=== PATIENT | male | born 1945 | race Caucasian/White ===

== ENCOUNTER → 2016-06-22 | Outpatient (CLI) | payer OTHER ==
[~2016-06-22] MED LIST: APIX1TAB3 PO; ASPI81TA28 PO; CHOL20005 PO; CIPR-255 PO; CLC100X PO; CLOP1TAB15 PO; CYCL10TA6 PO; DORZ2SOL17 OP; FURO40TA3 PO; HYDR-4717 PO; HYDR-5688 PO; INSUINJ12 SC; LATA0.009 OPB; LOVA40TA3 PO; LOVA40TA43 PO; LVMI PO; LVMI SC; MAGNTAB4 PO; MCRK20 PO; MECL1TAB42 PO; METO100T7 PO; NTRGSL/4 UT; NVLG SQ; NVLGI SC; RANI300T2 PO; SLWMEC PO; TRIATAB3 PO; TRSOPS2 OPL; ULT/50 PO; WARF5TAB7 PO
[2016-06-23 06:34] LABS: ESTIMATED AVERAGE GLUCOSE 194 mg/dl; HA1C FLAG Normal (Normal)
== END | disposition home or self-care (01) ==
LOC: C.LABBFT 12:36
PROVIDERS: ATTEND Urology
DX: Z12.5 Encounter for screening for malignant neoplasm of prostate (principal); E11.39 Type 2 diabetes mellitus with other diabetic ophthalmic complication; E11.65 Type 2 diabetes mellitus with hyperglycemia

== ENCOUNTER → 2016-07-27 | Outpatient (CLI) | payer OTHER ==
[2016-07-27 12:30] LABS: CHOLESTEROL/HDL RATIO 3.4
[2016-07-27 12:48] LABS: ESTIMATED AVERAGE GLUCOSE 186 mg/dl; HA1C FLAG Normal (Normal)
== END | disposition home or self-care (01) ==
LOC: C.LABBFT 09:20
PROVIDERS: ATTEND Internal Medicine
DX: E78.5 Hyperlipidemia, unspecified (principal); E11.49 Type 2 diabetes mellitus with other diabetic neurological complication

== ENCOUNTER 2016-08-07 17:34 | Emergency (ER) | payer OTHER ==
[~2016-08-07] VITALS: Ht 172.7 cm; Wt 100.4 kg
[~2016-08-07 17:34] MED LIST changes: -ASPI81TA28 PO; -DORZ2SOL17 OP; -HYDR-5688 PO; -LATA0.009 OPB; -LOVA40TA3 PO; -LVMI PO; -LVMI SC; -MAGNTAB4 PO; -NVLG SQ; -SLWMEC PO; -WARF5TAB7 PO
[2016-08-07 17:47] VITALS: TEMP 36.9; Ht 172.7 cm; Wt 100.4 kg
[2016-08-07] MEDS ORDERED: LVMI PO (19:18)
[2016-08-07] MEDS ORDERED: LOVA40TA3 PO (19:18)
[2016-08-07] MEDS ORDERED: NVLG SQ (19:18)
[2016-08-07] MEDS ORDERED: WARF5TAB7 PO (19:18)
[2016-08-07] MEDS ORDERED: MAGNTAB4 PO (19:18)
[2016-08-07] MEDS ORDERED: DORZ2SOL17 OP (19:19)
[2016-08-07] MEDS ORDERED: LVMI SC (19:33)
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
--- NOTE | 2016-08-07 19:46 | EMERGENCY ROOM VISIT NOTE ---
ED Visit Note First contact with patient: 18:53 I have seen and examined this patient with Dez Sanford and generally agree with the treatment plan as discussed. 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 (4) Chronic Kidney Disease, Stage Iii (Moderate) Status: Chronic (5) Diab Mary Anne Wo Comp Type Ii Or Nos/Not Uncontrolled Status: Chronic (6) Hyperglycemia Status: Resolved (7) Hypertension Nos Status: Chronic (8) New onset a-fib Status: Chronic Surgical Problems: (1) H/O heart artery stent Status: Resolved Current/Historical Medications Scheduled Cholecalciferol (Vitamin D3), 2,000 UNITS PO QAM Clopidogrel (Plavix), 75 MG PO Q2D Dorzolamide Hcl (Trusopt Oph), 1 DROPS OP HS Furosemide (Lasix), 40 MG PO PRN Hydralazine Hcl (Apresoline), 75 MG PO QID Insulin Aspart (Novolog), SQ ACHS Insulin Detemir (Levemir), 18 UNITS PO QPM Insulin Detemir (Levemir), 15 UNITS SC QAM Latanoprost (Xalatan 0.005% Oph Tracy), 1 DROP OPB HS Lovastatin (Mevacor), 80 MG PO HS Magnesium Chloride (Slow-Mag Tab), 64 MG PO DAILY Metoprolol Succinate (Toprol Xl), 100 MG PO QAM Nitroglycerin (Nitrostat), 0.4 MG UT PRN Potassium Chloride (Klor-Con M20), 20 MEQ PO PRN Ranitidine Hcl (Zantac), 300 MG PO QAM Triamterene/Hctz (Triamterene/Hctz 37.5-25MG), 1 TAB PO QAM Warfarin Sod (Jantoven), 5 MG PO D Allergies Coded Allergies: Penicillins (Verified Allergy, Severe, FACIAL SWELLING AND RASH, 06/03/15) Amoxicillin (Verified Allergy, Intermediate, RASH, 06/03/15) Clavulanic Acid (Verified Allergy, Intermediate, RASH, 06/03/15) Azithromycin (Unverified Allergy, Unknown, per nephro note, 06/03/15) Cholestyramine (Unverified Allergy, Unknown, per nephro note, 06/03/15) Niacin (Unverified Allergy, Unknown, per nephro note, 06/03/15) Phenylephrine (Unverified Allergy, Unknown, per nephro note, 06/03/15) Statins (Verified Allergy, Unknown, JOINT STIFFNESS AND PAIN, 06/03/15) Vital Signs Date Time Temp Pulse Resp B/P Pulse Ox O2 Delivery O2 Flow Rate FiO2 08/07/16 17:47 36.9 78 20 160/90 94 Room Air Departure Information Referrals Bon Macias M.D. (PCP) Patient Instructions My [facility]
[2016-08-07] MEDS ORDERED: HYDR-5688 PO (20:03)
[2016-08-07 20:05] VITALS: BP 169/96; PULSE 91; O2SAT 96
[2016-08-07] MEDS ORDERED: LATA0.009 OPB (23:10)
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
== END 2016-08-07 20:08 | disposition home or self-care (01) ==
LOC: C.EDB 17:35 → C.EDD 20:08
DX: M25.511 Pain in right shoulder (principal); S22.41XA Multiple fractures of ribs, right side, initial encounter for closed fracture; V18.0XXA Pedal cycle driver injured in noncollision transport accident in nontraffic accident, initial encounter; Y92.096 Garden or yard of other non-institutional residence as the place of occurrence of the external cause; G51.0 Bell's palsy; I25.10 Atherosclerotic heart disease of native coronary artery without angina pectoris; N18.3 Chronic kidney disease, stage 3 (moderate); E11.9 Type 2 diabetes mellitus without complications; I12.9 Hypertensive chronic kidney disease with stage 1 through stage 4 chronic kidney disease, or unspecified chronic kidney disease; I48.91 Unspecified atrial fibrillation; Z79.4 Long term (current) use of insulin; Z79.01 Long term (current) use of anticoagulants; Z79.02 Long term (current) use of antithrombotics/antiplatelets; Z79.899 Other long term (current) drug therapy

== ENCOUNTER → 2016-08-23 | Outpatient (CLI) | payer OTHER ==
[~2016-08-23] MED LIST changes: -APIX1TAB3 PO; +ASPI81TA28 PO; -CIPR-255 PO; -CLC100X PO; -CYCL10TA6 PO; +DORZ2SOL17 OP; +HYDR-5688 PO; -INSUINJ12 SC; +LATA0.009 OPB; +LOVA40TA3 PO; -LOVA40TA43 PO; +LVMI PO; +LVMI SC; +MAGNTAB4 PO; -MECL1TAB42 PO; +NVLG SQ; -NVLGI SC; +SLWMEC PO; -TRSOPS2 OPL; -ULT/50 PO; +WARF5TAB7 PO
[2016-08-23 12:44] LABS: URINE APPEARANCE CLEAR (CLEAR); URINE BILIRUBIN NEG (NEG); URINE COLOR YELLOW; URINE EPITHELIAL CELL AUTO 0-5 /lpf (0-5); URINE NITRITE NEG (NEG); URINE SPECIFIC GRAVITY 1.017 (1.000-1.030); UROBILINOGEN NEG (NEG)
[2016-08-23 12:55] LABS: MANUAL MICROSCOPIC REQUIRED? NO; REVIEW REQ? NO
[2016-08-23 12:59] LABS: URINE PROTIEN/CREAT RATIO 0.4 (0-0.2); URINE TOTAL PROTEIN 50.8 mg/dl (0-11.9)
[2016-08-23 13:13] LABS: HEMATOCRIT 48.6 % (42-52); MEAN CORPUSCULAR HEMOGLOBIN 32.2 pg (25-34); MEAN CORPUSCULAR HGB CONC 35.8 g/dl (32-36); MEAN PLATELET VOLUME 10.2 fL (7.4-10.4); PLATELET COUNT 217 K/uL (130-400)
[2016-08-23 13:47] LABS: BLOOD UREA NITROGEN 29 mg/dl (7-18); CARBON DIOXIDE 31 mmol/L (21-32); CHLORIDE 101 mmol/L (98-107); GLUCOSE 268 mg/dl (70-99); POTASSIUM 4.5 mmol/L (3.5-5.1); SODIUM 140 mmol/L (136-145)
[2016-08-23 13:48] LABS: PHOSPHORUS 2.8 mg/dl (2.5-4.9)
[2016-08-23 13:55] LABS: CALCIUM 9.3 mg/dl (8.5-10.1)
== END | disposition home or self-care (01) ==
LOC: C.LABBFT 07:51
PROVIDERS: ATTEND Internal Medicine Nephrology
DX: I12.9 Hypertensive chronic kidney disease with stage 1 through stage 4 chronic kidney disease, or unspecified chronic kidney disease (principal); N18.3 Chronic kidney disease, stage 3 (moderate); R80.9 Proteinuria, unspecified; E55.9 Vitamin D deficiency, unspecified; R31.29 Other microscopic hematuria

== ENCOUNTER 2016-09-28 10:45 | Inpatient (IN) | payer OTHER ==
[~2016-09-28] VITALS: Ht 172.7 cm; Wt 97.2 kg
[~2016-09-28 10:45] MED LIST changes: -ASPI81TA28 PO; -SLWMEC PO
[2016-09-28] MEDS ORDERED: ASPIRIN 81 MG CHEW PO STA (11:00)
[2016-09-28] MEDS ORDERED: NITROGLYCERIN OINT 2% 1GM PACKET EXT ONE (11:00)
--- NOTE | 2016-09-28 11:06 | EMERGENCY ROOM VISIT NOTE ---
History Report prepared by Himanshu: Ever Soriano Under the Supervision of: Dr. Davis Dickens D.O. First contact with patient: 10:52 Chief Complaint: CHEST PAIN Stated Complaint: SOB, SOME CHEST PAIN History of Present Illness The patient is a 71 year old male who presents to the Emergency Room with complaints of intermittent chest pain that started this week. He says that has been experiencing intermittent shortness of breath as well. The patient notes that the chest pain is worsened by exertion, including when he was raking his garden. He says that the pain did not get better for quite a while after he stopped raking. The patient's notes that the patient had a heart catheterization in 2014, and had 4 stents put in. The patient says that his pain this week has been similar to the chest pain he experienced when he had the heart procedures. The patient states that he currently has some lower chest pressure. He denies any neck pain, back pain, or pain or swelling in his legs. He called his primary care office today, and was told to come here. He has not seen his primary care physician or any other physician for this current chest pain. The patient did take all his medications this morning. He carries nitro with him, but he did not take any nitro this week. His last Coumadin level check -up was last week. Source of History: patient, spouse/significant other Onset: This week Position: chest Timing: intermittent Modifying Factors (Worsening): exertion Associated Symptoms: + SOB, No back pain, No neck pain Note: Associated symptoms: Denies any swelling or pain to his legs. Review of Systems See HPI for pertinent positives & negatives. A total of 10 systems reviewed and were otherwise negative. 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 (4) Chronic Kidney Disease, Stage Iii (Moderate) (5) Diab Mary Anne Wo Comp Type Ii Or Nos/Not Uncontrolled (6) Hyperglycemia (7) Hypertension Nos (8) New onset a-fib Surgical Problems: (1) H/O heart artery stent Family History Cancer Diabetes mellitus Heart disease Hypertension Kidney disease Kidney stones Lung disease Social History Smoking Status: Former Smoker Alcohol Use: none Marital Status: Housing Status: lives with family Occupation Status: retired Current/Historical Medications Scheduled Cholecalciferol (Vitamin D3), 2,000 UNITS PO QAM Clopidogrel (Plavix), 75 MG PO Q2D Dorzolamide Hcl (Trusopt Oph), 1 DROPS OP HS Furosemide (Lasix), 40 MG PO PRN Hydralazine Hcl (Apresoline), 75 MG PO QID Insulin Aspart (Novolog), SQ ACHS Insulin Detemir (Levemir), 18 UNITS PO QPM Insulin Detemir (Levemir), 15 UNITS SC QAM Latanoprost (Xalatan 0.005% Oph Tracy), 1 DROP OPB HS Lovastatin (Mevacor), 80 MG PO HS Magnesium Chloride (Slow-Mag Tab), 64 MG PO DAILY Metoprolol Succinate (Toprol Xl), 100 MG PO QAM Nitroglycerin (Nitrostat), 0.4 MG UT PRN Potassium Chloride (Klor-Con M20), 20 MEQ PO PRN Ranitidine Hcl (Zantac), 300 MG PO QAM Triamterene/Hctz (Triamterene/Hctz 37.5-25MG), 1 TAB PO QAM Warfarin Sod (Jantoven), 5 MG PO D Allergies Coded Allergies: Penicillins (Verified Allergy, Severe, FACIAL SWELLING AND RASH, 09/28/16) Amoxicillin (Verified Allergy, Intermediate, RASH, 09/28/16) Clavulanic Acid (Verified Allergy, Intermediate, RASH, 09/28/16) Azithromycin (Unverified Allergy, Unknown, per nephro note, 09/28/16) Cholestyramine (Unverified Allergy, Unknown, per nephro note, 09/28/16) Niacin (Unverified Allergy, Unknown, per nephro note, 09/28/16) Phenylephrine (Unverified Allergy, Unknown, per nephro note, 09/28/16) Statins (Verified Allergy, Unknown, JOINT STIFFNESS AND PAIN, 09/28/16) Physical Exam Vital Signs Date Time Temp Pulse Resp B/P Pulse Ox O2 Delivery O2 Flow Rate FiO2 09/28/16 13:06 87 20 173/106 93 Room Air 09/28/16 12:08 83 18 160/91 94 Room Air 09/28/16 11:33 81 09/28/16 11:07 96 Room Air 09/28/16 10:57 94 Room Air 09/28/16 10:47 37.0 88 20 162/77 95 Room Air Physical Exam GENERAL: Patient is awake, alert, and in no acute distress. Patient is resting comfortably and showing no signs of anxiety EYES: The conjunctivae are clear. The pupils are round and reactive. EARS, NOSE, MOUTH AND THROAT: The nose is without any evidence of any deformity. Mucous membranes are moist tongue is midline NECK: The neck is nontender and supple. RESPIRATORY: Normal respiratory effort is noted there is no evidence of wheezing rhonchi or rales CARDIOVASCULAR: Irregular rhythm noted. No definite murmur noted to auscultation. GASTROINTESTINAL: The abdomen is soft. Bowel sounds are present in all quadrants. Abdomen is nontender MUSCULOSKELETAL/EXTREMITIES: There is no evidence of gross deformity full range of motion is noted in the hips and shoulders SKIN: Pedal edema bilaterally. NEUROLOGIC: Patient is awake alert and oriented x3. Medical Decision & Procedures ER Provider Diagnostic Interpretation: X-ray results as stated below per interpretation by me and the radiologist. SINGLE VIEW CHEST CLINICAL HISTORY: Atypical chest pain. FINDINGS: An AP, portable, upright chest radiograph is compared to study dated and correlated with chest CT dated 09/15/2013. The examination is degraded by portable technique and patient rotation. The heart is enlarged. The pulmonary vasculature is noncongested. Chronic interstitial thickening is unchanged. Bibasilar atelectasis is observed. There is no airspace consolidation typical for pneumonia or large pleural effusion. No pneumothorax is seen. The skeletal structures are osteopenic. There are healed left-sided rib fractures. IMPRESSION: Cardiomegaly with no acute cardiopulmonary abnormality. Electronically signed by: Barney Evangelista M.D. 09/28/2016 11:19 AM Dictated Date/Time: 09/28/2016 11:18 AM Laboratory Results 09/28/16 11:07 Red Blood Count 5.64, Mean Corpuscular Volume 90.4, Mean Corpuscular Hemoglobin 31.2, Mean Corpuscular Hemoglobin Concent 34.5, Mean Platelet Volume 9.5, Neutrophils (%) (Auto) 71.6, Lymphocytes (%) (Auto) 14.2, Monocytes (%) (Auto) 12.0, Eosinophils (%) (Auto) 1.4, Basophils (%) (Auto) 0.7, Neutrophils # (Auto ) 5.45, Lymphocytes # (Auto) 1.08, Monocytes # (Auto) 0.91, Eosinophils # (Auto ) 0.11, Basophils # (Auto) 0.05 09/28/16 11:07 Test 09/28/16 11:07 White Blood Count 7.61 K/uL (4.8-10.8) Red Blood Count 5.64 M/uL (4.7-6.1) Hemoglobin 17.6 g/dL (14.0-18.0) Hematocrit 51.0 % (42-52) Mean Corpuscular Volume 90.4 fL (80-100) Mean Corpuscular Hemoglobin 31.2 pg (25-34) Mean Corpuscular Hemoglobin Concent 34.5 g/dl (32-36) Platelet Count 196 K/uL (130-400) Mean Platelet Volume 9.5 fL (7.4-10.4) Neutrophils (%) (Auto) 71.6 % Lymphocytes (%) (Auto) 14.2 % Monocytes (%) (Auto) 12.0 % Eosinophils (%) (Auto) 1.4 % Basophils (%) (Auto) 0.7 % Neutrophils # (Auto) 5.45 K/uL (1.4-6.5) Lymphocytes # (Auto) 1.08 K/uL (1.2-3.4) Monocytes # (Auto) 0.91 K/uL (0.11-0.59) Eosinophils # (Auto) 0.11 K/uL (0-0.5) Basophils # (Auto) 0.05 K/uL (0-0.2) RDW Standard Deviation 45.5 fL (36.4-46.3) RDW Coefficient of Variation 13.8 % (11.5-14.5) Immature Granulocyte % (Auto) 0.1 % Immature Granulocyte # (Auto) 0.01 K/uL (0.00-0.02) Anion Gap 7.0 mmol/L (3-11) Est Creatinine Clear Calc Drug Dose 39.6 ml/min Estimated GFR () 39.7 Estimated GFR (Non- 34.2 BUN/Creatinine Ratio 16.9 (10-20) Calcium Level 8.8 mg/dl (8.5-10.1) Total Bilirubin 0.7 mg/dl (0.2-1) Direct Bilirubin mg/dl (0-0.2) Aspartate Amino Transf (AST/SGOT) 29 U/L (15-37) Alanine Aminotransferase (ALT/SGPT) 32 U/L (12-78) Alkaline Phosphatase 106 U/L (45-117) Total Protein 7.3 gm/dl (6.4-8.2) Albumin 3.8 gm/dl (3.4-5.0) Lipase 133 U/L (73-393) Chemistry Specimen Hemolysis Laboratory results per my review. Medications Administered Medications (Trade) Dose Ordered Sig/Vince Route Start Time Stop Time Status Last Admin Dose Admin Nitroglycerin (Nitroglycerin 2% Oint) 1 inch NOW ONCE EXT 09/28/16 11:00 09/28/16 11:01 DC 09/28/16 11:13 1 INCH Aspirin (Aspirin Chew) 324 mg NOW STAT PO 09/28/16 11:00 09/28/16 11:01 DC 09/28/16 11:13 324 MG ECG Indication: chest pain Rate (beats per minute): 91 Rhythm: atrial fibrillation Findings: ST depression (Lateral), no ectopy Comparison ECG Date: ST segments are minimally worsened compared to March 05 2015 ED Course 1056: The patient was evaluated in room C3. A complete history and physical examination were performed. 1100: Ordered Aspirin Chew 324 mg PO, Nitroglycerin 2% Oint 1 inch. 1238: I reevaluated the patient and he is resting comfortably. The patient verbally expressed understanding and agreement with the treatment plan. The patient will be evaluated for further treatment. 1249: I discussed the patient with Dr. Stanton Lin [facility] bone drier. He will evaluate the patient for further treatment. Medical Decision Prior records/ancillary studies reviewed. Triage Nursing notes reviewed. Additional history obtained from . The patient's history was concerning for chest pain. Differential diagnosis: Etiologies such as cardiac ischemia, aortic dissection, pulmonary embolism, pneumonia, pneumothorax, musculoskeletal, infections, pericarditis, myocarditis , esophageal rupture, gastrointestinal, as well as others were entertained. The patient is a 71-year-old male who presented to the emergency department for an evaluation of chest discomfort. The patient describes discomfort which began with exertion. The patient has a history of coronary artery disease and has had coronary artery stenting in the past. I discussed the patient's laboratory and radiographic studies with him. I also discussed the limitations of the emergency department workup for chest pain with him. Given the patient's history and exertional symptoms. I do feel that he is at high risk. I discussed his case with the on-call [facility] hospitalist. They've agreed to evaluate the patient in the emergent department for further management and disposition. The patient was treated with nitroglycerin and aspirin in the emergency department. On subsequent reevaluation he was feeling much better. Consults Time Called: [phone] Consulting Physician: Dr. Stanton MOYA bone drier Returned Call: [phone] (in person) I discussed the patient with Dr. Stanton MOYA bone drier. He will evaluate the patient for further treatment. Impression Primary Impression: Chest pain Additional Impression: Abnormal EKG Scribe Attestation The scribe's documentation has been prepared under my direction and personally reviewed by me in its entirety. I confirm that the note above accurately reflects all work, treatment, procedures, and medical decision making performed by me. Departure Information Dispostion Being Evaluated By Hospitalist Referrals Bon Macias M.D. (PCP) Patient Instructions My [facility] Problem Qualifiers Primary Impression: Chest pain Chest pain type: unspecified Qualified Codes: R07.9 - Chest pain, unspecified
--- NOTE | 2016-09-28 11:20 | DIAGNOSTIC IMAGING REPORT ---
SINGLE VIEW CHEST CLINICAL HISTORY: Atypical chest pain. FINDINGS: An AP, portable, upright chest radiograph is compared to study dated and correlated with chest CT dated 09/15/2013. The examination is degraded by portable technique and patient rotation. The heart is enlarged. The pulmonary vasculature is noncongested. Chronic interstitial thickening is unchanged. Bibasilar atelectasis is observed. There is no airspace consolidation typical for pneumonia or large pleural effusion. No pneumothorax is seen. The skeletal structures are osteopenic. There are healed left-sided rib fractures. IMPRESSION: Cardiomegaly with no acute cardiopulmonary abnormality. Electronically signed by: Barney Evangelista M.D. 09/28/2016 11:19 AM Dictated Date/Time: 09/28/2016 11:18 AM
[2016-09-28 11:29] LABS: BASO % 0.7 %; BASO ABS # 0.05 K/uL (0-0.2); COMPLETE YES; EOS % 1.4 %; IG% 0.1 %; LYMPH % 14.2 %; LYMPH ABS # 1.08 K/uL (1.2-3.4); MEAN CELL VOLUME 90.4 fL (80-100); MEAN CORPUSCULAR HEMOGLOBIN 31.2 pg (25-34); MEAN CORPUSCULAR HGB CONC 34.5 g/dl (32-36); MEAN PLATELET VOLUME 9.5 fL (7.4-10.4); NEUT % 71.6 %; PLATELET COUNT 196 K/uL (130-400); RED BLOOD COUNT 5.64 M/uL (4.7-6.1); WHITE BLOOD COUNT 7.61 K/uL (4.8-10.8)
[2016-09-28] MEDS ORDERED: SLWMEC PO (11:44)
[2016-09-28 12:05] LABS: ALKALINE PHOSPHATASE 106 U/L (45-117); ALT/SGPT 32 U/L (12-78); AST/SGOT 29 U/L (15-37); BLOOD UREA NITROGEN 32 mg/dl (7-18); BUN/CREATININE RATIO 16.9 (10-20); CALCIUM 8.8 mg/dl (8.5-10.1); CARBON DIOXIDE 30 mmol/L (21-32); CHLORIDE 103 mmol/L (98-107); CKMB/CK RATIO 2.3 (0-3.0); GLUCOSE 297 mg/dl (70-99); POTASSIUM 4.2 mmol/L (3.5-5.1); SODIUM 140 mmol/L (136-145)
[2016-09-28] MEDS ORDERED: POLYETHYLENE (MIRALAX) 17 GM PACK PO PRN (13:30)
[2016-09-28] MEDS ORDERED: ACETAMINOPHEN 325 MG TAB PO PRN (13:30)
[2016-09-28] MEDS ORDERED: ALUMINUM/MAGNESIUM/SIMETH (MAALOX MAX) 30 ML UDC PO PRN (13:30)
[2016-09-28] MEDS ORDERED: ONDANSETRON INJ 2 MG/ML 2 ML VIAL IV PRN (13:30)
[2016-09-28] MEDS ORDERED: NITROGLYCERIN 0.4 MG SL PER TAB CHARGE SL PRN (13:30)
[2016-09-28] MEDS ORDERED: MAGNESIUM HYDROXIDE SUSP 30 ML UDC PO PRN (13:30)
[2016-09-28] MEDS ORDERED: POTASSIUM CHLORIDE 20 MEQ TABCR PO PRN (13:45)
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
[2016-09-28] MEDS ORDERED: GLUCAGON FOR INJ 1 MG VIAL SQ PRN (14:15)
[2016-09-28] MEDS ORDERED: GLUCOSE 40% GEL 15 GM TUBE PO PRN (14:15)
[2016-09-28] MEDS ORDERED: DEXTROSE 50% 50 ML SYR IV PRN (14:15)
[2016-09-28] MEDS ORDERED: IV FLUIDS COMPLETED PRN (14:15)
[2016-09-28] MEDS ORDERED: GLUCOSE 10 TABS/TUBE PO PRN (14:15)
[2016-09-28 14:46] VITALS: BP 150/104; PULSE 78; TEMP 36.6; O2SAT 95; Ht 172.7 cm; Wt 97.2 kg
[2016-09-28 15:19] VITALS: BP 138/85; PULSE 76; TEMP 36.8; O2SAT 96
[2016-09-28 15:36] LABS: INR 2.5 (0.9-1.1); PARTIAL THROMBOPLASTIN RATIO 1.4; PROTHROMBIN TIME (PATIENT) 28.1 SECONDS (9.0-12.0)
[2016-09-28] MEDS ORDERED: DC ALL ANTICOAGULANTS ONE (16:00)
[2016-09-28] MEDS ORDERED: WARFARIN SOD 5 MG TAB PO SCH (16:00)
--- NOTE | 2016-09-28 16:10 | Cardiology Consultation ---
Cardiology Consultation Date of Consultation: September 28, 2016. Requesting Physician: Dr. Eid Reason for Consultation: Chest pain Pt evaluation today including: conversation w/ patient, conversation w/ family , physical exam, lab review, review of studies, review of inpatient medication list, conversation w/ attending History of Present Illness This is a very pleasant 71-year-old gentleman who has a long history of coronary artery disease, including LAD stent placement 2011 and triple-vessel stenting in 2014. He has chronic renal insufficiency and hyperlipidemia. He also has permanent atrial fibrillation and is maintained on warfarin. Over the last 4 days or so he has developed substernal chest discomfort with minimal exertion. It is a pressure sensation, occurs with activity and not at rest, is not associated with palpitations but it is associated with shortness of breath. He feels this is the same discomfort he had prior to his stenting in 2014. The discomfort is relieved in several minutes with rest. He called the office for an appointment and was directed to the emergency room. In the emergency room he had no acute changes, his enzymes were negative and he was placed on topical nitroglycerin. He has had no further symptoms and feels well in his room. He does note occasionally that he gets fluid retention which he notes causes shortness of breath but not chest discomfort. He does occasionally notice peripheral edema at those times but has not had that. He does not have orthopnea or PND. Past Medical/Surgical History (1) Hyperglycemia (2) Chronic Kidney Disease, Stage Iii (Moderate) (3) Hypertension Nos (4) CAD (coronary artery disease) Family History Cancer Diabetes mellitus Heart disease Hypertension Kidney disease Kidney stones Lung disease Social History Smoking Status: Former Smoker History of Alcohol Use: No Review of Systems Constitutional: No fever, No weakness, No weight loss Respiratory: + shortness of breath, No cough, No dyspnea on exertion, No wheezing Cardiac: + chest pain, + see HPI, No PND, No edema, No orthopnea, No palpitations Abdomen: No GI bleeding, No diarrhea, No nausea, No pain, No vomiting Male : No nocturia more than once/night, No sexual dysfunction, No slowing stream, No urinary frequency Neurologic: No balance problems, No numbness/tingling, No paralysis, No weakness Heme: No abnormal bleeding/bruising, No clotting problems Endo: No fatigue Skin: No problem reported All Other Systems: Reviewed and Negative Allergies Coded Allergies: Penicillins (Verified Allergy, Severe, FACIAL SWELLING AND RASH, 09/28/16) Amoxicillin (Verified Allergy, Intermediate, RASH, 09/28/16) Clavulanic Acid (Verified Allergy, Intermediate, RASH, 09/28/16) Azithromycin (Unverified Allergy, Unknown, per nephro note, 09/28/16) Cholestyramine (Unverified Allergy, Unknown, per nephro note, 09/28/16) Niacin (Unverified Allergy, Unknown, per nephro note, 09/28/16) Phenylephrine (Unverified Allergy, Unknown, per nephro note, 09/28/16) Statins (Verified Allergy, Unknown, JOINT STIFFNESS AND PAIN, 09/28/16) Medications Current Inpatient Medications Medications (Trade) Dose Ordered Sig/Vince Route Start Time Stop Time Status Last Admin Dose Admin Acetaminophen (Tylenol Tab) 650 mg Q4H PRN PO 09/28/16 13:30 10/28/16 13:29 Al Hydrox/Mg Hydrox/Simethicone (Maalox Max Susp) 15 ml Q4H PRN PO 09/28/16 13:30 10/28/16 13:29 Magnesium Hydroxide (Milk Of Magnesia Susp) 30 ml Q12H PRN PO 09/28/16 13:30 10/28/16 13:29 Ondansetron HCl (Zofran Inj) 4 mg Q6H PRN IV 09/28/16 13:30 10/28/16 13:29 Nitroglycerin (Nitrostat Tab) 0.4 mg UD PRN SL 09/28/16 13:30 10/28/16 13:29 Polyethylene (Miralax Powder Packet) 17 gm DAILY PRN PO 09/28/16 13:30 10/28/16 13:29 Clopidogrel Bisulfate (plAVix TAB) 75 mg Q2D PO 09/29/16 09:00 10/29/16 08:59 Dorzolamide HCl (Trusopt 2% Oph Soln) 1 drops HS OP 09/28/16 21:00 10/28/16 20:59 Hydralazine HCl (Apresoline Tab) 75 mg QID PO 09/28/16 17:00 10/28/16 16:59 Latanoprost (Xalatan Oph Soln) 1 drops HS OPB 09/28/16 21:00 10/28/16 20:59 Lovastatin (Mevacor Tab) 40 mg HS PO 09/28/16 21:00 10/28/16 20:59 Metoprolol Succinate (Toprol Xl Tab) 100 mg QAM PO 09/29/16 09:00 10/29/16 08:59 Ranitidine HCl (zANTac TAB) 300 mg QAM PO 09/29/16 09:00 10/29/16 08:59 Warfarin Sodium (Coumadin Tab) 5 mg DAILY@1600 PO 09/28/16 16:00 10/28/16 15:59 Insulin Detemir (Levemir Flexpen/ FlexTouch) 15 unit QAM SC 09/29/16 09:00 10/29/16 08:59 Insulin Detemir (Levemir Flexpen/ FlexTouch) 18 unit QPM SQ 09/28/16 21:00 10/28/16 20:59 Magnesium Chloride (Slow-Mag Tab) 64 mg DAILY PO 09/29/16 09:00 10/29/16 08:59 Potassium Chloride (Klor-Con Tab) 20 meq DAILY PRN PO 09/28/16 13:45 10/28/16 13:44 Triamterene/HCTZ (Maxzide 37.5/25 Tab) 1 tab QAM PO 09/29/16 09:00 10/29/16 08:59 Miscellaneous (Iv Fluids Completed) 1 ea PRN PRN N/A 09/28/16 14:15 09/28/17 14:14 Glucose (Glucose 40% Gel) 15-30 GRAMS 15 GRAMS... UD PRN PO 09/28/16 14:15 10/28/16 14:14 Glucose (Glucose Chew Tab) 4-8 Tablets 4 Tabl... UD PRN PO 09/28/16 14:15 10/28/16 14:14 Dextrose (Dextrose 50% 50ML Syringe) 25-50ML OF 50% DW IV FOR... UD PRN IV 09/28/16 14:15 10/28/16 14:14 Glucagon (Glucagon Inj) 1 mg UD PRN SQ 09/28/16 14:15 10/28/16 14:14 Insulin Aspart (novoLOG ASPART) SLIDING SCALE G... ACHS SC 09/28/16 16:00 10/28/16 15:59 Physical Exam Vital Signs Past 12 Hours Date Time Temp Pulse Resp B/P Pulse Ox O2 Delivery O2 Flow Rate FiO2 09/28/16 15:19 36.8 76 20 138/85 96 Room Air 09/28/16 14:46 36.6 78 18 150/104 09/28/16 13:48 77 18 146/91 93 Room Air 09/28/16 13:06 87 20 173/106 93 Room Air 09/28/16 12:08 83 18 160/91 94 Room Air 09/28/16 11:33 81 09/28/16 11:07 96 Room Air 09/28/16 10:57 94 Room Air 09/28/16 10:47 37.0 88 20 162/77 95 Room Air Constitutional: General Apperance: heathly-appearing Level of Distress: NAD Psychiatric: Mental Status: active & alert Head: normocephalic Eyes: EOM: EOMI ENMT: normal ENT inspection, hearing grossly normal Neck: supple, no masses Lungs: Respiratory effort: no dyspnea, good air movement Auscultation: breath sounds normal, no wheezing Cardiovascular: Heart Auscultation: RRR, no murmurs, no rubs, no gallops Peripheral Pulses: Bruits: none appreciated Abdomen: Bowel Sounds: normal Inspection & Palpation: soft, no tenderness, guarding & rebound, no masses Musculoskeletal: normal strength (5/5 throughout) Extremities: no edema Neurologic: Cranial Nerves: grossly intact Sensation: grossly intact Data Laboratory Results: Last 24 Hours Test 09/28/16 11:07 09/28/16 15:04 09/28/16 15:13 White Blood Count 7.61 K/uL Red Blood Count 5.64 M/uL Hemoglobin 17.6 g/dL Hematocrit 51.0 % Mean Corpuscular Volume 90.4 fL Mean Corpuscular Hemoglobin 31.2 pg Mean Corpuscular Hemoglobin Concent 34.5 g/dl Platelet Count 196 K/uL Mean Platelet Volume 9.5 fL Neutrophils (%) (Auto) 71.6 % Lymphocytes (%) (Auto) 14.2 % Monocytes (%) (Auto) 12.0 % Eosinophils (%) (Auto) 1.4 % Basophils (%) (Auto) 0.7 % Neutrophils # (Auto) 5.45 K/uL Lymphocytes # (Auto) 1.08 K/uL Monocytes # (Auto) 0.91 K/uL Eosinophils # (Auto) 0.11 K/uL Basophils # (Auto) 0.05 K/uL RDW Standard Deviation 45.5 fL RDW Coefficient of Variation 13.8 % Immature Granulocyte % (Auto) 0.1 % Immature Granulocyte # (Auto) 0.01 K/uL Sodium Level 140 mmol/L Potassium Level 4.2 mmol/L Chloride Level 103 mmol/L Carbon Dioxide Level 30 mmol/L Anion Gap 7.0 mmol/L Blood Urea Nitrogen 32 mg/dl Creatinine 1.90 mg/dl Est Creatinine Clear Calc Drug Dose 39.6 ml/min Estimated GFR () 39.7 Estimated GFR (Non- 34.2 BUN/Creatinine Ratio 16.9 Random Glucose 297 mg/dl Calcium Level 8.8 mg/dl Total Bilirubin 0.7 mg/dl Direct Bilirubin mg/dl Aspartate Amino Transf (AST/SGOT) 29 U/L Alanine Aminotransferase (ALT/SGPT) 32 U/L Alkaline Phosphatase 106 U/L Total Creatine Kinase 329 U/L Creatine Kinase MB 7.7 ng/ml Creatine Kinase MB Ratio 2.3 Troponin I < 0.015 ng/ml Total Protein 7.3 gm/dl Albumin 3.8 gm/dl Lipase 133 U/L Chemistry Specimen Hemolysis Bedside Glucose 138 mg/dl Prothrombin Time 28.1 SECONDS Prothromb Time International Ratio 2.5 Activated Partial Thromboplast Time 37.0 SECONDS Partial Thromboplastin Ratio 1.4 Chest x-ray: Cardiac enlargement, no CHF EKG: Atrial fibrillation with a controlled heart rate. Nonspecific inferior ST- T abnormalities. No acute changes. Telemetry reviewed: Atrial fibrillation with a controlled heart rate Assessment & Plan #1. Chest discomfort: His symptoms of chest discomfort are very consistent with angina. He was not having it until this week, in that sense it is unstable. He has not had rest angina however and he does not have evidence of infarction so far. I agree with trending enzymes, and we need to evaluate him for progression of disease. He is probably not a good idea to do a stress test in this setting ( unstable angina and possible lack of sensitivity) and I would recommend catheterization. His renal function is somewhat reduced however it is not much worse than in the past and is probably adequate for catheterization. I will review this with Dr. Long. We also have to reverse his INR, which is somewhat elevated but we can probably get that reversed by tomorrow. I would therefore recommend planning for catheterization tomorrow. #2. Permanent atrial fibrillation: His atrial fibrillation appears to be permanent, however the rate is well controlled and he seems asymptomatic in it. I would not alter his rate control medications, he will need to go back on anticoagulation after catheterization. Perhaps we can bridge him with one of the newer oral agents until his INR rises back to a therapeutic level after the catheterization. Thank you for allowing me to participate in his care.
[2016-09-28] MEDS: INSULIN ASPART 100 UNITS/ML 3 ML PEN SC SCH ×2 (16:56→21:06)
[2016-09-28] MEDS ORDERED: PHYTONADIONE 5 MG TAB PO STA (17:18)
[2016-09-28 18:02] LABS: CKMB/CK RATIO 2.3 (0-3.0)
[2016-09-28 19:51] VITALS: BP_SYST 152; BP_SYST 160; BP_DIAS 104; BP_DIAS 108; PULSE 86; TEMP 36.4; O2SAT 96
[2016-09-28 20:00] VITALS: O2SAT 96
[2016-09-28] MEDS: LATANOPROST 0.005% OP SOLN 2.5 ML BTL OPB SCH (20:56)
[2016-09-28] MEDS: LOVASTATIN 20 MG TAB PO SCH (21:01)
[2016-09-28] MEDS: DORZOLAMIDE HCL 2% OPH SOLN 10 ML BTL OP SCH (21:03)
[2016-09-28] MEDS: INSULIN DETEMIR FLEXPEN/FLEX TOUCH 100 UNITS/ML 3ML SQ SCH (21:05)
[2016-09-28 23:40] LABS: CKMB/CK RATIO 2.2 (0-3.0)
[2016-09-29] VITALS (15 sets, daily range): BP systolic 124–170; BP diastolic 70–140; PULSE 80–95; TEMP 36.5–37.2; O2SAT 92–97
[2016-09-29] MEDS: SODIUM CHLORIDE 0.9% 1000ML 1,000 ML IV SCH ×2 (00:07→10:33)
[2016-09-29 06:17] LABS: INR 1.7 (0.9-1.1); PROTHROMBIN TIME (PATIENT) 18.3 SECONDS (9.0-12.0)
[2016-09-29 06:47] LABS: CHOLESTEROL/HDL RATIO 4.2
[2016-09-29 07:04] LABS: ESTIMATED AVERAGE GLUCOSE 200 mg/dl; HA1C FLAG Normal (Normal)
[2016-09-29] MEDS: METOPROLOL SUCC 50MG EXT REL TAB PO SCH (07:51)
[2016-09-29] MEDS: INSULIN ASPART 100 UNITS/ML 3 ML PEN SC SCH ×4 (07:59→21:05)
[2016-09-29 08:11] LABS: HEMATOCRIT 49.6 % (42-52); MEAN CELL VOLUME 91.3 fL (80-100); MEAN CORPUSCULAR HEMOGLOBIN 31.7 pg (25-34); MEAN CORPUSCULAR HGB CONC 34.7 g/dl (32-36); PLATELET COUNT 182 K/uL (130-400); RED BLOOD COUNT 5.43 M/uL (4.7-6.1); WHITE BLOOD COUNT 9.01 K/uL (4.8-10.8)
[2016-09-29] MEDS ORDERED: CLOPIDOGREL BISULFATE 75 MG TAB PO SCH (09:00)
[2016-09-29] MEDS ORDERED: MAGNESIUM CHLORIDE 64MG DELAYED REL TAB PO SCH (09:00)
[2016-09-29] MEDS ORDERED: RANITIDINE HCL 150 MG TAB PO SCH (09:00)
[2016-09-29 09:20] LABS: BUN/CREATININE RATIO 16.9 (10-20); CREATININE 1.6 mg/dl (0.60-1.40); POTASSIUM 3.9 mmol/L (3.5-5.1)
[2016-09-29 09:24] LABS: CALCIUM 8.7 mg/dl (8.5-10.1)
--- NOTE | 2016-09-29 10:48 | Cardiology Follow-Up ---
Subjective Subjective Date of Service: September 29, 2016. Pt evaluation today including: conversation w/ patient, conversation w/ family , physical exam, chart review, lab review, review of studies, review of inpatient medication list Additional Details: No recurrent chest pain overnight. No other new concerns this AM. Problem List Medical Problems: (1) Abnormal EKG Status: Acute (2) Chest pain Status: Acute (3) Multiple fractures of ribs of right side Status: Acute Review of Systems Constitutional: No fever Respiratory: No cough, No wheezing Cardiac: No chest pain Abdomen: No GI bleeding, No pain Heme: No abnormal bleeding/bruising, No clotting problems Endo: No fatigue Skin: No problem reported Objective Vital Signs Last Vital Signs Documentation Date Time Temp Pulse Resp B/P Pulse Ox O2 Delivery O2 Flow Rate FiO2 09/29/16 06:20 Room Air 09/29/16 04:00 95 09/29/16 04:00 36.8 89 150/99 09/29/16 00:06 20 Physical Exam: General Appearance: no apparent distress ENT: hearing grossly normal, pharynx normal Respiratory/Chest: lungs clear, normal breath sounds, no respiratory distress Cardiovascular: regular rate, rhythm, no edema, no murmur Abdomen: normal bowel sounds, non tender, soft Extremities: normal range of motion, no pedal edema, no calf tenderness, + pertinent finding (2+ radial pulse) Neurologic/Psychiatric: no motor/sensory deficits, alert, normal mood/affect Skin: normal color, warm/dry Lymphatic: no adenopathy Assessment and Plan 1. Accelerating angina 2. CAD s/p prior multivessel stenting in 2014 3. Permanent AF on anticoagulation 4. CKD Agree with Dr. Mcfarland that in the setting of what sounds to be typical angina would proceed directly with repeat cardiac catheterization. Received Vit K yesterday and IV fluids overnight with acceptable INR/SCr this AM. Will tentatively plan on cardiac cath this afternoon. Keep NPO, continue hydration. 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 Medications: Current Inpatient Medications Medications (Trade) Dose Ordered Sig/Vince Route Start Time Stop Time Status Last Admin Dose Admin Acetaminophen (Tylenol Tab) 650 mg Q4H PRN PO 09/28/16 13:30 10/28/16 13:29 Al Hydrox/Mg Hydrox/Simethicone (Maalox Max Susp) 15 ml Q4H PRN PO 09/28/16 13:30 10/28/16 13:29 Magnesium Hydroxide (Milk Of Magnesia Susp) 30 ml Q12H PRN PO 09/28/16 13:30 10/28/16 13:29 Ondansetron HCl (Zofran Inj) 4 mg Q6H PRN IV 09/28/16 13:30 10/28/16 13:29 Nitroglycerin (Nitrostat Tab) 0.4 mg UD PRN SL 09/28/16 13:30 10/28/16 13:29 Polyethylene (Miralax Powder Packet) 17 gm DAILY PRN PO 09/28/16 13:30 10/28/16 13:29 Clopidogrel Bisulfate (plAVix TAB) 75 mg Q2D PO 09/29/16 09:00 10/29/16 08:59 Dorzolamide HCl (Trusopt 2% Oph Soln) 1 drops HS OP 09/28/16 21:00 10/28/16 20:59 09/28/16 21:03 1 DROPS Hydralazine HCl (Apresoline Tab) 75 mg QID PO 09/28/16 17:00 10/28/16 16:59 09/29/16 07:52 75 MG Latanoprost (Xalatan Oph Soln) 1 drops HS OPB 09/28/16 21:00 10/28/16 20:59 09/28/16 20:56 1 DROPS Lovastatin (Mevacor Tab) 40 mg HS PO 09/28/16 21:00 10/28/16 20:59 09/28/16 21:01 40 MG Metoprolol Succinate (Toprol Xl Tab) 100 mg QAM PO 09/29/16 09:00 10/29/16 08:59 09/29/16 07:51 100 MG Ranitidine HCl (zANTac TAB) 300 mg QAM PO 09/29/16 09:00 10/29/16 08:59 Insulin Detemir (Levemir Flexpen/ FlexTouch) 15 unit QAM SC 09/29/16 09:00 10/29/16 08:59 Insulin Detemir (Levemir Flexpen/ FlexTouch) 18 unit QPM SQ 09/28/16 21:00 10/28/16 20:59 09/28/16 21:05 18 UNIT Magnesium Chloride (Slow-Mag Tab) 64 mg DAILY PO 09/29/16 09:00 10/29/16 08:59 Potassium Chloride (Klor-Con Tab) 20 meq DAILY PRN PO 09/28/16 13:45 10/28/16 13:44 Triamterene/HCTZ (Maxzide 37.5/25 Tab) 1 tab QAM PO 09/29/16 09:00 10/29/16 08:59 Miscellaneous (Iv Fluids Completed) 1 ea PRN PRN N/A 09/28/16 14:15 09/28/17 14:14 Glucose (Glucose 40% Gel) 15-30 GRAMS 15 GRAMS... UD PRN PO 09/28/16 14:15 10/28/16 14:14 Glucose (Glucose Chew Tab) 4-8 Tablets 4 Tabl... UD PRN PO 09/28/16 14:15 10/28/16 14:14 Dextrose (Dextrose 50% 50ML Syringe) 25-50ML OF 50% DW IV FOR... UD PRN IV 09/28/16 14:15 10/28/16 14:14 Glucagon (Glucagon Inj) 1 mg UD PRN SQ 09/28/16 14:15 10/28/16 14:14 Insulin Aspart SLIDING SCALE G... ACHS SC 09/28/16 16:00 10/28/16 15:59 09/29/16 07:59 3 UNITS Sodium Chloride (Nss 1000ml) 1,000 ml @ 100 mls/hr Q10H IV 09/29/16 00:00 10/29/16 00:00 09/29/16 10:33 100 MLS/HR Lab Results: 09/29/16 05:58 09/29/16 08:44 Test 09/28/16 11:07 09/28/16 15:13 09/28/16 23:07 09/29/16 05:58 Immature Granulocyte % (Auto) 0.1 % White Blood Count 7.61 K/uL (4.8-10.8) Red Blood Count 5.64 M/uL (4.7-6.1) 5.43 M/uL (4.7-6.1) Hemoglobin 17.6 g/dL (14.0-18.0) Hematocrit 51.0 % (42-52) Mean Corpuscular Volume 90.4 fL (80-100) 91.3 fL (80-100) Mean Corpuscular Hemoglobin 31.2 pg (25-34) 31.7 pg (25-34) Mean Corpuscular Hemoglobin Concent 34.5 g/dl (32-36) 34.7 g/dl (32-36) Platelet Count 196 K/uL (130-400) Mean Platelet Volume 9.5 fL (7.4-10.4) 10.0 fL (7.4-10.4) Neutrophils (%) (Auto) 71.6 % Lymphocytes (%) (Auto) 14.2 % Monocytes (%) (Auto) 12.0 % Eosinophils (%) (Auto) 1.4 % Basophils (%) (Auto) 0.7 % Neutrophils # (Auto) 5.45 K/uL (1.4-6.5) Lymphocytes # (Auto) 1.08 K/uL (1.2-3.4) Monocytes # (Auto) 0.91 K/uL (0.11-0.59) Eosinophils # (Auto) 0.11 K/uL (0-0.5) Basophils # (Auto) 0.05 K/uL (0-0.2) Immature Granulocyte # (Auto) 0.01 K/uL (0.00-0.02) Total Bilirubin 0.7 mg/dl (0.2-1) Direct Bilirubin mg/dl (0-0.2) Aspartate Amino Transf (AST/SGOT) 29 U/L (15-37) Alanine Aminotransferase (ALT/SGPT) 32 U/L (12-78) Alkaline Phosphatase 106 U/L (45-117) Total Protein 7.3 gm/dl (6.4-8.2) Albumin 3.8 gm/dl (3.4-5.0) Lipase 133 U/L (73-393) Chemistry Specimen Hemolysis Activated Partial Thromboplast Time 37.0 SECONDS (21.0-31.0) Partial Thromboplastin Ratio 1.4 Total Creatine Kinase 213 U/L (39-308) Creatine Kinase MB 4.7 ng/ml (0.5-3.6) Creatine Kinase MB Ratio 2.2 (0-3.0) Troponin I < 0.015 ng/ml (0-0.045) RDW Standard Deviation 47.0 fL (36.4-46.3) RDW Coefficient of Variation 14.0 % (11.5-14.5) Prothrombin Time 18.3 SECONDS (9.0-12.0) Prothromb Time International Ratio 1.7 (0.9-1.1) Estimated Average Glucose 200 mg/dl Hemoglobin A1c 8.6 % (4.5-5.6) Triglycerides Level 149 mg/dl (0-150) Cholesterol Level 168 mg/dl (0-200) HDL Cholesterol 40 mg/dl LDL Cholesterol, Calculated 98 mg/dl VLDL Cholesterol, Calculated 30 mg/dl Cholesterol/HDL Ratio 4.2 Test 09/29/16 06:51 09/29/16 08:44 Bedside Glucose 239 mg/dl (70-99) Anion Gap 7.0 mmol/L (3-11) Est Creatinine Clear Calc Drug Dose 46.8 ml/min Estimated GFR () 48.8 Estimated GFR (Non- 42.1 BUN/Creatinine Ratio 16.9 (10-20) Calcium Level 8.7 mg/dl (8.5-10.1)
[2016-09-29] MEDS: TRIAMTERENE/HCTZ 37.5/25MG TAB PO SCH (12:38)
[2016-09-29] MEDS: INSULIN DETEMIR FLEXPEN/FLEX TOUCH 100 UNITS/ML 3ML SC SCH (12:42)
[2016-09-29] MEDS ORDERED: NURSING VERBAL MED ORDER ONE (12:45)
--- NOTE | 2016-09-29 13:27 | Discharge Instructions ---
Discharge Instructions Date of Service September 29, 2016. Admission Reason for Admission: Chest Pain Discharge Discharge Diagnosis / Problem: Chest pain, unstable angina Discharge Goals Goal(s): Decrease discomfort, Improve function, Diagnostic testing, Therapeutic intervention Activity Recommendations Activity Limitations: resume your previous activity . Instructions / Follow-Up Instructions / Follow-Up You were admitted to the hospital for overnight observation after presenting to the ER with chest pain that occurs with physical exertion and resolves with rest. You had a cardiac work up which included cardiac monitoring on the telemetry unit, EKGs, and cardiac enzymes. This cardiac work up came back negative. There were no ischemic changes found on your EKGs or reflected in the cardiac enzymes. You were assessed by cardiology who recommended that you have a repeat cardiac catheterization given the development of unstable angina. Your repeat cardiac cath was normal. Medications: *No changes have been made to your medications. Continue to take your home medications as prescribed. Follow up: *Please follow up with your packaging mechanic, Dr. Motley, and primary care provider in 1 week regarding your hospital stay and cardiac cath results. Please seek medical attention if you experience fevers, chills, sweats, chest pain, shortness of breath, nausea, vomiting, lightheadedness, loss of consciousness, numbness, tingling, or sudden changes in vision. ACTIVITY RECOMMENDATIONS: Excess manipulation of the wrist should be avoided for the next 24-48 hours. * No lifting over 2 pounds (approximately a 1/2 gallon of milk) with the utilized arm for 24 hours. * No strenuous activity such as bowling or tennis for 3 days. * Keep the site of the procedure covered with a bandage for 24 hours. *You may shower the day after the procedure. Do not take a tub bath or submerge the puncture site in water for the next 3 days. *Do not operate any motorized equipment for 3 days. SPECIAL CARE INSTRUCTIONS: The site may be slightly bruised and sore following your procedure. Should any of the following occur, contact the DrCristel who performed your procedure. 1. Redness/inflammation, swelling, chills, or fever, or colored drainage at procedure site within 3-7 days after your procedure. 2. Coldness, discoloration, ongoing numbness, severe pain, or swelling. Expect mild tingling of hand and tenderness at the puncture site for up to three days. If this persists beyond three days, or other symptoms develop, notify the DrCristel who performed your procedure. BLEEDING: If the procedure site on your wrist begins to bleed, do not panic 1. Place 1 or 2 fingers firmly just slightly above the insertion site to stop the bleeding. You may be able to feel your pulse as you hold pressure. 2. Lift your finger after 5 minutes to see if the bleeding has stopped. 3. Once the bleeding has stopped, gently wipe the wrist area clean with a bandage. * If the bleeding from your wrist does not stop after 10 minutes, or if there is a large amount of bleeding or spurting, call 911 (do not drive yourself to the hospital). SKIN IRRITATION: * You may experience some redness and/or swelling in the area where radiation was administered. If any skin irritation occurs, please contact your family physician. FOLLOW UP VISIT: Keep any scheduled doctor appointments. Current Hospital Diet Patient's current hospital diet: AHA Diet (Heart Healthy) Discharge Diet Recommended Diet: AHA Diet (Heart Healthy), Diabetes Type 2 Diet Procedures Procedures Performed: Cardiac catheterization Pending Studies Studies pending at discharge: no Laboratory Results Hemoglobin A1c Test 09/29/16 05:58 Range/Units Estimated Average Glucose 200 mg/dl Hemoglobin A1c 8.6 H 4.5-5.6 % Lipid Panel Test 09/29/16 05:58 Range/Units Triglycerides Level 149 0-150 mg/dl Cholesterol Level 168 0-200 mg/dl HDL Cholesterol 40 mg/dl Cholesterol/HDL Ratio 4.2 LDL Cholesterol, Calculated 98 mg/dl Medical Emergencies . Who to Call and When: Medical Emergencies: If at any time you feel your situation is an emergency, please call 911 immediately. . Non-Emergent Contact Non-Emergency issues call your: Primary Care Provider, Dividing Machine Operator Helper Call Non-Emergent contact if: you have a fever, your pain is not controlled, your pain is worsening, your pain is unusual for you, your pain is concerning you, you have any medication questions . Past History Medical & Surgical History: (1) Chest pain . "Provider Documentation" section prepared by Arabella Silva. . VTE Core Measure Inpt VTE Proph given/why not?: Warfarin (Coumadin) [place] Drug Monitoring Program Drug Monitoring Findings: drink 8 cups of water every day for the next 3 days then drink 6 cups of water a day as maintenance
--- NOTE | 2016-09-29 13:49 | Discharge Summary ---
Discharge Summary Date of Service September 29, 2016. (Arabella Silva PA-C) Discharge Summary Admission Date: September 28, 2016 at 13:31 Discharge Date: September 29, 2016 Discharge Disposition: Home Principal Diagnosis: Chest pain Immunizations: Have You Had Influenza Vaccine: N/A History of Tetanus Vaccine?: Yes History of Pneumococcal: No History of Hepatitis B Vaccine: No Procedures: Cardiac catheterization Consultations: Cardiology--Dr. Mcfarland/Dr. Long (Arabella Silva PA-C) Discharge Date: September 30, 2016 Problems/Secondary Diagnoses: patient was discharged one day after the cath on 09/30 (Williams Prasad MD) Medication Reconciliation Continued Medications: Cholecalciferol (Vitamin D3) 2,000 Unit Tab 2000 UNITS PO QAM Clopidogrel (Plavix) 75 Mg Tab 75 MG PO Q2D, TAB Dorzolamide Hcl (Trusopt Oph) 2 % Tracy 1 DROPS OP HS, #30 ML 3 Refills Furosemide (Lasix) 40 Mg Tab 40 MG PO PRN, TAB Hydralazine Hcl (Apresoline) 50 Mg Tab 75 MG PO QID, TAB Insulin Aspart (Novolog) 100 Units/Ml Inj SQ ACHS PER SLIDING SCALE Insulin Detemir (Levemir) 100 Units/Ml Inj 18 UNITS PO QPM, #30 Insulin Detemir (Levemir) 100 Units/Ml Inj 15 UNITS SC QAM Latanoprost (Xalatan 0.005% Oph Tracy) 0.005 % Tracy 1 DROP OPB HS Lovastatin (Mevacor) 40 Mg Tab 80 MG PO HS, #180 Magnesium Chloride (Slow-Mag Tab) 64 Mg Tabcr 64 MG PO DAILY, TAB Metoprolol Succinate (Toprol Xl) 100 Mg Tab 100 MG PO QAM, TAB Nitroglycerin (Nitrostat) 0.4 Mg Tab 0.4 MG UT PRN, BTL Potassium Chloride (Klor-Con M20) 20 Meq Tabcr 20 MEQ PO PRN takes with lasix Ranitidine Hcl (Zantac) 300 Mg Tab 300 MG PO QAM, TAB Triamterene/Hctz (Triamterene/Hctz 37.5-25MG) 1 Tab Tab 1 TAB PO QAM, TAB Warfarin Sod (Jantoven) 5 Mg Tab 5 MG PO D, #90 Referrals At Discharge Follow up Referrals: Reducing Salon Attendant Referral - Within 1 Week with Evaristo Motley M.D. Family Practice Referral - Within 1 Week with Bon Macias M.D. Discharge Exam Patient reports feeling well this morning prior to catheterization. The patient denies any chest pain today. He states that his chest pain had actually resolved on its own yesterday prior to receiving the nitro paste. He denies any other associated symptoms. The patient denies fevers, chills, sweats , chest pain, palpitations, claudication, cough, wheezing, shortness of breath, nausea, vomiting, abdominal pain, dysuria, hematuria, urinary retention, paralysis, weakness, acute numbness and tingling. Review of Systems: Constitutional: No chills, No fever, No sweats Eyes: No diplopia, No eye pain, No worsening of vision ENT: No hearing loss, No sore throat, No trouble swallowing Respiratory: No cough, No shortness of breath, No wheezing Cardiovascular: No chest pain, No claudication, No palpitations Abdomen: No nausea, No pain, No vomiting Musculoskeletal: No calf pain, No joint pain, No muscle pain Genitourinary - Male: No dysuria, No hematuria, No urinary retention Neurologic: + numbness/tingling (diabetic neuropathy in feet, chronic), No paralysis, No weakness Integumentary: No color change, No itch, No rash Physical Exam: General Appearance: WD/WN, no apparent distress, + obese Eyes: normal inspection, PERRL, EOMI ENT: normal ENT inspection, hearing grossly normal, pharynx normal Neck: supple, no JVD, trachea midline Respiratory/Chest: lungs clear, normal breath sounds, no respiratory distress Cardiovascular: no gallop, no murmur, + irregularly irregular Abdomen / GI: normal bowel sounds, non tender, soft Extremities: normal inspection, no calf tenderness, no pedal edema Neurologic/Psychiatric: alert, normal mood/affect, oriented x 3 Skin: normal color, warm/dry, no rash (Arabella Silva ., PA-C) Hospital Course 71 y/o male with a history of CAD S/P SONAM x 3 (2014), HLD, HTN, Permanent Atrial Fibrillation, CKD Stage III, T2DM, BPH, bladder cancer, and GERD who presents to the ED c/o intermittent chest pain x 1 week that occurs with exertion and resolved with rest. Pain had already resolved before receiving nitro paste in ED. Chest Pain, h/o CAD S/P SONAM x 3 (2014)--appears to be secondary to unstable angina. Chest pain resolved -Admitted to telemetry for observation -No acute events overnight. Pt remained in afib with HR between 70s-90s largely with a few spikes up to 120s -Cardiac enzymes negative x 3 -Cardiology consulted, appreciate recs: Likely unstable angina. Agree with trending enzymes. Recommend repeat cardiac cath -Pt taken for cardiac cath 09/29 -Lipid panel: triglycerides 149, total cholesterol 168, LDL 98, HDL 40 -Repeat HgbA1c 8.6 -Continue Plavix 75 mg Q2D -EKGs no ischemic changes HTN--stable -Continue triamterene/HCTZ 37.5/25 mg PO qd and hydralazine 75 mg PO QID HLD--stable -Continue lovastatin 40 mg PO qd Permanent a-fib--stable, rate controlled 70s-90s -Continue metoprolol succinate 100 mg PO qd and warfarin 5 mg PO qd -INR 2.5 on admission, reversed with vitamin K 10 mg PO x1 -INR 1.7 prior to cath CKD stage III--stable. Baseline creatinine 1.8 -Creatinine 1.9 on arrival -NSS 100 cc/hr -Creatinine 1.6 on 09/29 Diabetes mellitus type 2--HgbA1c on 09/29 was 8.6 -Levemir 15 units SC qam and 18 units SC qpm -Insulin sliding scale -Check BSGs q ac and qhs GERD -Zantac 300 mg PO qam DVT prophylaxis -Chemical prophylaxis held for cath procedure -SCDs Code Status -Level I, FULL RESUSCITATION STATUS Total Time Spent: Greater than 30 minutes This includes examination of the patient, discharge planning, medication reconciliation, and communication with other providers. (Arabella Silva ., PA-C) I personally interviewed the patient I agree with the above physical exam and I did perform my personal physical examination I personally reviewed all data and labs I personally reviewed Hx and discussed the case with staff I discussed the above plan with Miss Ricardo Morse Christiana Gong supervising attending General appearance: Well-developed, well-nourished, no apparent distress Head: Normocephalic, atraumatic Eyes: Normal inspection, PERRL, EOMI ENT: Normal ENT inspection, hearing grossly normal Neck: Supple, no JVD, trachea midline Respiratory/Chest: normal chest wall expansion Normal breath sounds, no respiratory distress Cardiovascular: S1/S2 normal no M/G Abdomen/GI: Normal bowel sounds, non-tender, soft Extremities/Musculoskeletal: no decrease ROM Neurological/Psych: +Disoriented to time. Alert, normal mood/affect, oriented x 2 (person and place) Skin: Normal color, warm/dry, no rash 71 years old man S/P cardiac cath Summary: 1. Severe single vessel coronary artery disease - 99% mid RCA instent restenosis - Patent mid LAD and circumflex stents. - mild to moderate proximal LAD, ostial circumflex disease and severe small ostial diagonal disease unchanged from prior. 2. Normal intracardiac filling pressure 3. Successful PCI of mid RCA instent restenosis with 2.75 x 22 Xience SONAM (post- dilated with 3.25 balloon) Total Time Spent: Greater than 30 minutes (Williams Prasad MD) Discharge Instructions Please refer to the electronic Patient Visit Report (Discharge Instructions) for additional information. (Arabella Silva ., PADeliaC) Additional Copies To Bon Macias M.D.
[2016-09-29] MEDS ORDERED: FENTANYL CITRATE INJ 50 MCG/1 ML 2 ML VIAL ONE (14:49)
[2016-09-29] MEDS ORDERED: HEPARIN SOD (PORCINE) 1000 UNIT/ML 10 ML VIAL ONE (14:49)
[2016-09-29] MEDS ORDERED: NITROGLYCERIN/D5W 100MCG/ML 20ML SYR ONE (14:49)
[2016-09-29] MEDS ORDERED: NiCARDipine HCL INJ 2.5 MG/ML 10 ML AMP ONE (14:49)
[2016-09-29] MEDS ORDERED: MIDAZOLAM HCL 1 MG/ML 2ML VIAL ONE (14:49)
[2016-09-29] MEDS ORDERED: CLOPIDOGREL BISULFATE 300 MG TAB PO ONE (16:11)
--- NOTE | 2016-09-29 16:11 | Progress Note ---
Subjective Date of Service: September 29, 2016. Subjective Pt evaluation today including: conversation w/ patient, physical exam, chart review, lab review, conversation w/ accounting policy consultant, review of inpatient medication list Problem List Medical Problems: (1) Abnormal EKG Status: Acute (2) Chest pain Status: Acute (3) Multiple fractures of ribs of right side Status: Acute Review of Systems Constitutional: No chills, No fatigue, No fever, No problem reported, No see HPI, No sweats, No weakness, No weight loss Eyes: No diplopia, No discharge, No eye pain, No problem reported, No redness, No see HPI, No worsening of vision ENT: No dental problems, No hearing loss, No nasal symptoms, No problem reported, No see HPI, No sore throat, No tinnitus, No trouble swallowing, No unusual epistaxis Respiratory: No cough, No dyspnea at rest, No dyspnea on exertion, No hemoptysis, No problem reported, No see HPI, No shortness of breath, No sputum, No wheezing Cardiac: + chest pain, No PND, No claudication, No edema, No orthopnea, No palpitations, No problem reported, No see HPI Abdomen: No GI bleeding, No constipation, No diarrhea, No nausea, No pain, No problem reported, No see HPI, No vomiting Musculoskeletal: No calf pain, No joint pain, No muscle pain, No problem reported, No see HPI, No swelling Male : No dysuria, No hematuria, No incontinence, No nocturia more than once/ night, No problem reported, No see HPI, No sexual dysfunction, No slowing stream , No urinary frequency Neurologic: No balance problems, No memory loss, No numbness/tingling, No paralysis, No problem reported, No see HPI, No vertigo, No weakness Psychiatric: No anhedonism, No anxiety, No depression symptoms, No insomnia, No problem reported, No see HPI, No substance abuse Heme: No abnormal bleeding/bruising, No clotting problems, No night sweats, No problem reported, No see HPI, No swollen lymph nodes Endo: No excessive thirst, No excessive urination, No fatigue, No problem reported, No see HPI Skin: No bleeding, No color change, No itch, No new/changing skin lesions, No problem reported, No rash, No see HPI Medications Current Inpatient Medications Medications (Trade) Dose Ordered Sig/Vince Route Start Time Stop Time Status Last Admin Dose Admin Acetaminophen (Tylenol Tab) 650 mg Q4H PRN PO 09/28/16 13:30 10/28/16 13:29 Al Hydrox/Mg Hydrox/Simethicone (Maalox Max Susp) 15 ml Q4H PRN PO 09/28/16 13:30 10/28/16 13:29 Magnesium Hydroxide (Milk Of Magnesia Susp) 30 ml Q12H PRN PO 09/28/16 13:30 10/28/16 13:29 Ondansetron HCl (Zofran Inj) 4 mg Q6H PRN IV 09/28/16 13:30 10/28/16 13:29 Nitroglycerin (Nitrostat Tab) 0.4 mg UD PRN SL 09/28/16 13:30 10/28/16 13:29 Polyethylene (Miralax Powder Packet) 17 gm DAILY PRN PO 09/28/16 13:30 10/28/16 13:29 Clopidogrel Bisulfate (plAVix TAB) 75 mg Q2D PO 09/29/16 09:00 10/29/16 08:59 Dorzolamide HCl (Trusopt 2% Oph Soln) 1 drops HS OP 09/28/16 21:00 10/28/16 20:59 09/28/16 21:03 1 DROPS Hydralazine HCl (Apresoline Tab) 75 mg QID PO 09/28/16 17:00 10/28/16 16:59 09/29/16 12:38 75 MG Latanoprost (Xalatan Oph Soln) 1 drops HS OPB 09/28/16 21:00 10/28/16 20:59 09/28/16 20:56 1 DROPS Lovastatin (Mevacor Tab) 40 mg HS PO 09/28/16 21:00 10/28/16 20:59 09/28/16 21:01 40 MG Metoprolol Succinate (Toprol Xl Tab) 100 mg QAM PO 09/29/16 09:00 10/29/16 08:59 09/29/16 07:51 100 MG Ranitidine HCl (zANTac TAB) 300 mg QAM PO 09/29/16 09:00 10/29/16 08:59 Insulin Detemir (Levemir Flexpen/ FlexTouch) 15 unit QAM SC 09/29/16 09:00 10/29/16 08:59 09/29/16 12:42 7 UNIT Insulin Detemir (Levemir Flexpen/ FlexTouch) 18 unit QPM SQ 09/28/16 21:00 10/28/16 20:59 09/28/16 21:05 18 UNIT Magnesium Chloride (Slow-Mag Tab) 64 mg DAILY PO 09/29/16 09:00 10/29/16 08:59 Potassium Chloride (Klor-Con Tab) 20 meq DAILY PRN PO 09/28/16 13:45 10/28/16 13:44 Triamterene/HCTZ (Maxzide 37.5/25 Tab) 1 tab QAM PO 09/29/16 09:00 10/29/16 08:59 09/29/16 12:38 1 TAB Miscellaneous (Iv Fluids Completed) 1 ea PRN PRN N/A 09/28/16 14:15 09/28/17 14:14 Glucose (Glucose 40% Gel) 15-30 GRAMS 15 GRAMS... UD PRN PO 09/28/16 14:15 10/28/16 14:14 Glucose (Glucose Chew Tab) 4-8 Tablets 4 Tabl... UD PRN PO 09/28/16 14:15 10/28/16 14:14 Dextrose (Dextrose 50% 50ML Syringe) 25-50ML OF 50% DW IV FOR... UD PRN IV 09/28/16 14:15 10/28/16 14:14 Glucagon (Glucagon Inj) 1 mg UD PRN SQ 09/28/16 14:15 10/28/16 14:14 Insulin Aspart SLIDING SCALE G... ACHS SC 09/28/16 16:00 10/28/16 15:59 09/29/16 12:41 2 UNITS Sodium Chloride (Nss 1000ml) 1,000 ml @ 100 mls/hr Q10H IV 09/29/16 00:00 10/29/16 00:00 09/29/16 10:33 100 MLS/HR Objective Vital Signs Date Time Temp Pulse Resp B/P Pulse Ox O2 Delivery O2 Flow Rate FiO2 09/29/16 12:17 Room Air 09/29/16 11:17 37.0 95 18 169/82 94 Room Air 09/29/16 08:00 Room Air 09/29/16 08:00 36.9 88 18 170/140 96 Room Air 158/104 09/29/16 06:20 Room Air 09/29/16 04:00 95 Room Air 09/29/16 04:00 36.8 89 150/99 95 Room Air 09/29/16 00:06 36.5 81 20 124/78 95 Room Air 09/29/16 00:00 95 Room Air 09/28/16 20:00 96 Room Air 09/28/16 19:51 36.4 86 20 160/108 96 Room Air 152/104 Physical Exam General Appearance: WD/WN, no apparent distress Eyes: normal inspection, EOMI ENT: normal ENT inspection, hearing grossly normal Neck: supple Respiratory/Chest: chest non-tender, lungs clear, normal breath sounds, no respiratory distress, no accessory muscle use Cardiovascular: regular rate, rhythm, no edema, no gallop, no JVD, no murmur Abdomen: normal bowel sounds, non tender, soft, no organomegaly Extremities: normal range of motion, non-tender, normal inspection, no pedal edema Neurologic/Psychiatric: per diem nurse II-XII nml as tested, no motor/sensory deficits, alert, normal mood/affect, oriented x 3 Skin: normal color, warm/dry, no rash Laboratory Results Last 24 Hours Test 09/28/16 16:33 09/28/16 17:07 09/28/16 20:47 09/28/16 23:07 Bedside Glucose 231 mg/dl 189 mg/dl Total Creatine Kinase 250 U/L 213 U/L Creatine Kinase MB 5.8 ng/ml 4.7 ng/ml Creatine Kinase MB Ratio 2.3 2.2 Troponin I < 0.015 ng/ml < 0.015 ng/ml Test 09/29/16 05:58 09/29/16 06:51 09/29/16 08:44 09/29/16 11:09 White Blood Count 9.01 K/uL Red Blood Count 5.43 M/uL Hemoglobin 17.2 g/dL Hematocrit 49.6 % Mean Corpuscular Volume 91.3 fL Mean Corpuscular Hemoglobin 31.7 pg Mean Corpuscular Hemoglobin Concent 34.7 g/dl RDW Standard Deviation 47.0 fL RDW Coefficient of Variation 14.0 % Platelet Count 182 K/uL Mean Platelet Volume 10.0 fL Prothrombin Time 18.3 SECONDS Prothromb Time International Ratio 1.7 Estimated Average Glucose 200 mg/dl Hemoglobin A1c 8.6 % Triglycerides Level 149 mg/dl Cholesterol Level 168 mg/dl HDL Cholesterol 40 mg/dl LDL Cholesterol, Calculated 98 mg/dl VLDL Cholesterol, Calculated 30 mg/dl Cholesterol/HDL Ratio 4.2 Bedside Glucose 239 mg/dl 202 mg/dl Sodium Level 139 mmol/L Potassium Level 3.9 mmol/L Chloride Level 102 mmol/L Carbon Dioxide Level 30 mmol/L Anion Gap 7.0 mmol/L Blood Urea Nitrogen 27 mg/dl Creatinine 1.60 mg/dl Est Creatinine Clear Calc Drug Dose 46.8 ml/min Estimated GFR () 48.8 Estimated GFR (Non- 42.1 BUN/Creatinine Ratio 16.9 Random Glucose 249 mg/dl Calcium Level 8.7 mg/dl Assessment and Plan 71 y/o male with a history of CAD S/P SONAM x 3 (2014), HLD, HTN, Permanent Atrial Fibrillation, CKD Stage III, T2DM, BPH, bladder cancer, and GERD who presents to the ED c/o intermittent chest pain x 1 week that occurs with exertion and resolved with rest. Pain had already resolved before receiving nitro paste in ED. Chest Pain, h/o CAD S/P SONAM x 3 (2014)--appears to be secondary to unstable angina. going for cardiac cath today 09/29 Cardiac enzymes negative x 3 -Lipid panel: triglycerides 149, total cholesterol 168, LDL 98, HDL 40 -Repeat HgbA1c 8.6 -Continue Plavix 75 mg Q2D -EKGs no ischemic changes CKD stage III--stable. Baseline creatinine 1.8 -Creatinine 1.9 on arrival -NSS 100 cc/hr -Creatinine 1.6 on 09/29 - will do mucomyst 1200mg po bid X 6 doses HTN--stable -Continue triamterene/HCTZ 37.5/25 mg PO qd and hydralazine 75 mg PO QID HLD--stable -Continue lovastatin 40 mg PO qd Permanent a-fib--stable, rate controlled 70s-90s -Continue metoprolol succinate 100 mg PO qd and warfarin 5 mg PO qd -INR 2.5 on admission, reversed with vitamin K 10 mg PO x1 -INR 1.7 prior to cath - will restart coumadin today and recheck INR in am Diabetes mellitus type 2--HgbA1c on 09/29 was 8.6 -Levemir 15 units SC qam and 18 units SC qpm -Insulin sliding scale -Check BSGs q ac and qhs GERD -Zantac 300 mg PO qam DVT prophylaxis -Chemical prophylaxis held for cath procedure -SCDs
[2016-09-29] MEDS ORDERED: SODIUM CHLORIDE 0.9% 1000ML 1,000 ML IV SCH ×2 (16:15→16:45)
[2016-09-29] MEDS ORDERED: ACETAMINOPHEN 325 MG TAB PO PRN (16:45)
--- NOTE | 2016-09-29 16:46 | Procedure Note ---
Post-Mod Sedation Assessment General Date of Moderate Sedation September 29, 2016. Vital Signs: Vital Signs Past 12 Hours Date Time Temp Pulse Resp B/P Pulse Ox O2 Delivery O2 Flow Rate FiO2 09/29/16 16:25 89 16 148/86 95 Room Air 09/29/16 16:11 105 16 142/83 95 Nasal Cannula 4 09/29/16 12:17 Room Air 09/29/16 11:17 37.0 95 18 169/82 94 Room Air 09/29/16 08:00 Room Air 09/29/16 08:00 36.9 88 18 170/140 96 Room Air 158/104 09/29/16 06:20 Room Air Review - Discharge Criteria Vital Signs Stable: Yes Alert/Oriented/Conversant: Yes Returned to Baseline Mental St: Yes Nausea Absent/Minimal: Yes Pain/Discomfort/Absent/Minimal: Yes Normal/Baseline Respirations: Yes Active Bleeding?: No Pt Received D/C Instructions: N/A Prescriptions Given: None Specific Proced. D/C Criteria Distal Pulses Present (Cardiac: Yes Groin site assessed-Card Cath: N/A Voided Prior To Discharge: N/A Discharged Patients Adult Escort/Transportation: Yes
--- NOTE | 2016-09-29 16:46 | Procedure Note ---
Pre-Mod Sedation Assessment General Date of Moderate Sedation: September 29, 2016. Vital Signs: Vital Signs Past 12 Hours Date Time Temp Pulse Resp B/P Pulse Ox O2 Delivery O2 Flow Rate FiO2 09/29/16 16:25 89 16 148/86 95 Room Air 09/29/16 16:11 105 16 142/83 95 Nasal Cannula 4 09/29/16 12:17 Room Air 09/29/16 11:17 37.0 95 18 169/82 94 Room Air 09/29/16 08:00 Room Air 09/29/16 08:00 36.9 88 18 170/140 96 Room Air 158/104 09/29/16 06:20 Room Air Review Cardiovascular: regular rate, rhythm, no edema, + irregularly irregular Abdomen: normal bowel sounds, non tender, soft Lungs: lungs clear, normal breath sounds, no respiratory distress Airway Class: II Pre-Sedation Airway Assessment Oral Cavity: WNL Able to Visualize Vocal Cords: No Short Thick Neck: No Hx of Sleep Apnea: No Smoking Status: Never Smoker Mallampati Classification: Class II ASA Classification: Class II Procedure Planning Contraindications-for Mod Sed: None Yes Notes The planned sedation has been discussed with the patient and consent obtained. I have identified the patient, determined the appropriateness of sedation and have assessed the patient immediately prior to the procedure. All medicine(s) and interventions are by my order.
[2016-09-29] MEDS ORDERED: ACETYLCYSTEINE 1200 MG/6 ML SYR PO SCH (17:00)
[2016-09-29] MEDS ORDERED: WARFARIN SOD 5 MG TAB PO SCH (17:00)
--- NOTE | 2016-09-29 17:08 | Cardiac Catheterization ---
Procedure Note Procedure Date September 29, 2016. Pre-Procedure Diagnosis Acute Coronary Syndrome AUC Score 7 Post-Procedure Diagnosis Severe CAD, Successful PCI, Normal Intracardiac Pressures Procedure(s) Performed Coronary Angiography, Left Heart Cath, Drug Eluting Stent Stock Counter Dr. 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 LAD - Mildly calcified, 30-40% diffuse proximal disease; widely patent mid- segment stents; 30% stenosis post stent with distal vessel luminal irregularities. 70% ostial and proximal small 1st diagonal disease. Circumflex - 40% ostial stenosis; Widely patent mid segment stent; distal luminal irregularities RCA - Dominant, 99% focal in-stent restenosis in mid segment stent; distal luminal irregularities. LVEDP - 14 -- PCI -- Antithrombotic therapy: Heparin, Clopidogrel Procedure: RCA cannulated with JR4 guide BMW wire passed across lesion into distal vessel Mid RCA lesion predilated with 2.0 compliant balloon 2.75 x 22 Xience SONAM completely overlapped prior stent Stent post-dilated with 3.25 noncompliant balloon IC vasodilators administered for spasm Post procedure BLADE 3 flow, stent well expanded with minimal residual stenosis and no apparent cardiac complications. Arterial Closure: TR Band Summary: 1. Severe single vessel coronary artery disease - 99% mid RCA instent restenosis - Patent mid LAD and circumflex stents. - mild to moderate proximal LAD, ostial circumflex disease and severe small ostial diagonal disease unchanged from prior. 2. Normal intracardiac filling pressure 3. 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 Continue statin, and ASCVD risk factor modification Consult cardiac Rehab Hemodynamics Rest Ao: 135/84/115 Final Ao: 154/84/115 LV: 128/10/14 Recommendations PCI without planned CABG Specimens None Radiation Exposure (mGy) 2373 Contrast (mls) 130 Fluids (cc crystalloids) 90 Drains none Anesthesia moderate (15:30 - 16:11) Procedural Complication(s) None Disposition PCU ACC Data Cardiac Status Clinical evaluation leading to the procedure CAD Presntation: Unstable angina Anginal Classification: CCS IV Heart Failure: No, NYHA Class: CCS I Cardiogenic Shock w/in 24Hrs: No Cardiac Arrest w/in 24Hrs: No Imaging studies past 6 months: No Stress studies past 6 months: No Standard Exercise Stress Test: No Stress Echocardiogram: No Stress Testing w/SPECT MPI: No Cardiac CTA: No Coronary Anatomy Dominant: Right LAD (% Stenosis): Proximal (30) D1 (% Stenosis): Ostial (80) Circumflex (% Stenosis): Ostial (40) R PDA (% Stenosis): Mid (99) Diagnostic Physician's Name: Bon Long MD Status: Urgent Closure Device Percutaneous Entry Location: Radial Closure Device: Radial Band Recommendations: PCI without planned CABG Lesion Segment Name: RCA Culprit Artery: Yes Stenosis Prior to Rx (%): 99 Chronic Total Occlusion: No IVUS: No FFR: No Pre-Procedure BLADE Flow: 3 Previously Treated Lesion: Yes Treated Lesion: Timeframe: 1-2 years Treated with Stent: Yes In-Stent Restenosis: Yes In-Stent Thrombosis: No Stent Type: SONAM Lesion Complexity: Non-High/Non-C Lesion Length (mm): 12 Thrombus Present: No Bifurcation Lesion: No Guidewire Across Lesion: Yes Guidewire: Stenosis Post-Procedure (%): 0 Post-Procedure BLADE Flow: 3 Device(s) Deployed: Yes
[2016-09-29] MEDS: ACETYLCYSTEINE 600 MG CAP PO SCH ×2 (17:35→20:56)
[2016-09-29] MEDS: LATANOPROST 0.005% OP SOLN 2.5 ML BTL OPB SCH (20:50)
[2016-09-29] MEDS: LOVASTATIN 20 MG TAB PO SCH (20:55)
[2016-09-29] MEDS: DORZOLAMIDE HCL 2% OPH SOLN 10 ML BTL OP SCH (20:57)
[2016-09-29] MEDS: INSULIN DETEMIR FLEXPEN/FLEX TOUCH 100 UNITS/ML 3ML SQ SCH (21:04)
[2016-09-30] VITALS: O2SAT 94
[2016-09-30 04:00] VITALS: BP 158/89; PULSE 92; TEMP 36.6; O2SAT 95
[2016-09-30 07:22] LABS: BASO % 1.1 %; BASO ABS # 0.07 K/uL (0-0.2); COMPLETE YES; EOS % 3.2 %; HEMATOCRIT 48.7 % (42-52); IG% 0.2 %; LYMPH % 13.5 %; LYMPH ABS # 0.89 K/uL (1.2-3.4); MEAN CELL VOLUME 90.5 fL (80-100); MEAN CORPUSCULAR HEMOGLOBIN 31.6 pg (25-34); MEAN CORPUSCULAR HGB CONC 34.9 g/dl (32-36); MEAN PLATELET VOLUME 9.5 fL (7.4-10.4); MONO % 10.5 %; NEUT % 71.5 %; PLATELET COUNT 173 K/uL (130-400); RED BLOOD COUNT 5.38 M/uL (4.7-6.1)
[2016-09-30 07:30] LABS: INR 1.2 (0.9-1.1); PROTHROMBIN TIME (PATIENT) 12.5 SECONDS (9.0-12.0)
[2016-09-30] MEDS: INSULIN DETEMIR FLEXPEN/FLEX TOUCH 100 UNITS/ML 3ML SC SCH (07:43)
[2016-09-30] MEDS: INSULIN ASPART 100 UNITS/ML 3 ML PEN SC SCH (07:43)
[2016-09-30] MEDS: ACETYLCYSTEINE 600 MG CAP PO SCH (07:47)
[2016-09-30] MEDS: METOPROLOL SUCC 50MG EXT REL TAB PO SCH (07:47)
[2016-09-30] MEDS: TRIAMTERENE/HCTZ 37.5/25MG TAB PO SCH (07:48)
[2016-09-30 07:53] LABS: BUN/CREATININE RATIO 14.6 (10-20); CALCIUM 8.7 mg/dl (8.5-10.1); CREATININE 1.6 mg/dl (0.60-1.40); POTASSIUM 3.7 mmol/L (3.5-5.1)
[2016-09-30 07:56] VITALS: BP 153/100; PULSE 87; TEMP 37.1; O2SAT 93
[2016-09-30 08:01] LABS: PHOSPHORUS 2.4 mg/dl (2.5-4.9)
[2016-09-30] MEDS ORDERED: ASPIRIN 81 MG ECTAB PO SCH (09:00)
--- NOTE | 2016-09-30 09:23 | Cardiology Follow-Up ---
Subjective Subjective Date of Service: September 30, 2016. Pt evaluation today including: conversation w/ patient, physical exam, chart review, lab review, review of studies, review of inpatient medication list Additional Details: Feeling well. No chest pain overnight. No new complaints. Tele reviewed -- persistent AF, primarily in 90-110s Problem List Medical Problems: (1) Abnormal EKG Status: Acute (2) Chest pain Status: Acute (3) Multiple fractures of ribs of right side Status: Acute Review of Systems Constitutional: No fever ENT: No hearing loss Respiratory: No cough Cardiac: No chest pain, No edema Abdomen: No pain Heme: No abnormal bleeding/bruising Endo: + fatigue Skin: No rash Objective Vital Signs Last Vital Signs Documentation Date Time Temp Pulse Resp B/P Pulse Ox O2 Delivery O2 Flow Rate FiO2 09/30/16 07:56 37.1 87 19 153/100 93 Room Air 09/29/16 16:11 4 Physical Exam: General Appearance: no apparent distress ENT: hearing grossly normal Neck: supple Respiratory/Chest: lungs clear, normal breath sounds, no respiratory distress Cardiovascular: no edema, + irregularly irregular Abdomen: non tender, soft Extremities: no pedal edema, + pertinent finding (right radial artery pulse intact, no significant ecchymosis. intact distal pulses/sensation) Neurologic/Psychiatric: alert, normal mood/affect Skin: warm/dry, no rash Lymphatic: no adenopathy Assessment and Plan 1. Unstable angina -- s/p PCI with SONAM to 99% RCA ISR 2. CAD s/p prior multivessel stenting in 2014 3. Permanent AF on anticoagulation -- restarted on coumadin last night 4. CKD -- SCr stable post cath Patient feeling well this AM with no recurrent chest pain. No access site complications Persistent AF reasonably rate-controlled on current regimen. -- From a cardiac standpoint OK for discharge today. -- Continue triple therapy with ASA/Plavix and coumadin for next month --> after 1 month can switch back to Plavix and coumadin -- continue current metoprolol -- continue current statin. -- Follow with Cardiology in 2-3 weeks. -- INR follow-up early next week. Medications: Current Inpatient Medications Medications (Trade) Dose Ordered Sig/Vince Route Start Time Stop Time Status Last Admin Dose Admin Acetaminophen (Tylenol Tab) 650 mg Q4H PRN PO 09/28/16 13:30 10/28/16 13:29 Al Hydrox/Mg Hydrox/Simethicone (Maalox Max Susp) 15 ml Q4H PRN PO 09/28/16 13:30 10/28/16 13:29 Magnesium Hydroxide (Milk Of Magnesia Susp) 30 ml Q12H PRN PO 09/28/16 13:30 10/28/16 13:29 Ondansetron HCl (Zofran Inj) 4 mg Q6H PRN IV 09/28/16 13:30 10/28/16 13:29 Nitroglycerin (Nitrostat Tab) 0.4 mg UD PRN SL 09/28/16 13:30 10/28/16 13:29 Polyethylene (Miralax Powder Packet) 17 gm DAILY PRN PO 09/28/16 13:30 10/28/16 13:29 Clopidogrel Bisulfate (plAVix TAB) 75 mg Q2D PO 09/29/16 09:00 10/29/16 08:59 Dorzolamide HCl (Trusopt 2% Oph Soln) 1 drops HS OP 09/28/16 21:00 10/28/16 20:59 09/29/16 20:57 1 DROPS Hydralazine HCl (Apresoline Tab) 75 mg QID PO 09/28/16 17:00 10/28/16 16:59 09/30/16 07:48 75 MG Latanoprost (Xalatan Oph Soln) 1 drops HS OPB 09/28/16 21:00 10/28/16 20:59 09/29/16 20:50 1 DROPS Lovastatin (Mevacor Tab) 40 mg HS PO 09/28/16 21:00 10/28/16 20:59 09/29/16 20:55 40 MG Metoprolol Succinate (Toprol Xl Tab) 100 mg QAM PO 09/29/16 09:00 10/29/16 08:59 09/30/16 07:47 100 MG Ranitidine HCl (zANTac TAB) 300 mg QAM PO 09/29/16 09:00 10/29/16 08:59 09/29/16 16:51 300 MG Insulin Detemir (Levemir Flexpen/ FlexTouch) 15 unit QAM SC 09/29/16 09:00 10/29/16 08:59 09/30/16 07:43 15 UNIT Insulin Detemir (Levemir Flexpen/ FlexTouch) 18 unit QPM SQ 09/28/16 21:00 10/28/16 20:59 09/29/16 21:04 18 UNIT Magnesium Chloride (Slow-Mag Tab) 64 mg DAILY PO 09/29/16 09:00 10/29/16 08:59 09/29/16 16:52 64 MG Potassium Chloride (Klor-Con Tab) 20 meq DAILY PRN PO 09/28/16 13:45 10/28/16 13:44 Triamterene/HCTZ (Maxzide 37.5/25 Tab) 1 tab QAM PO 09/29/16 09:00 10/29/16 08:59 09/30/16 07:48 1 TAB Miscellaneous (Iv Fluids Completed) 1 ea PRN PRN N/A 09/28/16 14:15 09/28/17 14:14 Glucose (Glucose 40% Gel) 15-30 GRAMS 15 GRAMS... UD PRN PO 09/28/16 14:15 10/28/16 14:14 Glucose (Glucose Chew Tab) 4-8 Tablets 4 Tabl... UD PRN PO 09/28/16 14:15 10/28/16 14:14 Dextrose (Dextrose 50% 50ML Syringe) 25-50ML OF 50% DW IV FOR... UD PRN IV 09/28/16 14:15 10/28/16 14:14 Glucagon (Glucagon Inj) 1 mg UD PRN SQ 09/28/16 14:15 10/28/16 14:14 Insulin Aspart (novoLOG ASPART) SLIDING SCALE G... ACHS SC 09/28/16 16:00 10/28/16 15:59 09/30/16 07:43 6 UNITS Warfarin Sodium (Coumadin Tab) 5 mg DAILY@16 PO 09/29/16 17:00 10/29/16 16:59 09/29/16 16:51 5 MG Acetylcysteine (Acetylcysteine Cap) 1,200 mg BID PO 09/29/16 16:45 10/01/16 21:01 09/30/16 07:47 1,200 MG Aspirin (Ecotrin Tab) 81 mg QAM PO 09/30/16 09:00 10/30/16 08:59 09/30/16 07:48 81 MG Lab Results: 09/30/16 07:00 Red Blood Count 5.38, Mean Corpuscular Volume 90.5, Mean Corpuscular Hemoglobin 31.6, Mean Corpuscular Hemoglobin Concent 34.9, Mean Platelet Volume 9.5, Neutrophils (%) (Auto) 71.5, Lymphocytes (%) (Auto) 13.5, Monocytes (%) (Auto) 10.5, Eosinophils (%) (Auto) 3.2, Basophils (%) (Auto) 1.1, Neutrophils # (Auto ) 4.73, Lymphocytes # (Auto) 0.89, Monocytes # (Auto) 0.69, Eosinophils # (Auto ) 0.21, Basophils # (Auto) 0.07 09/30/16 07:00 Test 09/30/16 06:42 09/30/16 07:00 Bedside Glucose 180 mg/dl (70-99) White Blood Count 6.60 K/uL (4.8-10.8) Red Blood Count 5.38 M/uL (4.7-6.1) Hemoglobin 17.0 g/dL (14.0-18.0) Hematocrit 48.7 % (42-52) Mean Corpuscular Volume 90.5 fL (80-100) Mean Corpuscular Hemoglobin 31.6 pg (25-34) Mean Corpuscular Hemoglobin Concent 34.9 g/dl (32-36) Platelet Count 173 K/uL (130-400) Mean Platelet Volume 9.5 fL (7.4-10.4) Neutrophils (%) (Auto) 71.5 % Lymphocytes (%) (Auto) 13.5 % Monocytes (%) (Auto) 10.5 % Eosinophils (%) (Auto) 3.2 % Basophils (%) (Auto) 1.1 % Neutrophils # (Auto) 4.73 K/uL (1.4-6.5) Lymphocytes # (Auto) 0.89 K/uL (1.2-3.4) Monocytes # (Auto) 0.69 K/uL (0.11-0.59) Eosinophils # (Auto) 0.21 K/uL (0-0.5) Basophils # (Auto) 0.07 K/uL (0-0.2) RDW Standard Deviation 45.0 fL (36.4-46.3) RDW Coefficient of Variation 13.7 % (11.5-14.5) Immature Granulocyte % (Auto) 0.2 % Immature Granulocyte # (Auto) 0.01 K/uL (0.00-0.02) Prothrombin Time 12.5 SECONDS (9.0-12.0) Prothromb Time International Ratio 1.2 (0.9-1.1) Anion Gap 7.0 mmol/L (3-11) Est Creatinine Clear Calc Drug Dose 46.5 ml/min Estimated GFR () 48.8 Estimated GFR (Non- 42.1 BUN/Creatinine Ratio 14.6 (10-20) Calcium Level 8.7 mg/dl (8.5-10.1) Phosphorus Level 2.4 mg/dl (2.5-4.9) Magnesium Level 2.0 mg/dl (1.8-2.4) Total Bilirubin 1.3 mg/dl (0.2-1) Aspartate Amino Transf (AST/SGOT) 17 U/L (15-37) Alanine Aminotransferase (ALT/SGPT) 25 U/L (12-78) Alkaline Phosphatase 91 U/L (45-117) Total Protein 6.8 gm/dl (6.4-8.2) Albumin 3.4 gm/dl (3.4-5.0) Globulin 3.4 gm/dl (2.5-4.0) Albumin/Globulin Ratio 1.0 (0.9-2)
[2016-09-30 10:52] VITALS: BP 153/100; PULSE 87; TEMP 37.1; O2SAT 93
--- NOTE | 2016-09-30 14:12 | Discharge Summary ---
Discharge Summary Date of Service September 30, 2016. Discharge Summary Admission Date: September 29, 2016 at 18:39 Discharge Date: September 29, 2016 Discharge Disposition: Home Principal Diagnosis: unstable angina Immunizations: Have You Had Influenza Vaccine: N/A History of Tetanus Vaccine?: Yes History of Pneumococcal: No History of Hepatitis B Vaccine: No Hospital Course Miss Silva note has been signed after addendum patient had his cath yesterday will be discharged today Total Time Spent: Greater than 30 minutes This includes examination of the patient, discharge planning, medication reconciliation, and communication with other providers. Discharge Instructions Please refer to the electronic Patient Visit Report (Discharge Instructions) for additional information.
== END 2016-09-30 11:00 | disposition home or self-care (01) | DRG 247 ==
LOC: ENRESERVDT → ENRESERVTM → C.EDB 10:49 → C.2E 13:31 → OBSVTOIN 09-29 18:39
PROVIDERS: ADMIT Internal Medicine; ATTEND Internal Medicine
PROC: B2151ZZ Fluoroscopy of Left Heart using Low Osmolar Contrast (ICD-10-PCS; principal; 2016-09-29 14:28)
PROC: 4A023N7 Measurement of Cardiac Sampling and Pressure, Left Heart, Percutaneous Approach (ICD-10-PCS; principal; 2016-09-29 14:28)
PROC: 027034Z Dilation of Coronary Artery, One Artery with Drug-eluting Intraluminal Device, Percutaneous Approach (ICD-10-PCS; principal; 2016-09-29 14:28)
PROC: 02703ZZ Dilation of Coronary Artery, One Artery, Percutaneous Approach (ICD-10-PCS; principal; 2016-09-29 14:28)
DX: I20.0 Unstable angina (principal); N18.3 Chronic kidney disease, stage 3 (moderate); I12.9 Hypertensive chronic kidney disease with stage 1 through stage 4 chronic kidney disease, or unspecified chronic kidney disease; E11.9 Type 2 diabetes mellitus without complications; I48.91 Unspecified atrial fibrillation; K21.9 Gastro-esophageal reflux disease without esophagitis; Z79.4 Long term (current) use of insulin; Z79.01 Long term (current) use of anticoagulants

== ENCOUNTER → 2016-10-02 | Outpatient (CLI) | payer OTHER ==
[~2016-10-02] MED LIST changes: +ASPI81TA28 PO; -HYDR-5688 PO; -MAGNTAB4 PO; +SLWMEC PO
[2016-10-02 13:17] LABS: BLOOD UREA NITROGEN 35 mg/dl (7-18); BUN/CREATININE RATIO 17.5 (10-20); CALCIUM 9.3 mg/dl (8.5-10.1); CARBON DIOXIDE 29 mmol/L (21-32); CHLORIDE 97 mmol/L (98-107); GLUCOSE 543 mg/dl (70-99); POTASSIUM 4.5 mmol/L (3.5-5.1); SODIUM 134 mmol/L (136-145)
[2016-10-02 14:20] LABS: BETA-HYDROXYBUTYRATE 1.17 mg/dL (0.2-2.81)
== END | disposition home or self-care (01) ==
LOC: C.LABBFT 10:30
PROVIDERS: ATTEND Internal Medicine
DX: N28.9 Disorder of kidney and ureter, unspecified (principal)

== ENCOUNTER 2016-10-03 12:41 | Emergency (ER) | payer OTHER ==
[~2016-10-03] VITALS: Ht 172.7 cm; Wt 99.4 kg
[~2016-10-03 12:41] MED LIST changes: -ASPI81TA28 PO
[2016-10-03 12:43] VITALS: TEMP 36.4; Ht 172.7 cm; Wt 99.4 kg
[2016-10-03] MEDS ORDERED: ONDANSETRON INJ 2 MG/ML 2 ML VIAL IV STA (12:55)
--- NOTE | 2016-10-03 13:04 | EMERGENCY ROOM VISIT NOTE ---
History Report prepared by Himanshu: Yanni Vizcarra Under the Supervision of: Dr. Davis Dickens D.O. First contact with patient: 12:49 Chief Complaint: CHEST PAIN Stated Complaint: CHEST PAIN, DIZZY Nursing Triage Summary: pt reports chest pain started at 1130 this am [place], pt had 1 stent placed on sunday here by dr toro, called [facility] office told to come to ed for eval took 1 baby asa and 2 nitro pior to arrival nitro helped pain History of Present Illness The patient is a 71 year old male who presents to the Emergency Room with complaints of constant sternal chest pain beginning 90 minutes prior to arrival. He states that on occasion he experiences a sharp pain. The patient was seen in the ED on September 30 for chest pain. He had stents put in by Dr. Toro on Sunday. A heart catheterization was also done at this time. Today he experienced a headache and then the chest pain began. He also notes nausea and dizziness. The patient describes the headache as a pressure sensation. The patient has been experiencing trouble breathing on occasion but denies shortness of breath at this time. The patient's called Dr. Motley's office this morning and talked with the nurse. She advised he take glycerin and come to the ED. He did take 2 nitro before arriving and is currently on Plavix. He denies abdominal pain. 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 A total of 10 systems reviewed and were otherwise negative. 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 (4) Chronic Kidney Disease, Stage Iii (Moderate) (5) Diab Marya Nne Wo Comp Type Ii Or Nos/Not Uncontrolled (6) Hyperglycemia (7) Hypertension Nos (8) New onset a-fib Surgical Problems: (1) H/O heart artery stent (2) S/P cardiac catheterization Family History Cancer Diabetes mellitus Heart disease Hypertension Kidney disease Kidney stones Lung disease Social History Smoking Status: Former Smoker Alcohol Use: none Drug Use: none Marital Status: Housing Status: lives with family Occupation Status: retired Current/Historical Medications Scheduled Aspirin (Aspirin Ec), 81 MG PO DAILY Cholecalciferol (Vitamin D3), 2,000 UNITS PO QAM Clopidogrel (Plavix), 75 MG PO DAILY Dorzolamide Hcl (Trusopt Oph), 1 DROPS OP HS Furosemide (Lasix), 40 MG PO PRN Hydralazine Hcl (Apresoline), 75 MG PO QID Insulin Aspart (Novolog), SQ ACHS Insulin Detemir (Levemir), 18 UNITS PO QPM Insulin Detemir (Levemir), 15 UNITS SC QAM Latanoprost (Xalatan 0.005% Oph Tracy), 1 DROP OPB HS Lovastatin (Mevacor), 40 MG PO HS Magnesium Chloride (Slow-Mag Tab), 64 MG PO DAILY Metoprolol Succinate (Toprol Xl), 100 MG PO QAM Nitroglycerin (Nitrostat), 0.4 MG UT PRN Potassium Chloride (Klor-Con M20), 20 MEQ PO PRN Ranitidine Hcl (Zantac), 300 MG PO QAM Triamterene/Hctz (Triamterene/Hctz 37.5-25MG), 1 TAB PO QAM Warfarin Sod (Jantoven), 5 MG PO DAILY Allergies Coded Allergies: Penicillins (Verified Allergy, Severe, FACIAL SWELLING AND RASH, 09/28/16) Amoxicillin (Verified Allergy, Intermediate, RASH, 09/28/16) Clavulanic Acid (Verified Allergy, Intermediate, RASH, 09/28/16) Azithromycin (Unverified Allergy, Unknown, per nephro note, 09/28/16) Cholestyramine (Unverified Allergy, Unknown, per nephro note, 09/28/16) Niacin (Unverified Allergy, Unknown, per nephro note, 09/28/16) Phenylephrine (Unverified Allergy, Unknown, per nephro note, 09/28/16) Statins (Verified Allergy, Unknown, JOINT STIFFNESS AND PAIN, 09/28/16) Physical Exam Vital Signs Date Time Temp Pulse Resp B/P Pulse Ox O2 Delivery O2 Flow Rate FiO2 10/03/16 16:45 86 18 134/85 97 Room Air 10/03/16 14:42 79 16 138/96 97 Room Air 10/03/16 13:18 77 16 141/91 97 Room Air 10/03/16 13:18 97 Room Air 10/03/16 13:18 97 Room Air 10/03/16 12:43 36.4 70 18 154/93 96 Room Air Physical Exam GENERAL: Patient is awake, alert, and in no acute distress. Patient is resting comfortably and showing no signs of anxiety EYES: The conjunctivae are clear. The pupils are round and reactive. EARS, NOSE, MOUTH AND THROAT: The nose is without any evidence of any deformity. Mucous membranes are moist tongue is midline NECK: The neck is nontender and supple. RESPIRATORY: Normal respiratory effort is noted there is no evidence of wheezing rhonchi or rales CARDIOVASCULAR: Regular rate and irregular rhythm noted there no murmurs rubs or gallops normal S1 normal S2 GASTROINTESTINAL: The abdomen is soft. Bowel sounds are present in all quadrants. Abdomen is nontender MUSCULOSKELETAL/EXTREMITIES: There is no evidence of gross deformity full range of motion is noted in the hips and shoulders SKIN: There is no obvious evidence of any rash. There are no petechiae, pallor or cyanosis noted. NEUROLOGIC: Patient is awake alert and oriented x3 Medical Decision & Procedures ER Provider Diagnostic Interpretation: Radiology results as stated below per my review and radiologist interpretation: HEAD CT NONCONTRAST CT DOSE: 537.48 mGy.cm HISTORY: Mental status change RAYO TECHNIQUE: Multiaxial CT images of the head were performed without the use of intravenous contrast. Comparison: 03/05/2015 Findings: The paranasal sinuses and mastoid air cells are clear. The calvarium and skull base are intact. The ventricles and sulci are within normal limits. There is no mass, hematoma, midline shift, or acute infarct. Impression: No acute intracranial abnormality. Electronically signed by: Laci Fried M.D. 10/03/2016 1:38 PM Dictated Date/Time: 10/03/2016 1:36 PM SINGLE VIEW CHEST CLINICAL HISTORY: Atypical chest pain. Dizziness. FINDINGS: An AP, portable, upright chest radiograph is compared to study dated 09/28/2016 and correlated with chest CT dated 09/15/2013. The examination is degraded by portable technique and patient rotation. The heart is enlarged and there is atherosclerotic calcification of the thoracic aorta. The pulmonary vasculature is noncongested. Mild chronic elevation of the right hemidiaphragm is unchanged. No airspace consolidation, large pleural effusion, or pneumothorax is seen. The skeletal structures are osteopenic. The bony thorax is grossly intact. IMPRESSION: Cardiomegaly with no acute cardiopulmonary abnormality. Electronically signed by: Barney Evangelista M.D. 10/03/2016 1:08 PM Dictated Date/Time: 10/03/2016 1:07 PM Laboratory Results 10/03/16 13:10 Red Blood Count 5.52, Mean Corpuscular Volume 89.1, Mean Corpuscular Hemoglobin 31.9, Mean Corpuscular Hemoglobin Concent 35.8, Mean Platelet Volume 9.7, Neutrophils (%) (Auto) 65.8, Lymphocytes (%) (Auto) 18.1, Monocytes (%) (Auto) 12.0, Eosinophils (%) (Auto) 3.2, Basophils (%) (Auto) 0.8, Neutrophils # (Auto ) 4.99, Lymphocytes # (Auto) 1.37, Monocytes # (Auto) 0.91, Eosinophils # (Auto ) 0.24, Basophils # (Auto) 0.06 10/03/16 13:10 Test 10/03/16 13:10 10/03/16 16:00 White Blood Count 7.58 K/uL (4.8-10.8) Red Blood Count 5.52 M/uL (4.7-6.1) Hemoglobin 17.6 g/dL (14.0-18.0) Hematocrit 49.2 % (42-52) Mean Corpuscular Volume 89.1 fL (80-100) Mean Corpuscular Hemoglobin 31.9 pg (25-34) Mean Corpuscular Hemoglobin Concent 35.8 g/dl (32-36) Platelet Count 196 K/uL (130-400) Mean Platelet Volume 9.7 fL (7.4-10.4) Neutrophils (%) (Auto) 65.8 % Lymphocytes (%) (Auto) 18.1 % Monocytes (%) (Auto) 12.0 % Eosinophils (%) (Auto) 3.2 % Basophils (%) (Auto) 0.8 % Neutrophils # (Auto) 4.99 K/uL (1.4-6.5) Lymphocytes # (Auto) 1.37 K/uL (1.2-3.4) Monocytes # (Auto) 0.91 K/uL (0.11-0.59) Eosinophils # (Auto) 0.24 K/uL (0-0.5) Basophils # (Auto) 0.06 K/uL (0-0.2) RDW Standard Deviation 44.0 fL (36.4-46.3) RDW Coefficient of Variation 13.4 % (11.5-14.5) Immature Granulocyte % (Auto) 0.1 % Immature Granulocyte # (Auto) 0.01 K/uL (0.00-0.02) Prothrombin Time 13.3 SECONDS (9.0-12.0) Prothromb Time International Ratio 1.2 (0.9-1.1) Activated Partial Thromboplast Time 27.8 SECONDS (21.0-31.0) Partial Thromboplastin Ratio 1.1 Anion Gap 7.0 mmol/L (3-11) Est Creatinine Clear Calc Drug Dose 47.0 ml/min Estimated GFR () 48.8 Estimated GFR (Non- 42.1 BUN/Creatinine Ratio 17.1 (10-20) Calcium Level 8.8 mg/dl (8.5-10.1) Total Bilirubin 0.6 mg/dl (0.2-1) Direct Bilirubin 0.1 mg/dl (0-0.2) Aspartate Amino Transf (AST/SGOT) 23 U/L (15-37) Alanine Aminotransferase (ALT/SGPT) 33 U/L (12-78) Alkaline Phosphatase 114 U/L (45-117) Total Creatine Kinase 225 U/L (39-308) Creatine Kinase MB 8.9 ng/ml (0.5-3.6) Creatine Kinase MB Ratio 4.0 (0-3.0) Total Protein 7.4 gm/dl (6.4-8.2) Albumin 3.7 gm/dl (3.4-5.0) Lipase 291 U/L (73-393) Troponin I 0.087 ng/ml (0-0.045) Laboratory results per my review. ECG Indication: chest pain Rate (beats per minute): 86 Rhythm: atrial fibrillation Findings: nonspecific-ST abn (Inferior and Lateral), no ectopy Change: no significant change (from September 30, 2016) Change: 2nd ECG: Tachycardic, rate of 128, PAC noted, increased rate and increased St segment abnormalities when compared to 09/30/16. ED Course 1252: The patient was evaluated in room B10. A complete history and physical examination were performed. 1255: Zofran Inj 4 mg IV. 1405: I informed the patient that I will speak with Dr. Toro about his symptoms. 1424: I spoke with Dr. Ethan Hurd about the patient. He recommends a 3 hour troponin and making decision based on any dynamic changes. 1736: I reevaluated the patient and he is feeling better. 1740: I spoke with Dr. Ethan Hurd. We discussed the patient's repeat troponin. 1744: Upon reevaluation, the patient is hemodynamically stable. I discussed the results and treatment plan with him. He verbalized agreement of the treatment plan. He was discharged home. Medical Decision Differential diagnosis: Etiologies such as cardiac ischemia, aortic dissection, pulmonary embolism, pneumonia, pneumothorax, musculoskeletal, infections, pericarditis, myocarditis , esophageal rupture, gastrointestinal, as well as others were entertained. Nursing notes reviewed. The patient's previous electronic medical records reviewed. The patient is a 71-year-old male who presented to the emergency department for an evaluation of chest pain dizziness and headache. The patient recently was seen in our facility for chest discomfort and had acute coronary syndrome. He had a cardiac catheterization by Dr. Toro and at that time had stenting. The patient has been feeling fine until today. The patient was found have a mild elevation in his troponin. I discussed the patient's laboratory and radiographic studies with him. At this time he has no pain. I discussed his case with his primary tire curer. He is recommended doing a three hour troponin while the patient is in the emergency department. The patient's EKG was repeated with no significant changes noted. The patient's troponin did not appear to change. I do not feel this represents a dynamic process rather I feel represents the consequences of his recent cardiac catheterization. Given the patient's lack of symptoms at this time I feel that he can safely follow up as an outpatient. I discussed his case again with his primary bogger operator and at this time I'm recommending that he rest and avoid any strenuous activity. He was encouraged to continue all medications as prescribed. He was also encouraged to return to the emergency department immediately if symptoms change worsen the need arises. Consults Time Called: 1422 Consulting Physician: Dr. Ethan Hurd Returned Call: [phone] Ethan Hurd about the patient. He recommends a 3 hour troponin and making decision based on any dynamic changes. Impression Primary Impression: Precordial chest pain Additional Impression: Atrial fibrillation Scribe Attestation The scribe's documentation has been prepared under my direction and personally reviewed by me in its entirety. I confirm that the note above accurately reflects all work, treatment, procedures, and medical decision making performed by me. Departure Information Dispostion Home / Self-Care Referrals Bon Macias M.D. (PCP) Forms HOME CARE DOCUMENTATION FORM, IMPORTANT VISIT INFORMATION Patient Instructions ED Chest Pain Atypical Unkn Cause, My [facility] Additional Instructions Continue all medications as prescribed. Rest and avoid any strenuous activity. Follow-up with your family as well as her primary bogger operator for further evaluation. Return to the emergency department immediately if symptoms change worsen or the need arises. Problem Qualifiers Additional Impression: Atrial fibrillation Atrial fibrillation type: chronic Qualified Codes: I48.2 - Chronic atrial fibrillation
--- NOTE | 2016-10-03 13:09 | DIAGNOSTIC IMAGING REPORT ---
SINGLE VIEW CHEST CLINICAL HISTORY: Atypical chest pain. Dizziness. FINDINGS: An AP, portable, upright chest radiograph is compared to study dated 09/28/2016 and correlated with chest CT dated 09/15/2013. The examination is degraded by portable technique and patient rotation. The heart is enlarged and there is atherosclerotic calcification of the thoracic aorta. The pulmonary vasculature is noncongested. Mild chronic elevation of the right hemidiaphragm is unchanged. No airspace consolidation, large pleural effusion, or pneumothorax is seen. The skeletal structures are osteopenic. The bony thorax is grossly intact. IMPRESSION: Cardiomegaly with no acute cardiopulmonary abnormality. Electronically signed by: Barney Evangelista M.D. 10/03/2016 1:08 PM Dictated Date/Time: 10/03/2016 1:07 PM
[2016-10-03 13:18] VITALS: O2SAT 97
[2016-10-03 13:20] LABS: BASO % 0.8 %; BASO ABS # 0.06 K/uL (0-0.2); COMPLETE YES; EOS % 3.2 %; HEMATOCRIT 49.2 % (42-52); IG% 0.1 %; LYMPH % 18.1 %; LYMPH ABS # 1.37 K/uL (1.2-3.4); MEAN CELL VOLUME 89.1 fL (80-100); MEAN CORPUSCULAR HEMOGLOBIN 31.9 pg (25-34); MEAN CORPUSCULAR HGB CONC 35.8 g/dl (32-36); MEAN PLATELET VOLUME 9.7 fL (7.4-10.4); NEUT % 65.8 %; PLATELET COUNT 196 K/uL (130-400); RED BLOOD COUNT 5.52 M/uL (4.7-6.1); WHITE BLOOD COUNT 7.58 K/uL (4.8-10.8)
[2016-10-03 13:29] LABS: INR 1.2 (0.9-1.1); PARTIAL THROMBOPLASTIN RATIO 1.1; PROTHROMBIN TIME (PATIENT) 13.3 SECONDS (9.0-12.0)
[2016-10-03 13:39] LABS: BUN/CREATININE RATIO 17.1 (10-20); CALCIUM 8.8 mg/dl (8.5-10.1); CREATININE 1.6 mg/dl (0.60-1.40); POTASSIUM 4.2 mmol/L (3.5-5.1)
--- NOTE | 2016-10-03 13:39 | DIAGNOSTIC IMAGING REPORT ---
HEAD CT NONCONTRAST CT DOSE: 537.48 mGy.cm HISTORY: Mental status change RAYO TECHNIQUE: Multiaxial CT images of the head were performed without the use of intravenous contrast. Comparison: 03/05/2015 Findings: The paranasal sinuses and mastoid air cells are clear. The calvarium and skull base are intact. The ventricles and sulci are within normal limits. There is no mass, hematoma, midline shift, or acute infarct. Impression: No acute intracranial abnormality. Electronically signed by: Laci Fried M.D. 10/03/2016 1:38 PM Dictated Date/Time: 10/03/2016 1:36 PM
[2016-10-03] MEDS ORDERED: ASPI81TA28 PO (14:32)
[2016-10-03 18:00] VITALS: BP 133/77; PULSE 78; O2SAT 98
== END 2016-10-03 18:05 | disposition home or self-care (01) ==
LOC: C.EDB 12:42
DX: R07.2 Precordial pain (principal); I48.2 Chronic atrial fibrillation; Z98.890 Other specified postprocedural states; Z95.5 Presence of coronary angioplasty implant and graft; Z79.01 Long term (current) use of anticoagulants; G51.0 Bell's palsy; I25.10 Atherosclerotic heart disease of native coronary artery without angina pectoris; N18.3 Chronic kidney disease, stage 3 (moderate); E11.9 Type 2 diabetes mellitus without complications; I12.9 Hypertensive chronic kidney disease with stage 1 through stage 4 chronic kidney disease, or unspecified chronic kidney disease; Z80.9 Family history of malignant neoplasm, unspecified; Z83.3 Family history of diabetes mellitus; Z82.49 Family history of ischemic heart disease and other diseases of the circulatory system; Z84.1 Family history of disorders of kidney and ureter; Z79.82 Long term (current) use of aspirin; Z79.4 Long term (current) use of insulin; Z79.899 Other long term (current) drug therapy

== ENCOUNTER → 2016-10-16 | Outpatient (CLI) | payer OTHER ==
[~2016-10-16] MED LIST changes: +ASPI81TA28 PO
== END | disposition home or self-care (01) ==
LOC: C.PATHSPEC 17:38
PROVIDERS: ATTEND Physician Assistant Medical
DX: C67.9 Malignant neoplasm of bladder, unspecified (principal); R39.9 Unspecified symptoms and signs involving the genitourinary system

== ENCOUNTER → 2016-11-29 | Outpatient (CLI) | payer OTHER ==
[2016-11-29 12:51] LABS: CHOLESTEROL/HDL RATIO 4.8
[2016-11-29 13:30] LABS: ESTIMATED AVERAGE GLUCOSE 192 mg/dl; HA1C FLAG Normal (Normal)
== END | disposition home or self-care (01) ==
LOC: C.LABBFT 08:59
PROVIDERS: ATTEND Physician Assistant Medical
DX: C67.9 Malignant neoplasm of bladder, unspecified (principal); R39.9 Unspecified symptoms and signs involving the genitourinary system; E11.9 Type 2 diabetes mellitus without complications

== ENCOUNTER → 2016-12-07 | Outpatient (CLI) | payer OTHER ==
[2016-12-07 13:22] LABS: BLOOD UREA NITROGEN 27 mg/dl (7-18); BUN/CREATININE RATIO 14.3 (10-20); CALCIUM 9.6 mg/dl (8.5-10.1); CARBON DIOXIDE 32 mmol/L (21-32); CHLORIDE 99 mmol/L (98-107); GLUCOSE 341 mg/dl (70-99); POTASSIUM 4.6 mmol/L (3.5-5.1); SODIUM 138 mmol/L (136-145)
[2016-12-07 13:30] LABS: PHOSPHORUS 3.2 mg/dl (2.5-4.9)
== END | disposition home or self-care (01) ==
LOC: C.LABBFT 10:32
PROVIDERS: ATTEND Internal Medicine
DX: N18.3 Chronic kidney disease, stage 3 (moderate) (principal)

== ENCOUNTER → 2016-12-21 | Outpatient (CLI) | payer OTHER | END | disposition home or self-care (01) | LOC: C.PATHSPEC 17:32 | PROVIDERS: ATTEND Urology | DX: C67.9 Malignant neoplasm of bladder, unspecified (principal) ==

== ENCOUNTER → 2017-02-19 | Outpatient (CLI) | payer OTHER ==
[2017-02-19 12:22] LABS: HEMATOCRIT 49.4 % (42-52); MEAN CELL VOLUME 88.8 fL (80-100); MEAN CORPUSCULAR HEMOGLOBIN 31.7 pg (25-34); MEAN CORPUSCULAR HGB CONC 35.6 g/dl (32-36); MEAN PLATELET VOLUME 10.1 fL (7.4-10.4); PLATELET COUNT 192 K/uL (130-400); RED BLOOD COUNT 5.56 M/uL (4.7-6.1); WHITE BLOOD COUNT 7.73 K/uL (4.8-10.8)
[2017-02-19 12:35] LABS: URINE APPEARANCE CLEAR (CLEAR); URINE BILIRUBIN NEG (NEG); URINE COLOR YELLOW; URINE EPITHELIAL CELL AUTO 0-5 /lpf (0-5); URINE NITRITE NEG (NEG); URINE PH 5.5 (4.5-7.5); URINE SPECIFIC GRAVITY 1.022 (1.000-1.030); UROBILINOGEN NEG (NEG)
[2017-02-19 12:37] LABS: MANUAL MICROSCOPIC REQUIRED? NO; REVIEW REQ? NO
[2017-02-19 12:48] LABS: ESTIMATED AVERAGE GLUCOSE 200 mg/dl; HA1C FLAG Normal (Normal)
[2017-02-19 12:56] LABS: URINE PROTIEN/CREAT RATIO 0.6 (0-0.2); URINE TOTAL PROTEIN 80.8 mg/dl (0-11.9)
[2017-02-19 13:12] LABS: BLOOD UREA NITROGEN 25 mg/dl (7-18); BUN/CREATININE RATIO 14.8 (10-20); CALCIUM 9.2 mg/dl (8.5-10.1); CARBON DIOXIDE 29 mmol/L (21-32); CHLORIDE 102 mmol/L (98-107); GLUCOSE 218 mg/dl (70-99); PHOSPHORUS 2.4 mg/dl (2.5-4.9); POTASSIUM 3.9 mmol/L (3.5-5.1); SODIUM 139 mmol/L (136-145)
== END | disposition home or self-care (01) ==
LOC: C.LABBFT 08:02
PROVIDERS: ATTEND Internal Medicine Nephrology
DX: I12.9 Hypertensive chronic kidney disease with stage 1 through stage 4 chronic kidney disease, or unspecified chronic kidney disease (principal); N18.3 Chronic kidney disease, stage 3 (moderate); R80.9 Proteinuria, unspecified; E55.9 Vitamin D deficiency, unspecified; D49.4 Neoplasm of unspecified behavior of bladder; E11.22 Type 2 diabetes mellitus with diabetic chronic kidney disease

== ENCOUNTER → 2017-04-04 | Outpatient (CLI) | payer OTHER | END | disposition home or self-care (01) | LOC: C.LABBFT 09:02 | PROVIDERS: ATTEND Urology | DX: N40.0 Benign prostatic hyperplasia without lower urinary tract symptoms (principal); D49.4 Neoplasm of unspecified behavior of bladder; C67.9 Malignant neoplasm of bladder, unspecified ==

== ENCOUNTER → 2017-05-29 | Outpatient (CLI) | payer OTHER ==
--- NOTE | 2017-05-29 15:25 | DIAGNOSTIC IMAGING REPORT ---
CHEST 2 VIEWS ROUTINE CLINICAL HISTORY: RHONCHI, SOB, WHEEZING COMPARISON STUDY: 10/03/2016 FINDINGS: The cardiac and mediastinal contours are normal. There is no evidence of focal pulmonary consolidation. There is no evidence of failure. No pleural effusions are visualized.[ Indistinctness left cardiophrenic angle is felt to be secondary to a combination of fat pad and atelectatic change. IMPRESSION: No active disease in the chest. Electronically signed by: Canelo Diaz M.D. 05/29/2017 3:24 PM Dictated Date/Time: 05/29/2017 3:23 PM
== END | disposition home or self-care (01) ==
LOC: C.RAD1850 15:11
PROVIDERS: ATTEND Internal Medicine
DX: R06.02 Shortness of breath (principal); R06.2 Wheezing; R09.89 Other specified symptoms and signs involving the circulatory and respiratory systems

== ENCOUNTER → 2017-07-16 | Outpatient (CLI) | payer OTHER ==
[2017-07-16 12:33] LABS: HEMATOCRIT 51.3 % (42-52); MEAN CELL VOLUME 91.3 fL (80-100); MEAN CORPUSCULAR HGB CONC 35.1 g/dl (32-36); MEAN PLATELET VOLUME 10.2 fL (7.4-10.4); PLATELET COUNT 209 K/uL (130-400); RED CELL DISTRIBUTION WIDTH CV 14.8 % (11.5-14.5); RED CELL DISTRIBUTION WIDTH SD 49.7 fL (36.4-46.3); WHITE BLOOD COUNT 5.71 K/uL (4.8-10.8)
[2017-07-16 12:37] LABS: ALBUMIN 3.7 gm/dl (3.4-5.0); BLOOD UREA NITROGEN 33 mg/dl (7-18); CALCIUM 9.3 mg/dl (8.5-10.1); CARBON DIOXIDE 33 mmol/L (21-32); CREATININE 1.82 mg/dl (0.60-1.40); GLUCOSE 145 mg/dl (70-99); POTASSIUM 3.7 mmol/L (3.5-5.1); SODIUM 140 mmol/L (136-145)
[2017-07-16 12:41] LABS: HEMOGLOBIN A1C 7.7 % (4.5-5.6)
[2017-07-16 12:42] LABS: PHOSPHORUS 2.9 mg/dl (2.5-4.9)
== END | disposition home or self-care (01) ==
LOC: C.LABBFT 07:26
PROVIDERS: ATTEND Internal Medicine Nephrology
DX: I12.9 Hypertensive chronic kidney disease with stage 1 through stage 4 chronic kidney disease, or unspecified chronic kidney disease (principal); N18.3 Chronic kidney disease, stage 3 (moderate); R31.29 Other microscopic hematuria; R80.9 Proteinuria, unspecified; E55.9 Vitamin D deficiency, unspecified; C67.9 Malignant neoplasm of bladder, unspecified; E11.42 Type 2 diabetes mellitus with diabetic polyneuropathy; E11.22 Type 2 diabetes mellitus with diabetic chronic kidney disease

== ENCOUNTER → 2017-08-02 | Outpatient (CLI) | payer OTHER ==
--- NOTE | 2017-08-02 14:01 | DIAGNOSTIC IMAGING REPORT ---
VIDEO SWALLOW CLINICAL HISTORY: 72 years-old Male with R13.10 Dysphagia. TECHNIQUE: Video fluoroscopic evaluation of swallowing was performed in the AP and lateral projections by the speech pathology staff. The patient is fed nectar-thick and thin liquid barium, a barium coated wafer, and barium pudding. FLUOROSCOPY TIME: 1.7 minutes. A total of 526 images were submitted COMPARISON STUDY: Chest radiograph 05/29/2017 FINDINGS: There is normal hyoid excursion and epiglottic deflection. No significant penetration or aspiration identified. Swallowing function is within normal limits. IMPRESSION: 1. No aspiration identified. 2. Please see the speech pathologist report for detailed findings and recommendations. Electronically signed by: Dejan Hernandez M.D. 08/02/2017 1:59 PM Dictated Date/Time: 08/02/2017 1:57 PM
--- NOTE | 2017-08-03 11:56 | SWALLOWING EVALUATION ---
REFERRING SPEECH PATHOLOGIST: n/a HISTORY: This 72 year-old man was referred for a VFSS at [facility] in order to address c/o globus sensation. The patient has a PMH significant for Rosales's palsy (resolved), CAD, carotid artery occlusion, CKD III, DM II, hypertension, new onset A-fib, and GERD. Currently the patient's diet level is regular. PROCEDURE: The patient was seen in the Radiology Department of [facility] for the VFSS. Cursory examination of the oral cavity revealed adequate dentition (lower dentition sparse, but present). Movement of the articulators was WNL. The patient was seated on a stool and was viewed in both the Anterior-Posterior (A-P) and Lateral planes. Volitional phonation exercises completed in the A-P plane revealed bilateral vocal fold movement and vocal intensity within functional limits. In the lateral plane, the patient was given the following boluses: 1 tsp. thin liquid barium x 2, single swallow thin liquid barium self-presented from a cup x 2: one small bolus and one large bolus, 1 tsp. nectar-thick liquid barium, single swallow nectar-thick liquid barium self-presented from a cup, 1 tsp. barium pudding, and 1 club cracker with barium pudding. The patient was then repositioned into the A-P plane and given 1 tsp. barium pudding. RESULTS: Oral Stage: Labial seal complete. Bolus escape to floor of mouth when attempting to hold thin liquid between tongue and palate. Prolonged mastication d/t some deficient lower dentition. Brisk lingual movement for posterior bolus transfer. Contrast diffusely lining oral cavity after the swallow. Pharyngeal swallow initiation occurring when the bolus head was at the posterior angle of the ramus. Mild oral-stage dysphagia that did not impair swallow safety. Pharyngeal Stage: Velar elevation complete. Laryngeal elevation, anterior hyoid excursion, epiglottic inversion and laryngeal vestibular closure complete. Present pharyngeal stripping wave. Complete pharyngeal contraction. Adequate distention and duration of PES opening. Adequate tongue base retraction with no pharyngeal bolus retention. No penetration or aspiration during this study. Airway protection complete. No pharyngeal-stage dysphagia. Esophageal Stage: A pudding bolus transited the esophagus without impedance. SUMMARY/RECOMMENDATIONS: This patient presents with mild oral-stage dysphagia and no other s/s dysphagia. The following is recommended: 1. Diet as tolerated 2. If globus sensation persists, then f/u with gastroenterology for evaluation of esophageal function and medication regimen. A summary of the results and recommendations was discussed with the patient immediately following the study and he verbalized understanding. Thank you for referral of this patient. Please contact me at if any additional information is needed.
== END | disposition home or self-care (01) ==
LOC: C.RAD 12:57
PROVIDERS: ATTEND Internal Medicine
DX: R13.10 Dysphagia, unspecified (principal)

== ENCOUNTER → 2017-12-03 | Outpatient (CLI) | payer OTHER ==
[~2017-12-03] MED LIST changes: -ASPI81TA28 PO; -DORZ2SOL17 OP; +DORZ2SOL19 OP; +INSU1INJ33 INJ; -LVMI PO; -LVMI SC; +TOLT2TAB9 PO; +WARF7.5T4 PO
--- NOTE | 2017-12-03 12:36 | DIAGNOSTIC IMAGING REPORT ---
SACRUM COCCYX MIN 2 VIEWS HISTORY: 72 years-old Male S39.92XA acute pain of the coccyx COMPARISON: CT abdomen and pelvis 07/05/2014 TECHNIQUE: 2 views of the sacrum and coccyx FINDINGS: There is mild cortical irregularity and displacement between the Co2 and Co3 segments which is new from prior CT. There is suggestion of mild soft tissue swelling. Sacrum appears intact. Phleboliths of the pelvis. Degenerative changes of the hips. IMPRESSION: Mild cortical regularity and displacement of the distal coccyx appears new from comparison CT. This may reflect age-indeterminate fracture. Correlate with point tenderness. The above report was generated using voice recognition software. It may contain grammatical, syntax or spelling errors. Electronically signed by: Dejan Hernandez M.D. 12/03/2017 12:35 PM Dictated Date/Time: 12/03/2017 12:28 PM
== END | disposition home or self-care (01) ==
LOC: C.RAD1850 12:07
PROVIDERS: ATTEND Physician Assistant
DX: S39.92XA Unspecified injury of lower back, initial encounter (principal); X58.XXXA Exposure to other specified factors, initial encounter

== ENCOUNTER → 2017-12-20 | Outpatient (CLI) | payer OTHER ==
--- NOTE | 2017-12-20 16:26 | DIAGNOSTIC IMAGING REPORT ---
THORACIC SPINE 3 VIEWS ROUTINE HISTORY: Trauma S22.31XA Right rib [id number] COMPARISON: None. FINDINGS: There is no fracture. No subluxation. Moderate degenerative disc changes throughout. Considerable anterior and anterolateral osteophytic change. IMPRESSION: No fracture or subluxation within the thoracic spine. Degenerative change. The above report was generated using voice recognition software. It may contain grammatical, syntax or spelling errors. Electronically signed by: Laci Fried M.D. 12/20/2017 4:25 PM Dictated Date/Time: 12/20/2017 4:24 PM
--- NOTE | 2017-12-20 16:32 | DIAGNOSTIC IMAGING REPORT ---
PA CHEST WITH BILATERAL RIB SERIES CLINICAL HISTORY: Fall. Chest wall pain. FINDINGS: A PA chest radiograph with 8 additional views may bilateral rib series is compared to study dated 11/27/2017 and correlated with chest CT dated 11/27/2017. The heart is mildly enlarged and there is atherosclerotic calcification of the thoracic aorta. The pulmonary vasculature is noncongested. Chronic interstitial thickening is similar to previous. Bibasilar atelectasis is observed. No airspace consolidation or large pleural effusion is identified. No pneumothorax is seen. The skeletal structures are osteopenic. There is no radiographic evidence of acute/distracted rib fracture on the bilateral rib series. The remainder of the bony thorax is grossly intact. IMPRESSION: 1. Cardiomegaly with no acute cardiopulmonary amount. 2. There is no radiographic evidence of acute/distracted rib fracture on the rib series. 3. The left costal cartilage fracture seen by CT on 11/27/2017 was not apparent by x-ray. Electronically signed by: Barney Evangelista M.D. 12/20/2017 4:31 PM Dictated Date/Time: 12/20/2017 4:20 PM
== END | disposition home or self-care (01) ==
LOC: C.RAD1850 15:48
PROVIDERS: ATTEND Physician Assistant Medical
DX: S22.31XA Fracture of one rib, right side, initial encounter for closed fracture (principal); X58.XXXA Exposure to other specified factors, initial encounter; I51.7 Cardiomegaly

== ENCOUNTER → 2017-12-26 | Outpatient (CLI) | payer OTHER ==
[2017-12-26 12:52] LABS: INR 1.4 (0.9-1.1)
== END | disposition home or self-care (01) ==
LOC: C.LABBFT 08:37
PROVIDERS: ATTEND Internal Medicine Cardiovascular Disease
DX: E11.9 Type 2 diabetes mellitus without complications (principal); I48.91 Unspecified atrial fibrillation

== ENCOUNTER 2020-08-18 09:55 | Observation (INO) ==
[2020-08-18] MEDS ORDERED: ALBUT/IPRATROP 3MG/0.5MG NEB 3 ML VIAL INH STA (10:19)
--- NOTE | 2020-08-18 10:38 | Emergency Department Note ---
Impression & Plan Respiratory distress, SOB (shortness of breath), Wheezing ED Provider Note NAME: JAMIE CANO AGE: 75 SEX: M : 1945 ARRIVES VIA: Walk-In INFORMANT: [Patient][family] ED PROVIDER(S): [Barney Marks MD] CHIEF COMPLAINT: Short of breath HISTORY OF PRESENT ILLNESS: The patient is a 75-year-old male who presents to the ER with shortness of breath. The patient has had issues with his lungs for a year or so. He is seeing pulmonology. He does have inhalers to use at home. In the last few weeks, his breathing has worsened and he hears himself wheeze. His O2 saturation at home was in the 70s to 80s today and he was referred to the ED. There has been no fever, no real Covid exposures, he did notice a few hours of right-sided chest pain since this morning. The pain is a 7/10. There is no pleuritic nature to it. There has been no increased edema, he has had no vomiting or diarrhea. Patient states that his lung doctor has not yet made a diagnosis of why he is so short of breath. REVIEW OF SYSTEMS: See HPI for pertinent positives and negatives. A total of ten systems were reviewed and were otherwise negative. PMHx/PSHx: See Below SOCIAL HISTORY: See Below. PHYSICAL EXAM: GENERAL: Patient is in mild respiratory distress. HEENT: No acute trauma, normocephalic atraumatic, mucous membranes moist, no nasal congestion, no scleral icterus. NECK: No stridor, no adenopathy, no meningismus, trachea is midline. LUNGS: Diminished breath sounds bilaterally, wheezing bilaterally, he does seem short of breath with speaking. No crackles. Mild respiratory distress. HEART: Without murmurs gallops or rubs, somewhat irregular rhythm with a normal rate. ABDOMEN: Soft, nontender, bowel sounds positive, no hernias, no peritonitis. EXTREMITIES: No cyanosis or edema, full range of motion of all the joints without pain or difficulty, no signs for acute trauma. NEUROLOGIC: Oriented x 3, no acute motor or sensory deficits, no focal weakness. SKIN: No rash, no jaundice, no diaphoresis. DIFFERENTIAL DIAGNOSIS: Reactive airway disease, pneumonia, pneumothorax, COPD, CHF, COVID-19, influenza, infection, cardiac ischemia, pulmonary embolism, bronchitis, musculoskeletal, gastrointestinal, as well as other pathologies. EMERGENCY DEPARTMENT COURSE/PROCEDURES: ECG: Indication was shortness of breath. The ECG shows what appears to be an atrial fibrillation with a rate of 79. There is poor R wave progression. There is some nonspecific ST change and some baseline artifact. The QTc is 449. There is no ST elevation, no PVCs. Compared to an ECG from 27 July 2020, there is no significant change. Continuous Cardiac Monitoring: An order was placed for continuous cardiac monitoring. The monitor shows a rate of 81 with atrial fibrillation. Critical Care Note: I have personally spent 41 minutes of critical care time in the direct management of this patient. This includes bedside care, interpretation of diagnostic studies, and testing, discussion with consultants, patient, and family members, and other required patient management activities. This 41 minutes is in excess of all separately billable procedures. MEDICAL DECISION MAKING: There is no leukocytosis or concerning anemia. There is a normal platelet count. No coagulopathy. ABG does not show any CO2 retention or hypoxia. There was no acidosis. There was elevation to his creatinine, this is baseline though looking back at previous testing. No concerning liver enzyme elevation. ECG shows atrial fibrillation, no acute ischemia. Cardiac enzyme testing x1 is not consistent with acute cardiac injury. Covid and influenza testing were negative. Chest film does not show pneumonia or CHF. Chest CT did not show pneumonia, no CHF. On exam, the patient was short of breath to speak and just simple sentences. He was clearly wheezing, the wheezing could be heard just walking into his room. The patient was given a DuoNeb, a second DuoNeb was then administered. He was given IV Solu-Medrol and IV Levaquin. The patient is short of breath, he is wheezing. He has been feeling worse over the last several days. Given his mild respiratory distress, given the wheezing, I do think a hospital stay is warranted. At this point, the cause for his worsening breathing is unclear. Certainly he may have a bronchitis and a flareup of his underlying lung disease. Basically, he is not safe for discharge home today. I did speak with the patient and case management. The on-call hospitalist was consulted. Past Med/Surg History Medical History Alzheimer disease on donepezil Anticoagulant long-term use Atrial fibrillation Bladder cancer 2015--sx CAD (coronary artery disease) Cancer of skin of back Cancer of skin of left ear Carotid art occ w/o infarc Chronic kidney disease, stage III (moderate) Degenerative disc disease Diabetes mellitus with neurological manifestations, uncontrolled Diabetes mellitus, type II, insulin dependent Diabetic nephropathy Diabetic peripheral neuropathy Diabetic retinopathy, nonproliferative, mild Dysphagia causing pulmonary aspiration with swallowing GERD (gastroesophageal reflux disease) Glaucoma Hearing deficit History of colon polyps Hyperlipidemia Hypertension Low back pain Malignant neoplasm of bladder Microscopic hematuria Mycotic toenails Odynophagia Pain in thoracic spine Peripheral neuropathy bilt feet Proteinuria Tubular adenoma of colon Urethral stricture Urinary retention Vertigo Vitamin D deficiency Surgical History H/O heart artery stent (2014) 2014 x4 stents @ [facility] History of bilateral cataract extraction History of bladder surgery 2014 bladder tumor removal @ [facility] History of cardiac cath x3--2011, 2014, [address] [facility] History of colonoscopy History of tonsillectomy and adenoidectomy Presence of stent in LAD coronary artery (2011) S/P right coronary artery (RCA) stent placement (2016) Family History Mother Family history of diabetes mellitus COPD (chronic obstructive pulmonary disease) Father Family history of diabetes mellitus Acute appendicitis Brother Hx of CABG Sister Heart disease Other Coronary heart disease Denies family history of Kidney disease Social History Smoking Status: Never smoker Age Quit Using Tobacco: 29; Number of Years Since Quit: 44; Second Hand Exposure: No; Hx Alcohol Use: No Hx Substance Use: No Preferred Language: Montenegrin Communication Ability: Effective Visual Impairment: No Limitations Hearing Ability: Hard of Hearing Consumer Analyst Required: No Beliefs That Will Affect Care: None Current Living Situation: Spouse current occupational status: retired Feels Safe at Home: Yes Seatbelt Use: always Assistive Devices: Glasses Allergies Allergies Allergy/AdvReac Type Severity Reaction Status Date / Time Penicillins Allergy Severe FACIAL Verified 07/13/20 13:33 SWELLING AND RASH amoxicillin Allergy Intermediate RASH Verified 07/13/20 13:33 clavulanic acid Allergy Intermediate RASH Verified 07/13/20 13:33 cholestyramine Allergy Unknown per nephro Verified 07/13/20 13:33 note niacin Allergy Unknown per nephro Verified 07/13/20 13:33 note phenylephrine Allergy Unknown per nephro Verified 07/13/20 13:33 note Esgknog-Iyg-Kiu Reductase Allergy Unknown JOINT Verified 07/13/20 13:33 Inhibitor STIFFNESS AND PAIN azithromycin Allergy PER NEPHRO Verified 07/13/20 13:33 NOTE Home Meds Home Medications Medication Instructions Recorded Confirmed dorzolamide [Trusopt] 1 drp OPB BID 03/13/18 08/18/20 glucosamine sulfate [Glucosamine] 2 tabs PO QAM 03/13/18 08/18/20 latanoprost [Xalatan] 1 drp OPB PM 03/13/18 08/18/20 magnesium chloride [Mag 64] 64 mg PO QAM 03/13/18 08/18/20 insulin aspart U-100 100 unit/mL 60 unit SUBCUT DAILY ml 12/25/19 08/18/20 subcutaneous solution albuterol sulfate [Ventolin HFA] 2 puff INHALATION DAILY 08/18/20 08/18/20 tamsulosin 0.4 mg PO QPM 08/18/20 08/18/20 Previous Rx's Medication Instructions Recorded nitroglycerin 0.4 mg sublingual 0.4 mg SUBLINGUAL UD PRN #1 btl 03/12/19 tablet OneTouch UltraSoft Lancets #400 ea NS 05/23/19 insulin syringe-needle U-100 0.5 #300 ea 08/13/19 mL 31 gauge x 5/16" dutasteride 0.5 mg capsule 0.5 mg PO DAILY #90 cap 08/14/19 apixaban 5 mg tablet 5 mg PO BID #60 tab 08/15/19 triamterene 37.5 1 cap PO QAM #90 cap 10/07/19 mg-hydrochlorothiazide 25 mg capsule Portable Oxygen #1 ea 11/25/19 furosemide 40 mg tablet 40 mg PO DAILY #180 tab 01/08/20 pantoprazole 40 mg tablet,delayed 40 mg PO DAILY #30 tab 01/14/20 release donepezil 10 mg tablet 10 mg PO QAM #90 tab 02/10/20 sertraline 25 mg tablet 25 mg PO DAILY #90 tab 02/10/20 metoprolol succinate 100 mg 100 mg PO QAM #90 tab 02/12/20 tablet,extended release 24 hr clopidogrel 75 mg tablet 75 mg PO Q2D #45 tab 03/01/20 BD Ultra-Fine Short Pen Needle 31 #100 ea NS 05/25/20 gauge x 5/16" OneTouch Ultra Blue Test Strip #400 ea NS 06/07/20 Tresiba FlexTouch U-100 100 56 unit SQ DAILY #60 ml NS 06/07/20 unit/mL (3 mL) subcutaneous pen potassium chloride 20 mEq 20 meq PO QAM PRN #60 tab 06/16/20 tablet,extended release umeclidinium 62.5 mcg-vilanterol 1 inh INHALATION DAILY #60 ea 07/13/20 25 mcg/actuation powdr for inhalation hydralazine 50 mg tablet 100 mg PO QID 90 Days #720 tab 07/23/20 Results & Data (ED) Vital Signs Vital Signs - 24 hr 08/18/20 09:58 08/18/20 10:09 08/18/20 10:11 Temperature 36.4 C L Temperature Source Temporal Artery Scan Pulse Rate 86 78 Pulse Rate [Right Radial] Pulse Rate from SpO2 Sensor 83 Respiratory Rate 26 H 24 Respiratory Effort / Characteristics Short of Breath Spontaneous Labored Respiratory Depth Normal Normal Respiratory Pattern Regular Blood Pressure 131/83 149/64 H Blood Pressure Mean 99 92 Blood Pressure Position Sitting Pulse Oximetry 95 94 Oxygen Delivery Method Room Air Room Air Oxygen Flow Rate Sepsis Recent Fever Within 48 Hours No Sepsis New/Unexplained Change in Mental Status No Sepsis Action Taken by Nursing No Action Required 08/18/20 10:28 08/18/20 10:30 08/18/20 10:31 Temperature Temperature Source Pulse Rate 94 H 88 Pulse Rate [Right Radial] Pulse Rate from SpO2 Sensor 93 H 84 Respiratory Rate 20 14 Respiratory Effort / Characteristics Respiratory Depth Respiratory Pattern Blood Pressure 136/74 Blood Pressure Mean 94 Blood Pressure Position Pulse Oximetry 94 92 Oxygen Delivery Method Room Air Oxygen Flow Rate Sepsis Recent Fever Within 48 Hours Sepsis New/Unexplained Change in Mental Status Sepsis Action Taken by Nursing 08/18/20 10:51 08/18/20 10:58 08/18/20 11:00 Temperature Temperature Source Pulse Rate 100 H 82 Pulse Rate [Right Radial] 81 Pulse Rate from SpO2 Sensor 88 Respiratory Rate 18 22 21 Respiratory Effort / Characteristics Non-Labored Spontaneous Labored Respiratory Depth Respiratory Pattern Blood Pressure 158/69 H Blood Pressure Mean 98 Blood Pressure Position Pulse Oximetry 96 95 95 Oxygen Delivery Method Room Air Room Air Oxygen Flow Rate 95 Sepsis Recent Fever Within 48 Hours Sepsis New/Unexplained Change in Mental Status Sepsis Action Taken by Nursing 08/18/20 11:31 08/18/20 11:33 08/18/20 12:00 Temperature Temperature Source Pulse Rate 81 83 Pulse Rate [Right Radial] Pulse Rate from SpO2 Sensor 81 82 92 H Respiratory Rate 17 18 Respiratory Effort / Characteristics Respiratory Depth Respiratory Pattern Blood Pressure 150/91 H Blood Pressure Mean 110 Blood Pressure Position Pulse Oximetry 94 89 L 94 Oxygen Delivery Method Oxygen Flow Rate Sepsis Recent Fever Within 48 Hours Sepsis New/Unexplained Change in Mental Status Sepsis Action Taken by Nursing 08/18/20 12:01 08/18/20 12:30 08/18/20 12:45 Temperature Temperature Source Pulse Rate 92 H 77 Pulse Rate [Right Radial] 84 Pulse Rate from SpO2 Sensor 82 Respiratory Rate 22 23 16 Respiratory Effort / Characteristics Non-Labored Spontaneous Respiratory Depth Respiratory Pattern Blood Pressure 170/95 H 161/72 H Blood Pressure Mean 120 101 Blood Pressure Position Pulse Oximetry 95 96 Oxygen Delivery Method Room Air Oxygen Flow Rate Sepsis Recent Fever Within 48 Hours Sepsis New/Unexplained Change in Mental Status Sepsis Action Taken by Nursing 08/18/20 13:00 08/18/20 13:51 08/18/20 14:00 Temperature Temperature Source Pulse Rate 87 80 88 Pulse Rate [Right Radial] Pulse Rate from SpO2 Sensor 73 93 H 79 Respiratory Rate 18 23 21 Respiratory Effort / Characteristics Respiratory Depth Respiratory Pattern Blood Pressure 152/95 H 158/87 H 165/99 H Blood Pressure Mean 114 110 121 Blood Pressure Position Pulse Oximetry 94 92 95 Oxygen Delivery Method Room Air Room Air Oxygen Flow Rate Sepsis Recent Fever Within 48 Hours Sepsis New/Unexplained Change in Mental Status Sepsis Action Taken by Nursing 08/18/20 14:30 08/18/20 15:00 08/18/20 15:30 Temperature Temperature Source Pulse Rate 85 87 83 Pulse Rate [Right Radial] Pulse Rate from SpO2 Sensor 89 83 87 Respiratory Rate 21 15 23 Respiratory Effort / Characteristics Respiratory Depth Respiratory Pattern Blood Pressure 152/101 H 146/100 H 170/102 H Blood Pressure Mean 118 115 124 Blood Pressure Position Pulse Oximetry 92 94 91 Oxygen Delivery Method Room Air Oxygen Flow Rate Sepsis Recent Fever Within 48 Hours Sepsis New/Unexplained Change in Mental Status Sepsis Action Taken by Nursing 08/18/20 16:00 08/18/20 16:30 Temperature Temperature Source Pulse Rate 86 87 Pulse Rate [Right Radial] Pulse Rate from SpO2 Sensor 93 H 107 H Respiratory Rate 18 20 Respiratory Effort / Characteristics Respiratory Depth Respiratory Pattern Blood Pressure 161/108 H 145/96 H Blood Pressure Mean 125 112 Blood Pressure Position Pulse Oximetry 94 95 Oxygen Delivery Method Oxygen Flow Rate Sepsis Recent Fever Within 48 Hours Sepsis New/Unexplained Change in Mental Status Sepsis Action Taken by [facility] Medications Current Medication List: was personally reviewed by me Laboratory Data Attestation: I reviewed the patient's lab results. Result diagrams: 08/18/20 10:53 08/18/20 10:53 Lab Results 08/18/20 08/18/20 08/18/20 Range/Units 10:53 10:53 10:53 WBC 7.86 (4.8-10.8) K/uL RBC 5.05 (4.7-6.1) M/uL Hgb 16.2 (14.0-18.0) g/dL Hct 45.5 (42-52) % MCV 90.1 (80-100) fL MCH 32.1 (25-34) pg MCHC 35.6 (32-36) g/dL RDW Std Deviation 46.5 H (36.4-46.3) fL RDW Coeff of Carolyn 14.2 (11.5-14.5) % Plt Count 256 (130-400) K/uL MPV 10.0 (7.4-10.4) fL Immature Gran % (Auto) 0.3 % Neut % (Auto) 72.9 % Lymph % (Auto) 13.9 % [place] % (Auto) 8.1 % Eos % (Auto) 3.8 % Baso % (Auto) 1.0 % Neut # (Auto) 5.73 (1.4-6.5) K/uL Lymph # (Auto) 1.09 L (1.2-3.4) K/uL [place] # (Auto) 0.64 H (0.11-0.59) K/uL Eos # (Auto) 0.30 (0-0.5) K/uL Baso # (Auto) 0.08 (0-0.2) K/uL Immature Gran # (Auto) 0.02 (0.00-0.02) K/uL PT 10.5 (9.0-12.0) Seconds INR 1.0 (0.9-1.1) APTT 26.3 (21.0-31.0) Seconds PTT Ratio 1.0 ABG pH (7.35-7.45) ABG pCO2 (35-46) mmHg ABG pO2 (80-95) mmHg ABG HCO3 (19-24) mmol/L ABG O2 Saturation (90-95) % ABG Base Excess (-9-1.8) mEq/L Alek Test (Pos) Barometric Pressure mm/Hg Oxygen Given Sodium 139 (136-145) mmol/L Potassium 3.6 (3.5-5.1) mmol/L Chloride 104 (98-107) mmol/L Carbon Dioxide 30 (21-32) mmol/L Anion Gap 5.0 (3-11) BUN 38 H (7-18) mg/dl Creatinine 2.05 H (0.6-1.4) mg/dl Est Cr Clr Drug Dosing 35.2 ml/min Est GFR ( Amer) 35.2 Est GFR (Non-Af Amer) 30.3 BUN/Creatinine Ratio 18.6 (10-20) Glucose 166 H (70-99) mg/dl Calcium 8.9 (8.5-10.1) mg/dl Magnesium 1.9 (1.8-2.4) mg/dl Total Bilirubin 0.5 (0.2-1) mg/dl AST 20 (15-37) U/L ALT 27 (12-78) U/L Alkaline Phosphatase 94 (45-117) U/L Troponin I < 0.015 (0-0.045) ng/ml NT-Pro-B Natriuret Pep (0-1800) pg/ml Total Protein 7.1 (6.4-8.2) gm/dl Albumin 3.3 L (3.4-5.0) gm/dl Globulin 3.8 (2.5-4.0) gm/dl Albumin/Globulin Ratio 0.9 (0.9-2) COVID-19 Eval Order SARS-CoV-2 (PCR) (Negative) Influenza Type A (PCR) (Neg) Influenza Type B (PCR) (Neg) RSV (RT-PCR) (Neg) 08/18/20 08/18/20 08/18/20 Range/Units 10:53 10:53 10:58 WBC (4.8-10.8) K/uL RBC (4.7-6.1) M/uL Hgb (14.0-18.0) g/dL Hct (42-52) % MCV (80-100) fL MCH (25-34) pg MCHC (32-36) g/dL RDW Std Deviation (36.4-46.3) fL RDW Coeff of Craolyn (11.5-14.5) % Plt Count (130-400) K/uL MPV (7.4-10.4) fL Immature Gran % (Auto) % Neut % (Auto) % Lymph % (Auto) % [place] % (Auto) % Eos % (Auto) % Baso % (Auto) % Neut # (Auto) (1.4-6.5) K/uL Lymph # (Auto) (1.2-3.4) K/uL [place] # (Auto) (0.11-0.59) K/uL Eos # (Auto) (0-0.5) K/uL Baso # (Auto) (0-0.2) K/uL Immature Gran # (Auto) (0.00-0.02) K/uL PT (9.0-12.0) Seconds INR (0.9-1.1) APTT (21.0-31.0) Seconds PTT Ratio ABG pH 7.45 (7.35-7.45) ABG pCO2 45 (35-46) mmHg ABG pO2 82 (80-95) mmHg ABG HCO3 30 H (19-24) mmol/L ABG O2 Saturation 96.5 H (90-95) % ABG Base Excess 5.3 H (-9-1.8) mEq/L Alek Test Pos (Pos) Barometric Pressure 731.9 mm/Hg Oxygen Given RA Sodium (136-145) mmol/L Potassium (3.5-5.1) mmol/L Chloride (98-107) mmol/L Carbon Dioxide (21-32) mmol/L Anion Gap (3-11) BUN (7-18) mg/dl Creatinine (0.6-1.4) mg/dl Est Cr Clr Drug Dosing ml/min Est GFR ( Amer) Est GFR (Non-Af Amer) BUN/Creatinine Ratio (10-20) Glucose (70-99) mg/dl Calcium (8.5-10.1) mg/dl Magnesium (1.8-2.4) mg/dl Total Bilirubin (0.2-1) mg/dl AST (15-37) U/L ALT (12-78) U/L Alkaline Phosphatase (45-117) U/L Troponin I (0-0.045) ng/ml NT-Pro-B Natriuret Pep 677 (0-1800) pg/ml Total Protein (6.4-8.2) gm/dl Albumin (3.4-5.0) gm/dl Globulin (2.5-4.0) gm/dl Albumin/Globulin Ratio (0.9-2) COVID-[address] Eval [address] CovFluRsv at [facility] SARS-CoV-2 (PCR) (Negative) Influenza Type A (PCR) (Neg) Influenza Type B (PCR) (Neg) RSV (RT-PCR) (Neg) 08/18/20 Range/Units 10:58 WBC (4.8-10.8) K/uL RBC (4.7-6.1) M/uL Hgb (14.0-18.0) g/dL Hct (42-52) % MCV (80-100) fL MCH (25-34) pg MCHC (32-36) g/dL RDW Std Deviation (36.4-46.3) fL RDW Coeff of Carolyn (11.5-14.5) % Plt Count (130-400) K/uL MPV (7.4-10.4) fL Immature Gran % (Auto) % Neut % (Auto) % Lymph % (Auto) % [place] % (Auto) % Eos % (Auto) % Baso % (Auto) % Neut # (Auto) (1.4-6.5) K/uL Lymph # (Auto) (1.2-3.4) K/uL [place] # (Auto) (0.11-0.59) K/uL Eos # (Auto) (0-0.5) K/uL Baso # (Auto) (0-0.2) K/uL Immature Gran # (Auto) (0.00-0.02) K/uL PT (9.0-12.0) Seconds INR (0.9-1.1) APTT (21.0-31.0) Seconds PTT Ratio ABG pH (7.35-7.45) ABG pCO2 (35-46) mmHg ABG pO2 (80-95) mmHg ABG HCO3 (19-24) mmol/L ABG O2 Saturation (90-95) % ABG Base Excess (-9-1.8) mEq/L Alek Test (Pos) Barometric Pressure mm/Hg Oxygen Given Sodium (136-145) mmol/L Potassium (3.5-5.1) mmol/L Chloride (98-107) mmol/L Carbon Dioxide (21-32) mmol/L Anion Gap (3-11) BUN (7-18) mg/dl Creatinine (0.6-1.4) mg/dl Est Cr Clr Drug Dosing ml/min Est GFR ( Amer) Est GFR (Non-Af Amer) BUN/Creatinine Ratio (10-20) Glucose (70-99) mg/dl Calcium (8.5-10.1) mg/dl Magnesium (1.8-2.4) mg/dl Total Bilirubin (0.2-1) mg/dl AST (15-37) U/L ALT (12-78) U/L Alkaline Phosphatase (45-117) U/L Troponin I (0-0.045) ng/ml NT-Pro-B Natriuret Pep (0-1800) pg/ml Total Protein (6.4-8.2) gm/dl Albumin (3.4-5.0) gm/dl Globulin (2.5-4.0) gm/dl Albumin/Globulin Ratio (0.9-2) COVID-19 Eval Order SARS-CoV-2 (PCR) NEGATIVE (Negative) Influenza Type A (PCR) Negative (Neg) Influenza Type B (PCR) Negative (Neg) RSV (RT-PCR) Negative (Neg) Administered Medications Discontinued Medications Albuterol (Albut/Ipratrop 3mg/0.5mg Neb 3 Ml Vial) 3 ml INH NOW STA Stop: 08/18/20 10:20 Last Admin: 08/18/20 10:50 Dose: 3 ml Documented by: [id number] Albuterol (Albut/Ipratrop 3mg/0.5mg Neb 3 Ml Vial) 3 ml NEB NOW STA Stop: 08/18/20 12:25 Last Admin: 08/18/20 12:45 Dose: 3 ml Documented by: [id number] Levofloxacin/Dextrose (Levaquin/D5w) 500 mg in 100 mls @ 100 mls/hr IV NOW STA Stop: 08/18/20 13:23 Last Infusion: 08/18/20 13:57 Dose: 0 mls/hr Documented by: [id number] Admin: 08/18/20 12:35 Dose: 100 mls/hr Documented by: [id number] Methylprednisolone (Methylprednisolone 125 Mg/2 Ml Vial) 60 mg IV NOW STA Stop: 08/18/20 12:25 Last Admin: 08/18/20 12:36 Dose: 60 mg Documented by: [id number] Imaging Data Radiologist's Impression: Chest X-Ray 08/18/20 10:19 XR chest 1V portable CLINICAL HISTORY: Shortness of breath COMPARISON STUDY: 07/27/2020 FINDINGS: The cardiac and mediastinal contours are normal. There is no evidence of focal pulmonary consolidation. There is no evidence of failure. No pleural effusions are visualized.[There is a vague left midlung zone opacity, likely representing a summation. If symptoms persist, additional imaging could be obtained in follow-up. IMPRESSION: 1. Vague left midlung zone opacity, likely representing a summation. 2. No evidence of lobar consolidation. No evidence of failure ACT 112: Negative or not required by law. Electronically signed by: Canelo Diaz M.D. 08/18/2020 10:[address] 08/18/20 11:31 CT chest diagnostic wo con CLINICAL HISTORY: Progressive shortness of breath and wheezing COMPARISON STUDY: 11/27/2017, chest x-ray dated 08/18/2020 CT DOSE: 858.55 mGy.cm TECHNIQUE: CT of the thorax was performed from the thoracic inlet to the lung bases. Images are reviewed in the axial, sagittal, and coronal planes. IV contrast was not administered for this examination. A dose lowering technique was utilized adhering to the principles of ALARA. FINDINGS: Thyroid: Imaged portions of the thyroid gland are normal in appearance. Thoracic aorta: The thoracic aorta is normal in course and caliber, noting standard 3 vessel arch anatomy. Heart: The heart is the upper limits of normal in size. There is a trace pericardial effusion. There are moderately extensive coronary artery calcifications. Lungs and pleural spaces: There are no pleural effusions. There is no pneumothorax. There is no acute parenchymal consolidation. There are minor basilar atelectatic changes. There are a few scattered pulmonary micronodules present. There are no suspicious pulmonary masses. Mediastinum: There is an 11 mm right paratracheal lymph node demonstrating a normal fatty hilum. This is likely benign. Serenity: There is no evidence of pathologic hilar adenopathy given the limitations of a noncontrast study. Axilla: There is no evidence of pathologic axillary lymphadenopathy. Upper abdomen: Hepatic hypodensity in the region of the falciform ligament, likely represents focal fat. Skeletal structures: There is a healing sternal fracture. IMPRESSION: 1. No evidence of focal pulmonary consolidation 2. No suspicious pulmonary masses 3. Healing sternal fracture ACT 112: Negative or not required by law. Electronically signed by: Canelo Diaz M.D. 08/18/2020 12:05 PM Discharge Plan Visit Data Chief Complaint: Shortness of Breath/Dyspnea Stated Complaint: SOB,COUGH,WHEEZING ED Provider: Barney Marks Discharge Problem: Respiratory distress, SOB (shortness of breath), Wheezing Patient Disposition: Admitted As Inpatient Condition: Fair Forms Stand Alone Forms: [facility] Critique^It Prescriptions Prescriptions: No Action (DME) insulin syringe-needle U-100 [BD Insulin Syringe Ultra-Fine] 0.5 mL 31 gauge x 5/16" syringe See Rx Instructions .ROUTE .MEDSUPPLY Qty: 300 RF: 3 dutasteride 0.5 mg capsule 0.5 mg PO DAILY Qty: 90 RF: 3 pantoprazole 40 mg tablet,delayed release (DR/EC) 40 mg PO DAILY Qty: 30 RF: 5 metoprolol succinate 100 mg tablet extended release 24 hr 100 mg PO QAM Qty: 90 RF: 3 clopidogrel 75 mg tablet 75 mg PO Q2D Qty: 45 RF: 3 (DME) pen needle, diabetic [BD Ultra-Fine Short Pen Needle] 31 gauge x 5/16" needle See Rx Instructions .ROUTE .MEDSUPPLY Qty: 100 RF: 0 (DME) OneTouch Ultra Blue Test Strip Strip See Rx Instructions .ROUTE .MEDSUPPLY Qty: 400 RF: 3 Tresiba FlexTouch U-100 100 unit/mL (3 mL) insulin pen 56 unit SQ DAILY Qty: 60 RF: 3 potassium chloride 20 mEq tablet extended release 20 meq PO QAM PRN (Reason: Muscle Cramps from Lasix) Qty: 60 RF: 2 hydralazine 50 mg tablet 100 mg PO QID 90 Days Qty: 720 RF: 3 nitroglycerin [Nitrostat] 0.4 mg tablet, sublingual 0.4 mg Sublingual UD PRN (Reason: Chest Pain) Qty: 1 RF: 5 (DME) Portable Oxygen Misc See Rx Instructions .ROUTE .MEDSUPPLY Qty: 1 RF: 0 triamterene-hydrochlorothiazid 37.5-25 mg capsule 1 cap PO QAM Qty: 90 RF: 3 Hold Instructions: Taking Lasix daily donepezil 10 mg tablet 10 mg PO QAM Qty: 90 RF: 6 sertraline [Zoloft] 25 mg tablet 25 mg PO DAILY Qty: 90 RF: 6 Eliquis 5 mg tablet 5 mg PO BID Qty: 60 RF: 2 insulin aspart U-100 [Novolog U-100 Insulin aspart] 100 unit/mL solution 60 unit subcut DAILY RF: 0 Anoro Ellipta 62.5-25 mcg/actuation blister with device 1 inh inhalation DAILY Qty: 60 RF: 2 (DME) lancets [OneTouch UltraSoft Lancets] Misc See Rx Instructions .ROUTE .MEDSUPPLY Qty: 400 RF: 3 furosemide 40 mg tablet 40 mg PO DAILY Qty: 180 RF: 3 latanoprost [Xalatan] 0.005 % Drops 1 drp OPB PM RF: 0 glucosamine sulfate [Glucosamine] 500 mg Tablet 2 tabs PO QAM RF: 0 dorzolamide [Trusopt] 2 % Drops 1 drp OPB BID RF: 0 magnesium chloride [Mag 64] 64 mg Tablet,Delayed Release (Dr/Ec) 64 mg PO QAM RF: 0 albuterol sulfate [Ventolin HFA] 90 mcg/actuation HFA aerosol inhaler 2 puff inhalation DAILY RF: 0 tamsulosin 0.4 mg capsule 0.4 mg PO QPM RF: 0 Referrals Referrals: Delonte Macias MD [Primary Care Provider] -
--- NOTE | 2020-08-18 10:46 | XRay Report ---
XR chest 1V portable CLINICAL HISTORY: Shortness of breath COMPARISON STUDY: 07/27/2020 FINDINGS: The cardiac and mediastinal contours are normal. There is no evidence of focal pulmonary co nsolidation. There is no evidence of failure. No pleural effusions are visualized.[There is a vague l eft midlung zone opacity, likely representing a summation. If symptoms persist, additional imaging co uld be obtained in follow-up. IMPRESSION: 1. Vague left midlung zone opacity, likely representing a summation. 2. No evidence of lobar consolidation. No evidence of failure ACT 112: Negative or not required by law. Electronically signed by: Canelo Diaz M.D. 08/18/2020 10:45 AM
[2020-08-18 11:06] LABS: Basophils # (auto) 0.08 K/uL (0-0.2); Eosinophils % (auto) 3.8 %; Hematocrit (blood only) 45.5 % (42-52); Hemoglobin 16.2 g/dL (14.0-18.0); Immature Granulocytes # (auto) 0.02 K/uL (0.00-0.02); Immature Granulocytes % (auto) 0.3 %; Lymphocytes # (auto) 1.09 K/uL (1.2-3.4); Lymphocytes % (auto) 13.9 %; Mean Corpuscular Hemoglobin 32.1 pg (25-34); Mean Corpuscular Hgb Conc 35.6 g/dL (32-36); Mean Corpuscular Volume 90.1 fL (80-100); Monocytes # (auto) 0.64 K/uL (0.11-0.59); Monocytes % (auto) 8.1 %; Neutrophils # (auto) 5.73 K/uL (1.4-6.5); Neutrophils % (auto) 72.9 %; Platelet Count 256 K/uL (130-400); RDW Coefficient of Variation 14.2 % (11.5-14.5); RDW Standard Deviation 46.5 fL (36.4-46.3); Red Blood Count 5.05 M/uL (4.7-6.1); White Blood Count 7.86 K/uL (4.8-10.8)
[2020-08-18 11:09] LABS: Base Excess ABG 5.3 mEq/L (-9-1.8); HCO3 ABG 30 mmol/L (19-24); Oxygen Saturation ABG 96.5 % (90-95); PCO2 ABG 45 mmHg (35-46); PO2 ABG 82 mmHg (80-95); pH ABG 7.45 (7.35-7.45)
[2020-08-18 11:10] LABS: Allen Test Pos (Pos)
[2020-08-18 11:26] LABS: Alanine Aminotransferase 27 U/L (12-78); Albumin Level 3.3 gm/dl (3.4-5.0); Aspartate Aminotransferase 20 U/L (15-37); BUN Creatinine Ratio 18.6 (10-20); Blood Urea Nitrogen 38 mg/dl (7-18); Calcium 8.9 mg/dl (8.5-10.1); Carbon Dioxide 30 mmol/L (21-32); Chloride 104 mmol/L (98-107); Creatinine Clr Calc Pharmacy 35.2 ml/min; Est GFR (African American) 35.2; Est GFR (Non-African American) 30.3; Glucose 166 mg/dl (70-99); Magnesium 1.9 mg/dl (1.8-2.4); Potassium 3.6 mmol/L (3.5-5.1); Sodium 139 mmol/L (136-145)
[2020-08-18 11:28] LABS: Partial Thromboplastin Time 26.3 Seconds (21.0-31.0); Prothrombin Time 10.5 Seconds (9.0-12.0)
[2020-08-18 11:31] LABS: Albumin Globulin Ratio 0.9 (0.9-2); Alkaline Phosphatase 94 U/L (45-117); Bilirubin,Total 0.5 mg/dl (0.2-1); Globulin 3.8 gm/dl (2.5-4.0); Total Protein 7.1 gm/dl (6.4-8.2); Troponin I < 0.015 ng/ml (0-0.045)
[2020-08-18 11:51] LABS: Influenza A virus by PCR Negative (Neg); Influenza B virus by PCR Negative (Neg); RSV by PCR Negative (Neg); SARS CoV2 RNA(COVID-19) InHosp NEGATIVE (Negative)
--- NOTE | 2020-08-18 12:06 | CT Scan Report ---
CT chest diagnostic wo con CLINICAL HISTORY: Progressive shortness of breath and wheezing COMPARISON STUDY: 11/27/2017, chest x-ray dated 08/18/2020 CT DOSE: 858.55 mGy.cm TECHNIQUE: CT of the thorax was performed from the thoracic inlet to the lung bases. Images are revi ewed in the axial, sagittal, and coronal planes. IV contrast was not administered for this examinatio n. A dose lowering technique was utilized adhering to the principles of ALARA. FINDINGS: Thyroid: Imaged portions of the thyroid gland are normal in appearance. Thoracic aorta: The thoracic aorta is normal in course and caliber, noting standard 3 vessel arch deya heike. Heart: The heart is the upper limits of normal in size. There is a trace pericardial effusion. There are moderately extensive coronary artery calcifications. Lungs and pleural spaces: There are no pleural effusions. There is no pneumothorax. There is no acute parenchymal consolidation. There are minor basilar atelectatic changes. There are a few scattered pu lmonary micronodules present. There are no suspicious pulmonary masses. Mediastinum: There is an 11 mm right paratracheal lymph node demonstrating a normal fatty hilum. This is likely benign. Serenity: There is no evidence of pathologic hilar adenopathy given the limitations of a noncontrast stud y. Axilla: There is no evidence of pathologic axillary lymphadenopathy. Upper abdomen: Hepatic hypodensity in the region of the falciform ligament, likely represents focal fat. Skeletal structures: There is a healing sternal fracture. IMPRESSION: 1. No evidence of focal pulmonary consolidation 2. No suspicious pulmonary masses 3. Healing sternal fracture ACT 112: Negative or not required by law. Electronically signed by: Canelo Diaz M.D. 08/18/2020 12:05 PM
[2020-08-18] MEDS ORDERED: levoFLOXacin/D5W 500 MG/100 ML BAG IV STA (12:24)
[2020-08-18] MEDS ORDERED: ALBUT/IPRATROP 3MG/0.5MG NEB 3 ML VIAL NEB STA (12:24)
[2020-08-18] MEDS ORDERED: methylPREDNISolone 125 MG/2 ML VIAL IV STA (12:24)
[2020-08-18] MEDS ORDERED: CARBOHYDRATES FOR HYPOGLYCEMIA PO PRN (13:37)
[2020-08-18] MEDS ORDERED: GLUCOSE 40% GEL 15 GM TUBE PO PRN (13:37)
[2020-08-18] MEDS ORDERED: GLUCAGON FOR INJ 1 MG VIAL SQ PRN (13:37)
[2020-08-18] MEDS ORDERED: DEXTROSE 50% 50 ML SYRINGE IV PRN (13:37)
[2020-08-18] MEDS ORDERED: GLUCOSE 10 TABS/TUBE PO PRN (13:37)
--- NOTE | 2020-08-18 13:59 | History & Physical Report ---
Date of Service August 18, 2020 Assessment & Plan (1) Restrictive lung disease: Morbidly obese gentlemen that has been intolerant to CPAP at night time use. He is followed by pulmonary - Will schedule albuterol q4 hours for 24 hours and PRN nebs - Continue Umeclidinium/vilanterol - Steroids Methyl pred 40 q6- did get 60mg load in EMD with some improvment - Pulmonary rehab as outpatient being done through pulmonary office - Needs to get to CPAP or other support overnight to decrease his mortality as well as weight loss - - Evaluate functional use of his inhalers- ensure patient is able to use correctly to optimize medication delivery. Tracheal malacia followed with pulmonary- poor treatment candidate, symptom control- weight loss, CPAP, or AVAPS. (2) Bronchitis: Bronchitis - patient with airway inflammation that maybe making his unde rlying tracheal malacia worse especially with coughing and irritation - steroids as above - Continue inhalers and nebulizers - CPAP at night if he will wear it - Oxygen PRN - Cough supression - Levaquin PO can likely stop in 3-5 days no acute infective process- patient unsure why he is allergic to Azithro (3) Chronic diastolic congestive heart failure, NYHA class 3: Currently stable- - Continue metoprolol - Continue furosemide 40 daily - Hold Triamterene - can likely restart in morning- follow kidney function overnight and evaluate UA for protein (4) Chronic kidney disease, stage III (moderate): At baseline [employer] actually lowest it has been in awhile - continue to keep patient euvolemic to negative fluid balance - maintain BP maps >65 - avoid nephrotoxic medications and if needed miminize exposure time (5) Atrial fibrillation: Rate controlled no acute needs - Continue metoprolol - Continue Apixaban (6) Diabetes mellitus, type II, insulin dependent: Goal BG <180 - Continue Basal - Insulin sliding scale CF 20, ratio 7 - A1C in morning - BG likely to increase while on steroids (7) CAD (coronary artery disease): 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 Cardiac catheterization 2016 showed severe 99 % mid RCA in stent restenoses which was treated with drug-eluting stent. LAD and circumflex stents were patent there was mild to moderate proximal LAD and ostial circumflex disease and severe small ostial diagonal disease (unchanged from prior). (8) Hypertension: As above- Not well controlled while evaluating in EMD, but appears well controlled on his office visits - Will follow while in house, will likely come down with change in environment (9) Urinary retention: No acute needs, patient has not noticed a difference with his inhalers either. - Bladder scan post voids - PRN bladder scan - follows urology has follow up coming in future- discussing TURP and Rezum. History of Present Illness Chief Complaint: dyspnea Primary Care Provider: Bon Macias MD 75 YOM with past medical history of morbid obesity, CKD III, HFrEF (45-50%), restrictive lung disease, chronic dyspnea, Vitamin D deficiency, bladder cancer, urinary retention, CAD with stents 2013, afib on Apixaban. Patient comes in today for worsening dyspnea and wheezing that has been going on for the past week, but over the past 2-3 days has gotten worse. The patient dyspnea and wheeze is associated with increased dry, deep raspy cough. He denies any association with fevers, chills, sinus congestion or drainage. He is able to still lay flat when sleeping and is not conversational dyspneic. His dyspnea is associated with reduction in length and time he is able to walk. Currently he feels he is only able to go about 100 yards before he has to take a break and ca n catch breath "in a couple of minutes". If he has a coughing spell, it makes his dyspnea and wheezing worse and the build on each other. Allergies Allergy/AdvReac Type Severity Reaction Status Date / Time Penicillins Allergy Severe FACIAL Verified 07/13/20 13:33 SWELLING AND RASH amoxicillin Allergy Intermediate RASH Verified 07/13/20 13:33 clavulanic acid Allergy Intermediate RASH Verified 07/13/20 13:33 cholestyramine Allergy Unknown per nephro Verified 07/13/20 13:33 note niacin Allergy Unknown per nephro Verified 07/13/20 13:33 note phenylephrine Allergy Unknown per nephro Verified 07/13/20 13:33 note Ccrzorz-Jkl-Kue Reductase Allergy Unknown JOINT Verified 07/13/20 13:33 Inhibitor STIFFNESS AND PAIN azithromycin Allergy PER NEPHRO Verified 07/13/20 13:33 NOTE Home Medications Medication Instructions Recorded Confirmed Type dorzolamide [Trusopt] 1 drp OPB BID 03/13/18 08/18/20 History glucosamine sulfate [Glucosamine] 2 tabs PO QAM 03/13/18 08/18/20 History latanoprost [Xalatan] 1 drp OPB PM 03/13/18 08/18/20 History magnesium chloride [Mag 64] 64 mg PO QAM 03/13/18 08/18/20 History nitroglycerin 0.4 mg sublingual 0.4 mg SUBLINGUAL UD PRN #1 btl 03/12/19 08/18/20 Rx tablet OneTouch UltraSoft Lancets #400 ea NS 05/23/19 08/18/20 Rx insulin syringe-needle U-100 0.5 #300 ea 08/13/19 08/18/20 Rx mL 31 gauge x 5/16" dutasteride 0.5 mg capsule 0.5 mg PO DAILY #90 cap 08/14/19 08/18/20 Rx apixaban 5 mg tablet 5 mg PO BID #60 tab 08/15/19 08/18/20 Rx triamterene 37.5 1 cap PO QAM #90 cap 10/07/19 08/18/20 Rx mg-hydrochlorothiazide 25 mg capsule Portable Oxygen #1 ea 11/25/19 08/18/20 Rx insulin aspart U-100 100 unit/mL 60 unit SUBCUT DAILY ml 12/25/19 08/18/20 History subcutaneous solution furosemide 40 mg tablet 40 mg PO DAILY #180 tab 01/08/20 08/18/20 Rx pantoprazole 40 mg tablet,delayed 40 mg PO DAILY #30 tab 01/14/20 08/18/20 Rx release donepezil 10 mg tablet 10 mg PO QAM #90 tab 02/10/20 08/18/20 Rx sertraline 25 mg tablet 25 mg PO DAILY #90 tab 02/10/20 08/18/20 Rx metoprolol succinate 100 mg 100 mg PO QAM #90 tab 02/12/20 08/18/20 Rx tablet,extended release 24 hr clopidogrel 75 mg tablet 75 mg PO Q2D #45 tab 03/01/20 08/18/20 Rx BD Ultra-Fine Short Pen Needle 31 #100 ea NS 05/25/20 08/18/20 Rx gauge x 5/16" OneTouch Ultra Blue Test Strip #400 ea NS 06/07/20 08/18/20 Rx Tresiba FlexTouch U-100 100 56 unit SQ DAILY #60 ml NS 06/07/20 08/18/20 Rx unit/mL (3 mL) subcutaneous pen potassium chloride 20 mEq 20 meq PO QAM PRN #60 tab 06/16/20 08/18/20 Rx tablet,extended release umeclidinium 62.5 mcg-vilanterol 1 inh INHALATION DAILY #60 ea 07/13/20 08/18/20 Rx 25 mcg/actuation powdr for inhalation hydralazine 50 mg tablet 100 mg PO QID 90 Days #720 tab 07/23/20 08/18/20 Rx albuterol sulfate [Ventolin HFA] 2 puff INHALATION DAILY 08/18/20 08/18/20 History tamsulosin 0.4 mg PO QPM 08/18/20 08/18/20 History Past Med/Surg History Medical History Alzheimer disease on donepezil Anticoagulant long-term use Atrial fibrillation Bladder cancer 2015--sx CAD (coronary artery disease) Cancer of skin of back Cancer of skin of left ear Carotid art occ w/o infarc Chronic kidney disease, stage III (moderate) Degenerative disc disease Diabetes mellitus with neurological manifestations, uncontrolled Diabetes mellitus, type II, insulin dependent Diabetic nephropathy Diabetic peripheral neuropathy Diabetic retinopathy, nonproliferative, mild Dysphagia causing pulmonary aspiration with swallowing GERD (gastroesophageal reflux disease) Glaucoma Hearing deficit History of colon polyps Hyperlipidemia Hypertension Low back pain Malignant neoplasm of bladder Microscopic hematuria Mycotic toenails Odynophagia Pain in thoracic spine Peripheral neuropathy bilt feet Proteinuria Tubular adenoma of colon Urethral stricture Urinary retention Vertigo Vitamin D deficiency Surgical History H/O heart artery stent (2014) 2015 x4 stents @ [facility] History of bilateral cataract extraction History of bladder surgery 2014 bladder tumor removal @ [facility] History of cardiac cath x3--2011, 2014, 2017 @ [facility] History of colonoscopy History of tonsillectomy and adenoidectomy Presence of stent in LAD coronary artery (2011) S/P right coronary artery (RCA) stent placement (2016) Family History Mother Family history of diabetes mellitus COPD (chronic obstructive pulmonary disease) Father Family history of diabetes mellitus Acute appendicitis Brother Hx of CABG Sister Heart disease Other Coronary heart disease Denies family history of Kidney disease Social History Smoking Status: Former smoker Age Quit Using Tobacco: 29; Number of Years Since Quit: 44; Second Hand Exposure: No; Do You Dip or Chew Tobacco: No; Tobacco Cessation Education Requested by Patient: No Hx Alcohol Use: No Hx Substance Use: No Preferred Language: Lao Communication Ability: Effective Visual Impairment: No Limitations Hearing Ability: Hard of Hearing Husbandry Technician Required: No Beliefs That Will Affect Care: None Current Living Situation: Spouse current occupational status: retired Other Information That Helps Us Care for You: No Feels Safe at Home: Yes Safety Concerns: Feels Safe At This Time Seatbelt Use: always Assistive Devices: Cane and Glasses Review of Systems Review of Systems: REVIEW OF SYSTEMS: Constitutional: No fever, sweats or chills Eyes: No diplopia, no worsening or blurred vision ENT: (+) difficulty hearing, no trouble swallowing Respiratory: (+) cough, dyspnea at rest or on exertion (-) sputum, Cardiovascular: No chest pain, tightness or palpitations Abdomen: No pain, nausea, vomiting, diarrhea or constipation Musculoskeletal: No joint pain, calf pain, swelling Neurologic: No weakness, numbness/tingling, or balance problems Psychiatric: No anxiety or depression Skin: No rash or itch Physical Exam Physical Exam: PHYSICAL EXAM: General: awake, alert, no apparent distress Head: Normocephalic, atraumatic ENT: PERRL, EOMI, no pharyngeal exudate, mucous membranes moist Neuro: AAO x 3, speech clear and appropriate, strength intact bilaterally 5/5, sensation intact and equal all extremities and dermatomes, no pronator drift Chest: equal rise and fall of the chest, no accessory muscle use, no heaves or thrills, expiratory bronchovesicular wheeze, on room air during exam. Patient is on oxygen at home PRN. No fremitus Cardiac: Regular rate and rhythm, telemetry reviewed, skin warm dry, cap refill <3 seconds, peripheral pules +2 no JVD, no murmur, trace lower extremity edema GI: NABS x 4 quadrants, soft, nontender to palpation, no rebound, guarding or tenderness : Spontaneously voiding, no pain, no CVA tenderness, Extremities: Normal inspection, no peripheral edema or erythema, calfs nontender to palpation Psych: Normal mood and affect Skin: no rash or erythema, onychomycosis bilaterally. Results & Data Results & Data ([facility]) Vital Signs (Past 12 Hours) Vital Signs Temp Pulse Pulse Resp BP Pulse Ox 08/18/20 13:00 87 18 152/95 H 94 08/18/20 12:45 84 16 96 08/18/20 12:30 77 23 161/72 H 08/18/20 12:01 92 H 22 170/95 H 95 08/18/20 12:00 83 18 94 08/18/20 11:33 81 17 150/91 H 89 L 08/18/20 11:31 94 08/18/20 11:00 82 21 158/69 H 95 08/18/20 10:58 100 H 22 95 08/18/20 10:51 81 18 96 08/18/20 10:31 88 14 136/74 92 08/18/20 10:30 94 H 20 94 08/18/20 10:09 78 24 149/64 H 94 08/18/20 09:58 36.4 C L 86 26 H 131/83 95 Laboratory Results Abnormal lab results 08/18/20 08/18/20 08/18/20 Range/Units 10:53 10:53 10:53 RDW Std Deviation 46.5 H (36.4-46.3) fL Lymph # (Auto) 1.09 L (1.2-3.4) K/uL [place] # (Auto) 0.64 H (0.11-0.59) K/uL ABG HCO3 30 H (19-24) mmol/L ABG O2 Saturation 96.5 H (90-95) % ABG Base Excess 5.3 H (-9-1.8) mEq/L BUN 38 H (7-18) mg/dl Creatinine 2.05 H (0.6-1.4) mg/dl Glucose 166 H (70-99) mg/dl Albumin 3.3 L (3.4-5.0) gm/dl Diagnostic Findings CT chest diagnostic wo con CLINICAL HISTORY: Progressive shortness of breath and wheezing COMPARISON STUDY: 11/27/2017, chest x-ray dated 08/18/2020 CT DOSE: 858.55 mGy.cm TECHNIQUE: CT of the thorax was performed from the thoracic inlet to the lung bases. Images are reviewed in the axial, sagittal, and coronal planes. IV contrast was not administered for this examination. A dose lowering technique was utilized adhering to the principles of ALARA. FINDINGS: Thyroid: Imaged portions of the thyroid gland are normal in appearance. Thoracic aorta: The thoracic aorta is normal in course and caliber, noting standard 3 vessel arch anatomy. Heart: The heart is the upper limits of normal in size. There is a trace pericardial effusion. There are moderately extensive coronary artery calcifications. Lungs and pleural spaces: There are no pleural effusions. There is no pneumothorax. There is no acute parenchymal consolidation. There are minor basilar atelectatic changes. There are a few scattered pulmonary micronodules present. There are no suspicious pulmonary masses. Mediastinum: There is an 11 mm right paratracheal lymph node demonstrating a normal fatty hilum. This is likely benign. Serenity: There is no evidence of pathologic hilar adenopathy given the limitations of a noncontrast study. Axilla: There is no evidence of pathologic axillary lymphadenopathy. Upper abdomen: Hepatic hypodensity in the region of the falciform ligament, likely represents focal fat. Skeletal structures: There is a healing sternal fracture. IMPRESSION: 1. No evidence of focal pulmonary consolidation 2. No suspicious pulmonary masses 3. Healing sternal fracture XR chest 1V portable CLINICAL HISTORY: Shortness of breath COMPARISON STUDY: 07/27/2020 FINDINGS: The cardiac and mediastinal contours are normal. There is no evidence of focal pulmonary consolidation. There is no evidence of failure. No pleural effusions are visualized.[There is a vague left midlung zone opacity, likely representing a summation. If symptoms persist, additional imaging could be obtained in follow-up. IMPRESSION: 1. Vague left midlung zone opacity, likely representing a summation. 2. No evidence of lobar consolidation. No evidence of failure Medications Administered Discontinued Medications Albuterol (Albut/Ipratrop 3mg/0.5mg Neb 3 Ml Vial) 3 ml INH NOW STA Stop: 08/18/20 10:20 Last Admin: 08/18/20 10:50 Dose: 3 ml Documented by: [id number] Albuterol (Albut/Ipratrop 3mg/0.5mg Neb 3 Ml Vial) 3 ml NEB NOW STA Stop: 08/18/20 12:25 Last Admin: 08/18/20 12:45 Dose: 3 ml Documented by: [id number] Levofloxacin/Dextrose (Levaquin/D5w) 500 mg in 100 mls @ 100 mls/hr IV NOW STA Stop: 08/18/20 13:23 Last Infusion: 08/18/20 13:57 Dose: 0 mls/hr Documented by: [id number] Admin: 08/18/20 12:35 Dose: 100 mls/hr Documented by: [id number] Methylprednisolone (Methylprednisolone 125 Mg/2 Ml Vial) 60 mg IV NOW STA Stop: 08/18/20 12:25 Last Admin: 08/18/20 12:36 Dose: 60 mg Documented by: [id number] ECG Additional Comments: T/QTc 392/449 m Atrial fibrillation Possible Anterior infarct , age undetermined Abnormal ECG When compared with ECG of 27-JUL-2020 14:28, Nonspecific T wave abnormality, worse in Lateral leads Code Status & VTE Plan VTE Prophylaxis Plan VTE Prophylaxis will be ordered: Yes Supervising Physician Co-Signing Physician Notes Attending Attestation: Pt seen/examined, chart reviewed, care plan d/w DELVIN Dalton. I agree w/ the vivas components of his documentation. 75yo male with CAD, permanent a.fib on eliquis, chronic systolic/diastolic CHF, CKD stage 3, tracheomalacia, restrictive lung disease, morbid obesity, T2DM - presents with 1 week of worsening cough/wheezing/dyspnea/congestion. CT chest without pneumonia. COVID/flu negative. Not hypoxic at time of presentation. PMH, PSH, allergies, meds, sochx, famhx - reviewed VSS gen - sitting in chair, audible wheezing, obese neck - no JVD heart - irregular, regular rate, s1 s2 lungs - diffuse end-exp wheezing b/l, no rales abd - soft NT ND BS+ ext - no edema labs reviewed; Cr [address] chest/cxr reviewed EKG - a.fib A/P: Acute bronchitis in setting of severe restrictive lung disease & tracheomalacia. Permanent a.fib - controlled. Morbid obesity - BMI 40. CKD stage 3 - baseline Cr low 2's. Chronic systolic/diastolic CHF - compensated. CAD - no ischemic symptoms. T2DM - uncontrolled; last a1c 01/2020 >7%. Anticipate BSGs will rise with steroids. Plan - IV steroids, nebs, incentive braeden/flutter valve, mucolytics, cont usual home inhalers. Reasonable to cont levaquin 500mg daily that was started in ER. a1c in am. basal - bolus insulin with adjustments as needed. Colten Basurto MD PG Care Time/CCT Total # of Minutes Spent Total Time Spent with Patient: Total time spent is greater than 50% in coordination of care (as documented) at patient's floor/unit and/or counseling patient: Coding Level of Care Code 43952 Initial Inpt Care Lvl 3 Diagnoses Restrictive lung disease J98.4 Bronchitis J40 Chronic diastolic congestive heart failure, NYHA class 3 I50.32 Chronic kidney disease, stage III (moderate) N18.30 Chronic kidney disease stage 3 subtype: unspecified whether 3a or 3b Atrial fibrillation I48.20 Atrial fibrillation type: unspecified chronic Diabetes mellitus, type II, insulin dependent E11.9; Z79.4 CAD (coronary artery disease) I25.10 Associated angina: without angina Coronary Disease-Associated Artery/Lesion type: [place] artery [place] vs. transplanted heart: [place] heart Hypertension I10 Hypertension type: essential hypertension Urinary retention R33.9 (1) Chronic kidney disease, stage III (moderate) Chronic kidney disease stage 3 subtype: unspecified whether 3a or 3b Qualified Code(s): N18.30 - Chronic kidney disease, stage 3 unspecified (2) CAD (coronary artery disease) Associated angina: without angina Coronary Disease-Associated Artery/Lesion type: [place] artery [place] vs. transplanted heart: [place] heart Qualified Code(s): I25.10 - Atherosclerotic heart disease of [place] coronary artery without angina pectoris (3) Atrial fibrillation Atrial fibrillation type: unspecified chronic Qualified Code(s): I48.20 - Ch ronic atrial fibrillation, unspecified (4) Hypertension Hypertension type: essential hypertension Qualified Code(s): I10 - Essential (primary) hypertension
--- NOTE | 2020-08-18 14:29 | Electrocardiogram Report ---
Test Reason : Blood Pressure : / mmHG Vent. Rate : 079 BPM Atrial Rate : 468 BPM P-R Int : 000 ms QRS Dur : 084 ms QT Int : 392 ms P-R-T Axes : 000 001 026 degrees QTc Int : 449 ms Poor data quality, interpretation may be adversely affected Atrial fibrillation Possible Anterior infarct , age undetermined Abnormal ECG When compared with ECG of 27-JUL-2020 14:28, No significant change Confirmed by Gideon Mcfarland ([id number]) on 08/18/2020 2:29:11 PM Referred By: REFERRED SELF Confirmed By:Gideon Mcfarland
[2020-08-18] MEDS ORDERED: INSULIN ASPART 100 UNITS/ML 3 ML PEN SC SCH (16:30)
[2020-08-18] MEDS ORDERED: MAGNESIUM HYDROXIDE SUSP 30 ML UDC PO PRN (17:36)
[2020-08-18] MEDS ORDERED: ALUMINUM/MAGNESIUM SUSP 30 ML UDC PO PRN (17:36)
[2020-08-18] MEDS ORDERED: NITROGLYCERIN SL 0.4 MG/TAB TAB SL PRN (17:36)
[2020-08-18] MEDS ORDERED: ALBUTEROL HFA 8 GM INHALER INH SCH (17:36)
[2020-08-18] MEDS ORDERED: ACETAMINOPHEN 325 MG TAB PO PRN (17:36)
[2020-08-18] MEDS ORDERED: POLYETHYLENE (MIRALAX) 17 GM PACK PO PRN (17:36)
[2020-08-18] MEDS ORDERED: ONDANSETRON INJ 2 MG/ML 2 ML VIAL IV PRN (17:36)
[2020-08-18] MEDS ORDERED: ALBUTEROL HFA 8 GM INHALER INH PRN (17:56)
[2020-08-18] MEDS ORDERED: PNEUMOCOCCAL ADMINISTRATION CHARGE ONE (18:03)
[2020-08-18] MEDS: INSULIN ASPART 100 UNITS/ML 3 ML PEN SC SCH ×2 (19:14→21:11)
[2020-08-18] MEDS: hydrALAZINE TAB 50 MG TAB PO SCH ×2 (19:15→21:18)
[2020-08-18] MEDS: ADVANCED PROBIOTIC 1250 MG CAPSULE PO SCH (19:15)
[2020-08-18] MEDS: ALBUT/IPRATROP 3MG/0.5MG NEB 3 ML VIAL NEB SCH (19:25)
[2020-08-18] MEDS ORDERED: PNEUMOCOCCAL POLYSACCHARIDES 25 MCG/0.5 ML VIAL/SYR IM ONE (20:00)
[2020-08-18] MEDS ORDERED: INSULIN HUMAN REGULAR PER UNIT 10 UNITS in SYRINGE 9.9 ML IV ONE (21:00)
[2020-08-18] MEDS ORDERED: TAMSULOSIN HCL 0.4 MG CAP PO SCH (21:00)
[2020-08-18] MEDS ORDERED: INSULIN GLARGINE SOLOSTAR 100 UNITS/ML 3 ML PEN SC SCH (21:00)
[2020-08-18] MEDS ORDERED: LATANOPROST 0.005% OP SOLN 2.5 ML BTL OPB SCH (21:00)
[2020-08-18] MEDS: methylPREDNISolone 40 MG in SYRINGE 0 ML IV SCH (21:18)
[2020-08-18] MEDS: guaiFENesin 600 MG TABCR PO SCH (21:18)
[2020-08-18] MEDS: APIXABAN 5 MG TABLET PO SCH (21:18)
[2020-08-18] MEDS: DORZOLAMIDE HCL 2% OPH SOLN 10 ML BTL OPB SCH (21:19)
[2020-08-19] MEDS: methylPREDNISolone 40 MG in SYRINGE 0 ML IV SCH ×2 (05:23→13:13)
[2020-08-19] MEDS: ALBUT/IPRATROP 3MG/0.5MG NEB 3 ML VIAL NEB SCH ×3 (07:15→15:15)
[2020-08-19 09:00] LABS: Estimated Average Glucose 220 mg/dl; Hemoglobin A1C 9.3 % (4.5-5.6)
[2020-08-19] MEDS ORDERED: MAGNESIUM CHLORIDE 64MG DELAYED REL TAB PO SCH (09:00)
[2020-08-19] MEDS ORDERED: FUROSEMIDE 40 MG TAB PO SCH ×2 (09:00)
[2020-08-19] MEDS ORDERED: POTASSIUM CHLORIDE CRTAB 20 MEQ TABCR PO SCH (09:00)
[2020-08-19] MEDS ORDERED: UMECLIDINIUM/VILANTEROL 62.5/25MCG 7 PUFFS/INHALER INH SCH (09:00)
[2020-08-19] MEDS ORDERED: PANTOprazole 40 MG TAB PO SCH (09:00)
[2020-08-19] MEDS ORDERED: METOPROLOL SUCC 50MG EXT REL TAB PO SCH (09:00)
[2020-08-19] MEDS ORDERED: INSULIN GLARGINE SOLOSTAR 100 UNITS/ML 3 ML PEN SC SCH ×3 (09:00→21:00)
[2020-08-19] MEDS ORDERED: SERTRALINE HCL 50 MG TABLET PO SCH (09:00)
[2020-08-19] MEDS ORDERED: PHARMACY GLYCEMIC MGMT CONSULT PRN (09:26)
[2020-08-19 09:28] LABS: BUN Creatinine Ratio 19.7 (10-20); Calcium 9.5 mg/dl (8.5-10.1); Creatinine Clr Calc Pharmacy 34.8 ml/min; Est GFR (African American) 33.4; Est GFR (Non-African American) 28.8; Potassium 3.9 mmol/L (3.5-5.1)
[2020-08-19] MEDS: hydrALAZINE TAB 50 MG TAB PO SCH ×3 (09:28→16:47)
[2020-08-19] MEDS: DORZOLAMIDE HCL 2% OPH SOLN 10 ML BTL OPB SCH (09:28)
[2020-08-19] MEDS: guaiFENesin 600 MG TABCR PO SCH (09:29)
[2020-08-19] MEDS: APIXABAN 5 MG TABLET PO SCH (09:29)
[2020-08-19] MEDS: ADVANCED PROBIOTIC 1250 MG CAPSULE PO SCH (09:29)
[2020-08-19] MEDS: INSULIN ASPART 100 UNITS/ML 3 ML PEN SC SCH ×3 (09:32→18:03)
[2020-08-19 09:39] LABS: Beta-Hydroxybutyrate 2.9 mg/dl (0.2-2.81)
--- NOTE | 2020-08-19 10:23 | Pharmacy Report ---
Pharmacy Glycemic Short Note 2 - Date of Service August 19, 2020 - Glycemic Short BSG Results (Last 24 hours): 08/18/20 08/18/20 08/18/20 10:53 17:41 20:38 Glucose 166 H POC Glucose 337 H* 409 H* 08/18/20 08/18/20 08/19/20 20:40 23:05 08:08 Glucose 308 H* POC Glucose 387 H* 277 H 08/19/20 08/19/20 08:43 08:45 Glucose POC Glucose 315 H* 326 H* OUTPATIENT ANTIDIABETIC REGIMEN (per discussion with , however complicance with regimen uncertain): * Tresiba (insulin degludec) 56 units Q HS * Novolog with meals: 13 units breakfast + 20 units lunch + 20-26 units dinner as well as sliding scale coverage * A1c = 9.3% ASSESSMENT: * Type 2 diabetic admitted for worsening SOB, wheezing in the setting of RLD and suspected bronchitis * Patient is a type 2 diabetic who follows with S Lynn, however last visit 12/2019 and he has cancelled multiple f/u appointments * has reported his BSGs have been running high for over a month (upper 200s and 300s). She does not assist him with insulin administration, nor does she observe the doses he administers. She is uncertain if he misses any doses. * Per documentation by S Lynn, patient has been resistant to Tresiba dose increases due to fear of lows (low 100s reportedly causes hypoglycemia symptoms) and has also had concerns regarding medication costs. * BSGs are very high at this time, however no AG acidosis noted on AM chemistry. Pt continues on high dose IV steroids at this time. * Will "stress" his outpatient doses and administer Lantus as long acting component BID to allow greater dosing flexibility. Novolog will be utilized 6x daily (ACHS + x2 checks overnight) until glycemic control improved. PLAN FOR INPATIENT GLYCEMIC CONTROL: * Basal insulin * Lantus 20 units SQ x 1 now, then 20 units Q AM + 60 units Q PM * Bolus insulin * NovoLog per scale ACHS and 00, 04 * Goal Range: Low 110 mg/dL - High 140 mg/dL * Correction Factor: 10 mg/dL/unit * Nutritional / Prandial insulin per carb ratio of 1 unit per 3 grams CHO consumed PLAN FOR DISCHARGE: * A1c 9.3% is above goal. It appears that S Lynn's office had been working w ith him to achieve better glycemic control however he has not followed up recently. Given uncertain compliance and lack of food log book it is difficult to provide discharge recs. Would defer adjustments to patient's endocrinology service
[2020-08-19] MEDS ORDERED: levoFLOXacin 250 MG TABLET PO SCH (11:00)
[2020-08-19] MEDS ORDERED: INSULIN HUMAN REGULAR PER UNIT 6 UNITS in SYRINGE 5.94 ML IV ONE (12:45)
--- NOTE | 2020-08-19 18:12 | Discharge Summary ---
Date of Service August 19, 2020 Admission HPI Per Admitting Provider 75 YOM with past medical history of morbid obesity, CKD III, HFrEF (45-50%), restrictive lung disease, chronic dyspnea, Vitamin D deficiency, bladder cancer, urinary retention, CAD with stents 2013, afib on Apixaban. Patient comes in today for worsening dyspnea and wheezing that has been going on for the past week, but over the past 2-3 days has gotten worse. The patient dyspnea and wheeze is associated with increased dry, deep raspy cough. He denies any association with fevers, chills, sinus congestion or drainage. He is able to still lay flat when sleeping and is not conversational dyspneic. His dyspnea is associated with reduction in length and time he is able to walk. Currently he feels he is only able to go about 100 yards before he has to take a break and can catch breath "in a couple of minutes". If he has a coughing spell, it makes his dyspnea and wheezing worse and the build on each other. Principal Diagnosis Acute COPD Exacerbation Discharge Exam Constitutional WD/WN, vitals as above + obese Eyes PERRL, conjunctivae normal, anicteric sclerae ENMT external ear and nose normal, oropharynx normal Neck trachea midline, no thyromegaly Respiratory normal respiratory effort, lungs clear to auscultation Cardiovascular RRR, no murmur, no edema Chest (Breasts) Chest: normal inspection of chest Gastrointestinal (Abdomen) normal bowel sounds, soft, nontender, no hepatosplenomegaly Musculoskeletal Extremities: extremities normal to inspection; no cyanosis and no clubbing Skin no rashes, warm and dry Neurologic moves all extremities and awake; no focal motor deficits Psychiatric Orientation: alert, oriented to person and cooperative Lymphatic no lymphedema Discharge Data Allergies Allergy/AdvReac Type Severity Reaction Status Date / Time Penicillins Allergy Severe FACIAL Verified 08/26/20 13:09 SWELLING AND RASH amoxicillin Allergy Intermediate RASH Verified 08/26/20 13:09 clavulanic acid Allergy Intermediate RASH Verified 08/26/20 13:09 cholestyramine Allergy Unknown per nephro Verified 08/26/20 13:09 note niacin Allergy Unknown per nephro Verified 08/26/20 13:09 note phenylephrine Allergy Unknown per nephro Verified 08/26/20 13:09 note [id number]-Scf-Khd Reductase Allergy Unknown JOINT Verified 08/26/20 13:09 Inhibitor STIFFNESS AND PAIN azithromycin Allergy PER NEPHRO Verified 08/26/20 13:09 NOTE Consultations 08/18/20 12:39 ED Decision to Admit Stat Ordered Studies 08/18/20 11:31 CT chest diagnostic wo con Stat Chest X-Ray 08/18/20 10:19 XR chest 1V portable CLINICAL HISTORY: Shortness of breath COMPARISON STUDY: 07/27/2020 FINDINGS: The cardiac and mediastinal contours are normal. There is no evidence of focal pulmonary consolidation. There is no evidence of failure. No pleural effusions are visualized.[There is a vague left midlung zone opacity, likely rep resenting a summation. If symptoms persist, additional imaging could be obtained in follow-up. IMPRESSION: 1. Vague left midlung zone opacity, likely representing a summation. 2. No evidence of lobar consolidation. No evidence of failure ACT 112: Negative or not required by law. Electronically signed by: Canelo Diaz M.D. 08/18/2020 10:[address] 08/18/20 11:31 CT chest diagnostic wo con CLINICAL HISTORY: Progressive shortness of breath and wheezing COMPARISON STUDY: 11/27/2017, chest x-ray dated 08/18/2020 CT DOSE: 858.55 mGy.cm TECHNIQUE: CT of the thorax was performed from the thoracic inlet to the lung bases. Images are reviewed in the axial, sagittal, and coronal planes. IV contrast was not administered for this examination. A dose lowering technique was utilized adhering to the principles of ALARA. FINDINGS: Thyroid: Imaged portions of the thyroid gland are normal in appearance. Thoracic aorta: The thoracic aorta is normal in course and caliber, noting standard 3 vessel arch anatomy. Heart: The heart is the upper limits of normal in size. There is a trace pericardial effusion. There are moderately extensive coronary artery calcifications. Lungs and pleural spaces: There are no pleural effusions. There is no pneumothorax. There is no acute parenchymal consolidation. There are minor basilar atelectatic changes. There are a few scattered pulmonary micronodules present. There are no suspicious pulmonary masses. Mediastinum: There is an 11 mm right paratracheal lymph node demonstrating a normal fatty hilum. This is likely benign. Serenity: There is no evidence of pathologic hilar adenopathy given the limitations of a noncontrast study. Axilla: There is no evidence of pathologic axillary lymphadenopathy. Upper abdomen: Hepatic hypodensity in the region of the falciform ligament, likely represents focal fat. Skeletal structures: There is a healing sternal fracture. IMPRESSION: 1. No evidence of focal pulmonary consolidation 2. No suspicious pulmonary masses 3. Healing sternal fracture ACT 112: Negative or not required by law. Electronically signed by: Canelo Diaz M.D. 08/18/2020 12:05 PM Diabetes Follow up Diabetes Follow-up Needed for HgbA1c >9% Hospital Course (1) Bronchitis: Bronchitis - patient with airway inflammation that maybe making his underlying tracheal malacia worse especially with coughing and irritation - steroids given and had significant improvement Not requiring O2, no wheezing, no cough, stable for discharge by the next day f/u with PULM - Continue home inhalers and nebulizers - Cough supression - Levaquin PO x 5 days given and prednisone burst (2) Restrictive lung disease: Morbidly obese gentlemen that has been intolerant to CPAP at night time use. He is followed by pulmonary - Continue Umeclidinium/vilanterol - Pulmonary rehab as outpatient being done through pulmonary office - Needs to get to CPAP or other support overnight to decrease his mortality as well as weight loss Tracheal malacia followed with pulmonary- poor treatment candidate, symptom control- weight loss, CPAP, or AVAPS. 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 Cardiac catheterization 2017 showed severe 99 % mid RCA in stent restenoses which was treated with drug-eluting stent. LAD and circumflex stents were patent there was mild to moderate proximal LAD and ostial circumflex disease and severe small ostial diagonal disease (unchanged from prior). (8) Hypertension: continue home meds BPs controlled (9) Urinary retention: No acute needs, patient has not noticed a difference with his inhalers either. - follows urology has follow up coming in future- discussing TURP and Rezum. Dispo-stable for dc to home Total Time Total Time Spent Total Time Spent (In Minutes): 35 min Total Time Includes: Examination of the Patient, Discharge Planning and Medication Reconciliation Discharge Plan Discharge Items Patient Disposition: Home - Self-Care Reason For Visit: ACUTE BRONCHITIS Discharge Diagnosis: Acute bronchitis Condition on Discharge: Good Activity: As commented below Exercise/Sports: Gradually increase as tolerated Non-emergency contact: Primary Care Provider and Coordinate Measuring Machine Programmer Call non-emergency contact if: you have any medication questions and your symptoms worsen Follow-up/Referrals: Delonte Macias MD [Primary Care Provider] - 08/26/20 1:10 pm (A follow up appt will be made for you with your PCP. A workers compensation legal secretary from [employer] will be calling you to give you the date and time. If you are unable to keep this appt, please call your PCP office [phone].) Caden Ervin MD [Physician] - 09/08/20 2:00 pm (Follow up within 2 weeks.) Diet: Carb Consistent or DM2 Addtl Attending Provider Instructions: Please finish out the course of prednisone 60 mg daily x 4 more days and an antibiotic called levofloxacin 250mg once daily x 4 more days. Continue using your home inhalers. You were not requiring oxygen here. Your blood sugars are higher because of the steroids you are taking. Please add on a morning dose of Tresiba 10 units for the next four days and continue following your sliding scale for the Novolog. Please call Kassandra Bailey's office tomorrow and let her know how your blood sugars are trending; she can give you guidance on what to do next. Follow up with your PCP as scheduled next week and with Dr. Ervin your Coordinate Measuring Machine Programmer within 2-3 weeks. Pending Studies at Discharge: No Stand-Alone Forms: My [employer] Medications and DC Order Prescriptions: Continued (DME) insulin syringe-needle U-100 [BD Insulin Syringe Ultra-Fine] 0.5 mL 31 gauge x 5/16" syringe See Rx Instructions .ROUTE .MEDSUPPLY Qty: 300 RF: 3 dutasteride 0.5 mg capsule 0.5 mg PO DAILY Qty: 90 RF: 3 pantoprazole 40 mg tablet,delayed release (DR/EC) 40 mg PO DAILY Qty: 30 RF: 5 metoprolol succinate 100 mg tablet extended release 24 hr 100 mg PO QAM Qty: 90 RF: 3 clopidogrel 75 mg tablet 75 mg PO Q2D Qty: 45 RF: 3 (DME) pen needle, diabetic [BD Ultra-Fine Short Pen Needle] 31 gauge x 5/16" needle See Rx Instructions .ROUTE .MEDSUPPLY Qty: 100 RF: 0 (DME) OneTouch Ultra Blue Test Strip Strip See Rx Instructions .ROUTE .MEDSUPPLY Qty: 400 RF: 3 Tresiba FlexTouch U-100 100 unit/mL (3 mL) insulin pen 56 unit SQ DAILY Qty: 60 RF: 3 potassium chloride 20 mEq tablet extended release 20 meq PO QAM PRN (Reason: Muscle Cramps from Lasix) Qty: 60 RF: 2 hydralazine 50 mg tablet 100 mg PO QID 90 Days Qty: 720 RF: 3 nitroglycerin [Nitrostat] 0.4 mg tablet, sublingual 0.4 mg Sublingual UD PRN (Reason: Chest Pain) Qty: 1 RF: 5 (DME) Portable Oxygen Misc See Rx Instructions .ROUTE .MEDSUPPLY Qty: 1 RF: 0 triamterene-hydrochlorothiazid 37.5-25 mg capsule 1 cap PO QAM Qty: 90 RF: 3 Hold Instructions: Taking Lasix daily donepezil 10 mg tablet 10 mg PO QAM Qty: 90 RF: 6 Eliquis 5 mg tablet 5 mg PO BID Qty: 60 RF: 2 insulin aspart U-100 [Novolog U-100 Insulin aspart] 100 unit/mL solution 60 unit subcut DAILY RF: 0 Anoro Ellipta 62.5-25 mcg/actuation blister with device 1 inh inhalation DAILY Qty: 60 RF: 2 (DME) lancets [OneTouch UltraSoft Lancets] Misc See Rx Instructions .ROUTE .MEDSUPPLY Qty: 400 RF: 3 furosemide 40 mg tablet 40 mg PO DAILY Qty: 180 RF: 3 latanoprost [Xalatan] 0.005 % Drops 1 drp OPB PM RF: 0 glucosamine sulfate [Glucosamine] 500 mg Tablet 2 tabs PO QAM RF: 0 dorzolamide [Trusopt] 2 % Drops 1 drp OPB BID RF: 0 magnesium chloride [Mag 64] 64 mg Tablet,Delayed Release (Dr/Ec) 64 mg PO QAM RF: 0 albuterol sulfate [Ventolin HFA] 90 mcg/actuation HFA aerosol inhaler 2 puff inhalation DAILY RF: 0 tamsulosin 0.4 mg capsule 0.4 mg PO QPM RF: 0 No Action sertraline 50 mg tablet 50 mg PO DAILY Qty: 90 RF: 3 Discharge Orders: Discharge Order (Routine); Ordered 08/19/20 Ordered By: Ryann Maharaj/Other Patient Handouts: Levofloxacin tablets, Prednisone tablets Admission Data Admit Date/Time: 08/18/20 16:08 Attending Provider: Ryann Min Admit Provider: Colten Basurto Primary Care Provider: Delonte Macias Other Interventions: Discharge Summary Assessment (RN) Last Done: 08/19/20 17:58 Coding Level of Care Code 44519 OBS Care - Discharge Diagnoses Bronchitis J40 Restrictive lung disease J98.4 Chronic diastolic congestive heart failure, NYHA class 3 I50.32 Chronic kidney disease, stage III (moderate) N18.30 Chronic kidney disease stage 3 subtype: unspecified whether 3a or 3b Atrial fibrillation I48.20 Atrial fibrillation type: unspecified chronic Diabetes mellitus, type II, insulin dependent E11.9; Z79.4 CAD (coronary artery disease) I25.10 Associated angina: without angina Coronary Disease-Associated Artery/Lesion type: [place] artery [place] vs. transplanted heart: [place] heart Hypertension I10 Hypertension type: essential hypertension Urinary retention R33.9
[2020-08-19] MEDS ORDERED: CLOPIDOGREL BISULFATE 75 MG TAB PO SCH (21:00)
[2020-08-20] MEDS ORDERED: INSULIN ASPART 100 UNITS/ML 3 ML PEN SC SCH
[2020-08-20] MEDS ORDERED: INSULIN GLARGINE SOLOSTAR 100 UNITS/ML 3 ML PEN SC SCH (09:00)
== END 2020-08-19 18:51 | disposition home or self-care (01) ==
LOC: ED 09:55 → 3N 16:08 → SUATTDRO 16:08 → INTOOBSV 16:08 → 3N 17:08

== ENCOUNTER 2022-06-18 10:53 | Inpatient (IN) ==
[2022-06-18] MEDS ORDERED: SODIUM CHLORIDE 0.9% 1000ML 500 ML IV ONE (11:20)
[2022-06-18] MEDS ORDERED: methylPREDNISolone 125 MG/2 ML VIAL IV STA (11:20)
[2022-06-18] MEDS ORDERED: ALBUT/IPRATROP 3MG/0.5MG NEB 3 ML VIAL INH STA (11:20)
--- NOTE | 2022-06-18 11:35 | XRay Report ---
SINGLE VIEW CHEST CLINICAL HISTORY: Sepsis. FINDINGS: An AP, portable, upright chest radiograph is compared to study dated 01/27/2022 and correlat ed with chest CT dated 08/18/2020. The heart is noting atherosclerotic calcification of the thoracic ao rta. The pulmonary vasculature is noncongested. Chronic interstitial thickening is similar to previou s. There is bibasilar scarring/atelectasis. The lungs and pleural spaces are clear. No pneumothorax i s seen. The skeletal structures are osteopenic. The bony thorax is grossly intact. Arthritic change i s seen in the shoulders. IMPRESSION: Cardiomegaly with no acute cardiopulmonary abnormality identified. ACT 112: Negative or not required by law. Electronically signed by: Barney Evangelista M.D. 06/18/2022 11:34 AM
[2022-06-18] MEDS ORDERED: ACETAMINOPHEN 1,000 MG/100 ML VIAL IV STA (11:37)
--- NOTE | 2022-06-18 11:38 | Emergency Department Note ---
Impression & Plan Acute hypoxemic respiratory failure due to COVID-19, OLIVER (acute kidney injury), CKD (chronic kidney disease), History of restrictive lung disease ED Provider Note NAME: JAMIE CANO AGE: 77 SEX: M : 1945 ARRIVES VIA: Ambulance INFORMANT: Patient, ED PROVIDER(S): Demarcus Hong MD CHIEF COMPLAINT: Weakness, illness, fall MEDICAL DECISION MAKING: Patient presents for weakness illness and fall and was noted to be hypoxemic and was placed on supplemental 2 L nasal cannula. Blood works obtained along with sepsis protocols and empiric antibiotics. I did speak with pharmacy pharmacist Arabella would help discuss appropriate chest coverage given the patient's penicillin allergy. The patient does have a known history of diastolic heart failure and was given a small fluid bolus of 500 cc to start in addition to breathing treatments IV steroids and IV magnesium. Patient was noted to be COVID-positive. Patient did white count of 13. The patient was given Levaquin given the patient's penicillin allergy and lung disease with hypoxemic respiratory failure. Patient's hemoglobin is normal. Platelet count is normal. Patient's BNP is elevated. Patient is COVID- positive. He did receive methylprednisolone. Patient's blood gas is normal no acidosis patient's coags are unremarkable. Kidney function with a creatinine 2.8. This is around the patient's baseline but he has run anywhere from the high ones to mid twos. Patient did receive a small amount of IV fluids. Procalcitonin is not elevated. Initial lactate of 2.4. Repeated 2. Given the patient's hypoxemic respiratory failure and COVID illness I did speak with the on-call hospitalist Dr. Meyers and the patient was admitted to the medicine service. Critical Care: I have personally spent 55 minutes of critical care time in direct management of this patient. This includes bedside care, interpretation of diagnostic studies, and testing, discussion with consultants, patient, and family members, and other require inpatient management activities. This 55 minutes is in excess of all separately billable procedures. Prior /Outside records reviewed: Did review the patient's most recent pulmonary visit from January [address] Ervin. 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 Patient is to be on Trelegy inhaler with as needed albuterol. Patient reportedly is not compliant with Trelegy on a regular basis. Patient does have a history of tracheomalacia but Dr. Sarmiento was stating that tracheoplasty or tracheal stenting would be a possible treatment but does not think it is a good option given the patient's age and medical comorbidities. Patient had been on oxygen in the past but was able to tolerate a walk test at that time of 280 feet O2 saturation 91%. Patient does have a known history of A. fib on apixaban CKD stage III. Differential diagnosis: Sepsis, UTI, pneumonia, metabolic, electrolyte abnormalities, cardiac sources, intracerebral event, toxicologic, neurologic, as well as other pathologies. Diagnostics, as interpreted by me: ECG:A flutter with variable AV block, ventricular rate 105 normal QRS duration, normal axis nonspecific ST and T wave abnormality. A flutter has replaced A-fib from comparison January 27, 2022. Cardiac monitoring: An order was placed for continuous cardiac monitoring. The monitor shows a rate of 102 with irregularly irregular and tachycardic rhythm. Patient was placed on pulse oximetry Medical decision rules: None Imaging studies: See below HPI: Patient presents from home after a fall out of bed. This was reported by the as the patient does have a history of memory loss issues. The patient currently denies any chest pain shortness of breath headache or neck pain and has no abdominal pain no reported nausea vomiting or diarrhea. History may be limited given the patient's prior history of memory issues. EMS reported to nursing and nursing reported to me that the patient reportedly had fallen out of bed this morning and believes that he may have struck his head. There was no reported pain at that time. The patient does take Eliquis for known history of A. fib. PAST MEDICAL HISTORY: See Below PAST SURGICAL HISTORY: See Below SOCIAL HISTORY: See Below HOME MEDICATIONS: See Below ALLERGIES: See Below VITALS: See Below PHYSICAL EXAMINATION: GENERAL: Wearing a mask, non-toxic. Obese. Nasal cannula in place. EYE EXAM: Normal conjunctiva. PERRL, no anisocoria and EOM's grossly intact w/o pain. NECK: Supple, no nuchal rigidity, no adenopathy, non-tender. No signs of meningismus. FROM of the neck with good chin to chest and neck extension. No stridor. LUNGS: Rhonchi bilaterally more prominent in the right right chest. HEART: Irregularly irregular and tachycardic, no MRG. ABDOMEN: Abdomen soft, non-tender, normo-active bowel sounds, no masses, no rebound or guarding. BACK: No CVA TTP. SKIN: No rashes and no bruising. UPPER EXTREMITIES: Upper extremities are grossly normal. No TTP or obvious deformity. LOWER EXTREMITIES: Chronic venous stasis changes noted bilaterally. No TTP or obvious deformity. Negative Homans' sign bilaterally. NEURO EXAM: A&O x3, cranial nerves II-XII grossly intact, normal speech, moves all 4 extremities. Past Med/Surg History Medical History Alzheimer disease on donepezil Anticoagulant long-term use Atrial fibrillation metoprolol/apixaban Bladder cancer 2014--sx Bladder cancer BPH (benign prostatic hyperplasia) BPH with obstruction/lower urinary tract symptoms CAD (coronary artery disease) follows with Dr. Motley Cancer of skin of back removed Cancer of skin of left ear removed CHF (congestive heart failure) Chronic kidney disease, stage III (moderate) follows with Dr. Joseph COPD (chronic obstructive pulmonary disease) Degenerative disc disease Depression (Unknown) Diabetes mellitus, type II, insulin dependent Diabetic nephropathy Diabetic peripheral neuropathy Diabetic retinopathy, nonproliferative, mild WALL (dyspnea on exertion) Dysphagia causing pulmonary aspiration with swallowing GERD (gastroesophageal reflux disease) Glaucoma Hearing deficit History of colon polyps Hyperlipidemia Hypertension Leaking of urine On home O2 2 LPM PRN Surgical History H/O heart artery stent (2015) 2012 x 1 2015 x 3 2017 x 1 ( showed severe 99 % mid RCA in stent restenoses which was treated with drug-eluting stent) History of bilateral cataract extraction History of bladder surgery 2014 bladder tumor removal @ [facility] History of cardiac cath x3--2011, 2014, 2017 @ [facility] History of colonoscopy History of skin surgery removal of basal cell carcinoma from L side of face, 08/24/[address] Velazquez History of tonsillectomy and adenoidectomy Family History Mother Family history of diabetes mellitus COPD (chronic obstructive pulmonary disease) Lung cancer Father Family history of diabetes mellitus Acute appendicitis Brother Hx of CABG Myocardial infarction Sister Heart disease Myocardial infarction Other Coronary heart disease Denies family history of Ovarian cancer Prostate cancer Kidney disease Breast cancer Colorectal cancer Social History Smoking Status: Former smoker Tobacco Type: Cigarettes Age Started Using Tobacco: 14; Age Quit Using Tobacco: 29; packs per day: 1; Second Hand Exposure: No; Hx Alcohol Use: No Hx Substance Use: No Preferred Language: [place] Zealander Communication Ability: Impaired Visual Impairment: Limited Hearing Ability: 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 Beliefs That Will Affect Care: None marital status: Current Living Situation: Spouse current occupational status: retired current occupation: used to have an [employer] Feels Safe at Home: Yes Safety Concerns: Feels Safe At This Time Childhood Exposure to Second-Hand Smoke: Yes caffeine: Yes Dental Care, Regularly: No Physical Activity Frequency: Does not Exercise Seatbelt Use: always Sunscreen Use: No Assistive Devices: Cane and Walker Allergies Allergies Allergy/AdvReac Type Severity Reaction Status Date / Time Penicillins Allergy Severe FACIAL Verified 06/18/22 17:19 SWELLING AND RASH amoxicillin Allergy Intermediate RASH Verified 06/18/22 17:19 clavulanic acid Allergy Intermediate RASH Verified 06/18/22 17:19 cholestyramine Allergy Unknown per nephro Verified 06/18/22 17:19 note niacin Allergy Unknown per nephro Verified 06/18/22 17:19 note phenylephrine Allergy Unknown per nephro Verified 06/18/22 17:19 note Kqusgjv-PBC-DnV Reductase Allergy Unknown JOINT Verified 06/18/22 17:19 Inhibitor STIFFNESS [Gofgjmu-Lhr-Ksf Reductase AND PAIN Inhibitor] azithromycin Allergy PER NEPHRO Verified 06/18/22 17:19 NOTE Home Meds Home Medications Medication Instructions Recorded Confirmed dorzolamide 2 % eye drops (Trusopt) 1 drp OPB BID 03/13/18 06/18/22 glucosamine sulfate 500 mg tablet 2 tabs PO QAM 03/13/18 06/18/22 (Glucosamine) latanoprost 0.005 % eye drops 1 drp OPB PM 03/13/18 06/18/22 (Xalatan) magnesium chloride 64 mg 64 mg PO QAM 03/13/18 06/18/22 (magnesium chloride) tablet,delayed release (Mag 64) Portable Oxygen 09/28/21 06/14/22 budesonide 0.25 mg/2 mL suspension 0.25 mg inhalation BID PRN 09/28/21 06/18/22 for nebulization Shortness Of Breath Or Wheezing Previous Rx's Medication Instructions Recorded nitroglycerin 0.4 mg sublingual 0.4 mg sublingual UD PRN Chest 03/12/19 tablet (Nitrostat) Pain #1 btl OneTouch UltraSoft Lancets #400 ea 05/23/19 (lancets) insulin syringe-needle U-100 0.5 #300 ea 08/13/19 mL 31 gauge x 5/16" (BD Insulin Syringe Ultra-Fine) ipratropium 0.5 mg-albuterol 3 mg 3 ml inhalation Q8H PRN shortness 10/04/20 (2.5 mg base)/3 mL nebulization of breath or wheezing #180 mL soln nebulizers (Aeroneb Go Nebulizer) #1 ea 10/04/20 sertraline 100 mg tablet 150 mg PO DAILY 90 days #135 tabs 10/27/21 Discontinue DME #1 ea 12/29/21 albuterol sulfate 90 mcg/actuation 2 puff inhalation DAILY PRN 12/29/21 aerosol inhaler (Ventolin HFA) shortness of breath or wheezing #8.5 grams metoprolol succinate 100 mg 100 mg PO QAM #90 tabs 01/02/22 tablet,extended release 24 hr BD Ultra-Fine Short Pen Needle 31 #100 ea 01/17/22 gauge x 5/16" (pen needle, diabetic) clopidogrel 75 mg tablet 75 mg PO Q2D #45 tabs 01/17/22 hydralazine 50 mg tablet 100 mg PO QID 90 days #720 tabs 01/17/22 blood sugar diagnostic (OneTouch #400 ea 01/23/22 Ultra Test strips) insulin degludec 100 unit/mL (3 22 unit (0.22 mL) subcut QPM #15 mL 03/23/22 mL) subcutaneous pen (Tresiba FlexTouch U-100 insulin) potassium chloride 20 mEq 20 meq PO QAM PRN Muscle Cramps 03/30/22 tablet,extended release from Lasix #60 tabs furosemide 40 mg tablet 40 mg PO .COMPLEX Edema #240 tabs 04/13/22 fluticasone fur. 100 mcg-umeclid 1 inh inhalation DAILY #60 ea 04/24/22 62.5 mcg-vilant 25 mcg inhalat.powder (Trelegy Ellipta) apixaban 5 mg tablet (Eliquis) 5 mg PO BID #180 tabs 04/28/22 empagliflozin 25 mg tablet 25 mg PO DAILY #90 tabs 05/04/22 finasteride 5 mg tablet 5 mg PO DAILY #90 tabs 05/09/22 tamsulosin 0.4 mg capsule 0.4 mg PO DAILY #90 caps 05/09/22 donepezil 10 mg tablet 10 mg PO QAM #90 tabs 05/29/22 pantoprazole 40 mg tablet,delayed 40 mg PO DAILY #90 tabs 06/05/22 release vibegron 75 mg tablet (Gemtesa) 75 mg PO DAILY #30 tabs 06/07/22 Novolog Mix 70-30 FlexPen U-100 60 unit (0.6 mL) subcut BID 90 06/09/22 Insulin 100 unit/mL subcutaneous days #45 mL pen (insulin asp prt-insulin aspart) Results & Data (ED) Vital Signs Vital Signs - 24 hr 06/18/22 11:00 06/18/22 11:25 Temperature 37.8 C H Temperature Source Oral Pulse Rate 108 H Pulse Rhythm Irregular Pulse Strength Normal Respiratory Rate 24 Respiratory Effort / Characteristics Non-Labored Respiratory Depth Normal Respiratory Pattern Regular Blood Pressure 159/83 H Blood Pressure Mean 108 Blood Pressure Position Lying Pulse Oximetry 98 Oxygen Delivery Method Nasal Cannula Room Air Oxygen Flow Rate 2 Sepsis Recent Fever Within 48 Hours No Sepsis New/Unexplained Change in Mental Status No Sepsis Action Taken by Nursing MD Previously Notified Home Medications Current Medication List: was personally reviewed by me Laboratory Data Attestation: I reviewed the patient's lab results. 06/18/22 11:15 06/18/22 11:15 Lab Results 06/18/22 06/18/22 06/18/22 Range/Units 11:15 11:15 11:15 WBC 13.20 H (4.8-10.8) K/ul RBC 6.20 H (4.70-6.10) M/uL Hgb 17.8 (14.0-18.0) g/dl Hct 52.3 H (42.0-52.0) % MCV 84.4 (80.0-100.0) fL MCH 28.7 (25.0-34.0) pg MCHC 34.0 (32.0-36.0) g/dL RDW Std Deviation 47.9 H (36.4-46.3) fL RDW Coeff of Carolyn 17.3 H (11.5-14.5) % Plt Count 184 (130-400) K/uL MPV 10.5 (9.4-12.4) fL Immature Gran % (Auto) 0.4 % Neut % (Auto) 85.9 % Lymph % (Auto) 4.8 % [place] % (Auto) 8.3 % Eos % (Auto) 0.1 % Baso % (Auto) 0.5 % Neut # (Auto) 11.35 H (1.40-6.50) K/uL Lymph # (Auto) 0.64 L (1.2-3.4) K/uL [place] # (Auto) 1.09 H (0.11-0.59) K/uL Eos # (Auto) 0.01 (0-0.50) K/uL Baso # (Auto) 0.06 (0-0.2) K/uL Immature Gran # (Auto) 0.05 (0.01-0.20) K/uL RBC Morphology Unremarkable PT INR APTT PTT Ratio VBG pH (7.36-7.41) VBG pCO2 (38-50) mmHg VBG pO2 mmHg VBG HCO3 mmol/L VBG O2 Saturation % VBG Base Excess mEq/L Sodium Cancelled Potassium Cancelled Chloride Cancelled Carbon Dioxide Cancelled Anion Gap Cancelled BUN Cancelled Creatinine Cancelled Est Cr Clr Drug Dosing Cancelled Est GFR ( Amer) Cancelled Est GFR (Non-Af Amer) Cancelled BUN/Creatinine Ratio Cancelled Glucose Cancelled Lactate (0.4-2.0) mmol/L Calcium Cancelled Magnesium Cancelled Total Bilirubin Cancelled Direct Bilirubin Cancelled AST Cancelled ALT Cancelled Alkaline Phosphatase Cancelled Troponin I High Sens Cancelled B-Natriuretic Peptide (0-100) pg/ml Total Protein Cancelled Albumin Cancelled Procalcitonin Cancelled SARS-CoV-2 (PCR) (Negative) Influenza Type A (PCR) (Neg) Influenza Type B (PCR) (Neg) RSV (RT-PCR) (Neg) 06/18/22 06/18/22 06/18/22 Range/Units 11:15 11:15 11:52 WBC (4.8-10.8) K/ul RBC (4.70-6.10) M/uL Hgb (14.0-18.0) g/dl Hct (42.0-52.0) % MCV (80.0-100.0) fL MCH (25.0-34.0) pg MCHC (32.0-36.0) g/dL RDW Std Deviation (36.4-46.3) fL RDW Coeff of Carolyn (11.5-14.5) % Plt Count (130-400) K/uL MPV (9.4-12.4) fL Immature Gran % (Auto) % Neut % (Auto) % Lymph % (Auto) % [place] % (Auto) % Eos % (Auto) % Baso % (Auto) % Neut # (Auto) (1.40-6.50) K/uL Lymph # (Auto) (1.2-3.4) K/uL [place] # (Auto) (0.11-0.59) K/uL Eos # (Auto) (0-0.50) K/uL Baso # (Auto) (0-0.2) K/uL Immature Gran # (Auto) (0.01-0.20) K/uL RBC Morphology PT Cancelled INR Cancelled APTT Cancelled PTT Ratio Cancelled VBG pH (7.36-7.41) VBG pCO2 (38-50) mmHg VBG pO2 mmHg VBG HCO3 mmol/L VBG O2 Saturation % VBG Base Excess mEq/L Sodium Potassium Chloride Carbon Dioxide Anion Gap BUN Creatinine Est Cr Clr Drug Dosing Est GFR ( Amer) Est GFR (Non-Af Amer) BUN/Creatinine Ratio Glucose Lactate 2.4 H* (0.4-2.0) mmol/L Calcium Magnesium Total Bilirubin Direct Bilirubin AST ALT Alkaline Phosphatase Troponin I High Sens B-Natriuretic Peptide (0-100) pg/ml Total Protein Albumin Procalcitonin SARS-CoV-2 (PCR) POSITIVE A* (Negative) Influenza Type A (PCR) Negative (Neg) Influenza Type B (PCR) Negative (Neg) RSV (RT-PCR) Negative (Neg) 06/18/22 06/18/22 06/18/22 Range/Units 11:52 11:52 11:55 WBC (4.8-10.8) K/ul RBC (4.70-6.10) M/uL Hgb (14.0-18.0) g/dl Hct (42.0-52.0) % MCV (80.0-100.0) fL MCH (25.0-34.0) pg MCHC (32.0-36.0) g/dL RDW Std Deviation (36.4-46.3) fL RDW Coeff of Carolyn (11.5-14.5) % Plt Count (130-400) K/uL MPV (9.4-12.4) fL Immature Gran % (Auto) % Neut % (Auto) % Lymph % (Auto) % [place] % (Auto) % Eos % (Auto) % Baso % (Auto) % Neut # (Auto) (1.40-6.50) K/uL Lymph # (Auto) (1.2-3.4) K/uL [place] # (Auto) (0.11-0.59) K/uL Eos # (Auto) (0-0.50) K/uL Baso # (Auto) (0-0.2) K/uL Immature Gran # (Auto) (0.01-0.20) K/uL RBC Morphology PT 11.9 INR 1.1 APTT 27.6 PTT Ratio 1.0 VBG pH 7.40 (7.36-7.41) VBG pCO2 50 (38-50) mmHg VBG pO2 37 mmHg VBG HCO3 31 mmol/L VBG O2 Saturation < 60.0 % VBG Base Excess 5.0 mEq/L Sodium Potassium Chloride Carbon Dioxide Anion Gap BUN Creatinine Est Cr Clr Drug Dosing Est GFR ( Amer) Est GFR (Non-Af Amer) BUN/Creatinine Ratio Glucose Lactate (0.4-2.0) mmol/L Calcium Magnesium Total Bilirubin Direct Bilirubin AST ALT Alkaline Phosphatase Troponin I High Sens B-Natriuretic Peptide 250 H (0-100) pg/ml Total Protein Albumin Procalcitonin SARS-CoV-2 (PCR) (Negative) Influenza Type A (PCR) (Neg) Influenza Type B (PCR) (Neg) RSV (RT-PCR) (Neg) 06/18/22 06/18/22 06/18/22 Range/Units 11:55 13:56 13:56 WBC (4.8-10.8) K/ul RBC (4.70-6.10) M/uL Hgb (14.0-18.0) g/dl Hct (42.0-52.0) % MCV (80.0-100.0) fL MCH (25.0-34.0) pg MCHC (32.0-36.0) g/dL RDW Std Deviation (36.4-46.3) fL RDW Coeff of Carolyn (11.5-14.5) % Plt Count (130-400) K/uL MPV (9.4-12.4) fL Immature Gran % (Auto) % Neut % (Auto) % Lymph % (Auto) % [place] % (Auto) % Eos % (Auto) % Baso % (Auto) % Neut # (Auto) (1.40-6.50) K/uL Lymph # (Auto) (1.2-3.4) K/uL [place] # (Auto) (0.11-0.59) K/uL Eos # (Auto) (0-0.50) K/uL Baso # (Auto) (0-0.2) K/uL Immature Gran # (Auto) (0.01-0.20) K/uL RBC Morphology PT INR APTT PTT Ratio VBG pH (7.36-7.41) VBG pCO2 (38-50) mmHg VBG pO2 mmHg VBG HCO3 mmol/L VBG O2 Saturation % VBG Base Excess mEq/L Sodium 139 Potassium 4.0 Chloride 98 Carbon Dioxide 31 Anion Gap 10 BUN 48 H Creatinine 2.89 H Est Cr Clr Drug Dosing Not Reportable Est GFR ( Amer) 22.9 Est GFR (Non-Af Amer) 19.8 BUN/Creatinine Ratio 16.6 Glucose 250 H Lactate 2.0 (0.4-2.0) mmol/L Calcium 9.8 Magnesium 2.1 Total Bilirubin 1.0 Direct Bilirubin 0.1 AST 127 H ALT 38 Alkaline Phosphatase 93 Troponin I High Sens 51.8 H* B-Natriuretic Peptide (0-100) pg/ml Total Protein 7.3 Albumin 4.1 Procalcitonin 0.46 SARS-CoV-2 (PCR) (Negative) Influenza Type A (PCR) (Neg) Influenza Type B (PCR) (Neg) RSV (RT-PCR) (Neg) Administered Medications Apixaban (Apixaban 5 Mg Tablet) 5 mg PO BID [facility]1983 Stop: 07/18/22 20:59 Last Admin: 06/19/22 20:51 Dose: 5 mg Documented By: Admin: 06/19/22 08:17 Dose: 5 mg Documented By: Admin: 06/18/22 20:45 Dose: 5 mg Documented By: HUMA Clopidogrel Bisulfate (Clopidogrel Bisulfate 75 Mg Tab) 75 mg PO Q2D WILD Stop: 07/19/22 20:59 Last Admin: 06/19/22 20:52 Dose: 75 mg Documented By: JAGRUTI Donepezil HCl (Donepezil Hcl 10 Mg Tab) 10 mg PO QAM [facility], [facility]1983 Stop: 07/19/22 08:59 Last Admin: 06/19/22 08:17 Dose: 10 mg Documented By: LAURA Finasteride (Finasteride 5 Mg Tab) 5 mg PO DAILY [facility], [facility]1983 Stop: 07/19/22 08:59 Last Admin: 06/19/22 08:17 Dose: 5 mg Documented By: LAURA Fluticasone Furoate (Fluticasone Furoate 100mcg 14 Puffs/Inhaler) 1 puffs INH QAM [facility], [facility]1983 Stop: 07/19/22 08:59 Last Admin: 06/19/22 08:18 Dose: 1 puffs Documented By: LAURA Hydralazine HCl (Hydralazine Tab 50 Mg Tab) 50 mg PO QID [facility]1983 Stop: 07/18/22 20:59 Last Admin: 06/19/22 20:51 Dose: 50 mg Documented By: Admin: 06/19/22 17:29 Dose: 50 mg Documented By: Admin: 06/19/22 12:28 Dose: 50 mg Documented By: Admin: 06/19/22 08:18 Dose: 50 mg Documented By: Admin: 06/18/22 20:45 Dose: 50 mg Documented By: HUMA Dexamethasone 6 mg/ Syringe 1.5 mls @ 1 mls/min IV BID WILD Stop: 07/19/22 08:59 Last Admin: 06/19/22 21:44 Dose: 1 mls/min Documented By: Admin: 06/19/22 08:16 Dose: 1 mls/min Documented By: LAURA Sodium Chloride (Nss 1000ml) 1,000 mls @ 80 mls/hr IV .[id number] [facility], [facility]–1983 Stop: 06/20/22 07:59 Last Admin: 06/19/22 20:47 Dose: 80 mls/hr Documented By: JAGRUTI Insulin Aspart (Insulin Aspart Per Unit) 0 units SC ACHS [facility], [facility]1983 Stop: 07/18/22 19:29 Last Admin: 06/19/22 20:32 Dose: Not Given Documented By: Admin: 06/19/22 17:12 Dose: 22 units Documented By: LAURA Co-signed By: ABHI Admin: 06/19/22 11:55 Dose: 25 units Documented By: LAURA Co-signed By: ABHI Admin: 06/19/22 08:06 Dose: 19 units Documented By: LAURA Co-signed By: JAMA Admin: 06/18/22 20:44 Dose: Not Given Documented By: Admin: 06/18/22 20:36 Dose: 9 units Documented By: HUMA Co-signed By: JAGRUTI Insulin Glargine (Lantus Per Unit Charge) 35 units SQ BID [facility], [facility]–1983 Stop: 07/19/22 08:59 Last Admin: 06/19/22 20:41 Dose: 35 units Documented By: JAGRUTI Co-signed By: GENI Admin: 06/19/22 08:07 Dose: 35 units Documented By: LAURA Co-signed By: JAMA Latanoprost (Latanoprost 0.005% Op Soln 2.5 Ml Btl) 1 drops OPB PM [facility], [facility]1983 Stop: 07/18/22 20:59 Last Admin: 06/19/22 20:53 Dose: 1 drops Documented By: Admin: 06/18/22 20:45 Dose: 1 drops Documented By: HUMA Magnesium Chloride (Magnesium Chloride W/Calcium 64mg Delayed Rel Tab) [facility] [place]: 07/19/22 08:59 Last Admin: 06/19/22 08:18 Dose: 64 mg Documented By: LAURA Metoprolol Succinate (Metoprolol Succ 50mg Ext Rel Tab) 100 mg PO QAM [facility]1983 Stop: 07/19/22 08:59 Last Admin: 06/19/22 08:18 Dose: 100 mg Documented By: LAURA Pantoprazole Sodium (Pantoprazole 40 Mg Tab) 40 mg PO DAILY [facility]1983 Stop: 07/19/22 08:59 Last Admin: 06/19/22 08:19 Dose: 40 mg Documented By: LAURA Sertraline HCl (Sertraline Hcl 50 Mg Tablet) 150 mg PO DAILY WILD Stop: 07/19/22 08:59 Last Admin: 06/19/22 08:19 Dose: 150 mg Documented By: LAURA Tamsulosin HCl (Tamsulosin Hcl 0.4 Mg Cap) 0.4 mg PO DAILY WILD Stop: 07/19/22 08:59 Last Admin: 06/19/22 08:19 Dose: 0.4 mg Documented By: LAURA Umeclidinium/Vilanterol (Umeclidinium/Vilanterol 62.5/25mcg 7 Puffs/Inhaler) 1 puffs INH QAM WILD Stop: 07/19/22 08:59 Last Admin: 06/19/22 08:19 Dose: 1 puffs Documented By: LAURA Vibegron (Vibegron 75 Mg Tab (Pom)) 75 mg PO DAILY WILD Stop: 07/19/22 12:59 Last Admin: 06/19/22 12:29 Dose: 75 mg Documented By: LAURA Discontinued Medications Albuterol (Albut/Ipratrop 3mg/0.5mg Neb 3 Ml Vial) 12 ml INH ONE STA Stop: 06/18/22 11:21 Last Admin: 06/18/22 12:03 Dose: 12 ml Documented By: ALYSSIA Sodium Chloride (Nss 1000ml) 500 mls @ 999 mls/hr IV .Q31M ONE Stop: 06/18/22 11:50 Last Infusion: 06/18/22 13:42 Dose: 0 mls/hr Documented By: Admin: 06/18/22 12:16 Dose: 999 mls/hr Documented By: JOSE LUIS Magnesium Sulfate/Dextrose (Magnesium Sulfate / D5w) 1 gm in 100 mls @ 100 mls/hr IV Q1H WILD Stop: 06/18/22 13:29 Last Infusion: 06/18/22 16:34 Dose: 0 mls/hr Documented By: JOSE LUIS Admin: 06/18/22 14:07 Dose: 100 mls/hr Documented By: JOSE LUIS Infusion: 06/18/22 13:41 Dose: 0 mls/hr Documented By: Admin: 06/18/22 12:15 Dose: 100 mls/hr Documented By: JOSE LUIS Acetaminophen (Ofirmev) 1,000 mg in 100 mls @ 400 mls/hr IV NOW STA Stop: 06/18/22 11:51 Last Infusion: 06/18/22 12:37 Dose: 0 mls/hr Documented By: JOSE LUIS Admin: 06/18/22 12:15 Dose: 400 mls/hr Documented By: JOSE LUIS Levofloxacin/Dextrose (Levaquin/D5w) 750 mg in 150 mls @ 100 mls/hr IV NOW [facility] Stop: 06/18/22 13:51 Last Infusion: 06/18/22 16:34 Dose: 0 mls/hr Documented By: JOSE LUIS Admin: 06/18/22 15:02 Dose: 100 mls/hr Documented By: JOSE LUIS Insulin Aspart (Insulin Aspart Per Unit) 0 units SC 0000,0400 [facility], [facility]1983 Stop: 06/19/22 04:01 Last Admin: 06/19/22 04:23 Dose: 4 units Documented By: HUMA Co-signed By: JAGRUTI Admin: 06/19/22 00:07 Dose: 6 units Documented By: HUMA Co-signed By: JAGRUTI Insulin Aspart (Insulin Aspart Per Unit) 0 units SC TODAY@0000,0400 [facility], [facility]1983 Stop: 06/20/22 04:01 Last Admin: 06/20/22 03:31 Dose: 1 units Documented By: JAGRUTI Co-signed By: GENI Admin: 06/20/22 00:18 Dose: Not Given Documented By: JAGRUTI Insulin Glargine (Lantus Per Unit Charge) 25 units SQ HS [facility], [facility]1983 Stop: 07/18/22 20:59 Last Admin: 06/18/22 20:36 Dose: 25 units Documented By: HUMA Co-signed By: JAGRUTI Methylprednisolone (Methylprednisolone 125 Mg/2 Ml Vial) 125 mg IV NOW [facility] Stop: 06/18/22 11:21 Last Admin: 06/18/22 12:14 Dose: 125 mg Documented By: JOSE LUIS Metoprolol Succinate (Metoprolol Succ 50mg Ext Rel Tab) 100 mg PO [facility] Stop: 06/18/22 14:10 Last Admin: 06/18/22 15:02 Dose: 100 mg Documented By: JOSE LUIS Miscellaneous (Vibegron (Gemtasa)- Order Awaiting Action) 1 each N/A QS FORMERLY [facility], 1928–1983 Stop: 07/19/22 07:59 Last Admin: 06/19/22 08:17 Dose: Not Given Documented By: MP Imaging Data Radiologist's Impression: Chest X-Ray 06/18/22 11:20 SINGLE VIEW CHEST CLINICAL HISTORY: Sepsis. FINDINGS: An AP, portable, upright chest radiograph is compared to study dated 01/27/2022 and correlated with chest CT dated 08/18/2020. The heart is noting atherosclerotic calcification of the thoracic aorta. The pulmonary vasculature is noncongested. Chronic interstitial thickening is similar to previous. There is bibasilar scarring/atelectasis. The lungs and pleural spaces are clear. No pneumothorax is seen. The skeletal structures are osteopenic. The bony thorax is grossly intact. Arthritic change is seen in the shoulders. IMPRESSION: Cardiomegaly with no acute cardiopulmonary abnormality identified. ACT 112: Negative or not required by law. Electronically signed by: Barney Evangelista M.D. 06/18/2022 11:34 AM Discharge Plan Visit Data Chief Complaint: Fall Stated Complaint: FALL, WEAKNESS, ILLNESS ED Provider: Demarcus Hong Discharge Problem: Acute hypoxemic respiratory failure due to COVID-19, OLIVER (acute kidney injury), CKD (chronic kidney disease), History of restrictive lung disease Patient Disposition: Admitted As Inpatient Discharge Instructions Interventions: ED Discharge Assessment Last Done: 06/18/22 16:01
[2022-06-18 11:41] LABS: Hematocrit (blood only) 52.3 % (42.0-52.0); Hemoglobin 17.8 g/dl (14.0-18.0); Mean Corpuscular Hemoglobin 28.7 pg (25.0-34.0); Mean Corpuscular Volume 84.4 fL (80.0-100.0); Mean Platelet Volume 10.5 fL (9.4-12.4); Platelet Count 184 K/uL (130-400); RDW Coefficient of Variation 17.3 % (11.5-14.5); RDW Standard Deviation 47.9 fL (36.4-46.3)
[2022-06-18 12:09] LABS: HCO3 VBG 31 mmol/L; Oxygen Saturation VBG < 60.0 %; PCO2 VBG 50 mmHg (38-50); PO2 VBG 37 mmHg
[2022-06-18 12:12] LABS: Influenza A virus by PCR Negative (Neg); Influenza B virus by PCR Negative (Neg); RSV by PCR Negative (Neg)
--- NOTE | 2022-06-18 12:14 | CT Scan Report ---
CT SCAN OF THE BRAIN WITHOUT IV CONTRAST CLINICAL HISTORY: Fall. COMPARISON STUDY: CT of the brain dated 10/03/2016. TECHNIQUE: Unenhanced axial CT scan of the brain is performed from the vertex to the skull base. A do se lowering technique was utilized adhering to the principles of ALARA. CT DOSE: 614.27 mGy.cm FINDINGS: Brain parenchyma: There is age-related involutional change noting mild subcortical and periventricula r microangiopathic disease. There is no hemorrhage, mass effect, or evidence of acute territorial isc hemia by CT criteria. Small chronic lacunar infarcts are noted in both caudate heads. Gordillo-white tracey er differentiation is preserved. No extra-axial fluid collection is seen. Mineralization is noted in the basal ganglia. Ventricles, sulci, cisterns: Prominent secondary to involutional change. Intracranial vasculature: There is atherosclerotic calcification of the cavernous carotid and vertebr al arteries. Calvarium: The skeletal structures are osteopenic. No depressed calvarial fracture is seen. Soft tissues: There is posterior scalp contusion. Sinuses and mastoids: There is trace mucosal thickening within the maxillary and ethmoid sinuses. The mastoid air cells are well pneumatized. Orbits: The bony orbits are grossly intact. There are bilateral ocular lens implants. IMPRESSION: There is no hemorrhage, mass effect, or evidence of acute territorial ischemia by CT august martinez. ACT 112: Negative or not required by law. Electronically signed by: Barney Evangelista M.D. 06/18/2022 12:12 PM
[2022-06-18] MEDS: MAGNESIUM SULFATE / D5W 1 GM/100 ML BAG IV SCH ×2 (12:15→14:07)
[2022-06-18 12:16] LABS: SARS CoV2 RNA(COVID-19) Ceph POSITIVE (Negative)
[2022-06-18] MEDS ORDERED: levoFLOXacin/D5W 750 MG/150 ML BAG IV STA (12:22)
[2022-06-18 12:34] LABS: INR 1.1 (0.9-1.1); Partial Thromboplastin Time 27.6 Seconds (21.0-31.0); Prothrombin Time 11.9 Seconds (9.0-12.0)
[2022-06-18 12:54] LABS: Basophils # (auto) 0.06 K/uL (0-0.2); Basophils % (auto) 0.5 %; Eosinophils # (auto) 0.01 K/uL (0-0.50); Eosinophils % (auto) 0.1 %; Immature Granulocytes # (auto) 0.05 K/uL (0.01-0.20); Immature Granulocytes % (auto) 0.4 %; Lymphocytes # (auto) 0.64 K/uL (1.2-3.4); Lymphocytes % (auto) 4.8 %; Monocytes # (auto) 1.09 K/uL (0.11-0.59); Monocytes % (auto) 8.3 %; Neutrophils # (auto) 11.35 K/uL (1.40-6.50); Neutrophils % (auto) 85.9 %; RBC Morphology Unremarkable
--- NOTE | 2022-06-18 13:33 | History & Physical Report ---
Date of Service June 18, 2022 Assessment & Plan (1) Acute respiratory failure with hypoxia: Plan: Acute hypoxemic respiratory failure 2/2 COVID Patient vaccinated and boosted Leukocytosis of 13.2 Lactate 2.4 on admission, repeat pending. Clinically dry and +500cc fluid. Cautious boluses 2/2 hx CHF. VBG 7.40/50/37/31 Lactate 2.4, BNP 250 on admission COVID-positive on admission CThead: No acute findings CXR: Cardiomegaly with noncongested pulmonary vasculature, no evidence of pulmonary edema BNP 250 with no reference available. Clinically is volume depleted with elevated lactate, will give gentle bolus and follow carefully for overload. Prefer slightly dry status with COVID-pneumonia Mag repleted Given methylprednisolone 125 IV in ER Transition to dexamethasone as inpatient Initially patient febrile, ill-appearing, with hypoxia. Given comorbidities and pending labs was given an empiric dose of levofloxacin. Will defer additional doses given COVID-positive, no lobar pneumonia on CXR, and pending Pro-Pedro - Prior history of oxygen weaned, noncompliant with Trelegy as outpatient. Follows with pulm (2) COVID: Plan: As noted (3) COPD with emphysema: Plan: COPD/restrictive lung disease overlap Pulm notes reviewed. factorial shortness of breath with restrictive lung disease, COPD, and midrange/diastolic CHF As outpatient prescribed Trelegy inhaler for use daily, has been noncompliant with this in the past PFTs 2020: FVC 1.42 34%, FEV1 1.0 633%, ratio 75%, DLCO 54% Patient condition with tracheomalacia, tracheoplasty was noted to be a possible treatment but was not recommended in the setting of multiple comorbidities and age. This is been discussed with patient as an outpatient Previously with chronic hypoxic respiratory failure, was weaned and able to maintain O2 saturation greater than 90% on room air with ambulation and so was discontinued at last visit 12/2021 - Continue trelegy/formulary equivalent. DuoNebs prn. (4) Diabetes mellitus, type II, insulin dependent: Plan: Type II DM Hold home antilipemics - home basal deglutec 22u qhs Weight-based Lantus 10 units twice daily, CF 40, carb ratio 15 NPH twice daily added with steroid dosing Pharmacy consulted for additional assistance in management (5) Chronic kidney disease, stage III (moderate): Plan: CKD 3 With history of DM Last baseline creatinine around 2.06, recently risen to around 2.5 Creatinine 2.89 on admission, clinically volume depleted BMP daily, renally adjust medications Defer remdesivir (6) Depression: Plan: Depression Continue sertraline 100 mg daily (7) Hypertension: Plan: Hypertension Continue metoprolol, hydralazine (8) Hyperlipidemia: Plan: Hyperlipidemia Has not tolerated statin panel in the past, followed by cardiology as an outpatient No acute change in management (9) Atrial fibrillation: Plan: Permanent atrial fibrillation Continue Eliquis Patient has not taken metoprolol today or yesterday, given in the ER. Continue home dosing. IV on-call for RVR (10) CHF (congestive heart failure): Plan: CHF with midrange EF, CAD with history of LAD stent Mild global hypokinesis on last echo EF 45-50% On Plavix every other day -Chronic venous stasis changes on exam, but no significant edema at time of admission. Clinically hypovolemic with elevated lactate, dry mucous membranes despite slightly elevated BNP Cautious fluid boluses as needed, defer Lasix at this time Troponin is mildly elevated suspect in the setting of demand and COVID. Trended. No chest pain prior to admission or any ER/at bedside assessment (11) Carotid art occ w/o infarc: Plan: Carotid stenosis On Plavix daily as noted and Eliquis No acute change in management Plan DVT prophylaxis: Anticoagulated Diet: Heart healthy, DM, low-salt Disposition: PCU for IV metoprolol, history of A. fib and currently tachycardic with missed medications CODE STATUS: DNR/DNI History of Present Illness Primary Care Provider: Bon Macias MD Ramses Petty is a 77-year-old male with past medical history of restrictive lung disease, tracheomalacia, permanent atrial fibrillation on apixaban, CAD with history of LAD stent and every other day Plavix, CKD last creatinine baseline around 2.0, DM2 on basal/bolus with Jardiance, depression COVID-positive, 1 day of symptoms. Vaccinated and boosted. Weak, more tired last night. Did not take medicines last night or this morning. Sore throat x1 day, no fevers chills No shortness of breath Increased wheezing in the last few days Used trelegy 4 out of the last 5 days, did not use this morning No night swetas nonproductive cough x1 day No problems with bleeding, denies melena/bright red blood per rectum, hematemesis Has had worsening kidney function at his follow-up this past week Medical History: Reviewed Medications: Reviewed Surgical History: Reviewed Allergies: Reviewed Social History: No recent tobacco / etoh use. Code Status: DNR/DNI Allergies Allergy/AdvReac Type Severity Reaction Status Date / Time Penicillins Allergy Severe FACIAL Verified 06/14/22 11:24 SWELLING AND RASH amoxicillin Allergy Intermediate RASH Verified 06/14/22 11:24 clavulanic acid Allergy Intermediate RASH Verified 06/14/22 11:24 cholestyramine Allergy Unknown per nephro Verified 06/14/22 11:24 note niacin Allergy Unknown per nephro Verified 06/14/22 11:24 note phenylephrine Allergy Unknown per nephro Verified 06/14/22 11:24 note Wyrzehd-LDO-YdV Reductase Allergy Unknown JOINT Verified 06/14/22 11:24 Inhibitor STIFFNESS [Hkiyxvn-Dez-Jbz Reductase AND PAIN Inhibitor] azithromycin Allergy PER NEPHRO Verified 06/14/22 11:24 NOTE Home Medications Medication Instructions Recorded Confirmed Type dorzolamide 2 % eye drops (Trusopt) 1 drp OPB BID 03/13/18 06/14/22 History glucosamine sulfate 500 mg tablet 2 tabs PO QAM 03/13/18 06/14/22 History (Glucosamine) latanoprost 0.005 % eye drops 1 drp OPB PM 03/13/18 06/14/22 History (Xalatan) magnesium chloride 64 mg 64 mg PO QAM 03/13/18 06/14/22 History (magnesium chloride) tablet,delayed release (Mag 64) nitroglycerin 0.4 mg sublingual 0.4 mg sublingual UD PRN Chest 03/12/19 06/14/22 Rx tablet (Nitrostat) Pain #1 btl OneTouch UltraSoft Lancets #400 ea 05/23/19 06/14/22 Rx (lancets) insulin syringe-needle U-100 0.5 #300 ea 08/13/19 06/14/22 Rx mL 31 gauge x 5/16" (BD Insulin Syringe Ultra-Fine) ipratropium 0.5 mg-albuterol 3 mg 3 ml inhalation Q8H PRN shortness 10/04/20 06/14/22 Rx (2.5 mg base)/3 mL nebulization of breath or wheezing #180 mL soln nebulizers (Aeroneb Go Nebulizer) #1 ea 10/04/20 06/14/22 Rx Portable Oxygen 09/28/21 06/14/22 History budesonide 0.25 mg/2 mL suspension 0.25 mg inhalation BID PRN 09/28/21 06/14/22 History for nebulization sertraline 100 mg tablet 150 mg PO DAILY 90 days #135 tabs 10/27/21 06/14/22 Rx Discontinue DME #1 ea 12/29/21 06/14/22 Rx albuterol sulfate 90 mcg/actuation 2 puff inhalation DAILY PRN 12/29/21 06/14/22 Rx aerosol inhaler (Ventolin HFA) shortness of breath or wheezing #8.5 grams metoprolol succinate 100 mg 100 mg PO QAM #90 tabs 01/02/22 06/14/22 Rx tablet,extended release 24 hr BD Ultra-Fine Short Pen Needle 31 #100 ea 01/17/22 06/14/22 Rx gauge x 5/16" (pen needle, diabetic) clopidogrel 75 mg tablet 75 mg PO Q2D #45 tabs 01/17/22 06/14/22 Rx hydralazine 50 mg tablet 100 mg PO QID 90 days #720 tabs 01/17/22 06/14/22 Rx blood sugar diagnostic (OneTouch #400 ea 01/23/22 06/14/22 Rx Ultra Test strips) insulin degludec 100 unit/mL (3 22 unit (0.22 mL) subcut QPM #15 mL 03/23/22 06/14/22 Rx mL) subcutaneous pen (Tresiba FlexTouch U-100 insulin) potassium chloride 20 mEq 20 meq PO QAM PRN Muscle Cramps 03/30/22 06/14/22 Rx tablet,extended release from Lasix #60 tabs furosemide 40 mg tablet 40 mg PO .COMPLEX Edema #240 tabs 04/13/22 06/14/22 Rx fluticasone fur. 100 mcg-umeclid 1 inh inhalation DAILY #60 ea 04/24/22 06/14/22 Rx 62.5 mcg-vilant 25 mcg inhalat.powder (Trelegy Ellipta) apixaban 5 mg tablet (Eliquis) 5 mg PO BID #180 tabs 04/28/22 06/14/22 Rx empagliflozin 25 mg tablet 25 mg PO DAILY #90 tabs 05/04/22 06/14/22 Rx finasteride 5 mg tablet 5 mg PO DAILY #90 tabs 05/09/22 06/14/22 Rx tamsulosin 0.4 mg capsule 0.4 mg PO DAILY #90 caps 05/09/22 06/14/22 Rx donepezil 10 mg tablet 10 mg PO QAM #90 tabs 05/29/22 06/14/22 Rx pantoprazole 40 mg tablet,delayed 40 mg PO DAILY #90 tabs 06/05/22 06/14/22 Rx release vibegron 75 mg tablet (Gemtesa) 75 mg PO DAILY #30 tabs 06/07/22 06/14/22 Rx Novolog Mix 70-30 FlexPen U-100 60 unit (0.6 mL) subcut BID 90 06/09/22 06/14/22 Rx Insulin 100 unit/mL subcutaneous days #45 mL pen (insulin asp prt-insulin aspart) Past Med/Surg History Medical History (Updated 06/18/22 @ 13:56 by Valentino Meyers MD) Alzheimer disease on donepezil Anticoagulant long-term use Atrial fibrillation metoprolol/apixaban Bladder cancer 2014--sx Bladder cancer BPH (benign prostatic hyperplasia) BPH with obstruction/lower urinary tract symptoms CAD (coronary artery disease) follows with Dr. Motley Cancer of skin of back removed Cancer of skin of left ear removed CHF (congestive heart failure) Chronic kidney disease, stage III (moderate) follows with Dr. Joseph COPD (chronic obstructive pulmonary disease) Degenerative disc disease Depression (Unknown) Diabetes mellitus, type II, insulin dependent Diabetic nephropathy Diabetic peripheral neuropathy Diabetic retinopathy, nonproliferative, mild WALL (dyspnea on exertion) Dysphagia causing pulmonary aspiration with swallowing GERD (gastroesophageal reflux disease) Glaucoma Hearing deficit History of colon polyps Hyperlipidemia Hypertension Leaking of urine On home O2 2 LPM PRN Surgical History H/O heart artery stent (2015) 2012 x 1 2015 x 3 2017 x 1 ( showed severe 99 % mid RCA in stent restenoses which was treated with drug-eluting stent) History of bilateral cataract extraction History of bladder surgery 2014 bladder tumor removal @ [facility] History of cardiac cath x3--2012, 2014, 2017 @ [facility] History of colonoscopy History of skin surgery removal of basal cell carcinoma from L side of face, 08/24/[address] Velazquez History of tonsillectomy and adenoidectomy Family History Mother Family history of diabetes mellitus COPD (chronic obstructive pulmonary disease) Lung cancer Father Family history of diabetes mellitus Acute appendicitis Brother Hx of CABG Myocardial infarction Sister Heart disease Myocardial infarction Other Coronary heart disease Denies family history of Ovarian cancer Prostate cancer Kidney disease Breast cancer Colorectal cancer Social History Smoking Status: Former smoker Tobacco Type: Cigarettes Age Started Using Tobacco: 14; Age Quit Using Tobacco: 29; packs per day: 1; Second Hand Exposure: No; Hx Alcohol Use: No Hx Substance Use: No Preferred Language: Yakut Communication Ability: Effective Visual Impairment: Limited Hearing Ability: Hard of Hearing Coordinator Of Rehabilitation Services Required: No Beliefs That Will Affect Care: None marital status: Current Living Situation: Spouse current occupational status: retired 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 NAD. Cooperative. Somnolent but easily awakens HEENT: Atraumatic, normocephalic. JIMMIE. Vision/hearing grossly intact Pulm: Mild end expiratory wheeze. No rales. No crackles. Symmetrical chest rise. No increased work of breathing. No respiratory distress. On nebulizer at assessment Cardiac: Regular, tachycardic. -JVD Abdominal: Nontender, softly distended, no rebound/guarding. BS present. Ext: No edema. Warm, dry. Chronic stasis changes/hyperpigmentation. L 1st toe ulceration, superficial, no erythema/warmth/discharge well healing Results & Data Results & Data ([facility]) Vital Signs (Past 12 Hours) Vital Signs Temp Pulse Pulse Resp BP BP Pulse Ox 06/18/22 12:30 88 L 06/18/22 12:00 98 H 24 146/84 H 2 L 06/18/22 12:04 95 H 18 95 06/18/22 11:25 06/18/22 11:00 37.8 C H 108 H 24 159/83 H 98 O2 Del Method O2 Flow Rate 06/18/22 12:30 Nasal Cannula 0 06/18/22 12:00 Nasal Cannula 97 06/18/22 12:04 Nasal Cannula 4 06/18/22 11:25 Room Air 06/18/22 11:00 Nasal Cannula 2 PG Care Time/CCT Total # of Minutes Spent Total Time Spent with Patient: Total time spent is greater than 50% in coordination of care (as documented) at patient's floor/unit and/or counseling patient: Coding Level of Care Code 82520 INT INP/OBS CARE 3/75MIN Diagnoses Acute respiratory failure with hypoxia J96.01 COVID U07.1 COPD with emphysema J43.9 Diabetes mellitus, type II, insulin dependent E11.9; Z79.4 Chronic kidney disease, stage III (moderate) N18.30 Chronic kidney disease stage 3 subtype: unspecified whether 3a or 3b Depression F32.9 Hypertension I10 Hypertension type: essential hypertension Hyperlipidemia E78.5 Hyperlipidemia type: unspecified Atrial fibrillation I48.91 CHF (congestive heart failure) I50.9 Carotid art occ w/o infarc I65.29 (1) Chronic kidney disease, stage III (moderate) Chronic kidney disease stage 3 subtype: unspecified whether 3a or 3b Qualified Code(s): N18.30 - Chronic kidney disease, stage 3 unspecified (2) Hypertension Hypertension type: essential hypertension Qualified Code(s): I10 - Essential (primary) hypertension (3) Hyperlipidemia Hyperlipidemia type: unspecified Qualified Code(s): E78.5 - Hyperlipidemia, unspecified
[2022-06-18 13:50] LABS: Alanine Aminotransferase 38 U/L (7-52); Albumin Level 4.1 gm/dl (3.4-5.0); Alkaline Phosphatase 93 U/L (34-104); Anion Gap 10 (3-11); Aspartate Aminotransferase 127 U/L (13-39); BUN Creatinine Ratio 16.6 (10-20); Bilirubin Direct 0.1 mg/dl (0-0.2); Blood Urea Nitrogen 48 mg/dl (6-23); Calcium 9.8 mg/dl (8.5-10.1); Carbon Dioxide 31 mmol/L (21-32); Chloride 98 mmol/L (98-107); Est GFR (African American) 22.9 ml/min; Est GFR (Non-African American) 19.8 ml/min; Glucose 250 mg/dl (70-99(Fasting)); Magnesium 2.1 mg/dl (1.7-2.4); Sodium 139 mmol/L (136-145); Total Protein 7.3 gm/dl (6.0-8.3)
[2022-06-18 13:58] LABS: Troponin I High Sensitivity 51.8 pg/ml (0-20)
[2022-06-18] MEDS ORDERED: METOPROLOL SUCC 50MG EXT REL TAB PO STA (14:09)
[2022-06-18] MEDS ORDERED: CARBOHYDRATES FOR HYPOGLYCEMIA PO PRN (18:43)
[2022-06-18] MEDS ORDERED: ACETAMINOPHEN 325 MG TAB PO PRN (18:43)
[2022-06-18] MEDS ORDERED: PHARMACY GLYCEMIC MGMT CONSULT PRN (18:43)
[2022-06-18] MEDS ORDERED: DEXTROSE 50% 50 ML SYRINGE IV PRN (18:43)
[2022-06-18] MEDS ORDERED: GLUCOSE 40% GEL 15 GM TUBE PO PRN (18:43)
[2022-06-18] MEDS ORDERED: GLUCAGON FOR INJ 1 MG VIAL SQ PRN (18:43)
[2022-06-18] MEDS ORDERED: NITROGLYCERIN SL 0.4 MG/TAB TAB SL PRN (18:43)
[2022-06-18] MEDS ORDERED: METOPROLOL TARTRATE 1 MG/ML VIAL IV PRN (18:43)
[2022-06-18] MEDS ORDERED: ALBUT/IPRATROP 3MG/0.5MG NEB 3 ML VIAL INH PRN (18:43)
[2022-06-18] MEDS ORDERED: GLUCOSE 10 TAB/TUBE PO PRN (18:43)
[2022-06-18] MEDS: INSULIN ASPART PER UNIT SC SCH ×2 (20:36→20:44)
[2022-06-18] MEDS: LATANOPROST 0.005% OP SOLN 2.5 ML BTL OPB SCH (20:45)
[2022-06-18] MEDS: APIXABAN 5 MG TABLET PO SCH (20:45)
[2022-06-18] MEDS: hydrALAZINE TAB 50 MG TAB PO SCH (20:45)
[2022-06-18] MEDS ORDERED: INSULIN HUMAN NPH SC SCH (21:00)
[2022-06-18] MEDS ORDERED: LANTUS PER UNIT CHARGE SQ SCH (21:00)
[2022-06-19] MEDS: INSULIN ASPART PER UNIT SC SCH ×6 (00:07→20:32)
[2022-06-19 04:29] LABS: Appearance Urine Clear (Clear); Bacteria Urine Automated Negative (Negative); Bilirubin Urine Negative (Negative); Blood Urine Negative (Negative); Color Urine Yellow; Epithelial Cell Urine Auto 20-30 /lpf (0-5); Glucose Urine UA 3+ (Negative); Ketones Urine Negative (Negative); Leukocyte Esterase Urine Negative (Negative); Nitrite Urine Negative (Negative); Protein Urine 1+ (Negative); RBC Urine Automated 0-4 /hpf (0-4); Specific Gravity Urine 1.024 (1.000-1.030); Urobilinogen Urine Negative (Negative)
[2022-06-19] MEDS: LANTUS PER UNIT CHARGE SQ SCH ×2 (08:07→20:41)
[2022-06-19] MEDS: dexAMETHasone 6 MG in SYRINGE 0 ML IV SCH ×2 (08:16→21:44)
[2022-06-19] MEDS: APIXABAN 5 MG TABLET PO SCH ×2 (08:17→20:51)
[2022-06-19] MEDS: FINASTERIDE 5 MG TAB PO SCH (08:17)
[2022-06-19] MEDS: DONEPEZIL HCL 10 MG TAB PO SCH (08:17)
[2022-06-19] MEDS: hydrALAZINE TAB 50 MG TAB PO SCH ×4 (08:18→20:51)
[2022-06-19] MEDS: METOPROLOL SUCC 50MG EXT REL TAB PO SCH (08:18)
[2022-06-19] MEDS: FLUTICASONE FUROATE 100MCG 14 PUFFS/INHALER INH SCH (08:18)
[2022-06-19] MEDS: MAGNESIUM CHLORIDE W/CALCIUM 64MG DELAYED REL TAB PO SCH (08:18)
[2022-06-19] MEDS: UMECLIDINIUM/VILANTEROL 62.5/25MCG 7 PUFFS/INHALER INH SCH (08:19)
[2022-06-19] MEDS: PANTOprazole 40 MG TAB PO SCH (08:19)
[2022-06-19] MEDS: TAMSULOSIN HCL 0.4 MG CAP PO SCH (08:19)
[2022-06-19] MEDS: SERTRALINE HCL 50 MG TABLET PO SCH (08:19)
[2022-06-19] MEDS ORDERED: NON-FORMULARY MEDICATION (Fluticasone-Umeclidin-Vilanter [Trelegy Ellipta] 100-62.5-25 mcg INH SCH (09:00)
--- NOTE | 2022-06-19 09:00 | Electrocardiogram Report ---
Test Reason : Blood Pressure : / mmHG Vent. Rate : 105 BPM Atrial Rate : 357 BPM P-R Int : 000 ms QRS Dur : 082 ms QT Int : 318 ms P-R-T Axes : 000 -28 085 degrees QTc Int : 420 ms Poor data quality, interpretation may be adversely affected Atrial flutter with variable A-V block Diffuse Nonspecific ST and T wave abnormality Abnormal ECG When compared with ECG of 27-JAN-2022 14:34, Atrial flutter has replaced Atrial fibrillation Confirmed by Evaristo Motley ([id number]) on 06/19/2022 9:00:22 AM Referred By: REFERRED SELF Confirmed By:Evaristo Motley
[2022-06-19 09:21] LABS: Estimated Average Glucose 235 mg/dl; Hemoglobin A1C 9.8 % (4.5-5.6)
[2022-06-19 09:22] LABS: Basophils # (auto) 0.04 K/uL (0-0.2); Basophils % (auto) 0.3 %; Eosinophils # (auto) 0.03 K/uL (0-0.50); Eosinophils % (auto) 0.2 %; Hematocrit (blood only) 50.5 % (42.0-52.0); Hemoglobin 16.9 g/dl (14.0-18.0); Immature Granulocytes # (auto) 0.04 K/uL (0.01-0.20); Immature Granulocytes % (auto) 0.3 %; Lymphocytes # (auto) 0.79 K/uL (1.2-3.4); Lymphocytes % (auto) 6.2 %; Mean Corpuscular Hemoglobin 28.5 pg (25.0-34.0); Mean Corpuscular Hgb Conc 33.5 g/dL (32.0-36.0); Mean Platelet Volume 9.8 fL (9.4-12.4); Monocytes # (auto) 1.07 K/uL (0.11-0.59); Monocytes % (auto) 8.4 %; Neutrophils # (auto) 10.73 K/uL (1.40-6.50); Neutrophils % (auto) 84.6 %; Platelet Count 203 K/uL (130-400); RDW Coefficient of Variation 16.1 % (11.5-14.5); RDW Standard Deviation 49.1 fL (36.4-46.3); Red Blood Count 5.94 M/uL (4.70-6.10)
--- NOTE | 2022-06-19 10:09 | Pharmacy Report ---
Pharmacy Glycemic Short Note 2 - Date of Service June 19, 2022 - Glycemic Short BSG Results (Last 24 hours): 06/18/22 06/18/22 06/18/22 11:15 11:55 18:34 Glucose Cancelled 250 H POC Glucose 268 H 06/18/22 06/19/22 06/19/22 20:11 00:01 00:03 Glucose POC Glucose 274 H 302 H* 301 H* 06/19/22 06/19/22 04:09 07:52 Glucose POC Glucose 235 H 170 H OUTPATIENT ANTIDIABETIC REGIMEN: * Tresiba 22 units Q PM * Novolog 70/30 60 units BID * Januvia 25mg daily * A1c = 9.8% ASSESSMENT: * Poorly controlled type 2 diabetic admitted with resp failure secondary to COVID19 viral pna, COPD exacerbation, restrictive lung dz * Hyperglycemic on admission and persistently hyperglycemic in the setting of high dose IV steroid provision * Dexamethasone IV has been ordered as 6mg BID. Typically would utilize NPH to address once daily IV dexamethasone use, but given this patient's high outpt insulin requirements (~140 units/day) and the steroid is being dosed BID, he may be better controlled utilizing aggressive rapid acting insulin regimen along with BID Lantus. * Will base initial insulin dose upon reported outpt insulin requirements of ~140 units/day. Will follow BSG trends and adjust as necessary PLAN FOR INPATIENT GLYCEMIC CONTROL: * Hold outpatient diabetes medications * Basal insulin * Lantus 35 units SQ BID * Bolus insulin * NovoLog per scale ACHS and at 00, 04 initially given aggressive insulin regimen * Goal Range: Low 110 mg/dL - High 140 mg/dL * Correction Factor: 10 mg/dL/unit * Nutritional / Prandial insulin per carb ratio of 1 unit per 3 grams CHO consumed
[2022-06-19 10:15] LABS: BUN Creatinine Ratio 22.2 (10-20); C Reactive Protein 14.31 mg/dl (0-0.5); Calcium 10.1 mg/dl (8.5-10.1); Creatinine Clr Calc Pharmacy 20.5 ml/min; Est GFR (African American) 18.7 ml/min; Est GFR (Non-African American) 16.1 ml/min; Potassium 3.7 mmol/L (3.5-5.1)
[2022-06-19] MEDS: VIBEGRON 75 MG PO SCH (12:29)
--- NOTE | 2022-06-19 15:31 | Hospitalist Progress Note ---
Date of Service June 19, 2022 Assessment & Plan (1) Pneumonia due to COVID-19 virus: Plan: The patient has known chronic lung disease (COPD, restrictive lung disease, tracheomalacia). CXR with "Chronic" appearing interstitial changes per radiology. I cannot rule out that he has element of COVID-19 pneumonia. Fortunately he is stable in RA at this time. He was given solumedrol 125mg IV x 1 in ER on 06/18/22 for suspected COVID pneumonia. He was then placed on dexamethasone 6mg IV BID today by admitting physician. I suspect that we can drop this to once daily in the am tomorrow. Cont home inhalers. Albuterol prn. Pulmonary toilet with flutter valve and incentive spirometry. (2) COPD (chronic obstructive pulmonary disease): Plan: cont all home inhalers pulm toilet IV dexamethasone as in #1 above albuterol prn (3) Rhabdomyolysis: Plan: 2nd to fall at home. CPK ~1000. hydrate, repeat CPK in am. The elevated CPK may explain the elevated AST. (4) OLIVER (acute kidney injury): Plan: in setting of stage 3B CKD with baseline Cr 2 to 2.5 presented with Cr 2.8; now he is 3.5 etiology - rhabdomyolysis? volume contraction? effects from COVID itself? obstructive (after voiding this am he had 500+cc of urine left)? suspect combination of factors aamro placed IV fluids repeat BMP am (5) Chronic renal failure (CRF), stage 3b: Plan: baseline CrCl low 30s baseline Creatinine 2 to 2.5 daily BMP (6) Diabetes mellitus type 2, uncontrolled: Plan: Hba1c 9.8% Pharmacy has been consulted for glycemic management Cont on basal-bolus insulin Appreciate pharmacy assistance (7) Permanent atrial fibrillation: Plan: rates controlled at this time with metoprolol succinate 100mg daily he takes Eliquis 5mg BID for chronic AC cont tele monitoring (8) Chronic systolic CHF (congestive heart failure): Plan: EF 45-50% on echo in 2019. This should be repeated at some point. He does not appear volume overloaded. If anything he appears volume contracted. He uses lasix on sliding scale basis. If weight is 239 or less he takes 40mg/day. 240-245 - he takes 60mg/day of lasix. >245 - takes 80mg/day of lasix. Today's weight is 229 #. HOLD Lasix today while giving gentle IV fluids overnight. (9) BPH with obstruction/lower urinary tract symptoms: Plan: with resulting urinary retention today cont flomax cont finasteride amaro now in place admission u/a not suggestive of UTI (10) CAD (coronary artery disease): Plan: cont plavix qod cont metoprolol no ischemic symptoms at this time HS trop scantly elevated with peak of 56 -- likely myocardial demand ischemia in setting of his COVID infection, fall, etc (11) Diabetic nephropathy: Plan: baseline Cr 2 to 2.5 (12) Hypertension: Plan: acceptable readings since admission (13) Morbid obesity: Plan: BMI 35 (14) Dementia: Plan: cont aricept (15) Tracheomalacia: Plan: no Rx needed noted on prior CT scans follows with Dr Ervin (16) Restrictive lung disease: Plan: severe based on prior PFTs 2nd obesity? other? no thing to do at this time (17) DVT prophylaxis: Plan: Eliquis 5mg BID Plan I was unable to speak to pt's -- I called twice this evening, both times the phone line was busy she apparently has COVID herself spoke with his granddaughter and gave extensive update; she will try to relay my message to Mrs Petty PT, ANJEL tinajero Admission and Anticipated Discharge Date Admission Date: June 18, 2022 Subjective tele overnight with maggie, rates <100 he was resting comfortably in bed watching TV appetite has been good throughout the day he denies all complaints he recalls having been found on the floor; despite this fall he denies pain in any location; no pain in legs, arms, hips, head, etc he had o2 sats in the high 80s yesterday, required O2 until this am at which point it was weaned off and his sats have been >90% since per staff he is very weak, needing considerable assistance to get up Review of Systems Review of Systems: gen - denies fevers, chills; does endorse feeling weak & fatigued neuro - no headache CV - no chest pain, no orthopnea pulm - mild cough GI - no abd pain but does feel bloated musculo - denies pain in any limb Physical Exam Physical Exam: gen - NAD, surprisingly alert and oriented; recalled that is at home sick with COVID; knew he was in the hospital and that it was 2022 mouth - MM dry neck - no JVD heart - irregularly irregular, s1 s2 lungs - fine bibasilar dry rales otherwise CTA b/l, no wheeze, no increased work of breathing abd - protuberant/distended, mildly tympanic to percussion, NT, no HSM, BS+ ext - no edema, pulses 2+ b/l musculo - passive ROM of arms/legs elicits no pain; passive ROM of either hip elicits no pain Results & Data Results & Data ([facility]) Vital Signs (Past 12 Hours) Vital Signs Temp Pulse Resp BP Pulse Ox Pulse Ox O2 Del Method 06/19/22 11:20 93 06/19/22 11:41 36.7 C 77 16 131/89 95 Room Air 06/19/22 08:00 Nasal Cannula 06/19/22 07:54 36.5 C 84 15 165/93 H 97 Nasal Cannula O2 Del Method O2 Flow Rate 06/19/22 11:20 Room Air 06/19/22 11:41 06/19/22 08:00 2 06/19/22 07:54 2 Laboratory Results Laboratory Results - last 24 hr 06/19/22 06/19/22 06/19/22 00:01 00:03 00:13 WBC RBC Hgb Hct MCV MCH MCHC RDW Std Deviation RDW Coeff of Carolyn Plt Count MPV Immature Gran % (Auto) Neut % (Auto) Lymph % (Auto) [place] % (Auto) Eos % (Auto) Baso % (Auto) Neut # (Auto) Lymph # (Auto) [place] # (Auto) Eos # (Auto) Baso # (Auto) Immature Gran # (Auto) Sodium Potassium Chloride Carbon Dioxide Anion Gap BUN Creatinine Est Cr Clr Drug Dosing Est GFR ( Amer) Est GFR (Non-Af Amer) BUN/Creatinine Ratio Glucose POC Glucose 302 H* 301 H* Estimat Average Glucose Hemoglobin A1c Calcium AST ALT Total Creatine Kinase Troponin I High Sens 47.4 H C-Reactive Protein Urine Color Urine Appearance Urine pH Ur Specific [place] Urine Protein Urine Glucose (UA) Urine Ketones Urine Blood Urine Nitrite Urine Bilirubin Urine Urobilinogen Ur Leukocyte Esterase Urine WBC (Auto) Urine RBC (Auto) U Hyaline Cast (Auto) U Epithel Cells (Auto) Urine Bacteria (Auto) Urine Yeast 06/19/22 06/19/22 06/19/22 04:09 06:39 06:39 WBC RBC Hgb Hct MCV MCH MCHC RDW Std Deviation RDW Coeff of Carolyn Plt Count MPV Immature Gran % (Auto) Neut % (Auto) Lymph % (Auto) [place] % (Auto) Eos % (Auto) Baso % (Auto) Neut # (Auto) Lymph # (Auto) [place] # (Auto) Eos # (Auto) Baso # (Auto) Immature Gran # (Auto) Sodium Potassium Chloride Carbon Dioxide Anion Gap BUN Creatinine Est Cr Clr Drug Dosing Est GFR ( Amer) Est GFR (Non-Af Amer) BUN/Creatinine Ratio Glucose POC Glucose 235 H Estimat Average Glucose 235 Hemoglobin A1c 9.8 H Calcium AST ALT Total Creatine Kinase Troponin I High Sens 36.2 H D C-Reactive Protein Urine Color Urine Appearance Urine pH Ur Specific [place] Urine Protein Urine Glucose (UA) Urine Ketones Urine Blood Urine Nitrite Urine Bilirubin Urine Urobilinogen Ur Leukocyte Esterase Urine WBC (Auto) Urine RBC (Auto) U Hyaline Cast (Auto) U Epithel Cells (Auto) Urine Bacteria (Auto) Urine Yeast 06/19/22 06/19/22 06/19/22 07:52 08:48 08:48 WBC 12.70 H RBC 5.94 Hgb 16.9 Hct 50.5 MCV 85.0 MCH 28.5 MCHC 33.5 RDW Std Deviation 49.1 H RDW Coeff of Carolyn 16.1 H Plt Count 203 MPV 9.8 Immature Gran % (Auto) 0.3 Neut % (Auto) 84.6 Lymph % (Auto) 6.2 [place] % (Auto) 8.4 Eos % (Auto) 0.2 Baso % (Auto) 0.3 Neut # (Auto) 10.73 H Lymph # (Auto) 0.79 L [place] # (Auto) 1.07 H Eos # (Auto) 0.03 Baso # (Auto) 0.04 Immature Gran # (Auto) 0.04 Sodium 136 Potassium 3.7 Chloride 97 L Carbon Dioxide 30 Anion Gap 9 BUN 76 H D Creatinine 3.42 H D Est Cr Clr Drug Dosing 20.5 Est GFR ( Amer) 18.7 Est GFR (Non-Af Amer) 16.1 BUN/Creatinine Ratio 22.2 H Glucose 226 H POC Glucose 170 H Estimat Average Glucose Hemoglobin A1c Calcium 10.1 AST 89 H ALT 37 Total Creatine Kinase Troponin I High Sens C-Reactive Protein 14.31 H Urine Color Urine Appearance Urine pH Ur Specific [place] Urine Protein Urine Glucose (UA) Urine Ketones Urine Blood Urine Nitrite Urine Bilirubin Urine Urobilinogen Ur Leukocyte Esterase Urine WBC (Auto) Urine RBC (Auto) U Hyaline Cast (Auto) U Epithel Cells (Auto) Urine Bacteria (Auto) Urine Yeast 06/19/22 06/19/22 06/19/22 11:39 15:47 16:40 WBC RBC Hgb Hct MCV MCH MCHC RDW Std Deviation RDW Coeff of Carolyn Plt Count MPV Immature Gran % (Auto) Neut % (Auto) Lymph % (Auto) [place] % (Auto) Eos % (Auto) Baso % (Auto) Neut # (Auto) Lymph # (Auto) [place] # (Auto) Eos # (Auto) Baso # (Auto) Immature Gran # (Auto) Sodium 137 Potassium 3.7 Chloride 98 Carbon Dioxide 28 Anion Gap 11 BUN 82 H Creatinine 3.59 H Est Cr Clr Drug Dosing 19.5 Est GFR ( Amer) 17.6 Est GFR (Non-Af Amer) 15.2 BUN/Creatinine Ratio 22.8 H Glucose 220 H POC Glucose 276 H 163 H Estimat Average Glucose Hemoglobin A1c Calcium 10.0 AST ALT Total Creatine Kinase 1026 H Troponin I High Sens C-Reactive Protein Urine Color Urine Appearance Urine pH Ur Specific [place] Urine Protein Urine Glucose (UA) Urine Ketones Urine Blood Urine Nitrite Urine Bilirubin Urine Urobilinogen Ur Leukocyte Esterase Urine WBC (Auto) Urine RBC (Auto) U Hyaline Cast (Auto) U Epithel Cells (Auto) Urine Bacteria (Auto) Urine Yeast 06/19/22 06/19/22 19:58 Unknown WBC RBC Hgb Hct MCV MCH MCHC RDW Std Deviation RDW Coeff of Carolyn Plt Count MPV Immature Gran % (Auto) Neut % (Auto) Lymph % (Auto) [place] % (Auto) Eos % (Auto) Baso % (Auto) Neut # (Auto) Lymph # (Auto) [place] # (Auto) Eos # (Auto) Baso # (Auto) Immature Gran # (Auto) Sodium Potassium Chloride Carbon Dioxide Anion Gap BUN Creatinine Est Cr Clr Drug Dosing Est GFR ( Amer) Est GFR (Non-Af Amer) BUN/Creatinine Ratio Glucose POC Glucose 127 H Estimat Average Glucose Hemoglobin A1c Calcium AST ALT Total Creatine Kinase Troponin I High Sens C-Reactive Protein Urine Color Yellow Urine Appearance Clear Urine pH 5.0 Ur Specific [place] 1.024 Urine Protein 1+ H Urine Glucose (UA) 3+ H Urine Ketones Negative Urine Blood Negative Urine Nitrite Negative Urine Bilirubin Negative Urine Urobilinogen Negative Ur Leukocyte Esterase Negative Urine WBC (Auto) 1-5 Urine RBC (Auto) 0-4 U Hyaline Cast (Auto) 1-5 U Epithel Cells (Auto) 20-30 H Urine Bacteria (Auto) Negative Urine Yeast Not Reportable PG Care Time/CCT Total # of Minutes Spent Total Time Spent with Patient: Total time spent is greater than 50% in coordination of care (as documented) at patient's floor/unit and/or counseling patient: Coding Level of Care Code 56991 SUB INP/OBS CARE 350MIN Diagnoses Pneumonia due to COVID-19 virus U07.1; J12.82 COPD (chronic obstructive pulmonary disease) J44.9 Rhabdomyolysis M62.82 OLIVER (acute kidney injury) N17.9 Chronic renal failure (CRF), stage 3b N18.32 Diabetes mellitus type 2, uncontrolled Permanent atrial fibrillation I48.21 Chronic systolic CHF (congestive heart failure) I50.22 BPH with obstruction/lower urinary tract symptoms N40.1; N13.8 CAD (coronary artery disease) I25.10 Coronary Disease-Associated Artery/Lesion type: [place] artery [place] vs. transplanted heart: [place] heart Associated angina: without angina Diabetic nephropathy E11.21 Hypertension I10 Hypertension type: essential hypertension Morbid obesity E66.01 Dementia F03.90 Tracheomalacia J39.8 Restrictive lung disease J98.4 DVT prophylaxis Z29.9 (1) CAD (coronary artery disease) Coronary Disease-Associated Artery/Lesion type: [place] artery [place] vs. [place] heart: [place] heart Associated angina: without angina Qualified Code(s): I25.10 - Atherosclerotic heart disease of [place] coronary artery without angina pectoris (2) Hypertension Hypertension type: essential hypertension Qualified Code(s): I10 - Essential (primary) hypertension
[2022-06-19 17:09] LABS: BUN Creatinine Ratio 22.8 (10-20); Creatinine Clr Calc Pharmacy 19.5 ml/min; Est GFR (African American) 17.6 ml/min; Est GFR (Non-African American) 15.2 ml/min; Potassium 3.7 mmol/L (3.5-5.1)
[2022-06-19] MEDS ORDERED: SODIUM CHLORIDE 0.9% 1000ML 1,000 ML IV SCH (19:30)
[2022-06-19] MEDS: CLOPIDOGREL BISULFATE 75 MG TAB PO SCH (20:52)
[2022-06-19] MEDS: LATANOPROST 0.005% OP SOLN 2.5 ML BTL OPB SCH (20:53)
[2022-06-20] MEDS: INSULIN ASPART PER UNIT SC SCH ×6 (00:18→20:13)
[2022-06-20 07:52] LABS: Hematocrit (blood only) 50.2 % (42.0-52.0); Mean Corpuscular Hemoglobin 28.6 pg (25.0-34.0); Mean Corpuscular Hgb Conc 33.9 g/dL (32.0-36.0); Mean Corpuscular Volume 84.5 fL (80.0-100.0); Mean Platelet Volume 9.7 fL (9.4-12.4); Platelet Count 234 K/uL (130-400); RDW Coefficient of Variation 16.5 % (11.5-14.5); RDW Standard Deviation 48.7 fL (36.4-46.3); Red Blood Count 5.94 M/uL (4.70-6.10); White Blood Count 12.72 K/ul (4.8-10.8)
[2022-06-20 08:03] LABS: BUN Creatinine Ratio 28.2 (10-20); C Reactive Protein 7.19 mg/dl (0-0.5); Calcium 9.6 mg/dl (8.5-10.1); Creatinine Clr Calc Pharmacy 23.3 ml/min; Est GFR (African American) 21.8 ml/min; Est GFR (Non-African American) 18.8 ml/min
[2022-06-20] MEDS: SERTRALINE HCL 50 MG TABLET PO SCH (08:21)
[2022-06-20] MEDS: dexAMETHasone 6 MG in SYRINGE 0 ML IV SCH (08:21)
[2022-06-20] MEDS: MAGNESIUM CHLORIDE W/CALCIUM 64MG DELAYED REL TAB PO SCH (08:22)
[2022-06-20] MEDS: FINASTERIDE 5 MG TAB PO SCH (08:22)
[2022-06-20] MEDS: METOPROLOL SUCC 50MG EXT REL TAB PO SCH (08:22)
[2022-06-20] MEDS: TAMSULOSIN HCL 0.4 MG CAP PO SCH (08:22)
[2022-06-20] MEDS: DONEPEZIL HCL 10 MG TAB PO SCH (08:22)
[2022-06-20] MEDS: PANTOprazole 40 MG TAB PO SCH (08:23)
[2022-06-20] MEDS: hydrALAZINE TAB 50 MG TAB PO SCH ×4 (08:23→20:27)
[2022-06-20] MEDS: APIXABAN 5 MG TABLET PO SCH ×2 (08:23→20:28)
[2022-06-20] MEDS: UMECLIDINIUM/VILANTEROL 62.5/25MCG 7 PUFFS/INHALER INH SCH (08:24)
[2022-06-20] MEDS: FLUTICASONE FUROATE 100MCG 14 PUFFS/INHALER INH SCH (08:24)
[2022-06-20] MEDS: VIBEGRON 75 MG PO SCH (08:25)
[2022-06-20] MEDS ORDERED: LANTUS PER UNIT CHARGE SQ SCH (09:00)
--- NOTE | 2022-06-20 10:00 | XRay Report ---
KUB HISTORY: Abdominal distention. COMPARISON: Abdominal MRI 04/12/2020. KUB 12/06/2018. FINDINGS: Borderline dilated gas-filled sigmoid colon. Moderate well-formed stool within the colon.. No dilated loops of small bowel to suggest an obstruction. No renal calculi. No ureteral calculi. Ca lcifications in the deep pelvis likely represent phleboliths. No pneumoperitoneum or pneumatosis. IMPRESSION: Moderate fecal retention. No dilated loops of small bowel to suggest an obstruction. ACT 112: Negative or not required by law. Electronically signed by: Zachary Gonzalez M.D. 06/20/2022 9:59 AM
--- NOTE | 2022-06-20 10:03 | Pharmacy Report ---
Pharmacy Glycemic Short Note 2 - Date of Service June 20, 2022 - Glycemic Short BSG Results (Last 24 hours): 06/19/22 06/19/22 06/19/22 08:48 11:39 15:47 Glucose 226 H 220 H POC Glucose 276 H 06/19/22 06/19/22 06/20/22 16:40 19:58 00:06 Glucose POC Glucose 163 H 127 H 76 06/20/22 06/20/22 06/20/22 03:20 07:20 07:23 Glucose 164 H POC Glucose 149 H 142 H OUTPATIENT ANTIDIABETIC REGIMEN: * Tresiba 22 units Q PM * Novolog 70/30 60 units BID * Januvia 25mg daily * A1c = 9.8% ASSESSMENT: 06/21 * BSGs well controlled over last 24 hrs * 141 units SQ insulin given over last 24 hrs while tolerating diet and while receiving IV dexamethasone 6mg BID * Suspect there may be a degree of non-compliance with outpt insulin regimen given insulin requirements this admission while on high dose steroids * Fasting BSG 142 this AM with 70 units basal on board. * Will begin to titrate down basal insulin dose as BSGs have ranged 76-149 over last 12 hrs and IV steroid dose has been decreased to once daily in AM. * Prandial insulin dose reduced slightly this AM as a precaution as we have a larger dose of basal on board to start the day 06/20 * Poorly controlled type 2 diabetic admitted with resp failure secondary to COVID19 viral pna, COPD exacerbation, restrictive lung dz * Hyperglycemic on admission and persistently hyperglycemic in the setting of high dose IV steroid provision * Dexamethasone IV has been ordered as 6mg BID. Typically would utilize NPH to address once daily IV dexamethasone use, but given this patient's high outpt insulin requirements (~140 units/day) and the steroid is being dosed BID, he may be better controlled utilizing aggressive rapid acting insulin regimen along with BID Lantus. * Will base initial insulin dose upon reported outpt insulin requirements of ~140 units/day. Will follow BSG trends and adjust as necessary PLAN FOR INPATIENT GLYCEMIC CONTROL: * Hold outpatient diabetes medications * Basal insulin * Lantus 25 units SQ x 1 this AM, then dose per scale this PM (0 units if less than 110, 18 units if BSG 110-200, 25 units if BSG greater than 200) * Bolus insulin * NovoLog per scale ACHS and at 0200 tonight given changing stressors and recent insulin adjustments * Goal Range: Low 110 mg/dL - High 140 mg/dL * Correction Factor: 10 mg/dL/unit * Nutritional / Prandial insulin per carb ratio of 1 unit per 3 grams CHO consumed
--- NOTE | 2022-06-20 18:09 | Hospitalist Progress Note ---
Date of Service June 20, 2022 Assessment & Plan (1) Pneumonia due to COVID-19 virus: Plan: The patient has known chronic lung disease (COPD, restrictive lung disease, tracheomalacia). CXR with "Chronic" appearing interstitial changes per radiology. I cannot rule out that he has element of COVID-19 pneumonia. Remains stable on RA at this time. He was given solumedrol 125mg IV x 1 in ER on 06/18/22 for suspected COVID pneumonia. He was then placed on dexamethasone 6mg IV BID--> decrease to once daily Cont home inhalers. Albuterol prn. Pulmonary toilet with flutter valve and incentive spirometry. (2) COPD (chronic obstructive pulmonary disease): Plan: cont all home inhalers pulm toilet IV dexamethasone albuterol prn (3) Rhabdomyolysis: Plan: 2nd to fall at home. CPK ~1000. hydrate, repeat CPK now down to 574 The elevated CPK may explain the elevated AST. follow LFTs, CPK in AM (4) OLIVER (acute kidney injury): Plan: in setting of stage 3B CKD with baseline Cr 2 to 2.5 presented with Cr 2.8; now he is improving down to 3.0 etiology - rhabdomyolysis less likely as mild rhabdo. COuld be volume contraction or obstructive-500mL PVR- Now with Amaro in place draining urine -follw BMP in AM (5) Chronic renal failure (CRF), stage 3b: Plan: baseline CrCl low 30s baseline Creatinine 2 to 2.5 daily BMP (6) Diabetes mellitus type 2, uncontrolled: Plan: Hba1c 9.8% Pharmacy has been consulted for glycemic management Cont on basal-bolus insulin Appreciate pharmacy assistance (7) Permanent atrial fibrillation: Plan: rates controlled at this time with metoprolol succinate 100mg daily -continue Eliquis 5mg BID for chronic AC cont tele monitoring (8) Chronic systolic CHF (congestive heart failure): Plan: EF 45-50% on echo in 2019. This should be repeated at some point. He does not appear volume overloaded. If anything he appears volume contracted. He uses lasix on sliding scale basis. If weight is 239 or less he takes 40mg/day. 240-245 - he takes 60mg/day of lasix. >245 - takes 80mg/day of lasix. HOLD Lasix for OLIVER (9) BPH with obstruction/lower urinary tract symptoms: Plan: with resulting urinary retention has a h/o bladder CA, last cysto 12/2021 normal cont flomax cont finasteride amaro now in place admission u/a not suggestive of UTI f/u with Urology at [place] with Dr. Brenner after discharge for TOV (10) CAD (coronary artery disease): Plan: cont plavix qod cont metoprolol no ischemic symptoms at this time HS trop scantly elevated with peak of 56 -- likely myocardial demand ischemia in setting of his COVID infection, fall, etc (11) Diabetic nephropathy: Plan: baseline Cr 2 to 2.5 (12) Hypertension: Plan: acceptable readings since admission (13) Morbid obesity: Plan: BMI 35 (14) Dementia: Plan: cont aricept (15) Tracheomalacia: Plan: no Rx needed noted on prior CT scans follows with Dr Ervin (16) Restrictive lung disease: Plan: severe based on prior PFTs 2nd obesity? other? no thing to do at this time (17) DVT prophylaxis: Plan: Eliquis 5mg BID Plan Dispo-continued stay, improving, await PT/OT evals tomorrow Discussed care with on phone on 06/20 Admission and Anticipated Discharge Date Admission Date: June 18, 2022 Subjective Feeling fine, has no complaints. Denies cough or SOB, no CP. Is eating. Weaned to room air since yesterday. Tele with Afib, rates 80s Review of Systems Review of Systems: All systems reviewed & are unremarkable except as noted in HPI & below Physical Exam Physical Exam: gen - NAD, AAOx2 heart - irregularly irregular, normal rate, no mgr lungs - fine bibasilar dry rales otherwise CTA b/l, no wheeze, no increased work of breathing abd - +BS soft NT ND ext - no edema Results & Data Results & Data ([facility]) Vital Signs (Past 12 Hours) Vital Signs Temp Pulse Resp BP Pulse Ox O2 Del Method 06/20/22 15:46 36.8 C 78 18 140/77 94 Room Air 06/20/22 11:22 36.9 C 80 24 151/84 H 94 Room Air 06/20/22 07:23 167/99 H 06/20/22 07:22 37 C 93 H 19 155/109 H 96 Room Air Laboratory Results BMP and CBC reviewed PG Care Time/CCT Total # of Minutes Spent Total Time Spent with Patient: Total time spent is greater than 50% in coordination of care (as documented) at patient's floor/unit and/or counseling patient: Coding Level of Care Code 44365 SUB INP/OBS CARE 3/50MIN Diagnoses Pneumonia due to COVID-19 virus U07.1; J12.82 COPD (chronic obstructive pulmonary disease) J44.9 Rhabdomyolysis M62.82 OLIVER (acute kidney injury) N17.9 Chronic renal failure (CRF), stage 3b N18.32 Diabetes mellitus type 2, uncontrolled Permanent atrial fibrillation I48.21 Chronic systolic CHF (congestive heart failure) I50.22 BPH with obstruction/lower urinary tract symptoms N40.1; N13.8 CAD (coronary artery disease) I25.10 Associated angina: without angina Coronary Disease-Associated Artery/Lesion type: [place] artery [place] vs. transplanted heart: [place] heart Diabetic nephropathy E11.21 Hypertension I10 Hypertension type: essential hypertension Morbid obesity E66.01 Dementia F03.90 Tracheomalacia J39.8 Restrictive lung disease J98.4 DVT prophylaxis Z29.9 (1) CAD (coronary artery disease) Associated angina: without angina Coronary Disease-Associated Artery/Lesion type: [place] artery [place] vs. transplanted heart: [place] heart Qualified Code(s): I25.10 - Atherosclerotic heart disease of [place] coronary artery without angina pectoris (2) Hypertension Hypertension type: essential hypertension Qualified Code(s): I10 - Essential (primary) hypertension
[2022-06-20] MEDS: LANTUS PER UNIT CHARGE SQ SCH (20:14)
[2022-06-20] MEDS: LATANOPROST 0.005% OP SOLN 2.5 ML BTL OPB SCH (20:28)
[2022-06-21] MEDS ORDERED: INSULIN ASPART PER UNIT SC SCH (02:00)
[2022-06-21] MEDS: dexAMETHasone 6 MG in SYRINGE 0 ML IV SCH (08:09)
[2022-06-21] MEDS: PANTOprazole 40 MG TAB PO SCH (08:10)
[2022-06-21] MEDS: FINASTERIDE 5 MG TAB PO SCH (08:10)
[2022-06-21] MEDS: TAMSULOSIN HCL 0.4 MG CAP PO SCH (08:10)
[2022-06-21] MEDS: SERTRALINE HCL 50 MG TABLET PO SCH (08:10)
[2022-06-21] MEDS: DONEPEZIL HCL 10 MG TAB PO SCH (08:10)
[2022-06-21] MEDS: hydrALAZINE TAB 50 MG TAB PO SCH ×4 (08:11→21:43)
[2022-06-21] MEDS: MAGNESIUM CHLORIDE W/CALCIUM 64MG DELAYED REL TAB PO SCH (08:11)
[2022-06-21] MEDS: METOPROLOL SUCC 50MG EXT REL TAB PO SCH (08:11)
[2022-06-21] MEDS: UMECLIDINIUM/VILANTEROL 62.5/25MCG 7 PUFFS/INHALER INH SCH (08:12)
[2022-06-21] MEDS: FLUTICASONE FUROATE 100MCG 14 PUFFS/INHALER INH SCH (08:12)
[2022-06-21] MEDS: APIXABAN 5 MG TABLET PO SCH ×2 (08:12→21:44)
[2022-06-21] MEDS: VIBEGRON 75 MG PO SCH (08:13)
[2022-06-21] MEDS: INSULIN ASPART PER UNIT SC SCH ×4 (08:53→20:22)
[2022-06-21 10:16] LABS: Albumin Level 3.5 gm/dl (3.4-5.0); BUN Creatinine Ratio 29.4 (10-20); Bilirubin Direct 0.1 mg/dl (0-0.2); Bilirubin,Total 0.6 mg/dl (0.2-1.0); Calcium 8.6 mg/dl (8.5-10.1); Creatinine Clr Calc Pharmacy 28.6 ml/min; Est GFR (Non-African American) 24.1 ml/min; Potassium 3.5 mmol/L (3.5-5.1); Total Protein 6.7 gm/dl (6.0-8.3)
--- NOTE | 2022-06-21 12:17 | Pharmacy Report ---
Pharmacy Glycemic Short Note 2 - Date of Service June 21, 2022 - Glycemic Short BSG Results (Last 24 hours): 06/20/22 06/20/22 06/20/22 11:21 16:47 20:01 Glucose POC Glucose 188 H 80 95 06/21/22 06/21/22 06/21/22 02:01 07:53 09:02 Glucose 140 H POC Glucose 131 H 73 06/21/22 11:27 Glucose POC Glucose 80 OUTPATIENT ANTIDIABETIC REGIMEN: * Tresiba 22 units Q PM * Novolog 70/30 60 units BID * Januvia 25mg daily * A1c = 9.8% ASSESSMENT: 06/22: * Patient received a total of 66 units of insulin yesterday, 25 of which was basal * BSG well controlled yesterday but downtrended yesterday evening into this morning * Fasting this morning was 72 mg/dL. Held basal insulin this morning and lunch BSG remained on the lower end at 80 mg/dL * Patient continues on Dexamethasone and is ordered a diet. * Patient requiring significantly less insulin compared to outpatient dosing, despite steroid use. Will proceed with a reduced insulin scale this evening. Novolog scale loosened 06/21 * BSGs well controlled over last 24 hrs * 141 units SQ insulin given over last 24 hrs while tolerating diet and while receiving IV dexamethasone 6mg BID * Suspect there may be a degree of non-compliance with outpt insulin regimen given insulin requirements this admission while on high dose steroids * Fasting BSG 142 this AM with 70 units basal on board. * Will begin to titrate down basal insulin dose as BSGs have ranged 76-149 over last 12 hrs and IV steroid dose has been decreased to once daily in AM. * Prandial insulin dose reduced slightly this AM as a precaution as we have a larger dose of basal on board to start the day 06/20 * Poorly controlled type 2 diabetic admitted with resp failure secondary to COVID19 viral pna, COPD exacerbation, restrictive lung dz * Hyperglycemic on admission and persistently hyperglycemic in the setting of high dose IV steroid provision * Dexamethasone IV has been ordered as 6mg BID. Typically would utilize NPH to address once daily IV dexamethasone use, but given this patient's high outpt insulin requirements (~140 units/day) and the steroid is being dosed BID, he may be better controlled utilizing aggressive rapid acting insulin regimen along with BID Lantus. * Will base initial insulin dose upon reported outpt insulin requirements of ~140 units/day. Will follow BSG trends and adjust as necessary PLAN FOR INPATIENT GLYCEMIC CONTROL: * Hold outpatient diabetes medications * Basal insulin * Lantus held this morning * Per scale this PM (0 units if less than 120, 10 units if BSG 110-200, 18 units if BSG greater than 200) * Bolus insulin * NovoLog per scale ACHS and at 0200 tonight given changing stressors and recent insulin adjustments * Goal Range: Low 110 mg/dL - High 140 mg/dL * Correction Factor: 20 mg/dL/unit * Nutritional / Prandial insulin per carb ratio of 1 unit per 6 grams CHO consumed
--- NOTE | 2022-06-21 19:16 | Hospitalist Progress Note ---
Date of Service June 21, 2022 Assessment & Plan (1) Pneumonia due to COVID-19 virus: Plan: The patient has known chronic lung disease (COPD, restrictive lung disease, tracheomalacia). CXR with "Chronic" appearing interstitial changes per radiology. I cannot rule out that he has element of COVID-19 pneumonia. Remains stable on RA at this time. He was given solumedrol 125mg IV x 1 in ER on 06/18/22 for suspected COVID pneumonia. He was then placed on dexamethasone 6mg IV BID--> then decreased to once daily Cont home inhalers. Albuterol prn. Pulmonary toilet with flutter valve and incentive spirometry. Improving (2) COPD (chronic obstructive pulmonary disease): Plan: with acute exacerbation cont all home inhalers pulm toilet IV dexamethasone albuterol prn Improving (3) Rhabdomyolysis: Plan: 2nd to fall at home. CPK ~1000. hydrated, repeat CPK now down to 300 The elevated CPK may explain the elevated AST which is also now improving (4) OLIVER (acute kidney injury): Plan: in setting of stage 3B CKD with baseline Cr 2 to 2.5 presented with Cr 2.8 and then went up now he is improving down to 2.5 which is baseline making urine, Amaro in place for retention etiology - rhabdomyolysis less likely as mild rhabdo. COuld be volume contraction or obstructive-500mL PVR- Now with Amaro in place draining urine -follow BMP in AM (5) Chronic renal failure (CRF), stage 3b: Plan: baseline CrCl low 30s baseline Creatinine 2 to 2.5 -Avoid nephrotoxins -renally dose meds when appropriate -follow BMP (6) Diabetes mellitus type 2, uncontrolled: Plan: Hba1c 9.8% Pharmacy has been consulted for glycemic management Cont on basal-bolus insulin Appreciate pharmacy assistance (7) Permanent atrial fibrillation: Plan: rates 80-90s but BPs elevated at this time with metoprolol succinate 100mg daily -continue Eliquis 5mg BID for chronic AC cont tele monitoring -increase Toprol to 100mg qAM and add 25mg qPM (8) Chronic systolic CHF (congestive heart failure): Plan: EF 45-50% on echo in 2019. This should be repeated at some point. He does not appear volume overloaded. If anything he appeared volume contracted and now euvolemic He uses lasix on sliding scale basis. If weight is 239 or less he takes 40mg/day. 240-245 - he takes 60mg/day of lasix. >245 - takes 80mg/day of lasix. HOLD Lasix for OLIVER (9) BPH with obstruction/lower urinary tract symptoms: Plan: with resulting urinary retention has a h/o bladder CA, last cysto 12/2021 normal cont flomax cont finasteride amaro now in place admission u/a not suggestive of UTI f/u with Urology at [place] with Dr. Brenner after discharge for TOV (10) CAD (coronary artery disease): Plan: cont plavix qod cont metoprolol no ischemic symptoms at this time HS trop scantly elevated with peak of 56 -- likely myocardial demand ischemia in setting of his COVID infection, fall, etc (11) Diabetic nephropathy: Plan: baseline Cr 2 to 2.5 (12) Hypertension: Plan: BPs elevated now increase Toprol (13) Morbid obesity: Plan: BMI 35 (14) Dementia: Plan: cont aricept (15) Tracheomalacia: Plan: no Rx needed noted on prior CT scans follows with Dr Ervin (16) Restrictive lung disease: Plan: severe based on prior PFTs 2nd obesity? other? no thing to do at this time (17) DVT prophylaxis: Plan: Eliquis 5mg BID Plan Dispo-continued stay, improving, PT/OT recommends rehab-awaiting placement Discussed care with on phone on 06/20 and again on 06/21 Admission and Anticipated Discharge Date Admission Date: June 18, 2022 Subjective Feels fine, no complaints. Moving bowels, eating, was OOB with PT today. Is agreeable to rehab placement as recommended Tele with Afib, rates 80-90s Physical Exam Physical Exam: gen - NAD, AAOx2 heart - irregularly irregular, normal rate, no mgr lungs - fine bibasilar dry rales otherwise CTA b/l, no wheeze, no increased work of breathing abd - +BS soft NT ND, Amaro in place ext - no edema Results & Data Results & Data ([facility]) Vital Signs (Past 12 Hours) Vital Signs Temp Pulse Resp BP Pulse Ox Pulse Ox O2 Del Method 06/21/22 14:53 93 06/21/22 14:39 94 06/21/22 11:29 36.9 C 84 19 186/102 H 94 Room Air 06/21/22 07:57 37.0 C 94 H 18 164/93 H 92 Room Air O2 Flow Rate 06/21/22 14:53 06/21/22 14:39 0 06/21/22 11:29 06/21/22 07:57 Laboratory Results CMP, CPK reviewed PG Care Time/CCT Total # of Minutes Spent Total Time Spent with Patient: Total time spent is greater than 50% in coordination of care (as documented) at patient's floor/unit and/or counseling patient: Coding Level of Care Code 77922 SUB INP/OBS CARE 350MIN Diagnoses Pneumonia due to COVID-19 virus U07.1; J12.82 COPD (chronic obstructive pulmonary disease) J44.9 Rhabdomyolysis M62.82 OLIVER (acute kidney injury) N17.9 Chronic renal failure (CRF), stage 3b N18.32 Diabetes mellitus type 2, uncontrolled Permanent atrial fibrillation I48.21 Chronic systolic CHF (congestive heart failure) I50.22 BPH with obstruction/lower urinary tract symptoms N40.1; N13.8 CAD (coronary artery disease) I25.10 Associated angina: without angina Coronary Disease-Associated Artery/Lesion type: [place] artery [place] vs. transplanted heart: [place] heart Diabetic nephropathy E11.21 Hypertension I10 Hypertension type: essential hypertension Morbid obesity E66.01 Dementia F03.90 Tracheomalacia J39.8 Restrictive lung disease J98.4 DVT prophylaxis Z29.9 (1) CAD (coronary artery disease) Associated angina: without angina Coronary Disease-Associated Artery/Lesion type: [place] artery [place] vs. transplanted heart: [place] heart Qualified Code(s): I25.10 - Atherosclerotic heart disease of [place] coronary artery without angina pectoris (2) Hypertension Hypertension type: essential hypertension Qualified Code(s): I10 - Essential (primary) hypertension
[2022-06-21] MEDS: LANTUS PER UNIT CHARGE SQ SCH (20:23)
[2022-06-21] MEDS: METOPROLOL SUCC 25MG EXT REL TAB PO SCH (21:42)
[2022-06-21] MEDS: CLOPIDOGREL BISULFATE 75 MG TAB PO SCH (21:43)
[2022-06-21] MEDS: LATANOPROST 0.005% OP SOLN 2.5 ML BTL OPB SCH (21:44)
[2022-06-22] MEDS: APIXABAN 5 MG TABLET PO SCH ×3 (00:01→20:04)
[2022-06-22] MEDS: CLOPIDOGREL BISULFATE 75 MG TAB PO SCH (00:01)
[2022-06-22] MEDS: hydrALAZINE TAB 50 MG TAB PO SCH ×5 (00:03→20:04)
[2022-06-22] MEDS: METOPROLOL SUCC 25MG EXT REL TAB PO SCH ×2 (00:03→20:04)
[2022-06-22] MEDS ORDERED: NITROGLYCERIN 2% OINTMENT 30GM TUBE EXT PRN (02:04)
[2022-06-22] MEDS ORDERED: APIXABAN 5 MG TABLET PO STA (02:52)
[2022-06-22] MEDS ORDERED: hydrALAZINE TAB 50 MG TAB PO STA (02:55)
[2022-06-22] MEDS ORDERED: CLOPIDOGREL BISULFATE 75 MG TAB PO ONE (02:59)
[2022-06-22] MEDS ORDERED: METOPROLOL SUCC 25MG EXT REL TAB PO STA (03:18)
[2022-06-22] MEDS: INSULIN ASPART PER UNIT SC SCH ×4 (08:59→20:08)
[2022-06-22] MEDS: LANTUS PER UNIT CHARGE SQ SCH ×2 (09:00→20:16)
[2022-06-22] MEDS: VIBEGRON 75 MG PO SCH (09:06)
[2022-06-22] MEDS: dexAMETHasone 6 MG in SYRINGE 0 ML IV SCH (09:06)
[2022-06-22] MEDS: UMECLIDINIUM/VILANTEROL 62.5/25MCG 7 PUFFS/INHALER INH SCH (09:07)
[2022-06-22] MEDS: FLUTICASONE FUROATE 100MCG 14 PUFFS/INHALER INH SCH (09:07)
[2022-06-22] MEDS: SERTRALINE HCL 50 MG TABLET PO SCH (09:08)
[2022-06-22] MEDS: TAMSULOSIN HCL 0.4 MG CAP PO SCH (09:08)
[2022-06-22] MEDS: DONEPEZIL HCL 10 MG TAB PO SCH (09:08)
[2022-06-22] MEDS: MAGNESIUM CHLORIDE W/CALCIUM 64MG DELAYED REL TAB PO SCH (09:09)
[2022-06-22] MEDS: METOPROLOL SUCC 50MG EXT REL TAB PO SCH (09:09)
[2022-06-22] MEDS: PANTOprazole 40 MG TAB PO SCH (09:09)
[2022-06-22] MEDS: FINASTERIDE 5 MG TAB PO SCH (09:10)
[2022-06-22 09:48] LABS: Basophils # (auto) 0.04 K/uL (0-0.2); Basophils % (auto) 0.5 %; Eosinophils # (auto) 0.16 K/uL (0-0.50); Hemoglobin 16.9 g/dl (14.0-18.0); Immature Granulocytes # (auto) 0.05 K/uL (0.01-0.20); Immature Granulocytes % (auto) 0.6 %; Lymphocytes % (auto) 11.1 %; Mean Corpuscular Hemoglobin 28.5 pg (25.0-34.0); Mean Corpuscular Hgb Conc 33.1 g/dL (32.0-36.0); Mean Corpuscular Volume 86.1 fL (80.0-100.0); Mean Platelet Volume 9.9 fL (9.4-12.4); Monocytes % (auto) 11.1 %; Neutrophils # (auto) 6.09 K/uL (1.40-6.50); Neutrophils % (auto) 74.7 %; Platelet Count 196 K/uL (130-400); RDW Coefficient of Variation 16.4 % (11.5-14.5); RDW Standard Deviation 49.6 fL (36.4-46.3); Red Blood Count 5.92 M/uL (4.70-6.10); White Blood Count 8.14 K/ul (4.8-10.8)
[2022-06-22 09:50] LABS: Albumin Globulin Ratio 1.2 (0.9-2); Albumin Level 3.7 gm/dl (3.4-5.0); BUN Creatinine Ratio 29.2 (10-20); Bilirubin,Total 0.7 mg/dl (0.2-1.0); C Reactive Protein 2.61 mg/dl (0-0.5); Calcium 8.9 mg/dl (8.5-10.1); Creatinine Clr Calc Pharmacy 31.8 ml/min; Est GFR (Non-African American) 27.6 ml/min; Globulin 3.2 gm/dl (2.5-4.0); Magnesium 2.3 mg/dl (1.7-2.4); Potassium 3.6 mmol/L (3.5-5.1); Total Protein 6.9 gm/dl (6.0-8.3)
[2022-06-22] MEDS ORDERED: LANTUS PER UNIT CHARGE SQ STA (12:25)
--- NOTE | 2022-06-22 12:46 | Pharmacy Report ---
Pharmacy Glycemic Short Note 2 - Date of Service June 22, 2022 - Glycemic Short BSG Results (Last 24 hours): 06/21/22 06/21/22 06/22/22 17:04 20:20 08:34 Glucose POC Glucose 143 H 91 301 H* 06/22/22 06/22/22 06/22/22 08:35 08:40 08:45 Glucose 161 H POC Glucose 164 H 153 H 06/22/22 11:50 Glucose POC Glucose 257 H OUTPATIENT ANTIDIABETIC REGIMEN: * Tresiba 22 units Q PM * Novolog 70/30 60 units BID * Januvia 25mg daily * A1c = 9.8% ASSESSMENT: 06/23: * Patient did not receive any basal insulin yesterday as BSGs remained on the lower end but did receive 14 units of basal insulin. * Downtrend of BSGs could be do in part to OLIVER contributing to delayed elimination of previous larger doses of lantus. * Fasting BSG increased today to 164/153 (the 301 mg/dL level thought to be erroneous). Restarted low dose basal insulin. Lunchtime BSG trended up again to 257. Will supplement morning dose of Lantus and adjust scale for this evening. Will also add overnight checks. Novolog CR may need to be tightened again based on trend. * Patient remains on dexamethasone and is tolerating a diet. 06/22: * Patient received a total of 66 units of insulin yesterday, 25 of which was basal * BSG well controlled yesterday but downtrended yesterday evening into this morning * Fasting this morning was 72 mg/dL. Held basal insulin this morning and lunch BSG remained on the lower end at 80 mg/dL * Patient continues on Dexamethasone and is ordered a diet. * Patient requiring significantly less insulin compared to outpatient dosing, despite steroid use. Will proceed with a reduced insulin scale this evening. Novolog scale loosened 06/21 * BSGs well controlled over last 24 hrs * 141 units SQ insulin given over last 24 hrs while tolerating diet and while receiving IV dexamethasone 6mg BID * Suspect there may be a degree of non-compliance with outpt insulin regimen given insulin requirements this admission while on high dose steroids * Fasting BSG 142 this AM with 70 units basal on board. * Will begin to titrate down basal insulin dose as BSGs have ranged 76-149 over last 12 hrs and IV steroid dose has been decreased to once daily in AM. * Prandial insulin dose reduced slightly this AM as a precaution as we have a larger dose of basal on board to start the day 06/20 * Poorly controlled type 2 diabetic admitted with resp failure secondary to COVID19 viral pna, COPD exacerbation, restrictive lung dz * Hyperglycemic on admission and persistently hyperglycemic in the setting of high dose IV steroid provision * Dexamethasone IV has been ordered as 6mg BID. Typically would utilize NPH to address once daily IV dexamethasone use, but given this patient's high outpt insulin requirements (~140 units/day) and the steroid is being dosed BID, he may be better controlled utilizing aggressive rapid acting insulin regimen along with BID Lantus. * Will base initial insulin dose upon reported outpt insulin requirements of ~140 units/day. Will follow BSG trends and adjust as necessary PLAN FOR INPATIENT GLYCEMIC CONTROL: * Hold outpatient diabetes medications * Basal insulin * Lantus 10 units this morning + another 10 units supplemented at lunchtime * Per scale this PM (0 units if less than 120, 5 units if BSG 110-220, 10 units if BSG greater than 220) * Bolus insulin * NovoLog per scale ACHS and overnight checks * Goal Range: Low 110 mg/dL - High 140 mg/dL * Correction Factor: 20 mg/dL/unit * Nutritional / Prandial insulin per carb ratio of 1 unit per 6 grams CHO consumed
--- NOTE | 2022-06-22 19:18 | Hospitalist Progress Note ---
Date of Service June 22, 2022 Assessment & Plan (1) Pneumonia due to COVID-19 virus: Plan: The patient has known chronic lung disease (COPD, restrictive lung disease, tracheomalacia). CXR with "Chronic" appearing interstitial changes per radiology. I cannot rule out that he has element of COVID-19 pneumonia. Remains stable on RA at this time. He was given solumedrol 125mg IV x 1 in ER on 06/18/22 for suspected COVID pneumonia. He was then placed on dexamethasone 6mg IV BID--> then decreased to once daily Cont home inhalers. Albuterol prn. Pulmonary toilet with flutter valve and incentive spirometry. Improving (2) COPD (chronic obstructive pulmonary disease): Plan: with acute exacerbation cont all home inhalers pulm toilet IV dexamethasone albuterol prn Improving (3) Rhabdomyolysis: Plan: 2nd to fall at home. CPK ~1000. hydrated, repeat CPK now down to 300 The elevated CPK may explain the elevated AST which is also now improving (4) OLIVER (acute kidney injury): Plan: in setting of stage 3B CKD with baseline Cr 2 to 2.5 presented with Cr 2.8 and then went up now he is improving down to 2.1 which is better than his baseline making urine, Amaro in place for retention etiology - rhabdomyolysis less likely as mild rhabdo. COuld be volume c ontraction or obstructive-500mL PVR- Now with Amaro in place draining urine -follow BMP in AM (5) Chronic renal failure (CRF), stage 3b: Plan: baseline CrCl low 30s baseline Creatinine 2 to 2.5 -Avoid nephrotoxins -renally dose meds when appropriate -follow BMP (6) Diabetes mellitus type 2, uncontrolled: Plan: Hba1c 9.8% Pharmacy has been consulted for glycemic management Cont on basal-bolus insulin Appreciate pharmacy assistance (7) Permanent atrial fibrillation: Plan: rates abd BP better controlled with increased dose now of metoprolol succinate 100/25mg -continue Eliquis 5mg BID for chronic AC cont tele monitoring -continue increased dose of Toprol to 100mg qAM and add 25mg qPM (8) Chronic systolic CHF (congestive heart failure): Plan: EF 45-50% on echo in 2019. This should be repeated at some point. He does not appear volume overloaded. If anything he appeared volume contracted and now euvolemic He uses lasix on sliding scale basis. If weight is 239 or less he takes 40mg/day. 240-245 - he takes 60mg/day of lasix. >245 - takes 80mg/day of lasix. Weight now 227 lbs--> will resume lasix 40mg daily for tomorrow (9) BPH with obstruction/lower urinary tract symptoms: Plan: with resulting urinary retention has a h/o bladder CA, last cysto 12/2021 normal cont flomax cont finasteride amaro now in place admission u/a not suggestive of UTI f/u with Urology at [place] with Dr. Brenner after discharge for TOV (10) CAD (coronary artery disease): Plan: cont plavix qod cont metoprolol no ischemic symptoms at this time HS trop scantly elevated with peak of 56 -- likely myocardial demand ischemia in setting of his COVID infection, fall, etc (11) Diabetic nephropathy: Plan: baseline Cr 2 to 2.5 (12) Hypertension: Plan: BPs elevated now increase Toprol (13) Morbid obesity: Plan: BMI 35 (14) Dementia: Plan: cont aricept (15) Tracheomalacia: Plan: no Rx needed noted on prior CT scans follows with Dr Ervin (16) Restrictive lung disease: Plan: severe based on prior PFTs 2nd obesity? other? no thing to do at this time (17) DVT prophylaxis: Plan: Eliquis 5mg BID Plan Dispo-continued stay, improving, PT/OT recommends rehab-awaiting placement- referrals made today Discussed care with on phone on 06/20 and again on 06/21 Admission and Anticipated Discharge Date Admission Date: June 18, 2022 Subjective denies problems, no cough, eating well. happy tele with afib, rates better controlle din 70-80d Physical Exam Physical Exam: gen - NAD, AAOx2 heart - irregularly irregular, normal rate, no mgr lungs - fine bibasilar dry rales otherwise CTA b/l, no wheeze, no increased work of breathing abd - +BS soft NT ND, Amaro in place ext - no edema Results & Data Results & Data ([facility]) Vital Signs (Past 12 Hours) Vital Signs Temp Pulse Resp BP Pulse Ox O2 Del Method 06/22/22 16:59 36.8 C 76 19 164/75 H 96 Room Air 06/22/22 12:24 36.9 C 68 18 137/77 94 Room Air 06/22/22 08:37 36.9 C 78 19 173/96 H 92 Room Air Laboratory Results BMP reviewed, CBC rreviewed PG Care Time/CCT Total # of Minutes Spent Total Time Spent with Patient: Total time spent is greater than 50% in coordination of care (as documented) at patient's floor/unit and/or counseling patient: Coding Level of Care Code 42210 SUB INP/OBS CARE MIN Diagnoses Pneumonia due to COVID-19 virus U07.1; J12.82 COPD (chronic obstructive pulmonary disease) J44.9 Rhabdomyolysis M62.82 OLIVER (acute kidney injury) N17.9 Chronic renal failure (CRF), stage 3b N18.32 Diabetes mellitus type 2, uncontrolled Permanent atrial fibrillation I48.21 Chronic systolic CHF (congestive heart failure) I50.22 BPH with obstruction/lower urinary tract symptoms N40.1; N13.8 CAD (coronary artery disease) I25.10 Coronary Disease-Associated Artery/Lesion type: [place] artery [place] vs. transplanted heart: [place] heart Associated angina: without angina Diabetic nephropathy E11.21 Hypertension I10 Hypertension type: essential hypertension Morbid obesity E66.01 Dementia F03.90 Tracheomalacia J39.8 Restrictive lung disease J98.4 DVT prophylaxis Z29.9 (1) CAD (coronary artery disease) Coronary Disease-Associated Artery/Lesion type: [place] artery [place] vs. transplanted heart: [place] heart Associated angina: without angina Qualified Code(s): I25.10 - Atherosclerotic heart disease of [place] coronary artery without angina pectoris (2) Hypertension Hypertension type: essential hypertension Qualified Code(s): I10 - Essential (primary) hypertension
[2022-06-22] MEDS: LATANOPROST 0.005% OP SOLN 2.5 ML BTL OPB SCH (20:04)
[2022-06-23] MEDS: INSULIN ASPART PER UNIT SC SCH ×6 (00:36→20:46)
[2022-06-23] MEDS: LANTUS PER UNIT CHARGE SQ SCH (08:40)
[2022-06-23] MEDS: FUROSEMIDE 40 MG TAB PO SCH (08:52)
[2022-06-23] MEDS: MAGNESIUM CHLORIDE W/CALCIUM 64MG DELAYED REL TAB PO SCH (08:52)
[2022-06-23] MEDS: SERTRALINE HCL 50 MG TABLET PO SCH (08:52)
[2022-06-23] MEDS: PANTOprazole 40 MG TAB PO SCH (08:52)
[2022-06-23] MEDS: dexAMETHasone 6 MG in SYRINGE 0 ML IV SCH (08:52)
[2022-06-23] MEDS: FINASTERIDE 5 MG TAB PO SCH (08:52)
[2022-06-23] MEDS: METOPROLOL SUCC 50MG EXT REL TAB PO SCH (08:52)
[2022-06-23] MEDS: TAMSULOSIN HCL 0.4 MG CAP PO SCH (08:52)
[2022-06-23] MEDS: hydrALAZINE TAB 50 MG TAB PO SCH ×4 (08:52→21:00)
[2022-06-23] MEDS: UMECLIDINIUM/VILANTEROL 62.5/25MCG 7 PUFFS/INHALER INH SCH (08:53)
[2022-06-23] MEDS: VIBEGRON 75 MG PO SCH (08:53)
[2022-06-23] MEDS: FLUTICASONE FUROATE 100MCG 14 PUFFS/INHALER INH SCH (08:53)
[2022-06-23] MEDS: DONEPEZIL HCL 10 MG TAB PO SCH (08:53)
[2022-06-23] MEDS ORDERED: LANTUS PER UNIT CHARGE SQ ONE ×2 (09:15→21:00)
[2022-06-23 09:30] LABS: BUN Creatinine Ratio 25.7 (10-20); Creatinine Clr Calc Pharmacy 31.4 ml/min; Est GFR (African American) 31.5 ml/min; Est GFR (Non-African American) 27.2 ml/min; Magnesium 2.2 mg/dl (1.7-2.4); Potassium 4.3 mmol/L (3.5-5.1)
[2022-06-23] MEDS: APIXABAN 5 MG TABLET PO SCH ×2 (10:28→21:18)
--- NOTE | 2022-06-23 13:08 | Pharmacy Report ---
Pharmacy Glycemic Short Note 2 - Date of Service June 23, 2022 - Glycemic Short BSG Results (Last 24 hours): 06/22/22 06/22/22 06/23/22 16:58 20:05 00:36 Glucose POC Glucose 206 H 128 H 114 H 06/23/22 06/23/22 06/23/22 03:38 07:55 08:50 Glucose 195 H POC Glucose 138 H 156 H 06/23/22 12:02 Glucose POC Glucose 97 OUTPATIENT ANTIDIABETIC REGIMEN: * Tresiba 22 units Q PM * Novolog 70/30 60 units BID * Januvia 25mg daily * A1c = 9.8% ASSESSMENT: 06/23: * Patient received 25 units of basal insulin yesterday, Fasting 156 mg/dL on lab. Will give 20 units of lantus this morning and scale for PM * Lunch BSG 97 mg/dL. Will loosen carb ratio. * Patient continues on dexamethasone 6 mg daily. 06/22: * Patient did not receive any basal insulin yesterday as BSGs remained on the lower end but did receive 14 units of basal insulin. * Downtrend of BSGs could be do in part to OLIVER contributing to delayed elimination of previous larger doses of lantus. * Fasting BSG increased today to 164/153 (the 301 mg/dL level thought to be erroneous). Restarted low dose basal insulin. Lunchtime BSG trended up again to 257. Will supplement morning dose of Lantus and adjust scale for this ev ening. Will also add overnight checks. Novolog CR may need to be tightened again based on trend. * Patient remains on dexamethasone and is tolerating a diet. 06/21: * Patient received a total of 66 units of insulin yesterday, 25 of which was basal * BSG well controlled yesterday but downtrended yesterday evening into this morning * Fasting this morning was 72 mg/dL. Held basal insulin this morning and lunch BSG remained on the lower end at 80 mg/dL * Patient continues on Dexamethasone and is ordered a diet. * Patient requiring significantly less insulin compared to outpatient dosing, despite steroid use. Will proceed with a reduced insulin scale this evening. Novolog scale loosened 2/ * BSGs well controlled over last 24 hrs * 141 units SQ insulin given over last 24 hrs while tolerating diet and while receiving IV dexamethasone 6mg BID * Suspect there may be a degree of non-compliance with outpt insulin regimen given insulin requirements this admission while on high dose steroids * Fasting BSG 142 this AM with 70 units basal on board. * Will begin to titrate down basal insulin dose as BSGs have ranged 76-149 over last 12 hrs and IV steroid dose has been decreased to once daily in AM. * Prandial insulin dose reduced slightly this AM as a precaution as we have a larger dose of basal on board to start the day / * Poorly controlled type 2 diabetic admitted with resp failure secondary to [place] VID19 viral pna, COPD exacerbation, restrictive lung dz * Hyperglycemic on admission and persistently hyperglycemic in the setting of high dose IV steroid provision * Dexamethasone IV has been ordered as 6mg BID. Typically would utilize NPH to address once daily IV dexamethasone use, but given this patient's high outpt insulin requirements (~140 units/day) and the steroid is being dosed BID, he may be better controlled utilizing aggressive rapid acting insulin regimen along with BID Lantus. * Will base initial insulin dose upon reported outpt insulin requirements of ~140 units/day. Will follow BSG trends and adjust as necessary PLAN FOR INPATIENT GLYCEMIC CONTROL: * Hold outpatient diabetes medications * Basal insulin * Lantus 20 units this AM * Per scale this PM (0 units if less than 120, 5 units if BSG 110-220, 10 units if BSG greater than 220) * Bolus insulin * NovoLog per scale ACHS and overnight checks * Goal Range: Low 120 mg/dL - High 160 mg/dL * Correction Factor: 20 mg/dL/unit * Nutritional / Prandial insulin per carb ratio of 1 unit per 7 grams CHO consumed
--- NOTE | 2022-06-23 18:19 | Hospitalist Progress Note ---
Date of Service June 23, 2022 Assessment & Plan (1) Pneumonia due to COVID-19 virus: Plan: The patient has known chronic lung disease (COPD, restrictive lung disease, tracheomalacia). CXR with "Chronic" appearing interstitial changes per radiology. I cannot rule out that he has element of COVID-19 pneumonia. Remains stable on RA at this time. He was given solumedrol 125mg IV x 1 in ER on 06/18/22 for suspected COVID pneumonia. He was then placed on dexamethasone 6mg IV BID--> then decreased to once daily and now will stop as the patient is having some agitation which may be related to steroids Cont home inhalers. Albuterol prn. Pulmonary toilet with flutter valve and incentive spirometry. Remained stable and improved from previous (2) COPD (chronic obstructive pulmonary disease): Plan: with acute exacerbation now resolved cont all home inhalers pulm toilet IV dexamethasone will now be discontinued albuterol prn (3) Rhabdomyolysis: Plan: 2nd to fall at home. CPK ~1000. hydrated, repeat CPK now down to 300 The elevated CPK may explain the elevated AST which is also now improving (4) OLIVER (acute kidney injury): Plan: in setting of stage 3B CKD with baseline Cr 2 to 2.5 presented with Cr 2.8 and then went up now he is improving down to 2.1-2.2 which is better than his baseline making urine, Amaro in place for retention Restarted home Lasix etiology - rhabdomyolysis less likely as mild rhabdo. COuld be volume contraction or obstructive-500mL PVR- Now with Amaro in place draining urine -follow BMP in AM (5) Chronic renal failure (CRF), stage 3b: Plan: baseline CrCl low 30s baseline Creatinine 2 to 2.5 -Avoid nephrotoxins -renally dose meds when appropriate -follow BMP (6) Diabetes mellitus type 2, uncontrolled: Plan: Hba1c 9.8% Pharmacy has been consulted for glycemic management With some hyperglycemia today but now discontinuing Decadron which will likely improve this Cont on basal-bolus insulin Appreciate pharmacy assistance (7) Permanent atrial fibrillation: Plan: rates abd BP better controlled with increased dose now of metoprolol succinate 100/25mg -continue Eliquis 5mg BID for chronic AC -continue increased dose of Toprol to 100mg qAM and 25mg qPM Okay to downgrade off telemetry (8) Chronic systolic CHF (congestive heart failure): Plan: EF 45-50% on echo in 2019. This should be repeated at some point as an outpatient. He does not appear volume overloaded. If anything he appeared volume contracted on arrival and now euvolemic He uses lasix on sliding scale basis. If weight is 239 or less he takes 40mg/day. 240-245 - he takes 60mg/day of lasix. >245 - takes 80mg/day of lasix. Weight now 227 lbs--> have since resumed lasix 40mg daily (9) BPH with obstruction/lower urinary tract symptoms: Plan: with resulting urinary retention has a h/o bladder CA, last cysto 12/2021 normal cont flomax cont finasteride amaro now in place admission u/a not suggestive of UTI f/u with Urology at [place] with Dr. Brenner after discharge for TOV (10) CAD (coronary artery disease): Plan: cont plavix qod cont metoprolol no ischemic symptoms at this time HS trop scantly elevated with peak of 56 -- likely myocardial demand ischemia in setting of his COVID infection, fall, etc (11) Diabetic nephropathy: Plan: baseline Cr 2 to 2.5 (12) Hypertension: Plan: BPs elevated and now improving with increased dose of metoprolol increased Toprol to 100 mg in the morning 25 mg at night Continue to monitor blood pressures (13) Morbid obesity: Plan: BMI 35 (14) Dementia: Plan: cont aricept (15) Tracheomalacia: Plan: no Rx needed noted on prior CT scans follows with Dr Ervin (16) Restrictive lung disease: Plan: severe based on prior PFTs 2nd obesity? other? no thing to do at this time (17) DVT prophylaxis: Plan: Eliquis 5mg BID Plan Dispo-medically stable for discharge, downgrade off telemetry to medical/surgical status. PT/OT recommends rehab-awaiting placement-referrals made and awaiting insurance authorization for acute rehab at [facility] Discussed care with on phone on 06/20 and again on 06/21. Discussed care with granddaughter at the bedside on 06/23 Admission and Anticipated Discharge Date Admission Date: June 18, 2022 Anticipated date of discharge: 06/24/22 Subjective Patient was a little bit anxious to leave the hospital earlier today and would not keep his heart monitor on. His came in to visit him along with his granddaughter and he was able to calm down. Otherwise, he denies any cough or shortness of breath, no chest pains or abdominal pains. He is eating well. He moved his bowels today. He has no other complaints. He is forgetful at times. Telemetry prior to him removing the monitor showed atrial fibrillation with rates in the 70s to 80s Review of Systems Review of Systems: All systems reviewed & are unremarkable except as noted in HPI & below Physical Exam Physical Exam: gen - NAD, AAOx2 heart - irregularly irregular, normal rate, no mgr lungs - fine bibasilar dry rales otherwise CTA b/l, no wheeze, no increased work of breathing abd - +BS soft NT ND, Amaro in place ext - no edema Results & Data Results & Data ([facility]) Vital Signs (Past 12 Hours) Vital Signs Temp Pulse Resp BP BP Pulse Ox O2 Del Method 06/23/22 16:00 36.8 C 90 20 143/86 H Room Air 06/23/22 12:00 37.0 C 95 H 20 156/98 H 95 Room Air 06/23/22 08:00 37.1 C 75 18 165/105 H 175/80 H 97 Room Air Laboratory Results BMP and magnesium level reviewed PG Care Time/CCT Total # of Minutes Spent Total Time Spent with Patient: Total time spent is greater than 50% in coordination of care (as documented) at patient's floor/unit and/or counseling patient: Coding Level of Care Code 47799 SUB INP/OBS CARE 2/35MIN Diagnoses Pneumonia due to COVID-19 virus U07.1; J12.82 COPD (chronic obstructive pulmonary disease) J44.9 Rhabdomyolysis M62.82 OLIVER (acute kidney injury) N17.9 Chronic renal failure (CRF), stage 3b N18.32 Diabetes mellitus type 2, uncontrolled Permanent atrial fibrillation I48.21 Chronic systolic CHF (congestive heart failure) I50.22 BPH with obstruction/lower urinary tract symptoms N40.1; N13.8 CAD (coronary artery disease) I25.10 Associated angina: without angina Coronary Disease-Associated Artery/Lesion type: [place] artery [place] vs. transplanted heart: [place] heart Diabetic nephropathy E11.21 Hypertension I10 Hypertension type: essential hypertension Morbid obesity E66.01 Dementia F03.90 Tracheomalacia J39.8 Restrictive lung disease J98.4 DVT prophylaxis Z29.9 (1) CAD (coronary artery disease) Associated angina: without angina Coronary Disease-Associated Artery/Lesion type: [place] artery [place] vs. transplanted heart: [place] heart Qualified Code(s): I25.10 - Atherosclerotic heart disease of [place] coronary artery without angina pectoris (2) Hypertension Hypertension type: essential hypertension Qualified Code(s): I10 - Essential (primary) hypertension
[2022-06-23] MEDS: CLOPIDOGREL BISULFATE 75 MG TAB PO SCH (21:19)
[2022-06-23] MEDS: METOPROLOL SUCC 25MG EXT REL TAB PO SCH (21:20)
[2022-06-23] MEDS: DORZOLAMIDE HCL 2% OPH SOLN 10 ML BTL OPB SCH (21:23)
[2022-06-23] MEDS: LATANOPROST 0.005% OP SOLN 2.5 ML BTL OPB SCH (21:23)
[2022-06-24] MEDS: hydrALAZINE TAB 50 MG TAB PO SCH ×4 (07:45→20:24)
[2022-06-24] MEDS: FUROSEMIDE 40 MG TAB PO SCH (07:45)
[2022-06-24] MEDS: METOPROLOL SUCC 50MG EXT REL TAB PO SCH (07:45)
[2022-06-24 08:58] LABS: Basophils # (auto) 0.03 K/uL (0-0.2); Basophils % (auto) 0.3 %; Eosinophils # (auto) 0.25 K/uL (0-0.50); Eosinophils % (auto) 2.2 %; Hematocrit (blood only) 47.4 % (42.0-52.0); Hemoglobin 16.3 g/dl (14.0-18.0); Immature Granulocytes # (auto) 0.11 K/uL (0.01-0.20); Immature Granulocytes % (auto) 0.9 %; Lymphocytes % (auto) 8.6 %; Mean Corpuscular Hemoglobin 28.6 pg (25.0-34.0); Mean Corpuscular Hgb Conc 34.4 g/dL (32.0-36.0); Mean Corpuscular Volume 83.3 fL (80.0-100.0); Mean Platelet Volume 9.7 fL (9.4-12.4); Monocytes % (auto) 9.5 %; Neutrophils # (auto) 9.13 K/uL (1.40-6.50); Neutrophils % (auto) 78.5 %; Platelet Count 219 K/uL (130-400); RDW Coefficient of Variation 15.8 % (11.5-14.5); RDW Standard Deviation 46.9 fL (36.4-46.3); Red Blood Count 5.69 M/uL (4.70-6.10); White Blood Count 11.62 K/ul (4.8-10.8)
[2022-06-24] MEDS ORDERED: hydrALAZINE TAB 50 MG TAB PO ONE (09:00)
[2022-06-24 09:14] LABS: BUN Creatinine Ratio 24.4 (10-20); Calcium 8.9 mg/dl (8.5-10.1); Est GFR (Non-African American) 26.7 ml/min; Potassium 3.7 mmol/L (3.5-5.1)
[2022-06-24] MEDS: INSULIN ASPART PER UNIT SC SCH ×4 (10:16→20:46)
[2022-06-24] MEDS: LANTUS PER UNIT CHARGE SQ SCH (10:18)
[2022-06-24] MEDS: MAGNESIUM CHLORIDE W/CALCIUM 64MG DELAYED REL TAB PO SCH (10:34)
[2022-06-24] MEDS: TAMSULOSIN HCL 0.4 MG CAP PO SCH (10:34)
[2022-06-24] MEDS: DONEPEZIL HCL 10 MG TAB PO SCH (10:34)
[2022-06-24] MEDS: PANTOprazole 40 MG TAB PO SCH (10:34)
[2022-06-24] MEDS: APIXABAN 5 MG TABLET PO SCH ×2 (10:34→20:25)
[2022-06-24] MEDS: FINASTERIDE 5 MG TAB PO SCH (10:34)
[2022-06-24] MEDS: SERTRALINE HCL 50 MG TABLET PO SCH (10:34)
[2022-06-24] MEDS: FLUTICASONE FUROATE 100MCG 14 PUFFS/INHALER INH SCH (10:35)
[2022-06-24] MEDS: UMECLIDINIUM/VILANTEROL 62.5/25MCG 7 PUFFS/INHALER INH SCH (10:35)
[2022-06-24] MEDS: VIBEGRON 75 MG PO SCH (10:36)
[2022-06-24] MEDS: DORZOLAMIDE HCL 2% OPH SOLN 10 ML BTL OPB SCH ×2 (13:38→20:25)
--- NOTE | 2022-06-24 17:40 | Hospitalist Progress Note ---
Date of Service June 24, 2022 Assessment & Plan (1) Pneumonia due to COVID-19 virus: Plan: The patient has known chronic lung disease (COPD, restrictive lung disease, tracheomalacia). CXR with "Chronic" appearing interstitial changes per radiology. I cannot rule out that he has element of COVID-19 pneumonia. Remains stable on RA at this time. He was given solumedrol 125mg IV x 1 in ER on 06/18/22 for suspected COVID pneumonia. He was then placed on dexamethasone 6mg IV BID--> then decreased to once daily and then stopped as the patient is having some agitation which may be related to steroids Cont home inhalers. Albuterol prn. Pulmonary toilet with flutter valve and incentive spirometry. Remained stable and improved from previous (2) COPD (chronic obstructive pulmonary disease): Plan: with acute exacerbation now resolved cont all home inhalers pulm toilet IV dexamethasone course now complete albuterol prn (3) Rhabdomyolysis: Plan: 2nd to fall at home. CPK ~1000. hydrated, repeat CPK now down to 300 The elevated CPK may explain the elevated AST which is also now improving (4) OLIVER (acute kidney injury): Plan: in setting of stage 3B CKD with baseline Cr 2 to 2.5 presented with Cr 2.8 and then went up now he is improving down to 2.1-2.2 which is better than his baseline making urine, Amaro in place for retention Restarted home Lasix etiology - rhabdomyolysis less likely as mild rhabdo. COuld be volume contraction or obstructive-500mL PVR- Now with Amaro in place draining urine (5) Chronic renal failure (CRF), stage 3b: Plan: baseline CrCl low 30s baseline Creatinine 2 to 2.5 -Avoid nephrotoxins -renally dose meds when appropriate -follow BMP periodically (6) Diabetes mellitus type 2, uncontrolled: Plan: Hba1c 9.8% Pharmacy has been consulted for glycemic management With some hyperglycemia ongoing but have since dcd Decadron which will likely improve this Cont on basal-bolus insulin Appreciate pharmacy assistance (7) Permanent atrial fibrillation: Plan: rates abd BP better controlled with increased dose now of metoprolol succinate 100/25mg -continue Eliquis 5mg BID for chronic AC -continue increased dose of Toprol to 100mg qAM and 25mg qPM have since downgraded off telemetry (8) Chronic systolic CHF (congestive heart failure): Plan: EF 45-50% on echo in 2019. This should be repeated at some point as an outpatient. He does not appear volume overloaded. If anything he appeared volume contracted on arrival and now euvolemic He uses lasix on sliding scale basis. If weight is 239 or less he takes 40mg/day. 240-245 - he takes 60mg/day of lasix. >245 - takes 80mg/day of lasix. Weight now 227 lbs--> have since resumed lasix 40mg daily (9) BPH with obstruction/lower urinary tract symptoms: Plan: with resulting urinary retention has a h/o bladder CA, last cysto 12/2021 normal cont flomax cont finasteride amaro now in place admission u/a not suggestive of UTI f/u with Urology at [place] with Dr. Brenner after discharge for TOV (10) CAD (coronary artery disease): Plan: cont plavix qod cont metoprolol no ischemic symptoms at this time HS trop scantly elevated with peak of 56 -- likely myocardial demand ischemia in setting of his COVID infection, fall, etc (11) Diabetic nephropathy: Plan: baseline Cr 2 to 2.5 (12) Hypertension: Plan: BPs elevated and now improving with increased dose of metoprolol Discovered on 06/24 that he was only getting half his usual dose of hydralazine--> increased hydralazine ot home dose of 100mg po qid and now BPs much improved increased Toprol to 100 mg in the morning 25 mg at night Continue to monitor blood pressures (13) Morbid obesity: Plan: BMI 35 (14) Dementia: Plan: cont aricept (15) Tracheomalacia: Plan: no Rx needed noted on prior CT scans follows with Dr Ervin (16) Restrictive lung disease: Plan: severe based on prior PFTs 2nd obesity? other? 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 Discussed care with granddaughter at the bedside on 06/23 Discussed care with at bedside on 2/11 Admission and Anticipated Discharge Date Admission Date: June 18, 2022 Subjective Pt has no complaints. No overnight events. Glucose up today . at bedside, asks about the wound on his right great toe and pinky toe. Was followed at wound clinic Physical Exam Physical Exam: gen - NAD, AAOx2 heart - irregularly irregular, normal rate, no mgr lungs - fine bibasilar dry rales otherwise CTA b/l, no wheeze, no increased work of breathing abd - +BS soft NT ND, Amaro in place ext - no edema; right great toe 0.5cm ulcer dry, no erythema, right pinky lateral portion with scab, right lateral prox leg with 3 cm circular scab Results & Data Results & Data ([facility]) Vital Signs (Past 12 Hours) Vital Signs Temp Pulse Pulse Resp BP BP Pulse Ox 06/24/22 17:18 121/73 06/24/22 15:46 06/24/22 14:56 105/64 06/24/22 14:52 36.7 C 77 16 100/60 94 06/24/22 13:39 88 142/90 H 06/24/22 07:07 36.6 C 79 16 187/88 H 97 O2 Del Method 06/24/22 17:18 06/24/22 15:46 Room Air 06/24/22 14:56 06/24/22 14:52 Room Air 06/24/22 13:39 06/24/22 07:07 Room Air PG Care Time/CCT Total # of Minutes Spent Total Time Spent with Patient: Total time spent is greater than 50% in coordination of care (as documented) at patient's floor/unit and/or counseling patient: Coding Level of Care Code 01574 SUB INP/OBS CARE 06/07MIN Diagnoses Pneumonia due to COVID-19 virus U07.1; J12.82 COPD (chronic obstructive pulmonary disease) J44.9 Rhabdomyolysis M62.82 OLIVER (acute kidney injury) N17.9 Chronic renal failure (CRF), stage 3b N18.32 Diabetes mellitus type 2, uncontrolled Permanent atrial fibrillation I48.21 Chronic systolic CHF (congestive heart failure) I50.22 BPH with obstruction/lower urinary tract symptoms N40.1; N13.8 CAD (coronary artery disease) I25.10 Coronary Disease-Associated Artery/Lesion type: [place] artery [place] vs. transplanted heart: [place] heart Associated angina: without angina Diabetic nephropathy E11.21 Hypertension I10 Hypertension type: essential hypertension Morbid obesity E66.01 Dementia F03.90 Tracheomalacia J39.8 Restrictive lung disease J98.4 DVT prophylaxis Z29.9 (1) CAD (coronary artery disease) Coronary Disease-Associated Artery/Lesion type: [place] artery [place] vs. transplanted heart: [place] heart Associated angina: without angina Qualified Code(s): I25.10 - Atherosclerotic heart disease of [place] coronary artery without angina pectoris (2) Hypertension Hypertension type: essential hypertension Qualified Code(s): I10 - Essential (primary) hypertension
[2022-06-24] MEDS: LATANOPROST 0.005% OP SOLN 2.5 ML BTL OPB SCH (20:26)
[2022-06-24] MEDS: METOPROLOL SUCC 25MG EXT REL TAB PO SCH (20:26)
[2022-06-25] MEDS: INSULIN ASPART PER UNIT SC SCH ×4 (09:10→21:25)
[2022-06-25] MEDS: UMECLIDINIUM/VILANTEROL 62.5/25MCG 7 PUFFS/INHALER INH SCH (09:14)
[2022-06-25] MEDS: VIBEGRON 75 MG PO SCH (09:14)
[2022-06-25] MEDS: FLUTICASONE FUROATE 100MCG 14 PUFFS/INHALER INH SCH (09:15)
[2022-06-25] MEDS: DORZOLAMIDE HCL 2% OPH SOLN 10 ML BTL OPB SCH ×2 (09:16→21:35)
[2022-06-25] MEDS: FINASTERIDE 5 MG TAB PO SCH (09:17)
[2022-06-25] MEDS: PANTOprazole 40 MG TAB PO SCH (09:17)
[2022-06-25] MEDS: METOPROLOL SUCC 50MG EXT REL TAB PO SCH (09:17)
[2022-06-25] MEDS: TAMSULOSIN HCL 0.4 MG CAP PO SCH (09:17)
[2022-06-25] MEDS: SERTRALINE HCL 50 MG TABLET PO SCH (09:17)
[2022-06-25] MEDS: FUROSEMIDE 40 MG TAB PO SCH (09:17)
[2022-06-25] MEDS: DONEPEZIL HCL 10 MG TAB PO SCH (09:17)
[2022-06-25] MEDS: APIXABAN 5 MG TABLET PO SCH ×2 (09:17→21:34)
[2022-06-25] MEDS: MAGNESIUM CHLORIDE W/CALCIUM 64MG DELAYED REL TAB PO SCH (09:17)
[2022-06-25] MEDS: hydrALAZINE TAB 50 MG TAB PO SCH ×4 (09:19→21:36)
[2022-06-25] MEDS: LANTUS PER UNIT CHARGE SQ SCH (09:45)
--- NOTE | 2022-06-25 13:36 | Hospitalist Progress Note ---
Date of Service June 25, 2022 Assessment & Plan (1) Pneumonia due to COVID-19 virus: Plan: The patient has known chronic lung disease (COPD, restrictive lung disease, tracheomalacia). CXR with "Chronic" appearing interstitial changes per radiology. I cannot rule out that he has element of COVID-19 pneumonia. Remains stable on RA at this time. He was given solumedrol 125mg IV x 1 in ER on 06/18/22 for suspected COVID pneumonia. He was then placed on dexamethasone 6mg IV BID--> then decreased to once daily and then stopped as the patient is having some agitation which may be related to steroids-agitation resolved Cont home inhalers. Albuterol prn. Pulmonary toilet with flutter valve and incentive spirometry. Doing well (2) COPD (chronic obstructive pulmonary disease): Plan: with acute exacerbation now resolved cont all home inhalers pulm toilet IV dexamethasone course now complete albuterol prn (3) Rhabdomyolysis: Plan: 2nd to fall at home. CPK ~1000. hydrated, repeat CPK now down to 300 The elevated CPK may explain the elevated AST which is also now improving (4) OLIVER (acute kidney injury): Plan: in setting of stage 3B CKD with baseline Cr 2 to 2.5 presented with Cr 2.8 and then went up now he is improving down to 2.1-2.2 which is better than his baseline making urine, Amaro in place for retention Restarted home Lasix etiology - rhabdomyolysis less likely as mild rhabdo. COuld be volume contraction or obstructive-500mL PVR- Now with Amaro in place draining urine (5) Chronic renal failure (CRF), stage 3b: Plan: baseline CrCl low 30s baseline Creatinine 2 to 2.5 -Avoid nephrotoxins -renally dose meds when appropriate -follow BMP periodically (6) Diabetes mellitus type 2, uncontrolled: Plan: Hba1c 9.8% Pharmacy has been consulted for glycemic management With some hyperglycemia ongoing but have since dcd Decadron which will likely improve this Cont on basal-bolus insulin Appreciate pharmacy assistance (7) Permanent atrial fibrillation: Plan: rates abd BP better controlled with increased dose now of metoprolol succinate 100/25mg -continue Eliquis 5mg BID for chronic AC -continue increased dose of Toprol to 100mg qAM and 25mg qPM have since downgraded off telemetry (8) Chronic systolic CHF (congestive heart failure): Plan: EF 45-50% on echo in 2019. This should be repeated at some point as an outpatient. He does not appear volume overloaded. If anything he appeared volume contracted on arrival and now euvolemic He uses lasix on sliding scale basis. If weight is 239 or less he takes 40mg/day. 240-245 - he takes 60mg/day of lasix. >245 - takes 80mg/day of lasix. Weight now 227 lbs--> have since resumed lasix 40mg daily (9) BPH with obstruction/lower urinary tract symptoms: Plan: with resulting urinary retention has a h/o bladder CA, last cysto 12/2021 normal cont flomax cont finasteride amaro now in place admission u/a not suggestive of UTI f/u with Urology at [place] with Dr. Brenner after discharge for TOV (10) CAD (coronary artery disease): Plan: cont plavix qod cont metoprolol no ischemic symptoms at this time HS trop scantly elevated with peak of 56 -- likely myocardial demand ischemia in setting of his COVID infection, fall, etc (11) Diabetic nephropathy: Plan: baseline Cr 2 to 2.5 (12) Hypertension: Plan: BPs elevated and now improving with increased dose of metoprolol Discovered on 06/24 that he was only getting half his usual dose of hydralazine--> increased hydralazine ot home dose of 100mg po qid and now BPs much improved increased Toprol to 100 mg in the morning 25 mg at night Continue to monitor blood pressures (13) Morbid obesity: Plan: BMI 35 (14) Dementia: Plan: cont aricept (15) Tracheomalacia: Plan: no Rx needed noted on prior CT scans follows with Dr Ervin (16) Restrictive lung disease: Plan: severe based on prior PFTs 2nd obesity? other? 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 Discussed care with granddaughter at the bedside on 06/23 Discussed care with at bedside on 06/24 and again on 06/25 Admission and Anticipated Discharge Date Admission Date: June 18, 2022 Subjective No complaints Physical Exam Physical Exam: gen - NAD, AAOx2 heart - irregularly irregular, normal rate, no mgr lungs - fine bibasilar dry rales otherwise CTA b/l, no wheeze, no increased work of breathing abd - +BS soft NT ND, Amaro in place ext - no edema; right great toe 0.5cm ulcer dry, no erythema, right pinky lateral portion with scab, right lateral prox leg with 3 cm circular scab Results & Data Results & Data ([facility]) Vital Signs (Past 12 Hours) Vital Signs Temp Pulse Resp BP Pulse Ox O2 Del Method 06/25/22 11:03 Room Air 06/25/22 08:31 36.3 C L 85 18 157/91 H 94 Room Air PG Care Time/CCT Total # of Minutes Spent Total Time Spent with Patient: Total time spent is greater than 50% in coordination of care (as documented) at patient's floor/unit and/or counseling patient: Coding Level of Care Code 17587 SUB INP/OBS CARE 06/07MIN Diagnoses Pneumonia due to COVID-19 virus U07.1; J12.82 COPD (chronic obstructive pulmonary disease) J44.9 Rhabdomyolysis M62.82 OLIVER (acute kidney injury) N17.9 Chronic renal failure (CRF), stage 3b N18.32 Diabetes mellitus type 2, uncontrolled Permanent atrial fibrillation I48.21 Chronic systolic CHF (congestive heart failure) I50.22 BPH with obstruction/lower urinary tract symptoms N40.1; N13.8 CAD (coronary artery disease) I25.10 Coronary Disease-Associated Artery/Lesion type: [place] artery [place] vs. transplanted heart: [place] heart Associated angina: without angina Diabetic nephropathy E11.21 Hypertension I10 Hypertension type: essential hypertension Morbid obesity E66.01 Dementia F03.90 Tracheomalacia J39.8 Restrictive lung disease J98.4 DVT prophylaxis Z29.9 (1) CAD (coronary artery disease) Coronary Disease-Associated Artery/Lesion type: [place] artery [place] vs. transplanted heart: [place] heart Associated angina: without angina Qualified Code(s): I25.10 - Atherosclerotic heart disease of [place] coronary artery without angina pectoris (2) Hypertension Hypertension type: essential hypertension Qualified Code(s): I10 - Essential (primary) hypertension
[2022-06-25] MEDS: CLOPIDOGREL BISULFATE 75 MG TAB PO SCH (21:35)
[2022-06-25] MEDS: METOPROLOL SUCC 25MG EXT REL TAB PO SCH (21:37)
[2022-06-25] MEDS: LATANOPROST 0.005% OP SOLN 2.5 ML BTL OPB SCH (21:37)
[2022-06-26 06:38] LABS: Basophils # (auto) 0.04 K/uL (0-0.2); Basophils % (auto) 0.4 %; Eosinophils # (auto) 0.24 K/uL (0-0.50); Eosinophils % (auto) 2.5 %; Hematocrit (blood only) 47.7 % (42.0-52.0); Hemoglobin 16.1 g/dl (14.0-18.0); Immature Granulocytes # (auto) 0.08 K/uL (0.01-0.20); Immature Granulocytes % (auto) 0.8 %; Lymphocytes # (auto) 0.92 K/uL (1.2-3.4); Lymphocytes % (auto) 9.7 %; Mean Corpuscular Hemoglobin 28.5 pg (25.0-34.0); Mean Corpuscular Hgb Conc 33.8 g/dL (32.0-36.0); Mean Corpuscular Volume 84.4 fL (80.0-100.0); Mean Platelet Volume 9.4 fL (9.4-12.4); Monocytes # (auto) 0.74 K/uL (0.11-0.59); Monocytes % (auto) 7.8 %; Neutrophils # (auto) 7.45 K/uL (1.40-6.50); Neutrophils % (auto) 78.8 %; Platelet Count 229 K/uL (130-400); RDW Coefficient of Variation 15.9 % (11.5-14.5); RDW Standard Deviation 47.9 fL (36.4-46.3); Red Blood Count 5.65 M/uL (4.70-6.10); White Blood Count 9.47 K/ul (4.8-10.8)
[2022-06-26 06:55] LABS: BUN Creatinine Ratio 23.4 (10-20); Calcium 8.9 mg/dl (8.5-10.1); Creatinine Clr Calc Pharmacy 27.2 ml/min; Est GFR (African American) 26.5 ml/min; Est GFR (Non-African American) 22.9 ml/min; Potassium 3.6 mmol/L (3.5-5.1)
[2022-06-26] MEDS: INSULIN ASPART PER UNIT SC SCH ×4 (08:54→21:19)
[2022-06-26] MEDS ORDERED: LANTUS PER UNIT CHARGE SQ SCH (09:00)
[2022-06-26] MEDS: FLUTICASONE FUROATE 100MCG 14 PUFFS/INHALER INH SCH (09:07)
[2022-06-26] MEDS: DORZOLAMIDE HCL 2% OPH SOLN 10 ML BTL OPB SCH ×2 (09:07→21:13)
[2022-06-26] MEDS: hydrALAZINE TAB 50 MG TAB PO SCH ×4 (09:09→21:14)
[2022-06-26] MEDS: DONEPEZIL HCL 10 MG TAB PO SCH (09:10)
[2022-06-26] MEDS: TAMSULOSIN HCL 0.4 MG CAP PO SCH (09:11)
[2022-06-26] MEDS: METOPROLOL SUCC 50MG EXT REL TAB PO SCH (09:11)
[2022-06-26] MEDS: MAGNESIUM CHLORIDE W/CALCIUM 64MG DELAYED REL TAB PO SCH (09:11)
[2022-06-26] MEDS: FINASTERIDE 5 MG TAB PO SCH (09:11)
[2022-06-26] MEDS: PANTOprazole 40 MG TAB PO SCH (09:11)
[2022-06-26] MEDS: APIXABAN 5 MG TABLET PO SCH ×2 (09:11→21:12)
[2022-06-26] MEDS: VIBEGRON 75 MG PO SCH (09:11)
[2022-06-26] MEDS: SERTRALINE HCL 50 MG TABLET PO SCH (09:11)
[2022-06-26] MEDS: UMECLIDINIUM/VILANTEROL 62.5/25MCG 7 PUFFS/INHALER INH SCH (10:56)
--- NOTE | 2022-06-26 13:53 | Pharmacy Report ---
Pharmacy Glycemic Short Note 2 - Date of Service June 26, 2022 - Glycemic Short BSG Results (Last 24 hours): 06/25/22 06/25/22 06/26/22 17:20 21:25 06:22 Glucose 234 H POC Glucose 278 H 131 H 06/26/22 06/26/22 08:11 12:20 Glucose POC Glucose 228 H 191 H OUTPATIENT ANTIDIABETIC REGIMEN: * Tresiba 22 units Q PM * Novolog 70/30 60 units BID * Januvia 25mg daily * A1c = 9.8% ASSESSMENT: 06/26/22 * Patient's BSGs yesterday were [phone] mg/dL. and patient received 48 units of insulin yesterday (20 units of basal and 28 units of bolus). * Patient's fasting today is 228 mg/dL. Increase basal by 20% to 25 units daily. * Continue Novolog since patient's BSGs trended downwards yesterday. 06/23: * Patient received 25 units of basal insulin yesterday, Fasting 156 mg/dL on lab. Will give 20 units of lantus this morning and scale for PM * Lunch BSG 97 mg/dL. Will loosen carb ratio. * Patient continues on dexamethasone 6 mg daily. 06/22: * Patient did not receive any basal insulin yesterday as BSGs remained on the lower end but did receive 14 units of basal insulin. * Downtrend of BSGs could be do in part to OLIVER contributing to delayed elimination of previous larger doses of lantus. * Fasting BSG increased today to 164/153 (the 301 mg/dL level thought to be erroneous). Restarted low dose basal insulin. Lunchtime BSG trended up again to 257. Will supplement morning dose of Lantus and adjust scale for this evening. Will also add overnight checks. Novolog CR may need to be tightened again based on trend. * Patient remains on dexamethasone and is tolerating a diet. 06/21: * Patient received a total of 66 units of insulin yesterday, 25 of which was basal * BSG well controlled yesterday but downtrended yesterday evening into this morning * Fasting this morning was 72 mg/dL. Held basal insulin this morning and lunch BSG remained on the lower end at 80 mg/dL * Patient continues on Dexamethasone and is ordered a diet. * Patient requiring significantly less insulin compared to outpatient dosing, despite steroid use. Will proceed with a reduced insulin scale this evening. Novolog scale loosened 06/20 * BSGs well controlled over last 24 hrs * 141 units SQ insulin given over last 24 hrs while tolerating diet and while receiving IV dexamethasone 6mg BID * Suspect there may be a degree of non-compliance with outpt insulin regimen given insulin requirements this admission while on high dose steroids * Fasting BSG 142 this AM with 70 units basal on board. * Will begin to titrate down basal insulin dose as BSGs have ranged 76-149 over last 12 hrs and IV steroid dose has been decreased to once daily in AM. * Prandial insulin dose reduced slightly this AM as a precaution as we have a larger dose of basal on board to start the day 06/19 * Poorly controlled type 2 diabetic admitted with resp failure secondary to COVID19 viral pna, COPD exacerbation, restrictive lung dz * Hyperglycemic on admission and persistently hyperglycemic in the setting of high dose IV steroid provision * Dexamethasone IV has been ordered as 6mg BID. Typically would utilize NPH to address once daily IV dexamethasone use, but given this patient's high outpt insulin requirements (~140 units/day) and the steroid is being dosed BID, he may be better controlled utilizing aggressive rapid acting insulin regimen along with BID Lantus. * Will base initial insulin dose upon reported outpt insulin requirements of ~140 units/day. Will follow BSG trends and adjust as necessary PLAN FOR INPATIENT GLYCEMIC CONTROL: * Hold outpatient diabetes medications * Basal insulin * Lantus 25 units this AM * Bolus insulin * NovoLog per scale ACHS and overnight checks * Goal Range: Low 120 mg/dL - High 160 mg/dL * Correction Factor: 20 mg/dL/unit * Nutritional / Prandial insulin per carb ratio of 1 unit per 6 grams CHO consumed
--- NOTE | 2022-06-26 17:54 | Hospitalist Progress Note ---
Date of Service June 26, 2022 Assessment & Plan (1) Pneumonia due to COVID-19 virus: Plan: The patient has known chronic lung disease (COPD, restrictive lung disease, tracheomalacia). CXR with "Chronic" appearing interstitial changes per radiology. I cannot rule out that he has element of COVID-19 pneumonia. Remains stable on RA at this time. He was given solumedrol 125mg IV x 1 in ER on 06/18/22 for suspected COVID pneumonia. He was then placed on dexamethasone 6mg IV BID--> then decreased to once daily and then stopped as the patient is having some agitation which may be related to steroids-agitation resolved Cont home inhalers. Albuterol prn. Pulmonary toilet with flutter valve and incentive spirometry. Doing well (2) COPD (chronic obstructive pulmonary disease): Plan: with acute exacerbation now resolved cont all home inhalers pulm toilet IV dexamethasone course now complete albuterol prn (3) Rhabdomyolysis: Plan: 2nd to fall at home. CPK ~1000. hydrated, repeat CPK now down to 300 The elevated CPK may explain the elevated AST which is also now improving (4) OLIVER (acute kidney injury): Plan: in setting of stage 3B CKD with baseline Cr 2 to 2.5 presented with Cr 2.8 and then went up now he is improving down to 2.1-2.2 which is better than his baseline Creatinine back up slightly to 2.56 after restarting home Lasix-change Lasix to every other day making urine, Amaro in place for retention but will give trial of void on 06/27 etiology - rhabdomyolysis less likely as mild rhabdo. COuld be volume contraction or obstructive-500mL PVR- Now with Amaro in place draining urine (5) Chronic renal failure (CRF), stage 3b: Plan: baseline CrCl low 30s baseline Creatinine 2 to 2.5 -Avoid nephrotoxins -renally dose meds when appropriate -follow BMP in the morning (6) Diabetes mellitus type 2, uncontrolled: Plan: Hba1c 9.8% Pharmacy has been consulted for glycemic management With some hyperglycemia ongoing but have since dcd Decadron and now glucose improving Cont on basal-bolus insulin Appreciate pharmacy assistance (7) Permanent atrial fibrillation: Plan: rates abd BP better controlled with increased dose now of metoprolol succinate 100/25mg -continue Eliquis 5mg BID for chronic AC -continue increased dose of Toprol to 100mg qAM and 25mg qPM have since downgraded off telemetry (8) Chronic systolic CHF (congestive heart failure): Plan: EF 45-50% on echo in 2019. This should be repeated at some point as an outpatient. He does not appear volume overloaded. If anything he appeared volume contracted on arrival and now euvolemic He uses lasix on sliding scale basis. If weight is 239 or less he takes 40mg/day. 240-245 - he takes 60mg/day of lasix. >245 - takes 80mg/day of lasix. Weight now 227 lbs--> have since resumed lasix 40mg daily but changing to every other day due to rising creatinine again (9) BPH with obstruction/lower urinary tract symptoms: Plan: with resulting urinary retention has a h/o bladder CA, last cysto 12/2021 normal cont flomax cont finasteride amaro now in place for over a week now-we will give trial of void on the morning of 06/27 admission u/a not suggestive of UTI f/u with Urology at [place] with Dr. Brenner after discharge (10) CAD (coronary artery disease): Plan: cont plavix every other day cont metoprolol no ischemic symptoms at this time HS trop scantly elevated with peak of 56 -- likely myocardial demand ischemia in setting of his COVID infection, fall, etc (11) Diabetic nephropathy: Plan: baseline Cr 2 to 2.5 (12) Hypertension: Plan: BPs elevated and now improving with increased dose of metoprolol Discovered on 06/24 that he was only getting half his usual dose of hydralazine--> increased hydralazine ot home dose of 100mg po qid and now BPs much improved increased Toprol to 100 mg in the morning 25 mg at night Continue to monitor blood pressures (13) Morbid obesity: Plan: BMI 35 (14) Dementia: Plan: cont aricept (15) Tracheomalacia: Plan: no Rx needed noted on prior CT scans follows with Dr Ervin (16) Restrictive lung disease: Plan: severe based on prior PFTs 2nd obesity? other? no thing to do at this time (17) DVT prophylaxis: Plan: Eliquis 5mg BID ring maker consult for right toe wounds appreciated Plan Dispo-medically stable for discharge, continue medical/surgical status while awaiting rehab insurance auth for [facility] Discussed care with on phone on 06/20 and again on 06/21. Discussed care with granddaughter at the bedside on 06/23 Discussed care with at bedside on 06/24 and again on 06/25, 06/26 Admission and Anticipated Discharge Date Admission Date: June 18, 2022 Subjective Patient has no complaints. He is tired of being in the hospital and wants to go home. Awaiting rehab insurance authorization Physical Exam Physical Exam: gen - NAD, AAOx2 heart - irregularly irregular, normal rate, no mgr lungs - fine bibasilar dry rales otherwise CTA b/l, no wheeze, no increased work of breathing abd - +BS soft NT ND, Amaro in place ext - no edema; right great toe 0.5cm ulcer dry, no erythema, right pinky lateral portion with scab, right lateral prox leg with 3 cm circular scab Results & Data Results & [facility] ([facility]) Vital Signs (Past 12 Hours) Vital Signs Temp Pulse Pulse Resp BP BP Pulse Ox 06/26/22 15:46 36.7 C 85 18 136/71 93 06/26/22 13:03 73 132/67 06/26/22 11:00 06/26/22 08:13 157/102 H 06/26/22 08:12 36.7 C 84 20 174/77 H 95 O2 Del Method 06/26/22 15:46 Room Air 06/26/22 13:03 06/26/22 11:00 Room Air 06/26/22 08:13 06/26/22 08:12 Room Air Laboratory Results CBC and BMP reviewed PG Care Time/CCT Total # of Minutes Spent Total Time Spent with Patient: Total time spent is greater than 50% in coordination of care (as documented) at patient's floor/unit and/or counseling patient: Coding Level of Care Code 75758 SUB INP/OBS CARE 06/07MIN Diagnoses Pneumonia due to COVID-19 virus U07.1; J12.82 COPD (chronic obstructive pulmonary disease) J44.9 Rhabdomyolysis M62.82 OLIVER (acute kidney injury) N17.9 Chronic renal failure (CRF), stage 3b N18.32 Diabetes mellitus type 2, uncontrolled Permanent atrial fibrillation I48.21 Chronic systolic CHF (congestive heart failure) I50.22 BPH with obstruction/lower urinary tract symptoms N40.1; N13.8 CAD (coronary artery disease) I25.10 Coronary Disease-Associated Artery/Lesion type: [place] artery [place] vs. transplanted heart: [place] heart Associated angina: without angina Diabetic nephropathy E11.21 Hypertension I10 Hypertension type: essential hypertension Morbid obesity E66.01 Dementia F03.90 Tracheomalacia J39.8 Restrictive lung disease J98.4 DVT prophylaxis Z29.9 (1) CAD (coronary artery disease) Coronary Disease-Associated Artery/Lesion type: [place] artery [place] vs. transplanted heart: [place] heart Associated angina: without angina Qualified Code(s): I25.10 - Atherosclerotic heart disease of [place] coronary artery without angina pectoris (2) Hypertension Hypertension type: essential hypertension Qualified Code(s): I10 - Essential (primary) hypertension
[2022-06-26] MEDS: LATANOPROST 0.005% OP SOLN 2.5 ML BTL OPB SCH (21:14)
[2022-06-26] MEDS: METOPROLOL SUCC 25MG EXT REL TAB PO SCH (21:15)
[2022-06-27 07:26] LABS: BUN Creatinine Ratio 23.7 (10-20); Creatinine Clr Calc Pharmacy 29.6 ml/min; Est GFR (African American) 29.2 ml/min; Est GFR (Non-African American) 25.2 ml/min; Potassium 3.6 mmol/L (3.5-5.1)
[2022-06-27] MEDS: VIBEGRON 75 MG PO SCH (07:50)
[2022-06-27] MEDS: APIXABAN 5 MG TABLET PO SCH ×2 (07:51→20:40)
[2022-06-27] MEDS: UMECLIDINIUM/VILANTEROL 62.5/25MCG 7 PUFFS/INHALER INH SCH (07:51)
[2022-06-27] MEDS: DONEPEZIL HCL 10 MG TAB PO SCH (07:51)
[2022-06-27] MEDS: FINASTERIDE 5 MG TAB PO SCH (07:51)
[2022-06-27] MEDS: hydrALAZINE TAB 50 MG TAB PO SCH ×4 (07:52→20:42)
[2022-06-27] MEDS: MAGNESIUM CHLORIDE W/CALCIUM 64MG DELAYED REL TAB PO SCH (07:52)
[2022-06-27] MEDS: SERTRALINE HCL 50 MG TABLET PO SCH (07:52)
[2022-06-27] MEDS: METOPROLOL SUCC 25MG EXT REL TAB PO SCH (07:52)
[2022-06-27] MEDS: PANTOprazole 40 MG TAB PO SCH (07:52)
[2022-06-27] MEDS: TAMSULOSIN HCL 0.4 MG CAP PO SCH (07:52)
[2022-06-27] MEDS: METOPROLOL SUCC 50MG EXT REL TAB PO SCH (07:53)
[2022-06-27] MEDS: FLUTICASONE FUROATE 100MCG 14 PUFFS/INHALER INH SCH (07:54)
[2022-06-27] MEDS: DORZOLAMIDE HCL 2% OPH SOLN 10 ML BTL OPB SCH ×2 (07:57→20:41)
[2022-06-27] MEDS ORDERED: FUROSEMIDE 40 MG TAB PO SCH (09:00)
[2022-06-27] MEDS: INSULIN ASPART PER UNIT SC SCH ×4 (09:12→21:09)
[2022-06-27] MEDS: LANTUS PER UNIT CHARGE SQ SCH (09:13)
--- NOTE | 2022-06-27 19:49 | Hospitalist Progress Note ---
Date of Service June 27, 2022 Assessment & Plan (1) Pneumonia due to COVID-19 virus: Plan: clinically resolved no longer on steroids stable in room air no symptoms (2) COPD (chronic obstructive pulmonary disease): Plan: cont all home inhalers no flare at this time #1 resolved (3) Rhabdomyolysis: Plan: 2nd to fall at home. CPK ~1000 at peak. resolved (4) OLIVER (acute kidney injury): Plan: in setting of stage 3B CKD with baseline Cr 2 to 2.5 presented with Cr 2.8; now 2.3 thus - OLIVER resolved etiology - rhabdomyolysis, volume contraction, COVID, some obstruction - likely all were to blame had amaro - amaro now d/c and voiding fine (5) Chronic renal failure (CRF), stage 3b: Plan: baseline CrCl low 30s baseline Creatinine 2 to 2.5 Cr today 2.3 (6) Diabetes mellitus type 2, uncontrolled: Plan: Hba1c 9.8% Pharmacy has been consulted for glycemic management and continues to adjust his basal-bolus insulin Appreciate pharmacy assistance (7) Permanent atrial fibrillation: Plan: cont metoprolol succinate 100mg daily cont Eliquis 5mg BID for chronic AC rates acceptable (8) Chronic systolic CHF (congestive heart failure): Plan: EF 45-50% on echo in 2019. He uses lasix on sliding scale basis. If weight is 239 or less he takes 40mg/day. 240-245 - he takes 60mg/day of lasix. >245 - takes 80mg/day of lasix. remains <230 pounds and appears compensated cont BB lasix prn (9) BPH with obstruction/lower urinary tract symptoms: Plan: had amaro early in stay due to retention amaro now d/c and voiding ok cont flomax cont finasteride (10) CAD (coronary artery disease): Plan: cont plavix qod cont metoprolol no ischemic symptoms at this time HS trop scantly elevated with peak of 56 at presentation -- likely myocardial demand ischemia in setting of his COVID infection, fall, etc (11) Diabetic nephropathy: Plan: baseline Cr 2 to 2.5 Cr today 2.3 (12) Hypertension: Plan: controlled with current meds (13) Morbid obesity: Plan: BMI 34-35 (14) Dementia: Plan: cont aricept no behavioral disturbance at this time (15) Tracheomalacia: Plan: no Rx needed noted on prior CT scans follows with Dr Aziza swartz in [place] (16) Restrictive lung disease: Plan: severe based on prior PFTs 2nd obesity? other? stable sats in room air (17) DVT prophylaxis: Plan: Eliquis 5mg BID Plan awaiting auth for rehab Admission and Anticipated Discharge Date Admission Date: June 18, 2022 Subjective pt sitting in chair watching TV offers no complaints robust appetite denies any dyspnea, cough, or WALL denies any pain in any location Review of Systems Review of Systems: gen - energy is good, normal appetite cv - no chest pain pulm - no wheezing GI - no abd pain, nausea or emesis psych - sleeping ok Physical Exam Physical Exam: gen - NAD, looks good, sitting in chair mouth - MMM neck - no JVD heart - irregularly irregular, s1 s2, no murmur lungs - scant fine bibasilar dry rales otherwise CTA b/l abd - distended (but just ate his meal);NT, no HSM, BS+ ext - no edema, pulses 2+ b/l Results & Data Results & Data ([facility]) Vital Signs (Past 12 Hours) Vital Signs Temp Pulse Resp BP BP Pulse Ox O2 Del Method 06/27/22 15:53 36.6 C 68 17 103/67 95 Room Air 06/27/22 08:42 149/74 H Laboratory Results Laboratory Results - last 24 hr 06/26/22 06/27/22 06/27/22 21:09 06:33 08:35 Sodium 138 Potassium 3.6 Chloride 103 Carbon Dioxide 28 Anion Gap 7 BUN 56 H Creatinine 2.36 H Est Cr Clr Drug Dosing 29.6 Est GFR ( Amer) 29.2 Est GFR (Non-Af Amer) 25.2 BUN/Creatinine Ratio 23.7 H Glucose 252 H POC Glucose 173 H 245 H Calcium 9.0 06/27/22 06/27/22 12:33 17:39 Sodium Potassium Chloride Carbon Dioxide Anion Gap BUN Creatinine Est Cr Clr Drug Dosing Est GFR ( Amer) Est GFR (Non-Af Amer) BUN/Creatinine Ratio Glucose POC Glucose 223 H 179 H Calcium PG Care Time/CCT Total # of Minutes Spent Total Time Spent with Patient: Total time spent is greater than 50% in coordination of care (as documented) at patient's floor/unit and/or counseling patient: Coding Level of Care Code 66052 SUB INP/OBS CARE MIN Diagnoses Pneumonia due to COVID-19 virus U07.1; J12.82 COPD (chronic obstructive pulmonary disease) J44.9 Rhabdomyolysis M62.82 OLIVER (acute kidney injury) N17.9 Chronic renal failure (CRF), stage 3b N18.32 Diabetes mellitus type 2, uncontrolled Permanent atrial fibrillation I48.21 Chronic systolic CHF (congestive heart failure) I50.22 BPH with obstruction/lower urinary tract symptoms N40.1; N13.8 CAD (coronary artery disease) I25.10 Associated angina: without angina Coronary Disease-Associated Artery/Lesion type: [place] artery [place] vs. transplanted heart: [place] heart Diabetic nephropathy E11.21 Hypertension I10 Hypertension type: essential hypertension Morbid obesity E66.01 Dementia F03.90 Tracheomalacia J39.8 Restrictive lung disease J98.4 DVT prophylaxis Z29.9 (10) CAD (coronary artery disease) Associated angina: without angina Coronary Disease-Associated Artery/Lesion type: [place] artery [place] vs. transplanted heart: [place] heart Qualified Code(s): I25.10 - Atherosclerotic heart disease of [place] coronary artery without angina pectoris (12) Hypertension Hypertension type: essential hypertension Qualified Code(s): I10 - Essential (primary) hypertension
[2022-06-27] MEDS: CLOPIDOGREL BISULFATE 75 MG TAB PO SCH (20:41)
[2022-06-27] MEDS: LATANOPROST 0.005% OP SOLN 2.5 ML BTL OPB SCH (20:42)
[2022-06-28] MEDS: METOPROLOL SUCC 50MG EXT REL TAB PO SCH (08:42)
[2022-06-28] MEDS: DONEPEZIL HCL 10 MG TAB PO SCH (08:42)
[2022-06-28] MEDS: hydrALAZINE TAB 50 MG TAB PO SCH ×2 (08:42→12:46)
[2022-06-28] MEDS: MAGNESIUM CHLORIDE W/CALCIUM 64MG DELAYED REL TAB PO SCH (08:42)
[2022-06-28] MEDS: SERTRALINE HCL 50 MG TABLET PO SCH (08:42)
[2022-06-28] MEDS: VIBEGRON 75 MG PO SCH (08:43)
[2022-06-28] MEDS: FLUTICASONE FUROATE 100MCG 14 PUFFS/INHALER INH SCH (08:43)
[2022-06-28] MEDS: PANTOprazole 40 MG TAB PO SCH (08:43)
[2022-06-28] MEDS: APIXABAN 5 MG TABLET PO SCH (08:43)
[2022-06-28] MEDS: FINASTERIDE 5 MG TAB PO SCH (08:43)
[2022-06-28] MEDS: UMECLIDINIUM/VILANTEROL 62.5/25MCG 7 PUFFS/INHALER INH SCH (08:43)
[2022-06-28] MEDS: DORZOLAMIDE HCL 2% OPH SOLN 10 ML BTL OPB SCH (08:43)
[2022-06-28] MEDS: TAMSULOSIN HCL 0.4 MG CAP PO SCH (08:43)
[2022-06-28] MEDS: LANTUS PER UNIT CHARGE SQ SCH (08:50)
[2022-06-28] MEDS: INSULIN ASPART PER UNIT SC SCH ×2 (08:50→12:44)
--- NOTE | 2022-06-28 09:11 | Pharmacy Report ---
Pharmacy Glycemic Short Note 2 - Date of Service June 28, 2022 - Glycemic Short BSG Results (Last 24 hours): 06/27/22 06/27/22 06/27/22 12:33 17:39 20:53 POC Glucose 223 H 179 H 149 H 06/28/22 08:30 POC Glucose 201 H OUTPATIENT ANTIDIABETIC REGIMEN: * Tresiba 22 units Q PM * Novolog 70/30 60 units BID * Januvia 25mg daily * A1c = 9.8% ASSESSMENT: 06/28/22 * Patient received 73 units of insulin yesterday (35 units of basal and 38 units of bolus). * Basal insulin was increased yesterday and NovoLog parameters were tightened, which improved fasting BSG today and BSGs throughout the day yesterday. * Fasting is still above goal, but will wait one more day before increasing basal insulin again, continue NovoLog at this time. * Patient awaiting rehab placement. 06/26/22 * Patient's BSGs yesterday were [phone] mg/dL. and patient received 48 units of insulin yesterday (20 units of basal and 28 units of bolus). * Patient's fasting today is 228 mg/dL. Increase basal by 20% to 25 units daily. * Continue Novolog since patient's BSGs trended downwards yesterday. 06/23: * Patient received 25 units of basal insulin yesterday, Fasting 156 mg/dL on lab. Will give 20 units of lantus this morning and scale for PM * Lunch BSG 97 mg/dL. Will loosen carb ratio. * Patient continues on dexamethasone 6 mg daily. 06/22: * Patient did not receive any basal insulin yesterday as BSGs remained on the lower end but did receive 14 units of basal insulin. * Downtrend of BSGs could be do in part to OLIVER contributing to delayed elimination of previous larger doses of lantus. * Fasting BSG increased today to 164/153 (the 301 mg/dL level thought to be erroneous). Restarted low dose basal insulin. Lunchtime BSG trended up again to 257. Will supplement morning dose of Lantus and adjust scale for this evening. Will also add overnight checks. Novolog CR may need to be tightened again based on trend. * Patient remains on dexamethasone and is tolerating a diet. 2/8: * Patient received a total of 66 units of insulin yesterday, 25 of which was basal * BSG well controlled yesterday but downtrended yesterday evening into this morning * Fasting this morning was 72 mg/dL. Held basal insulin this morning and lunch BSG remained on the lower end at 80 mg/dL * Patient continues on Dexamethasone and is ordered a diet. * Patient requiring significantly less insulin compared to outpatient dosing, despite steroid use. Will proceed with a reduced insulin scale this evening. Novolog scale loosened / * BSGs well controlled over last 24 hrs * 141 units SQ insulin given over last 24 hrs while tolerating diet and while receiving IV dexamethasone 6mg BID * Suspect there may be a degree of non-compliance with outpt insulin regimen given insulin requirements this admission while on high dose steroids * Fasting BSG 142 this AM with 70 units basal on board. * Will begin to titrate down basal insulin dose as BSGs have ranged 76-149 over last 12 hrs and IV steroid dose has been decreased to once daily in AM. * Prandial insulin dose reduced slightly this AM as a precaution as we have a larger dose of basal on board to start the day 06/19 * Poorly controlled type 2 diabetic admitted with resp failure secondary to COVID19 viral pna, COPD exacerbation, restrictive lung dz * Hyperglycemic on admission and persistently hyperglycemic in the setting of high dose IV steroid provision * Dexamethasone IV has been ordered as 6mg BID. Typically would utilize NPH to address once daily IV dexamethasone use, but given this patient's high outpt insulin requirements (~140 units/day) and the steroid is being dosed BID, he may be better controlled utilizing aggressive rapid acting insulin regimen along with BID Lantus. * Will base initial insulin dose upon reported outpt insulin requirements of ~140 units/day. Will follow BSG trends and adjust as necessary PLAN FOR INPATIENT GLYCEMIC CONTROL: * Hold outpatient diabetes medications * Basal insulin * Lantus 35 units SQ AM * Bolus insulin * NovoLog per scale ACHS and overnight checks * Goal Range: Low 110 mg/dL - High 140 mg/dL * Correction Factor: 18 mg/dL/unit * Nutritional / Prandial insulin per carb ratio of 1 unit per 5 grams CHO consumed
--- NOTE | 2022-06-28 16:05 | Discharge Summary ---
Date of Service June 28, 2022 Admission HPI Per Admitting Provider Ramses Petty is a 77-year-old male with past medical history of restrictive lung disease, tracheomalacia, permanent atrial fibrillation on apixaban, CAD with history of LAD stent and every other day Plavix, CKD last creatinine baseline around 2.0, DM2 on basal/bolus with Jardiance, depression COVID-positive, 1 day of symptoms. Vaccinated and boosted. Weak, more tired last night. Did not take medicines last night or this morning. Sore throat x1 day, no fevers chills No shortness of breath Increased wheezing in the last few days Used trelegy 4 out of the last 5 days, did not use this morning No night swetas nonproductive cough x1 day No problems with bleeding, denies melena/bright red blood per rectum, hematemesis Has had worsening kidney function at his follow-up this past week Medical History: Reviewed Medications: Reviewed Surgical History: Reviewed Allergies: Reviewed Social History: No recent tobacco / etoh use. Code Status: DNR/DNI Discharge Exam gen - NAD, looks good, sitting in chair mouth - MMM neck - no JVD heart - irregularly irregular, s1 s2, no murmur lungs - scant fine bibasilar dry rales otherwise CTA b/l abd - distended (but just ate his meal);NT, no HSM, BS+ ext - no edema, pulses 2+ b/l Discharge Data Allergies Allergy/AdvReac Type Severity Reaction Status Date / Time Penicillins Allergy Severe FACIAL Verified 06/18/22 17:19 SWELLING AND RASH amoxicillin Allergy Intermediate RASH Verified 06/18/22 17:19 clavulanic acid Allergy Intermediate RASH Verified 06/18/22 17:19 cholestyramine Allergy Unknown per nephro Verified 06/18/22 17:19 note niacin Allergy Unknown per nephro Verified 06/18/22 17:19 note phenylephrine Allergy Unknown per nephro Verified 06/18/22 17:19 note Ruawghl-DVC-VeH Reductase Allergy Unknown JOINT Verified 06/18/22 17:19 Inhibitor STIFFNESS [Ilbbtdu-Dcf-Tph Reductase AND PAIN Inhibitor] azithromycin Allergy PER NEPHRO Verified 06/18/22 17:19 NOTE Consultations 06/18/22 13:24 ED Decision to Admit Stat Ordered Studies 06/18/22 11:37 CT head/brain wo con Stat Hospital Course (1) Pneumonia due to COVID-19 virus: clinically resolved no longer on steroids stable in room air no symptoms (2) COPD (chronic obstructive pulmonary disease): cont all home inhalers no flare at this time #1 resolved (3) Rhabdomyolysis: 2nd to fall at home. CPK ~1000 at peak. resolved (4) OLIVER (acute kidney injury): in setting of stage 3B CKD with baseline Cr 2 to 2.5 presented with Cr 2.8; now 2.3 thus - OLIVER resolved etiology - rhabdomyolysis, volume contraction, COVID, some obstruction - likely all were to blame had amaro - amaro now d/c and voiding fine (5) Chronic renal failure (CRF), stage 3b: baseline CrCl low 30s baseline Creatinine 2 to 2.5 Cr today 2.3 (6) Diabetes mellitus type 2, uncontrolled: Hba1c 9.8% Pharmacy has been consulted for glycemic management and continues to adjust his basal-bolus insulin Appreciate pharmacy assistance (7) Permanent atrial fibrillation: cont metoprolol succinate 100mg daily cont Eliquis 5mg BID for chronic AC rates acceptable (8) Chronic systolic CHF (congestive heart failure): EF 45-50% on echo in 2019. He uses lasix on sliding scale basis. If weight is 239 or less he takes 40mg/day. 240-245 - he takes 60mg/day of lasix. >245 - takes 80mg/day of lasix. remains <230 pounds and appears compensated cont BB lasix prn (9) BPH with obstruction/lower urinary tract symptoms: had amaro early in stay due to retention amaro now d/c and voiding ok cont flomax cont finasteride (10) CAD (coronary artery disease): cont plavix qod cont metoprolol no ischemic symptoms at this time HS trop scantly elevated with peak of 56 at presentation -- likely myocardial demand ischemia in setting of his COVID infection, fall, etc (11) Diabetic nephropathy: baseline Cr 2 to 2.5 Cr today 2.3 (12) Hypertension: controlled with current meds (13) Morbid obesity: BMI 34-35 (14) Dementia: cont aricept no behavioral disturbance at this time (15) Tracheomalacia: no Rx needed noted on prior CT scans follows with Dr Aziza swartz in [place] (16) Restrictive lung disease: severe based on prior PFTs 2nd obesity? other? stable sats in room air (17) DVT prophylaxis: Eliquis 5mg BID Plan awaiting auth for rehab Home Health Attestation I certify that this patient is under my care and that I, or a physicians blood bank assistant working with me, had a face to-face encounter that meets the home health [id number] encounter requirements with this patient. The encounter with the patient was in whole, or in part, for the following medical condition, which is the primary reason for home health care (list medical condition): I certify that, based on my findings, the following services are medically necessary home health services: My clinical findings support the need for the above services because: OT Assess ADL Status and Restore Function w ADLs PT Assessment for Endurance / Balance / Strength PT Eval for Safety, Gait Training, Assistive Devices Further, I certify that my clinical findings support that this patient is homebound (i.e. absences from home require considerable and taxing effort and are for medical reasons or druze services or infrequently or of short duration when for other reasons) because: Supportive Aid - Walker Transportation Assistance/Unable to Leave Home Unassisted Certification for Home Health Services: Based on the above findings, I certify that this patient is confined to the home and needs intermittent half-way care, physical therapy and/or speech therapy or continues to need occupational therapy. The patient is under my care, and I have initiated the establishment of the plan of care. This patient will be followed by a physician who will periodically review the plan of care. Discharge Plan Discharge Items Patient Disposition: Home - Home Health Services Reason For Visit: COVID infection Discharge Diagnosis: 1. COVID-19 infection with probable pneumonia - resolved 2. Confusion due to #1 - resolved 3. Deconditioning due to #1 - improving 4. Atrial fibrillation 5. COPD 6. Chronic kidney disease 7. Dementia Activity: As commented below Activity Comment: Gradually increase activities over the next 7-10 days Non-emergency contact: Primary Care Provider Call non-emergency contact if: you have any medication questions, your symptoms worsen and you have a fever Follow-up/Referrals: Bon Macias MD [Primary Care Provider] - 07/03/22 10:00 am Diet: Carb Consistent or DM2 and Heart Healthy Addtl Attending Provider Instructions: Mr Petty, You were hospitalized due to COVID-19 infection with likely pneumonia from the COVID. You improved with supportive care measures and time. You only briefly needed oxygen very early in your stay. Other medical problems including a.fib, congestive heart failure, etc remained stable. Your diabetes was difficult to control at times and thus our pharmacy diabetes team provided recommendations for your insulin while hospitalized. Initially it was thought that you would need rehab due to deconditioning from your illness. However, your insurance denied the request to go to rehab at [facility]. At this time, however, you have improved with your walking to a point where your family feels comfortable with you returning home. We will set you up with home physical therapy to help improve improve your strength as you recover. Recommendations - 1. Novolog 70/30 -- * increase your morning dose from 60 units to 70 units; take with breakfast * leave your evening dose alone at 60 units as previous 2. At this time you are free to enter the community without risk of spreading COVID to others. You are no longer contagious. With that said please continue to mask when you leave your home to prevent acquiring other infections this winter (the Flu, RSV, etc). 3. You likely have another 1-2 weeks of recovery at home. During this time period you may need to rest more than usual. This is common during the recovery phase of COVID. Follow-up - see the [place] [facility] as scheduled on 07/03/22 Return to [facility] if - * you have fevers over 100 degrees * you have worsening shortness of breath or chest pain * you have uncontrolled blood sugars (consistently over 300, or consistently less than 70) * you are feeling dizzy or lightheaded * any other concerns It was our pleasure to care for you! Enjoy being home, Dr Basurto Pending Studies at Discharge: No Stand-Alone Forms: My [facility], Smoking Cessation Medications and DC Order Prescriptions: Continued (DME) insulin syringe-needle U-100 [BD Insulin Syringe Ultra-Fine] 0.5 mL 31 gauge x 5/16" syringe See Rx Instructions .ROUTE .MEDSUPPLY Qty: 300 3RF Rx Instructions: Three times a day metoprolol succinate 100 mg tablet extended release 24 hr 100 mg PO QAM Qty: 90 3RF clopidogrel 75 mg tablet 75 mg PO Q2D Qty: 45 3RF Rx Instructions: Even Days, at bedtime. (DME) pen needle, diabetic [BD Ultra-Fine Short Pen Needle] 31 gauge x 5/16" needle See Rx Instructions .ROUTE .MEDSUPPLY Qty: 100 3RF Rx Instructions: One daily hydralazine 50 mg tablet 100 mg PO QID 90 Days Qty: 720 3RF (DME) OneTouch Ultra Test Strip See Rx Instructions .Route Qty: 400 3RF Rx Instructions: Test blood sugars 4 times a day insulin degludec [Tresiba FlexTouch U-100] 100 unit/mL (3 mL) insulin pen 22 unit SQ QPM Qty: 15 3RF potassium chloride 20 mEq tablet extended release 20 meq PO QAM PRN (Reason: Muscle Cramps from Lasix) Qty: 60 2RF Rx Instructions: TAKES ON DAYS YOU TAKE FUROSEMIDE furosemide 40 mg tablet 40 mg PO .COMPLEX Qty: 240 3RF Rx Instructions: 40 mg PO; <239 lb.furosemide 40 mg 240-245furosemide 60 mg >245furosemide 80 mg Trelegy Ellipta 100-62.5-25 mcg blister with device 1 inh inhalation DAILY Qty: 60 5RF Eliquis 5 mg tablet 5 mg PO BID Qty: 180 3RF tamsulosin 0.4 mg capsule 0.4 mg PO DAILY Qty: 90 1RF finasteride 5 mg tablet 5 mg PO DAILY Qty: 90 1RF donepezil 10 mg tablet 10 mg PO QAM Qty: 90 3RF pantoprazole 40 mg tablet,delayed release (DR/EC) 40 mg PO DAILY Qty: 90 3RF Gemtesa 75 mg tablet 75 mg PO DAILY Qty: 30 5RF nitroglycerin [Nitrostat] 0.4 mg tablet, sublingual 0.4 mg Sublingual UD PRN (Reason: Chest Pain) Qty: 1 5RF Rx Instructions: TAKES 1 TAB UNDER TONGUE EVERY 5 MINUTES NEEDED albuterol sulfate [Ventolin HFA] 90 mcg/actuation HFA aerosol inhaler 2 puff inhalation DAILY PRN (Reason: shortness of breath or wheezing) Qty: 8.5 4RF Rx Instructions: INHALE ONE PUFF BY MOUTH EVERY 6 HOURS NEEDED for shortness of breath or wheezing (DME) Discontinue DME Misc See Rx Instructions .MEDSUPPLY Qty: 1 0RF Rx Instructions: Discontinue portable oxygen Jardiance 25 mg tablet 25 mg PO DAILY Qty: 90 3RF ipratropium-albuterol 0.5 mg-3 mg(2.5 mg base)/3 mL solution for nebulization 3 ml inhalation Q8H PRN (Reason: shortness of breath or wheezing) Qty: 180 4RF (DME) Aeroneb Go Nebulizer Misc See Rx Instructions .MEDSUPPLY Qty: 1 0RF Rx Instructions: With tubing and supplies. J44.9. J45.9. sertraline 100 mg tablet 150 mg PO DAILY 90 Days Qty: 135 3RF (DME) lancets [OneTouch UltraSoft Lancets] Misc See Rx Instructions .ROUTE .MEDSUPPLY Qty: 400 3RF Rx Instructions: Test blood sugar four times a day budesonide 0.25 mg/2 mL suspension for nebulization 0.25 mg inhalation BID PRN (Reason: Shortness Of Breath Or Wheezing) (DME) Portable Oxygen Misc See Rx Instructions .ROUTE .MEDSUPPLY Rx Instructions: USE 2L/M WHILE AMBULATING R09.02 latanoprost [Xalatan] 0.005 % Drops 1 drp OPB PM glucosamine sulfate [Glucosamine] 500 mg Tablet 2 tabs PO QAM dorzolamide [Trusopt] 2 % Drops 1 drp OPB BID Mag 64 64 mg Tablet,Delayed Release (Dr/Ec) 64 mg PO QAM Changed insulin asp prt-insulin aspart [Novolog Mix 70-30FlexPen U-100] 100 unit/mL (70-30) insulin pen See Rx Instructions .ROUTE .COMPLEX 90 Days Qty: 45 5RF Rx Instructions: 70 units with breakfast; 60 units with dinner/evening meal. Discharge Orders: Discharge Order (Routine); Ordered 06/28/22 Ordered By: Colten Basurto Admission Data Admit Date/Time: 06/18/22 14:08 Attending Provider: Colten Basurto Admit Provider: Valentino Meyers Primary Care Provider: Bon Macias Other Providers: [facility] ; [facility] ; Valentino Meyers ; [facility] Coding Diagnoses Pneumonia due to COVID-19 virus U07.1; J12.82 COPD (chronic obstructive pulmonary disease) J44.9 Rhabdomyolysis M62.82 OLIVER (acute kidney injury) N17.9 Chronic renal failure (CRF), stage 3b N18.32 Diabetes mellitus type 2, uncontrolled Permanent atrial fibrillation I48.21 Chronic systolic CHF (congestive heart failure) I50.22 BPH with obstruction/lower urinary tract symptoms N40.1; N13.8 CAD (coronary artery disease) I25.10 Coronary Disease-Associated Artery/Lesion type: [place] artery [place] vs. transplanted heart: [place] heart Associated angina: without angina Diabetic nephropathy E11.21 Hypertension I10 Hypertension type: essential hypertension Morbid obesity E66.01 Dementia F03.90 Tracheomalacia J39.8 Restrictive lung disease J98.4 DVT prophylaxis Z29.9
== END 2022-06-28 17:14 | disposition home health service (06) | DRG 177 ==
LOC: ED 10:53 → 2E 14:08 → SUATTDRO 14:08 → 2E 16:01 → 3E 06-24 00:59

== ENCOUNTER 2022-08-22 09:09 | Inpatient (IN) ==
--- NOTE | 2022-08-22 09:17 | Emergency Department Note ---
Impression & Plan Acute exacerbation of CHF (congestive heart failure), Wheezing, Elevated brain natriuretic peptide (BNP) level ED Provider Note NAME: JAMIE CANO AGE: 77 SEX: M : 1945 ARRIVES VIA: Ambulance INFORMANT: Patient, ED PROVIDER(S): Demarcus Hong MD CHIEF COMPLAINT: Shortness of breath MEDICAL DECISION MAKING: Patient presents due to concern for shortness of breath ongoing the last several days. IV was established blood work was obtained and the patient was ordered IV Lasix as well as a DuoNeb treatment. The patient does have mild wheezing and expiratory throughout. Patient's blood work shows mild white count of 11.9 with a normal H&H and platelet count. The patient's kidney function is at baseline with creatinine 1.9. Troponin is not significantly elevated but is 23. The patient's BNP is 290. The patient already did receive some IV Lasix. Patient's bio fire is negative. The patient's chest x-ray shows no acute disease. Prior /Outside records reviewed: Did review the most recent cardiology visit with Dr. Motley from July 25, 2022. This reported the patient does suffer from chronic WLAL and does have recommendations for how much Lasix to take based on weight which she is to take 40 mg if he is under to 4060 mg 20 to 40-45 and if he is greater than 245 pounds take Lasix 80. Patient was hospitalized in June 2022 for 10 days due to COVID-19 most recent echocardiogram from July 2022 showed LV systolic function normal EF of 60 to 65% mild concentric LVH no regional wall motion abnormality and mild mitral regurg. The review the patient's past medical history was noticed patient has a history of CHF A-fib long-term anticoagulant use CAD COPD diabetes and GERD. Patient is on apixaban and Plavix Differential diagnosis: Reactive airway disease, pneumonia, pneumothorax, COPD, CHF, infections, cardiac ischemia, pulmonary embolism, musculoskeletal, dehydration, as well as other pathologies. Diagnostics, as interpreted by me: ECG: Likely flutter with variable block, ventricular rate of 97, normal QRS, normal axis PVC noted. No obvious ST elevations. Cardiac monitoring: An order was placed for continuous cardiac monitoring. The monitor shows a rate of 92 with irregular irregular rhythm. Patient was placed on pulse oximetry Medical decision rules: None Imaging studies: See below I informally interpreted the patient's chest x-ray no evidence of obvious pneumothorax. HPI: Patient presents due to concern for shortness of breath ongoing for the last several days. The patient does believe it has gotten progressively worse with associated WALL. No significant orthopnea but he does believe is related to fluid as well as increased lower extremity edema. Patient is unsure as to whether or not he has had any weight gain. The patient has not increase his Lasix at home. Patient denies any chest pains. The patient does have occasional cough which is nonproductive. The patient does use his inhalers which does cause improvement in symptoms. Patient denies any nausea vomiting diarrhea. Patient is not had a bowel movement approximate 2 days. PAST MEDICAL HISTORY: See Below PAST SURGICAL HISTORY: See Below SOCIAL HISTORY: See Below HOME MEDICATIONS: See Below ALLERGIES: See Below VITALS: See Below PHYSICAL EXAMINATION: GENERAL: NAD, non-toxic. EYE EXAM: Normal conjunctiva. PERRL, no anisocoria and EOM's grossly intact w/o pain. NECK: Supple, no nuchal rigidity, no adenopathy, non-tender. No signs of meningismus. FROM of the neck with good chin to chest and neck extension. No stridor. LUNGS: End expiratory wheezing throughout, slightly decreased breath sounds left base normal chest wall mechanics. HEART: NSR, no MRG. ABDOMEN: Abdomen soft, non-tender, no masses, no rebound or guarding. BACK: No CVA TTP. SKIN: No rashes and no bruising. UPPER EXTREMITIES: Upper extremities are grossly normal. LOWER EXTREMITIES: Grossly normal, 1-2+ bilateral symmetric lower extremity edema without any calf pain or erythema NEURO EXAM: A&O x3, cranial nerves II-XII grossly intact, normal speech, moves all 4 extremities. Past Med/Surg History Medical History Acute diastolic CHF (congestive heart failure) Alzheimer disease on donepezil Anticoagulant long-term use Atrial fibrillation metoprolol/apixaban Bladder cancer 2014--sx Bladder cancer BPH (benign prostatic hyperplasia) BPH with obstruction/lower urinary tract symptoms CAD (coronary artery disease) follows with Dr. Motley Cancer of skin of back removed Cancer of skin of left ear removed CHF (congestive heart failure) Chronic kidney disease, stage III (moderate) follows with Dr. Joseph COPD (chronic obstructive pulmonary disease) Degenerative disc disease Depression (Unknown) Diabetes mellitus, type II, insulin dependent Diabetic nephropathy Diabetic peripheral neuropathy Diabetic retinopathy, nonproliferative, mild Diabetic ulcer of toe of left foot WALL (dyspnea on exertion) Dysphagia causing pulmonary aspiration with swallowing GERD (gastroesophageal reflux disease) Glaucoma Hearing deficit History of colon polyps History of restrictive lung disease Hyperlipidemia Hypertension Leaking of urine On home O2 2 LPM PRN Surgical History H/O heart artery stent (2015) 2012 x 1 2015 x 3 2017 x 1 ( showed severe 99 % mid RCA in stent restenoses which was treated with drug-eluting stent) History of bilateral cataract extraction History of bladder surgery 2014 bladder tumor removal @ [facility] History of cardiac cath x3--2011, 2014, 2017 @ [facility] History of colonoscopy History of skin surgery removal of basal cell carcinoma from L side of face, 08/24/[address] Velazquez History of tonsillectomy and adenoidectomy Family History Mother Family history of diabetes mellitus COPD (chronic obstructive pulmonary disease) Lung cancer Father Family history of diabetes mellitus Acute appendicitis Brother Hx of CABG Myocardial infarction Sister Heart disease Myocardial infarction Other Coronary heart disease Denies family history of Ovarian cancer Prostate cancer Kidney disease Breast cancer Colorectal cancer Social History Smoking Status: Former smoker Tobacco Type: Cigarettes Age Started Using Tobacco: 14; Age Quit Using Tobacco: 29; packs per day: 1; Second Hand Exposure: No; Hx Alcohol Use: No Hx Substance Use: No Preferred Language: Gambian Communication Ability: Impaired Visual Impairment: No Limitations Hearing Ability: Hard of Hearing Wardrobe Supervisor Required: No Beliefs That Will Affect Care: None marital status: Current Living Situation: Spouse current occupational status: retired 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 Feels Safe at Home: Yes Safety Concerns: Feels Safe At This Time Childhood Exposure to Second-Hand Smoke: Yes caffeine: Yes Dental Care, Regularly: No Physical Activity Frequency: Does not Exercise Seatbelt Use: always Sunscreen Use: No Assistive Devices: Cane and Walker Allergies Allergies Allergy/AdvReac Type Severity Reaction Status Date / Time Penicillins Allergy Severe FACIAL Verified 08/22/22 11:06 SWELLING AND RASH amoxicillin Allergy Intermediate RASH Verified 08/22/22 11:06 clavulanic acid Allergy Intermediate RASH Verified 08/22/22 11:06 cholestyramine Allergy Unknown per nephro Verified 08/22/22 11:06 note niacin Allergy Unknown per nephro Verified 08/22/22 11:06 note phenylephrine Allergy Unknown per nephro Verified 08/22/22 11:06 note Tiejqks-[id number] Reductase Allergy Unknown JOINT Verified 08/22/22 11:06 Inhibitor STIFFNESS [[id number] Reductase AND PAIN Inhibitor] azithromycin Allergy PER NEPHRO Verified 08/22/22 11:06 NOTE Home Meds Home Medications Medication Instructions Recorded Confirmed dorzolamide 2 % eye drops (Trusopt) 1 drp OPB BID 03/13/18 08/22/22 glucosamine sulfate 500 mg tablet 2 tabs PO QAM 03/13/18 08/22/22 (Glucosamine) latanoprost 0.005 % eye drops 1 drp OPB PM 03/13/18 08/22/22 (Xalatan) magnesium chloride 64 mg 64 mg PO QAM 03/13/18 08/22/22 (magnesium chloride) tablet,delayed release (Mag 64) budesonide 0.25 mg/2 mL suspension 0.25 mg inhalation BID PRN 09/28/21 08/22/22 for nebulization Shortness Of Breath Or Wheezing cholecalciferol (vitamin D3) 125 125 mcg PO DAILY 08/08/22 08/22/22 mcg (5,000 unit) capsule levothyroxine 100 mcg tablet 100 mcg PO DAILY 08/08/22 08/22/22 evolocumab 140 mg/mL subcutaneous 140 mg subcut WK 08/22/22 08/22/22 pen injector (Genoveva Bello) Previous Rx's Medication Instructions Recorded nitroglycerin 0.4 mg sublingual 0.4 mg sublingual UD PRN Chest 03/12/19 tablet (Nitrostat) Pain #1 btl OneTouch UltraSoft Lancets #400 ea 05/23/19 (lancets) insulin syringe-needle U-100 0.5 #300 ea 08/13/19 mL 31 gauge x 5/16" (BD Insulin Syringe Ultra-Fine) ipratropium 0.5 mg-albuterol 3 mg 3 ml inhalation Q8H PRN shortness 10/04/20 (2.5 mg base)/3 mL nebulization of breath or wheezing #180 mL soln nebulizers (Aeroneb Go Nebulizer) #1 ea 10/04/20 albuterol sulfate 90 mcg/actuation 2 puff inhalation DAILY PRN 12/29/21 aerosol inhaler (Ventolin HFA) shortness of breath or wheezing #8.5 grams metoprolol succinate 100 mg 100 mg PO QAM #90 tabs 01/02/22 tablet,extended release 24 hr BD Ultra-Fine Short Pen Needle 31 #100 ea 01/17/22 gauge x 5/16" (pen needle, diabetic) clopidogrel 75 mg tablet 75 mg PO Q2D #45 tabs 01/17/22 hydralazine 50 mg tablet 100 mg PO QID 90 days #720 tabs 01/17/22 blood sugar diagnostic (OneTouch #400 ea 01/23/22 Ultra Test strips) insulin degludec 100 unit/mL (3 22 unit (0.22 mL) subcut QPM #15 mL 03/23/22 mL) subcutaneous pen (Tresiba FlexTouch U-100 insulin) potassium chloride 20 mEq 20 meq PO QAM PRN Muscle Cramps 03/30/22 tablet,extended release from Lasix #60 tabs furosemide 40 mg tablet 40 mg PO .COMPLEX Edema #240 tabs 04/13/22 fluticasone fur. 100 mcg-umeclid 1 inh inhalation DAILY #60 ea 04/24/22 62.5 mcg-vilant 25 mcg inhalat.powder (Trelegy Ellipta) apixaban 5 mg tablet (Eliquis) 5 mg PO BID #180 tabs 04/28/22 empagliflozin 25 mg tablet 25 mg PO DAILY #90 tabs 05/04/22 finasteride 5 mg tablet 5 mg PO DAILY #90 tabs 05/09/22 tamsulosin 0.4 mg capsule 0.4 mg PO DAILY #90 caps 05/09/22 donepezil 10 mg tablet 10 mg PO QAM #90 tabs 05/29/22 pantoprazole 40 mg tablet,delayed 40 mg PO DAILY #90 tabs 06/05/22 release vibegron 75 mg tablet (Gemtesa) 75 mg PO DAILY #30 tabs 01/25/23 Novolog Mix 70-30 FlexPen U-100 See Rx Instructions .Route 06/28/22 Insulin 100 unit/mL subcutaneous .COMPLEX 90 days #45 mL pen (insulin asp prt-insulin aspart) insulin aspart U-100 100 unit/mL See Rx Instructions subcut 08/04/22 (3 mL) subcutaneous pen (Novolog .COMPLEX #15 mL FlexPen U-100 Insulin aspart) sertraline 100 mg tablet 150 mg PO DAILY 90 days #135 tabs 08/14/22 methylprednisolone 4 mg tablets in See Rx Instructions .Route 08/21/22 a dose pack (Medrol (Andrea)) .COMPLEX #21 ea Results & Data (ED) Vital Signs Vital Signs - 24 hr 08/22/22 09:17 08/22/22 09:24 08/22/22 09:28 Temperature 37 C Temperature Source Oral Pulse Rate 94 H Pulse Rate from SpO2 Sensor Pulse Rhythm Irregular Respiratory Rate 18 Respiratory Effort / Characteristics Non-Labored Spontaneous Respiratory Depth Normal Respiratory Pattern Regular Blood Pressure 158/88 H Blood Pressure Mean 111 Pulse Oximetry 94 94 95 Oxygen Delivery Method Room Air Room Air Room Air Sepsis Recent Fever Within 48 Hours No Sepsis New/Unexplained Change in Mental Status No Sepsis Action Taken by Nursing No Action Required 08/22/22 09:32 08/22/22 09:31 08/22/22 09:52 Temperature Temperature Source Pulse Rate 90 95 H Pulse Rate from SpO2 Sensor 97 H Pulse Rhythm Respiratory Rate 21 Respiratory Effort / Characteristics Respiratory Depth Respiratory Pattern Blood Pressure 168/79 H Blood Pressure Mean 108 Pulse Oximetry 92 Oxygen Delivery Method Sepsis Recent Fever Within 48 Hours Sepsis New/Unexplained Change in Mental Status Sepsis Action Taken by Nursing 08/22/22 09:52 08/22/22 10:00 08/22/22 10:00 Temperature Temperature Source Pulse Rate 92 H 101 H Pulse Rate from SpO2 Sensor 98 H 100 H Pulse Rhythm Respiratory Rate 23 20 Respiratory Effort / Characteristics Respiratory Depth Respiratory Pattern Blood Pressure 150/85 H Blood Pressure Mean 106 Pulse Oximetry 96 93 Oxygen Delivery Method Sepsis Recent Fever Within 48 Hours Sepsis New/Unexplained Change in Mental Status Sepsis Action Taken by Nursing 08/22/22 10:30 08/22/22 11:00 08/22/22 11:30 Temperature Temperature Source Pulse Rate 106 H 95 H Pulse Rate from SpO2 Sensor Pulse Rhythm Respiratory Rate 21 22 Respiratory Effort / Characteristics Respiratory Depth Respiratory Pattern Blood Pressure 139/89 Blood Pressure Mean 105 Pulse Oximetry 93 Oxygen Delivery Method Sepsis Recent Fever Within 48 Hours Sepsis New/Unexplained Change in Mental Status Sepsis Action Taken by Nursing 08/22/22 11:30 08/22/22 12:00 08/22/22 12:02 Temperature Temperature Source Pulse Rate 92 H 101 H 90 Pulse Rate from SpO2 Sensor 87 95 H 102 H Pulse Rhythm Respiratory Rate 23 20 22 Respiratory Effort / Characteristics Respiratory Depth Respiratory Pattern Blood Pressure Blood Pressure Mean Pulse Oximetry 91 92 91 Oxygen Delivery Method Room Air Sepsis Recent Fever Within 48 Hours Sepsis New/Unexplained Change in Mental Status Sepsis Action Taken by Nursing 08/22/22 12:02 08/22/22 12:30 08/22/22 12:30 Temperature Temperature Source Pulse Rate 93 H Pulse Rate from SpO2 Sensor 84 Pulse Rhythm Respiratory Rate 18 Respiratory Effort / Characteristics Respiratory Depth Respiratory Pattern Blood Pressure 167/126 H 129/78 Blood Pressure Mean 139 95 Pulse Oximetry 93 Oxygen Delivery Method Sepsis Recent Fever Within 48 Hours Sepsis New/Unexplained Change in Mental Status Sepsis Action Taken by Shelter Medications Current Medication List: was personally reviewed by me Laboratory Data Attestation: I reviewed the patient's lab results. 08/22/22 10:21 08/22/22 10:25 Lab Results 08/22/22 08/22/22 08/22/22 Range/Units 09:30 09:30 09:30 WBC Cancelled RBC Cancelled Hgb Cancelled POC Hgb (14.0-18.0) g/dl Hct Cancelled POC Hct (42-52) % MCV Cancelled MCH Cancelled MCHC Cancelled RDW Std Deviation Cancelled RDW Coeff of Carolyn Cancelled Plt Count Cancelled MPV Cancelled Immature Gran % (Auto) Cancelled Neut % (Auto) Cancelled Lymph % (Auto) Cancelled [place] % (Auto) Cancelled Eos % (Auto) Cancelled Baso % (Auto) Cancelled Neut # (Auto) Cancelled Lymph # (Auto) Cancelled [place] # (Auto) Cancelled Eos # (Auto) Cancelled Baso # (Auto) Cancelled Immature Gran # (Auto) Cancelled Absolute Nucleated RBC Cancelled Nucleated RBC % (auto) Cancelled Neutrophils % (Manual) Cancelled Band Neutrophils % Cancelled Lymphocytes % (Manual) Cancelled Prolymphocyte % Cancelled Reactive Lymphs % (Man) Cancelled Monocytes % (Manual) Cancelled Eosinophils % (Manual) Cancelled Basophils % (Manual) Cancelled Metamyelocytes % (Man) Cancelled Myelocytes % (Man) Cancelled Promyelocytes % (Man) Cancelled Blast Cells % (Manual) Cancelled Plasma Cell % (Manual) Cancelled Other Cells % Cancelled Nucleated RBC % Cancelled Neutrophils # (Manual) Cancelled Band Neutrophils # Cancelled Total Absolute Neuts Cancelled Lymphocytes # (Manual) Cancelled Prolymphocyte # Cancelled Reactive Lymphs # Cancelled Total Abs Lymphocytes Cancelled Monocytes # (Manual) Cancelled Eosinophils # (Manual) Cancelled Basophils # (Manual) Cancelled Metamyelocytes # (Man) Cancelled Myelocytes # (Manual) Cancelled Promyelocytes # (Man) Cancelled Blast Cells # (Man) Cancelled Plasma Cell # (Manual) Cancelled Other Cells # Cancelled Nucleated RBCs # (Man) Cancelled Hypersegmented Neuts Cancelled Hyposegmented Neuts Cancelled Hypogranular Neuts Cancelled Large Granular Lymphs Cancelled # Lrg Granular Lymphs Cancelled Hairy Cells Cancelled Smudge Cells Cancelled Toxic Granulation Cancelled Toxic Vacuolation Cancelled Dohle Bodies Cancelled Evgeny Rods Cancelled Platelet Estimate Cancelled Hypogranular Platelets Cancelled Giant Platelets Cancelled Platelet Satelliting Cancelled RBC Morphology Cancelled Polychromasia Cancelled Hypochromasia Cancelled Poikilocytosis Cancelled Basophilic Stippling Cancelled Anisocytosis Cancelled Microcytosis Cancelled Macrocytosis Cancelled Spherocytes Cancelled Pappenheimer Bodies Cancelled Sickle Cells Cancelled Target Cells Cancelled Tear Drop Cells Cancelled Ovalocytes Cancelled Stomatocytes Cancelled [place] Bodies Cancelled Echinocytes Cancelled Acanthocytes (Spur) Cancelled Rouleaux Cancelled RBC Agglutinates Cancelled Schistocytes Cancelled Sezary Cell Cancelled PT Cancelled INR Cancelled APTT Cancelled PTT Ratio Cancelled D-Dimer (0-500) ug/L FEU POC Sodium (135-144) mmol/L Sodium TNP POC Potassium (3.3-5.0) mmol/L Potassium TNP POC Chloride (101-112) mmol/L Chloride 106 (98-107) mmol/L Carbon Dioxide 27 (21-32) mmol/L POC Total CO2 (24-31) mmol/L Anion Gap TNP POC Anion Gap (16-25) mmol/L POC BUN (7-18) mg/dl BUN 35 H (6-23) mg/dl Creatinine 1.99 H (0.6-1.4) mg/dl POC Creatinine (0.6-1.3) mg/dl Est Cr Clr Drug Dosing 35.6 ml/min Est GFR ( Amer) 35.9 ml/min Est GFR (Non-Af Amer) 31.0 ml/min BUN/Creatinine Ratio 17.6 (10-20) Glucose 78 (70-99(Fasting)) mg/dl POC Glucose (other) (70-99) mg/dl Calcium 9.3 (8.6-10.3) mg/dl POC Ioniz Calcium Juan (1.12-1.32) mmol/l Magnesium TNP Total Bilirubin 0.7 (0.2-1.0) mg/dl AST TNP ALT 15 (7-52) U/L Alkaline Phosphatase 79 (34-104) U/L Troponin I High Sens 23.0 H (0-20) pg/ml B-Natriuretic Peptide (0-100) pg/ml Total Protein 7.2 (6.0-8.3) gm/dl Albumin 4.0 (3.4-5.0) gm/dl Globulin 3.2 (2.5-4.0) gm/dl Albumin/Globulin Ratio 1.3 (0.9-2) SARS-CoV-2, RNA, NAAT (NEGATIVE) Blood Parasites ID Cancelled 08/22/22 08/22/22 08/22/22 Range/Units 09:30 09:34 10:21 WBC RBC Hgb POC Hgb 16.0 (14.0-18.0) g/dl Hct POC Hct 47 (42-52) % MCV MCH MCHC RDW Std Deviation RDW Coeff of Carolyn Plt Count MPV Immature Gran % (Auto) Neut % (Auto) Lymph % (Auto) [place] % (Auto) Eos % (Auto) Baso % (Auto) Neut # (Auto) Lymph # (Auto) [place] # (Auto) Eos # (Auto) Baso # (Auto) Immature Gran # (Auto) Absolute Nucleated RBC Nucleated RBC % (auto) Neutrophils % (Manual) Band Neutrophils % Lymphocytes % (Manual) Prolymphocyte % Reactive Lymphs % (Man) Monocytes % (Manual) Eosinophils % (Manual) Basophils % (Manual) Metamyelocytes % (Man) Myelocytes % (Man) Promyelocytes % (Man) Blast Cells % (Manual) Plasma Cell % (Manual) Other Cells % Nucleated RBC % Neutrophils # (Manual) Band Neutrophils # Total Absolute Neuts Lymphocytes # (Manual) Prolymphocyte # Reactive Lymphs # Total Abs Lymphocytes Monocytes # (Manual) Eosinophils # (Manual) Basophils # (Manual) Metamyelocytes # (Man) Myelocytes # (Manual) Promyelocytes # (Man) Blast Cells # (Man) Plasma Cell # (Manual) Other Cells # Nucleated RBCs # (Man) Hypersegmented Neuts Hyposegmented Neuts Hypogranular Neuts Large Granular Lymphs # Lrg Granular Lymphs Hairy Cells Smudge Cells Toxic Granulation Toxic Vacuolation Dohle Bodies Evgeny Rods Platelet Estimate Hypogranular Platelets Giant Platelets Platelet Satelliting RBC Morphology Polychromasia Hypochromasia Poikilocytosis Basophilic Stippling Anisocytosis Microcytosis Macrocytosis Spherocytes Pappenheimer Bodies Sickle Cells Target Cells Tear Drop Cells Ovalocytes Stomatocytes [place] Bodies Echinocytes Acanthocytes (Spur) Rouleaux RBC Agglutinates Schistocytes Sezary Cell PT INR APTT PTT Ratio D-Dimer (0-500) ug/L FEU POC Sodium 142 (135-144) mmol/L Sodium POC Potassium 4.8 (3.3-5.0) mmol/L Potassium POC Chloride 105 (101-112) mmol/L Chloride (98-107) mmol/L Carbon Dioxide (21-32) mmol/L POC Total CO2 28 (24-31) mmol/L Anion Gap POC Anion Gap 14.0 L (16-25) mmol/L POC BUN 50 H (7-18) mg/dl BUN (6-23) mg/dl Creatinine (0.6-1.4) mg/dl POC Creatinine 2.1 H (0.6-1.3) mg/dl Est Cr Clr Drug Dosing ml/min Est GFR ( Amer) ml/min Est GFR (Non-Af Amer) ml/min BUN/Creatinine Ratio (10-20) Glucose (70-99(Fasting)) mg/dl POC Glucose (other) 81 (70-99) mg/dl Calcium (8.6-10.3) mg/dl POC Ioniz Calcium Juan 1.13 (1.12-1.32) mmol/l Magnesium Total Bilirubin (0.2-1.0) mg/dl AST ALT (7-52) U/L Alkaline Phosphatase (34-104) U/L Troponin I High Sens (0-20) pg/ml B-Natriuretic Peptide 290 H (0-100) pg/ml Total Protein (6.0-8.3) gm/dl Albumin (3.4-5.0) gm/dl Globulin (2.5-4.0) gm/dl Albumin/Globulin Ratio (0.9-2) SARS-CoV-2, RNA, NAAT NEGATIVE (NEGATIVE) Blood Parasites ID 08/22/22 08/22/22 08/22/22 Range/Units 10:21 10:25 10:26 WBC 11.96 H RBC 5.57 Hgb 15.8 POC Hgb (14.0-18.0) g/dl Hct 48.7 POC Hct (42-52) % MCV 87.4 MCH 28.4 MCHC 32.4 RDW Std Deviation 50.0 H RDW Coeff of Carolyn 15.7 H Plt Count 254 MPV 9.4 Immature Gran % (Auto) 0.3 Neut % (Auto) 80.0 Lymph % (Auto) 9.3 [place] % (Auto) 8.9 Eos % (Auto) 0.6 Baso % (Auto) 0.9 Neut # (Auto) 9.56 H Lymph # (Auto) 1.11 L [place] # (Auto) 1.07 H Eos # (Auto) 0.07 Baso # (Auto) 0.11 Immature Gran # (Auto) 0.04 Absolute Nucleated RBC Nucleated RBC % (auto) Neutrophils % (Manual) Band Neutrophils % Lymphocytes % (Manual) Prolymphocyte % Reactive Lymphs % (Man) Monocytes % (Manual) Eosinophils % (Manual) Basophils % (Manual) Metamyelocytes % (Man) Myelocytes % (Man) Promyelocytes % (Man) Blast Cells % (Manual) Plasma Cell % (Manual) Other Cells % Nucleated RBC % Neutrophils # (Manual) Band Neutrophils # Total Absolute Neuts Lymphocytes # (Manual) Prolymphocyte # Reactive Lymphs # Total Abs Lymphocytes Monocytes # (Manual) Eosinophils # (Manual) Basophils # (Manual) Metamyelocytes # (Man) Myelocytes # (Manual) Promyelocytes # (Man) Blast Cells # (Man) Plasma Cell # (Manual) Other Cells # Nucleated RBCs # (Man) Hypersegmented Neuts Hyposegmented Neuts Hypogranular Neuts Large Granular Lymphs # Lrg Granular Lymphs Hairy Cells Smudge Cells Toxic Granulation Toxic Vacuolation Dohle Bodies Evgeny Rods Platelet Estimate Hypogranular Platelets Giant Platelets Platelet Satelliting RBC Morphology Polychromasia Hypochromasia Poikilocytosis Basophilic Stippling Anisocytosis Microcytosis Macrocytosis Spherocytes Pappenheimer Bodies Sickle Cells Target Cells Tear Drop Cells Ovalocytes Stomatocytes [place] Bodies Echinocytes Acanthocytes (Spur) Rouleaux RBC Agglutinates Schistocytes Sezary Cell PT 11.4 INR 1.1 APTT 30.2 PTT Ratio 1.1 D-Dimer (0-500) ug/L FEU POC Sodium (135-144) mmol/L Sodium 142 POC Potassium (3.3-5.0) mmol/L Potassium 4.0 POC Chloride (101-112) mmol/L Chloride (98-107) mmol/L Carbon Dioxide (21-32) mmol/L POC Total CO2 (24-31) mmol/L Anion Gap POC Anion Gap (16-25) mmol/L POC BUN (7-18) mg/dl BUN (6-23) mg/dl Creatinine (0.6-1.4) mg/dl POC Creatinine (0.6-1.3) mg/dl Est Cr Clr Drug Dosing ml/min Est GFR ( Amer) ml/min Est GFR (Non-Af Amer) ml/min BUN/Creatinine Ratio (10-20) Glucose (70-99(Fasting)) mg/dl POC Glucose (other) (70-99) mg/dl Calcium (8.6-10.3) mg/dl POC Ioniz Calcium Juan (1.12-1.32) mmol/l Magnesium 2.1 Total Bilirubin (0.2-1.0) mg/dl AST 22 ALT (7-52) U/L Alkaline Phosphatase (34-104) U/L Troponin I High Sens (0-20) pg/ml B-Natriuretic Peptide (0-100) pg/ml Total Protein (6.0-8.3) gm/dl Albumin (3.4-5.0) gm/dl Globulin (2.5-4.0) gm/dl Albumin/Globulin Ratio (0.9-2) SARS-CoV-2, RNA, NAAT (NEGATIVE) Blood Parasites ID 08/22/22 Range/Units 10:26 WBC RBC Hgb POC Hgb (14.0-18.0) g/dl Hct POC Hct (42-52) % MCV MCH MCHC RDW Std Deviation RDW Coeff of Carolyn Plt Count MPV Immature Gran % (Auto) Neut % (Auto) Lymph % (Auto) [place] % (Auto) Eos % (Auto) Baso % (Auto) Neut # (Auto) Lymph # (Auto) [place] # (Auto) Eos # (Auto) Baso # (Auto) Immature Gran # (Auto) Absolute Nucleated RBC Nucleated RBC % (auto) Neutrophils % (Manual) Band Neutrophils % Lymphocytes % (Manual) Prolymphocyte % Reactive Lymphs % (Man) Monocytes % (Manual) Eosinophils % (Manual) Basophils % (Manual) Metamyelocytes % (Man) Myelocytes % (Man) Promyelocytes % (Man) Blast Cells % (Manual) Plasma Cell % (Manual) Other Cells % Nucleated RBC % Neutrophils # (Manual) Band Neutrophils # Total Absolute Neuts Lymphocytes # (Manual) Prolymphocyte # Reactive Lymphs # Total Abs Lymphocytes Monocytes # (Manual) Eosinophils # (Manual) Basophils # (Manual) Metamyelocytes # (Man) Myelocytes # (Manual) Promyelocytes # (Man) Blast Cells # (Man) Plasma Cell # (Manual) Other Cells # Nucleated RBCs # (Man) Hypersegmented Neuts Hyposegmented Neuts Hypogranular Neuts Large Granular Lymphs # Lrg Granular Lymphs Hairy Cells Smudge Cells Toxic Granulation Toxic Vacuolation Dohle Bodies Evgeny Rods Platelet Estimate Hypogranular Platelets Giant Platelets Platelet Satelliting RBC Morphology Polychromasia Hypochromasia Poikilocytosis Basophilic Stippling Anisocytosis Microcytosis Macrocytosis Spherocytes Pappenheimer Bodies Sickle Cells Target Cells Tear Drop Cells Ovalocytes Stomatocytes [place] Bodies Echinocytes Acanthocytes (Spur) Rouleaux RBC Agglutinates Schistocytes Sezary Cell PT INR APTT PTT Ratio D-Dimer 1080 H* (0-500) ug/L FEU POC Sodium (135-144) mmol/L Sodium POC Potassium (3.3-5.0) mmol/L Potassium POC Chloride (101-112) mmol/L Chloride (98-107) mmol/L Carbon Dioxide (21-32) mmol/L POC Total CO2 (24-31) mmol/L Anion Gap POC Anion Gap (16-25) mmol/L POC BUN (7-18) mg/dl BUN (6-23) mg/dl Creatinine (0.6-1.4) mg/dl POC Creatinine (0.6-1.3) mg/dl Est Cr Clr Drug Dosing ml/min Est GFR ( Amer) ml/min Est GFR (Non-Af Amer) ml/min BUN/Creatinine Ratio (10-20) Glucose (70-99(Fasting)) mg/dl POC Glucose (other) (70-99) mg/dl Calcium (8.6-10.3) mg/dl POC Ioniz Calcium Juan (1.12-1.32) mmol/l Magnesium Total Bilirubin (0.2-1.0) mg/dl AST ALT (7-52) U/L Alkaline Phosphatase (34-104) U/L Troponin I High Sens (0-20) pg/ml B-Natriuretic Peptide (0-100) pg/ml Total Protein (6.0-8.3) gm/dl Albumin (3.4-5.0) gm/dl Globulin (2.5-4.0) gm/dl Albumin/Globulin Ratio (0.9-2) SARS-CoV-2, RNA, NAAT (NEGATIVE) Blood Parasites ID Administered Medications Empagliflozin (Empagliflozin 25 Mg Tab) 25 mg PO DAILY WILD Stop: 09/21/22 15:26 Last Admin: 08/22/22 16:53 Dose: 25 mg Documented By: JAYNA Pantoprazole Sodium (Pantoprazole 40 Mg Tab) 40 mg PO DAILY WILD Stop: 09/21/22 15:26 Last Admin: 08/22/22 16:52 Dose: 40 mg Documented By: JAYNA Sertraline HCl (Sertraline Hcl 50 Mg Tablet) 150 mg PO DAILY WILD Stop: 09/21/22 15:26 Last Admin: 08/22/22 16:53 Dose: 150 mg Documented By: JAYNA Discontinued Medications Albuterol (Albut/Ipratrop 3mg/0.5mg Neb 3 Ml Vial) 3 ml INH NOW STA Stop: 08/22/22 09:25 Last Admin: 08/22/22 09:35 Dose: 3 ml Documented By: SANDY Apixaban (Apixaban 5 Mg Tablet) 5 mg PO ONE STA Stop: 08/22/22 12:11 Last Admin: 08/22/22 13:01 Dose: 5 mg Documented By: UTE Budesonide (Budesonide 0.5 Mg/2 Ml Vial (Pulmicort)) 0.5 mg NEB ONE STA Stop: 08/22/22 12:09 Last Admin: 08/22/22 13:19 Dose: 0.5 mg Documented By: LAI Formoterol Fumarate (Formoterol 20 Mcg/2 Ml Vial) 20 mcg NEB ONE STA Stop: 08/22/22 12:09 Last Admin: 08/22/22 13:20 Dose: 20 mcg Documented By: LAI Furosemide (Furosemide 40 Mg/4 Ml Vial) 40 mg IV ONE ONE Stop: 08/22/22 09:25 Last Admin: 08/22/22 09:36 Dose: 40 mg Documented By: SANDY Hydralazine HCl (Hydralazine Tab 50 Mg Tab) 50 mg PO NOW STA Stop: 08/22/22 12:08 Last Admin: 08/22/22 13:01 Dose: 50 mg Documented By: UTE Hydralazine HCl (Hydralazine Tab 50 Mg Tab) 100 mg PO QID WILD Stop: 09/21/22 15:26 Last Admin: 08/22/22 16:24 Dose: Not Given Documented By: JAYNA Ioversol (Optiray 320 500ml) 109 ml IV ONCE ONE Stop: 08/22/22 14:48 Last Admin: 08/22/22 14:47 Dose: 109 ml Documented By: EMELY Metoprolol Succinate (Metoprolol Succ 50mg Ext Rel Tab) 100 mg PO NOW STA Stop: 08/22/22 12:08 Last Admin: 08/22/22 13:01 Dose: 100 mg Documented By: UTE Tamsulosin HCl (Tamsulosin Hcl 0.4 Mg Cap) 0.4 mg PO NOW STA Stop: 08/22/22 12:08 Last Admin: 08/22/22 13:01 Dose: 0.4 mg Documented By: UTE Imaging Data Radiologist's Impression: Chest X-Ray 08/22/22 09:24 XR chest 1V portable CLINICAL HISTORY: Dyspnea TECHNIQUE: Single frontal radiograph of the chest was obtained. Comparison: Comparison is made to chest radiograph 08/04/2022 FINDINGS: No lines and tubes are seen. Cardiomegaly is noted. The aortic arch is gloria cified. Lungs are underinflated but clear. No evidence of pleural effusion or pneumothorax. IMPRESSION: No acute chest disease. ACT 112: Negative or not required by law. Electronically signed by: Daniel Mathur M.D. 08/22/2022 10:02 AM Discharge Plan Visit Data Chief Complaint: Shortness of Breath/Dyspnea Stated Complaint: SOB ED Provider: Demarcus Hong Discharge Problem: Acute exacerbation of CHF (congestive heart failure), Wheezing, Elevated brain natriuretic peptide (BNP) level Patient Disposition: Admitted As Inpatient Discharge Instructions Interventions: ED Discharge Assessment Last Done: 08/22/22 15:24
[2022-08-22] MEDS ORDERED: ALBUT/IPRATROP 3MG/0.5MG NEB 3 ML VIAL INH STA (09:24)
[2022-08-22] MEDS ORDERED: FUROSEMIDE 40 MG/4 ML VIAL IV ONE (09:24)
[2022-08-22 09:48] LABS: iSTAT Creatinine 2.1 mg/dl (0.6-1.3); iSTAT Ionized Calcium 1.13 mmol/l (1.12-1.32); iSTAT Potassium 4.8 mmol/L (3.3-5.0)
--- NOTE | 2022-08-22 10:03 | XRay Report ---
XR chest 1V portable CLINICAL HISTORY: Dyspnea TECHNIQUE: Single frontal radiograph of the chest was obtained. Comparison: Comparison is made to chest radiograph 08/04/2022 FINDINGS: No lines and tubes are seen. Cardiomegaly is noted. The aortic arch is calcified. Lungs are underinfl ated but clear. No evidence of pleural effusion or pneumothorax. IMPRESSION: No acute chest disease. ACT 112: Negative or not required by law. Electronically signed by: Daniel Mathur M.D. 08/22/2022 10:02 AM
[2022-08-22 10:19] LABS: Alanine Aminotransferase 15 U/L (7-52); Albumin Globulin Ratio 1.3 (0.9-2); Alkaline Phosphatase 79 U/L (34-104); BUN Creatinine Ratio 17.6 (10-20); Bilirubin,Total 0.7 mg/dl (0.2-1.0); Blood Urea Nitrogen 35 mg/dl (6-23); Calcium 9.3 mg/dl (8.6-10.3); Carbon Dioxide 27 mmol/L (21-32); Chloride 106 mmol/L (98-107); Creatinine Clr Calc Pharmacy 35.6 ml/min; Est GFR (African American) 35.9 ml/min; Globulin 3.2 gm/dl (2.5-4.0); Glucose 78 mg/dl (70-99(Fasting)); Total Protein 7.2 gm/dl (6.0-8.3)
[2022-08-22 10:49] LABS: Basophils # (auto) 0.11 K/uL (0-0.2); Basophils % (auto) 0.9 %; Eosinophils # (auto) 0.07 K/uL (0-0.50); Eosinophils % (auto) 0.6 %; Hematocrit (blood only) 48.7 % (42.0-52.0); Hemoglobin 15.8 g/dl (14.0-18.0); Immature Granulocytes # (auto) 0.04 K/uL (0.01-0.20); Immature Granulocytes % (auto) 0.3 %; Lymphocytes # (auto) 1.11 K/uL (1.2-3.4); Lymphocytes % (auto) 9.3 %; Mean Corpuscular Hemoglobin 28.4 pg (25.0-34.0); Mean Corpuscular Hgb Conc 32.4 g/dL (32.0-36.0); Mean Corpuscular Volume 87.4 fL (80.0-100.0); Mean Platelet Volume 9.4 fL (9.4-12.4); Monocytes # (auto) 1.07 K/uL (0.11-0.59); Monocytes % (auto) 8.9 %; Neutrophils # (auto) 9.56 K/uL (1.40-6.50); Platelet Count 254 K/uL (130-400); RDW Coefficient of Variation 15.7 % (11.5-14.5); Red Blood Count 5.57 M/uL (4.70-6.10); White Blood Count 11.96 K/ul (4.8-10.8)
[2022-08-22 11:05] LABS: Magnesium 2.1 mg/dl (1.7-2.4)
[2022-08-22 11:31] LABS: INR 1.1 (0.9-1.1); Partial Thromboplastin Ratio 1.1; Partial Thromboplastin Time 30.2 Seconds (21.0-31.0); Prothrombin Time 11.4 Seconds (9.0-12.0)
--- NOTE | 2022-08-22 12:06 | History & Physical Report ---
Date of Service August 22, 2022 Assessment & Plan (1) Shortness of breath: Plan: Suspect multifactorial with multiple chronic medical conditions making him short of breath. Worse last 2 weeks following back pain ?reduced inspiratory effort. Nasal congestion suspicious of viral process - [employer] ordered CXR normal D-dimer - on Eliquis but elevated BMI may not be effective. Given we only wish to give him contrast once with his renal function will await this to order CTs. If elevated will get CT for PE in addition to below. (2) Back pain: Plan: ?associated right foot drop noticed last 2 weeks - ?L5 radiculopathy Pain on palpation although very difficult to exam patient in bed around L1 on palpation of back Will get CT lumbar spine w/o contrast - awaiting d dimer to order all scans together (3) Abdominal distension: Plan: Noted to be softly distended on prior H&P, currently appears more tense and getting worse per family report CT A/P with IV contrast to be ordered pending d dimer result (4) COPD (chronic obstructive pulmonary disease): Plan: No wheezing to suggest acute exacerbation however he has had some improvement with duonebs. Consider systemic steroids if not improving but will start with duonebs QID, formoterol NEB BID and budesonide NEB BID (5) Restrictive lung disease: Plan: Suspected obesity hypoventilation (6) Chronic diastolic congestive heart failure, NYHA class 2: Plan: Lasix 40mg IV daily, monitor Cr as suspect he is relatively euvolemic without acute exacerbation Monitor I&Os, daily weights (7) Tracheomalacia: (8) Atrial fibrillation: Plan: Permanent Monitor rates on telemetry Anticoagulation with Eliquis Continue metoprolol (9) CAD (coronary artery disease): Plan: Continue clopidogrel, apixaban, metoprolol (10) Hypertension: Plan: Continue furosemide 40mg IV daily although unclear if there is a really fluid component to this (11) Diabetes mellitus type 2, uncontrolled: Plan: Combination of Tresiba and 70/30 as outpatient HbA1C 9.8 in Jun, no need to repeat this Suspect current low glucose as a result of him eating and drinking less Consult pharmacy for glycemic control (12) Depression: Plan: Continue sertraline Plan VTE Porophyalxis - Eliquis Diet - T2DM, Low Na, heart healthy Disposition - observation status to med/tele Admission and Anticipated Discharge Date Admission Date: August 22, 2022 History of Present Illness Chief Complaint: Shortness of breath and back pain Primary Care Provider: Bon Macias MD Ramses Petty is a 77 year old male who presents to the ER with shortness of breath. He reports this has been going on for the last 2 weeks since he had a sudden onset back pain. He had an outpatient lumbar spine XR for this which showed no fracture. Since that time he has been eating less and becoming progressively more short of breath on exertion. No fever, chills, sinus pain or sore throat. Nasal congestion present for the last 2 days. He has a non- productive cough but no worse than usual. He does not weight himself therefore unclear if his weight has gone up but he does reports his abdominal distention is much worse than usual and bilateral leg edema has increased. No BM for the last 2 days. No nausea, vomiting, melena or hematochezia. He was prescribed a Medrol Dosepak for his back pain yesterday by his PCP but reports he has not taken any of this yet. Allergies Allergy/AdvReac Type Severity Reaction Status Date / Time Penicillins Allergy Severe FACIAL Verified 08/22/22 11:06 SWELLING AND RASH amoxicillin Allergy Intermediate RASH Verified 08/22/22 11:06 clavulanic acid Allergy Intermediate RASH Verified 08/22/22 11:06 cholestyramine Allergy Unknown per nephro Verified 08/22/22 11:06 note niacin Allergy Unknown per nephro Verified 08/22/22 11:06 note phenylephrine Allergy Unknown per nephro Verified 08/22/22 11:06 note Hroiqyt-FHZ-BdH Reductase Allergy Unknown JOINT Verified 08/22/22 11:06 Inhibitor STIFFNESS [Nymudpa-Kfq-Pee Reductase AND PAIN Inhibitor] azithromycin Allergy PER NEPHRO Verified 08/22/22 11:06 NOTE Home Medications Medication Instructions Recorded Confirmed Type dorzolamide 2 % eye drops (Trusopt) 1 drp OPB BID 03/13/18 08/22/22 History glucosamine sulfate 500 mg tablet 2 tabs PO QAM 03/13/18 08/22/22 History (Glucosamine) latanoprost 0.005 % eye drops 1 drp OPB PM 03/13/18 08/22/22 History (Xalatan) magnesium chloride 64 mg 64 mg PO QAM 03/13/18 08/22/22 History (magnesium chloride) tablet,delayed release (Mag 64) nitroglycerin 0.4 mg sublingual 0.4 mg sublingual UD PRN Chest 03/12/19 08/22/22 Rx tablet (Nitrostat) Pain #1 btl OneTouch UltraSoft Lancets #400 ea 05/23/19 08/08/22 Rx (lancets) insulin syringe-needle U-100 0.5 #300 ea 08/13/19 08/08/22 Rx mL 31 gauge x 5/16" (BD Insulin Syringe Ultra-Fine) ipratropium 0.5 mg-albuterol 3 mg 3 ml inhalation Q8H PRN shortness 10/04/20 08/22/22 Rx (2.5 mg base)/3 mL nebulization of breath or wheezing #180 mL soln nebulizers (Aeroneb Go Nebulizer) #1 ea 10/04/20 08/08/22 Rx budesonide 0.25 mg/2 mL suspension 0.25 mg inhalation BID PRN 09/28/21 08/22/22 History for nebulization Shortness Of Breath Or Wheezing albuterol sulfate 90 mcg/actuation 2 puff inhalation DAILY PRN 12/29/21 08/22/22 Rx aerosol inhaler (Ventolin HFA) shortness of breath or wheezing #8.5 grams metoprolol succinate 100 mg 100 mg PO QAM #90 tabs 01/02/22 08/22/22 Rx tablet,extended release 24 hr BD Ultra-Fine Short Pen Needle 31 #100 ea 01/17/22 08/08/22 Rx gauge x 5/16" (pen needle, diabetic) clopidogrel 75 mg tablet 75 mg PO Q2D #45 tabs 01/17/22 08/22/22 Rx hydralazine 50 mg tablet 100 mg PO QID 90 days #720 tabs 01/17/22 08/22/22 Rx blood sugar diagnostic (OneTouch #400 ea 01/23/22 08/08/22 Rx Ultra Test strips) insulin degludec 100 unit/mL (3 22 unit (0.22 mL) subcut QPM #15 mL 03/23/22 08/22/22 Rx mL) subcutaneous pen (Tresiba FlexTouch U-100 insulin) potassium chloride 20 mEq 20 meq PO QAM PRN Muscle Cramps 03/30/22 08/22/22 Rx tablet,extended release from Lasix #60 tabs furosemide 40 mg tablet 40 mg PO .COMPLEX Edema #240 tabs 04/13/22 08/22/22 Rx fluticasone fur. 100 mcg-umeclid 1 inh inhalation DAILY #60 ea 04/24/22 08/22/22 Rx 62.5 mcg-vilant 25 mcg inhalat.powder (Trelegy Ellipta) apixaban 5 mg tablet (Eliquis) 5 mg PO BID #180 tabs 04/28/22 08/22/22 Rx empagliflozin 25 mg tablet 25 mg PO DAILY #90 tabs 05/04/22 08/22/22 Rx finasteride 5 mg tablet 5 mg PO DAILY #90 tabs 05/09/22 08/22/22 Rx tamsulosin 0.4 mg capsule 0.4 mg PO DAILY #90 caps 05/09/22 08/22/22 Rx donepezil 10 mg tablet 10 mg PO QAM #90 tabs 05/29/22 08/22/22 Rx pantoprazole 40 mg tablet,delayed 40 mg PO DAILY #90 tabs 06/05/22 08/22/22 Rx release vibegron 75 mg tablet (Gemtesa) 75 mg PO DAILY #30 tabs 06/07/22 08/22/22 Rx Novolog Mix 70-30 FlexPen U-100 See Rx Instructions .Route 06/28/22 08/22/22 Rx Insulin 100 unit/mL subcutaneous .COMPLEX 90 days #45 mL pen (insulin asp prt-insulin aspart) insulin aspart U-100 100 unit/mL See Rx Instructions subcut 08/04/22 08/22/22 Rx (3 mL) subcutaneous pen (Novolog .COMPLEX #15 mL FlexPen U-100 Insulin aspart) cholecalciferol (vitamin D3) 125 125 mcg PO DAILY 08/08/22 08/22/22 History mcg (5,000 unit) capsule levothyroxine 100 mcg tablet 100 mcg PO DAILY 08/08/22 08/22/22 History sertraline 100 mg tablet 150 mg PO DAILY 90 days #135 tabs 08/14/22 08/22/22 Rx methylprednisolone 4 mg tablets in See Rx Instructions .Route 08/21/22 08/22/22 Rx a dose pack (Medrol (Andrea)) .COMPLEX #21 ea evolocumab 140 mg/mL subcutaneous 140 mg subcut WK 08/22/22 08/22/22 History pen injector (Genoveva Bello) Past Med/Surg History Medical History Acute diastolic CHF (congestive heart failure) Alzheimer disease on donepezil Anticoagulant long-term use Atrial fibrillation metoprolol/apixaban Bladder cancer 2015--sx Bladder cancer BPH (benign prostatic hyperplasia) BPH with obstruction/lower urinary tract symptoms CAD (coronary artery disease) follows with Dr. Motley Cancer of skin of back removed Cancer of skin of left ear removed CHF (congestive heart failure) Chronic kidney disease, stage III (moderate) follows with Dr. Joseph COPD (chronic obstructive pulmonary disease) Degenerative disc disease Depression (Unknown) Diabetes mellitus, type II, insulin dependent Diabetic nephropathy Diabetic peripheral neuropathy Diabetic retinopathy, nonproliferative, mild Diabetic ulcer of toe of left foot WALL (dyspnea on exertion) Dysphagia causing pulmonary aspiration with swallowing GERD (gastroesophageal reflux disease) Glaucoma Hearing deficit History of colon polyps History of restrictive lung disease Hyperlipidemia Hypertension Leaking of urine On home O2 2 LPM PRN Surgical History H/O heart artery stent (2015) 2012 x 1 2015 x 3 2017 x 1 ( showed severe 99 % mid RCA in stent restenoses which was treated with drug-eluting stent) History of bilateral cataract extraction History of bladder surgery 2014 bladder tumor removal @ [facility] History of cardiac cath x3--2011, 2014, 2017 @ [facility] History of colonoscopy History of skin surgery removal of basal cell carcinoma from L side of face, 08/24/[address] Velazquez History of tonsillectomy and adenoidectomy Family History Mother Family history of diabetes mellitus COPD (chronic obstructive pulmonary disease) Lung cancer Father Family history of diabetes mellitus Acute appendicitis Brother Hx of CABG Myocardial infarction Sister Heart disease Myocardial infarction Other Coronary heart disease Denies family history of Ovarian cancer Prostate cancer Kidney disease Breast cancer Colorectal cancer Social History Smoking Status: Former smoker Tobacco Type: Cigarettes Age Started Using Tobacco: 14; Age Quit Using Tobacco: 29; packs per day: 1; Second Hand Exposure: No; Hx Alcohol Use: No Hx Substance Use: No Preferred Language: Montene[place]in Communication Ability: Impaired Visual Impairment: No Limitations Hearing Ability: Hard of Hearing [place] Required: No Beliefs That Will Affect Care: None marital status: Current Living Situation: Spouse current occupational status: retired 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 Feels Safe at Home: Yes Safety Concerns: Feels Safe At This Time Childhood Exposure to Second-Hand Smoke: Yes caffeine: Yes Dental Care, Regularly: No Physical Activity Frequency: Does not Exercise Seatbelt Use: always Sunscreen Use: No Assistive Devices: Cane and Walker Review of Systems Review of Systems: All systems reviewed & are unremarkable except as noted in HPI & below Physical Exam Constitutional: WD/WN, vitals as above Eyes: PERRL, conjunctivae normal, anicteric sclerae ENMT: external ear and nose normal, oropharynx normal Mouth: oral mucous membranes not dry Neck: trachea midline, no thyromegaly Respiratory: + labored breathing, + uses accessory muscles and able to speak in complete sentences; + abnormal respiratory effort, not tachypneic, expiratory phase not prolonged, no audible wheezes and no stridor Auscultation: + diminished lung sounds (throughout); no crackles and no wheezes Cardiovascular: Rate/Rhythm: regular rate and + irregularly irregular Vessels: no JVD Extremities: normal capillary refill and + pedal edema (2+ to thighs equal b/l); no calf tenderness Gastrointestinal (Abdomen): normal bowel sounds, soft, nontender, no hepatosplenomegaly Musculoskeletal: no cyanosis or clubbing, extremities motor strength 5/5 Skin: no rashes, warm and dry Neurologic: moves all extremities and awake; not confused Psychiatric: A+Ox3, euthymic affect Genitourinary: no CVA tenderness Results & Data Results & Data Vital Signs (Past 12 Hours) Vital Signs Temp Pulse Resp BP Pulse Ox O2 Del Method 08/22/22 11:30 92 H 23 91 Room Air 08/22/22 11:30 139/89 08/22/22 11:00 95 H 22 93 08/22/22 10:30 106 H 21 08/22/22 10:00 101 H 20 93 08/22/22 10:00 150/85 H 08/22/22 09:52 92 H 23 96 08/22/22 09:52 168/79 H 08/22/22 09:31 95 H 21 92 08/22/22 09:32 90 08/22/22 09:28 95 Room Air 08/22/22 09:24 94 Room Air 08/22/22 09:17 37 C 94 H 18 158/88 H 94 Room Air Diagnostic Findings XR chest 1V portable CLINICAL HISTORY: Dyspnea TECHNIQUE: Single frontal radiograph of the chest was obtained. Comparison: Comparison is made to chest radiograph 08/04/2022 FINDINGS: No lines and tubes are seen. Cardiomegaly is noted. The aortic arch is calcified. Lungs are underinflated but clear. No evidence of pleural effusion or pneumothorax. IMPRESSION: No acute chest disease. Medications Administered ER medications Given: Duoneb 3ml Lasix 40mg IV ECG Rate (beats per minute): 97 Rhythm: junctional Findings: + PVC Comparison ECG Date: from (August 04, 2022) Change: the following changes noted (junctional rhythm replaced a. fib) Code Status & VTE Plan Code Status Full VTE Prophylaxis Plan VTE Prophylaxis will be ordered: Yes PG Care Time/CCT Total # of Minutes Spent Total Time Spent with Patient: Total time spent is greater than 50% in coordination of care (as documented) at patient's floor/unit and/or counseling patient: Coding Level of Care Code 47924 INT INP/OBS CARE 375MIN Diagnoses Shortness of breath R06.02 Back pain M54.9 Abdominal distension R14.0 COPD (chronic obstructive pulmonary disease) J44.9 Restrictive lung disease J98.4 Chronic diastolic congestive heart failure, NYHA class 2 I50.32 Tracheomalacia J39.8 Atrial fibrillation I48.91 CAD (coronary artery disease) I25.10 Associated angina: without angina Coronary Disease-Associated Artery/Lesion type: [place] artery [place] vs. transplanted heart: [place] heart Hypertension I10 Hypertension type: essential hypertension Diabetes mellitus type 2, uncontrolled Depression F32.9 (9) CAD (coronary artery disease) Associated angina: without angina Coronary Disease-Associated Artery/Lesion type: [place] artery [place] vs. transplanted heart: [place] heart Qualified C ode(s): I25.10 - Atherosclerotic heart disease of [place] coronary artery without angina pectoris (10) Hypertension Hypertension type: essential hypertension Qualified Code(s): I10 - Essential (primary) hypertension
[2022-08-22] MEDS ORDERED: TAMSULOSIN HCL 0.4 MG CAP PO STA (12:07)
[2022-08-22] MEDS ORDERED: hydrALAZINE TAB 50 MG TAB PO STA (12:07)
[2022-08-22] MEDS ORDERED: METOPROLOL SUCC 50MG EXT REL TAB PO STA (12:07)
[2022-08-22] MEDS ORDERED: BUDESONIDE 0.5 MG/2 ML VIAL (PULMICORT) NEB STA (12:08)
[2022-08-22] MEDS ORDERED: FORMOTEROL 20 MCG/2 ML VIAL NEB STA (12:08)
[2022-08-22] MEDS ORDERED: APIXABAN 5 MG TABLET PO STA (12:10)
[2022-08-22 13:45] LABS: D Dimer 1080 ug/L FEU (0-500)
[2022-08-22 14:08] LABS: Adenovirus PCR Not Detected (NotDetected); Bordetella parapertussis PCR Not Detected (NotDetected); Bordetella pertussis PCR Not Detected (NotDetected); Chlamydia pneumoniae PCR Not Detected (NotDetected); Coronavirus 229E PCR Not Detected (NotDetected); Coronavirus CoV-2 (COVID19)PCR Not Detected (NotDetected); Coronavirus HKU1 PCR Not Detected (NotDetected); Coronavirus NL63 PCR Not Detected (NotDetected); Coronavirus OC43PCR Not Detected (NotDetected); Human Metapneumovirus PCR Not Detected (NotDetected); Influenza A PCR Not Detected (NotDetected); Influenza B PCR Not Detected (NotDetected); Mycoplasma pneumoniae PCR Not Detected (NotDetected); Parainfluenza Virus 1 PCR Not Detected (NotDetected); Parainfluenza Virus 2 PCR Not Detected (NotDetected); Parainfluenza Virus 3 PCR Not Detected (NotDetected); Parainfluenza Virus 4 PCR Not Detected (NotDetected); Respiratory Syncytial VirusPCR Not Detected (NotDetected); Rhinovirus/Enterovirus PCR Not Detected (NotDetected)
[2022-08-22] MEDS ORDERED: OPTIRAY 320 500ml IV ONE (14:47)
--- NOTE | 2022-08-22 15:05 | CT Scan Report ---
CT ANGIOGRAM OF THE CHEST CLINICAL HISTORY: Dyspnea. COMPARISON STUDY: Chest x-ray dated 08/22/2022. Chest CT dated 08/18/2020. TECHNIQUE: Following the IV administration of 109 cc of Optiray 320, CT angiogram of the chest was pe rformed from the upper abdomen to the thoracic inlet utilizing the pulmonary embolus protocol. Images are reviewed in the axial, sagittal, and coronal planes. 3-D MIPS images are created and assessed. I V contrast was administered without complication. A dose lowering technique was utilized adhering to the principles of ALARA. CT DOSE: 1996.39 mGy.cm FINDINGS: Thyroid: Imaged portions of the thyroid gland are normal in size and attenuation. Thoracic aorta: There is mild atherosclerotic calcification of the thoracic aorta, which is normal in caliber and demonstrates standard 3-vessel arch anatomy. No dissection is seen. Pulmonary vasculature: The pulmonary trunk is normal in caliber. There are no filling defects identif ied in main, lobar, or segmental pulmonary branches to suggest pulmonary embolus. Heart: The heart is enlarged noting trace pericardial effusion. The coronary arteries are calcified. Lungs and pleural spaces: Evaluation of the lung parenchyma is degraded by motion artifact. There are trace pleural effusions with dependent atelectasis. No airspace consolidation is seen typical for pn [place]. Minimal secretions are noted in the trachea. Mediastinum: There is no mediastinal lymphadenopathy. Serenity: Clear. Axillae: There is no axillary lymphadenopathy. Upper abdomen: A small hiatal hernia is noted. A 1.1 cm exophytic cyst arises from the upper pole of the right kidney. Partially visualized upper abdominal viscera is otherwise within normal limits. Skeletal structures: The skeletal structures are osteopenic. No lytic or blastic bony lesions are see n. There is chronic posterior neck deformity of the sternum. Degenerative change is noted in the shou lders and spine. There are subacute-appearing right-sided rib fractures (ribs 7, 9, and 10). Addition al rib fractures are chronic/healed. IMPRESSION: 1. There is no evidence of pulmonary embolus in the main, lobar, or segmental pulmonary arteries. 2. Cardiomegaly and trace pleural effusions. 3. There is no airspace consolidation typical for pneumonia. 4. There are subacute-appearing right-sided rib fractures. Correlate for point tenderness. 5 Additional findings as above. ACT 112: Negative or not required by law. Electronically signed by: Barney Evangelista M.D. 08/22/2022 3:04 PM
--- NOTE | 2022-08-22 15:14 | CT Scan Report ---
CT abd pelvis IV con only CLINICAL HISTORY: tense abdominal distension, generalized abd pain TECHNIQUE: Helical axial images of the abdomen and pelvis were obtained and displayed. Automated dose lowering techniques and/or adjustment according to patient size were utilized for this exam. This e xam was performed with intravenous contrast. COMPARISON: Comparison is made to CT abdomen pelvis 03/13/2018 FINDINGS: Lower chest: Cardiomegaly is partially visualized. Moderate atherosclerotic disease is seen. Liver: Unremarkable. No focal lesions are seen. Gallbladder and biliary tree: No calcified gallstones. Normal caliber wall. No intra- or extrahepatic biliary ductal dilation. Pancreas: Unremarkable, no focal lesions. Spleen: Unremarkable. Adrenals: Unremarkable. Kidneys and ureters: Renal cysts are seen. Bladder: Unremarkable. Reproductive organs: Unremarkable. Bowel: The appendix is normal. Lymph nodes Retroperitoneal: Unremarkable. Pelvic: Unremarkable. Mesenteric: Unremarkable. Peritoneum: Normal. Vessels: Atherosclerotic calcifications are seen. Abdominal wall: Unremarkable. Bones: Degenerative changes in the visualized spine. Grade 1 anterolisthesis is seen at L5-S1 with bi lateral pars defects. IMPRESSION: No acute abnormalities to explain abdominal pain. In particular no evidence of bowel obstruction. ACT 112: Negative or not required by law. Electronically signed by: Daniel Mathur M.D. 08/22/2022 3:12 PM
--- NOTE | 2022-08-22 15:16 | CT Scan Report ---
CT lumbar spine w con HISTORY: 77 years-old Male L1 pain 2 weeks ?#, Right L5 radicular (foot drop) acute subacute low dexter k pain with lower extremity radicular symptoms COMPARISON: CT abdomen and pelvis of same day, CT lumbar spine 03/13/2018, lumbar spine radiographs , chest CT 08/18/2020. TECHNIQUE: Multiple axial CT images of the lumbar spine were obtained following the intravenous admin istration of 109 Optiray 320 IV contrast. A dose lowering technique was used consistent with the prin cipals of EMEKA. FINDINGS: Unchanged 10 mm anterolisthesis L5 on S1 secondary to chronic L5 pars defect. Demineralized appearanc e of the bones. Moderate disc space narrowing with spondylitic spurring and vascular disc phenomena r edemonstrated L5-S1. Mild to moderate multilevel facet arthrosis. Anterior bridging osteophytes at T1 1-T12. Acute to subacute appearing 30% central compression deformity of the L1 vertebral body with 3 mm retropulsion is new from 2018. Mild associated paravertebral edema. Minimal superior endplate comp ression at T12 without retropulsion is likely chronic. Limited evaluation of the central canal and ne ural foramina by CT technique. T12-L1: No central canal or neural foraminal narrowing. L1-L2: The central canal and right neural foramen are patent. Mild left neural foraminal narrowing. L2-L3: Small posterior annular disc bulge with ligamentum flavum thickening and mild to moderate face t arthrosis. Mild central canal and bilateral neural foraminal narrowing. L3-L4: Small posterior annular disc bulge with ligamentum flavum thickening and mild to moderate face t arthrosis. Central canal is patent. Mild bilateral neural foraminal narrowing. L4-L5: Ligament of flavum thickening with moderate facet arthrosis. The central canal is patent. Mild bilateral foraminal narrowing. L5-S1: Posterior disc space uncovering with chronic anterolisthesis. The central canal is patent. Mil d to moderate right with moderate left neural foraminal narrowing. IMPRESSION: 1. Acute to subacute L1 compression deformity with 3 mm retropulsion. No significant central canal st enosis. 2. Chronic L5 pars defects with unchanged anterolisthesis L5 on S1. 3. Multilevel degenerative changes as above. ACT 112: Negative or not required by law. The above report was generated using voice recognition software. It may contain grammatical, syntax o r spelling errors. Electronically signed by: Richi Hernandez M.D. 08/22/2022 3:14 PM
[2022-08-22] MEDS ORDERED: hydrALAZINE TAB 50 MG TAB PO SCH (15:27)
[2022-08-22] MEDS ORDERED: PHARMACY GLYCEMIC MGMT CONSULT PRN (15:49)
[2022-08-22] MEDS ORDERED: GLUCOSE 40% GEL 15 GM TUBE PO PRN (15:49)
[2022-08-22] MEDS ORDERED: CARBOHYDRATES FOR HYPOGLYCEMIA PO PRN (15:49)
[2022-08-22] MEDS ORDERED: GLUCOSE 10 TAB/TUBE PO PRN (15:49)
[2022-08-22] MEDS ORDERED: DEXTROSE 50% 50 ML SYRINGE IV PRN (15:49)
[2022-08-22] MEDS ORDERED: GLUCAGON FOR INJ 1 MG VIAL SQ PRN (15:49)
[2022-08-22] MEDS: PANTOprazole 40 MG TAB PO SCH (16:52)
[2022-08-22] MEDS: SERTRALINE HCL 50 MG TABLET PO SCH (16:53)
[2022-08-22] MEDS: EMPAGLIFLOZIN 25 MG TAB PO SCH (16:53)
[2022-08-22] MEDS: INSULIN ASPART PER UNIT CHARGE SC SCH ×2 (17:20→20:35)
[2022-08-22] MEDS: BUDESONIDE 0.5 MG/2 ML VIAL (PULMICORT) NEB SCH (19:46)
[2022-08-22] MEDS: FORMOTEROL 20 MCG/2 ML VIAL NEB SCH (19:47)
[2022-08-22] MEDS: ALBUT/IPRATROP 3MG/0.5MG NEB 3 ML VIAL NEB SCH (19:47)
[2022-08-22] MEDS: LATANOPROST 0.005% OP SOLN 2.5 ML BTL OPB SCH (20:40)
[2022-08-22] MEDS: DORZOLAMIDE HCL 2% OPH SOLN 10 ML BTL OPB SCH (20:40)
[2022-08-22] MEDS: APIXABAN 5 MG TABLET PO SCH (20:41)
[2022-08-22] MEDS ORDERED: LANTUS PER UNIT CHARGE SQ SCH (21:30)
[2022-08-23] MEDS: LEVOTHYROXINE SODIUM 100 MCG TABLET PO SCH (06:17)
[2022-08-23 06:21] LABS: Basophils % (auto) 1.1 %; Eosinophils # (auto) 0.13 K/uL (0-0.50); Eosinophils % (auto) 1.4 %; Hemoglobin 15.1 g/dl (14.0-18.0); Immature Granulocytes # (auto) 0.05 K/uL (0.01-0.20); Immature Granulocytes % (auto) 0.6 %; Lymphocytes # (auto) 0.73 K/uL (1.2-3.4); Mean Corpuscular Hemoglobin 28.8 pg (25.0-34.0); Mean Corpuscular Hgb Conc 33.6 g/dL (32.0-36.0); Mean Corpuscular Volume 85.7 fL (80.0-100.0); Mean Platelet Volume 9.6 fL (9.4-12.4); Monocytes # (auto) 0.86 K/uL (0.11-0.59); Monocytes % (auto) 9.5 %; Neutrophils % (auto) 79.4 %; Platelet Count 241 K/uL (130-400); RDW Coefficient of Variation 15.4 % (11.5-14.5); RDW Standard Deviation 47.8 fL (36.4-46.3); Red Blood Count 5.25 M/uL (4.70-6.10); White Blood Count 9.07 K/ul (4.8-10.8)
[2022-08-23 06:25] LABS: BUN Creatinine Ratio 17.2 (10-20); Creatinine Clr Calc Pharmacy 30.1 ml/min; Est GFR (African American) 29.9 ml/min; Est GFR (Non-African American) 25.8 ml/min; Potassium 3.7 mmol/L (3.5-5.1)
[2022-08-23] MEDS: FORMOTEROL 20 MCG/2 ML VIAL NEB SCH ×2 (07:19→19:21)
[2022-08-23] MEDS: BUDESONIDE 0.5 MG/2 ML VIAL (PULMICORT) NEB SCH ×2 (07:19→19:21)
[2022-08-23] MEDS: ALBUT/IPRATROP 3MG/0.5MG NEB 3 ML VIAL NEB SCH ×4 (07:19→19:21)
--- NOTE | 2022-08-23 07:24 | Communication Note ---
Date of Service: August 22, 2022 CT Chest / abdomen / pelvis and lumbar spine reviewed. Suspect most likely shortness of breath due to back pain causing reduced immobility and difficulty t aking large breaths. Will continue with Lasix 40mg IV but unclear there is a big fluid component given BNP similar to previous when he was dry and no particular pulmonary edema. HTN - hydralazine initially cancelled due to relatively low BP however given this has now increased will reinstate at half his usual dose
[2022-08-23] MEDS: DORZOLAMIDE HCL 2% OPH SOLN 10 ML BTL OPB SCH ×2 (07:50→21:11)
[2022-08-23] MEDS: METOPROLOL SUCC 50MG EXT REL TAB PO SCH (07:50)
[2022-08-23] MEDS: GLUCOSAMINE SULFATE 500 MG CAP PO SCH (07:51)
[2022-08-23] MEDS: EMPAGLIFLOZIN 25 MG TAB PO SCH (07:51)
[2022-08-23] MEDS: DONEPEZIL HCL 10 MG TAB PO SCH (07:51)
[2022-08-23] MEDS: PANTOprazole 40 MG TAB PO SCH (07:51)
[2022-08-23] MEDS: FINASTERIDE 5 MG TAB PO SCH (07:51)
[2022-08-23] MEDS: APIXABAN 5 MG TABLET PO SCH ×2 (07:51→21:11)
[2022-08-23] MEDS: hydrALAZINE TAB 50 MG TAB PO SCH ×4 (07:51→21:12)
[2022-08-23] MEDS: SERTRALINE HCL 50 MG TABLET PO SCH (07:51)
[2022-08-23] MEDS: CHOLECALCIFEROL 5,000 UNITS 125 MCG TAB PO SCH (07:51)
[2022-08-23] MEDS: TAMSULOSIN HCL 0.4 MG CAP PO SCH (07:52)
[2022-08-23] MEDS: MAGNESIUM CHLORIDE W/CALCIUM 64MG DELAYED REL TAB PO SCH (07:52)
[2022-08-23] MEDS: INSULIN ASPART PER UNIT CHARGE SC SCH ×4 (07:54→20:25)
[2022-08-23] MEDS ORDERED: FUROSEMIDE 40 MG/4 ML VIAL IV SCH (09:00)
--- NOTE | 2022-08-23 10:04 | Pharmacy Report ---
Pharmacy Glycemic Short Note 2 - Date of Service August 23, 2022 - Glycemic Short BSG Results (Last 24 hours): 08/22/22 08/22/22 08/22/22 09:30 09:34 16:23 Glucose 78 POC Glucose 92 POC Glucose (other) 81 08/22/22 08/23/22 08/23/22 20:30 05:45 07:17 Glucose 149 H POC Glucose 96 141 H POC Glucose (other) OUTPATIENT ANTIDIABETIC REGIMEN: * Tresiba 22 uints QPM * Novolog mix 70/30 70 units with breakfast, 60 units with dinner * Novolog SS * Jardiance 25mg * HbA1c 9.8% 06/19/22 ASSESSMENT: * Mr. Petty is a 77 YOM admitted with shortness of breath, history of T2DM. Pharmacy is consulted for glycemic management while inpatient. * No glycemic stressors noted at this time * Patient has a complex home regimen with multiple SQ insulins. Estimated conversion of Novolin 70/30 to Lantus is 49 units with breakfast and 42 units with dinner. * Based on previous admissions with increased stressors, the patient's basal regimen was started conservatively substituting Tresiba home dose with Lantus 22 units. Continue with Lantus 22 units QPM * Will not add add in additional home basal from Novolog mix due to concerning lunch time low of 74. Estimated conversion of Novolin 70/30 to basal Lantus is 49 units with breakfast and 42 units with dinner. * Started Novolog at CF 20 CR 5 (successful regimen on previous admissions). Concern for overcorrection at breakfast, Novolog parameters loosened to a weight based stress of 2 with a CF of 25 and a CR of 8 PLAN FOR INPATIENT GLYCEMIC CONTROL: * Hold outpatient oral diabetes medications, but continue Jardiance 25mg QAM due to dual DM/CHF benefits. * Basal insulin * Lantus 22 units SQ QPM * Bolus insulin * NovoLog per scale ACHS or Q6hrs while NPO * Goal Range: Low 110 mg/dL - High 140 mg/dL * Correction Factor: 25 mg/dL/unit * Nutritional / Prandial insulin per carb ratio of 1 unit per 8 grams CHO consumed
[2022-08-23] MEDS: LIDOCAINE 5% 1 PATCH TD SCH (10:33)
[2022-08-23] MEDS ORDERED: bisacodyL 5 MG TABEC PO ONE (13:34)
[2022-08-23] MEDS: POLYETHYLENE (MIRALAX) 17 GM PACK PO SCH (13:44)
[2022-08-23 16:58] LABS: Base Excess VBG 3.3 mEq/L; HCO3 VBG 29 mmol/L; Oxygen Saturation VBG < 60.0 %; PCO2 VBG 48 mmHg (38-50); PO2 VBG 27 mmHg; pH VBG 7.39 (7.36-7.41)
--- NOTE | 2022-08-23 17:44 | Hospitalist Progress Note ---
Date of Service August 23, 2022 Assessment & Plan (1) Compression fracture of L1 lumbar vertebra: Plan: CT lumbar spine with "Acute to subacute L1 compression deformity with 3 mm retropulsion. No significant central canal stenosis." Discussed dx with patient and his at bedside Will ask orthotics to fit him for TLSO brace Lidoderm patches prn Tylenol fortunately his pain is decently controlled at this time 25-OH vit D level >50 in light of right-sided rib fractures and the L1 fracture - trauma/fall? (2) Multiple fractures of ribs, right side, initial encounter for closed fracture: Plan: Ribs 7, 9, and 10 on CTA chest. Lidoderm patches. Discussed this with pt's . Again, in light of #1, suspect trauma as the cause of these injuries. (3) Acute metabolic encephalopathy: Plan: etiology? thus far no specific cause found on large w/u including CTs, labs, etc. VBG checked - CO2 wnl. Ammonia wnl. TSH wnl. B12 wnl. No obvious infectious source found. Sundowning/hospital delirium in setting of dementia? Zyprexa ODT 2.5mg HS scheduled. Additional 2.5mg of zyprexa prn at HS as well. Check u/a and urine cx - r/o UTI. Check CT head - r/o ICH given ? of fall pre-hospitalization; r/o CVA (4) Abdominal distension: Plan: CT a/p without acute pathology. Suspect constipation with gaseous distension as cause. Treat constipation. (5) Shortness of breath: Plan: 2nd to multiple rib fractures, pain from l-spine - all in setting of COPD & restrictive lung disease? CTA chest without pneumonic infiltrates or pulm edema. Stop IV lasix. Defer on abx. Checked VBG - no CO2 retention at this time. (6) PAD (peripheral artery disease): (7) Hypertension: Plan: Mildly high - follow for now. (8) Diabetes mellitus with neurological manifestations, uncontrolled: Plan: large insulin requirements at home (>100 units between 70/30, short-acting novolog, etc). tighten correction factor/carb coverage. leave basal as is. (9) Restrictive lung disease: Plan: per records (10) Morbid obesity: Plan: BMI 34 (11) Resting tremor: Plan: right arm particularly on exam 2nd dementia? 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: Plan: cont finasteride cont tamsulosin (18) Chronic renal failure (CRF), stage 3b: Plan: CrCl at baseline low 30s BMP am (19) Chronic systolic CHF (congestive heart failure): Plan: history of such, but echo in early July 2022 showed normalization of her EF (20) Dementia: Plan: with likely superimposed delirium meds ordered for tonight Plan extensively updated at bedside PT saw patient today; recommended rehab post-discharge Admission and Anticipated Discharge Date Admission Date: August 23, 2022 Subjective patient laying in bed comfortably during my visit he had just tried to use the bathroom to have a BM but wasn't successful he hasn't moved his bowels in 3 days per his who was at bedside she reports the following about her - 1. more confused today vs yesterday 2. poor appetite today as well as at home recently 3. no falls or injuries to her knowledge patient reports recent back pain but denied having any during the visit today the back pain started 2 weeks ago he thinks he "may have bumped into the wall" at home but he wasn't sure denies right sided chest wall pain or pleuritic pain he states that his breathing is ok today no recent sick contacts although his was hospitalized about 6 weeks ago for PEs Review of Systems Review of Systems: gen - no fever; +fatigue, + weakness (Generalized), +poor appetite cv - no chest pain; mild orthopnea pulm - mild dyspnea but no cough GI - constipation present but no emesis or nausea; denies abd pain - denies LUTS neuro - denies focal motor weakness of legs; denies numbness of legs Physical Exam Physical Exam: gen - mild tachypnea intermittently, occasional purse lip breathing, but otherwise NAD; lying flat in bed neck - no obvious JVD mouth - MM slightly dry heart - irregular, s1 s2, no murmur lungs - CTA b/l, no rales; mild intermittent tachypnea noted abd - distended, BS+, NT, no HSM ext - no edema, pulses 2+ b/l neuro - no asterixis; mild tremor right arm/hand; strength 5/5 x 4 exts; DTRs 1+ b/l upper and lower extremities; speech clear, no dysarthria chest - no pain to palpation over the chest Results & Data Results & Data Vital Signs (Past 12 Hours) Vital Signs Temp Pulse Resp BP BP Pulse Ox O2 Del Method 08/23/22 15:42 92 H 18 92 Room Air 08/23/22 15:05 36.6 C 96 H 20 135/72 91 Room Air 08/23/22 11:12 91 08/23/22 11:03 36.8 C 88 20 125/75 90 Room Air 08/23/22 11:02 79 16 92 Room Air 08/23/22 08:15 Room Air 08/23/22 07:46 36.6 C 91 H 20 170/83 H 96 Room Air 08/23/22 07:19 79 16 94 Room Air Laboratory Results Laboratory Results - last 24 hr 08/23/22 08/23/22 08/23/22 05:45 05:45 05:45 WBC 9.07 RBC 5.25 Hgb 15.1 Hct 45.0 MCV 85.7 MCH 28.8 MCHC 33.6 RDW Std Deviation 47.8 H RDW Coeff of Carolyn 15.4 H Plt Count 241 MPV 9.6 Immature Gran % (Auto) 0.6 Neut % (Auto) 79.4 Lymph % (Auto) 8.0 [place] % (Auto) 9.5 Eos % (Auto) 1.4 Baso % (Auto) 1.1 Neut # (Auto) 7.20 H Lymph # (Auto) 0.73 L [place] # (Auto) 0.86 H Eos # (Auto) 0.13 Baso # (Auto) 0.10 Immature Gran # (Auto) 0.05 VBG pH VBG pCO2 VBG pO2 VBG HCO3 VBG O2 Saturation VBG Base Excess Sodium 140 Potassium 3.7 Chloride 102 Carbon Dioxide 28 Anion Gap 10 BUN 40 H Creatinine 2.32 H D Est Cr Clr Drug Dosing 30.1 Est GFR ( Amer) 29.9 Est GFR (Non-Af Amer) 25.8 BUN/Creatinine Ratio 17.2 Glucose 149 H POC Glucose Calcium 9.0 Ammonia Vitamin B12 25-OH Vitamin D Total 56.3 Urine Color Urine Appearance Urine pH Ur Specific [place] Urine Protein Urine Glucose (UA) Urine Ketones Urine Blood Urine Nitrite Urine Bilirubin Urine Urobilinogen Ur Leukocyte Esterase Urine WBC (Auto) Urine RBC (Auto) U Hyaline Cast (Auto) U Epithel Cells (Auto) Urine Bacteria (Auto) 08/23/22 08/23/22 08/23/22 07:17 11:21 16:39 WBC RBC Hgb Hct MCV MCH MCHC RDW Std Deviation RDW Coeff of Carolyn Plt Count MPV Immature Gran % (Auto) Neut % (Auto) Lymph % (Auto) [place] % (Auto) Eos % (Auto) Baso % (Auto) Neut # (Auto) Lymph # (Auto) [place] # (Auto) Eos # (Auto) Baso # (Auto) Immature Gran # (Auto) VBG pH VBG pCO2 VBG pO2 VBG HCO3 VBG O2 Saturation VBG Base Excess Sodium Potassium Chloride Carbon Dioxide Anion Gap BUN Creatinine Est Cr Clr Drug Dosing Est GFR ( Amer) Est GFR (Non-Af Amer) BUN/Creatinine Ratio Glucose POC Glucose 141 H 74 Calcium Ammonia 30.0 Vitamin B12 25-OH Vitamin D Total Urine Color Urine Appearance Urine pH Ur Specific [place] Urine Protein Urine Glucose (UA) Urine Ketones Urine Blood Urine Nitrite Urine Bilirubin Urine Urobilinogen Ur Leukocyte Esterase Urine WBC (Auto) Urine RBC (Auto) U Hyaline Cast (Auto) U Epithel Cells (Auto) Urine Bacteria (Auto) 08/23/22 08/23/22 08/23/22 16:39 16:39 16:42 WBC RBC Hgb Hct MCV MCH MCHC RDW Std Deviation RDW Coeff of Carolyn Plt Count MPV Immature Gran % (Auto) Neut % (Auto) Lymph % (Auto) [place] % (Auto) Eos % (Auto) Baso % (Auto) Neut # (Auto) Lymph # (Auto) [place] # (Auto) Eos # (Auto) Baso # (Auto) Immature Gran # (Auto) VBG pH 7.39 VBG pCO2 48 VBG pO2 27 VBG HCO3 29 VBG O2 Saturation < 60.0 VBG Base Excess 3.3 Sodium Potassium Chloride Carbon Dioxide Anion Gap BUN Creatinine Est Cr Clr Drug Dosing Est GFR ( Amer) Est GFR (Non-Af Amer) BUN/Creatinine Ratio Glucose POC Glucose 261 H Calcium Ammonia Vitamin B12 444 25-OH Vitamin D Total Urine Color Urine Appearance Urine pH Ur Specific [place] Urine Protein Urine Glucose (UA) Urine Ketones Urine Blood Urine Nitrite Urine Bilirubin Urine Urobilinogen Ur Leukocyte Esterase Urine WBC (Auto) Urine RBC (Auto) U Hyaline Cast (Auto) U Epithel Cells (Auto) Urine Bacteria (Auto) 08/23/22 08/23/22 20:14 Unknown WBC RBC Hgb Hct MCV MCH MCHC RDW Std Deviation RDW Coeff of Carolyn Plt Count MPV Immature Gran % (Auto) Neut % (Auto) Lymph % (Auto) [place] % (Auto) Eos % (Auto) Baso % (Auto) Neut # (Auto) Lymph # (Auto) [place] # (Auto) Eos # (Auto) Baso # (Auto) Immature Gran # (Auto) VBG pH VBG pCO2 VBG pO2 VBG HCO3 VBG O2 Saturation VBG Base Excess Sodium Potassium Chloride Carbon Dioxide Anion Gap BUN Creatinine Est Cr Clr Drug Dosing Est GFR ( Amer) Est GFR (Non-Af Amer) BUN/Creatinine Ratio Glucose POC Glucose 129 H Calcium Ammonia Vitamin B12 25-OH Vitamin D Total Urine Color Yellow Urine Appearance Clear Urine pH 5.0 Ur Specific [place] 1.023 Urine Protein Trace H Urine Glucose (UA) 3+ H Urine Ketones Negative Urine Blood Negative Urine Nitrite Negative Urine Bilirubin Negative Urine Urobilinogen Negative Ur Leukocyte Esterase Negative Urine WBC (Auto) 1-5 Urine RBC (Auto) 0-4 U Hyaline Cast (Auto) 1-5 U Epithel Cells (Auto) 0-5 Urine Bacteria (Auto) Negative PG Care Time/CCT Total # of Minutes Spent Total Time Spent with Patient: Total time spent is greater than 50% in coordination of care (as documented) at patient's floor/unit and/or counseling patient: Coding Level of Care Code 48483 SUB INP/OBS CARE 3/50MIN Diagnoses Compression fracture of L1 lumbar vertebra S32.010A Multiple fractures of ribs, right side, initial encounter for closed fracture S22.41XA Acute metabolic encephalopathy G93.41 Abdominal distension R14.0 Shortness of breath R06.02 PAD (peripheral artery disease) I73.9 Hypertension I10 Hypertension type: essential hypertension Diabetes mellitus with neurological manifestations, uncontrolled E11.49; E11.65 Restrictive lung disease J98.4 Morbid obesity E66.01 Resting tremor G25.2 Tracheomalacia J39.8 CAD (coronary artery disease) I25.10 Coronary Disease-Associated Artery/Lesion type: [place] artery [place] vs. transplanted heart: [place] heart Associated angina: without angina Permanent atrial fibrillation I48.21 COPD (chronic obstructive pulmonary disease) J44.9 Chronic diastolic congestive heart failure, NYHA class 2 I50.32 BPH with obstruction/lower urinary tract symptoms N40.1; N13.8 Chronic renal failure (CRF), stage 3b N18.32 Chronic systolic CHF (congestive heart failure) I50.22 Dementia F03.90 (7) Hypertension Hypertension type: essential hypertension Qualified Code(s): I10 - Essential (primary) hypertension (13) CAD (coronary artery disease) Coronary Disease-Associated Artery/Lesion type: [place] artery [place] vs. transplanted heart: [place] heart Associated angina: without angina Qualified Code(s): I25.10 - Atherosclerotic heart disease of [place] coronary artery without angina pectoris
[2022-08-23 18:41] LABS: Appearance Urine Clear (Clear); Bacteria Urine Automated Negative (Negative); Bilirubin Urine Negative (Negative); Blood Urine Negative (Negative); Color Urine Yellow; Epithelial Cell Urine Auto 0-5 /lpf (0-5); Glucose Urine UA 3+ (Negative); Ketones Urine Negative (Negative); Leukocyte Esterase Urine Negative (Negative); Nitrite Urine Negative (Negative); Protein Urine Trace (Negative); RBC Urine Automated 0-4 /hpf (0-4); Specific Gravity Urine 1.023 (1.000-1.030); Urobilinogen Urine Negative (Negative)
[2022-08-23] MEDS ORDERED: OLANZapine ZYDIS 5 MG ORALLY DIS. TAB PO PRN (19:12)
[2022-08-23] MEDS ORDERED: ALBUT/IPRATROP 3MG/0.5MG NEB 3 ML VIAL NEB PRN (20:36)
[2022-08-23] MEDS: OLANZapine ZYDIS 5 MG ORALLY DIS. TAB PO SCH (21:08)
[2022-08-23] MEDS: LANTUS PER UNIT CHARGE SQ SCH (21:10)
[2022-08-23] MEDS: LATANOPROST 0.005% OP SOLN 2.5 ML BTL OPB SCH (21:10)
[2022-08-23] MEDS: CLOPIDOGREL BISULFATE 75 MG TAB PO SCH (21:11)
--- NOTE | 2022-08-24 00:02 | Electrocardiogram Report ---
Test Reason : Blood Pressure : / mmHG Vent. Rate : 097 BPM Atrial Rate : 097 BPM P-R Int : 000 ms QRS Dur : 084 ms QT Int : 370 ms P-R-T Axes : 000 -26 -30 degrees QTc Int : 469 ms Atrial fibrillation with premature ventricular or aberrantly conducted complexes Nonspecific T wave abnormality Abnormal ECG When compared with ECG of 04-AUG-2022 10:56, Premature ventricular complexes are now Present Confirmed by Adolph Vines ([id number]) on 08/24/2022 12:02:42 AM Referred By: REFERRED SELF Confirmed By:Adolph Vines
[2022-08-24] MEDS: LEVOTHYROXINE SODIUM 100 MCG TABLET PO SCH (05:40)
--- NOTE | 2022-08-24 06:58 | CT Scan Report ---
HEAD CT NONCONTRAST CT DOSE: 998.18 mGy.cm HISTORY: recent fall, confusion, chronic anticoagulation TECHNIQUE: Multiaxial CT images of the head were performed without the use of intravenous contrast. A utomated exposure control was utilized for this study. A dose lowering technique was utilized adheri ng to the principles of ALARA. Comparison: Head CT 06/18/2022. Findings: The paranasal sinuses and mastoid air cells are clear. The calvarium and skull base are int act. There is no mass, hematoma, midline shift, acute infarct. White matter hypodensity is nonspecifi c but suggestive of microvascular ischemic change. The ventricles and sulci demonstrate mild age-rela mamie involutional changes. Impression: No acute intracranial abnormality. Atrophy and microvascular ischemic changes. ACT 112: Negative or not required by law. Electronically signed by: Zachary Gonzalez M.D. 08/24/2022 6:55 AM
[2022-08-24 07:55] LABS: Calcium 9.2 mg/dl (8.6-10.3); Creatinine Clr Calc Pharmacy 27.8 ml/min; Est GFR (African American) 27.3 ml/min; Est GFR (Non-African American) 23.5 ml/min; Potassium 3.3 mmol/L (3.5-5.1)
[2022-08-24] MEDS ORDERED: MINERAL OIL ENEMA 133 ML BTL PR ONE (08:00)
[2022-08-24] MEDS: INSULIN ASPART PER UNIT CHARGE SC SCH ×4 (08:37→22:14)
[2022-08-24] MEDS: APIXABAN 5 MG TABLET PO SCH ×2 (09:02→22:36)
[2022-08-24] MEDS: POTASSIUM CHLORIDE CRTAB 20 MEQ TABCR PO SCH ×3 (09:02→22:36)
[2022-08-24] MEDS: MAGNESIUM CHLORIDE W/CALCIUM 64MG DELAYED REL TAB PO SCH (09:03)
[2022-08-24] MEDS: EMPAGLIFLOZIN 25 MG TAB PO SCH (09:03)
[2022-08-24] MEDS: FINASTERIDE 5 MG TAB PO SCH (09:03)
[2022-08-24] MEDS: SERTRALINE HCL 50 MG TABLET PO SCH (09:03)
[2022-08-24] MEDS: CHOLECALCIFEROL 5,000 UNITS 125 MCG TAB PO SCH (09:03)
[2022-08-24] MEDS: hydrALAZINE TAB 50 MG TAB PO SCH ×4 (09:03→22:36)
[2022-08-24] MEDS: DONEPEZIL HCL 10 MG TAB PO SCH (09:03)
[2022-08-24] MEDS: PANTOprazole 40 MG TAB PO SCH (09:04)
[2022-08-24] MEDS: GLUCOSAMINE SULFATE 500 MG CAP PO SCH (09:04)
[2022-08-24] MEDS: POLYETHYLENE (MIRALAX) 17 GM PACK PO SCH (09:04)
[2022-08-24] MEDS: TAMSULOSIN HCL 0.4 MG CAP PO SCH (09:04)
[2022-08-24] MEDS: DORZOLAMIDE HCL 2% OPH SOLN 10 ML BTL OPB SCH ×2 (09:04→22:36)
[2022-08-24] MEDS: LIDOCAINE 5% 1 PATCH TD SCH (09:05)
[2022-08-24] MEDS: METOPROLOL SUCC 50MG EXT REL TAB PO SCH (09:06)
[2022-08-24] MEDS ORDERED: bisacodyL 10 MG SUPP PR STA (13:38)
--- NOTE | 2022-08-24 13:39 | Hospitalist Progress Note ---
Date of Service August 24, 2022 Assessment & Plan (1) Compression fracture of L1 lumbar vertebra: Plan: CT lumbar spine with "Acute to subacute L1 compression deformity with 3 mm retropulsion. No significant central canal stenosis." Pain under relatively good control at this time. Orthotics delivered TLSO brace today. PT, OT both advising rehab due to weakness/deconditioning. Lidoderm patches prn Tylenol 25-OH vit D level >50 in light of right-sided rib fractures and the L1 fracture - trauma/fall, but not aware of one; patient thinks he bumped into a wall at home? (2) Multiple fractures of ribs, right side, initial encounter for closed fracture: Plan: Ribs 7, 9, and 10 on CTA chest. Lidoderm patches. Again, in light of #1, suspect trauma as the cause of these injuries. (3) Acute metabolic encephalopathy: Plan: likely due to pain and/or hospital psychosis/hospital delirium. no infectious etiology found. VBG checked - CO2 wnl. Ammonia wnl. TSH wnl. B12 wnl. CT head neg for ICH/acute findings. u/a not suggestive of UTI. Cont Zyprexa ODT 2.5mg HS scheduled. Additional 2.5mg of zyprexa prn at HS as well. (4) Abdominal distension: Plan: CT a/p without acute pathology. Suspect constipation with gaseous distension as cause. Still remains constipated. Enema not successful today. Try suppository. Cont on PO bowel maintenance. (5) Shortness of breath: Plan: 2nd to multiple rib fractures, pain from l-spine - all in setting of COPD & restrictive lung disease. CTA chest without pneumonic infiltrates or pulm edema. No evidence of decompensated CHF. Checked VBG - no CO2 retention. Lung exam relatively normal today and no pulmonary symptoms today either. (6) PAD (peripheral artery disease): (7) Hypertension: Plan: still Mildly high - given concomitant high a.fib rates at times consider titration of metoprolol or adding cardizem. (8) Diabetes mellitus with neurological manifestations, uncontrolled: Plan: large insulin requirements at home (>100 units between 70/30, short-acting novolog, etc). controlled with basal-bolus regimen here. (9) Restrictive lung disease: Plan: per records (10) Morbid obesity: Plan: BMI 34 (11) Resting tremor: Plan: right arm particularly on exam 2nd dementia? 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: Plan: cont finasteride cont tamsulosin (18) Chronic renal failure (CRF), stage 3b: Plan: CrCl at baseline low 30s BMP am (19) Chronic systolic CHF (congestive heart failure): Plan: history of such, but echo in early July 2022 showed normalization of his EF (20) Dementia: Plan: with likely superimposed delirium cont zyprexa HS scheduled Plan replace low K BMP am extensively updated at bedside again today dispo - rehab post-discharge recommended by both PT/OT Admission and Anticipated Discharge Date Admission Date: August 23, 2022 Subjective no events overnight he states "I think I slept good" eating is improved - took 75% of breakfast only mild lower back pain denies right-sided chest discomfort over rib fractures breathing is ok/normal - denies dyspnea despite enema this am still no BM (couldn't hold the enema) at bedside tele - a.zain Review of Systems Review of Systems: cv - no cp, no orthopnea pulm - no dyspnea GI - no nausea but feels "bloated" Physical Exam Physical Exam: gen - looks good today; no pursed lip breathing; no dyspnea or tachypnea neck - no obvious JVD mouth - MMM heart - irregular, s1 s2, no murmur lungs - CTA b/l, no rales abd - still distended but nontender; BS+, no HSM ext - no edema, pulses 2+ b/l neuro - speech clear, no dysarthria Results & Data Results & Data Vital Signs (Past 12 Hours) Vital Signs Temp Pulse Resp BP BP Pulse Ox O2 Del Method 08/24/22 11:25 36.8 C 83 20 132/84 96 Room Air 08/24/22 07:37 36.6 C 85 20 144/83 H 94 Room Air Laboratory Results Laboratory Results - last 24 hr 08/24/22 08/24/22 08/24/22 06:47 06:47 07:41 Sodium 142 Potassium 3.3 L Chloride 102 Carbon Dioxide 30 Anion Gap 10 BUN 45 H Creatinine 2.50 H Est Cr Clr Drug Dosing 27.8 Est GFR ( Amer) 27.3 Est GFR (Non-Af Amer) 23.5 BUN/Creatinine Ratio 18.0 Glucose 106 H POC Glucose 106 H Calcium 9.2 Vitamin B1 Pending 08/24/22 08/24/22 08/24/22 11:34 16:33 20:10 Sodium Potassium Chloride Carbon Dioxide Anion Gap BUN Creatinine Est Cr Clr Drug Dosing Est GFR ( Amer) Est GFR (Non-Af Amer) BUN/Creatinine Ratio Glucose POC Glucose 148 H 118 H 111 H Calcium Vitamin B1 PG Care Time/CCT Total # of Minutes Spent Total Time Spent with Patient: Total time spent is greater than 50% in coordination of care (as documented) at patient's floor/unit and/or counseling patient: Coding Level of Care Code 40020 SUB INP/OBS CARE 235MIN Diagnoses Compression fracture of L1 lumbar vertebra S32.010A Multiple fractures of ribs, right side, initial encounter for closed fracture S22.41XA Acute metabolic encephalopathy G93.41 Abdominal distension R14.0 Shortness of breath R06.02 PAD (peripheral artery disease) I73.9 Hypertension I10 Hypertension type: essential hypertension Diabetes mellitus with neurological manifestations, uncontrolled E11.49; E11.65 Restrictive lung disease J98.4 Morbid obesity E66.01 Resting tremor G25.2 Tracheomalacia J39.8 CAD (coronary artery disease) I25.10 Associated angina: without angina Coronary Disease-Associated Artery/Lesion type: [place] artery [place] vs. transplanted heart: [place] heart Permanent atrial fibrillation I48.21 COPD (chronic obstructive pulmonary disease) J44.9 Chronic diastolic congestive heart failure, NYHA class 2 I50.32 BPH with obstruction/lower urinary tract symptoms N40.1; N13.8 Chronic renal failure (CRF), stage 3b N18.32 Chronic systolic CHF (congestive heart failure) I50.22 Dementia F03.90 (7) Hypertension Hypertension type: essential hypertension Qualified Code(s): I10 - Essential (primary) hypertension (13) CAD (coronary artery disease) Associated angina: without angina Coronary Disease-Associated Artery/Lesion type: [place] artery [place] vs. transplanted heart: [place] heart Qualified Code(s): I25.10 - Atherosclerotic heart disease of [place] coronary artery without angina pectoris
[2022-08-24] MEDS: LANTUS PER UNIT CHARGE SQ SCH (22:36)
[2022-08-24] MEDS: OLANZapine ZYDIS 5 MG ORALLY DIS. TAB PO SCH (22:36)
[2022-08-24] MEDS: LATANOPROST 0.005% OP SOLN 2.5 ML BTL OPB SCH (22:37)
[2022-08-25] MEDS: LEVOTHYROXINE SODIUM 100 MCG TABLET PO SCH (04:49)
[2022-08-25 07:43] LABS: BUN Creatinine Ratio 18.8 (10-20); Calcium 9.1 mg/dl (8.6-10.3); Creatinine Clr Calc Pharmacy 30.2 ml/min; Est GFR (African American) 30.3 ml/min; Est GFR (Non-African American) 26.2 ml/min; Potassium 4.1 mmol/L (3.5-5.1)
[2022-08-25] MEDS: INSULIN ASPART PER UNIT CHARGE SC SCH ×4 (08:41→22:11)
[2022-08-25] MEDS: SERTRALINE HCL 50 MG TABLET PO SCH (10:13)
[2022-08-25] MEDS: TAMSULOSIN HCL 0.4 MG CAP PO SCH (10:14)
[2022-08-25] MEDS: hydrALAZINE TAB 50 MG TAB PO SCH ×4 (10:14→20:27)
[2022-08-25] MEDS: GLUCOSAMINE SULFATE 500 MG CAP PO SCH (10:14)
[2022-08-25] MEDS: CHOLECALCIFEROL 5,000 UNITS 125 MCG TAB PO SCH (10:14)
[2022-08-25] MEDS: FUROSEMIDE 40 MG TAB PO SCH (10:14)
[2022-08-25] MEDS: EMPAGLIFLOZIN 25 MG TAB PO SCH (10:14)
[2022-08-25] MEDS: MAGNESIUM CHLORIDE W/CALCIUM 64MG DELAYED REL TAB PO SCH (10:14)
[2022-08-25] MEDS: DORZOLAMIDE HCL 2% OPH SOLN 10 ML BTL OPB SCH ×2 (10:15→20:28)
[2022-08-25] MEDS: THIAMINE HCL 100 MG TAB PO SCH ×2 (10:15→20:27)
[2022-08-25] MEDS: FINASTERIDE 5 MG TAB PO SCH (10:15)
[2022-08-25] MEDS: DONEPEZIL HCL 10 MG TAB PO SCH (10:15)
[2022-08-25] MEDS: PANTOprazole 40 MG TAB PO SCH (10:15)
[2022-08-25] MEDS: LIDOCAINE 5% 1 PATCH TD SCH (10:16)
[2022-08-25] MEDS: APIXABAN 5 MG TABLET PO SCH ×2 (10:16→20:27)
[2022-08-25] MEDS: METOPROLOL SUCC 50MG EXT REL TAB PO SCH (10:17)
[2022-08-25] MEDS: POLYETHYLENE (MIRALAX) 17 GM PACK PO SCH (10:17)
[2022-08-25] MEDS: OLANZapine 10 MG/2.1 ML SDV IM STA ×2 (12:47→14:15)
--- NOTE | 2022-08-25 12:47 | Pharmacy Report ---
Pharmacy Glycemic Short Note 2 - Date of Service August 25, 2022 - Glycemic Short BSG Results (Last 24 hours): 08/24/22 08/24/22 08/25/22 16:33 20:10 06:38 Glucose 106 H POC Glucose 118 H 111 H 08/25/22 08/25/22 07:22 11:33 Glucose POC Glucose 119 H 122 H OUTPATIENT ANTIDIABETIC REGIMEN: * Tresiba 22 uints QPM * Novolog mix 70/30 70 units with breakfast, 60 units with dinner * Novolog SS * Jardiance 25mg * HbA1c 9.8% 06/19/22 ASSESSMENT: 08/25/22 * Patient's BSGs yesterday were [phone] mg/dL. Patient received 36 units (22 units of Lantus and 14 units of Novolog). * Fasting today is 119 mg/dL. * Continue insulin as all BSGs within goal range. BACKGROUND * Mr. Petty is a 77 YOM admitted with shortness of breath, history of T2DM. Pharmacy is consulted for glycemic management while inpatient. * No glycemic stressors noted at this time * Patient has a complex home regimen with multiple SQ insulins. Estimated conversion of Novolin 70/30 to Lantus is 49 units with breakfast and 42 units with dinner. * Based on previous admissions with increased stressors, the patient's basal regimen was started conservatively substituting Tresiba home dose with Lantus 22 units. Continue with Lantus 22 units QPM * Will not add add in additional home basal from Novolog mix due to concerning lunch time low of 74. Estimated conversion of Novolin 70/30 to basal Lantus is 49 units with breakfast and 42 units with dinner. * Started Novolog at CF 20 CR 5 (successful regimen on previous admissions). Concern for overcorrection at breakfast, Novolog parameters loosened to a weight based stress of 2 with a CF of 25 and a CR of 8 PLAN FOR INPATIENT GLYCEMIC CONTROL: * Hold outpatient oral diabetes medications, but continue Jardiance 25mg QAM due to dual DM/CHF benefits. * Basal insulin * Lantus 22 units SQ QPM * Bolus insulin * NovoLog per scale ACHS or Q6hrs while NPO * Goal Range: Low 110 mg/dL - High 140 mg/dL * Correction Factor: 25 mg/dL/unit * Nutritional / Prandial insulin per carb ratio of 1 unit per 8 grams CHO consumed
[2022-08-25] MEDS ORDERED: OLANZapine 10 MG/2.1 ML SDV IM STA (13:52)
[2022-08-25] MEDS ORDERED: OLANZapine ZYDIS 5 MG ORALLY DIS. TAB PO STA (13:53)
[2022-08-25] MEDS: OLANZapine ZYDIS 5 MG ORALLY DIS. TAB PO SCH (20:27)
[2022-08-25] MEDS: LATANOPROST 0.005% OP SOLN 2.5 ML BTL OPB SCH (20:27)
[2022-08-25] MEDS: CLOPIDOGREL BISULFATE 75 MG TAB PO SCH (20:27)
[2022-08-25] MEDS: LANTUS PER UNIT CHARGE SQ SCH (22:12)
--- NOTE | 2022-08-25 22:22 | Hospitalist Progress Note ---
Date of Service August 25, 2022 Assessment & Plan (1) Compression fracture of L1 lumbar vertebra: Plan: CT lumbar spine with "Acute to subacute L1 compression deformity with 3 mm retropulsion. No significant central canal stenosis." Pain under relatively good control today. TLSO brace has been delivered but patient is not wearing it when he gets up. PT, OT still both advising rehab due to weakness/deconditioning. understands he is not fit for d/c home. cont Lidoderm patches prn add Tylenol 1gm TID 25-OH vit D level >50 in light of right-sided rib fractures and the L1 fracture he likely had trauma/fall, but not aware of one; patient thinks he bumped into a wall at home? (2) Multiple fractures of ribs, right side, initial encounter for closed fracture: Plan: Ribs 7, 9, and 10 on CTA chest. Lidoderm patches. Scheduled tylenol Again, in light of #1, suspect trauma as the cause of these injuries. (3) Acute metabolic encephalopathy: Plan: likely due to pain and/or hospital psychosis/hospital delirium. no infectious etiology found. VBG checked - CO2 wnl. Ammonia wnl. TSH wnl. B12 wnl. CT head neg for ICH/acute findings. u/a not suggestive of UTI. Cont Zyprexa ODT but increase to 5mg HS scheduled. Additional 2.5mg of zyprexa prn at HS as well for uncontrolled agitation. reports that he has significant insomnia - often he is up much of the night; and he has periods of agitation when he gets upset with her verbally. (4) Abdominal distension: Plan: CT a/p without acute pathology. Suspect constipation with gaseous distension as cause. Distension improved s/p improvement in constipation (multiple BMs since last pm) (5) Shortness of breath: Plan: 2nd to multiple rib fractures, pain from l-spine - all in setting of COPD & restrictive lung disease. CTA chest without pneumonic infiltrates or pulm edema. No evidence of decompensated CHF. Checked VBG - no CO2 retention. Lung exam again normal today and no pulmonary symptoms today either. No respiratory distress. (6) PAD (peripheral artery disease): Plan: Cont plavix cont eliquis (7) Hypertension: Plan: still Mildly high but suspect agitation is feeding into this. consider titration of metoprolol or adding cardizem. defer for now. (8) Diabetes mellitus with neurological manifestations, uncontrolled: Plan: large insulin requirements at home (>100 units between 70/30, short-acting novolog, etc). controlled with basal-bolus regimen here. (9) Restrictive lung disease: Plan: per records (10) Morbid obesity: Plan: BMI 34 (11) Resting tremor: Plan: right arm particularly on exam 2nd dementia? (12) Tracheomalacia: Plan: noted again no stridor noted on exam today (13) CAD (coronary artery disease): Plan: no evidence of ischemia (14) Permanent atrial fibrillation: Plan: cont metoprolol xl cont Eliquis BID telemetry consider metoprolol titration or adding cardizem if rates remain >100 (15) COPD (chronic obstructive pulmonary disease): Plan: without exacerbation [employer] respiratory panel fully negative CTA chest without infiltrates (16) Chronic diastolic congestive heart failure, NYHA class 2: Plan: compensated at this time resume lasix 40mg once daily each am cont metoprolol succinate 100mg daily (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: Plan: cont finasteride cont tamsulosin (18) Chronic renal failure (CRF), stage 3b: Plan: CrCl at baseline low 30s Cr today 2.2 - baseline (19) Chronic systolic CHF (congestive heart failure): Plan: history of such, but echo in early July 2022 showed normalization of his EF (20) Dementia: Plan: with superimposed delirium cont zyprexa HS scheduled but increase to 5mg HS Plan extensively updated at bedside again today I also called her this evening again told her PT/OT still advising rehab post-d/c referrals in place - social work assisting hopefully to SNF early this coming week Admission and Anticipated Discharge Date Admission Date: August 23, 2022 Subjective patient was up most of the night last pm this am he ate breakfast, and then mid-day he refused his lunch and refused some medications nursing called me as he was threatening to leave I came to bedside and he was sitting in the chair was present he was extremely agitated, stating "he had enough and I want to go home" explained that he was very weak and that it was unsafe to go home dose of IM zyprexa was ordered STAT shortly after I spoke with PT/OT and asked them to visit with him while his was present wanted his to watch his walking so that she knew he was physically unfit to safely return home tele was wnl overnight the patient denied any new complaints per staff he has had several large BMs since last pm Review of Systems Review of Systems: cv - no chest pain pulm - no dyspnea GI - no pain, no nausea Physical Exam Physical Exam: gen - physically NAD; very agitated, however; he was redirectable mouth - MMM heart - irregular, s1 s2, no murmur lungs - CTA b/l, no rales abd - distension improved;nontender; BS+, no HSM ext - no edema, pulses 2+ b/l neuro - speech clear, no dysarthria, no focal deficits psych - very agitated; poor insight into his medical problems Results & Data Results & Data Vital Signs (Past 12 Hours) Vital Signs Temp Pulse Resp BP BP Pulse Ox O2 Del Method 08/25/22 22:13 36.7 C 85 20 155/92 H 95 Room Air 08/25/22 19:22 37.1 C 83 18 158/83 H 91 Room Air 08/25/22 20:24 84 20 164/78 H 98 Room Air 08/25/22 15:52 36.4 C L 95 H 18 113/68 94 Room Air 08/25/22 14:08 134/76 08/25/22 11:03 36.3 C L 71 18 186/106 H 94 Room Air Laboratory Results Laboratory Results - last 24 hr 08/25/22 08/25/22 08/25/22 06:38 07:22 11:33 Sodium 143 Potassium 4.1 D Chloride 106 Carbon Dioxide 28 Anion Gap 9 BUN 43 H Creatinine 2.29 H Est Cr Clr Drug Dosing 30.2 Est GFR ( Amer) 30.3 Est GFR (Non-Af Amer) 26.2 BUN/Creatinine Ratio 18.8 Glucose 106 H POC Glucose 119 H 122 H Calcium 9.1 08/25/22 08/25/22 16:32 21:15 Sodium Potassium Chloride Carbon Dioxide Anion Gap BUN Creatinine Est Cr Clr Drug Dosing Est GFR ( Amer) Est GFR (Non-Af Amer) BUN/Creatinine Ratio Glucose POC Glucose 214 H 202 H Calcium PG Care Time/CCT Total # of Minutes Spent Total Time Spent with Patient: Total time spent is greater than 50% in coordination of care (as documented) at patient's floor/unit and/or counseling patient: Coding Level of Care Code 97611 SUB INP/OBS CARE MIN Diagnoses Compression fracture of L1 lumbar vertebra S32.010A Multiple fractures of ribs, right side, initial encounter for closed fracture S22.41XA Acute metabolic encephalopathy G93.41 Abdominal distension R14.0 Shortness of breath R06.02 PAD (peripheral artery disease) I73.9 Hypertension I10 Hypertension type: essential hypertension Diabetes mellitus with neurological manifestations, uncontrolled E11.49; E11.65 Restrictive lung disease J98.4 Morbid obesity E66.01 Resting tremor G25.2 Tracheomalacia J39.8 CAD (coronary artery disease) I25.10 Associated angina: without angina Coronary Disease-Associated Artery/Lesion type: [place] artery [place] vs. transplanted heart: [place] heart Permanent atrial fibrillation I48.21 COPD (chronic obstructive pulmonary disease) J44.9 Chronic diastolic congestive heart failure, NYHA class 2 I50.32 BPH with obstruction/lower urinary tract symptoms N40.1; N13.8 Chronic renal failure (CRF), stage 3b N18.32 Chronic systolic CHF (congestive heart failure) I50.22 Dementia F03.90 (7) Hypertension Hypertension type: essential hypertension Qualified Code(s): I10 - Essential (primary) hypertension (13) CAD (coronary artery disease) Associated angina: without angina Coronary Disease-Associated Artery/Lesion type: [place] artery [place] vs. transplanted heart: [place] heart Qualified Code(s): I25.10 - Atherosclerotic heart disease of [place] coronary artery without angina pectoris
[2022-08-26] MEDS: LEVOTHYROXINE SODIUM 100 MCG TABLET PO SCH (05:50)
[2022-08-26] MEDS: INSULIN ASPART PER UNIT CHARGE SC SCH ×4 (08:00→21:01)
[2022-08-26] MEDS: ACETAMINOPHEN 500 MG TAB PO SCH ×3 (08:08→20:58)
[2022-08-26] MEDS: CHOLECALCIFEROL 5,000 UNITS 125 MCG TAB PO SCH (08:09)
[2022-08-26] MEDS: SERTRALINE HCL 50 MG TABLET PO SCH (08:09)
[2022-08-26] MEDS: THIAMINE HCL 100 MG TAB PO SCH ×2 (08:09→20:59)
[2022-08-26] MEDS: EMPAGLIFLOZIN 25 MG TAB PO SCH (08:09)
[2022-08-26] MEDS: TAMSULOSIN HCL 0.4 MG CAP PO SCH (08:09)
[2022-08-26] MEDS: PANTOprazole 40 MG TAB PO SCH (08:09)
[2022-08-26] MEDS: GLUCOSAMINE SULFATE 500 MG CAP PO SCH (08:09)
[2022-08-26] MEDS: DONEPEZIL HCL 10 MG TAB PO SCH (08:09)
[2022-08-26] MEDS: APIXABAN 5 MG TABLET PO SCH ×2 (08:10→20:59)
[2022-08-26] MEDS: hydrALAZINE TAB 50 MG TAB PO SCH ×4 (08:10→20:59)
[2022-08-26] MEDS: MAGNESIUM CHLORIDE W/CALCIUM 64MG DELAYED REL TAB PO SCH (08:10)
[2022-08-26] MEDS: FUROSEMIDE 40 MG TAB PO SCH (08:11)
[2022-08-26] MEDS: FINASTERIDE 5 MG TAB PO SCH (08:11)
[2022-08-26] MEDS: POLYETHYLENE (MIRALAX) 17 GM PACK PO SCH (08:11)
[2022-08-26] MEDS: METOPROLOL SUCC 50MG EXT REL TAB PO SCH (08:11)
[2022-08-26] MEDS: VIBEGRON 75 MG TAB PO SCH (08:12)
[2022-08-26] MEDS: DORZOLAMIDE HCL 2% OPH SOLN 10 ML BTL OPB SCH ×2 (08:13→21:00)
[2022-08-26] MEDS: LIDOCAINE 5% 1 PATCH TD SCH (08:14)
[2022-08-26 08:18] LABS: BUN Creatinine Ratio 21.1 (10-20); Calcium 9.4 mg/dl (8.6-10.3); Creatinine Clr Calc Pharmacy 32.3 ml/min; Est GFR (African American) 33.1 ml/min; Est GFR (Non-African American) 28.6 ml/min; Potassium 3.8 mmol/L (3.5-5.1)
--- NOTE | 2022-08-26 20:00 | Hospitalist Progress Note ---
Date of Service August 26, 2022 Assessment & Plan (1) Compression fracture of L1 lumbar vertebra: Plan: CT lumbar spine with "Acute to subacute L1 compression deformity with 3 mm retropulsion. No significant central canal stenosis." Pain controlled. TLSO brace has been delivered but patient is not wearing it when he gets up. PT, OT advise rehab post-d/c. cont Lidoderm patches prn cont Tylenol 1gm TID 25-OH vit D level >50 in light of right-sided rib fractures and the L1 fracture he likely had trauma/fall, but not aware of one; patient thinks he bumped into a wall at home? (2) Multiple fractures of ribs, right side, initial encounter for closed fracture: Plan: Ribs 7, 9, and 10 on CTA chest. Lidoderm patches. Scheduled tylenol Again, in light of #1, suspect trauma as the cause of these injuries. (3) Acute metabolic encephalopathy: Plan: likely due to pain and/or hospital psychosis/hospital delirium. this seems better today with use of scheduled zyprexa. no infectious etiology found. VBG checked - CO2 wnl. Ammonia wnl. TSH wnl. B12 wnl. CT head neg for ICH/acute findings. u/a not suggestive of UTI. Cont Zyprexa ODT 5mg HS scheduled. Additional 2.5mg of zyprexa prn at HS as well for uncontrolled agitation. reports that he has significant insomnia - often he is up much of the night; and he has periods of agitation when he gets upset with her verbally. would discharge from hospital on the zyprexa. (4) Abdominal distension: Plan: CT a/p without acute pathology. Suspect constipation with gaseous distension as cause. Distension improved s/p improvement in constipation. (5) Shortness of breath: Plan: resolved. 2nd to multiple rib fractures, pain from l-spine - all in setting of COPD & restrictive lung disease. CTA chest without pneumonic infiltrates or pulm edema. (6) PAD (peripheral artery disease): Plan: Cont plavix cont eliquis (7) Hypertension: Plan: still high/labile add amlodipine 5mg daily (8) Diabetes mellitus with neurological manifestations, uncontrolled: Plan: large insulin requirements at home (>100 units between 70/30, short-acting novolog, etc). controlled with basal-bolus regimen here. pharmacy managing. (9) Restrictive lung disease: Plan: per records (10) Morbid obesity: Plan: BMI 34 (11) Resting tremor: Plan: right arm particularly on exam 2nd dementia? 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: Plan: cont finasteride cont tamsulosin (18) Chronic renal failure (CRF), stage 3b: Plan: CrCl at baseline low 30s BMP today stable (19) Chronic systolic CHF (congestive heart failure): Plan: history of such, but echo in early July 2022 showed normalization of his EF (20) Dementia: Plan: with superimposed delirium cont zyprexa HS scheduled Plan dispo - SNF Admission and Anticipated Discharge Date Admission Date: August 23, 2022 Subjective tele - a.fib, rates <100 lying in bed watching TV comfortably denies any complaints asks "when can I go home?" eating well drinking well no agitation today Review of Systems Review of Systems: cv - no chest pain pulm - no dyspnea GI - no pain; +BM today musculo - no back pain today Physical Exam Physical Exam: gen - lying in bed comfortably watching TV, NAD mouth - MMM heart - irregular, s1 s2, no murmur lungs - CTA b/l, no rales abd - distension unchanged;nontender; BS+, no HSM ext - no edema, pulses 2+ b/l Results & Data Results & Data Vital Signs (Past 12 Hours) Vital Signs Temp Pulse Resp BP Pulse Ox O2 Del Method 08/26/22 15:20 36.7 C 80 18 119/80 91 Room Air 08/26/22 11:21 36.7 C 75 18 129/78 92 Room Air 08/26/22 08:20 Room Air 08/26/22 08:05 36.9 C 80 18 178/93 H 93 Room Air Laboratory Results Laboratory Results - last 24 hr 08/25/22 08/26/22 08/26/22 21:15 06:34 07:37 Sodium 143 Potassium 3.8 Chloride 106 Carbon Dioxide 26 Anion Gap 11 BUN 45 H Creatinine 2.13 H Est Cr Clr Drug Dosing 32.3 Est GFR ( Amer) 33.1 Est GFR (Non-Af Amer) 28.6 BUN/Creatinine Ratio 21.1 H Glucose 71 POC Glucose 202 H 86 Calcium 9.4 08/26/22 08/26/22 11:40 16:23 Sodium Potassium Chloride Carbon Dioxide Anion Gap BUN Creatinine Est Cr Clr Drug Dosing Est GFR ( Amer) Est GFR (Non-Af Amer) BUN/Creatinine Ratio Glucose POC Glucose 83 100 H Calcium PG Care Time/CCT Total # of Minutes Spent Total Time Spent with Patient: Total time spent is greater than 50% in coordination of care (as documented) at patient's floor/unit and/or counseling patient: Coding Level of Care Code 24080 SUB INP/OBS CARE 06/07MIN Diagnoses Compression fracture of L1 lumbar vertebra S32.010A Multiple fractures of ribs, right side, initial encounter for closed fracture S22.41XA Acute metabolic encephalopathy G93.41 Abdominal distension R14.0 Shortness of breath R06.02 PAD (peripheral artery disease) I73.9 Hypertension I10 Hypertension type: essential hypertension Diabetes mellitus with neurological manifestations, uncontrolled E11.49; E11.65 Restrictive lung disease J98.4 Morbid obesity E66.01 Resting tremor G25.2 Tracheomalacia J39.8 CAD (coronary artery disease) I25.10 Associated angina: without angina Coronary Disease-Associated Artery/Lesion type: [place] artery [place] vs. transplanted heart: [place] heart Permanent atrial fibrillation I48.21 COPD (chronic obstructive pulmonary disease) J44.9 Chronic diastolic congestive heart failure, NYHA class 2 I50.32 BPH with obstruction/lower urinary tract symptoms N40.1; N13.8 Chronic renal failure (CRF), stage 3b N18.32 Chronic systolic CHF (congestive heart failure) I50.22 Dementia F03.90 (7) Hypertension Hypertension type: essential hypertension Qualified Code(s): I10 - Essential (primary) hypertension (13) CAD (coronary artery disease) Associated angina: without angina Coronary Disease-Associated Artery/Lesion type: [place] artery [place] vs. transplanted heart: [place] heart Qualified Code(s): I25.10 - Atherosclerotic heart disease of [place] coronary artery without angina pectoris
[2022-08-26] MEDS: OLANZapine ZYDIS 5 MG ORALLY DIS. TAB PO SCH (20:59)
[2022-08-26] MEDS: LATANOPROST 0.005% OP SOLN 2.5 ML BTL OPB SCH (21:00)
[2022-08-26] MEDS: LANTUS PER UNIT CHARGE SQ SCH (21:10)
[2022-08-27] MEDS: LEVOTHYROXINE SODIUM 100 MCG TABLET PO SCH (05:49)
--- NOTE | 2022-08-27 07:48 | Hospitalist Progress Note ---
Date of Service August 27, 2022 Assessment & Plan (1) Compression fracture of L1 lumbar vertebra: Plan: acute LI fracture with moderate risk CT lumbar spine with "Acute to subacute L1 compression deformity with 3 mm retropulsion. No significant central canal stenosis." Pain controlled. TLSO brace has been delivered but patient is not wearing it when he gets up. PT, OT advise rehab post-d/c. cont Lidoderm patches prn cont Tylenol 1gm TID 25-OH vit D level >50 Right-sided rib fractures Ribs 7, 9, and 10 on CTA chest. with COPD and restrictive lung disease this initially causes some shortness of breath now resolved Lidoderm patches. Scheduled tylenol (2) Acute metabolic encephalopathy: Plan: self limited due to pain and/or hospital psychosis/hospital delirium. treated with scheduled zyprexa. ODT 5mg HS scheduled. Additional 2.5mg of zyprexa prn at HS as well for uncontrolled agitation. reports that he has significant insomnia - often he is up much of the night; and he has periods of agitation when he gets upset with her verbally. (3) Diabetes mellitus with neurological manifestations, uncontrolled: Plan: chronic uncontrolled large insulin requirements at home (>100 units between 70/30, short-acting novolog, etc). controlled with basal-bolus regimen here. pharmacy managing. (4) Permanent atrial fibrillation: Plan: chronic and stable cont metoprolol xl cont Eliquis BID Chronic diastolic heart failure HFpEF NYHA 2, continues lasix daily caution with CKD 3 also wth hypertension added amlodipine this stay in addition to metoprolol (5) BPH with obstruction/lower urinary tract symptoms: Plan: Chronic and stable cont finasteride tamsulosin (6) Dementia: Plan: acute delerium on chronic demential cont zyprexa HS scheduled (7) PAD (peripheral artery disease): Plan: Chronic and stable Cont plavix & eliquis (8) Morbid obesity: Plan: BMI 34 Admission and Anticipated Discharge Date Admission Date: August 23, 2022 Subjective Patient is accompanied by atrial fibrillation is rate controlled pain is also controlled waiting on placement for rehab Physical Exam Physical Exam: Awake alert appropriate oriented x2 Regular cardiac exam with rate controlled Lungs are clear Extremities with trace edema Results & Data Results & Data Vital Signs (Past 12 Hours) Vital Signs Temp Pulse Resp BP Pulse Ox O2 Del Method 08/26/22 23:53 97.7 F 87 20 178/91 H 91 Room Air PG Care Time/CCT Total # of Minutes Spent Total Time Spent with Patient: Total time spent is greater than 50% in coordination of care (as documented) at patient's floor/unit and/or counseling patient: Coding Level of Care Code 84128 SUB INP/OBS CARE 2/35MIN Diagnoses Compression fracture of L1 lumbar vertebra S32.010A Acute metabolic encephalopathy G93.41 Diabetes mellitus with neurological manifestations, uncontrolled E11.49; E11.65 Permanent atrial fibrillation I48.21 BPH with obstruction/lower urinary tract symptoms N40.1; N13.8 Dementia F03.90 PAD (peripheral artery disease) I73.9 Morbid obesity E66.01
[2022-08-27] MEDS: INSULIN ASPART PER UNIT CHARGE SC SCH ×4 (07:56→20:27)
[2022-08-27] MEDS: SERTRALINE HCL 50 MG TABLET PO SCH (08:02)
[2022-08-27] MEDS: APIXABAN 5 MG TABLET PO SCH ×2 (08:03→20:28)
[2022-08-27] MEDS: FINASTERIDE 5 MG TAB PO SCH (08:03)
[2022-08-27] MEDS: PANTOprazole 40 MG TAB PO SCH (08:03)
[2022-08-27] MEDS: hydrALAZINE TAB 50 MG TAB PO SCH ×4 (08:03→20:29)
[2022-08-27] MEDS: TAMSULOSIN HCL 0.4 MG CAP PO SCH (08:04)
[2022-08-27] MEDS: GLUCOSAMINE SULFATE 500 MG CAP PO SCH (08:04)
[2022-08-27] MEDS: FUROSEMIDE 40 MG TAB PO SCH (08:04)
[2022-08-27] MEDS: CHOLECALCIFEROL 5,000 UNITS 125 MCG TAB PO SCH (08:04)
[2022-08-27] MEDS: THIAMINE HCL 100 MG TAB PO SCH ×2 (08:04→20:28)
[2022-08-27] MEDS: DONEPEZIL HCL 10 MG TAB PO SCH (08:05)
[2022-08-27] MEDS: METOPROLOL SUCC 50MG EXT REL TAB PO SCH (08:05)
[2022-08-27] MEDS: ACETAMINOPHEN 500 MG TAB PO SCH ×3 (08:05→20:30)
[2022-08-27] MEDS: POLYETHYLENE (MIRALAX) 17 GM PACK PO SCH (08:05)
[2022-08-27] MEDS: LIDOCAINE 5% 1 PATCH TD SCH (08:06)
[2022-08-27] MEDS: VIBEGRON 75 MG TAB PO SCH (08:07)
[2022-08-27] MEDS: EMPAGLIFLOZIN 25 MG TAB PO SCH (08:07)
[2022-08-27] MEDS: DORZOLAMIDE HCL 2% OPH SOLN 10 ML BTL OPB SCH ×2 (08:12→20:31)
[2022-08-27] MEDS: amLODIPine BESYLATE 5 MG TAB PO SCH (08:50)
[2022-08-27] MEDS: MAGNESIUM CHLORIDE W/CALCIUM 64MG DELAYED REL TAB PO SCH (08:51)
[2022-08-27] MEDS: OLANZapine ZYDIS 5 MG ORALLY DIS. TAB PO SCH (20:29)
[2022-08-27] MEDS: LATANOPROST 0.005% OP SOLN 2.5 ML BTL OPB SCH (20:30)
[2022-08-27] MEDS: CLOPIDOGREL BISULFATE 75 MG TAB PO SCH (20:30)
[2022-08-27] MEDS: LANTUS PER UNIT CHARGE SQ SCH (20:36)
[2022-08-28] MEDS: LEVOTHYROXINE SODIUM 100 MCG TABLET PO SCH (05:44)
[2022-08-28] MEDS: TAMSULOSIN HCL 0.4 MG CAP PO SCH (07:55)
[2022-08-28] MEDS: APIXABAN 5 MG TABLET PO SCH ×2 (07:55→19:13)
[2022-08-28] MEDS: FINASTERIDE 5 MG TAB PO SCH (07:56)
[2022-08-28] MEDS: METOPROLOL SUCC 50MG EXT REL TAB PO SCH (07:56)
[2022-08-28] MEDS: DONEPEZIL HCL 10 MG TAB PO SCH (07:56)
[2022-08-28] MEDS: amLODIPine BESYLATE 5 MG TAB PO SCH ×4 (07:56→19:16)
[2022-08-28] MEDS: GLUCOSAMINE SULFATE 500 MG CAP PO SCH (07:57)
[2022-08-28] MEDS: FUROSEMIDE 40 MG TAB PO SCH (07:57)
[2022-08-28] MEDS: THIAMINE HCL 100 MG TAB PO SCH ×2 (07:58→19:11)
[2022-08-28] MEDS: SERTRALINE HCL 50 MG TABLET PO SCH (07:58)
[2022-08-28] MEDS: hydrALAZINE TAB 50 MG TAB PO SCH ×4 (07:58→19:12)
[2022-08-28] MEDS: PANTOprazole 40 MG TAB PO SCH (07:59)
[2022-08-28] MEDS: EMPAGLIFLOZIN 25 MG TAB PO SCH (07:59)
[2022-08-28] MEDS: CHOLECALCIFEROL 5,000 UNITS 125 MCG TAB PO SCH (07:59)
[2022-08-28] MEDS: MAGNESIUM CHLORIDE W/CALCIUM 64MG DELAYED REL TAB PO SCH (07:59)
[2022-08-28] MEDS: ACETAMINOPHEN 500 MG TAB PO SCH ×3 (08:00→19:14)
[2022-08-28] MEDS: LIDOCAINE 5% 1 PATCH TD SCH (08:01)
[2022-08-28] MEDS: DORZOLAMIDE HCL 2% OPH SOLN 10 ML BTL OPB SCH ×2 (08:01→19:13)
[2022-08-28] MEDS: VIBEGRON 75 MG TAB PO SCH (08:02)
[2022-08-28] MEDS: POLYETHYLENE (MIRALAX) 17 GM PACK PO SCH (08:02)
[2022-08-28] MEDS: INSULIN ASPART PER UNIT CHARGE SC SCH ×4 (08:16→20:59)
[2022-08-28 10:17] LABS: BUN Creatinine Ratio 17.2 (10-20); Calcium 9.5 mg/dl (8.6-10.3); Creatinine Clr Calc Pharmacy 29.6 ml/min; Est GFR (African American) 29.9 ml/min; Est GFR (Non-African American) 25.8 ml/min; Potassium 3.6 mmol/L (3.5-5.1)
[2022-08-28] MEDS: traMADol HCL 50 MG TABLET PO PRN (12:40)
--- NOTE | 2022-08-28 13:02 | Pharmacy Report ---
Pharmacy Glycemic Short Note 2 - Date of Service August 28, 2022 - Glycemic Short BSG Results (Last 24 hours): 08/27/22 08/27/22 08/28/22 16:31 20:17 07:34 Glucose POC Glucose 216 H 95 150 H 08/28/22 08/28/22 08:53 11:28 Glucose 166 H POC Glucose 218 H OUTPATIENT ANTIDIABETIC REGIMEN: * Tresiba 22 uints QPM * Novolog mix 70/30 70 units with breakfast, 60 units with dinner * Novolog SS * Jardiance 25mg * HbA1c 9.8% 06/19/22 ASSESSMENT: 08/28/22 * BSG's [phone] mg/dL throughout the day yesterday. Fasting BSG 150 mg/dL, and lunchtime value 210 mg/dL today. * Patient received 18 units of basal insulin and 26 units of bolus insulin yesterday. * Patient may benefit from a tightened CR. Overcorrection with tightened CF has been historically associated with subsequent hypoglycemia. 08/25/22 * Patient's BSGs yesterday were [phone] mg/dL. Patient received 36 units (22 units of Lantus and 14 units of Novolog). * Fasting today is 119 mg/dL. * Continue insulin as all BSGs within goal range. BACKGROUND * Mr. Petty is a 77 YOM admitted with shortness of breath, history of T2DM. Pharmacy is consulted for glycemic management while inpatient. * No glycemic stressors noted at this time * Patient has a complex home regimen with multiple SQ insulins. Estimated conversion of Novolin 70/30 to Lantus is 49 units with breakfast and 42 units with dinner. * Based on previous admissions with increased stressors, the patient's basal regimen was started conservatively substituting Tresiba home dose with Lantus 22 units. Continue with Lantus 22 units QPM * Will not add add in additional home basal from Novolog mix due to concerning lunch time low of 74. Estimated conversion of Novolin 70/30 to basal Lantus is 49 units with breakfast and 42 units with dinner. * Started Novolog at CF 20 CR 5 (successful regimen on previous admissions). Concern for overcorrection at breakfast, Novolog parameters loosened to a weight based stress of 2 with a CF of 25 and a CR of 8 PLAN FOR INPATIENT GLYCEMIC CONTROL: * Hold outpatient oral diabetes medications, but continue Jardiance 25mg QAM due to dual DM/CHF benefits. * Basal insulin * Lantus 20 units SQ QPM * Bolus insulin * NovoLog per scale ACHS or Q6hrs while NPO * Goal Range: Low 120 mg/dL - High 150 mg/dL * Correction Factor: 20 mg/dL/unit * Nutritional / Prandial insulin per carb ratio of 1 unit per 5 grams CHO consumed
[2022-08-28] MEDS: OLANZapine ZYDIS 5 MG ORALLY DIS. TAB PO SCH (19:15)
[2022-08-28] MEDS: LATANOPROST 0.005% OP SOLN 2.5 ML BTL OPB SCH (19:15)
--- NOTE | 2022-08-28 20:40 | Hospitalist Progress Note ---
Date of Service August 28, 2022 Assessment & Plan (1) Compression fracture of L1 lumbar vertebra: Plan: acute L1 fracture CT lumbar spine with "Acute to subacute L1 compression deformity with 3 mm retropulsion. No significant central canal stenosis." Pain controlled. TLSO brace has been delivered but patient is not wearing it when he gets up. PT, OT advise rehab post-d/c. cont Lidoderm patches prn cont Tylenol 1gm TID cont tramadol prn 25-OH vit D level >50 Right-sided rib fractures Ribs 7, 9, and 10 on CTA chest. with COPD and restrictive lung disease this initially caused shortness of breath at home prior to admission -- now resolved (2) Multiple fractures of ribs, right side, initial encounter for closed fracture: Plan: 7, 9, and 10 on CTA chest minimal to no pain symptomatic relief (3) Acute metabolic encephalopathy: Plan: resolved cont scheduled zyprexa ODT 5mg HS. additional 2.5mg of zyprexa prn at HS as well for uncontrolled agitation. reports that he has significant insomnia - often he is up much of the night; and he has periods of agitation at home as well cont zyprexa upon transition to SNF with ultimate goal of being off such (4) Diabetes mellitus with neurological manifestations, uncontrolled: Plan: controlled with basal-bolus regimen here. pharmacy glycemic team assistance appreciated. 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 cont aricept 10mg daily acute delirium on chronic dementia cont zyprexa HS scheduled as noted above thiamine level pending while pending has been placed on thiamine 200mg BID (8) PAD (peripheral artery disease): Plan: Cont plavix & eliquis (9) Morbid obesity: Plan: BMI 34 (10) Abdominal distension: Plan: chronic had same issue during 06/[address] a/p this admission without pathology cont bowel regimen (11) Hypertension: Plan: uncontrolled add night-time dose of amlodipine 2.5mg cont daytime with 5mg cont metoprolol succinate cont hydralazine 50mg qid cont lasix 40mg daily (12) CAD (coronary artery disease): Plan: no ischemic symptoms at this time cont plavix qod cont BB (13) COPD (chronic obstructive pulmonary disease): Plan: no flare at this time lungs clear (14) Chronic diastolic congestive heart failure, NYHA class 2: Plan: compensated cont BB cont lasix (15) Chronic renal failure (CRF), stage 3b: Plan: CrCl at baseline is just about 30 creatinine has been stable in the low 2's Admission and Anticipated Discharge Date Admission Date: August 23, 2022 Subjective no events feeling well asks when he can go home tele with [email or web address], rates <100 moving bowels eating well Review of Systems Review of Systems: cv - no cp, no orthopnea musculo - denies much back pain pulm - no dyspnea, no cough GI - no N/V Physical Exam Physical Exam: gen - NAD mouth - MMM heart - irregular, s1 s2, no murmur lungs - CTA b/l, no rales abd - distension unchanged; nontender; BS+, no HSM ext - no edema, pulses 2+ b/l Results & Data Results & Data Vital Signs (Past 12 Hours) Vital Signs Temp Pulse Resp BP Pulse Ox O2 Del Method 08/28/22 20:00 Room Air 08/28/22 16:28 36.5 C 77 16 133/78 93 Room Air 08/28/22 11:21 36.4 C L 82 20 164/95 H 94 Room Air Laboratory Results Laboratory Results - last 24 hr 08/28/22 08/28/22 08/28/22 07:34 08:53 11:28 Sodium 139 Potassium 3.6 Chloride 105 Carbon Dioxide 27 Anion Gap 7 BUN 40 H Creatinine 2.32 H Est Cr Clr Drug Dosing 29.6 Est GFR ( Amer) 29.9 Est GFR (Non-Af Amer) 25.8 BUN/Creatinine Ratio 17.2 Glucose 166 H POC Glucose 150 H 218 H Calcium 9.5 08/28/22 08/28/22 16:40 20:15 Sodium Potassium Chloride Carbon Dioxide Anion Gap BUN Creatinine Est Cr Clr Drug Dosing Est GFR ( Amer) Est GFR (Non-Af Amer) BUN/Creatinine Ratio Glucose POC Glucose 95 199 H Calcium PG Care Time/CCT Total # of Minutes Spent Total Time Spent with Patient: Total time spent is greater than 50% in coordination of care (as documented) at patient's floor/unit and/or counseling patient: Coding Level of Care Code 94878 SUB INP/OBS CARE Diagnoses Compression fracture of L1 lumbar vertebra S32.010A Multiple fractures of ribs, right side, initial encounter for closed fracture S22.41XA Acute metabolic encephalopathy G93.41 Diabetes mellitus with neurological manifestations, uncontrolled E11.49; E11.65 Permanent atrial fibrillation I48.21 BPH with obstruction/lower urinary tract symptoms N40.1; N13.8 Dementia F03.90 PAD (peripheral artery disease) I73.9 Morbid obesity E66.01 Abdominal distension R14.0 Hypertension I10 Hypertension type: essential hypertension CAD (coronary artery disease) I25.10 Coronary Disease-Associated Artery/Lesion type: [place] artery [place] vs. transplanted heart: [place] heart Associated angina: without angina COPD (chronic obstructive pulmonary disease) J44.9 Chronic diastolic congestive heart failure, NYHA class 2 I50.32 Chronic renal failure (CRF), stage 3b N18.32 (11) Hypertension Hypertension type: essential hypertension Qualified Code(s): I10 - Essential (primary) hypertension (12) CAD (coronary artery disease) Coronary Disease-Associated Artery/Lesion type: [place] artery [place] vs. transplanted heart: [place] heart Associated angina: without angina Qualified Code(s): I25.10 - Atherosclerotic heart disease of [place] coronary artery without angina pectoris
[2022-08-28] MEDS ORDERED: LANTUS PER UNIT CHARGE SQ SCH (21:00)
[2022-08-29] MEDS: LEVOTHYROXINE SODIUM 100 MCG TABLET PO SCH (05:43)
[2022-08-29] MEDS: THIAMINE HCL 100 MG TAB PO SCH ×2 (07:22→21:16)
[2022-08-29] MEDS: METOPROLOL SUCC 50MG EXT REL TAB PO SCH (07:22)
[2022-08-29] MEDS: GLUCOSAMINE SULFATE 500 MG CAP PO SCH (07:22)
[2022-08-29] MEDS: TAMSULOSIN HCL 0.4 MG CAP PO SCH (07:23)
[2022-08-29] MEDS: amLODIPine BESYLATE 5 MG TAB PO SCH ×2 (07:23→21:17)
[2022-08-29] MEDS: CHOLECALCIFEROL 5,000 UNITS 125 MCG TAB PO SCH (07:23)
[2022-08-29] MEDS: DONEPEZIL HCL 10 MG TAB PO SCH (07:23)
[2022-08-29] MEDS: MAGNESIUM CHLORIDE W/CALCIUM 64MG DELAYED REL TAB PO SCH (07:24)
[2022-08-29] MEDS: FINASTERIDE 5 MG TAB PO SCH (07:24)
[2022-08-29] MEDS: SERTRALINE HCL 50 MG TABLET PO SCH (07:24)
[2022-08-29] MEDS: PANTOprazole 40 MG TAB PO SCH (07:24)
[2022-08-29] MEDS: EMPAGLIFLOZIN 25 MG TAB PO SCH (07:24)
[2022-08-29] MEDS: FUROSEMIDE 40 MG TAB PO SCH (07:24)
[2022-08-29] MEDS: hydrALAZINE TAB 50 MG TAB PO SCH ×4 (07:25→21:16)
[2022-08-29] MEDS: VIBEGRON 75 MG TAB PO SCH (07:25)
[2022-08-29] MEDS: DORZOLAMIDE HCL 2% OPH SOLN 10 ML BTL OPB SCH ×2 (07:25→21:15)
[2022-08-29] MEDS: ACETAMINOPHEN 500 MG TAB PO SCH ×3 (07:26→21:11)
[2022-08-29] MEDS: APIXABAN 5 MG TABLET PO SCH ×2 (07:26→21:17)
[2022-08-29] MEDS: LIDOCAINE 5% 1 PATCH TD SCH (07:27)
[2022-08-29] MEDS: POLYETHYLENE (MIRALAX) 17 GM PACK PO SCH (07:27)
[2022-08-29] MEDS: INSULIN ASPART PER UNIT CHARGE SC SCH ×4 (08:24→21:22)
--- NOTE | 2022-08-29 13:42 | XRay Report ---
XR abdomen 2V w PA chest HISTORY: 77 years-old Male generalized abd pain; constipation?? Acute chest and abdominal pain with reported constipation COMPARISON: Chest radiograph, CTA of the chest and CT abdomen and pelvis 08/22/2022 TECHNIQUE: PA view the chest with erect and supine views of the abdomen FINDINGS: Cardiac silhouette is enlarged. No pneumothorax, pleural effusion, airspace consolidation or overt pu lmonary edema. Unchanged right hemidiaphragmatic elevation. There are a few subacute right-sided rib fractures again noted which appear unchanged. Nonobstructive bowel gas pattern. Gaseous distention of the colon with dilated loops measuring up to 6.7 cm transversely. Mild fecal retention of the ascending colon. Renal shadows obscured by bowel gas . No acute fracture identified. The acute subacute appearing L1 fracture again noted. IMPRESSION: 1. No acute processes of the chest. 2. Mild gaseous distention of the colon again noted with mild colonic fecal retention. 3. Acute to subacute appearing L1 compression deformity is again noted along with healing subacute ri ght-sided rib fractures. ACT 112: Negative or not required by law. The above report was generated using voice recognition software. It may contain grammatical, syntax o r spelling errors. Electronically signed by: Richi Hernandez M.D. 08/29/2022 1:40 PM
[2022-08-29] MEDS: traMADol HCL 50 MG TABLET PO PRN (14:02)
--- NOTE | 2022-08-29 19:59 | Hospitalist Progress Note ---
Date of Service August 29, 2022 Assessment & Plan (1) Abdominal distension: Plan: chronic had same issue during 06/2022 admission [facility] x-ray at that time with colonic dilatation as well CT a/p this admission without pathology he has been moving his bowels over the last few days without diarrhea or blood abdominal x-rays today again with mild colonic distension chronic colonic ileus / Robinson's type scenario? other? no signs/symptoms of sigmoid volvulus. last colonoscopy was in [address] Carrillo - multiple polyps resected ow wnl. due to the patient having pain will ask Dr Carrillo to see in am. is pain simply cramps from the distension? other? cont bowel regimen (2) Dilatation of colon: Plan: see above (3) Compression fracture of L1 lumbar vertebra: Plan: stable acute L1 fracture strength in legs has been wnl CT lumbar spine with "Acute to subacute L1 compression deformity with 3 mm retropulsion. No significant central canal stenosis." Pain controlled. TLSO brace has been delivered but patient is refusing to wear it. PT, OT advise rehab post-d/c. cont Lidoderm patches prn cont Tylenol 1gm TID cont tramadol prn 25-OH vit D level >50 (4) Multiple fractures of ribs, right side, initial encounter for closed fracture: Plan: 7, 9, and 10 on CTA chest minimal to no pain symptomatic relief prn (5) Acute metabolic encephalopathy: Plan: resolved cont scheduled zyprexa ODT 5mg HS. additional 2.5mg of zyprexa prn at HS as well for uncontrolled agitation. reports that he has significant insomnia - often he is up much of the night; and he has periods of agitation at home as well cont zyprexa upon transition to SNF with ultimate goal of being off such if possible (6) Diabetes mellitus with neurological manifestations, uncontrolled: Plan: controlled with basal-bolus regimen here. pharmacy glycemic team assistance appreciated. 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 cont aricept 10mg daily acute delirium on chronic dementia cont zyprexa HS scheduled as noted above thiamine level pending while pending has been placed on thiamine 200mg BID (10) PAD (peripheral artery disease): Plan: Cont plavix & eliquis (11) Morbid obesity: Plan: BMI 34 (12) Hypertension: Plan: uncontrolled - suspect due to periods of agitation did add night-time dose of amlodipine 2.5mg yesterday cont daytime with 5mg cont metoprolol succinate 100mg qam cont hydralazine 50mg qid cont lasix 40mg daily if BPs remain high would simply increase amlodipine to 5mg BID (13) CAD (coronary artery disease): Plan: no ischemic symptoms at this time cont plavix qod cont BB (14) COPD (chronic obstructive pulmonary disease): Plan: no flare at this time lungs clear (15) Chronic diastolic congestive heart failure, NYHA class 2: Plan: compensated cont BB cont lasix (16) Chronic renal failure (CRF), stage 3b: Plan: CrCl at baseline is just about 30 creatinine has been stable in the low 2's repeat BMP am Plan updated pt's at bedside also called her at home once xrays of abdomen had returned told her I would be consulting GI for any other recs I canceled his d/c to [facility] today if abdomen is wnl tomorrow and GI with no further recs hopefully can d/c on Sunday Admission and Anticipated Discharge Date Admission Date: August 23, 2022 Subjective tele overnight with maggie, rates <100 patient reports eating good breakfast (nearly all of it) and then after breakfast had moderate sized, formed stool (nurses saw the stool) after having the BM he developed generalized abdominal cramps and pain these symptoms persisted until the lunch hour and he actually skipped lunch due to the pain I saw him shortly after lunch-time and his was at bedside despite the abdominal pain he reported no nausea or emesis Review of Systems Review of Systems: cv - no cp, no orthopnea pulm - no dyspnea GI - no nausea/emesis/blood per rectum musculo - denies back pain today; denies rib pain Physical Exam Physical Exam: gen - NAD, sitting in chair comfortably neck - no JVD mouth - MMM heart - irregular, s1 s2, no murmur; rate <100 lungs - CTA b/l, no rales abd - distension unchanged or scantly worse; mild tenderness in various locations but no peritoneal signs; BS+, no HSM ext - no edema, pulses 2+ b/l psych - awake/alert Results & Data Results & Data Vital Signs (Past 12 Hours) Vital Signs Temp Pulse Pulse Resp BP BP Pulse Ox 08/29/22 19:44 36.5 C 73 20 164/87 H 95 08/29/22 16:16 36.8 C 111 H 18 141/88 H 95 08/29/22 11:14 36.4 C L 82 22 125/72 95 O2 Del Method O2 Flow Rate 08/29/22 19:44 Room Air 08/29/22 16:16 Nasal Cannula 2 08/29/22 11:14 Room Air Laboratory Results Laboratory Results - last 24 hr 08/28/22 08/29/22 08/29/22 20:15 07:30 11:25 POC Glucose 199 H 90 159 H SARS-CoV-2, RNA, NAAT 08/29/22 08/29/22 11:30 16:23 POC Glucose 164 H SARS-CoV-2, RNA, NAAT NEGATIVE Diagnostic Findings Abdomen/Pelvis CT 08/22/22 13:44 CT abd pelvis IV con only CLINICAL HISTORY: tense abdominal distension, generalized abd pain TECHNIQUE: Helical axial images of the abdomen and pelvis were obtained and displayed. Automated dose lowering techniques and/or adjustment according to patient size were utilized for this exam. This exam was performed with intravenous contrast. COMPARISON: Comparison is made to CT abdomen pelvis 03/13/2018 FINDINGS: Lower chest: Cardiomegaly is partially visualized. Moderate atherosclerotic disease is seen. Liver: Unremarkable. No focal lesions are seen. Gallbladder and biliary tree: No calcified gallstones. Normal caliber wall. No intra- or extrahepatic biliary ductal dilation. Pancreas: Unremarkable, no focal lesions. Spleen: Unremarkable. Adrenals: Unremarkable. Kidneys and ureters: Renal cysts are seen. Bladder: Unremarkable. Reproductive organs: Unremarkable. Bowel: The appendix is normal. Lymph nodes Retroperitoneal: Unremarkable. Pelvic: Unremarkable. Mesenteric: Unremarkable. Peritoneum: Normal. Vessels: Atherosclerotic calcifications are seen. Abdominal wall: Unremarkable. Bones: Degenerative changes in the visualized spine. Grade 1 anterolisthesis is seen at L5-S1 with bilateral pars defects. IMPRESSION: No acute abnormalities to explain abdominal pain. In particular no evidence of bowel obstruction. ACT 112: Negative or not required by law. Electronically signed by: Daniel Mathur M.D. 08/22/2022 3:12 PM Chest/Abdomen X-ray 08/29/22 12:24 XR abdomen 2V w PA chest HISTORY: 77 years-old Male generalized abd pain; constipation?? Acute chest and abdominal pain with reported constipation COMPARISON: Chest radiograph, CTA of the chest and CT abdomen and pelvis 08/22/2022 TECHNIQUE: PA view the chest with erect and supine views of the abdomen FINDINGS: Cardiac silhouette is enlarged. No pneumothorax, pleural effusion, airspace consolidation or overt pulmonary edema. Unchanged right hemidiaphragmatic elevation. There are a few subacute right-sided rib fractures again noted which appear unchanged. Nonobstructive bowel gas pattern. Gaseous distention of the colon with dilated loops measuring up to 6.7 cm transversely. Mild fecal retention of the ascending colon. Renal shadows obscured by bowel gas. No acute fracture identified. The acute subacute appearing L1 fracture again noted. IMPRESSION: 1. No acute processes of the chest. 2. Mild gaseous distention of the colon again noted with mild colonic fecal retention. 3. Acute to subacute appearing L1 compression deformity is again noted along with healing subacute right-sided rib fractures. ACT 112: Negative or not required by law. The above report was generated using voice recognition software. It may contain grammatical, syntax or spelling errors. Electronically signed by: Richi Hernandez M.D. 08/29/2022 1:40 PM PG Care Time/CCT Total # of Minutes Spent Total Time Spent with Patient: Total time spent is greater than 50% in coordination of care (as documented) at patient's floor/unit and/or counseling patient: Coding Level of Care Code 48129 SUB INP/OBS CARE 3/50MIN Diagnoses Abdominal distension R14.0 Dilatation of colon K59.39 Compression fracture of L1 lumbar vertebra S32.010A Multiple fractures of ribs, right side, initial encounter for closed fracture S22.41XA Acute metabolic encephalopathy G93.41 Diabetes mellitus with neurological manifestations, uncontrolled E11.49; E11.65 Permanent atrial fibrillation I48.21 BPH with obstruction/lower urinary tract symptoms N40.1; N13.8 Dementia F03.90 PAD (peripheral artery disease) I73.9 Morbid obesity E66.01 Hypertension I10 Hypertension type: essential hypertension CAD (coronary artery disease) I25.10 Coronary Disease-Associated Artery/Lesion type: [place] artery [place] vs. transplanted heart: [place] heart Associated angina: without angina COPD (chronic obstructive pulmonary disease) J44.9 Chronic diastolic congestive heart failure, NYHA class 2 I50.32 Chronic renal failure (CRF), stage 3b N18.32 (12) Hypertension Hypertension type: essential hypertension Qualified Code(s): I10 - Essential (primary) hypertension (13) CAD (coronary artery disease) Coronary Disease-Associated Artery/Lesion type: [place] artery [place] vs. transplanted heart: [place] heart Associated angina: without angina Qualified Code(s): I25.10 - Atherosclerotic heart disease of [place] coronary artery without angina pectoris
[2022-08-29] MEDS: LATANOPROST 0.005% OP SOLN 2.5 ML BTL OPB SCH (21:15)
[2022-08-29] MEDS: OLANZapine ZYDIS 5 MG ORALLY DIS. TAB PO SCH (21:16)
[2022-08-29] MEDS: CLOPIDOGREL BISULFATE 75 MG TAB PO SCH (21:18)
[2022-08-29] MEDS: LANTUS PER UNIT CHARGE SQ SCH (21:28)
[2022-08-30] MEDS: LEVOTHYROXINE SODIUM 100 MCG TABLET PO SCH (06:04)
[2022-08-30] MEDS: POLYETHYLENE (MIRALAX) 17 GM PACK PO SCH ×2 (08:06→20:21)
[2022-08-30] MEDS: GLUCOSAMINE SULFATE 500 MG CAP PO SCH (08:10)
[2022-08-30] MEDS: MAGNESIUM CHLORIDE W/CALCIUM 64MG DELAYED REL TAB PO SCH (08:10)
[2022-08-30] MEDS: SERTRALINE HCL 50 MG TABLET PO SCH (08:10)
[2022-08-30] MEDS: TAMSULOSIN HCL 0.4 MG CAP PO SCH (08:11)
[2022-08-30] MEDS: FUROSEMIDE 40 MG TAB PO SCH (08:11)
[2022-08-30] MEDS: PANTOprazole 40 MG TAB PO SCH (08:11)
[2022-08-30] MEDS: METOPROLOL SUCC 50MG EXT REL TAB PO SCH (08:11)
[2022-08-30] MEDS: FINASTERIDE 5 MG TAB PO SCH (08:11)
[2022-08-30] MEDS: THIAMINE HCL 100 MG TAB PO SCH ×2 (08:11→20:34)
[2022-08-30] MEDS: CHOLECALCIFEROL 5,000 UNITS 125 MCG TAB PO SCH (08:11)
[2022-08-30] MEDS: DONEPEZIL HCL 10 MG TAB PO SCH (08:11)
[2022-08-30] MEDS: EMPAGLIFLOZIN 25 MG TAB PO SCH (08:11)
[2022-08-30] MEDS: hydrALAZINE TAB 50 MG TAB PO SCH ×4 (08:11→20:34)
[2022-08-30] MEDS: APIXABAN 5 MG TABLET PO SCH ×2 (08:12→20:34)
[2022-08-30] MEDS: ACETAMINOPHEN 500 MG TAB PO SCH ×3 (08:12→20:39)
[2022-08-30] MEDS: VIBEGRON 75 MG TAB PO SCH (08:14)
[2022-08-30 08:15] LABS: Hematocrit (blood only) 48.3 % (42.0-52.0); Hemoglobin 16.3 g/dl (14.0-18.0); Mean Corpuscular Hemoglobin 28.3 pg (25.0-34.0); Mean Corpuscular Hgb Conc 33.7 g/dL (32.0-36.0); Mean Platelet Volume 9.2 fL (9.4-12.4); Platelet Count 278 K/uL (130-400); RDW Coefficient of Variation 15.1 % (11.5-14.5); RDW Standard Deviation 45.9 fL (36.4-46.3); Red Blood Count 5.75 M/uL (4.70-6.10); White Blood Count 7.95 K/ul (4.8-10.8)
[2022-08-30 08:47] LABS: BUN Creatinine Ratio 15.3 (10-20); Calcium 9.3 mg/dl (8.6-10.3); Est GFR (African American) 33.9 ml/min; Est GFR (Non-African American) 29.2 ml/min; Magnesium 2.1 mg/dl (1.7-2.4)
[2022-08-30] MEDS: INSULIN ASPART PER UNIT CHARGE SC SCH ×4 (08:58→20:21)
--- NOTE | 2022-08-30 09:17 | Gastrointestinal Consultation ---
Date of Consultation August 30, 2022 Assessment & Plan (1) Dilatation of colon: Discussed case with Dr. Carrillo. His abdominal pain and distention may be a component of constipation. He tells me that his symptoms do feel better after he moves his bowels but feels he still needs to move his bowels after a bowel movement. May be due to limited mobility. mild fecal retention on most recent KUB. imaging otherwise has been unremarkable. - increase miralax to 17gm bid. - Can follow up as an outpatient in GI office. Supervising Physician Co-Signing Physician Notes Agree with FREDDY Quezada as above Abd: Soft, NT, ND, +BS Continue current therapy and supportive care Increased Miralax to 17g BID in 8 oz glass of water History of Present Illness Reason for Consultation: chronic colonic ileus? tristian? other? Requesting Physician: Colten Basurto MD Attending Physician: Aman Cannon MD History of Present Illness 77 year old male admitted 08/22/22 with complaints of SOB/back pain. GI asked to see today due to abdominal pain and distention. Patient tells me that he has had these symptoms for the past few days. pain mostly in lower abdomen. feels like a pressure. rated 7/10. He tells me that he feels like he needs to move his bowels more and describes as not feeling like he is completely evacuating stools. He does admit that pain and distention feels better after he moves his bowels. He tells me he is having about 1 bowel movement a day. Today he was sitting along his bed side and eating breakfast and tells me he feels fairly well. CT 08/22/22 fat stranding at hepatic flexure which may represent omental infarct/epiploic appendagitis. KUB 08/29/22 mild gaseous distention of colon with mild fecal retention. he denies any nausea, vomiting, dysphagia, heartburn, blood in stools, or melena. colonoscopy 2019 four 5-14mm colon polyps, nonbleeding internal hemorrhoids. Allergies Allergy/AdvReac Type Severity Reaction Status Date / Time Penicillins Allergy Severe FACIAL Verified 08/22/22 11:06 SWELLING AND RASH amoxicillin Allergy Intermediate RASH Verified 08/22/22 11:06 clavulanic acid Allergy Intermediate RASH Verified 08/22/22 11:06 cholestyramine Allergy Unknown per nephro Verified 08/22/22 11:06 note niacin Allergy Unknown per nephro Verified 08/22/22 11:06 note phenylephrine Allergy Unknown per nephro Verified 08/22/22 11:06 note Nvzocja-ZEI-QuR Reductase Allergy Unknown JOINT Verified 08/22/22 11:06 Inhibitor STIFFNESS [Licnngd-Qgd-Vqi Reductase AND PAIN Inhibitor] azithromycin Allergy PER NEPHRO Verified 08/22/22 11:06 NOTE Home Medications Medication Instructions Recorded Confirmed Type dorzolamide 2 % eye drops (Trusopt) 1 drp OPB BID 03/13/18 08/22/22 History glucosamine sulfate 500 mg tablet 2 tabs PO QAM 03/13/18 08/22/22 History (Glucosamine) latanoprost 0.005 % eye drops 1 drp OPB PM 03/13/18 08/22/22 History (Xalatan) magnesium chloride 64 mg 64 mg PO QAM 03/13/18 08/22/22 History (magnesium chloride) tablet,delayed release (Mag 64) nitroglycerin 0.4 mg sublingual 0.4 mg sublingual UD PRN Chest 03/12/19 08/22/22 Rx tablet (Nitrostat) Pain #1 btl OneTouch UltraSoft Lancets #400 ea 05/23/19 08/08/22 Rx (lancets) insulin syringe-needle U-100 0.5 #300 ea 08/13/19 08/08/22 Rx mL 31 gauge x 5/16" (BD Insulin Syringe Ultra-Fine) ipratropium 0.5 mg-albuterol 3 mg 3 ml inhalation Q8H PRN shortness 10/04/20 08/22/22 Rx (2.5 mg base)/3 mL nebulization of breath or wheezing #180 mL soln nebulizers (Aeroneb Go Nebulizer) #1 ea 10/04/20 08/08/22 Rx budesonide 0.25 mg/2 mL suspension 0.25 mg inhalation BID PRN 09/28/21 08/22/22 History for nebulization Shortness Of Breath Or Wheezing albuterol sulfate 90 mcg/actuation 2 puff inhalation DAILY PRN 12/29/21 08/22/22 Rx aerosol inhaler (Ventolin HFA) shortness of breath or wheezing #8.5 grams metoprolol succinate 100 mg 100 mg PO QAM #90 tabs 01/02/22 08/22/22 Rx tablet,extended release 24 hr BD Ultra-Fine Short Pen Needle 31 #100 ea 01/17/22 08/08/22 Rx gauge x 5/16" (pen needle, diabetic) clopidogrel 75 mg tablet 75 mg PO Q2D #45 tabs 01/17/22 08/22/22 Rx hydralazine 50 mg tablet 100 mg PO QID 90 days #720 tabs 01/17/22 08/22/22 Rx blood sugar diagnostic (OneTouch #400 ea 01/23/22 08/08/22 Rx Ultra Test strips) insulin degludec 100 unit/mL (3 22 unit (0.22 mL) subcut QPM #15 mL 03/23/22 08/22/22 Rx mL) subcutaneous pen (Tresiba FlexTouch U-100 insulin) potassium chloride 20 mEq 20 meq PO QAM PRN Muscle Cramps 03/30/22 08/22/22 Rx tablet,extended release from Lasix #60 tabs furosemide 40 mg tablet 40 mg PO .COMPLEX Edema #240 tabs 04/13/22 08/22/22 Rx fluticasone fur. 100 mcg-umeclid 1 inh inhalation DAILY #60 ea 04/24/22 08/22/22 Rx 62.5 mcg-vilant 25 mcg inhalat.powder (Trelegy Ellipta) apixaban 5 mg tablet (Eliquis) 5 mg PO BID #180 tabs 04/28/22 08/22/22 Rx empagliflozin 25 mg tablet 25 mg PO DAILY #90 tabs 05/04/22 08/22/22 Rx finasteride 5 mg tablet 5 mg PO DAILY #90 tabs 05/09/22 08/22/22 Rx tamsulosin 0.4 mg capsule 0.4 mg PO DAILY #90 caps 05/09/22 08/22/22 Rx donepezil 10 mg tablet 10 mg PO QAM #90 tabs 05/29/22 08/22/22 Rx pantoprazole 40 mg tablet,delayed 40 mg PO DAILY #90 tabs 06/05/22 08/22/22 Rx release vibegron 75 mg tablet (Gemtesa) 75 mg PO DAILY #30 tabs 06/07/22 08/22/22 Rx Novolog Mix 70-30 FlexPen U-100 See Rx Instructions .Route 06/28/22 08/22/22 Rx Insulin 100 unit/mL subcutaneous .COMPLEX 90 days #45 mL pen (insulin asp prt-insulin aspart) insulin aspart U-100 100 unit/mL See Rx Instructions subcut 08/04/22 08/22/22 Rx (3 mL) subcutaneous pen (Novolog .COMPLEX #15 mL FlexPen U-100 Insulin aspart) cholecalciferol (vitamin D3) 125 125 mcg PO DAILY 08/08/22 08/22/22 History mcg (5,000 unit) capsule levothyroxine 100 mcg tablet 100 mcg PO DAILY 08/08/22 08/22/22 History sertraline 100 mg tablet 150 mg PO DAILY 90 days #135 tabs 08/14/22 08/22/22 Rx methylprednisolone 4 mg tablets in See Rx Instructions .Route 08/21/22 08/22/22 Rx a dose pack (Medrol (Andrea)) .COMPLEX #21 ea evolocumab 140 mg/mL subcutaneous 140 mg subcut WK 08/22/22 08/22/22 History pen injector (Genoveva Bello) Patient History Medical History Acute diastolic CHF (congestive heart failure) Alzheimer disease on donepezil Anticoagulant long-term use Atrial fibrillation metoprolol/apixaban Bladder cancer 2014--sx Bladder cancer BPH (benign prostatic hyperplasia) BPH with obstruction/lower urinary tract symptoms CAD (coronary artery disease) follows with Dr. Motley Cancer of skin of back removed Cancer of skin of left ear removed CHF (congestive heart failure) Chronic kidney disease, stage III (moderate) follows with Dr. Joseph COPD (chronic obstructive pulmonary disease) Degenerative disc disease Depression (Unknown) Diabetes mellitus, type II, insulin dependent Diabetic nephropathy Diabetic peripheral neuropathy Diabetic retinopathy, nonproliferative, mild Diabetic ulcer of toe of left foot WALL (dyspnea on exertion) Dysphagia causing pulmonary aspiration with swallowing GERD (gastroesophageal reflux disease) Glaucoma Hearing deficit History of colon polyps History of restrictive lung disease Hyperlipidemia Hypertension Leaking of urine On home O2 2 LPM PRN Surgical History H/O heart artery stent (2015) 2012 x 1 2015 x 3 2017 x 1 ( showed severe 99 % mid RCA in stent restenoses which was treated with drug-eluting stent) History of bilateral cataract extraction History of bladder surgery 2014 bladder tumor removal @ [facility] History of cardiac cath x3--2011, 2014, 2017 @ [facility] History of colonoscopy History of skin surgery removal of basal cell carcinoma from L side of face, 08/24/[address] Velazquez History of tonsillectomy and adenoidectomy Family History Mother Family history of diabetes mellitus COPD (chronic obstructive pulmonary disease) Lung cancer Father Family history of diabetes mellitus Acute appendicitis Brother Hx of CABG Myocardial infarction Sister Heart disease Myocardial infarction Other Coronary heart disease Denies family history of Ovarian cancer Prostate cancer Kidney disease Breast cancer Colorectal cancer Social History Smoking Status: Former smoker Tobacco Type: Cigarettes Age Started Using Tobacco: 14; Age Quit Using Tobacco: 29; packs per day: 1; Second Hand Exposure: No; Hx Alcohol Use: No Hx Substance Use: No Preferred Language: Bots[place]an Communication Ability: Effective Visual Impairment: No Limitations Hearing Ability: Hard of Hearing Leather Dresser Required: No Beliefs That Will Affect Care: None marital status: Current Living Situation: Spouse current occupational status: retired 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 Feels Safe at Home: Yes Safety Concerns: Feels Safe At This Time Childhood Exposure to Second-Hand Smoke: Yes caffeine: Yes Dental Care, Regularly: No Physical Activity Frequency: Does not Exercise Seatbelt Use: always Sunscreen Use: No Assistive Devices: Cane, Oxygen - Continuous and Walker Review of Systems Review of Systems: All systems reviewed & are unremarkable except as noted in HPI & below Physical Exam Constitutional: WD/WN, vitals as above Respiratory: normal respiratory effort, lungs clear to auscultation Cardiovascular: RRR, no murmur, no edema Gastrointestinal (Abdomen): abdomen distended. nontender. normal bowel sounds. Skin: no rashes, warm and dry Psychiatric: Orientation: alert and oriented x 3 Affect: euthymic affect Results & Data Vital Signs (Past 12 Hours) Vital Signs Temp Pulse Resp BP Pulse Ox O2 Del Method 08/30/22 07:40 Room Air 08/30/22 07:40 97.7 F 77 18 154/83 H 95 Room Air 08/29/22 23:27 Room Air PG Care Time/CCT Total # of Minutes Spent Total Time Spent with Patient: Total time spent is greater than 50% in coordination of care (as documented) at patient's floor/unit and/or counseling patient: Coding Level of Care Code 87165 INT INP/OBS CARE 2/55MIN Diagnoses Dilatation of colon K59.39 Time Spent (min) 62
[2022-08-30] MEDS: LIDOCAINE 5% 1 PATCH TD SCH (12:38)
[2022-08-30] MEDS: DORZOLAMIDE HCL 2% OPH SOLN 10 ML BTL OPB SCH ×2 (12:38→20:33)
--- NOTE | 2022-08-30 14:34 | Pharmacy Report ---
Pharmacy Glycemic Short Note 2 - Date of Service August 30, 2022 - Glycemic Short BSG Results (Last 24 hours): 08/29/22 08/29/22 08/30/22 16:23 20:32 07:49 Glucose 145 H POC Glucose 164 H 89 08/30/22 08/30/22 07:49 11:43 Glucose POC Glucose 137 H 260 H OUTPATIENT ANTIDIABETIC REGIMEN: * Tresiba 22 uints QPM * Novolog mix 70/30 70 units with breakfast, 60 units with dinner * Novolog SS * Jardiance 25mg * HbA1c 9.8% 06/19/22 ASSESSMENT: 08/29: * Yesterday, BSG's recorded at [phone] mg/dL. * Fasting today 137 mg/dL. Patient received 18 units of Lantus at bedtime last night. * Lunchtime BSG today 260 mg/dL. Although elevated, this is an outlier among all prandial BSG's since admission. Priority currently remains to prevent hypoglycemia events until patient demonstrates a more certain requirement for tightened NovoLog parameters. 08/28/22 * BSG's [phone] mg/dL throughout the day yesterday. Fasting BSG 150 mg/dL, and lunchtime value 210 mg/dL today. * Patient received 18 units of basal insulin and 26 units of bolus insulin yesterday. * Patient may benefit from a tightened CR. Overcorrection with tightened CF has been historically associated with subsequent hypoglycemia. 08/25/22 * Patient's BSGs yesterday were [phone] mg/dL. Patient received 36 units (22 units of Lantus and 14 units of Novolog). * Fasting today is 119 mg/dL. * Continue insulin as all BSGs within goal range. BACKGROUND * Mr. Petty is a 77 YOM admitted with shortness of breath, history of T2DM. Pharmacy is consulted for glycemic management while inpatient. * No glycemic stressors noted at this time * Patient has a complex home regimen with multiple SQ insulins. Estimated conversion of Novolin 70/30 to Lantus is 49 units with breakfast and 42 units with dinner. * Based on previous admissions with increased stressors, the patient's basal regimen was started conservatively substituting Tresiba home dose with Lantus 22 units. Continue with Lantus 22 units QPM * Will not add add in additional home basal from Novolog mix due to concerning lunch time low of 74. Estimated conversion of Novolin 70/30 to basal Lantus is 49 units with breakfast and 42 units with dinner. * Started Novolog at CF 20 CR 5 (successful regimen on previous admissions). Concern for overcorrection at breakfast, Novolog parameters loosened to a weight based stress of 2 with a CF of 25 and a CR of 8 PLAN FOR INPATIENT GLYCEMIC CONTROL: * Hold outpatient oral diabetes medications, but continue Jardiance 25mg QAM due to dual DM/CHF benefits. * Basal insulin * Lantus 18 units SQ QPM * Bolus insulin * NovoLog per scale ACHS or Q6hrs while NPO * Goal Range: Low 120 mg/dL - High 150 mg/dL * Correction Factor: 20 mg/dL/unit * Nutritional / Prandial insulin per carb ratio of 1 unit per 5 grams CHO consumed
--- NOTE | 2022-08-30 17:40 | Hospitalist Progress Note ---
Date of Service August 30, 2022 Assessment & Plan (1) Abdominal distension: Plan: chronic and intermittent. No obstruction on x-rays. GI consultation and recommendations appreciated. Continue current bowel regimen (2) Compression fracture of L1 lumbar vertebra: Plan: stable acute L1 fracture , probably from recent fall. No weakness in either leg. CT lumbar spine with "Acute to subacute L1 compression deformity with 3 mm retropulsion. No significant central canal stenosis." Pain control measures. TLSO brace has been delivered but patient is refusing to wear it. Cont Lidoderm patches prn , cont Tylenol 1gm TID , cont tramadol prn (3) Multiple fractures of ribs, right side, initial encounter for closed fracture: Plan: 7, 9, and 10 on CTA chest . Minimal to no pain. Supportive care (4) Acute metabolic encephalopathy: Plan: resolved. Was present on admission. Taking Zyprexa at bedtime (5) Diabetes mellitus with neurological manifestations, uncontrolled: Plan: ADA diet. Sliding scale coverage. Continue current medical management. HbA1C 9.8% in 06/2022 (6) Permanent atrial fibrillation: Plan: stable with controlled rates . Cont metoprolol and Eliquis (7) BPH with obstruction/lower urinary tract symptoms: Plan: cont finasteride and tamsulosin. Follows with [facility] for h/o bladder ca (Dr Paulson) (8) Dementia: Plan: 2nd Alzheimer's. Supportive care. Continue Aricept and Zyprexa. (9) PAD (peripheral artery disease): Plan: Cont plavix & eliquis (10) Morbid obesity: Plan: BMI 34. Weight loss recommended (11) Hypertension: Plan: Improved after addition of amlodipine. Continue metoprolol, hydralazine, Lasix. (12) CAD (coronary artery disease): Plan: Stable. Continue current medical management (13) COPD (chronic obstructive pulmonary disease): Plan: Stable. Continue current medical management (14) Chronic diastolic congestive heart failure, NYHA class 2: Plan: Stable. Continue current medical management. Monitor intake and output (15) Chronic renal failure (CRF), stage 3b: Plan: Stable. Monitor intake and output. Serial labs Plan Anticipate discharge to [facility], hopefully tomorrow, August 31 Admission and Anticipated Discharge Date Admission Date: August 23, 2022 Subjective Alert and oriented. is at the bedside. Bowel sounds are active but his abdomen is distended. Nontender however. GI consultation noted and appreciated. The abdominal distention problem is chronic and intermittent. Case management notified that he has been medically cleared for discharge to SNF when arrangements are finalized. Review of Systems Review of Systems: Constitutional-no fever or chills ENT-no blurred vision, no double vision, no epistaxis, no sore throat Respiratory-no cough, no wheezing, no shortness of breath Cardiac-no palpitations, no chest pain, no syncope GI-no nausea, vomiting, diarrhea, melena, hematochezia. His abdomen is distended however -no urinary retention, no urinary incontinence, no dysuria, no hematuria Musculoskeletal-no joint pain, no muscle tenderness Skin-no bruising, no rashes, no pruritus Neuro-no isolated weakness, no paresthesia, no weakness Psych-no depression, no anxiety Physical Exam Physical Exam: General-alert and oriented x3, no fevers, no chills HEENT-head atraumatic and normocephalic, pupils equal and reactive to light, extraocular muscles intact Neck-no lymphadenopathy or thyromegaly, trachea midline Chest-clear to auscultation percussion. No rales wheezing or rhonchi Cardiac-regular rate and rhythm, normal S1 and S2, no murmurs Abdomen-normal bowel sounds, nontender, no hepatosplenomegaly. Distention noted Extremities-no cyanosis, clubbing, or edema Neuro-cranial nerves II through XII intact, motor and sensory function within normal limits, strength symmetrical , no focal deficits Psych-normal affect, normal mood Results & Data Results & Data Vital Signs (Past 12 Hours) Vital Signs Temp Pulse Resp BP BP Pulse Ox O2 Del Method 08/30/22 16:00 36.6 C 74 18 118/65 94 Room Air 08/30/22 07:40 Room Air 08/30/22 07:40 36.5 C 77 18 154/83 H 95 Room Air Laboratory Results 08/30/22 07:49 08/30/22 07:49 PG Care Time/CCT Total # of Minutes Spent Total Time Spent with Patient: Total time spent is greater than 50% in coordination of care (as documented) at patient's floor/unit and/or counseling patient: Coding Level of Care Code 58172 SUB INP/OBS CARE 3/50MIN Diagnoses Abdominal distension R14.0 Compression fracture of L1 lumbar vertebra S32.010A Multiple fractures of ribs, right side, initial encounter for closed fracture S22.41XA Acute metabolic encephalopathy G93.41 Diabetes mellitus with neurological manifestations, uncontrolled E11.49; E11.65 Permanent atrial fibrillation I48.21 BPH with obstruction/lower urinary tract symptoms N40.1; N13.8 Dementia F03.90 PAD (peripheral artery disease) I73.9 Morbid obesity E66.01 Hypertension I10 Hypertension type: essential hypertension CAD (coronary artery disease) I25.10 Coronary Disease-Associated Artery/Lesion type: [place] artery [place] vs. transplanted heart: [place] heart Associated angina: without angina COPD (chronic obstructive pulmonary disease) J44.9 Chronic diastolic congestive heart failure, NYHA class 2 I50.32 Chronic renal failure (CRF), stage 3b N18.32 (11) Hypertension Hypertension type: essential hypertension Qualified Code(s): I10 - Essential (primary) hypertension (12) CAD (coronary artery disease) Coronary Disease-Associated Artery/Lesion type: [place] artery [place] vs. t ransplanted heart: [place] heart Associated angina: without angina Qualified Code(s): I25.10 - Atherosclerotic heart disease of [place] coronary artery without angina pectoris
[2022-08-30] MEDS: LATANOPROST 0.005% OP SOLN 2.5 ML BTL OPB SCH (20:33)
[2022-08-30] MEDS: amLODIPine BESYLATE 5 MG TAB PO SCH (20:33)
[2022-08-30] MEDS: OLANZapine ZYDIS 5 MG ORALLY DIS. TAB PO SCH (20:34)
[2022-08-30] MEDS: LANTUS PER UNIT CHARGE SQ SCH (20:40)
[2022-08-31] MEDS: LEVOTHYROXINE SODIUM 100 MCG TABLET PO SCH (06:23)
[2022-08-31] MEDS ORDERED: LANTUS PER UNIT CHARGE SQ ONE (08:00)
[2022-08-31] MEDS: POLYETHYLENE (MIRALAX) 17 GM PACK PO SCH (08:03)
[2022-08-31] MEDS: ACETAMINOPHEN 500 MG TAB PO SCH (08:07)
[2022-08-31] MEDS: hydrALAZINE TAB 50 MG TAB PO SCH ×2 (08:09→12:29)
[2022-08-31] MEDS: THIAMINE HCL 100 MG TAB PO SCH (08:10)
[2022-08-31] MEDS: APIXABAN 5 MG TABLET PO SCH (08:11)
[2022-08-31] MEDS: amLODIPine BESYLATE 5 MG TAB PO SCH (08:12)
[2022-08-31] MEDS: MAGNESIUM CHLORIDE W/CALCIUM 64MG DELAYED REL TAB PO SCH (08:13)
[2022-08-31] MEDS: GLUCOSAMINE SULFATE 500 MG CAP PO SCH (08:14)
[2022-08-31] MEDS: EMPAGLIFLOZIN 25 MG TAB PO SCH (08:14)
[2022-08-31] MEDS: SERTRALINE HCL 50 MG TABLET PO SCH (08:15)
[2022-08-31] MEDS: CHOLECALCIFEROL 5,000 UNITS 125 MCG TAB PO SCH (08:16)
[2022-08-31] MEDS: PANTOprazole 40 MG TAB PO SCH (08:17)
[2022-08-31] MEDS: TAMSULOSIN HCL 0.4 MG CAP PO SCH (08:17)
[2022-08-31] MEDS: DONEPEZIL HCL 10 MG TAB PO SCH (08:18)
[2022-08-31] MEDS: FINASTERIDE 5 MG TAB PO SCH (08:19)
[2022-08-31] MEDS: FUROSEMIDE 40 MG TAB PO SCH (08:20)
[2022-08-31] MEDS: METOPROLOL SUCC 50MG EXT REL TAB PO SCH (08:21)
[2022-08-31] MEDS: VIBEGRON 75 MG TAB PO SCH (08:22)
[2022-08-31] MEDS: DORZOLAMIDE HCL 2% OPH SOLN 10 ML BTL OPB SCH (08:23)
[2022-08-31] MEDS: INSULIN ASPART PER UNIT CHARGE SC SCH ×2 (08:43→12:28)
[2022-08-31] MEDS: LIDOCAINE 5% 1 PATCH TD SCH (08:49)
--- NOTE | 2022-08-31 09:48 | Pharmacy Report ---
Pharmacy Glycemic Short Note 2 - Date of Service August 31, 2022 - Glycemic Short BSG Results (Last 24 hours): 08/30/22 08/30/22 08/30/22 11:43 16:50 20:10 POC Glucose 260 H 101 H 67 L* 08/30/22 08/31/22 21:34 07:40 POC Glucose 91 234 H OUTPATIENT ANTIDIABETIC REGIMEN: * Tresiba 22 uints QPM * Novolog mix 70/30 70 units with breakfast, 60 units with dinner * Novolog SS * Jardiance 25mg * HbA1c 9.8% 06/19/22 ASSESSMENT: 08/31: * Patient received 38 units of insulin yesterday, no basal, held for HS BSG of 67mg/dl - now fasting AM sugar is 234mg/dl - will give smaller one time dose this AM to make up for completely held dose, and reduce dose starting tonight, also loosen CR to prevent further hypoglycemia. 08/29: * Yesterday, BSG's recorded at [phone] mg/dL. * Fasting today 137 mg/dL. Patient received 18 units of Lantus at bedtime last night. * Lunchtime BSG today 260 mg/dL. Although elevated, this is an outlier among all prandial BSG's since admission. Priority currently remains to prevent hypoglycemia events until patient demonstrates a more certain requirement for tightened NovoLog parameters. 08/28/22 * BSG's [phone] mg/dL throughout the day yesterday. Fasting BSG 150 mg/dL, and lunchtime value 210 mg/dL today. * Patient received 18 units of basal insulin and 26 units of bolus insulin yesterday. * Patient may benefit from a tightened CR. Overcorrection with tightened CF has been historically associated with subsequent hypoglycemia. 08/25/22 * Patient's BSGs yesterday were [phone] mg/dL. Patient received 36 units (22 units of Lantus and 14 units of Novolog). * Fasting today is 119 mg/dL. * Continue insulin as all BSGs within goal range. BACKGROUND * Mr. Petty is a 77 YOM admitted with shortness of breath, history of T2DM. Pharmacy is consulted for glycemic management while inpatient. * No glycemic stressors noted at this time * Patient has a complex home regimen with multiple SQ insulins. Estimated conversion of Novolin 70/30 to Lantus is 49 units with breakfast and 42 units with dinner. * Based on previous admissions with increased stressors, the patient's basal regimen was started conservatively substituting Tresiba home dose with Lantus 22 units. Continue with Lantus 22 units QPM * Will not add add in additional home basal from Novolog mix due to concerning lunch time low of 74. Estimated conversion of Novolin 70/30 to basal Lantus is 49 units with breakfast and 42 units with dinner. * Started Novolog at CF 20 CR 5 (successful regimen on previous admissions). Concern for overcorrection at breakfast, Novolog parameters loosened to a weight based stress of 2 with a CF of 25 and a CR of 8 PLAN FOR INPATIENT GLYCEMIC CONTROL: * Hold outpatient oral diabetes medications, but continue Jardiance 25mg QAM due to dual DM/CHF benefits. * Basal insulin * Lantus 10 units SQ x1 this AM to make up for dose completely held last night * decrease - Lantus 16 units SQ QPM * Bolus insulin * NovoLog per scale ACHS or Q6hrs while NPO * Goal Range: Low 110 mg/dL - High 150 mg/dL * Correction Factor: 20 mg/dL/unit * loosen-Nutritional / Prandial insulin per carb ratio of 1 unit per 6 grams CHO consumed
--- NOTE | 2022-08-31 11:16 | Hospitalist Progress Note ---
Date of Service August 31, 2022 Assessment & Plan (1) Abdominal distension: Plan: chronic and intermittent. No obstruction on x-rays. GI consultation and recommendations appreciated. Continue current bowel regimen (2) Compression fracture of L1 lumbar vertebra: Plan: stable acute L1 fracture , probably from recent fall. No weakness in either leg. CT lumbar spine with "Acute to subacute L1 compression deformity with 3 mm retropulsion. No significant central canal stenosis." Pain control measures. TLSO brace has been delivered but patient is refusing to wear it. Cont Lidoderm patches prn , cont Tylenol 1gm TID , cont tramadol prn (3) Multiple fractures of ribs, right side, initial encounter for closed fracture: Plan: 7, 9, and 10 on CTA chest . Minimal to no pain. Supportive care (4) Acute metabolic encephalopathy: Plan: resolved. Was present on admission. Taking Zyprexa at bedtime (5) Diabetes mellitus with neurological manifestations, uncontrolled: Plan: ADA diet. Sliding scale coverage. Continue current medical management. HbA1C 9.8% in 06/2022 (6) Permanent atrial fibrillation: Plan: stable with controlled rates . Cont metoprolol and Eliquis (7) BPH with obstruction/lower urinary tract symptoms: Plan: cont finasteride and tamsulosin. 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 Supportive care. Continue Aricept and Zyprexa. (9) PAD (peripheral artery disease): Plan: Cont plavix & eliquis (10) Morbid obesity: Plan: BMI 34. Weight loss recommended (11) Hypertension: Plan: Improved after addition of amlodipine. Continue metoprolol, hydralazine, Lasix. (12) CAD (coronary artery disease): Plan: Stable. Continue current medical management (13) COPD (chronic obstructive pulmonary disease): Plan: Stable. Continue current medical management (14) Chronic diastolic congestive heart failure, NYHA class 2: Plan: Stable. Continue current medical management. Monitor intake and output (15) Chronic renal failure (CRF), stage 3b: Plan: Stable. Monitor intake and output. Serial labs Plan Anticipate discharge to [place] care when arrangements are finalized Admission and Anticipated Discharge Date Admission Date: August 23, 2022 Subjective Alert and oriented. Medically stable. No new problems. He is moving his bowels. There is no nausea or vomiting. Hopefully we can discharge him to [facility] later today, August 31 Review of Systems Review of Systems: Constitutional-no fever or chills ENT-no blurred vision, no double vision, no epistaxis, no sore throat Respiratory-no cough, no wheezing, no shortness of breath Cardiac-no palpitations, no chest pain, no syncope GI-no nausea, vomiting, diarrhea, melena, hematochezia. His abdomen is distended however -no urinary retention, no urinary incontinence, no dysuria, no hematuria Musculoskeletal-no joint pain, no muscle tenderness Skin-no bruising, no rashes, no pruritus Neuro-no isolated weakness, no paresthesia, no weakness Psych-no depression, no anxiety Physical Exam Physical Exam: General-alert and oriented x3, no fevers, no chills HEENT-head atraumatic and normocephalic, pupils equal and reactive to light, extraocular muscles intact Neck-no lymphadenopathy or thyromegaly, trachea midline Chest-clear to auscultation percussion. No rales wheezing or rhonchi Cardiac-regular rate and rhythm, normal S1 and S2, no murmurs Abdomen-normal bowel sounds, nontender, no hepatosplenomegaly. Distention noted Extremities-no cyanosis, clubbing, or edema Neuro-cranial nerves II through XII intact, motor and sensory function within normal limits, strength symmetrical , no focal deficits Psych-normal affect, normal mood Results & Data Results & Data Vital Signs (Past 12 Hours) Vital Signs Temp Pulse Pulse Resp BP Pulse Ox O2 Del Method 08/31/22 10:55 36.8 C 81 16 121/75 94 Room Air 08/31/22 07:26 36.6 C 75 18 179/78 H 90 Room Air Laboratory Results 08/30/22 07:49 08/30/22 07:49 PG Care Time/CCT Total # of Minutes Spent Total Time Spent with Patient: Total time spent is greater than 50% in coordination of care (as documented) at patient's floor/unit and/or counseling patient: Coding Level of Care Code 69937 SUB INP/OBS CARE 2/35MIN Diagnoses Abdominal distension R14.0 Compression fracture of L1 lumbar vertebra S32.010A Multiple fractures of ribs, right side, initial encounter for closed fracture S22.41XA Acute metabolic encephalopathy G93.41 Diabetes mellitus with neurological manifestations, uncontrolled E11.49; E11.65 Permanent atrial fibrillation I48.21 BPH with obstruction/lower urinary tract symptoms N40.1; N13.8 Dementia F03.90 PAD (peripheral artery disease) I73.9 Morbid obesity E66.01 Hypertension I10 Hypertension type: essential hypertension CAD (coronary artery disease) I25.10 Coronary Disease-Associated Artery/Lesion type: [place] artery [place] vs. transplanted heart: zuni heart Associated angina: without angina COPD (chronic obstructive pulmonary disease) J44.9 Chronic diastolic congestive heart failure, NYHA class 2 I50.32 Chronic renal failure (CRF), stage 3b N18.32 (11) Hypertension Hypertension type: essential hypertension Qualified Code(s): I10 - Essential (primary) hypertension (12) CAD (coronary artery disease) Coronary Disease-Associated Artery/Lesion type: [place] artery [place] vs. transplanted heart: zuni heart Associated angina: without angina Qualified Code(s): I25.10 - Atherosclerotic heart disease of zuni coronary artery without angina pectoris
--- NOTE | 2022-08-31 11:40 | Discharge Summary ---
Date of Service August 31, 2022 Admission HPI Per Admitting Provider Ramses Petty is a 77 year old male who presents to the ER with shortness of breath. He reports this has been going on for the last 2 weeks since he had a sudden onset back pain. He had an outpatient lumbar spine XR for this which showed no fracture. Since that time he has been eating less and becoming progressively more short of breath on exertion. No fever, chills, sinus pain or sore throat. Nasal congestion present for the last 2 days. He has a non- productive cough but no worse than usual. He does not weight himself therefore unclear if his weight has gone up but he does reports his abdominal distention is much worse than usual and bilateral leg edema has increased. No BM for the last 2 days. No nausea, vomiting, melena or hematochezia. He was prescribed a Medrol Dosepak for his back pain yesterday by his PCP but reports he has not taken any of this yet. Principal Diagnosis Mechanical fall with multiple right rib fractures and L1 compression fracture, transient metabolic encephalopathy, chronic abdominal distention without obstruction Discharge Exam General-alert and oriented x3, no fevers, no chills HEENT-head atraumatic and normocephalic, pupils equal and reactive to light, extraocular muscles intact Neck-no lymphadenopathy or thyromegaly, trachea midline Chest-clear to auscultation percussion. No rales wheezing or rhonchi Cardiac-regular rate and rhythm, normal S1 and S2, no murmurs Abdomen-normal bowel sounds, nontender, no hepatosplenomegaly. Distention noted Extremities-no cyanosis, clubbing, or edema Neuro-cranial nerves II through XII intact, motor and sensory function within normal limits, strength symmetrical , no focal deficits Psych-normal affect, normal mood Discharge Data Allergies Allergy/AdvReac Type Severity Reaction Status Date / Time Penicillins Allergy Severe FACIAL Verified 08/22/22 11:06 SWELLING AND RASH amoxicillin Allergy Intermediate RASH Verified 08/22/22 11:06 clavulanic acid Allergy Intermediate RASH Verified 08/22/22 11:06 cholestyramine Allergy Unknown per nephro Verified 08/22/22 11:06 note niacin Allergy Unknown per nephro Verified 08/22/22 11:06 note phenylephrine Allergy Unknown per nephro Verified 08/22/22 11:06 note Jepgzsl-OMZ-UbY Reductase Allergy Unknown JOINT Verified 04/11/23 11:06 Inhibitor STIFFNESS [Prxoweg-Ooa-Cil Reductase AND PAIN Inhibitor] azithromycin Allergy PER NEPHRO Verified 08/22/22 11:06 NOTE Consultations 08/22/22 11:40 ED Decision to Admit Stat 08/29/22 14:16 Consult Gastroenterology Routine Ordered Studies 08/22/22 13:44 CT Abd and Pelvis [CT abd pelvis IV con only] Stat CT for pulmonary embolism PE [CT angio chest PE protocol] Stat CT lumbar spine w con Stat 08/23/22 17:[address] [CT head/brain wo con] Urgent Hospital Course (1) Abdominal distension: chronic and intermittent. No obstruction on x-rays. GI consultation and recommendations appreciated. Continue current bowel regimen (2) Compression fracture of L1 lumbar vertebra: stable acute L1 fracture , probably from recent fall. No weakness in either leg. CT lumbar spine with "Acute to subacute L1 compression deformity with 3 mm retropulsion. No significant central canal stenosis." Pain control measures. TLSO brace has been delivered but patient is refusing to wear it. Cont Lidoderm patches prn , cont Tylenol 1gm TID , cont tramadol prn (3) Multiple fractures of ribs, right side, initial encounter for closed fracture: 7, 9, and 10 on CTA chest . Minimal to no pain. Supportive care (4) Acute metabolic encephalopathy: resolved. Was present on admission. Taking Zyprexa at bedtime (5) Diabetes mellitus with neurological manifestations, uncontrolled: ADA diet. Sliding scale coverage. Continue current medical management. HbA1C 9.8% in 06/2022 (6) Permanent atrial fibrillation: stable with controlled rates . Cont metoprolol and Eliquis (7) BPH with obstruction/lower urinary tract symptoms: cont finasteride and tamsulosin. Follows with [facility] for h/o bladder ca (Dr Paulson) (8) Dementia: 2nd Alzheimer's. Supportive care. Continue Aricept and Zyprexa. (9) PAD (peripheral artery disease): Cont plavix & eliquis (10) Morbid obesity: BMI 34. Weight loss recommended (11) Hypertension: Improved after addition of amlodipine. Continue metoprolol, hydralazine, Lasix. (12) CAD (coronary artery disease): Stable. Continue current medical management (13) COPD (chronic obstructive pulmonary disease): Stable. Continue current medical management (14) Chronic diastolic congestive heart failure, NYHA class 2: Stable. Continue current medical management. Monitor intake and output (15) Chronic renal failure (CRF), stage 3b: Stable. Monitor intake and output. Serial labs Plan Discharge to [facility] today, August 31 Total Time Total Time Spent Total Time Spent (In Minutes): 40 minutes Discharge Plan Discharge Items Patient Disposition: Transfer Group Home Fac Reason For Visit: SHORTNESS OF BREATH Discharge Diagnosis: Mechanical fall with multiple right rib fractures and L1 compression fracture, metabolic encephalopathy, chronic intermittent abdominal distention Activity: Resume your previous activity Non-emergency contact: Primary Care Provider Call non-emergency contact if: you have any medication questions Follow-up/Referrals: Bon Macias MD [Primary Care Provider] - Diet: Regular and Heart Healthy Addtl Attending Provider Instructions: All medications remain the same Pending Studies at Discharge: No Stand-Alone Forms: My [facility], Virtual Emergency Department, Important Visit Information Skilled Items Patient informed of condition?: Yes DNR: Yes Discharge Level of Care: Skilled Communicable Disease: No Discharge Prognosis: Stable Lines: None Urinary Catheter: No Medications and DC Order Prescriptions: New tramadol 50 mg Tablet 50 mg PO Q6H PRN (Reason: pain) Qty: 20 0RF polyethylene glycol 3350 [Miralax] 17 gram Powder In Packet 17 g PO BID Qty: 0 0RF insulin glargine [Lantus U-100 Insulin] 100 unit/mL Solution 16 unit subcut HS Qty: 0 0RF hydralazine 50 mg Tablet 50 mg PO QID Qty: 0 0RF lidocaine 5 % Adhesive Patch,Medicated 3 patch transdermal QAM Qty: 0 0RF furosemide 40 mg Tablet 40 mg PO QAM Qty: 0 0RF thiamine HCl (vitamin B1) 100 mg Tablet 200 mg PO BID Qty: 0 0RF olanzapine 5 mg Tablet,Disintegrating 5 mg PO HS Qty: 0 0RF amlodipine [Norvasc] 5 mg Tablet 5 mg PO QAM Qty: 0 0RF amlodipine [Norvasc] 5 mg Tablet 2.5 mg PO HS Qty: 0 0RF Continued (DME) insulin syringe-needle U-100 [BD Insulin Syringe Ultra-Fine] 0.5 mL 31 gauge x 5/16" syringe See Rx Instructions .ROUTE .MEDSUPPLY Qty: 300 3RF Rx Instructions: Three times a day metoprolol succinate 100 mg tablet extended release 24 hr 100 mg PO QAM Qty: 90 3RF clopidogrel 75 mg tablet 75 mg PO Q2D Qty: 45 3RF Rx Instructions: Even Days, at bedtime. (DME) pen needle, diabetic [BD Ultra-Fine Short Pen Needle] 31 gauge x 5/16" needle See Rx Instructions .ROUTE .MEDSUPPLY Qty: 100 3RF Rx Instructions: One daily hydralazine 50 mg tablet 100 mg PO QID 90 Days Qty: 720 3RF (DME) OneTouch Ultra Test Strip See Rx Instructions .Route Qty: 400 3RF Rx Instructions: Test blood sugars 4 times a day insulin degludec [Tresiba FlexTouch U-100] 100 unit/mL (3 mL) insulin pen 22 unit SQ QPM Qty: 15 3RF potassium chloride 20 mEq tablet extended release 20 meq PO QAM PRN (Reason: Muscle Cramps from Lasix) Qty: 60 2RF Rx Instructions: TAKES ON DAYS YOU TAKE FUROSEMIDE furosemide 40 mg tablet 40 mg PO .COMPLEX Qty: 240 3RF Rx Instructions: 40 mg PO; <239 lb.furosemide 40 mg 240-245furosemide 60 mg >245furosemide 80 mg Trelegy Ellipta 100-62.5-25 mcg blister with device 1 inh inhalation DAILY Qty: 60 5RF Eliquis 5 mg tablet 5 mg PO BID Qty: 180 3RF tamsulosin 0.4 mg capsule 0.4 mg PO DAILY Qty: 90 1RF finasteride 5 mg tablet 5 mg PO DAILY Qty: 90 1RF donepezil 10 mg tablet 10 mg PO QAM Qty: 90 3RF pantoprazole 40 mg tablet,delayed release (DR/EC) 40 mg PO DAILY Qty: 90 3RF Gemtesa 75 mg tablet 75 mg PO DAILY Qty: 30 5RF insulin aspart U-100 [Novolog FlexPen U-100 Insulin] 100 unit/mL (3 mL) insulin pen See Rx Instructions subcut .COMPLEX MDD 15 U/day Qty: 15 6RF Rx Instructions: Use if needed for very high blood glucose. If Glucose over 200, and the last insulin injection was more than 2 hours earlier, may give 1 unit for each 25 points over 200. sertraline 100 mg tablet 150 mg PO DAILY 90 Days Qty: 135 3RF nitroglycerin [Nitrostat] 0.4 mg tablet, sublingual 0.4 mg Sublingual UD PRN (Reason: Chest Pain) Qty: 1 5RF Rx Instructions: TAKES 1 TAB UNDER TONGUE EVERY 5 MINUTES NEEDED albuterol sulfate [Ventolin HFA] 90 mcg/actuation HFA aerosol inhaler 2 puff inhalation DAILY PRN (Reason: shortness of breath or wheezing) Qty: 8.5 4RF Rx Instructions: INHALE ONE PUFF BY MOUTH EVERY 6 HOURS NEEDED for shortness of breath or wheezing empagliflozin 25 mg tablet 25 mg PO DAILY Qty: 90 3RF levothyroxine 100 mcg tablet 100 mcg PO DAILY cholecalciferol (vitamin D3) 125 mcg (5,000 unit) capsule 125 mcg PO DAILY ipratropium-albuterol 0.5 mg-3 mg(2.5 mg base)/3 mL solution for nebulization 3 ml inhalation Q8H PRN (Reason: shortness of breath or wheezing) Qty: 180 4RF (DME) Aeroneb Go Nebulizer Misc See Rx Instructions .MEDSUPPLY Qty: 1 0RF Rx Instructions: With tubing and supplies. J44.9. J45.9. (DME) lancets [OneTouch UltraSoft Lancets] Mis See Rx Instructions .ROUTE .MEDSUPPLY Qty: 400 3RF Rx Instructions: Test blood sugar four times a day budesonide 0.25 mg/2 mL suspension for nebulization 0.25 mg inhalation BID PRN (Reason: Shortness Of Breath Or Wheezing) latanoprost [Xalatan] 0.005 % Drops 1 drp OPB PM glucosamine sulfate [Glucosamine] 500 mg Tablet 2 tabs PO QAM dorzolamide [Trusopt] 2 % Drops 1 drp OPB BID Mag 64 64 mg Tablet,Delayed Release (Dr/Ec) 64 mg PO QAM insulin asp prt-insulin aspart [Novolog Mix 70-30FlexPen U-100] 100 unit/mL (70-30) insulin pen See Rx Instructions .ROUTE .COMPLEX 90 Days Qty: 45 5RF Rx Instructions: 70 units with breakfast; 60 units with dinner/evening meal. Repatha SureClick 140 mg/mL pen injector 140 mg subcut WK Rx Instructions: Inject every other week Discontinued methylprednisolone [Medrol (Andrea)] 4 mg tablets,dose pack See Rx Instructions .Route .COMPLEX Qty: 21 0RF Rx Instructions: ORDERED 08/17/22, HAS NOT PICKED UP FROM PHARMACY. NOT STARTED. Take per package directions; Discharge Orders: Discharge Order (Routine); Ordered 08/31/22 Ordered By: Aman Maharaj/Other Patient Handouts: 5 Steps for Eating Healthier Admission Data Admit Date/Time: 08/23/22 16:29 Attending Provider: Aman Cannon Admit Provider: Colten Wilson Primary Care Provider: Bon Macias Other Providers: Colten Wilson ; [place],[facility] ; Case,Brian Garrett Coding Level of Care Code 83489 INP/OBS DISCH >30 MIN Diagnoses Abdominal distension R14.0 Compression fracture of L1 lumbar vertebra S32.010A Multiple fractures of ribs, right side, initial encounter for closed fracture S22.41XA Acute metabolic encephalopathy G93.41 Diabetes mellitus with neurological manifestations, uncontrolled E11.49; E11.65 Permanent atrial fibrillation I48.21 BPH with obstruction/lower urinary tract symptoms N40.1; N13.8 Dementia F03.90 PAD (peripheral artery disease) I73.9 Morbid obesity E66.01 Hypertension I10 Hypertension type: essential hypertension CAD (coronary artery disease) I25.10 Coronary Disease-Associated Artery/Lesion type: [place] artery [place] vs. transplanted heart: [place] heart Associated angina: without angina COPD (chronic obstructive pulmonary disease) J44.9 Chronic diastolic congestive heart failure, NYHA class 2 I50.32 Chronic renal failure (CRF), stage 3b N18.32
[2022-08-31] MEDS ORDERED: LANTUS PER UNIT CHARGE SQ SCH (21:00)
== END 2022-08-31 13:35 | DRG 183 ==
LOC: 2N 09:09 → ED 09:09 → SUATTDRO 12:31 → 2N 15:24 → SUATTDRO 08-23 16:29

== ENCOUNTER 2023-08-22 08:46 | Observation (INO) ==
--- NOTE | 2023-08-22 09:25 | XRay Report ---
XR chest 1V portable CLINICAL HISTORY: Chest pain, nonspecific COMPARISON STUDY: Chest CT August 22, 2002. Chest radiograph August 29, 2022. FINDINGS: Lung volumes are mildly diminished. No pneumothorax or pleural effusion is present. Moderat e cardiomegaly is unchanged. There is mild interstitial thickening with possible mild bilateral airsp saleem opacities. IMPRESSION: Interstitial thickening with possible mild bilateral airspace opacities. The findings cou ld reflect mild pulmonary edema or an infectious process. Radiographic follow-up to ensure resolution is recommended. ACT 112: Negative or not required by law. Electronically signed by: Dangelo Farfan M.D. 08/22/2023 9:24 AM
[2023-08-22] MEDS: SODIUM CHLORIDE 0.9% 500 ML IV ONE (09:44)
[2023-08-22 09:59] LABS: Base Excess VBG 7.3 mEq/L; HCO3 VBG 34 mmol/L; Oxygen Saturation VBG < 60.0 %; PCO2 VBG 58 mmHg (38-50); PO2 VBG 30 mmHg; pH VBG 7.38 (7.36-7.41)
[2023-08-22 10:07] LABS: Basophils # (auto) 0.09 K/uL (0.00-0.20); Basophils % (auto) 0.6 %; Eosinophils # (auto) 0.31 K/uL (0.00-0.50); Eosinophils % (auto) 1.9 %; Hematocrit (blood only) 47.6 % (42.0-52.0); Hemoglobin 14.9 g/dl (14.0-18.0); Immature Granulocytes # (auto) 0.07 K/uL (0.01-0.20); Immature Granulocytes % (auto) 0.4 %; Lymphocytes # (auto) 0.72 K/uL (1.20-3.40); Lymphocytes % (auto) 4.5 %; Mean Corpuscular Hemoglobin 27.4 pg (25.0-34.0); Mean Corpuscular Hgb Conc 31.3 g/dL (32.0-36.0); Mean Corpuscular Volume 87.7 fL (80.0-100.0); Mean Platelet Volume 9.7 fL (9.4-12.4); Monocytes % (auto) 6.3 %; Neutrophils # (auto) 13.74 K/uL (1.40-6.50); Neutrophils % (auto) 86.3 %; Platelet Count 208 K/uL (130-400); RDW Coefficient of Variation 15.9 % (11.5-14.5); RDW Standard Deviation 50.4 fL (36.4-46.3); Red Blood Count 5.43 M/uL (4.70-6.10); White Blood Count 15.93 K/ul (4.8-10.8)
--- NOTE | 2023-08-22 10:12 | Emergency Department Note ---
Impression & Plan Syncope, Pneumonia, Dementia, UTI (urinary tract infection) ED Provider Note NAME: JAMIE CANO AGE: 78 SEX: M : 1945 ARRIVES VIA: Ambulance INFORMANT: Patient ED PROVIDER(S): Yeison Mistry MD CHIEF COMPLAINT: Syncope, ?seizure episode PLAN: Disposition: Admit MEDICAL DECISION MAKING: The patient is a pleasant 78-year-old gentleman with a past medical history of dementia, bladder cancer, urinary retention with chronic indwelling Lomeli catheter, diabetes, COPD on home oxygen, 3 L nasal cannula daily, hyperlipidemia, atrial fibrillation on Eliquis who presents to the emergency department via EMS from his penitentiary facility at [facility] after there was question of having a seizure-like episode. The patient's symptoms occur in the setting of being noted to have hypoglycemia this morning in the 50s and was given crackers but no BSG was rechecked patient subsequently was walking with a skilled nursing case manager when he lost consciousness and was suspected to have seizure- like activity. The patient was noted to have bitten his tongue. At this time he was given 1 mg of glucagon and BSG was not rechecked until EMS arrival prior to the hospital. No prior history of seizures. Patient's son reports that the patient had been more fatigued recently and while his baseline communication is limited in the setting of his dementia they felt as though he was speaking less. On my evaluation the patient is pleasantly confused in no acute distress, afebrile with stable vital signs. Appears clinically dry. He has diminished breath sounds of bilateral lower lung sharma. He is moving all extremities equally without focal motor deficits. EKG suspect atrial ectopic rhythm and otherwise without overt acute ischemia. CXR demonstrates interstitial thickening with possible bilateral airspace opacities which given the context with leukocytosis per below is suspicious for pneumonia. WBC 15.9K with neutrophilia but no left shift. H/H and platelets within normal limits. VBG with normal pH though mildly elevated CO2 of 58 in the setting of chronic respiratory failure secondary to COPD. Creatinine is 2.07, similar to prior in the setting of history of CKD. Lactic acid 1.5, within normal limits. LFTs unremarkable. Electrolytes unremarkable. Head CT troponin 14, within normal limits. Lipase is not elevated. Procalcitonin is not elevated. TSH within normal limits. The patient's Lomeli catheter was exchanged and upon collection of new sample is suggestive of UTI with positive nitrite, WBCs and minimal epithelial cells though no bacteria. Respiratory viral panel/Bio[employer] was negative. Cultures obtained. Treatment initiated with IV cefepime and Flagyl for UTI and also pneumonia possible occult aspiration given dementia. MRSA swab pending. CT of the head was negative for acute abnormalities. Given the patient's decline in mental status in the setting of suspected pneumonia and urinary tract infection patient's son does agree with plan for admission for further management. Case was discussed with NITA Guillermo PAC, with NITA Joseph hospitalist who will evaluate the patient for admission. Further management per admitting team. Triage Nursing notes reviewed and agree them. Prior/external medical records reviewed Vital Signs: reviewed Differential diagnosis: Vasovagal event, dehydration, infection, hypoglycemia, electrolyte abnormalities, cardiac sources, intracerebral event, pulmonary embolism, seizure, toxicologic, neurologic, as well as other pathologies. ER treatment provided: See below. Diagnostics interpreted by me: ECG: Suspect atrial ectopic rhythm, 107 bpm, no overt ST ovation or depression, QTc 467, QRS 72 Cardiac Monitoring: An order for continuous cardiac monitoring was placed and demonstrated Suspect atrial ectopic rhythm, 107 bpm. Laboratory studies: See below Imaging studies: See below Consultation(s): NITA Guillermo PAC, with NITA Joseph hospitalist HPI: The patient is a pleasant 78-year-old gentleman with a past medical history of dementia, bladder cancer, urinary retention with chronic indwelling Lomeli catheter, diabetes, COPD on home oxygen, 3 L nasal cannula daily, hyperlipidemia, atrial fibrillation on Eliquis who presents to the emergency department via EMS from his penitentiary facility at [facility] after there was question of having a seizure-like episode. The patient's symptoms occur in the setting of being noted to have hypoglycemia this morning in the 50s and was given crackers but no BSG was rechecked patient subsequently was walking with a skilled nursing case manager when he lost consciousness and was suspected to have seizure- like activity. The patient was noted to have bitten his tongue. At this time he was given 1 mg of glucagon and BSG was not rechecked until EMS arrival prior to the hospital. No prior history of seizures. Patient's son reports that the patient had been more fatigued recently and while his baseline communication is limited in the setting of his dementia they felt as though he was speaking less. ROS: See above HPI for pertinent positives & negatives. A total of 10 systems reviewed and were otherwise negative. VITALS:See Below PHYSICAL EXAMINATION: GENERAL: Awake, alert, pleasantly confused, fatigued-appearing, in no distress HENT: Normocephalic, atraumatic. Oropharynx with dry mucous membranes and otherwise unremarkable. EYES: Normal conjunctiva. Sclera non-icteric. NECK: Supple. No nuchal rigidity. FROM. No JVD. RESPIRATORY: Diminished breath sounds of bilateral lower lung sharma. CARDIAC: Regular rate, normal rhythm. Extremities warm and well perfused. Pulses equal. ABDOMEN: Soft, non-distended. No tenderness to palpation. No rebound or guarding. No masses. MUSCULOSKELETAL: Chest examination reveals no tenderness. The back is symmetrical on inspection without obvious abnormality. There is no CVA tenderness to palpation. No joint edema. LOWER EXTREMITIES: Calves are equal size bilaterally and non-tender. No edema. No discoloration. NEURO: Confusion with limited conversation/speech at baseline for dementia. No focal sensory or motor deficits noted. SKIN: No rash or jaundice noted. Yeison Mistry MD Past Med/Surg History Medical History Atrial fibrillation metoprolol/apixaban Dementia Dilatation of colon Acute metabolic encephalopathy Multiple fractures of ribs, right side, initial encounter for closed fracture Compression fracture of L1 lumbar vertebra Back pain PAD (peripheral artery disease) Traumatic open wound of lower leg History of restrictive lung disease Chronic systolic CHF (congestive heart failure) Chronic renal failure (CRF), stage 3b OLIVER (acute kidney injury) Diabetes mellitus type 2, uncontrolled Rhabdomyolysis Pneumonia due to COVID-19 virus COVID Acute respiratory failure with hypoxia Diabetic ulcer of right foot Traumatic open wound of right lower leg Diabetic ulcer of toe of left foot associated with type 2 diabetes mellitus, limited to breakdown of skin Leaking of urine BPH with obstruction/lower urinary tract symptoms Diabetic ulcer of toe of left foot Chronic diastolic congestive heart failure, NYHA class 2 Bladder cancer COPD exacerbation Dysphagia WALL (dyspnea on exertion) On home O2 2 LPM PRN COPD (chronic obstructive pulmonary disease) CAD (coronary artery disease) follows with Dr. Motley BPH (benign prostatic hyperplasia) Permanent atrial fibrillation Depression (Unknown) CAD (coronary artery disease) Tracheomalacia Resting tremor Exertional shortness of breath Morbid obesity Restrictive lung disease Chronic kidney disease, stage III (moderate) follows with Dr. Opal WALL (dyspnea on exertion) Bronchospasm Acute diastolic CHF (congestive heart failure) Anticoagulant long-term use Diabetes mellitus with neurological manifestations, uncontrolled Diabetes mellitus, type II, insulin dependent Diabetic nephropathy Diabetic peripheral neuropathy Diabetic retinopathy, nonproliferative, mild Dysphagia causing pulmonary aspiration with swallowing Glaucoma Hyperlipidemia Hypertension Odynophagia Degenerative disc disease History of colon polyps GERD (gastroesophageal reflux disease) Cancer of skin of left ear removed Cancer of skin of back removed Bladder cancer 2014--sx Hearing deficit Alzheimer disease on donepezil Surgical History History of skin surgery removal of basal cell carcinoma from L side of face, 08/24/[address] Velazquez History of colonoscopy History of bladder surgery 2014 bladder tumor removal @ [facility] History of tonsillectomy and adenoidectomy History of bilateral cataract extraction History of cardiac cath x3--2011, 2014, 2016 @ [facility] H/O heart artery stent (2015) 2011 x 1 2014 x 3 2017 x 1 ( showed severe 99 % mid RCA in stent restenoses which was treated with drug-eluting stent) Family History Mother Family history of diabetes mellitus COPD (chronic obstructive pulmonary disease) Lung cancer Father Family history of diabetes mellitus Acute appendicitis Brother Hx of CABG Myocardial infarction Sister Heart disease Myocardial infarction Other Coronary heart disease Denies family history of Ovarian cancer Prostate cancer Kidney disease Breast cancer Colorectal cancer Social History Smoking Status: Former smoker Tobacco Type: Cigarettes Age Started Using Tobacco: 14; Age Quit Using Tobacco: 29; packs per day: 1; Second Hand Exposure: No; Do You Dip or Chew Tobacco: No (used to chew tobacco, no longer does ); Hx Alcohol Use: No Hx Substance Use: No Preferred Language: Urdu Communication Ability: Impaired Visual Impairment: Limited Hearing Ability: Hard of Hearing Division Order Analyst Required: No Beliefs That Will Affect Care: None marital status: Current Living Situation: [place] current occupational status: retired 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 Feels Safe at Home: Yes Childhood Exposure to Second-Hand Smoke: Yes Diet: diabetic and ideal protein caffeine: Yes Dental Care, Regularly: No Physical Activity Frequency: Does not Exercise Seatbelt Use: always Sunscreen Use: No Assistive Devices: Cane, Oxygen - Continuous and Walker Allergies Allergies Allergy/AdvReac Type Severity Reaction Status Date / Time Penicillins Allergy Severe FACIAL Verified 08/22/23 11:21 SWELLING AND RASH amoxicillin Allergy Intermediate RASH Verified 08/22/23 11:21 clavulanic acid Allergy Intermediate RASH Verified 08/22/23 11:21 azithromycin Allergy Unknown PER NEPHRO Verified 08/22/23 11:21 NOTE cholestyramine Allergy Unknown per nephro Verified 08/22/23 11:21 note niacin Allergy Unknown per nephro Verified 08/22/23 11:21 note phenylephrine Allergy Unknown per nephro Verified 08/22/23 11:21 note [id number] Reductase AdvReac Intermediate JOINT Verified 08/22/23 11:21 Inhibitor STIFFNESS [Jpwjwoq-[id number]-Uop Reductase AND PAIN Inhibitor] Home Meds Home Medications Medication Instructions Recorded Confirmed glucosamine sulfate 500 mg tablet 2 tabs PO QAM 03/13/18 08/22/23 (Glucosamine) latanoprost 0.005 % eye drops 1 drp OPB HS 03/13/18 08/22/23 (Xalatan) cholecalciferol (vitamin D3) 125 125 mcg PO DAILY 08/08/22 08/22/23 mcg (5,000 unit) capsule levothyroxine 100 mcg tablet 100 mcg PO DAILYBB 08/08/22 08/22/23 mirtazapine 15 mg tablet 7.5 mg PO HS anorexia 02/06/23 08/22/23 loratadine 10 mg tablet (Allergy 10 mg PO DAILY 03/29/23 08/22/23 Relief (loratadine)) acetaminophen 500 mg tablet 1,000 mg PO BIDM 07/27/23 08/22/23 (Tylenol Extra Strength) amlodipine 2.5 mg tablet 2.5 mg PO HS 07/27/23 08/22/23 apixaban 2.5 mg tablet (Eliquis) 2.5 mg PO BID 07/27/23 08/22/23 hydralazine 100 mg tablet 100 mg PO TID 07/27/23 08/22/23 hydralazine 50 mg tablet 50 mg PO TID 07/27/23 08/22/23 insulin aspart (niacinamide) 8 unit subcut TIDM 07/27/23 08/22/23 (U-100) 100 unit/mL subcutaneous solution (Fiasp U-100 Insulin) acetaminophen 325 mg tablet 650 mg PO Q6H PRN PAIN/FEVER >100 08/22/23 08/22/23 (Tylenol) clopidogrel 75 mg tablet 75 mg PO Q OTHER DAY 08/22/23 08/22/23 dorzolamide 2 % eye drops 1 drp OPB BID 08/22/23 08/22/23 ipratropium 0.5 mg-albuterol 3 mg 3 ml inhalation Q2H PRN shortness 08/22/23 08/22/23 (2.5 mg base)/3 mL nebulization of breath or wheezing soln magnesium oxide 500 mg PO DAILY 08/22/23 08/22/23 pantoprazole 40 mg tablet,delayed 40 mg PO DAILYBB 08/22/23 08/22/23 release polyethylene glycol 3350 17 gram 17 g PO BIDM 08/22/23 08/22/23 oral powder packet (Miralax) potassium chloride 20 mEq 20 meq PO QAM 08/22/23 08/22/23 tablet,extended release sertraline 100 mg tablet 100 mg PO HS 08/22/23 08/22/23 thiamine HCl (vitamin B1) 100 mg 200 mg PO BIDM 08/22/23 08/22/23 tablet Previous Rx's Medication Instructions Recorded nitroglycerin 0.4 mg sublingual 0.4 mg sublingual UD PRN Chest 03/12/19 tablet (Nitrostat) Pain #1 btl OneTouch UltraSoft Lancets #400 ea 05/23/19 (lancets) insulin syringe-needle U-100 0.5 #300 ea 08/13/19 mL 31 gauge x 5/16" (BD Insulin Syringe Ultra-Fine) nebulizers (Aeroneb Go Nebulizer) #1 ea 10/04/20 metoprolol succinate 100 mg 100 mg PO QAM #90 tabs 01/02/22 tablet,extended release 24 hr BD Ultra-Fine Short Pen Needle 31 #100 ea 01/17/22 gauge x 5/16" (pen needle, diabetic) blood sugar diagnostic (OneTouch #400 ea 01/23/22 Ultra Test strips) fluticasone fur. 100 mcg-umeclid 1 inh inhalation DAILY #60 ea 04/24/22 62.5 mcg-vilant 25 mcg inhalat.powder (Trelegy Ellipta) finasteride 5 mg tablet 5 mg PO DAILY #90 tabs 05/09/22 tamsulosin 0.4 mg capsule 0.4 mg PO DAILY #90 caps 05/09/22 vibegron 75 mg tablet (Gemtesa) 75 mg PO DAILY #30 tabs 06/07/22 furosemide 40 mg tablet 40 mg PO QAM #0 tabs 08/31/22 insulin glargine 100 unit/mL 46 unit (0.46 mL) subcut HS #50 mL 03/29/23 subcutaneous solution (Lantus U-100 Insulin) Results & Data (ED) Vital Signs Vital Signs - 24 hr 08/22/23 09:03 08/22/23 09:07 08/22/23 09:07 Temperature 37.0 C Temperature Source Oral Pulse Rate Pulse Rate [Left Finger] 108 H Respiratory Rate 20 Respiratory Effort / Characteristics Non-Labored Spontaneous Respiratory Depth Normal Respiratory Pattern Regular Blood Pressure [Right Arm] 165/98 H Blood Pressure Mean [Right Arm] 120 Blood Pressure Position [Right Arm] Semi-fowlers Pulse Oximetry 93 93 Oxygen Delivery Method Nasal Cannula Nasal Cannula Oxygen Flow Rate 3 3 Sepsis Recent Fever Within 48 Hours No Sepsis New/Unexplained Change in Mental Status No Sepsis Action Taken by Nursing No Action Required 08/22/23 09:27 08/22/23 11:00 08/22/23 13:00 Temperature Temperature Source Pulse Rate 90 Pulse Rate [Left Finger] 85 79 Respiratory Rate 20 20 Respiratory Effort / Characteristics Non-Labored Spontaneous Spontaneous Respiratory Depth Normal Normal Respiratory Pattern Regular Regular Blood Pressure [Right Arm] 165/98 H 154/118 H Blood Pressure Mean [Right Arm] 120 130 Blood Pressure Position [Right Arm] Semi-fowlers Pulse Oximetry 98 96 Oxygen Delivery Method Nasal Cannula Nasal Cannula Oxygen Flow Rate 3 3 Sepsis Recent Fever Within 48 Hours Sepsis New/Unexplained Change in Mental Status Sepsis Action Taken by Nursing Laboratory Data Attestation: I reviewed the patient's lab results. 08/22/23 09:39 08/22/23 09:39 Lab Results 08/22/23 08/22/23 08/22/23 Range/Units 08:51 09:39 10:40 WBC 15.93 H (4.8-10.8) K/ul RBC 5.43 (4.70-6.10) M/uL Hgb 14.9 (14.0-18.0) g/dl Hct 47.6 (42.0-52.0) % MCV 87.7 (80.0-100.0) fL MCH 27.4 (25.0-34.0) pg MCHC 31.3 L (32.0-36.0) g/dL RDW Std Deviation 50.4 H (36.4-46.3) fL RDW Coeff of Carolyn 15.9 H (11.5-14.5) % Plt Count 208 (130-400) K/uL MPV 9.7 (9.4-12.4) fL Immature Gran % (Auto) 0.4 % Neut % (Auto) 86.3 % Lymph % (Auto) 4.5 % Mingo % (Auto) 6.3 % Eos % (Auto) 1.9 % Baso % (Auto) 0.6 % Neut # (Auto) 13.74 H (1.40-6.50) K/uL Lymph # (Auto) 0.72 L (1.20-3.40) K/uL Mingo # (Auto) 1.00 H (0.11-0.59) K/uL Eos # (Auto) 0.31 (0.00-0.50) K/uL Baso # (Auto) 0.09 (0.00-0.20) K/uL Immature Gran # (Auto) 0.07 (0.01-0.20) K/uL PT 11.1 (9.0-12.0) Seconds INR 1.0 (0.9-1.1) VBG pH 7.38 (7.36-7.41) VBG pCO2 58 H (38-50) mmHg VBG pO2 30 mmHg VBG HCO3 34 mmol/L VBG O2 Saturation < 60.0 % VBG Base Excess 7.3 mEq/L Sodium 140 (136-145) mmol/L Potassium 4.5 (3.5-5.1) mmol/L Chloride 103 (98-107) mmol/L Carbon Dioxide 31 (21-32) mmol/L Anion Gap 6 (3-11) BUN 27 H (6-23) mg/dl Creatinine 2.07 H (0.6-1.4) mg/dl Est Cr Clr Drug Dosing Not Reportable Est GFR ( Amer) 34.0 ml/min Est GFR (Non-Af Amer) 29.4 ml/min BUN/Creatinine Ratio 13.0 (10-20) Glucose 205 H (70-99(Fasting)) mg/dl POC Glucose 169 H (70-99) mg/dl Lactate 1.5 (0.4-2.0) mmol/L Calcium 9.5 (8.6-10.3) mg/dl Phosphorus 2.9 (2.5-4.9) mg/dl Magnesium 1.7 (1.7-2.4) mg/dl Total Bilirubin 0.5 (0.2-1.0) mg/dl AST 13 (13-39) U/L ALT 9 (7-52) U/L Alkaline Phosphatase 120 H (34-104) U/L Troponin I High Sens 14.0 (0-20) pg/ml Total Protein 6.9 (6.0-8.3) gm/dl Albumin 3.7 (3.4-5.0) gm/dl Globulin 3.2 (2.5-4.0) gm/dl Albumin/Globulin Ratio 1.2 (0.9-2) Lipase < 3 L (11-82) U/L Procalcitonin 0.15 (0-0.5) ng/ml TSH 0.519 (0.300-4.500) uIu/ml Prolactin 9.74 ng/ml Urine Color Urine Appearance (Clear) Urine pH (4.5-7.5) Ur Specific Cresson (1.000-1.030) Urine Protein (Negative) Urine Glucose (UA) (Negative) Urine Ketones (Negative) Urine Blood (Negative) Urine Nitrite (Negative) Urine Bilirubin (Negative) Urine Urobilinogen (Negative) Ur Leukocyte Esterase (Negative) Urine WBC (Auto) (0-5) /hpf Urine RBC (Auto) (0-2) /hpf U Hyaline Cast (Auto) (0-2) /lpf U Epithel Cells (Auto) (0-2) /hpf Urine Bacteria (Auto) (None Seen) Nasal Screen MRSA (PCR) (Negative) Adenovirus (PCR) (NotDetected) B. pertussis DNA (PCR) (NotDetected) B.parapertussis DNA PCR (NotDetected) C. pneumoniae DNA (PCR) (NotDetected) Coronavirus OC43 (PCR) (NotDetected) Coronavirus HKU1 (PCR) (NotDetected) Coronavirus 229E (PCR) (NotDetected) SARS-CoV-2 (PCR) (NotDetected) Coronavirus NL63 (PCR) (NotDetected) Human Metapneumovir PCR (NotDetected) Influenza Type A (PCR) (NotDetected) Influenza Type B (PCR) (NotDetected) M. pneumoniae (PCR) (NotDetected) Parainfluenza 1 (PCR) (NotDetected) Parainfluenza 2 (PCR) (NotDetected) Parainfluenza 3 (PCR) (NotDetected) Parainfluenza 4 (PCR) (NotDetected) RSV (PCR) (NotDetected) Entero/Rhino (PCR) (NotDetected) 08/22/23 08/22/23 08/22/23 Range/Units 10:45 11:12 12:45 WBC (4.8-10.8) K/ul RBC (4.70-6.10) M/uL Hgb (14.0-18.0) g/dl Hct (42.0-52.0) % MCV (80.0-100.0) fL MCH (25.0-34.0) pg MCHC (32.0-36.0) g/dL RDW Std Deviation (36.4-46.3) fL RDW Coeff of Carolyn (11.5-14.5) % Plt Count (130-400) K/uL MPV (9.4-12.4) fL Immature Gran % (Auto) % Neut % (Auto) % Lymph % (Auto) % Mingo % (Auto) % Eos % (Auto) % Baso % (Auto) % Neut # (Auto) (1.40-6.50) K/uL Lymph # (Auto) (1.20-3.40) K/uL Mingo # (Auto) (0.11-0.59) K/uL Eos # (Auto) (0.00-0.50) K/uL Baso # (Auto) (0.00-0.20) K/uL Immature Gran # (Auto) (0.01-0.20) K/uL PT (9.0-12.0) Seconds INR (0.9-1.1) VBG pH (7.36-7.41) VBG pCO2 (38-50) mmHg VBG pO2 mmHg VBG HCO3 mmol/L VBG O2 Saturation % VBG Base Excess mEq/L Sodium (136-145) mmol/L Potassium (3.5-5.1) mmol/L Chloride (98-107) mmol/L Carbon Dioxide (21-32) mmol/L Anion Gap (3-11) BUN (6-23) mg/dl Creatinine (0.6-1.4) mg/dl Est Cr Clr Drug Dosing Est GFR ( Amer) ml/min Est GFR (Non-Af Amer) ml/min BUN/Creatinine Ratio (10-20) Glucose (70-99(Fasting)) mg/dl POC Glucose 128 H (70-99) mg/dl Lactate (0.4-2.0) mmol/L Calcium (8.6-10.3) mg/dl Phosphorus (2.5-4.9) mg/dl Magnesium (1.7-2.4) mg/dl Total Bilirubin (0.2-1.0) mg/dl AST (13-39) U/L ALT (7-52) U/L Alkaline Phosphatase (34-104) U/L Troponin I High Sens (0-20) pg/ml Total Protein (6.0-8.3) gm/dl Albumin (3.4-5.0) gm/dl Globulin (2.5-4.0) gm/dl Albumin/Globulin Ratio (0.9-2) Lipase (11-82) U/L Procalcitonin (0-0.5) ng/ml TSH (0.300-4.500) uIu/ml Prolactin ng/ml Urine Color Yellow Urine Appearance Cloudy A (Clear) Urine pH 6.0 (4.5-7.5) Ur Specific C[place]on 1.022 (1.000-1.030) Urine Protein 2+ H (Negative) Urine Glucose (UA) Trace H (Negative) Urine Ketones Negative (Negative) Urine Blood 1+ H (Negative) Urine Nitrite Positive A (Negative) Urine Bilirubin Negative (Negative) Urine Urobilinogen Negative (Negative) Ur Leukocyte Esterase 2+ H (Negative) Urine WBC (Auto) >50 H (0-5) /hpf Urine RBC (Auto) >20 H (0-2) /hpf U Hyaline Cast (Auto) 3-5 H (0-2) /lpf U Epithel Cells (Auto) 0-2 (0-2) /hpf Urine Bacteria (Auto) None Seen (None Seen) Nasal Screen MRSA (PCR) Negative (Negative) Adenovirus (PCR) Not Detected (NotDetected) B. pertussis DNA (PCR) Not Detected (NotDetected) B.parapertussis DNA PCR Not Detected (NotDetected) C. pneumoniae DNA (PCR) Not Detected (NotDetected) Coronavirus OC43 (PCR) Not Detected (NotDetected) Coronavirus HKU1 (PCR) Not Detected (NotDetected) Coronavirus 229E (PCR) Not Detected (NotDetected) SARS-CoV-2 (PCR) Not Detected (NotDetected) Coronavirus NL63 (PCR) Not Detected (NotDetected) Human Metapneumovir PCR Not Detected (NotDetected) Influenza Type A (PCR) Not Detected (NotDetected) Influenza Type B (PCR) Not Detected (NotDetected) M. pneumoniae (PCR) Not Detected (NotDetected) Parainfluenza 1 (PCR) Not Detected (NotDetected) Parainfluenza 2 (PCR) Not Detected (NotDetected) Parainfluenza 3 (PCR) Not Detected (NotDetected) Parainfluenza 4 (PCR) Not Detected (NotDetected) RSV (PCR) Not Detected (NotDetected) Entero/Rhino (PCR) Not Detected (NotDetected) Administered Medications Acetaminophen (Acetaminophen 500 Mg Tab) 1,000 mg PO BIDM [facility] Stop: 09/21/23 16:59 Last Admin: 08/22/23 18:16 Dose: 1,000 mg Documented By: GISSELLE Finasteride (Finasteride 5 Mg Tab) 5 mg PO DAILY [facility] Stop: 09/21/23 15:57 Last Admin: 08/22/23 18:24 Dose: 5 mg Documented By: GISSELLE Furosemide (Furosemide 40 Mg Tab) 40 mg PO QAM [facility] Stop: 09/21/23 15:57 Last Admin: 08/22/23 18:28 Dose: 40 mg Documented By: GISSELLE Hydralazine HCl (Hydralazine Tab 50 Mg Tab) 100 mg PO TID [facility] Stop: 09/21/23 15:57 Last Admin: 08/22/23 21:01 Dose: Not Given Documented By: Admin: 08/22/23 18:25 Dose: 100 mg Documented By: GISSELLE Hydralazine HCl (Hydralazine Tab 50 Mg Tab) 50 mg PO TID [facility] Stop: 09/21/23 15:57 Last Admin: 08/22/23 21:01 Dose: Not Given Documented By: Admin: 08/22/23 18:25 Dose: 50 mg Documented By: GISSELLE Insulin Aspart (Insulin Aspart Per Unit Charge) 0 units SC ACHS [facility] Stop: 09/21/23 16:29 Last Admin: 08/22/23 20:34 Dose: Not Given Documented By: GISSELLE Co-signed By: MYRIAM Admin: 08/22/23 16:48 Dose: Not Given Documented By: GISSELLE Co-signed By: [facility] Magnesium Oxide (Magnesium Oxide 400 Mg Tab) 400 mg PO DAILY [facility] Stop: 09/21/23 15:57 Last Admin: 08/22/23 18:29 Dose: 400 mg Documented By: GISSELLE Polyethylene Glycol (Polyethylene (Miralax) 17 Gm Pack) 17 gm PO BIDM [facility] Stop: 09/21/23 16:59 Last Admin: 08/22/23 18:29 Dose: 17 gm Documented By: GISSELLE Tamsulosin HCl (Tamsulosin Hcl 0.4 Mg Cap) 0.4 mg PO DAILY [facility] Stop: 09/21/23 15:57 Last Admin: 08/22/23 18:22 Dose: 0.4 mg Documented By: GISSELLE Thiamine HCl (Thiamine Hcl 100 Mg Tab) 200 mg PO BIDM [facility] Stop: 09/21/23 16:59 Last Admin: 08/22/23 18:14 Dose: 200 mg Documented By: GISSELLE Vibegron (Vibegron 75 Mg Tab) 75 mg PO DAILY [facility] Stop: 09/21/23 15:57 Last Admin: 08/22/23 18:19 Dose: 75 mg Documented By: GISSELLE Discontinued Medications Sodium Chloride (Nss) 500 mls @ 999 mls/hr IV .Q31M ONE Stop: 08/22/23 09:28 Last Infusion: 08/22/23 10:27 Dose: Infused Documented By: Admin: 08/22/23 09:44 Dose: 999 mls/hr Documented By: LADYM Cefepime HCl (Maxipime) 2,000 mg in 20 mls @ 5 mls/min IV NOW STA; Protocol Stop: 08/22/23 11:46 Last Admin: 08/22/23 12:35 Dose: 5 mls/min Documented By: NA Metronidazole (Flagyl) 500 mg in 100 mls @ 100 mls/hr IV NOW STA; Protocol Stop: 08/22/23 12:47 Last Infusion: 08/22/23 13:39 Dose: Infused Documented By: Admin: 08/22/23 12:36 Dose: 100 mls/hr Documented By: NA Magnesium Sulfate/Dextrose (Magnesium Sulfate / D5w) 1 gm in 100 mls @ 50 mls/hr IV ONE ONE Stop: 08/22/23 15:51 Last Infusion: 08/22/23 18:41 Dose: Infused Documented By: Admin: 08/22/23 14:54 Dose: 50 mls/hr Documented By: GOMEZ Metoprolol Succinate (Metoprolol Succ 50mg Ext Rel Tab) 100 mg PO NOW STA Stop: 08/22/23 13:02 Last Admin: 08/22/23 13:38 Dose: 100 mg Documented By: SHEFALI Imaging Data Radiologist's Impression: Chest X-Ray 08/22/23 08:56 XR chest 1V portable CLINICAL HISTORY: Chest pain, nonspecific COMPARISON STUDY: Chest CT August 22, 2002. Chest radiograph August 29, 2022. FINDINGS: Lung volumes are mildly diminished. No pneumothorax or pleural effusion is present. Moderate cardiomegaly is unchanged. There is mild interstitial thickening with possible mild bilateral airspace opacities. IMPRESSION: Interstitial thickening with possible mild bilateral airspace opacities. The findings could reflect mild pulmonary edema or an infectious process. Radiographic follow-up to ensure resolution is recommended. ACT 112: Negative or not required by law. Electronically signed by: Dangelo Farfan M.D. 08/22/2023 9:[address] 08/22/23 11:[address] DOSE: 625.8 mGy.cm HISTORY: ams, syncope TECHNIQUE: Multiaxial CT images of the head were performed without the use of intravenous contrast. Automated exposure control was utilized for this study. A dose lowering technique was utilized adhering to the principles of ALARA. Comparison: Head CT 08/24/2022. Findings: Mild mucosal thickening within the right maxillary sinus. The remaining paranasal sinuses and mastoid air cells are clear. The calvarium and skull base are intact. There is no mass, hematoma, midline shift, acute infarct. White matter hypodensity is nonspecific but suggestive of microvascular ischemic change. The ventricles and sulci demonstrate mild age-related involutional changes. Impression: No significant change compared to the prior study. No acute intracranial abnormality. ACT 112: Negative or not required by law. Electronically signed by: Zachary Gonzalez M.D. 08/22/2023 12:15 PM Discharge Plan Visit Data Chief Complaint: Hypoglycemia Stated Complaint: SEIZURE ED Provider: Yeison Mistry Discharge Problem: Syncope, Pneumonia, Dementia, UTI (urinary tract infection) Patient Disposition: Admitted As Inpatient Discharge Instructions Interventions: ED Discharge Assessment Last Done: 08/22/23 13:45 Discharge Problem: Syncope Qualifiers: Syncope type: unspecified Qualified Code(s): R55 - Syncope and collapse Pneumonia Qualifiers: Pneumonia type: due to unspecified organism Laterality: bilateral Lung location: upper lobe of lung Qualified Code(s): J18.9 - Pneumonia, unspecified organism Dementia Qualifiers: Dementia type: unspecified type Dementia severity: unspecified severity D ementia behavioral or psychological symptom: unspecified whether behavioral, psychotic, or mood disturbance or anxiety Qualified Code(s): F03.90 - Unspecified dementia, unspecified severity, without behavioral disturbance, psychotic disturbance, mood disturbance, and anxiety UTI (urinary tract infection) Qualifiers: Urinary tract infection type: acute cystitis Hematuria presence: with hematuria Qualified Code(s): N30.01 - Acute cystitis with hematuria
[2023-08-22 10:23] LABS: Alanine Aminotransferase 9 U/L (7-52); Albumin Globulin Ratio 1.2 (0.9-2); Albumin Level 3.7 gm/dl (3.4-5.0); Alkaline Phosphatase 120 U/L (34-104); Anion Gap 6 (3-11); Aspartate Aminotransferase 13 U/L (13-39); Bilirubin,Total 0.5 mg/dl (0.2-1.0); Blood Urea Nitrogen 27 mg/dl (6-23); Calcium 9.5 mg/dl (8.6-10.3); Carbon Dioxide 31 mmol/L (21-32); Chloride 103 mmol/L (98-107); Est GFR (Non-African American) 29.4 ml/min; Globulin 3.2 gm/dl (2.5-4.0); Glucose 205 mg/dl (70-99(Fasting)); Lipase < 3 U/L (11-82); Magnesium 1.7 mg/dl (1.7-2.4); Phosphorus 2.9 mg/dl (2.5-4.9); Potassium 4.5 mmol/L (3.5-5.1); Sodium 140 mmol/L (136-145); Total Protein 6.9 gm/dl (6.0-8.3)
[2023-08-22 10:32] LABS: Prothrombin Time 11.1 Seconds (9.0-12.0)
[2023-08-22 10:38] LABS: Thyroid Stimulating Hormone 0.519 uIu/ml (0.300-4.500)
[2023-08-22 11:51] LABS: Adenovirus PCR Not Detected (NotDetected); Bordetella parapertussis PCR Not Detected (NotDetected); Bordetella pertussis PCR Not Detected (NotDetected); Chlamydia pneumoniae PCR Not Detected (NotDetected); Coronavirus 229E PCR Not Detected (NotDetected); Coronavirus CoV-2 (COVID19)PCR Not Detected (NotDetected); Coronavirus HKU1 PCR Not Detected (NotDetected); Coronavirus NL63 PCR Not Detected (NotDetected); Coronavirus OC43PCR Not Detected (NotDetected); Human Metapneumovirus PCR Not Detected (NotDetected); Influenza A PCR Not Detected (NotDetected); Influenza B PCR Not Detected (NotDetected); Mycoplasma pneumoniae PCR Not Detected (NotDetected); Parainfluenza Virus 1 PCR Not Detected (NotDetected); Parainfluenza Virus 2 PCR Not Detected (NotDetected); Parainfluenza Virus 3 PCR Not Detected (NotDetected); Parainfluenza Virus 4 PCR Not Detected (NotDetected); Respiratory Syncytial VirusPCR Not Detected (NotDetected); Rhinovirus/Enterovirus PCR Not Detected (NotDetected)
[2023-08-22 12:05] LABS: Appearance Urine Cloudy (Clear); Bacteria Urine Automated None Seen (None Seen); Bilirubin Urine Negative (Negative); Blood Urine 1+ (Negative); Color Urine Yellow; Epithelial Cell Urine Auto 0-2 /hpf (0-2); Glucose Urine UA Trace (Negative); Ketones Urine Negative (Negative); Leukocyte Esterase Urine 2+ (Negative); Nitrite Urine Positive (Negative); Protein Urine 2+ (Negative); RBC Urine Automated >20 /hpf (0-2); Specific Gravity Urine 1.022 (1.000-1.030); Urobilinogen Urine Negative (Negative); WBC Urine Automated >50 /hpf (0-5)
--- NOTE | 2023-08-22 12:14 | History & Physical Report ---
Date of Service August 22, 2023 Assessment & Plan (1) Seizure-like activity: Plan: Seizure-like activity while in bed at 0730 on the morning of 08/21; witnessed by [facility] nursing staff Jerking lasted approximately 1 minute Patient bit his tongue Postictal state for 15-20 minutes afterwards; glossy eyed, lethargic, jaw locked, not speaking Patient was hypoglycemic upon waking (58mg/dL) measured at 0600 No strokelike symptoms appreciated by nursing staff (no facial droop, slurred speech, or unilateral deficits) Per , patient may have had a seizure back when he was a teenager, but nothing since Head CT negative on arrival; okay to continue Eliquis Clinically, suspect hypoglycemia induced seizure (with additional contributing infection; see #2, #3) Prolactin ordered, pending Brain MRI with and without ordered, pending PT/OT consulted A.m. CBC, BMP, mag (2) Pneumonia: Plan: Leukocytosis at 15.93 with neutrophil predominance; afebrile CXR with findings consistent with pneumonia/infectious process Blood culture ordered, pending Cefepime 2000 mg IV q12h (3) UTI (urinary tract infection): Plan: Chronic indwelling Lomeli Placed in the ED UA positive on arrival, but given patient's advanced dementia unable to assess for UTI symptoms (denies burning sensation in the groin/suprapubic pain) Daily Lomeli catheter care Urine culture on 07/20/2023 was sensitive to cefepime Cefepime to cover (as above) Follow UCx (4) Diabetes mellitus, type II, insulin dependent: Plan: Last A1c at 8.4% on 07/13/2023 Glucose 169 on admission Patient normally takes Lantus 46u HS BSG q2h for now, then transition to [facility] Pharmacy glycemic consult given that he has recently been bouncing between hyperglycemia and hypoglycemia (238 on 08/20 at 2000 --> 58 on 08/21 at 0600) Nursing staff at [facility] also report he had been having issues with hypoglycemia the day prior to seizure-like activity Recommend Lantus BID while inpatient for now + SSI T2DM diet Adjust regimen as needed (5) Hypoglycemia: Plan: Likely contributed to seizure Diabetic management as above (6) Chronic respiratory failure with hypoxia: Plan: 3 L NC at baseline (7) Dementia: Plan: Alzheimer's, around baseline (8) Atrial fibrillation: Plan: Continue metoprolol, apixaban (9) Chronic heart failure with preserved ejection fraction (HFpEF): Plan: Continue Lasix Plan Disposition: Obs -admit to [facility] telemetry DNR/DNI AHA, low-salt, T2DM diet VTE PPx: On Eliquis History of Present Illness Chief Complaint: Hypoglycemia and seizure-like activity Primary Care Provider: [facility] Ramses is an 78-year-old male with PMH of Alzheimer's dementia, COPD with emphysema, chronic respiratory failure with hypoxia, atrial fibrillation (on ap ixaban), T2DM, HFpEF, and gait instability. He presented via EMS from [facility] for seizure-like activity while walking this morning on 08/21. Patient was with [facility] nursing students this morning, when he developed sudden onset of seizure-like activity in bed; exhibited jerking; bit his tongue; LOC; no loss of urinary continence, however chronic indwelling Lomeli was in place. No prior his tory of seizures. Of note, patient's blood sugar was low this morning; per records it was around 58 at 0600; glucagon was given. Patient did not receive any of his regular morning medications today. Per review of notes, he regularly takes insulin 46u Lantus at night. Patient has a chronic indwelling Lomeli catheter, which was replaced in the ED today. He is on supplemental oxygen at baseline; 3L NC. Patient is hypertensive at 165/98 at time of admission; SpO2 98% on 3L NC. [facility], but nursing staff reports two sons and sister were here earlier and made aware the patient will be admitted. ED course: Metronidazole 500 mg IV Cefepime 2000 mg IV NSS 500 mL IV Difficult to obtain ROS given patient's Alzheimer's dementia; however, he denies any pain at this time (no fever, chills, dizziness, lightheadedness, headache, chest pain, SOB, abdominal pain, N/V/D, suprapubic pain, burning sensation in the groin, or pain in arms or legs). Spoke on the phone with [facility] nursing staff (Kathi), who did not witness seizure-like activity, but was present for the postictal state. She reports that seizure-like activity occurred at approximately 0730 this morning while the patient was in bed and lasted for approximately 1 minute. Following this activity, patient was lethargic and glassy eyed. He was unable to speak his first word for 10 minutes, and was "in and out" of consciousness for 15 to 20 minutes following this. She also notes that his jaw was locked following seizure-like activity. Patient was experience some hypoglycemia yesterday on 08/20, as well as today. Addendum: Spoke to patient's at bedside later in the day and provided update regarding status. She reports patient may have had a seizure back when he was a teenager, but nothing since. No history of strokes to her knowledge. She does note that there is been a subacute change in cognitive baseline recently; over the past 2 weeks he has been less responsive with "increased staring". He also has been eating less. Allergies Allergy/AdvReac Type Severity Reaction Status Date / Time Penicillins Allergy Severe FACIAL Verified 08/22/23 11:21 SWELLING AND RASH amoxicillin Allergy Intermediate RASH Verified 08/22/23 11:21 clavulanic acid Allergy Intermediate RASH Verified 08/22/23 11:21 azithromycin Allergy Unknown PER NEPHRO Verified 08/22/23 11:21 NOTE cholestyramine Allergy Unknown per nephro Verified 08/22/23 11:21 note niacin Allergy Unknown per nephro Verified 08/22/23 11:21 note phenylephrine Allergy Unknown per nephro Verified 08/22/23 11:21 note Huymxkp-DPR-JtS Reductase AdvReac Intermediate JOINT Verified 08/22/23 11:21 Inhibitor STIFFNESS [Dtjovpc-Eaf-Iyb Reductase AND PAIN Inhibitor] Home Medications Medication Instructions Recorded Confirmed Type glucosamine sulfate 500 mg tablet 2 tabs PO QAM 03/13/18 08/22/23 History (Glucosamine) latanoprost 0.005 % eye drops 1 drp OPB HS 03/13/18 08/22/23 History (Xalatan) nitroglycerin 0.4 mg sublingual 0.4 mg sublingual UD PRN Chest 03/12/19 08/22/23 Rx tablet (Nitrostat) Pain #1 btl OneTouch UltraSoft Lancets #400 ea 05/23/19 02/06/23 Rx (lancets) insulin syringe-needle U-100 0.5 #300 ea 08/13/19 02/06/23 Rx mL 31 gauge x 5/16" (BD Insulin Syringe Ultra-Fine) nebulizers (Aeroneb Go Nebulizer) #1 ea 10/04/20 02/06/23 Rx metoprolol succinate 100 mg 100 mg PO QAM #90 tabs 01/02/22 08/22/23 Rx tablet,extended release 24 hr BD Ultra-Fine Short Pen Needle 31 #100 ea 01/17/22 02/06/23 Rx gauge x 5/16" (pen needle, diabetic) blood sugar diagnostic (OneTouch #400 ea 01/23/22 02/06/23 Rx Ultra Test strips) fluticasone fur. 100 mcg-umeclid 1 inh inhalation DAILY #60 ea 04/24/22 08/22/23 Rx 62.5 mcg-vilant 25 mcg inhalat.powder (Trelegy Ellipta) finasteride 5 mg tablet 5 mg PO DAILY #90 tabs 05/09/22 08/22/23 Rx tamsulosin 0.4 mg capsule 0.4 mg PO DAILY #90 caps 05/09/22 08/22/23 Rx vibegron 75 mg tablet (Gemtesa) 75 mg PO DAILY #30 tabs 06/07/22 08/22/23 Rx cholecalciferol (vitamin D3) 125 125 mcg PO DAILY 08/08/22 08/22/23 History mcg (5,000 unit) capsule levothyroxine 100 mcg tablet 100 mcg PO DAILYBB 08/08/22 08/22/23 History furosemide 40 mg tablet 40 mg PO QAM #0 tabs 08/31/22 08/22/23 Rx mirtazapine 15 mg tablet 7.5 mg PO HS anorexia 02/06/23 08/22/23 History insulin glargine 100 unit/mL 46 unit (0.46 mL) subcut HS #50 mL 03/29/23 08/22/23 Rx subcutaneous solution (Lantus U-100 Insulin) loratadine 10 mg tablet (Allergy 10 mg PO DAILY 03/29/23 08/22/23 History Relief (loratadine)) acetaminophen 500 mg tablet 1,000 mg PO BIDM 07/27/23 08/22/23 History (Tylenol Extra Strength) amlodipine 2.5 mg tablet 2.5 mg PO HS 07/27/23 08/22/23 History apixaban 2.5 mg tablet (Eliquis) 2.5 mg PO BID 07/27/23 08/22/23 History hydralazine 100 mg tablet 100 mg PO TID 07/27/23 08/22/23 History hydralazine 50 mg tablet 50 mg PO TID 07/27/23 08/22/23 History insulin aspart (niacinamide) 8 unit subcut TIDM 07/27/23 08/22/23 History (U-100) 100 unit/mL subcutaneous solution (Fiasp U-100 Insulin) acetaminophen 325 mg tablet 650 mg PO Q6H PRN PAIN/FEVER >100 08/22/23 08/22/23 History (Tylenol) clopidogrel 75 mg tablet 75 mg PO Q OTHER DAY 08/22/23 08/22/23 History dorzolamide 2 % eye drops 1 drp OPB BID 08/22/23 08/22/23 History ipratropium 0.5 mg-albuterol 3 mg 3 ml inhalation Q2H PRN shortness 08/22/23 08/22/23 History (2.5 mg base)/3 mL nebulization of breath or wheezing soln magnesium oxide 500 mg PO DAILY 08/22/23 08/22/23 History pantoprazole 40 mg tablet,delayed 40 mg PO DAILYBB 08/22/23 08/22/23 History release polyethylene glycol 3350 17 gram 17 g PO BIDM 08/22/23 08/22/23 History oral powder packet (Miralax) potassium chloride 20 mEq 20 meq PO QAM 08/22/23 08/22/23 History tablet,extended release sertraline 100 mg tablet 100 mg PO HS 08/22/23 08/22/23 History thiamine HCl (vitamin B1) 100 mg 200 mg PO BIDM 08/22/23 08/22/23 History tablet Past Med/Surg History Medical History Atrial fibrillation metoprolol/apixaban Dementia Dilatation of colon Acute metabolic encephalopathy Multiple fractures of ribs, right side, initial encounter for closed fracture Compression fracture of L1 lumbar vertebra Back pain PAD (peripheral artery disease) Traumatic open wound of lower leg History of restrictive lung disease Chronic systolic CHF (congestive heart failure) Chronic renal failure (CRF), stage 3b OLIVER (acute kidney injury) Diabetes mellitus type 2, uncontrolled Rhabdomyolysis Pneumonia due to COVID-19 virus COVID Acute respiratory failure with hypoxia Diabetic ulcer of right foot Traumatic open wound of right lower leg Diabetic ulcer of toe of left foot associated with type 2 diabetes mellitus, limited to breakdown of skin Leaking of urine BPH with obstruction/lower urinary tract symptoms Diabetic ulcer of toe of left foot Chronic diastolic congestive heart failure, NYHA class 2 Bladder cancer COPD exacerbation Dysphagia WALL (dyspnea on exertion) On home O2 2 LPM PRN COPD (chronic obstructive pulmonary disease) CAD (coronary artery disease) follows with Dr. Motley BPH (benign prostatic hyperplasia) Permanent atrial fibrillation Depression (Unknown) CAD (coronary artery disease) Tracheomalacia Resting tremor Exertional shortness of breath Morbid obesity Restrictive lung disease Chronic kidney disease, stage III (moderate) follows with Dr. Opal WALL (dyspnea on exertion) Bronchospasm Acute diastolic CHF (congestive heart failure) Anticoagulant long-term use Diabetes mellitus with neurological manifestations, uncontrolled Diabetes mellitus, type II, insulin dependent Diabetic nephropathy Diabetic peripheral neuropathy Diabetic retinopathy, nonproliferative, mild Dysphagia causing pulmonary aspiration with swallowing Glaucoma Hyperlipidemia Hypertension Odynophagia Degenerative disc disease History of colon polyps GERD (gastroesophageal reflux disease) Cancer of skin of left ear removed Cancer of skin of back removed Bladder cancer 2014--sx Hearing deficit Alzheimer disease on donepezil Surgical History History of skin surgery removal of basal cell carcinoma from L side of face, 08/24/[address] Velazquez History of colonoscopy History of bladder surgery 2014 bladder tumor removal @ [facility] History of tonsillectomy and adenoidectomy History of bilateral cataract extraction History of cardiac cath x3--2011, 2014, 2017 @ [facility] H/O heart artery stent (2015) 2012 x 1 2014 x 3 2017 x 1 ( showed severe 99 % mid RCA in stent restenoses which was treated with drug-eluting stent) Family History Mother Family history of diabetes mellitus COPD (chronic obstructive pulmonary disease) Lung cancer Father Family history of diabetes mellitus Acute appendicitis Brother Hx of CABG Myocardial infarction Sister Heart disease Myocardial infarction Other Coronary heart disease Denies family history of Ovarian cancer Prostate cancer Kidney disease Breast cancer Colorectal cancer Social History Smoking Status: Former smoker Tobacco Type: Cigarettes Age Started Using Tobacco: 14; Age Quit Using Tobacco: 29; packs per day: 1; Second Hand Exposure: No; Do You Dip or Chew Tobacco: No (used to chew tobacco, no longer does ); Hx Alcohol Use: No Hx Substance Use: No Preferred Language: Luxembourgish Communication Ability: Impaired Visual Impairment: Limited Hearing Ability: Hard of Hearing Material Dispatcher Required: No Beliefs That Will Affect Care: None marital status: Current Living Situation: Group Home current occupational status: retired 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 Feels Safe at Home: Yes Childhood Exposure to Second-Hand Smoke: Yes Diet: diabetic and ideal protein caffeine: Yes Dental Care, Regularly: No Physical Activity Frequency: Does not Exercise Seatbelt Use: always Sunscreen Use: No Assistive Devices: Cane, Oxygen - Continuous and Walker Review of Systems Review of Systems: See HPI above Physical Exam Physical Exam: General: no acute distress; non-toxic appearing; well-nourished; cooperative; SpO2 98% on 3L NC HEENT: normocephalic, atraumatic; no scleral icterus; PERRLA; moist mucus membrane with a slight abrasion on left side of tongue; dried blood hernández around the mouth; unable to assess vision and hearing Neck: supple; no lymphadenopathy; trachea midline Skin: warm, dry without signs of tenting; no cyanosis; no rashes, bruising, lesions, or erythema noted CV: chest wall NTP; RRR; S1/S2 normal; no murmurs/rubs/gallops; pulses intact and symmetric at radial, DP, and PT Lungs: Moderate respiratory distress at baseline; some conversational dyspnea s ymmetrical chest wall expansion; clear breath sounds across all lung sharma w/o adventitious sounds; no wheezing ABD: Soft, NTP; BS present; no rebound/guarding; no distention MSK: no tics or fasciculations; no edema noted in the LEs b/l, nonerythematous, brown in appearance Neuro: Patient is oriented to name/, but is not oriented to reason for hospitalization/month/year/location; fluent speech; no focal deficits appreciated; sensation intact in the LEs b/l Results & Data Results & Data Vital Signs (Past 12 Hours) Vital Signs Temp Pulse Pulse Resp BP Pulse Ox O2 Del Method 08/22/23 11:00 85 20 165/98 H 98 Nasal Cannula 08/22/23 09:27 90 04/10/24 09:07 93 Nasal Cannula 08/22/23 09:03 37.0 C 108 H 20 165/98 H 93 Nasal Cannula O2 Flow Rate 08/22/23 11:00 3 08/22/23 09:27 08/22/23 09:07 3 08/22/23 09:03 3 ECG Additional Comments: EKG revealed undetermined rhythm at 107 bpm; QTc 467 Code Status & VTE Plan Code Status DNR/DNI (per paperwork received from [facility], signed on 06/11/2023) VTE Prophylaxis Plan VTE Prophylaxis will be ordered: Yes Supervising Physician Co-Signing Physician Notes Patient seen and examined, chart reviewed, case discussed with Zachary Gaston and I agree with the assessment and plan as above except as otherwise noted Labs and images reviewed 78-year-old male with a history of Alzheimer's, COPD, A-fib on apixaban type II DM, heart failure who presented with suspected seizure-like activity. Initially reported as when walking however on collateral this was not correct, patient's episode occurred while in bed and he was postictal for around 20 minutes and confused. Tongue lesions are noted on admitting assessment. Patient was hypoglycemic in the 50s around time of episode. Given this hypoglycemic seizures most likely, dextrose is available on-call and BSG checks every hour until stable. No strokelike symptoms. Patient also with potential underlying pneumonia for which she has been covered with antibiotics. At bedside patient cooperative, no acute distress. Lungs are clear. Abdomen is nontender. Limited historian Agree with assessment and management above. Patient takes his Lantus at night, given hypoglycemic episode recommend transitioning his long- acting insulin to the morning and dose reducing. A1c is pending. Will hold insulin this evening agree with SSI. Lantus held on admission, if glycemic requirements are stable resume a.m. 08/22. Pharmacy consulted for assistance. PG Care Time/CCT Total # of Minutes Spent Total Time Spent with Patient: Total time spent is greater than 50% in coordination of care (as documented) at patient's floor/unit and/or counseling patient: Coding [place] [address] INT INP/OBS CARE 3/75MIN Patient Type Established Medical Decision Making High Complexity Diagnoses Seizure-like activity R56.9 Pneumonia J18.9 UTI (urinary tract infection) N39.0 Diabetes mellitus, type II, insulin dependent E11.9; Z79.4 Hypoglycemia E16.2 Chronic respiratory failure with hypoxia J96.11 Dementia F03.90 Atrial fibrillation I48.91 Chronic heart failure with preserved ejection fraction (HFpEF) I50.32
--- NOTE | 2023-08-22 12:18 | CT Scan Report ---
HEAD CT NONCONTRAST CT DOSE: 625.8 mGy.cm HISTORY: ams, syncope TECHNIQUE: Multiaxial CT images of the head were performed without the use of intravenous contrast. A utomated exposure control was utilized for this study. A dose lowering technique was utilized adheri ng to the principles of ALARA. Comparison: Head CT 08/24/2022. Findings: Mild mucosal thickening within the right maxillary sinus. The remaining paranasal sinuses a nd mastoid air cells are clear. The calvarium and skull base are intact. There is no mass, hematoma, midline shift, acute infarct. White matter hypodensity is nonspecific but suggestive of microvascular ischemic change. The ventricles and sulci demonstrate mild age-related involutional changes. Impression: No significant change compared to the prior study. No acute intracranial abnormality. ACT 112: Negative or not required by law. Electronically signed by: Zachary Gonzalez M.D. 08/22/2023 12:15 PM
[2023-08-22] MEDS: CEFEPIME 2,000 MG/20 ML VIAL IV STA (12:35)
[2023-08-22] MEDS: metroNIDAZOLE 500 MG/100 ML BAG IV STA (12:36)
[2023-08-22] MEDS: METOPROLOL SUCC 50MG EXT REL TAB PO STA (13:38)
[2023-08-22] MEDS: MAGNESIUM SULFATE / D5W 1 GM/100 ML BAG IV ONE (14:54)
[2023-08-22] MEDS ORDERED: GLUCOSE 10 TAB/TUBE PO PRN (15:58)
[2023-08-22] MEDS ORDERED: GLUCOSE 40% GEL 15 GM TUBE PO PRN (15:58)
[2023-08-22] MEDS ORDERED: CARBOHYDRATES FOR HYPOGLYCEMIA PO PRN (15:58)
[2023-08-22] MEDS ORDERED: ONDANSETRON INJ 2 MG/ML 2 ML VIAL IV PRN (15:58)
[2023-08-22] MEDS ORDERED: ALBUT/IPRATROP 3MG/0.5MG NEB 3 ML VIAL INH PRN (15:58)
[2023-08-22] MEDS ORDERED: GLUCAGON FOR INJ 1 MG VIAL SQ PRN (15:58)
[2023-08-22] MEDS ORDERED: PHARMACY GLYCEMIC MGMT CONSULT PRN (15:58)
--- NOTE | 2023-08-22 16:23 | Pharmacy Report ---
Pharmacy Glycemic Short Note 2 - Date of Service August 22, 2023 - Glycemic Short BSG Results (Last 24 hours): 08/22/23 08/22/23 08/22/23 08:51 09:39 12:45 Glucose 205 H POC Glucose 169 H 128 H 08/22/23 14:26 Glucose POC Glucose 107 H OUTPATIENT ANTIDIABETIC REGIMEN: * Lantus 46 units SQ HS * Fiasp 8 units TID meals * Insulin coverage for hyperglycemia (this would be given potentially in addition to the mealtime insulin): * Blood glucose 300-350 = 2 unit * Blood glucose 351-400 = 3 units * Blood glucose 401-450 = 4 units * Blood glucose 451-500 = 5 units * Blood glucose 501-550 = 6 units * Recently discontinued use of Jardiance d/t chronic indwelling catheter and UTIs ASSESSMENT: * 78 YO M with seizure-like activity today, admitted with pneumonia + cUTI, on IV Cefepime. * Type 2 DM, recent changes in outpatient regimen as listed above, will use similar insulin regimen as last admission and titrate to goal blood sugar. Higher goal range to prevent hypoglycemia. PLAN FOR INPATIENT GLYCEMIC CONTROL: * Basal insulin * Lantus 16 units SQ HS * Bolus insulin * NovoLog per scale ACHS or Q6hrs while NPO * Goal Range: Low 120 mg/dL - High 150 mg/dL * Correction Factor: 20 mg/dL/unit * Nutritional / Prandial insulin per carb ratio of 1 unit per 6 grams CHO consumed
[2023-08-22] MEDS: INSULIN ASPART PER UNIT CHARGE SC SCH (16:48)
[2023-08-22] MEDS: THIAMINE HCL 100 MG TAB PO SCH (18:14)
[2023-08-22] MEDS: ACETAMINOPHEN 500 MG TAB PO SCH (18:16)
[2023-08-22] MEDS: VIBEGRON 75 MG TAB PO SCH (18:19)
[2023-08-22] MEDS: TAMSULOSIN HCL 0.4 MG CAP PO SCH (18:22)
[2023-08-22] MEDS: FINASTERIDE 5 MG TAB PO SCH (18:24)
[2023-08-22] MEDS: hydrALAZINE TAB 50 MG TAB PO SCH ×2 (18:25)
[2023-08-22] MEDS: FUROSEMIDE 40 MG TAB PO SCH (18:28)
[2023-08-22] MEDS: POLYETHYLENE (MIRALAX) 17 GM PACK PO SCH (18:29)
[2023-08-22] MEDS: MAGNESIUM OXIDE 400 MG TAB PO SCH (18:29)
--- NOTE | 2023-08-22 18:56 | Magnetic Resonance Report ---
Brain MRI WITH AND WITHOUT CONTRAST HISTORY: Seizure-like activity TECHNIQUE: Multiplanar multisequence MRI of the brain was performed both before and after the intrave nous administration of contrast. COMPARISON STUDY: Head CT 08/22/2023. FINDINGS: There is no mass, hematoma, midline shift, or acute infarct. The paranasal sinuses are iglesia r. The mastoid air cells are clear. The ventricles and sulci demonstrate mild age-related involutiona l changes. Scattered foci of T2 hyperintensity seen within the periventricular and subcortical white matter are nonspecific but suggestive of mild microvascular ischemic changes. The major vascular flow voids at the skull base are well-maintained. Motion artifact results in suboptimal evaluation. IMPRESSION: Motion artifact. No definite acute intracranial abnormality. ACT 112: Negative or not required by law. Electronically signed by: Zachary Gonzalez M.D. 08/22/2023 6:54 PM
[2023-08-22] MEDS ORDERED: LANTUS PER UNIT CHARGE SQ SCH (21:00)
[2023-08-22] MEDS: amLODIPine BESYLATE 5 MG TAB PO SCH (21:15)
[2023-08-22] MEDS: APIXABAN 2.5 MG TAB PO SCH (21:15)
[2023-08-22] MEDS: CLOPIDOGREL BISULFATE 75 MG TAB PO SCH (21:15)
[2023-08-22] MEDS: SERTRALINE HCL 100 MG TABLET PO SCH (21:16)
[2023-08-22] MEDS: LATANOPROST 0.005% OP SOLN 2.5 ML BTL OPB SCH (21:16)
[2023-08-22] MEDS: DORZOLAMIDE HCL 2% OPH SOLN 10 ML BTL OPB SCH (21:16)
[2023-08-22] MEDS: MIRTAZAPINE TAB 15 MG TAB PO SCH (21:16)
[2023-08-22] MEDS: CEFEPIME 2,000 MG in SYRINGE 0 ML IV SCH (23:52)
[2023-08-23] MEDS: LEVOTHYROXINE SODIUM 100 MCG TABLET PO SCH (05:17)
[2023-08-23] MEDS: PANTOprazole 40 MG TAB PO SCH (05:17)
[2023-08-23] MEDS: DEXTROSE 50% 50 ML SYRINGE IV PRN (05:36)
[2023-08-23 07:13] LABS: Basophils # (auto) 0.08 K/uL (0.00-0.20); Basophils % (auto) 1.1 %; Hematocrit (blood only) 43.2 % (42.0-52.0); Hemoglobin 14.1 g/dl (14.0-18.0); Immature Granulocytes # (auto) 0.01 K/uL (0.01-0.20); Immature Granulocytes % (auto) 0.1 %; Lymphocytes # (auto) 0.78 K/uL (1.20-3.40); Lymphocytes % (auto) 10.4 %; Mean Corpuscular Hemoglobin 27.9 pg (25.0-34.0); Mean Corpuscular Hgb Conc 32.6 g/dL (32.0-36.0); Mean Corpuscular Volume 85.4 fL (80.0-100.0); Mean Platelet Volume 9.8 fL (9.4-12.4); Monocytes # (auto) 0.82 K/uL (0.11-0.59); Monocytes % (auto) 10.9 %; Neutrophils # (auto) 5.51 K/uL (1.40-6.50); Neutrophils % (auto) 73.5 %; Platelet Count 199 K/uL (130-400); RDW Coefficient of Variation 15.6 % (11.5-14.5); RDW Standard Deviation 48.5 fL (36.4-46.3); Red Blood Count 5.06 M/uL (4.70-6.10)
[2023-08-23 07:44] LABS: BUN Creatinine Ratio 13.8 (10-20); Calcium 9.1 mg/dl (8.6-10.3); Creatinine Clr Calc Pharmacy 38.7 ml/min; Est GFR (Non-African American) 34.5 ml/min; Magnesium 1.9 mg/dl (1.7-2.4); Potassium 3.6 mmol/L (3.5-5.1)
--- NOTE | 2023-08-23 08:09 | Hospitalist Progress Note ---
Date of Service August 23, 2023 Assessment & Plan (1) Seizure-like activity: Plan: Seizure-like activity while in bed at 0730 on the morning of 08/21; witnessed by [facility] nursing staff Jerking lasted approximately 1 minute Patient bit his tongue Postictal state for 15-20 minutes afterwards; glossy eyed, lethargic, jaw locked, not speaking Patient was hypoglycemic upon waking (58mg/dL) measured at 0600 No strokelike symptoms appreciated by nursing staff (no facial droop, slurred speech, or unilateral deficits) Per , patient may have had a seizure back when he was a teenager, but nothing since Head CT negative on arrival; okay to continue Eliquis Clinically, suspect hypoglycemia induced seizure (with additional contributing infection; see #2, #3) Prolactin ordered, pending Brain MRI with and without ordered, pending PT/OT consulted A.m. CBC, BMP, mag (2) Pneumonia: Plan: Leukocytosis at 15.93 with neutrophil predominance; afebrile CXR with findings consistent with pneumonia/infectious process Blood culture ordered, pending Cefepime 2000 mg IV q12h (3) UTI (urinary tract infection): Plan: Chronic indwelling Lomeli Placed in the ED UA positive on arrival, but given patient's advanced dementia unable to assess for UTI symptoms (denies burning sensation in the groin/suprapubic pain) Daily Lomeli catheter care Urine culture on 07/20/2023 was sensitive to cefepime Cefepime to cover (as above) Follow UCx (4) Diabetes mellitus, type II, insulin dependent: Plan: Last A1c at 8.4% on 07/13/2023 Glucose 169 on admission Patient normally takes Lantus 46u HS BSG q2h for now, then transition to [facility] glycemic consult given that he has recently been bouncing between hyperglycemia and hypoglycemia (238 on 08/20 at 2000 --> 58 on 08/21 at 0600) Nursing staff at [facility] also report he had been having issues with hypoglycemia the day prior to seizure-like activity Recommend Lantus BID while inpatient for now + SSI T2DM diet Adjust regimen as needed (5) Hypoglycemia: Plan: Likely contributed to seizure Diabetic management as above (6) Chronic respiratory failure with hypoxia: Plan: 3 L NC at baseline (7) Dementia: Plan: Alzheimer's, around baseline (8) Atrial fibrillation: Plan: Continue metoprolol, apixaban (9) Chronic heart failure with preserved ejection fraction (HFpEF): Plan: Continue Lasix Plan Disposition: Obs -admit to [facility] telemetry DNR/DNI AHA, low-salt, T2DM diet VTE PPx: On Eliquis Admission and Anticipated Discharge Date Admission Date: August 22, 2023 Results & Data Results & Data Vital Signs (Past 12 Hours) Vital Signs Temp Pulse Pulse Resp BP BP Pulse Ox 08/23/23 07:46 37.0 C 102 H 16 145/78 H 97 08/23/23 04:17 36.7 C 81 20 140/84 94 08/22/23 23:11 36.9 C 75 20 147/75 H 97 08/22/23 23:10 84 08/22/23 20:59 69 19 105/69 96 O2 Del Method O2 Flow Rate 08/23/23 07:46 Nasal Cannula 3 08/23/23 04:17 Nasal Cannula 3 08/22/23 23:11 Nasal Cannula 3 08/22/23 23:10 08/22/23 20:59 Nasal Cannula 3 (2) Pneumonia Laterality: bilateral Lung location: upper lobe of lung Pneumonia type: due to unspecified organism Qualified Code(s): J18.9 - Pneumonia, unspecified organism (3) UTI (urinary tract infection) Hematuria presence: with hematuria Urinary tract infection type: acute cystitis Qualified Code(s): N30.01 - Acute cystitis with hematuria (7) Dementia Dementia behavioral or psychological symptom: unspecified whether behavioral, psychotic, or mood disturbance or anxiety Dementia severity: unspecified severity Dementia type: unspecified type Qualified Code(s): F03.90 - Unspecified dementia, unspecified severity, without behavioral disturbance, psychotic disturbance, mood disturbance, and anxiety
[2023-08-23 08:27] LABS: C Reactive Protein 4.01 mg/dl (0-0.5)
[2023-08-23] MEDS: POTASSIUM CHLORIDE CRTAB 20 MEQ TABCR PO SCH (08:43)
[2023-08-23] MEDS: METOPROLOL SUCC 50MG EXT REL TAB PO SCH (08:43)
[2023-08-23] MEDS: LORATADINE 10 MG TAB PO SCH (08:43)
[2023-08-23] MEDS: FLUTICASONE FUROATE 100MCG 14 PUFFS/INHALER INH SCH (08:47)
[2023-08-23] MEDS ORDERED: NON-FORMULARY MEDICATION (Glucosamine Sulfate [Glucosamine] 500 mg Tablet) PO SCH (09:00)
--- NOTE | 2023-08-23 14:00 | Discharge Summary ---
Date of Service August 23, 2023 Admission HPI Per Admitting Provider Ramses is an 78-year-old male with PMH of Alzheimer's dementia, COPD with emphysema, chronic respiratory failure with hypoxia, atrial fibrillation (on apixaban), T2DM, HFpEF, and gait instability. He presented via EMS from [facility] for seizure-like activity while walking this morning on 08/21. Patient was with [facility] nursing students this morning, when he developed sudden onset of seizure-like activity in bed; exhibited jerking; bit his tongue; LOC; no loss of urinary continence, however chronic indwelling Lomeli was in place. No prior history of seizures. Of note, patient's blood sugar was low this morning; per records it was around 58 at 0600; glucagon was given. Patient did not receive any of his regular morning medications today. Per review of notes, he regularly takes insulin 46u Lantus at night. Patient has a chronic indwelling Lomeli catheter, which was replaced in the ED today. He is on supplemental oxygen at baseline; 3L NC. Patient is hypertensive at 165/98 at time of admission; SpO2 98% on 3L NC. [facility], but nursing staff reports two sons and sister were here earlier and made aware the patient will be admitted. ED course: Metronidazole 500 mg IV Cefepime 2000 mg IV NSS 500 mL IV Difficult to obtain ROS given patient's Alzheimer's dementia; however, he denies any pain at this time (no fever, chills, dizziness, lightheadedness, headache, chest pain, SOB, abdominal pain, N/V/D, suprapubic pain, burning sensation in the groin, or pain in arms or legs). Spoke on the phone with [facility] nursing staff (Kathi), who did not witness seizure-like activity, but was present for the postictal state. She reports that seizure-like activity occurred at approximately 0730 this morning while the patient was in bed and lasted for approximately 1 minute. Following this activity, patient was lethargic and glassy eyed. He was unable to speak his first word for 10 minutes, and was "in and out" of consciousness for 15 to 20 minutes following this. She also notes that his jaw was locked following seizure-like activity. Patient was experience some hypoglycemia yesterday on 08/20, as well as today. Addendum: Spoke to patient's at bedside later in the day and provided update regarding status. She reports patient may have had a seizure back when he was a teenager, but nothing since. No history of strokes to her knowledge. She does note that there is been a subacute change in cognitive baseline recently; over the past 2 weeks he has been less responsive with "increased staring". He also has been eating less. Admission Exam Per Admitting Provider General: no acute distress; non-toxic appearing; well-nourished; cooperative; SpO2 98% on 3L NC HEENT: normocephalic, atraumatic; no scleral icterus; PERRLA; moist mucus membrane with a slight abrasion on left side of tongue; dried blood hernández around the mouth; unable to assess vision and hearing Neck: supple; no lymphadenopathy; trachea midline Skin: warm, dry without signs of tenting; no cyanosis; no rashes, bruising, lesions, or erythema noted CV: chest wall NTP; RRR; S1/S2 normal; no murmurs/rubs/gallops; pulses intact and symmetric at radial, DP, and PT Lungs: Moderate respiratory distress at baseline; some conversational dyspnea symmetrical chest wall expansion; clear breath sounds across all lung sharma w/o adventitious sounds; no wheezing ABD: Soft, NTP; BS present; no rebound/guarding; no distention MSK: no tics or fasciculations; no edema noted in the LEs b/l, nonerythematous, brown in appearance Neuro: Patient is oriented to name/, but is not oriented to reason for hospitalization/month/year/location; fluent speech; no focal deficits appreciated; sensation intact in the LEs b/l Principal Diagnosis Seizure Discharge Exam General: no acute distress; non-toxic appearing; well-nourished; cooperative; SpO2 98% on 3L NC HEENT: normocephalic, atraumatic; no scleral icterus; PERRLA; moist mucus membrane with a slight abrasion on left side of tongue; dried blood hernández around the mouth; unable to assess vision and hearing Neck: supple; no lymphadenopathy; trachea midline Skin: warm, dry without signs of tenting; no cyanosis; no rashes, bruising, lesions, or erythema noted CV: chest wall NTP; RRR; S1/S2 normal; no murmurs/rubs/gallops; pulses intact and symmetric at radial, DP, and PT Lungs: Moderate respiratory distress at baseline; some conversational dyspnea symmetrical chest wall expansion; clear breath sounds across all lung sharma w/o adventitious sounds; no wheezing ABD: Soft, NTP; BS present; no rebound/guarding; no distention MSK: no tics or fasciculations; no edema noted in the LEs b/l, nonerythematous, brown in appearance Neuro: Patient is oriented to name/, but is not oriented to reason for hospitalization/month/year/location; fluent speech; no focal deficits appreciated; sensation intact in the LEs b/l Discharge Data Allergies Allergy/AdvReac Type Severity Reaction Status Date / Time Penicillins Allergy Severe FACIAL Verified 08/22/23 11:21 SWELLING AND RASH amoxicillin Allergy Intermediate RASH Verified 08/22/23 11:21 clavulanic acid Allergy Intermediate RASH Verified 08/22/23 11:21 azithromycin Allergy Unknown PER NEPHRO Verified 08/22/23 11:21 NOTE cholestyramine Allergy Unknown per nephro Verified 08/22/23 11:21 note niacin Allergy Unknown per nephro Verified 08/22/23 11:21 note phenylephrine Allergy Unknown per nephro Verified 08/22/23 11:21 note Gpbzblx-ESL-BsW Reductase AdvReac Intermediate JOINT Verified 08/22/23 11:21 Inhibitor STIFFNESS [Opsmpue-Rpg-Ntl Reductase AND PAIN Inhibitor] Consultations 08/22/23 11:43 ED Decision to Admit Stat Ordered Studies 08/22/23 11:37 CT head/brain wo con Stat 08/22/23 13:49 MR brain seizure wo con Stat Chest X-Ray 08/22/23 08:56 XR chest 1V portable CLINICAL HISTORY: Chest pain, nonspecific COMPARISON STUDY: Chest CT August 22, 2002. Chest radiograph August 29, 2022. FINDINGS: Lung volumes are mildly diminished. No pneumothorax or pleural effusion is present. Moderate cardiomegaly is unchanged. There is mild interstitial thickening with possible mild bilateral airspace opacities. IMPRESSION: Interstitial thickening with possible mild bilateral airspace opacities. The findings could reflect mild pulmonary edema or an infectious process. Radiographic follow-up to ensure resolution is recommended. ACT 112: Negative or not required by law. Electronically signed by: Dangelo Farfan M.D. 08/22/2023 9:[address] 08/22/23 11:[address] DOSE: 625.8 mGy.cm HISTORY: ams, syncope TECHNIQUE: Multiaxial CT images of the head were performed without the use of intravenous contrast. Automated exposure control was utilized for this study. A dose lowering technique was utilized adhering to the principles of ALARA. Comparison: Head CT 08/24/2022. Findings: Mild mucosal thickening within the right maxillary sinus. The remaining paranasal sinuses and mastoid air cells are clear. The calvarium and skull base are intact. There is no mass, hematoma, midline shift, acute infarct. White matter hypodensity is nonspecific but suggestive of microvascular ischemic change. The ventricles and sulci demonstrate mild age-related involutional changes. Impression: No significant change compared to the prior study. No acute intracranial abnormality. ACT 112: Negative or not required by law. Electronically signed by: Zachary Gonzalez M.D. 08/22/2023 12:15 PM Brain MRI 08/22/23 13:49 Brain MRI WITH AND WITHOUT CONTRAST HISTORY: Seizure-like activity TECHNIQUE: Multiplanar multisequence MRI of the brain was performed both before and after the intravenous administration of contrast. COMPARISON STUDY: Head CT 08/22/2023. FINDINGS: There is no mass, hematoma, midline shift, or acute infarct. The paranasal sinuses are clear. The mastoid air cells are clear. The ventricles and sulci demonstrate mild age-related involutional changes. Scattered foci of T2 hyperintensity seen within the periventricular and subcortical white matter are nonspecific but suggestive of mild microvascular ischemic changes. The major vascular flow voids at the skull base are well-maintained. Motion artifact results in suboptimal evaluation. IMPRESSION: Motion artifact. No definite acute intracranial abnormality. ACT 112: Negative or not required by law. Electronically signed by: Zachary Gonzalez M.D. 08/22/2023 6:54 PM Hospital Course (1) Seizure-like activity: (2) Pneumonia: (3) UTI (urinary tract infection): (4) Diabetes mellitus, type II, insulin dependent: (5) Hypoglycemia: (6) Chronic respiratory failure with hypoxia: (7) Dementia: (8) Atrial fibrillation: (9) Chronic heart failure with preserved ejection fraction (HFpEF): Plan #Seizure-like activity: -Seizure-like activity while in bed at 0730 on the morning of 08/21; witnessed by [facility] nursing staff -Jerking lasted approximately 1 minute -Patient bit his tongue -Postictal state for 15-20 minutes afterwards; glossy eyed, lethargic, jaw locked, not speaking -Patient was hypoglycemic upon waking (58mg/dL) measured at 0600 -No strokelike symptoms appreciated by nursing staff (no facial droop, slurred speech, or unilateral deficits) -Per , patient may have had a seizure back when he was a teenager, but nothing since -Head CT negative on arrival; okay to continue Eliquis Clinically, suspect hypoglycemia induced seizure (with additional contributing infection; see #2, #3) -Prolactin negative -Brain MRI with and without negative -A.m. CBC, BMP, mag #Pneumonia -Leukocytosis at 15.93 with neutrophil predominance; afebrile -CXR with findings consistent with pneumonia/infectious process -Blood culture ordered, pending -Cefepime 2000 mg IV q12h. Will send home on cefdinir 300mg BID for 5 days. #UTI (urinary tract infection) -Chronic indwelling Lomeli -Placed in the ED -UA positive on arrival, but given patient's advanced dementia unable to assess for UTI symptoms (denies burning sensation in the groin/suprapubic pain) -Daily Lomeli catheter care -Urine culture on 07/20/2023 was sensitive to cefepime -Cefepime to cover (as above). Will send home on cefdinir as above. #Diabetes mellitus, type II, insulin dependent -Last A1c at 8.4% on 07/13/2023 -Glucose 169 on admission -Patient normally takes Lantus 46u HS -BSG q2h for now, then transition to [facility] -[facility]urs[facility] staff at [facility] also report he had been having issues with hypoglycemia the day prior to seizure-like activity -Lantus BID while inpatient for now + SSI -T2DM diet -Will adjust medications to: * Lantus 35mg qhs * Continue on insulin 8 units TID with Sliding scale. May need to be adjusted based on sugars levels at meals. * Hold dinner time insulin on 08/22. #Hypoglycemia -Likely contributed to seizure -Diabetic management as above #Chronic respiratory failure with hypoxia -3 L NC at baseline #Dementia -Alzheimer's, around baseline #Atrial fibrillation: -Continue metoprolol, apixaban #Chronic heart failure with preserved ejection fraction (HFpEF) -Continue Lasix Total Time Total Time Spent Total Time Spent (In Minutes): <30 mins Discharge Plan Discharge Items Patient Disposition: Home - Self-Care Reason For Visit: SEIZURE-LIKE ACTIVITY Discharge Diagnosis: Seizure Activity: Resume your previous activity Non-emergency contact: Primary Care Provider Call non-emergency contact if: you have any medication questions, your pain is concerning for you and your temperature is above 101.5 Follow-up/Referrals: [facility] [Primary Care Provider] - Diet: Carb Consistent or DM2, Heart Healthy and Low Sodium (2gm) Diet Texture: Dental soft (bite-sized) Addtl Attending Provider Instructions: #Seizure-like activity: -Seizure-like activity while in bed at 0730 on the morning of 08/21; witnessed by [facility] nursing staff -Jerking lasted approximately 1 minute -Patient bit his tongue -Postictal state for 15-20 minutes afterwards; glossy eyed, lethargic, jaw locked, not speaking -Patient was hypoglycemic upon waking (58mg/dL) measured at 0600 -No strokelike symptoms appreciated by nursing staff (no facial droop, slurred speech, or unilateral deficits) -Per , patient may have had a seizure back when he was a teenager, but nothing since -Head CT negative on arrival; okay to continue Eliquis Clinically, suspect hypoglycemia induced seizure (with additional contributing infection; see #2, #3) -Prolactin negative -Brain MRI with and without negative -A.m. CBC, BMP, mag #Pneumonia -Leukocytosis at 15.93 with neutrophil predominance; afebrile -CXR with findings consistent with pneumonia/infectious process -Blood culture ordered, pending -Cefepime 2000 mg IV q12h. Will send home on cefdinir 300mg BID for 5 days. #UTI (urinary tract infection) -Chronic indwelling Lomeli -Placed in the ED -UA positive on arrival, but given patient's advanced dementia unable to assess for UTI symptoms (denies burning sensation in the groin/suprapubic pain) -Daily Lomeli catheter care -Urine culture on 07/20/2023 was sensitive to cefepime -Cefepime to cover (as above). Will send home on cefdinir as above. #Diabetes mellitus, type II, insulin dependent -Last A1c at 8.4% on 07/13/2023 -Glucose 169 on admission -Patient normally takes Lantus 46u HS -BSG q2h for now, then transition to [facility] -Nursing staff at [facility] also report he had been having issues with hypog lycemia the day prior to seizure-like activity -Lantus BID while inpatient for now + SSI -T2DM diet -Will adjust medications to: * Lantus 35mg qhs * Continue on insulin 8 units TID with Sliding scale. May need to be adjusted based on sugars levels at meals. * Hold dinner time insulin on 08/22. #Hypoglycemia -Likely contributed to seizure -Diabetic management as above #Chronic respiratory failure with hypoxia -3 L NC at baseline #Dementia -Alzheimer's, around baseline #Atrial fibrillation: -Continue metoprolol, apixaban #Chronic heart failure with preserved ejection fraction (HFpEF) -Continue Lasix Pending Studies at Discharge: No Stand-Alone Forms: My DocDoc, Smoking Cessation Medications and DC Order Prescriptions: New cefdinir 300 mg capsule 300 mg PO BID 5 Days Qty: 10 0RF Continued (DME) insulin syringe-needle U-100 [BD Insulin Syringe Ultra-Fine] 0.5 mL 31 gauge x 5/16" syringe See Rx Instructions .ROUTE .MEDSUPPLY Qty: 300 3RF Rx Instructions: Three times a day metoprolol succinate 100 mg tablet extended release 24 hr 100 mg PO QAM Qty: 90 3RF Rx Instructions: HOLD FOR SBP <100, OR DBP <70 (DME) pen needle, diabetic [BD Ultra-Fine Short Pen Needle] 31 gauge x 5/16" needle See Rx Instructions .ROUTE .MEDSUPPLY Qty: 100 3RF Rx Instructions: One daily (DME) OneTouch Ultra Test Strip See Rx Instructions .Route Qty: 400 3RF Rx Instructions: Test blood sugars 4 times a day Trelegy Ellipta 100-62.5-25 mcg blister with device 1 inh inhalation DAILY Qty: 60 5RF tamsulosin 0.4 mg capsule 0.4 mg PO DAILY Qty: 90 1RF finasteride 5 mg tablet 5 mg PO DAILY Qty: 90 1RF Gemtesa 75 mg tablet 75 mg PO DAILY Qty: 30 5RF nitroglycerin [Nitrostat] 0.4 mg tablet, sublingual 0.4 mg Sublingual UD PRN (Reason: Chest Pain) Qty: 1 5RF Rx Instructions: TAKES 1 TAB UNDER TONGUE EVERY 5 MINUTES NEEDED levothyroxine 100 mcg tablet 100 mcg PO DAILYBB cholecalciferol (vitamin D3) 125 mcg (5,000 unit) capsule 125 mcg PO DAILY (DME) Aeroneb Go Nebulizer Misc See Rx Instructions .MEDSUPPLY Qty: 1 0RF Rx Instructions: With tubing and supplies. J44.9. J45.9. (DME) lancets [OneTouch UltraSoft Lancets] Misc See Rx Instructions .ROUTE .MEDSUPPLY Qty: 400 3RF Rx Instructions: Test blood sugar four times a day mirtazapine 15 mg tablet 7.5 mg PO HS loratadine [Allergy Relief (loratadine)] 10 mg tablet 10 mg PO DAILY Eliquis 2.5 mg tablet 2.5 mg PO BID Fiasp U-100 Insulin 100 unit/mL solution 8 unit subcut TIDM Rx Instructions: PLUS SLIDING SCALE IN ADDITION TO 8 UNITS: BSG 300-350=2 UNITS, 351-400=3 UNITS, 401-450=4 UNITS, 451-500=5 UNITS, 501-550=6 UNITS, hydralazine 100 mg tablet 100 mg PO TID Rx Instructions: TOTAL DOSE 150 MG--TAKES WITH 50 MG TAB. HOLD FOR SBP <100, DBP <70 acetaminophen [Tylenol Extra Strength] 500 mg tablet 1,000 mg PO BIDM hydralazine 50 mg tablet 50 mg PO TID Rx Instructions: TOTAL DOSE 150 MG--TAKES WITH 100 MG TAB. HOLD FOR SBP <100, DBP <70 amlodipine 2.5 mg tablet 2.5 mg PO HS Rx Instructions: HOLD FOR SBP <100, DBP <70 latanoprost [Xalatan] 0.005 % Drops 1 drp OPB HS glucosamine sulfate [Glucosamine] 500 mg Tablet 2 tabs PO QAM furosemide 40 mg Tablet 40 mg PO QAM Qty: 0 0RF dorzolamide 2 % Drops 1 drp OPB BID acetaminophen [Tylenol] 325 mg Tablet 650 mg PO Q6H PRN (Reason: PAIN/FEVER >100) magnesium oxide 500 mg magnesium Tablet 500 mg PO DAILY ipratropium-albuterol 0.5 mg-3 mg(2.5 mg base)/3 mL solution for nebulization 3 ml inhalation Q2H PRN (Reason: shortness of breath or wheezing) polyethylene glycol 3350 [Miralax] 17 gram powder in packet 17 g PO BIDM sertraline 100 mg tablet 100 mg PO HS thiamine HCl (vitamin B1) 100 mg tablet 200 mg PO BIDM clopidogrel 75 mg tablet 75 mg PO Q OTHER DAY Rx Instructions: Even Days, at bedtime. pantoprazole 40 mg tablet,delayed release (DR/EC) 40 mg PO DAILYBB potassium chloride 20 mEq tablet extended release 20 meq PO QAM Changed insulin glargine [Lantus U-100 Insulin] 100 unit/mL solution 35 unit subcut HS Qty: 50 3RF Discharge Orders: Discharge Order (Routine); Ordered 08/23/23 Ordered By: Barney Pereira Admission Data Admit Date/Time: 08/22/23 13:06 Attending Provider: Al Fierro Admit Provider: Valentino Meyers Primary Care Provider: [facility] Other Providers: Valentino Meyers Other Interventions: Discharge Summary Assessment (RN) Last Done: 08/23/23 14:28 Supervising Physician Co-Signing Physician Notes I personally examined the patient and verified all vivas points of history and exam, discussed case, and agree with decision making with Dr Pereira no meaningful HPI or ROS. notes that she learned he had a seizure at age 9 as well. sugars have been low but also appetite has been poor vitals noted nad heent nc at mmm breathing unlabored no accessory muscles no r/r/w mod spontaneous effort skin no rashes no pallor or icterus. neuro no focal deficits seizure - likely hypoglycemia + brain changes w dementia. first seizure in ~70yrs and no gross structural brain disease (no bleed/tumor/etc) - no clear benefit to anticonvulsant at thsi time. DM on insulin w hypoglycemia - poor PO intake recently. reduce basal. continue basal/bolus - adjust with PO intake, continue to follow sugars questionable infections (both questionable pneumonia and UTI vs asymptomatic bacteruria) - clinically i don't suspect he has any true infection and suspect the leukocytosis was demargination from seizure; however, with the inability to obtain reliable hx from pt the leukocytosis (while probably demargination) does make it fairly hard to discount either or both- abx, follow up. safe for return to SNF otherwise as above
--- NOTE | 2023-08-23 16:19 | Billing Data ---
Date of Service August 23, 2023 Coding Level of Care Code 06745 IN/OBS DISCH 30 MIN/LESS
[2023-08-23] MEDS ORDERED: LANTUS PER UNIT CHARGE SC SCH (21:00)
--- NOTE | 2023-08-24 05:58 | Electrocardiogram Report ---
Test Reason : Blood Pressure : / mmHG Vent. Rate : 107 BPM Atrial Rate : 098 BPM P-R Int : 000 ms QRS Dur : 072 ms QT Int : 350 ms P-R-T Axes : 000 -33 077 degrees QTc Int : 467 ms Atrial fibrillation with rapid ventricular response with premature ventricular or aberrantly conducte d complexes Left axis deviation Low voltage QRS Cannot rule out Anterior infarct , age undetermined Abnormal ECG When compared with ECG of 22-AUG-2022 09:17, No significant change Confirmed by Adolph Vines ([id number]) on 08/24/2023 5:57:54 AM Referred By: Valentino Meyers Confirmed By:Adolph Vines
== END 2023-08-23 17:01 | disposition home or self-care (01) ==
LOC: EDINP 08:46 → ED 08:46 → SUATTDRO 13:06 → 2N 13:45

== ENCOUNTER 2024-08-14 13:37 | Inpatient (IN) ==
--- NOTE | 2024-08-14 13:46 | Emergency Department Note ---
Impression & Plan OLIVER (acute kidney injury), Acute hypotension, Complicated urinary tract infection, Acute dehydration, Elevated troponin ED Provider Note NAME: JAMIE CANO AGE: 79 SEX: M : 1945 ARRIVES VIA: Ambulance INFORMANT: Patient, nursing reports ED PROVIDER(S): Demarcus Hong MD CHIEF COMPLAINT: Period of unresponsiveness, hypotension MEDICAL DECISION MAKING: Patient presents with the above. The patient already did receive IV fluids known history of CHF. Will defer additional IV fluids given the patient's reassuring vital signs at bedside. On chronic 2 L at all time. Patient is not ill in appearance. Blood work is obtained along with a VBG and urinalysis. Patient's blood work shows a white count of 14 with a hemoglobin of 13.5 normal platelet count VBG without signs of hypercarbia. Creatinine elevated at 3 today with a baseline of 1.7. The patient did receive a liter and route but vitals are stable at the time of arrival. The patient was noted to have some softer blood pressures and additional IV fluids 500 cc ordered. After further discussion and review of the patient's complicated UTI history patient did have prior MRSA and ESBL I did speak with the ED pharmacist and the patient was ordered vancomycin and meropenem. The patient did not receive 30 cc/kg bolus as the patient has a known history of CHF. Initial troponin of 21. Repeat was 22. No active chest pain. I did speak the on-call hospitalist service Dr. Min and the patient was admitted to the medicine service. Discussion w/ other healthcare providers: None Prior /Outside records reviewed: I reviewed part of a cardiology visit from April 2024. Known history of chronic heart failure with preserved ejection fraction hypertension A-fib CAD status post stent LAD restrictive lung disease chronic anticoagulant and hyperlipidemia. Also history of severe COPD in addition to the restrictive lung disease. Baseline creatinine 2-2.5. With regard to the patient's A-fib on chronic metoprolol and apixaban. Differential diagnosis: Infection, dehydration, metabolic abnormality, hypo/hyperglycemia, electrolyte imbalance, anemia, UTI, pneumonia, thyroid dysfunction among others were considered. Diagnostics, as interpreted by me: ECG: A-fib, rate of 70, normal QRS normal axis no ST elevations. Cardiac monitoring: An order was placed for continuous cardiac monitoring. The monitor shows a rate of 75 with irregularly irregular rhythm. Patient was placed on pulse oximetry Medical decision rules: None Imaging studies: I informally interpreted the patient's chest x-ray does not show pneumothorax with formal report to follow. HPI: Patient presents due to concern for episode of unresponsiveness. The patient reportedly had low blood pressure 60s over 30s for staff as well as when EMS arrived. The patient did receive IV fluids. No history of dementia. The patient does not remember passing out. Patient denies any chest pains or shortness of breath. The patient denies any head neck chest back or abdominal pain. Patient denies any nausea or vomiting believes that his appetite has been appropriate. Patient's BSG prior to arrival was in the 300s. did eventually arrive states that his blood sugar has been up and down. PAST MEDICAL HISTORY: See Below PAST SURGICAL HISTORY: See Below SOCIAL HISTORY: See Below HOME MEDICATIONS: See Below ALLERGIES: See Below VITALS: See Below PHYSICAL EXAMINATION: GENERAL: NAD, non-toxic. EYE EXAM: Normal conjunctiva. PERRL, no anisocoria and EOM's grossly intact w/o pain. OROPHARYNX: Moist mucus membranes, grossly normal dentition. NECK: Trachea midline, no stridor. Supple, no nuchal rigidity, no adenopathy, non-tender. No signs of meningismus. FROM of the neck with good chin to chest and neck extension. LUNGS: Clear to auscultation. Normal chest wall mechanics. HEART: NSR, no MRG. ABDOMEN: Abdomen soft, non-tender, no masses, no rebound or guarding. BACK: No CVA TTP. SKIN: No rashes and no bruising. UPPER EXTREMITIES: Upper extremities are grossly normal. LOWER EXTREMITIES: Grossly normal, no edema. NEURO EXAM: A&O x3, cranial nerves II-XII grossly intact, normal speech, moves all 4 extremities. Past Med/Surg History Problem List (Updated 08/14/24 @ 20:51 by Demarcus Hong MD) Elevated troponin (Acute) Acute dehydration (Acute) Complicated urinary tract infection (Acute) Acute hypotension (Acute) OLIVER (acute kidney injury) (Acute) Sacral back pain Atrial fibrillation metoprolol/apixaban Dementia (Acute) Hypoglycemia Chronic heart failure with preserved ejection fraction (HFpEF) Vitamin D deficiency Mycotic toenails Malignant neoplasm of bladder Hyperlipidemia Hearing loss Glaucoma Dysphagia causing pulmonary aspiration with swallowing Diabetic peripheral neuropathy (Chronic) Diabetic nephropathy Diabetes mellitus, type II, 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 Joseph Depressed Chronic respiratory failure with hypoxia Hypersomnia COPD with emphysema Statin myopathy Urinary frequency Acquired cognitive dysfunction Leaking of urine Muscular deconditioning (Chronic) Gait instability (Chronic) Abnormal ankle brachial index (YAJAIRA) (Acute) Medical History Syncope Seizure-like activity Episode of syncope UTI (urinary tract infection) Pneumonia Dilatation of colon Acute metabolic encephalopathy Multiple fractures of ribs, right side, initial encounter for closed fracture Compression fracture of L1 lumbar vertebra Back pain PAD (peripheral artery disease) Traumatic open wound of lower leg History of restrictive lung disease Chronic systolic CHF (congestive heart failure) Chronic renal failure (CRF), stage 3b OLIVER (acute kidney injury) Diabetes mellitus type 2, uncontrolled Rhabdomyolysis Pneumonia due to COVID-19 virus COVID Acute respiratory failure with hypoxia Diabetic ulcer of right foot Traumatic open wound of right lower leg Diabetic ulcer of toe of left foot associated with type 2 diabetes mellitus, limited to breakdown of skin BPH with obstruction/lower urinary tract symptoms Diabetic ulcer of toe of left foot Chronic diastolic congestive heart failure, NYHA class 2 Bladder cancer COPD exacerbation Dysphagia WALL (dyspnea on exertion) On home O2 2 LPM PRN COPD (chronic obstructive pulmonary disease) CAD (coronary artery disease) follows with Dr. Motley BPH (benign prostatic hyperplasia) Permanent atrial fibrillation Depression (Unknown) CAD (coronary artery disease) Tracheomalacia Resting tremor Exertional shortness of breath Morbid obesity Restrictive lung disease WALL (dyspnea on exertion) Bronchospasm Acute diastolic CHF (congestive heart failure) Diabetes mellitus with neurological manifestations, uncontrolled Diabetic retinopathy, nonproliferative, mild Hypertension Odynophagia Degenerative disc disease History of colon polyps GERD (gastroesophageal reflux disease) Cancer of skin of left ear removed Cancer of skin of back removed Bladder cancer 2014--sx Hearing deficit Alzheimer disease on donepezil Surgical History History of skin surgery removal of basal cell carcinoma from L side of face, 08/24/[address] Velazquez History of colonoscopy History of bladder surgery 2014 bladder tumor removal @ [facility] History of tonsillectomy and adenoidectomy History of bilateral cataract extraction History of cardiac cath x3--2012, 2014, 2017 @ [facility] H/O heart artery stent (2015) 2012 x 1 2015 x 3 2017 x 1 ( showed severe 99 % mid RCA in stent restenoses which was treated with drug-eluting stent) Family History Mother Family history of diabetes mellitus COPD (chronic obstructive pulmonary disease) Lung cancer Father Family history of diabetes mellitus Acute appendicitis Brother Hx of CABG Myocardial infarction Sister Heart disease Myocardial infarction Other Coronary heart disease Denies family history of Ovarian cancer Prostate cancer Kidney disease Breast cancer Colorectal cancer Social History Smoking Status: Never smoker Tobacco Type: Cigarettes Age Started Using Tobacco: 14; Age Quit Using Tobacco: 29; packs per day: 1; Second Hand Exposure: No; Do You Dip or Chew Tobacco: No (used to chew tobacco, no longer does ); Hx Alcohol Use: No Hx Substance Use: No Preferred Language: [place] Communication Ability: Effective Visual Impairment: Limited Hearing Ability: Hard of Hearing Medic Technician Required: No Beliefs That Will Affect Care: None marital status: Current Living Situation: Longterm current occupational status: retired 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 Feels Safe at Home: Yes Childhood Exposure to Second-Hand Smoke: Yes Diet: diabetic and ideal protein caffeine: Yes Dental Care, Regularly: No Physical Activity Frequency: Does not Exercise Seatbelt Use: always Sunscreen Use: No Assistive Devices: Oxygen - Continuous, Walker and Wheelchair Allergies Allergies Allergy/AdvReac Type Severity Reaction Status Date / Time Penicillins Allergy Severe FACIAL Verified 08/01/24 13:20 SWELLING AND RASH amoxicillin Allergy Intermediate RASH Verified 08/01/24 13:20 clavulanic acid Allergy Intermediate RASH Verified 08/01/24 13:20 azithromycin Allergy Unknown PER NEPHRO Verified 08/01/24 13:20 NOTE cholestyramine Allergy Unknown per nephro Verified 08/01/24 13:20 note niacin Allergy Unknown per nephro Verified 08/01/24 13:20 note phenylephrine Allergy Unknown per nephro Verified 08/01/24 13:20 note Plowgsi-XVK-UgU Reductase AdvReac Intermediate JOINT Verified 08/01/24 13:20 Inhibitor STIFFNESS [Zgiarmf-Fvh-Ihp Reductase AND PAIN Inhibitor] Home Meds Home Medications Medication Instructions Recorded Confirmed glucosamine sulfate 500 mg tablet 2 tabs PO QAM 03/13/18 08/14/24 (Glucosamine) latanoprost 0.005 % eye drops 1 drp OPB HS 03/13/18 08/14/24 (Xalatan) levothyroxine 100 mcg tablet 100 mcg PO DAILYBB 08/08/22 08/14/24 loratadine 10 mg tablet (Allergy 10 mg PO QAM 03/29/23 08/14/24 Relief (loratadine)) acetaminophen 500 mg tablet 1,000 mg PO BIDM 07/27/23 08/14/24 (Tylenol Extra Strength) hydralazine 100 mg tablet 100 mg PO TID 07/27/23 08/14/24 hydralazine 50 mg tablet 50 mg PO TID 07/27/23 08/14/24 acetaminophen 325 mg tablet 650 mg PO Q6H PRN PAIN/FEVER >100 08/22/23 08/14/24 (Tylenol) magnesium oxide 500 mg PO QAM 08/22/23 08/14/24 pantoprazole 40 mg tablet,delayed 40 mg PO DAILYBB 08/22/23 08/14/24 release polyethylene glycol 3350 17 gram 17 g PO BIDM 08/22/23 08/14/24 oral powder packet (Miralax) potassium chloride 20 mEq 20 meq PO QAM 08/22/23 08/14/24 tablet,extended release thiamine HCl (vitamin B1) 100 mg 200 mg PO BIDM 08/22/23 08/14/24 tablet melatonin 5 mg tablet 5 mg PO HS 01/22/24 08/14/24 insulin aspart (niacinamide) 25 unit subcut DAILY 08/01/24 08/14/24 (U-100) 100 unit/mL subcutaneous solution (Fiasp U-100 Insulin) insulin glargine 100 unit/mL 40 unit subcut HS 08/01/24 08/14/24 subcutaneous solution (Lantus U-100 Insulin) amlodipine 2.5 mg tablet 2.5 mg PO HS 08/14/24 08/14/24 apixaban 2.5 mg tablet (Eliquis) 2.5 mg PO BID 08/14/24 08/14/24 cholecalciferol (vitamin D3) 125 125 mcg PO QAM 08/14/24 08/14/24 mcg (5,000 unit) tablet (Vitamin D3) clopidogrel 75 mg tablet 75 mg PO Q OTHER DAY 08/14/24 08/14/24 dorzolamide 2 % eye drops 1 drp OPB AMHS 08/14/24 08/14/24 finasteride 5 mg tablet 5 mg PO QAM 08/14/24 08/14/24 fluticasone fur. 100 mcg-umeclid 1 inh inhalation QAM 08/14/24 08/14/24 62.5 mcg-vilant 25 mcg inhalat.powder (Trelegy Ellipta) fluticasone propionate 50 2 spray intranasal DAILY 08/14/24 08/14/24 mcg/actuation nasal spray,suspension furosemide 80 mg tablet 80 mg PO QAM 08/14/24 08/14/24 sertraline 25 mg tablet 25 mg PO HS 08/14/24 08/14/24 sertraline 50 mg tablet 50 mg PO HS 08/14/24 08/14/24 tamsulosin 0.4 mg capsule 0.4 mg PO QAM 08/14/24 08/14/24 vibegron 75 mg tablet (Gemtesa) 75 mg PO QAM 08/14/24 08/14/24 Previous Rx's Medication Instructions Recorded nitroglycerin 0.4 mg sublingual 0.4 mg sublingual UD PRN Chest 03/12/19 tablet (Nitrostat) Pain #1 btl OneTouch UltraSoft Lancets #400 ea 05/23/19 (lancets) insulin syringe-needle U-100 0.5 #300 ea 08/13/19 mL 31 gauge x 5/16" (BD Insulin Syringe Ultra-Fine) nebulizers (Aeroneb Go Nebulizer) #1 ea 10/04/20 metoprolol succinate 100 mg 100 mg PO QAM #90 tabs 01/02/22 tablet,extended release 24 hr BD Ultra-Fine Short Pen Needle 31 #100 ea 01/17/22 gauge x 5/16" (pen needle, diabetic) blood sugar diagnostic (OneTouch #400 ea 01/23/22 Ultra Test strips) Results & Data (ED) Vital Signs Vital Signs - 24 hr 08/14/24 13:45 08/14/24 13:45 08/14/24 13:45 Temperature Temperature Source Pulse Rate Pulse Rate [Apical] Pulse Rate from SpO2 Sensor Pulse Rhythm Respiratory Rate Respiratory Effort / Characteristics Respiratory Depth Respiratory Pattern Blood Pressure 127/60 127/60 127/60 Blood Pressure [Right Arm] Blood Pressure Mean 76 76 76 Blood Pressure Mean [Right Arm] Blood Pressure Position [Right Arm] Pulse Oximetry Oxygen Delivery Method Oxygen Flow Rate Sepsis Recent Fever Within 48 Hours Sepsis New/Unexplained Change in Mental Status Sepsis Action Taken by Nursing 08/14/24 13:47 08/14/24 14:00 08/14/24 14:00 Temperature Temperature Source Pulse Rate 67 Pulse Rate [Apical] Pulse Rate from SpO2 Sensor Pulse Rhythm Respiratory Rate Respiratory Effort / Characteristics Respiratory Depth Respiratory Pattern Blood Pressure 114/70 114/70 Blood Pressure [Right Arm] Blood Pressure Mean 84 84 Blood Pressure Mean [Right Arm] Blood Pressure Position [Right Arm] Pulse Oximetry Oxygen Delivery Method Oxygen Flow Rate Sepsis Recent Fever Within 48 Hours Sepsis New/Unexplained Change in Mental Status Sepsis Action Taken by Nursing 08/14/24 14:00 08/14/24 14:01 08/14/24 14:01 Temperature 36.7 C Temperature Source Oral Pulse Rate 73 Pulse Rate [Apical] Pulse Rate from SpO2 Sensor Pulse Rhythm Respiratory Rate 15 Respiratory Effort / Characteristics Non-Labored Spontaneous Respiratory Depth Normal Respiratory Pattern Blood Pressure 114/70 90/57 L Blood Pressure [Right Arm] Blood Pressure Mean 84 68 Blood Pressure Mean [Right Arm] Blood Pressure Position [Right Arm] Pulse Oximetry 97 97 Oxygen Delivery Method Nasal Cannula Nasal Cannula Oxygen Flow Rate 2 2 Sepsis Recent Fever Within 48 Hours No Sepsis New/Unexplained Change in Mental Status N/A Sepsis Action Taken by Nursing No Action Required 08/14/24 14:01 08/14/24 14:03 08/14/24 14:12 Temperature Temperature Source Pulse Rate 72 66 Pulse Rate [Apical] Pulse Rate from SpO2 Sensor 73 64 Pulse Rhythm Respiratory Rate 16 17 Respiratory Effort / Characteristics Non-Labored Spontaneous Respiratory Depth Normal Respiratory Pattern Blood Pressure Blood Pressure [Right Arm] Blood Pressure Mean Blood Pressure Mean [Right Arm] Blood Pressure Position [Right Arm] Pulse Oximetry 100 100 Oxygen Delivery Method Oxygen Flow Rate Sepsis Recent Fever Within 48 Hours Sepsis New/Unexplained Change in Mental Status Sepsis Action Taken by Nursing 08/14/24 14:15 08/14/24 14:15 08/14/24 14:15 Temperature Temperature Source Pulse Rate Pulse Rate [Apical] Pulse Rate from SpO2 Sensor Pulse Rhythm Respiratory Rate Respiratory Effort / Characteristics Respiratory Depth Respiratory Pattern Blood Pressure 108/60 108/60 108/60 Blood Pressure [Right Arm] Blood Pressure Mean 78 78 78 Blood Pressure Mean [Right Arm] Blood Pressure Position [Right Arm] Pulse Oximetry Oxygen Delivery Method Oxygen Flow Rate Sepsis Recent Fever Within 48 Hours Sepsis New/Unexplained Change in Mental Status Sepsis Action Taken by Nursing 08/14/24 14:15 08/14/24 14:21 08/14/24 14:30 Temperature Temperature Source Pulse Rate 68 66 Pulse Rate [Apical] Pulse Rate from SpO2 Sensor 68 71 Pulse Rhythm Respiratory Rate 17 14 Respiratory Effort / Characteristics Respiratory Depth Respiratory Pattern Blood Pressure 108/60 Blood Pressure [Right Arm] Blood Pressure Mean 78 Blood Pressure Mean [Right Arm] Blood Pressure Position [Right Arm] Pulse Oximetry 99 100 Oxygen Delivery Method Oxygen Flow Rate Sepsis Recent Fever Within 48 Hours Sepsis New/Unexplained Change in Mental Status Sepsis Action Taken by Nursing 08/14/24 14:30 08/14/24 14:30 08/14/24 14:30 Temperature Temperature Source Pulse Rate Pulse Rate [Apical] Pulse Rate from SpO2 Sensor Pulse Rhythm Respiratory Rate Respiratory Effort / Characteristics Respiratory Depth Respiratory Pattern Blood Pressure 84/73 L 84/73 L 84/73 L Blood Pressure [Right Arm] Blood Pressure Mean 80 80 80 Blood Pressure Mean [Right Arm] Blood Pressure Position [Right Arm] Pulse Oximetry Oxygen Delivery Method Oxygen Flow Rate Sepsis Recent Fever Within 48 Hours Sepsis New/Unexplained Change in Mental Status Sepsis Action Taken by Nursing 08/14/24 14:30 08/14/24 14:30 08/14/24 14:30 Temperature Temperature Source Pulse Rate Pulse Rate [Apical] Pulse Rate from SpO2 Sensor Pulse Rhythm Respiratory Rate Respiratory Effort / Characteristics Respiratory Depth Respiratory Pattern Blood Pressure 84/73 L 84/73 L 84/73 L Blood Pressure [Right Arm] Blood Pressure Mean 80 80 80 Blood Pressure Mean [Right Arm] Blood Pressure Position [Right Arm] Pulse Oximetry Oxygen Delivery Method Oxygen Flow Rate Sepsis Recent Fever Within 48 Hours Sepsis New/Unexplained Change in Mental Status Sepsis Action Taken by Nursing 08/14/24 14:36 08/14/24 14:46 08/14/24 14:46 Temperature Temperature Source Pulse Rate 69 Pulse Rate [Apical] Pulse Rate from SpO2 Sensor 73 Pulse Rhythm Respiratory Rate 15 Respiratory Effort / Characteristics Respiratory Depth Respiratory Pattern Blood Pressure 111/44 L 111/44 L Blood Pressure [Right Arm] Blood Pressure Mean 58 58 Blood Pressure Mean [Right Arm] Blood Pressure Position [Right Arm] Pulse Oximetry 100 Oxygen Delivery Method Oxygen Flow Rate Sepsis Recent Fever Within 48 Hours Sepsis New/Unexplained Change in Mental Status Sepsis Action Taken by Nursing 08/14/24 15:15 08/14/24 15:30 08/14/24 15:46 Temperature Temperature Source Pulse Rate 76 Pulse Rate [Apical] Pulse Rate from SpO2 Sensor Pulse Rhythm Regular Respiratory Rate 20 Respiratory Effort / Characteristics Respiratory Depth Respiratory Pattern Blood Pressure 112/61 89/51 L Blood Pressure [Right Arm] Blood Pressure Mean 75 58 Blood Pressure Mean [Right Arm] Blood Pressure Position [Right Arm] Pulse Oximetry 96 Oxygen Delivery Method Nasal Cannula Oxygen Flow Rate Sepsis Recent Fever Within 48 Hours Sepsis New/Unexplained Change in Mental Status Sepsis Action Taken by Nursing 08/14/24 15:50 08/14/24 15:54 08/14/24 16:00 Temperature Temperature Source Pulse Rate 70 Pulse Rate [Apical] 66 Pulse Rate from SpO2 Sensor Pulse Rhythm Respiratory Rate 20 15 Respiratory Effort / Characteristics Non-Labored Spontaneous Respiratory Depth Normal Respiratory Pattern Regular Blood Pressure 104/52 L 98/49 L Blood Pressure [Right Arm] 104/52 L Blood Pressure Mean 68 58 Blood Pressure Mean [Right Arm] 69 Blood Pressure Position [Right Arm] Lying Pulse Oximetry 98 98 Oxygen Delivery Method Nasal Cannula Nasal Cannula Oxygen Flow Rate 2 2 Sepsis Recent Fever Within 48 Hours Sepsis New/Unexplained Change in Mental Status Sepsis Action Taken by Nursing 08/14/24 16:15 08/14/24 16:30 08/14/24 16:45 Temperature Temperature Source Pulse Rate 74 65 69 Pulse Rate [Apical] Pulse Rate from SpO2 Sensor Pulse Rhythm Respiratory Rate 15 15 15 Respiratory Effort / Characteristics Respiratory Depth Respiratory Pattern Blood Pressure 110/61 106/82 110/54 L Blood Pressure [Right Arm] Blood Pressure Mean 68 91 70 Blood Pressure Mean [Right Arm] Blood Pressure Position [Right Arm] Pulse Oximetry 98 96 Oxygen Delivery Method Oxygen Flow Rate Sepsis Recent Fever Within 48 Hours Sepsis New/Unexplained Change in Mental Status Sepsis Action Taken by Nursing 08/14/24 17:00 08/14/24 17:15 08/14/24 17:30 Temperature Temperature Source Pulse Rate 63 68 Pulse Rate [Apical] Pulse Rate from SpO2 Sensor Pulse Rhythm Respiratory Rate 16 15 Respiratory Effort / Characteristics Respiratory Depth Respiratory Pattern Blood Pressure 113/51 L 107/47 L 114/73 Blood Pressure [Right Arm] Blood Pressure Mean 56 75 87 Blood Pressure Mean [Right Arm] Blood Pressure Position [Right Arm] Pulse Oximetry 100 100 Oxygen Delivery Method Oxygen Flow Rate Sepsis Recent Fever Within 48 Hours Sepsis New/Unexplained Change in Mental Status Sepsis Action Taken by Longterm Medications Current Medication List: was personally reviewed by me Laboratory Data Attestation: I reviewed the patient's lab results. 08/14/24 14:02 08/14/24 14:02 Lab Results 08/14/24 08/14/24 08/14/24 Range/Units 14:02 15:54 17:10 WBC 14.37 H (4.8-10.8) K/ul RBC 4.70 (4.70-6.10) M/uL Hgb 13.5 L (14.0-18.0) g/dl Hct 40.3 L (42.0-52.0) % MCV 85.7 (80.0-100.0) fL MCH 28.7 (25.0-34.0) pg MCHC 33.5 (32.0-36.0) g/dL RDW Std Deviation 45.1 (36.4-46.3) fL RDW Coeff of Carolyn 14.6 H (11.5-14.5) % Plt Count 282 (130-400) K/uL MPV 9.9 (9.4-12.4) fL Immature Gran % (Auto) 0.4 % Neut % (Auto) 84.6 % Lymph % (Auto) 5.8 % [place] % (Auto) 6.6 % Eos % (Auto) 1.7 % Baso % (Auto) 0.9 % Neut # (Auto) 12.15 H (1.40-6.50) K/uL Lymph # (Auto) 0.84 L (1.20-3.40) K/uL [place] # (Auto) 0.95 H (0.11-0.59) K/uL Eos # (Auto) 0.24 (0.00-0.50) K/uL Baso # (Auto) 0.13 (0.00-0.20) K/uL Immature Gran # (Auto) 0.06 (0.01-0.20) K/uL VBG pH 7.36 (7.36-7.41) VBG pCO2 48 (38-50) mmHg VBG pO2 27 mmHg VBG HCO3 27 mmol/L VBG O2 Saturation < 60.0 % VBG Base Excess 1.0 mEq/L Sodium 139 (136-145) mmol/L Potassium 3.7 (3.5-5.1) mmol/L Chloride 103 (98-107) mmol/L Carbon Dioxide 27 (21-32) mmol/L Anion Gap 9 (3-11) BUN 41 H (6-23) mg/dl Creatinine 3.06 H (0.6-1.4) mg/dl Est Cr Clr Drug Dosing 20.5 ml/min eGFR 19.76 BUN/Creatinine Ratio 13.4 (10-20) Glucose 241 H (70-99(Fasting)) mg/dl Lactate 2.2 H* (0.4-2.0) mmol/L Calcium 9.3 (8.6-10.3) mg/dl Magnesium 1.6 L (1.7-2.4) mg/dl Total Bilirubin 0.6 (0.2-1.0) mg/dl AST 11 L (13-39) U/L ALT 5 L (7-52) U/L Alkaline Phosphatase 105 H (34-104) U/L Troponin I High Sens 21.7 H 22.7 H (0-20) pg/ml Total Protein 7.0 (6.0-8.3) gm/dl Albumin 3.5 (3.4-5.0) gm/dl Globulin 3.5 (2.5-4.0) gm/dl Albumin/Globulin Ratio 1.0 (0.9-2) Procalcitonin 0.29 (0-0.5) ng/ml TSH 0.170 L (0.300-4.500) uIu/ml Free T4 0.92 (0.61-1.60) ng/dl Administered Medications Magnesium Sulfate/Dextrose (Magnesium Sulfate / D5w) 1 gm in 100 mls @ 50 mls/hr IV Q2H WILD Stop: 08/14/24 21:44 Last Admin: 08/14/24 20:37 Dose: 50 mls/hr Documented By: Infusion: 08/14/24 20:20 Dose: Infused Documented By: Admin: 08/14/24 18:29 Dose: 50 mls/hr Documented By: JASEN Discontinued Medications Vancomycin HCl 2,250 mg/ (Sodium Chloride) 545 mls @ 200 mls/hr IV NOW ONE Stop: 08/14/24 18:24 Last Infusion: 08/14/24 19:06 Dose: Infused Documented By: Admin: 08/14/24 16:10 Dose: 200 mls/hr Documented By: JASEN Meropenem 500 mg/ Syringe 10 mls @ 2 mls/min IV NOW STA; Protocol Stop: 08/14/24 15:45 Last Admin: 08/14/24 16:05 Dose: 2 mls/min Documented By: JASEN Sodium Chloride (Nss) 500 mls @ 999 mls/hr IV .Q31M ONE Stop: 08/14/24 17:10 Last Infusion: 08/14/24 19:05 Dose: Infused Documented By: Admin: 08/14/24 17:11 Dose: 999 mls/hr Documented By: JASEN Imaging Data Radiologist's Impression: Chest X-Ray 08/14/24 15:05 XR chest 1V portable CLINICAL HISTORY: weakness COMPARISON STUDY: 08/22/2023 FINDINGS: There is been no significant interval change. The patient has chronic cardiomegaly and pulmonary vascular congestion. There is slight bronchial wall thickening. Interstitial lung markings are somewhat pronounced bilaterally. There is no focal airspace opacity or pleural effusion. There is no pneumothorax. IMPRESSION: Stable exam demonstrating chronic cardiomegaly and pulmonary vascular congestion. Mild pulmonary edema versus interstitial lung disease remaining neck considerations. ACT 112: Negative or not required by law. Electronically signed by: Argelia Price M.D. 08/14/2024 3:45 PM Discharge Plan Visit Data Chief Complaint: Hypotension Stated Complaint: WEAKNESS, HYPOTENSION ED Provider: Demarcus Hong Discharge Problem: OLIVER (acute kidney injury), Acute hypotension, Complicated urinary tract infection, Acute dehydration, Elevated troponin Patient Disposition: Admitted As Inpatient Discharge Instructions Interventions: ED Discharge Assessment Last Done: 08/14/24 19:59
[2024-08-14 14:11] LABS: HCO3 VBG 27 mmol/L; Oxygen Saturation VBG < 60.0 %; PCO2 VBG 48 mmHg (38-50); PO2 VBG 27 mmHg; pH VBG 7.36 (7.36-7.41)
[2024-08-14 15:23] LABS: Basophils # (auto) 0.13 K/uL (0.00-0.20); Basophils % (auto) 0.9 %; Eosinophils # (auto) 0.24 K/uL (0.00-0.50); Eosinophils % (auto) 1.7 %; Hematocrit (blood only) 40.3 % (42.0-52.0); Hemoglobin 13.5 g/dl (14.0-18.0); Immature Granulocytes # (auto) 0.06 K/uL (0.01-0.20); Immature Granulocytes % (auto) 0.4 %; Lymphocytes # (auto) 0.84 K/uL (1.20-3.40); Lymphocytes % (auto) 5.8 %; Mean Corpuscular Hemoglobin 28.7 pg (25.0-34.0); Mean Corpuscular Hgb Conc 33.5 g/dL (32.0-36.0); Mean Corpuscular Volume 85.7 fL (80.0-100.0); Mean Platelet Volume 9.9 fL (9.4-12.4); Monocytes # (auto) 0.95 K/uL (0.11-0.59); Monocytes % (auto) 6.6 %; Neutrophils # (auto) 12.15 K/uL (1.40-6.50); Neutrophils % (auto) 84.6 %; Platelet Count 282 K/uL (130-400); RDW Coefficient of Variation 14.6 % (11.5-14.5); RDW Standard Deviation 45.1 fL (36.4-46.3); White Blood Count 14.37 K/ul (4.8-10.8)
[2024-08-14 15:28] LABS: Albumin Level 3.5 gm/dl (3.4-5.0); BUN Creatinine Ratio 13.4 (10-20); Bilirubin,Total 0.6 mg/dl (0.2-1.0); Calcium 9.3 mg/dl (8.6-10.3); Creatinine Clr Calc Pharmacy 20.5 ml/min; Globulin 3.5 gm/dl (2.5-4.0); Magnesium 1.6 mg/dl (1.7-2.4); Potassium 3.7 mmol/L (3.5-5.1)
[2024-08-14 15:34] LABS: Troponin I High Sensitivity 21.7 pg/ml (0-20)
[2024-08-14] MEDS ORDERED: VANCOMYCIN CONSULT ACTIVE PRN (15:41)
[2024-08-14 15:44] LABS: Thyroid Stimulating Hormone 0.17 uIu/ml (0.300-4.500)
--- NOTE | 2024-08-14 15:47 | XRay Report ---
XR chest 1V portable CLINICAL HISTORY: weakness COMPARISON STUDY: 08/22/2023 FINDINGS: There is been no significant interval change. The patient has chronic cardiomegaly and pulm onary vascular congestion. There is slight bronchial wall thickening. Interstitial lung markings are somewhat pronounced bilaterally. There is no focal airspace opacity or pleural effusion. There is no pneumothorax. IMPRESSION: Stable exam demonstrating chronic cardiomegaly and pulmonary vascular congestion. Mild p ulmonary edema versus interstitial lung disease remaining neck considerations. ACT 112: Negative or not required by law. Electronically signed by: Argelia Price M.D. 08/14/2024 3:45 PM
[2024-08-14] MEDS: MEROPENEM 500 MG in SYRINGE 0 ML IV STA (16:05)
[2024-08-14] MEDS: VANCOMYCIN HCL 2,250 MG in SODIUM CHLORIDE 0.9% 500 ML IV ONE (16:10)
--- NOTE | 2024-08-14 16:13 | Electrocardiogram Report ---
Test Reason : Blood Pressure : */* mmHG Vent. Rate : 70 BPM Atrial Rate : * BPM P-R Int : * ms QRS Dur : 76 ms QT Int : 410 ms P-R-T Axes : * -20 -38 degrees QTcB Int : 442 ms Atrial fibrillation with a competing junctional pacemaker Possible Old Anterior infarct (cited on or before 22-Aug-2023) Abnormal ECG When compared with ECG of 22-Aug-2023 08:50, HR has decreased by 37 bpm Otherwise no significant change Confirmed by Evaristo Motley ([id number]) on 08/14/2024 4:12:59 PM Referred By: [facility] Confirmed By: Evaristo Motley
--- NOTE | 2024-08-14 16:20 | History & Physical Report ---
Date of Service August 14, 2024 Assessment & Plan (1) Severe sepsis: (2) Catheter-associated urinary tract infection: (3) OLIVER (acute kidney injury): (4) Elevated troponin: Plan This patient is an 79-year-old male with a history of dementia, HFpEF, HTN, A- fib, CAD s/p LAD stent, restrictive lung disease, HLD, severe COPD, tracheomalacia, DM 2 with neuropathy, CKD stage III, hypothyroidism, GERD, depression/anxiety, overactive bladder with chronic Lomeli catheter and recent ESBL Klebsiella and MRSA UTI (treated with Bactrim and IV ertapenem), who presents from [facility] with an episode of unresponsiveness, found ot have BP 60s systolic at [facility]. Ambulance called and he was given 1 L NS en route and BPs iproved to 80s-90s systolic in our ED. Pt with dementia and can't recall what happened and says he feels fine. He states "I'm in [place]" an dwife reports he is more confused than baseline dementia. Denies lightheadedness, headache, chest pain, SOB, abd pain, or urinary symptoms. and daughter at bedside report he did c/o some lower abdominal pain a few days ago, prompting an abdominal xray at [facility] which they were told was negative. In the ED, was found to have leukocytosis, hypotension,mildly elevated lactate, OLIVER, and abnormal UA. He was given IV meropenem and Vancomycin, gentle IVFs and had improvement in hypotension. He will be admitted for severe sepsis, CAUTI, and OLIVER. #Severe sepsis/CAUTI-with hypotension, elevated lactate, leukocytosis, and UTI. Chronic Lomeli exchanged / but unclear if UA sample sent before or after Lomeli exchange. BPs improved with NS IVFs. Sepsis resuscitation fluids not given due to CHF. -continue meropenem and IV Vanco started in ED -follow urine and blood cxs -follow CBC, CMP -continue tamsulosin, finasteride, Vibegron #OLIVER on CKD stage 3-expansion joint finisher elevated at 3.0 on admission from AT likely from hypotension/severe sepsis in setting of taking antihypertensives and lasix. Also recently received Bactrim which can elevate expansion joint finisher. Received total of 1.5L NS on admission, gentle IVFs given h/o CHF -hold home lasix, KCl -follow BMP -no further IVFs, can take po, BPs now improved #Hypomagnesemia-acute on chronic, Mag 1.6 on arrival -replace with IV mag x 2 grams -continue home po mag -follow Mag level in AM #HFpEF/HTN/CAD s/p LAD stent/Myocardial demand ischemia-dry on admission from sepsis, given 1.5L NS gently due to h/o CHF. Trop mild elevation , no ischemic changes on ECG, no chest pain. -continue Plavix, cut metoprolol in half due to hypotension -statin intolerant -hold home amlodipine and hydralazine due to hypotension #DMII w/ neuropathy-with hyperglycemia in 240s on arrival from acute illness, follows with Endocrine. 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, rates controlled -monitor on tele -continue metoprolol but decrease to 50mg daily given admitting hypotension, hold parameters -continue renally dosed Eliquis -keep lytes replete/optimal-check BMP, Mag in AM #COPD/restrictive lung disease/tracheomalacia/Chronic hypoxic respiratory failure-no acute issues, on 2LNC continuously -continue maintenance inhalers, supplemental O2, prn albuterol nebs #Hypothyroidism-TSH mildly low on last check and again here, follows with Endocrine -continue home dose LT4, no changes while acutely ill -f/u TSH as outpt #GERD-no acute issues -continue PPI daily #Alzheimer's dementia/Acute encephalopathy/Depression-with some mild delirium from severe sepsis in setting of moderate dementia, resides in [place] -treat sepsis -supportive care -continue home sertraline, melatonin #Glaucoma-continue home eye drops DVT Proph-Eliquis, SCDs Dispo-admit to PCU, PT/OT consults palced but is a azeb lift to wheelchair, permanent resident of [facility] History of Present Illness Chief Complaint: Unresponsive, hypotension Primary Care Provider: [facility] This patient is an 79-year-old male with a history of dementia, HFpEF, HTN, A- fib, CAD s/p LAD stent, restrictive lung disease, HLD, severe COPD, tracheomalacia, DM 2 with neuropathy, CKD stage III, hypothyroidism, GERD, d epression/anxiety, overactive bladder with chronic Lomeli catheter and recent ESBL Klebsiella and MRSA UTI (treated with Bactrim and IV ertapenem), who presents from [facility] with an episode of unresponsiveness, found ot have BP 60s systolic at [facility]. Ambulance called and he was given 1 L NS en route and BPs iproved to 80s-90s systolic in our ED. Pt with dementia and can't recall what happened and says he feels fine. He states "I'm in [place]" an dwife reports he is more confused than baseline dementia. Denies lightheadedness, headache, chest pain, SOB, abd pain, or urinary symptoms. and daughter at bedside report he did c/o some lower abdominal pain a few days ago, prompting an abdominal xray at [facility] which they were told was negative. In the ED, was found to have leukocytosis, hypotension,mildly elevated lactate, OLIVER, and abnormal UA. He was given IV meropenem and Vancomycin, gentle IVFs and had improvement in hypotension. He will be admitted for severe sepsis, CAUTI, and OLIVER. Allergies Allergy/AdvReac Type Severity Reaction Status Date / Time Penicillins Allergy Severe FACIAL Verified 08/01/24 13:20 SWELLING AND RASH amoxicillin Allergy Intermediate RASH Verified 08/01/24 13:20 clavulanic acid Allergy Intermediate RASH Verified 08/01/24 13:20 azithromycin Allergy Unknown PER NEPHRO Verified 08/01/24 13:20 NOTE cholestyramine Allergy Unknown per nephro Verified 08/01/24 13:20 note niacin Allergy Unknown per nephro Verified 08/01/24 13:20 note phenylephrine Allergy Unknown per nephro Verified 08/01/24 13:20 note Lfcdbhh-PEI-EpA Reductase AdvReac Intermediate JOINT Verified 08/01/24 13:20 Inhibitor STIFFNESS [Jayyywh-Nyi-Gmk Reductase AND PAIN Inhibitor] Home Medications Medication Instructions Recorded Confirmed Type glucosamine sulfate 500 mg tablet 2 tabs PO QAM 03/13/18 08/14/24 History (Glucosamine) latanoprost 0.005 % eye drops 1 drp OPB HS 03/13/18 08/14/24 History (Xalatan) nitroglycerin 0.4 mg sublingual 0.4 mg sublingual UD PRN Chest 03/12/19 08/14/24 Rx tablet (Nitrostat) Pain #1 btl OneTouch UltraSoft Lancets #400 ea 05/23/19 08/14/24 Rx (lancets) insulin syringe-needle U-100 0.5 #300 ea 08/13/19 08/14/24 Rx mL 31 gauge x 5/16" (BD Insulin Syringe Ultra-Fine) nebulizers (Aeroneb Go Nebulizer) #1 ea 10/04/20 08/14/24 Rx metoprolol succinate 100 mg 100 mg PO QAM #90 tabs 01/02/22 08/14/24 Rx tablet,extended release 24 hr BD Ultra-Fine Short Pen Needle 31 #100 ea 01/17/22 08/14/24 Rx gauge x 5/16" (pen needle, diabetic) blood sugar diagnostic (OneTouch #400 ea 01/23/22 08/14/24 Rx Ultra Test strips) levothyroxine 100 mcg tablet 100 mcg PO DAILYBB 08/08/22 08/14/24 History loratadine 10 mg tablet (Allergy 10 mg PO QAM 03/29/23 08/14/24 History Relief (loratadine)) acetaminophen 500 mg tablet 1,000 mg PO BIDM 07/27/23 08/14/24 History (Tylenol Extra Strength) hydralazine 100 mg tablet 100 mg PO TID 07/27/23 08/14/24 History hydralazine 50 mg tablet 50 mg PO TID 07/27/23 08/14/24 History acetaminophen 325 mg tablet 650 mg PO Q6H PRN PAIN/FEVER >100 08/22/23 08/14/24 History (Tylenol) magnesium oxide 500 mg PO QAM 08/22/23 08/14/24 History pantoprazole 40 mg tablet,delayed 40 mg PO DAILYBB 08/22/23 08/14/24 History release polyethylene glycol 3350 17 gram 17 g PO BIDM 08/22/23 08/14/24 History oral powder packet (Miralax) potassium chloride 20 mEq 20 meq PO QAM 08/22/23 08/14/24 History tablet,extended release thiamine HCl (vitamin B1) 100 mg 200 mg PO BIDM 08/22/23 08/14/24 History tablet melatonin 5 mg tablet 5 mg PO HS 01/22/24 08/14/24 History insulin aspart (niacinamide) 25 unit subcut DAILY 08/01/24 08/14/24 History (U-100) 100 unit/mL subcutaneous solution (Fiasp U-100 Insulin) insulin glargine 100 unit/mL 40 unit subcut HS 08/01/24 08/14/24 History subcutaneous solution (Lantus U-100 Insulin) amlodipine 2.5 mg tablet 2.5 mg PO HS 08/14/24 08/14/24 History apixaban 2.5 mg tablet (Eliquis) 2.5 mg PO BID 08/14/24 08/14/24 History cholecalciferol (vitamin D3) 125 125 mcg PO QAM 08/14/24 08/14/24 History mcg (5,000 unit) tablet (Vitamin D3) clopidogrel 75 mg tablet 75 mg PO Q OTHER DAY 08/14/24 08/14/24 History dorzolamide 2 % eye drops 1 drp OPB AMHS 08/14/24 08/14/24 History finasteride 5 mg tablet 5 mg PO QAM 08/14/24 08/14/24 History fluticasone fur. 100 mcg-umeclid 1 inh inhalation QA 08/14/24 08/14/24 History 62.5 mcg-vilant 25 mcg inhalat.powder (Trelegy Ellipta) fluticasone propionate 50 2 spray intranasal DAILY 08/14/24 08/14/24 History mcg/actuation nasal spray,suspension furosemide 80 mg tablet 80 mg PO QA 08/14/24 08/14/24 History sertraline 25 mg tablet 25 mg PO HS 08/14/24 08/14/24 History sertraline 50 mg tablet 50 mg PO HS 08/14/24 08/14/24 History tamsulosin 0.4 mg capsule 0.4 mg PO QAM 08/14/24 08/14/24 History vibegron 75 mg tablet (Gemtesa) 75 mg PO QAM 08/14/24 08/14/24 History Past Med/Surg History Problem List (Updated 08/14/24 @ 23:24 by Ryann Min MD) Catheter-associated urinary tract infection Severe sepsis Elevated troponin (Acute) Acute dehydration (Acute) Complicated urinary tract infection (Acute) Acute hypotension (Acute) OLIVER (acute kidney injury) (Acute) Sacral back pain Atrial fibrillation metoprolol/apixaban Dementia (Acute) Hypoglycemia Chronic heart failure with preserved ejection fraction (HFpEF) Vitamin D deficiency Mycotic toenails Malignant neoplasm of bladder Hyperlipidemia Hearing loss Glaucoma Dysphagia causing pulmonary aspiration with swallowing Diabetic peripheral neuropathy (Chronic) Diabetic nephropathy Diabetes mellitus, type II, 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 Joseph Depressed Chronic respiratory failure with hypoxia Hypersomnia COPD with emphysema Statin myopathy Urinary frequency Acquired cognitive dysfunction Leaking of urine Muscular deconditioning (Chronic) Gait instability (Chronic) Abnormal ankle brachial index (YAJAIRA) (Acute) Medical History Syncope Seizure-like activity Episode of syncope UTI (urinary tract infection) Pneumonia Dilatation of colon Acute metabolic encephalopathy Multiple fractures of ribs, right side, initial encounter for closed fracture Compression fracture of L1 lumbar vertebra Back pain PAD (peripheral artery disease) Traumatic open wound of lower leg History of restrictive lung disease Chronic systolic CHF (congestive heart failure) Chronic renal failure (CRF), stage 3b OLIVER (acute kidney injury) Diabetes mellitus type 2, uncontrolled Rhabdomyolysis Pneumonia due to COVID-19 virus COVID Acute respiratory failure with hypoxia Diabetic ulcer of right foot Traumatic open wound of right lower leg Diabetic ulcer of toe of left foot associated with type 2 diabetes mellitus, limited to breakdown of skin BPH with obstruction/lower urinary tract symptoms Diabetic ulcer of toe of left foot Chronic diastolic congestive heart failure, NYHA class 2 Bladder cancer COPD exacerbation Dysphagia WALL (dyspnea on exertion) On home O2 2 LPM PRN COPD (chronic obstructive pulmonary disease) CAD (coronary artery disease) follows with Dr. Motley BPH (benign prostatic hyperplasia) Permanent atrial fibrillation Depression (Unknown) CAD (coronary artery disease) Tracheomalacia Resting tremor Exertional shortness of breath Morbid obesity Restrictive lung disease WALL (dyspnea on exertion) Bronchospasm Acute diastolic CHF (congestive heart failure) Diabetes mellitus with neurological manifestations, uncontrolled Diabetic retinopathy, nonproliferative, mild Hypertension Odynophagia Degenerative disc disease History of colon polyps GERD (gastroesophageal reflux disease) Cancer of skin of left ear removed Cancer of skin of back removed Bladder cancer 2014--sx Hearing deficit Alzheimer disease on donepezil Surgical History History of skin surgery removal of basal cell carcinoma from L side of face, 08/24/[address] Velazquez History of colonoscopy History of bladder surgery 2015 bladder tumor removal @ [facility] History of tonsillectomy and adenoidectomy History of bilateral cataract extraction History of cardiac cath x3--2012, 2014, 2017 @ [facility] H/O heart artery stent (2015) 2012 x 1 2015 x 3 2017 x 1 ( showed severe 99 % mid RCA in stent restenoses which was treated with drug-eluting stent) Family History Mother Family history of diabetes mellitus COPD (chronic obstructive pulmonary disease) Lung cancer Father Family history of diabetes mellitus Acute appendicitis Brother Hx of CABG Myocardial infarction Sister Heart disease Myocardial infarction Other Coronary heart disease Denies family history of Ovarian cancer Prostate cancer Kidney disease Breast cancer Colorectal cancer Social History Smoking Status: Unknown if ever smoked Tobacco Type: Cigarettes Age Started Using Tobacco: 14; Age Quit Using Tobacco: 29; packs per day: 1; Second Hand Exposure: No; Do You Dip or Chew Tobacco: No (used to chew tobacco, no longer does ); Hx Alcohol Use: No Hx Substance Use: No Preferred Language: Nicaraguan Communication Ability: Effective Communication Ability Comment: Pt slow to respond Visual Impairment: Limited Hearing Ability: Hard of Hearing Manager Cash Required: No Beliefs That Will Affect Care: None marital status: Current Living Situation: Correction current occupational status: retired 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 Other Information That Helps Us Care for You: No Feels Safe at Home: Yes Safety Concerns: Feels Safe At This Time Childhood Exposure to Second-Hand Smoke: Yes Diet: diabetic and ideal protein caffeine: Yes Dental Care, Regularly: No Physical Activity Frequency: Does not Exercise Seatbelt Use: always Sunscreen Use: No Assistive Devices: Mechanical Lift and Oxygen - Continuous Review of Systems Review of Systems: All systems reviewed & are unremarkable except as noted in HPI & below and Unobtainable due to cognitive status Physical Exam Constitutional: WD/WN, vitals as above Eyes: PERRL, conjunctivae normal, anicteric sclerae ENMT: external ear and nose normal, oropharynx normal Neck: trachea midline, no thyromegaly Respiratory: normal respiratory effort, lungs clear to auscultation Cardiovascular: RRR, no murmur, no edema Chest (Breasts): Chest: normal inspection of chest Gastrointestinal (Abdomen): normal bowel sounds, soft, nontender, no he patosplenomegaly Musculoskeletal: Extremities: extremities normal to inspection; no cyanosis and no clubbing Skin: no rashes, warm and dry Neurologic: moves all extremities and awake; no focal motor deficits Genitourinary: + penis abnormality (Lomeli in place drai curt cloudy urine with brown sediment) Lymphatic: no lymphedema Results & Data Results & Data Vital Signs (Past 12 Hours) Vital Signs Temp Pulse Pulse Resp BP BP Pulse Ox 08/14/24 15:54 66 20 104/52 L 98 08/14/24 15:15 76 20 96 08/14/24 14:46 111/44 L 08/14/24 14:46 111/44 L 08/14/24 14:36 69 15 100 08/14/24 14:30 84/73 L 08/14/24 14:30 84/73 L 08/14/24 14:30 84/73 L 08/14/24 14:30 84/73 L 08/14/24 14:30 84/73 L 08/14/24 14:30 84/73 L 08/14/24 14:30 66 14 100 08/14/24 14:21 68 17 99 08/14/24 14:15 108/60 08/14/24 14:15 108/60 08/14/24 14:15 108/60 08/14/24 14:15 108/60 08/14/24 14:12 66 17 100 08/14/24 14:03 72 16 100 08/14/24 14:01 97 08/14/24 14:01 36.7 C 73 15 90/57 L 97 08/14/24 14:00 114/70 08/14/24 14:00 114/70 08/14/24 14:00 114/70 08/14/24 13:47 67 08/14/24 13:45 127/60 08/14/24 13:45 127/60 08/14/24 13:45 127/60 O2 Del Method O2 Flow Rate 08/14/24 15:54 Nasal Cannula 2 08/14/24 15:15 Nasal Cannula 08/14/24 14:46 08/14/24 14:46 08/14/24 14:36 08/14/24 14:30 08/14/24 14:30 08/14/24 14:30 08/14/24 14:30 08/14/24 14:30 08/14/24 14:30 08/14/24 14:30 08/14/24 14:21 08/14/24 14:15 08/14/24 14:15 08/14/24 14:15 08/14/24 14:15 08/14/24 14:12 08/14/24 14:03 08/14/24 14:01 Nasal Cannula 2 08/14/24 14:01 Nasal Cannula 2 08/14/24 14:00 08/14/24 14:00 08/14/24 14:00 08/14/24 13:47 08/14/24 13:45 08/14/24 13:45 08/14/24 13:45 Laboratory Results CBC, CMP, procalcitonin, troponin, magnesium, UA reviewed Diagnostic Findings CXR reviewed ECG Additional Comments: ECG on 08/14/24 at 1345 with Afib, rate 70, no ischemic changes Code Status & VTE Plan Code Status DNR. DNI VTE Prophylaxis Plan VTE Prophylaxis will be ordered: Yes PG Care Time/CCT Total # of Minutes Spent Total Time Spent with Patient: Total time spent is greater than 50% in coordination of care (as documented) at patient's floor/unit and/or counseling patient: Coding Level of Care Code 72833 INT INP/OBS CARE MIN Diagnoses Severe sepsis A41.9; R65.20 Catheter-associated urinary tract infection T83.511A; N39.0 OLIVER (acute kidney injury) N17.9 Elevated troponin R79.89
[2024-08-14 16:57] LABS: T4 Free Thyroxine 0.92 ng/dl (0.61-1.60)
[2024-08-14] MEDS: SODIUM CHLORIDE 0.9% 500 ML IV ONE (17:11)
[2024-08-14] MEDS: MAGNESIUM SULFATE / D5W 1 GM/100 ML BAG IV SCH (18:29)
[2024-08-14] MEDS ORDERED: GLUCOSE 10 TAB/TUBE PO PRN (20:30)
[2024-08-14] MEDS ORDERED: GLUCAGON FOR INJ 1 MG VIAL SQ PRN (20:30)
[2024-08-14] MEDS ORDERED: GLUCOSE 40% GEL 15 GM TUBE PO PRN (20:30)
[2024-08-14] MEDS ORDERED: ALBUT/IPRATROP 3MG/0.5MG NEB 3 ML VIAL INH PRN (20:30)
[2024-08-14] MEDS ORDERED: DEXTROSE 50% 50 ML SYRINGE IV PRN (20:30)
[2024-08-14] MEDS ORDERED: ONDANSETRON INJ 2 MG/ML 2 ML VIAL IV PRN (20:30)
--- NOTE | 2024-08-14 21:11 | Pharmacy Report ---
Pharmacy PK ABX Note - Date of Service August 14, 2024 - Assessment and Plan Assessment 79 year old M receiving Vancomycin and Meropenem for treatment of empiric sepsis and UTI, respectively. * Day #1 of antimicrobial therapy. Recent urine culture from July 2024 with MRSA and ESBL. * Afebrile. Lactate 2.2, down to 1.1 with fluids. Procal of 0.29. * Blood cultures pending. UA ordered but not yet collected. * OLIVER on CKD. SCr 3.06 mg/dL, CrCl 20.5 mL/min. Baseline SCr somewhere near 2 mg/dL. * Given OLIVER, will forego any further vancomycin dosing outside of 26 mg/kg loading dose given and order a random vancomycin level tomorrow with AM labs. Plan Vancomycin * Loading dose: 2250 mg IV x 1 * Holding off on any maintenance doses given OLIVER and large loading dose (~26 mg/kg). Will dose per level until SCr stabilizes. * Random level ordered for: 08/15/24 with AM labs Meropenem * 500 mg IV every 12 hours Pharmacy will continue to follow and will adjust dose/frequency as necessary. Thank you. Pharmacy has transitioned to AUC monitoring for vancomycin. AUC/SULY is the preferred PK/PD target and is associated with decreased risk of nephrotoxicity compared to traditional trough targets.
[2024-08-14] MEDS: DORZOLAMIDE HCL 2% OPH SOLN 10 ML BTL OPB SCH (21:20)
[2024-08-14] MEDS: SERTRALINE HCL 50 MG TABLET PO SCH (21:21)
[2024-08-14] MEDS: APIXABAN 2.5 MG TAB PO SCH (21:21)
[2024-08-14] MEDS: CLOPIDOGREL BISULFATE 75 MG TAB PO SCH (21:21)
[2024-08-14] MEDS: LANTUS PER UNIT CHARGE SQ SCH (21:22)
[2024-08-14] MEDS: LATANOPROST 0.005% OP SOLN 2.5 ML BTL OPB SCH (21:22)
[2024-08-14] MEDS: INSULIN ASPART PER UNIT CHARGE SC SCH (21:22)
[2024-08-14 22:01] LABS: Appearance Urine Turbid (Clear); Bacteria Urine Automated 1+ (None Seen); Bilirubin Urine Negative (Negative); Blood Urine 3+ (Negative); Cast Urine Automated >20 /lpf (0-2); Color Urine Orange; Glucose Urine UA Negative (Negative); Ketones Urine Negative (Negative); Leukocyte Esterase Urine 3+ (Negative); Nitrite Urine Negative (Negative); Protein Urine 2+ (Negative); RBC Urine Automated >20 /hpf (0-2); Specific Gravity Urine 1.015 (1.000-1.030); Urobilinogen Urine Negative (Negative); WBC Urine Automated >50 /hpf (0-5)
[2024-08-15] MEDS: MEROPENEM 500 MG in SYRINGE 0 ML IV SCH (04:22)
[2024-08-15 06:12] LABS: Basophils % (auto) 1.3 %; Eosinophils # (auto) 0.61 K/uL (0.00-0.50); Eosinophils % (auto) 7.9 %; Hematocrit (blood only) 34.6 % (42.0-52.0); Hemoglobin 11.5 g/dl (14.0-18.0); Immature Granulocytes # (auto) 0.02 K/uL (0.01-0.20); Immature Granulocytes % (auto) 0.3 %; Lymphocytes # (auto) 1.06 K/uL (1.20-3.40); Lymphocytes % (auto) 13.7 %; Mean Corpuscular Hemoglobin 28.5 pg (25.0-34.0); Mean Corpuscular Hgb Conc 33.2 g/dL (32.0-36.0); Mean Corpuscular Volume 85.6 fL (80.0-100.0); Mean Platelet Volume 9.6 fL (9.4-12.4); Monocytes # (auto) 0.65 K/uL (0.11-0.59); Monocytes % (auto) 8.4 %; Neutrophils # (auto) 5.31 K/uL (1.40-6.50); Neutrophils % (auto) 68.4 %; Platelet Count 225 K/uL (130-400); RDW Coefficient of Variation 14.5 % (11.5-14.5); RDW Standard Deviation 44.5 fL (36.4-46.3); Red Blood Count 4.04 M/uL (4.70-6.10); White Blood Count 7.75 K/ul (4.8-10.8)
[2024-08-15] MEDS: LEVOTHYROXINE SODIUM 100 MCG TABLET PO SCH (06:23)
[2024-08-15] MEDS: PANTOprazole 40 MG TAB PO SCH (06:24)
[2024-08-15 06:28] LABS: BUN Creatinine Ratio 14.4 (10-20); Calcium 8.8 mg/dl (8.6-10.3); Potassium 3.7 mmol/L (3.5-5.1)
[2024-08-15 07:04] LABS: Estimated Average Glucose 189 mg/dl; Hemoglobin A1C 8.2 % (4.5-5.6)
[2024-08-15] MEDS: VANCOMYCIN HCL 1,250 MG in SODIUM CHLORIDE 0.9% 250 ML IV SCH (08:37)
[2024-08-15] MEDS: THIAMINE HCL 100 MG TAB PO SCH (08:42)
[2024-08-15] MEDS: FINASTERIDE 5 MG TAB PO SCH (08:42)
[2024-08-15] MEDS: VIBEGRON 75 MG TAB PO SCH (08:42)
[2024-08-15] MEDS: TAMSULOSIN HCL 0.4 MG CAP PO SCH (08:42)
[2024-08-15] MEDS: FLUTICASONE FUROATE 100MCG 14 PUFFS/INHALER INH SCH (08:43)
[2024-08-15] MEDS: FLUTICASONE PROPIONATE NA SPR 16 GM BTL NAE SCH (08:43)
[2024-08-15] MEDS: CLOTRIMAZOLE 1% CR 15 GM TUBE EXT SCH (08:43)
[2024-08-15] MEDS: METOPROLOL SUCC 50MG EXT REL TAB PO SCH (08:44)
[2024-08-15] MEDS: LORATADINE 10 MG TAB PO SCH (08:44)
[2024-08-15] MEDS: UMECLIDINIUM/VILANTEROL 62.5/25MCG 7 PUFFS/INHALER INH SCH (08:44)
[2024-08-15] MEDS: CHOLECALCIFEROL 125 MCG (5,000 UNITS) TAB PO SCH (08:44)
[2024-08-15] MEDS: MAGNESIUM OXIDE 400 MG TAB PO SCH (08:44)
[2024-08-15] MEDS ORDERED: SERTRALINE HCL 50 MG TABLET PO SCH (09:00)
[2024-08-15] MEDS ORDERED: PNEUMOCOCCAL VACCINE (PCV20) 20-VAL CONJ-DIP CRM/PF 0.5 ML SYR IM ONE (09:00)
[2024-08-15] MEDS ORDERED: NON-FORMULARY MEDICATION (Fluticasone-Umeclidin-Vilanter [Trelegy Ellipta] 100-62.5-25 mcg INH SCH (09:00)
[2024-08-15] MEDS: ACETAMINOPHEN 500 MG TAB PO SCH (09:30)
--- NOTE | 2024-08-15 10:22 | Pharmacy Report ---
Pharmacy PK ABX Note - Date of Service August 15, 2024 - Assessment and Plan Assessment 08/15: * Day #2 of Vancomycin therapy. * Vancomycin level obtained today AM at 05:42 = 17 mcg/ml * Scr = 2.85 mg/dl slightly improved from yesterday. * Urine and blood cultures pending. 08/14: 79 year old M receiving Vancomycin and Meropenem for treatment of empiric sepsis and UTI, respectively. * Day #1 of antimicrobial therapy. Recent urine culture from July 2024 with MRSA and ESBL. * Afebrile. Lactate 2.2, down to 1.1 with fluids. Procal of 0.29. * Blood cultures pending. UA ordered but not yet collected. * OLIVER on CKD. SCr 3.06 mg/dL, CrCl 20.5 mL/min. Baseline SCr somewhere near 2 mg/dL. * Given OLIVER, will forego any further vancomycin dosing outside of 26 mg/kg loading dose given and order a random vancomycin level tomorrow with AM labs. Plan Vancomycin * Since Vancomycin level of 17 mcg/ml at goal trough range of 15-20 mcg/ml, re- dosed this AM with Vancomycin 1250 mg (~15 mg/kg) IV x1. * Continue to hold off on scheduled maintenance dosing due to elevated Scr from OLIVER. Dose per level until SCr stabilizes. * Random level ordered for: 08/16/24 with AM labs Meropenem * 500 mg IV every 12 hours- adjusted for Crcl. Pharmacy will continue to follow and will adjust dose/frequency as necessary. Thank you. Pharmacy has transitioned to AUC monitoring for vancomycin. AUC/SULY is the preferred PK/PD target and is associated with decreased risk of nephrotoxicity compared to traditional trough targets.
[2024-08-15] MEDS: POLYETHYLENE (MIRALAX) 17 GM PACK PO SCH (16:26)
--- NOTE | 2024-08-15 22:37 | Hospitalist Progress Note ---
Date of Service August 15, 2024 Assessment & Plan (1) Severe sepsis: (2) Catheter-associated urinary tract infection: (3) OLIVER (acute kidney injury): (4) Elevated troponin: Plan This patient is an 79-year-old male with a history of dementia, HFpEF, HTN, A- fib, CAD s/p LAD stent, restrictive lung disease, HLD, severe COPD, tracheomalacia, DM 2 with neuropathy, CKD stage III, hypothyroidism, GERD, depression/anxiety, overactive bladder with chronic Lomeli catheter and recent ESBL Klebsiella and MRSA UTI (treated with Bactrim and IV ertapenem), who presents from [facility] with an episode of unresponsiveness, found ot have BP 60s systolic at [facility]. Ambulance called and he was given 1 L NS en route and BPs iproved to 80s-90s systolic in our ED. Pt with dementia and can't recall what happened and says he feels fine. He states "I'm [place]" an dwife reports he is more confused than baseline dementia. Denies lightheadedness, headache, chest pain, SOB, abd pain, or urinary symptoms. and daughter at bedside report he did c/o some lower abdominal pain a few days ago, prompting an abdominal xray at [facility] which they were told was negative. In the ED, was found to have leukocytosis, hypotension,mildly elevated lactate, OLIVER, and abnormal UA. He was given IV meropenem and Vancomycin, gentle IVFs and had improvement in hypotension. He will be admitted for severe sepsis, CAUTI, and OLIVER. #Severe sepsis/CAUTI-with hypotension, elevated lactate, leukocytosis, and UTI. Chronic Lomeli exchanged / but unclear if UA sample sent before or after Lomeli exchange. BPs improved with NS IVFs. -Bood pressure is stable. -WBC is improving, awaiting culture to nifalize. 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 Also recently received Bactrim which can elevate credit union field examiner. Received total of 1.5L NS on admission, gentle IVFs given h/o CHF -hold home lasix, KCl -follow BMP -no further IVFs, can take po, BPs now improved -OLIVER is improving. #Hypomagnesemia-acute on chronic, Mag 1.6 on arrival -replace with IV mag x 2 grams -continue home po mag -follow Mag level in AM #HFpEF/HTN/CAD s/p LAD stent/Myocardial demand ischemia-dry on admission from sepsis, given 1.5L NS gently due to h/o CHF. Trop mild elevation , no ischemic changes on ECG, no chest pain. -continue Plavix, cut metoprolol in half due to hypotension -statin intolerant -hold home amlodipine and hydralazine due to hypotension #DMII w/ neuropathy-with hyperglycemia in 240s on arrival from acute illness, follows with Endocrine. 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, rates controlled -monitor on tele -continue metoprolol but decrease to 50mg daily given admitting hypotension, hold parameters -continue renally dosed Eliquis -keep lytes replete/optimal-check BMP, Mag in AM #COPD/restrictive lung disease/tracheomalacia/Chronic hypoxic respiratory failure-no acute issues, on 2LNC continuously -continue maintenance inhalers, supplemental O2, prn albuterol nebs #Hypothyroidism-TSH mildly low on last check and again here, follows with Endocrine -continue home dose LT4, no changes while acutely ill -f/u TSH as outpt #GERD-no acute issues -continue PPI daily #Alzheimer's dementia/Acute encephalopathy/Depression-with some mild delirium fr om severe sepsis in setting of moderate dementia, resides in [place] -treat sepsis -supportive care -continue home sertraline, melatonin #Glaucoma-continue home eye drops Family requesting to upgrade diet. DVT Proph-Eliquis, SCDs Dispo-admit to PCU, PT/OT consults palced but is a azeb lift to wheelchair, permanent resident of [place] [facility] Admission and Anticipated Discharge Date Admission Date: August 14, 2024 Subjective 79 yo male reports no new symptoms. Review of Systems Review of Systems: All systems reviewed & are unremarkable except as noted in HPI & below Physical Exam Constitutional: WD/WN, vitals as above Eyes: PERRL, conjunctivae normal, anicteric sclerae ENMT: external ear and nose normal, oropharynx normal Neck: trachea midline, no thyromegaly Respiratory: normal respiratory effort, lungs clear to auscultation Cardiovascular: RRR, no murmur, no edema Chest (Breasts): Chest: normal inspection of chest Gastrointestinal (Abdomen): normal bowel sounds, soft, nontender, no hepatosplenomegaly Musculoskeletal: Extremities: extremities normal to inspection; no cyanosis and no clubbing Skin: no rashes, warm and dry Neurologic: moves all extremities and awake; no focal motor deficits Lymphatic: no lymphedema Results & Data Results & Data Vital Signs (Past 12 Hours) Vital Signs Temp Pulse Pulse Resp BP Pulse Ox O2 Del Method 08/15/24 20:05 36.5 C 68 18 176/73 H 97 Nasal Cannula 08/15/24 16:19 36.6 C 67 18 142/70 H 97 Nasal Cannula 08/15/24 13:54 66 08/15/24 11:01 36.2 C L 66 18 108/63 95 Nasal Cannula O2 Flow Rate 08/15/24 20:05 1 08/15/24 16:19 08/15/24 13:54 08/15/24 11:01 1 PG Care Time/CCT Total # of Minutes Spent Total Time Spent with Patient: Total time spent is greater than 50% in coordination of care (as documented) at patient's floor/unit and/or counseling patient: Coding Level of Care Code 10777 SUB INP/OBS CARE 3/50MIN Diagnoses Severe sepsis A41.9; R65.20 Catheter-associated urinary tract infection T83.511A; N39.0 OLIVER (acute kidney injury) N17.9 Elevated troponin R79.89
[2024-08-16 05:34] LABS: Hematocrit (blood only) 35.1 % (42.0-52.0); Hemoglobin 11.6 g/dl (14.0-18.0); Mean Corpuscular Hemoglobin 28.2 pg (25.0-34.0); Mean Corpuscular Volume 85.4 fL (80.0-100.0); Mean Platelet Volume 9.4 fL (9.4-12.4); Platelet Count 202 K/uL (130-400); RDW Coefficient of Variation 14.5 % (11.5-14.5); RDW Standard Deviation 44.7 fL (36.4-46.3); Red Blood Count 4.11 M/uL (4.70-6.10); White Blood Count 7.74 K/ul (4.8-10.8)
[2024-08-16 05:49] LABS: BUN Creatinine Ratio 17.9 (10-20); Calcium 8.8 mg/dl (8.6-10.3); Creatinine Clr Calc Pharmacy 28.8 ml/min; Potassium 3.4 mmol/L (3.5-5.1)
[2024-08-16] MEDS: ACETAMINOPHEN 325 MG TAB PO PRN (09:40)
--- NOTE | 2024-08-16 10:15 | Pharmacy Report ---
Pharmacy PK ABX Note - Date of Service August 16, 2024 - Assessment and Plan Assessment 08/16: * Day #3 of vancomycin and meropenem. * Vanc level therapeutic this AM but upper end of goal range. Dosing per level but SCr starting to stabilize, 2.18 mg/dL this AM. * No growth in any cultures as of yet. 08/15: * Day #2 of Vancomycin therapy. * Vancomycin level obtained today AM at 05:42 = 17 mcg/ml * Scr = 2.85 mg/dl slightly improved from yesterday. * Urine and blood cultures pending. 08/14: 79 year old M receiving Vancomycin and Meropenem for treatment of empiric sepsis and UTI, respectively. * Day #1 of antimicrobial therapy. Recent urine culture from July 2024 with MRSA and ESBL. * Afebrile. Lactate 2.2, down to 1.1 with fluids. Procal of 0.29. * Blood cultures pending. UA ordered but not yet collected. * OLIVER on CKD. SCr 3.06 mg/dL, CrCl 20.5 mL/min. Baseline SCr somewhere near 2 mg/dL. * Given OLIVER, will forego any further vancomycin dosing outside of 26 mg/kg loading dose given and order a random vancomycin level tomorrow with AM labs. Plan Vancomycin * Random level obtained this AM resulted as 19.1 mcg/mL. Patient had been receiving doses per level, last dose was 1250 mg yesterday at 0837. * Change to 750 mg IV every 24 hours. This is predicted to achieve target AUC/SULY of 400-600 mg/L.hr. Predicted AUC at steady state: 467 mg/L.hr * Repeat random level ordered for: 08/17/24 Meropenem * 500 mg IV every 8 hours - adjusted for Crcl. Pharmacy will continue to follow and will adjust dose/frequency as necessary. Thank you. Pharmacy has transitioned to AUC monitoring for vancomycin. AUC/SULY is the preferred PK/PD target and is associated with decreased risk of nephrotoxicity compared to traditional trough targets.
[2024-08-16] MEDS: POTASSIUM CHLORIDE CRTAB 20 MEQ TABCR PO STA (11:11)
[2024-08-16] MEDS: MEROPENEM 500 MG in SYRINGE 0 ML IV SCH (11:20)
[2024-08-16] MEDS: VANCOMYCIN 750 MG in SODIUM CHLORIDE 0.9% 250 ML IV STA (12:02)
--- NOTE | 2024-08-16 23:05 | Hospitalist Progress Note ---
Date of Service August 16, 2024 Assessment & Plan (1) Severe sepsis: (2) Catheter-associated urinary tract infection: (3) OLIVER (acute kidney injury): (4) Elevated troponin: Plan This patient is an 79-year-old male with a history of dementia, HFpEF, HTN, A- fib, CAD s/p LAD stent, restrictive lung disease, HLD, severe COPD, tracheomalacia, DM 2 with neuropathy, CKD stage III, hypothyroidism, GERD, depression/anxiety, overactive bladder with chronic Lomeli catheter and recent ESBL Klebsiella and MRSA UTI (treated with Bactrim and IV ertapenem), who presents from [facility] with an episode of unresponsiveness, found ot have BP 60s systolic at [facility]. Ambulance called and he was given 1 L NS en route and BPs iproved to 80s-90s systolic in our ED. Pt with dementia and can't recall what happened and says he feels fine. He states "I'm in [place]" an dwife reports he is more confused than baseline dementia. Denies lightheadedness, headache, chest pain, SOB, abd pain, or urinary symptoms. and daughter at bedside report he did c/o some lower abdominal pain a few days ago, prompting an abdominal xray at [facility] which they were told was negative. In the ED, was found to have leukocytosis, hypotension,mildly elevated lactate, OLIVER, and abnormal UA. He was given IV meropenem and Vancomycin, gentle IVFs and had improvement in hypotension. He will be admitted for severe sepsis, CAUTI, and OLIVER. #Severe sepsis/CAUTI-with hypotension, elevated lactate, leukocytosis, and UTI. Chronic Lomeli exchanged / but unclear if UA sample sent before or after Lomeli exchange. BPs improved with NS IVFs. -Bood pressure is stable. -WBC is improving, awaiting culture to nifalize. -continue meropenem and IV Vanco started in ED -awaiting final cultures -continue tamsulosin, finasteride, Vibegron -continue vancomycin and meropenem -patient continues to show clinical improvement. #OLIVER on CKD stage 3-optometric aide elevated at 3.0 on admission from [facility] likely from hypotension/severe sepsis in setting of taking antihypertensives and lasix. Also recently received Bactrim which can elevate optometric aide. Received total of 1.5L NS on admission, gentle IVFs given h/o CHF -hold home lasix, KCl -follow BMP -no further IVFs, can take po, BPs now improved -OLIVER is improving. #Hypomagnesemia-acute on chronic, Mag 1.6 on arrival -replace with IV mag x 2 grams -continue home po mag -resolved. #HFpEF/HTN/CAD s/p LAD stent/Myocardial demand ischemia-dry on admission from sepsis, given 1.5L NS gently due to h/o CHF. Trop mild elevation , no ischemic changes on ECG, no chest pain. -continue Plavix, cut metoprolol in half due to hypotension -statin intolerant -hold home amlodipine and hydralazine due to hypotension #DMII w/ neuropathy-with hyperglycemia in 240s on arrival from acute illness, follows with Endocrine. 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 #COPD/restrictive lung disease/tracheomalacia/Chronic hypoxic respiratory failure-no acute issues, on 2LNC continuously -continue maintenance inhalers, supplemental O2, prn albuterol nebs #Hypothyroidism-TSH mildly low on last check and again here, follows with Endocrine -continue home dose LT4, no changes while acutely ill -f/u TSH as outpt #GERD-no acute issues -continue PPI daily #Alzheimer's dementia/Acute encephalopathy/Depression-with some mild delirium from severe sepsis in setting of moderate dementia, resides in [place] -treat sepsis -supportive care -continue home sertraline, melatonin #Glaucoma-continue home eye drops Family requesting to upgrade diet. DVT Proph-Eliquis, SCDs Dispo-admit to PCU, PT/OT consults palced but is a azeb lift to wheelchair, permanent resident of [place] [facility] Admission and Anticipated Discharge Date Admission Date: August 14, 2024 Subjective 79 yo male reports no new symptoms. Physical Exam Constitutional: WD/WN, vitals as above Eyes: PERRL, conjunctivae normal, anicteric sclerae ENMT: external ear and nose normal, oropharynx normal Neck: trachea midline, no thyromegaly Respiratory: normal respiratory effort, lungs clear to auscultation Cardiovascular: RRR, no murmur, no edema Chest (Breasts): Chest: normal inspection of chest Gastrointestinal (Abdomen): normal bowel sounds, soft, nontender, no hepatosplenomegaly Musculoskeletal: Extremities: extremities normal to inspection; no cyanosis and no clubbing Skin: no rashes, warm and dry Neurologic: moves all extremities and awake; no focal motor deficits Lymphatic: no lymphedema Results & Data Results & Data Vital Signs (Past 12 Hours) Vital Signs Temp Pulse Pulse Pulse Resp BP Pulse Ox 08/16/24 23:01 36.7 C 75 18 157/75 H 93 08/16/24 19:58 36.5 C 60 18 168/79 H 93 08/16/24 15:12 36.7 C 66 18 150/70 H 96 08/16/24 13:24 63 08/16/24 11:46 36.6 C 66 18 145/81 H 95 O2 Del Method 08/16/24 23:01 Room Air 08/16/24 19:58 Room Air 08/16/24 15:12 Room Air 08/16/24 13:24 08/16/24 11:46 Room Air PG Care Time/CCT Total # of Minutes Spent Total Time Spent with Patient: Total time spent is greater than 50% in coordination of care (as documented) at patient's floor/unit and/or counseling patient: Coding Level of Care Code 36823 SUB INP/OBS CARE 3/50MIN Diagnoses Severe sepsis A41.9; R65.20 Catheter-associated urinary tract infection T83.511A; N39.0 OLIVER (acute kidney injury) N17.9 Elevated troponin R79.89
[2024-08-17 07:02] LABS: Hematocrit (blood only) 35.7 % (42.0-52.0); Hemoglobin 11.8 g/dl (14.0-18.0); Mean Corpuscular Hemoglobin 28.2 pg (25.0-34.0); Mean Corpuscular Hgb Conc 33.1 g/dL (32.0-36.0); Mean Corpuscular Volume 85.2 fL (80.0-100.0); Mean Platelet Volume 9.6 fL (9.4-12.4); Platelet Count 214 K/uL (130-400); RDW Coefficient of Variation 14.4 % (11.5-14.5); RDW Standard Deviation 43.8 fL (36.4-46.3); Red Blood Count 4.19 M/uL (4.70-6.10); White Blood Count 9.43 K/ul (4.8-10.8)
[2024-08-17 07:26] LABS: BUN Creatinine Ratio 20.5 (10-20); C Reactive Protein 2.8 mg/dl (0-0.5); Creatinine Clr Calc Pharmacy 40.8 ml/min; Potassium 3.7 mmol/L (3.5-5.1)
[2024-08-17] MEDS: CARBOHYDRATES FOR HYPOGLYCEMIA PO PRN (07:35)
--- NOTE | 2024-08-17 09:49 | Pharmacy Report ---
Pharmacy PK ABX Note - Date of Service August 17, 2024 - Assessment and Plan Assessment 08/17: * Day #4 of Vancomycin and Meropenem. * Urine culture growing E. faecalis, sensitivities pending. * SCr continues to improve, 1.56 mg/dL this AM. * Vanc level today was therapeutic but regimen predicted to be subtherapeutic at steady state. Will increase dose. 08/16: * Day #3 of vancomycin and meropenem. * Vanc level therapeutic this AM but upper end of goal range. Dosing per level but SCr starting to stabilize, 2.18 mg/dL this AM. * No growth in any cultures as of yet. 08/15: * Day #2 of Vancomycin therapy. * Vancomycin level obtained today AM at 05:42 = 17 mcg/ml * Scr = 2.85 mg/dl slightly improved from yesterday. * Urine and blood cultures pending. 08/14: 79 year old M receiving Vancomycin and Meropenem for treatment of empiric sepsis and UTI, respectively. * Day #1 of antimicrobial therapy. Recent urine culture from July 2024 with MRSA and ESBL. * Afebrile. Lactate 2.2, down to 1.1 with fluids. Procal of 0.29. * Blood cultures pending. UA ordered but not yet collected. * OLIVER on CKD. SCr 3.06 mg/dL, CrCl 20.5 mL/min. Baseline SCr somewhere near 2 mg/dL. * Given OLIVER, will forego any further vancomycin dosing outside of 26 mg/kg loading dose given and order a random vancomycin level tomorrow with AM labs. Plan Vancomycin * Current regimen: 750 mg IV every 24 hours * Random level obtained 08/17/24 resulted as 17.9 mcg/mL. This is therapeutic but predicted to be subtherapeutic at steady state with an AUC/SULY of 361 mg/L.hr. * Change to 1000 mg IV every 24 hours. Predicted AUC at steady state: 472 mg/L.hr * Repeat random level ordered for: 08/19/24 Meropenem * 500 mg IV every 8 hours - adjusted for Crcl. Pharmacy will continue to follow and will adjust dose/frequency as necessary. Thank you. Pharmacy has transitioned to AUC monitoring for vancomycin. AUC/SULY is the preferred PK/PD target and is associated with decreased risk of nephrotoxicity compared to traditional trough targets.
[2024-08-17] MEDS ORDERED: VANCOMYCIN 750 MG in SODIUM CHLORIDE 0.9% 250 ML IV SCH (10:00)
[2024-08-17] MEDS: VANCOMYCIN HCL 1,000 MG in SODIUM CHLORIDE 0.9% 250 ML IV SCH (10:44)
[2024-08-17] MEDS: MELATONIN 3 MG TAB PO PRN (21:14)
[2024-08-17] MEDS: LANTUS PER UNIT CHARGE SQ SCH (22:20)
--- NOTE | 2024-08-17 22:39 | Hospitalist Progress Note ---
Date of Service August 17, 2024 Assessment & Plan (1) Severe sepsis: (2) Catheter-associated urinary tract infection: (3) OLIVER (acute kidney injury): (4) Elevated troponin: Plan This patient is an 79-year-old male with a history of dementia, HFpEF, HTN, A- fib, CAD s/p LAD stent, restrictive lung disease, HLD, severe COPD, tracheomalacia, DM 2 with neuropathy, CKD stage III, hypothyroidism, GERD, depression/anxiety, overactive bladder with chronic Lomeli catheter and recent ESBL Klebsiella and MRSA UTI (treated with Bactrim and IV ertapenem), who presents from [facility] with an episode of unresponsiveness, found ot have BP 60s systolic at [facility]. Ambulance called and he was given 1 L NS en route and BPs iproved to 80s-90s systolic in our ED. Pt with dementia and can't recall what happened and says he feels fine. He states "I'm in [place]" an dwife reports he is more confused than baseline dementia. Denies lightheadedness, headache, chest pain, SOB, abd pain, or urinary symptoms. and daughter at bedside report he did c/o some lower abdominal pain a few days ago, prompting an abdominal xray at [facility] which they were told was negative. In the ED, was found to have leukocytosis, hypotension,mildly elevated lactate, OLIVER, and abnormal UA. He was given IV meropenem and Vancomycin, gentle IVFs and had improvement in hypotension. He will be admitted for severe sepsis, CAUTI, and OLIVER. #Severe sepsis/CAUTI-with hypotension, elevated lactate, leukocytosis, and UTI. Chronic Lomeli exchanged / but unclear if UA sample sent before or after Lomeli exchange. BPs improved with NS IVFs. -Bood pressure is stable. -WBC is improving, awaiting culture to nifalize. -continue meropenem and IV Vanco started in ED -showing E. faecalis: however no IV options. -continue tamsulosin, finasteride, Vibegron -continue vancomycin and meropenem -patient continues to show clinical improvement. -will consult ID on sunday #OLIVER on CKD stage 3-supervisor microwave elevated at 3.0 on admission from [facility] likely from hypotension/severe sepsis in setting of taking antihypertensives and lasix. Also recently received Bactrim which can elevate supervisor microwave. Received total of 1.5L NS on admission, gentle IVFs given h/o CHF -hold home lasix, KCl -improving. #Hypomagnesemia-acute on chronic, Mag 1.6 on arrival -replace with IV mag x 2 grams -continue home po mag -resolved. #HFpEF/HTN/CAD s/p LAD stent/Myocardial demand ischemia-dry on admission from sepsis, given 1.5L NS gently due to h/o CHF. Trop mild elevation , no ischemic changes on ECG, no chest pain. -continue Plavix, cut metoprolol in half due to hypotension -statin intolerant -hold home amlodipine and hydralazine due to hypotension #DMII w/ neuropathy-with hyperglycemia in 240s on arrival from acute illness, follows with Endocrine. 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 #COPD/restrictive lung disease/tracheomalacia/Chronic hypoxic respiratory failure-no acute issues, on 2LNC continuously -continue maintenance inhalers, supplemental O2, prn albuterol nebs #Hypothyroidism-TSH mildly low on last check and again here, follows with Endocrine -continue home dose LT4, no changes while acutely ill -f/u TSH as outpt #GERD-no acute issues -continue PPI daily #Alzheimer's dementia/Acute encephalopathy/Depression-with some mild delirium from severe sepsis in setting of moderate dementia, resides in [place] -treat sepsis -supportive care -continue home sertraline, melatonin #Glaucoma-continue home eye drops Family requesting to upgrade diet. DVT Proph-Eliquis, SCDs Dispo-admit to PCU, PT/OT consults palced but is a azeb lift to wheelchair, permanent resident of [facility] Admission and Anticipated Discharge Date Admission Date: August 14, 2024 Subjective Patient reports no new symptoms. Physical Exam Constitutional: WD/WN, vitals as above Eyes: PERRL, conjunctivae normal, anicteric sclerae ENMT: external ear and nose normal, oropharynx normal Neck: trachea midline, no thyromegaly Respiratory: normal respiratory effort, lungs clear to auscultation Cardiovascular: RRR, no murmur, no edema Chest (Breasts): Chest: normal inspection of chest Gastrointestinal (Abdomen): normal bowel sounds, soft, nontender, no hepatosplenomegaly Musculoskeletal: Extremities: extremities normal to inspection; no cyanosis and no clubbing Skin: no rashes, warm and dry Neurologic: moves all extremities and awake; no focal motor deficits Lymphatic: no lymphedema Results & Data Results & Data Vital Signs (Past 12 Hours) Vital Signs Temp Pulse Pulse Resp BP BP Pulse Ox 08/17/24 19:41 36.6 C 61 18 146/71 H 92 08/17/24 15:40 36.9 C 73 18 168/78 H 93 08/17/24 15:27 77 08/17/24 11:40 36.8 C 71 18 171/83 H 94 O2 Del Method 08/17/24 19:41 Room Air 08/17/24 15:40 Room Air 08/17/24 15:27 08/17/24 11:40 Room Air PG Care Time/CCT Total # of Minutes Spent Total Time Spent with Patient: Total time spent is greater than 50% in coordination of care (as documented) at patient's floor/unit and/or counseling patient: Coding Level of Care Code 34136 SUB INP/OBS CARE 3/50MIN Diagnoses Severe sepsis A41.9; R65.20 Catheter-associated urinary tract infection T83.511A; N39.0 OLIVER (acute kidney injury) N17.9 Elevated troponin R79.89
[2024-08-18 07:39] LABS: Basophils # (auto) 0.08 K/uL (0.00-0.20); Basophils % (auto) 0.8 %; Eosinophils # (auto) 0.54 K/uL (0.00-0.50); Eosinophils % (auto) 5.1 %; Hematocrit (blood only) 37.1 % (42.0-52.0); Hemoglobin 11.9 g/dl (14.0-18.0); Immature Granulocytes # (auto) 0.04 K/uL (0.01-0.20); Immature Granulocytes % (auto) 0.4 %; Lymphocytes # (auto) 0.76 K/uL (1.20-3.40); Lymphocytes % (auto) 7.2 %; Mean Corpuscular Hemoglobin 27.6 pg (25.0-34.0); Mean Corpuscular Hgb Conc 32.1 g/dL (32.0-36.0); Mean Corpuscular Volume 86.1 fL (80.0-100.0); Mean Platelet Volume 9.7 fL (9.4-12.4); Monocytes # (auto) 0.57 K/uL (0.11-0.59); Monocytes % (auto) 5.4 %; Neutrophils # (auto) 8.59 K/uL (1.40-6.50); Neutrophils % (auto) 81.1 %; Platelet Count 207 K/uL (130-400); RDW Coefficient of Variation 14.5 % (11.5-14.5); RDW Standard Deviation 45.1 fL (36.4-46.3); Red Blood Count 4.31 M/uL (4.70-6.10); White Blood Count 10.58 K/ul (4.8-10.8)
[2024-08-18 08:11] LABS: BUN Creatinine Ratio 18.9 (10-20); Calcium 9.1 mg/dl (8.6-10.3); Creatinine Clr Calc Pharmacy 35.4 ml/min; Potassium 4.5 mmol/L (3.5-5.1)
[2024-08-18 11:17] LABS: C Reactive Protein 3.4 mg/dl (0-0.5)
[2024-08-18] MEDS ORDERED: VANCOMYCIN CONSULT ACTIVE PRN (18:39)
--- NOTE | 2024-08-18 18:51 | Infectious Disease Consult ---
Date of Consultation August 18, 2024 Assessment & Plan (1) Catheter-associated urinary tract infection: (2) Complicated urinary tract infection: Plan ID Problem List: #UCx + E. faecalis, possible UTI #History of UCx from 07/29 + ESBL Kleb pneumo and MRSA (s/p Bactrim and er tapenem) #Dementia #Antibiotic allergies to: penicillins (facial swelling/rash), amoxicillin (rash), azithromycin Impression: Ramses Petty is a 79-year-old man with a history of dementia, HFpEF, HTN, Afib, CAD s/p LAD stent, restrictive lung disease, HLD, severe COPD, tracheomalacia, T2DM with neuropathy, CKD stage III, hypothyroidism, GERD, depression/anxiety, overactive bladder with chronic Lomeli catheter and recent ESBL Klebsiella and MRSA UTI (treated with Bactrim and ertapenem), who presents from [facility] to [facility] on 08/14/24 with an episode of unr esponsiveness and hypotension, found to have sepsis suspected to be from UTI. The patient has a chronic Lomeli and recent UCx from 08/05 grew ESBL Klebsiella and MRSA, reportedly treated with Bactrim and ertapenem. This presentation, the patient was at [facility], and became unresponsive and found to have SBPs to 60s. The patient was unable to report to the admitting team what happened given his baseline dementia and acutely worsened altered mental status. In the ED, afebrile, WBC 14.37 Cr 3.06 UA >50 WBCs, >50 RBCs. Chronic Lomeli exchanged 08/14 but unclear if UA sample sent before or after Lomeli exchange. He was started on vancomycin and meropenem, then meropenem stopped on 08/17. UCx from 08/14 obtained by straight cath grew only E. faecalis. BCx from 08/14 remain NGTD. Discussion It is not entirely clear what led to the patients hypotension, but UTI/urosepsis suspected. He has a chronic Lomeli (and thus pyuria). However, BCx negative, and UCx with only E. faecalis though uncertain if UCx obtained before or after Lomeli exchange. Pt has been on vancomycin and meropenem, which both have activity against the E. faecalis (which is S-amp). Pt has remained afebrile and WBC has normalized while on abx. Can continue IV vancomycin (penicillin allergy facial swelling and rash, thus will avoid ampicillin), and if discharging can change to PO linezolid to complete the course. Would consider CT A/P to further evaluate GI/ tract. 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 Note that pt had a UCx from 07/29 growing ESBL Kleb pneumo and MRSA which was reportedly treated with Bactrim and ertapenem. The MRSA in the urine may be from a chronic Lomeli, but if it re-grows from any site then would consider further evaluation for endovascular source (can start with TTE); BCx from this admission NGTD. Recommendations: - Continue IV vancomycin for now - If improving and discharging, can change to linezolid 600 mg PO BID to complete a 7-day course (08/1408/20/24) - F/u 08/14 BCx until finalized to ensure negative - Consider CT A/P to further evaluate GI/ tract ID will continue to follow. Zohreh Avery MD, MHS Infectious Diseases [facility]/ID Connect ID Connect direct line: [phone] Consultation Information This patient recommendation is based on a telemedicine consult request which was completed asynchronously through chart review and information provided by the primary physician. The patient was not seen or examined today. The evaluation is consultative in nature and all patient care and treatment decisions can either be accepted or rejected by the patient's primary hospital-based treating physici an using their own independent medical judgment for their patient. District Plant Engineer contact information: Please call ID Connect Call Center . (Phone Number For Physician Use Only) Time Spent Reviewing Chart: 31+ minutes History of Present Illness Reason for Consultation: Possible UTI Attending Physician: Demetris Elizabeth History of Present Illness PLEASE NOTE: E-consult was performed for this visit given that no telepresenter was available at the time of consultation. Ramses Petty is a 79-year-old man with a history of dementia, HFpEF, HTN, Afib, CAD s/p LAD stent, restrictive lung disease, HLD, severe COPD, tracheomalacia, T2DM with neuropathy, CKD stage III, hypothyroidism, GERD, depression/anxiety, overactive bladder with chronic Lomeli catheter and recent ESBL Klebsiella and MRSA UTI (treated with Bactrim and ertapenem), who presents from [facility] to [facility] on 08/14/24 with an episode of unresponsiveness and hypotension, found to have sepsis suspected to be from UTI. The patient has a chronic Lomeli and recent UCx from 08/05 grew ESBL Klebsiella and MRSA, reportedly treated with Bactrim and ertapenem. This presentation, the patient was at [facility], and became unresponsive and found to have SBPs to 60s. The patient was unable to report to the admitting team what happened given his baseline dementia and acutely worsened altered mental status. In the ED, afebrile, WBC 14.37 Cr 3.06 UA >50 WBCs, >50 RBCs. Chronic Lomeli exchanged 08/14 but unclear if UA sample sent before or after Lomeli exchange. He was started on vancomycin and meropenem, then meropenem stopped on 08/17. UCx from 08/14 obtained by straight cath grew only E. faecalis. BCx from 08/14 remain NGTD. Allergies Allergy/AdvReac Type Severity Reaction Status Date / Time Penicillins Allergy Severe FACIAL Verified 08/01/24 13:20 SWELLING AND RASH amoxicillin Allergy Intermediate RASH Verified 08/01/24 13:20 clavulanic acid Allergy Intermediate RASH Verified 08/01/24 13:20 azithromycin Allergy Unknown PER NEPHRO Verified 08/01/24 13:20 NOTE cholestyramine Allergy Unknown per nephro Verified 08/01/24 13:20 note niacin Allergy Unknown per nephro Verified 08/01/24 13:20 note phenylephrine Allergy Unknown per nephro Verified 08/01/24 13:20 note Kwhbbkj-CBB-TtC Reductase AdvReac Intermediate JOINT Verified 08/01/24 13:20 Inhibitor STIFFNESS [Zkdovzz-Tjx-Icd Reductase AND PAIN Inhibitor] Home Medications Medication Instructions Recorded Confirmed Type glucosamine sulfate 500 mg tablet 2 tabs PO QAM 03/13/18 08/14/24 History (Glucosamine) latanoprost 0.005 % eye drops 1 drp OPB HS 03/13/18 08/14/24 History (Xalatan) nitroglycerin 0.4 mg sublingual 0.4 mg sublingual UD PRN Chest 03/12/19 08/14/24 Rx tablet (Nitrostat) Pain #1 btl OneTouch UltraSoft Lancets #400 ea 05/23/19 08/14/24 Rx (lancets) insulin syringe-needle U-100 0.5 #300 ea 08/13/19 08/14/24 Rx mL 31 gauge x 5/16" (BD Insulin Syringe Ultra-Fine) nebulizers (Aeroneb Go Nebulizer) #1 ea 10/04/20 08/14/24 Rx metoprolol succinate 100 mg 100 mg PO QAM #90 tabs 01/02/22 08/14/24 Rx tablet,extended release 24 hr BD Ultra-Fine Short Pen Needle 31 #100 ea 01/17/22 08/14/24 Rx gauge x 5/16" (pen needle, diabetic) blood sugar diagnostic (OneTouch #400 ea 01/23/22 08/14/24 Rx Ultra Test strips) levothyroxine 100 mcg tablet 100 mcg PO DAILYBB 08/08/22 08/14/24 History loratadine 10 mg tablet (Allergy 10 mg PO QAM 03/29/23 08/14/24 History Relief (loratadine)) acetaminophen 500 mg tablet 1,000 mg PO BIDM 07/27/23 08/14/24 History (Tylenol Extra Strength) hydralazine 100 mg tablet 100 mg PO TID 07/27/23 08/14/24 History hydralazine 50 mg tablet 50 mg PO TID 07/27/23 08/14/24 History acetaminophen 325 mg tablet 650 mg PO Q6H PRN PAIN/FEVER >100 08/22/23 08/14/24 History (Tylenol) magnesium oxide 500 mg PO QAM 08/22/23 08/14/24 History pantoprazole 40 mg tablet,delayed 40 mg PO DAILYBB 08/22/23 08/14/24 History release polyethylene glycol 3350 17 gram 17 g PO BIDM 08/22/23 08/14/24 History oral powder packet (Miralax) potassium chloride 20 mEq 20 meq PO QAM 08/22/23 08/14/24 History tablet,extended release thiamine HCl (vitamin B1) 100 mg 200 mg PO BIDM 08/22/23 08/14/24 History tablet melatonin 5 mg tablet 5 mg PO HS 01/22/24 08/14/24 History insulin aspart (niacinamide) 25 unit subcut DAILY 08/01/24 08/14/24 History (U-100) 100 unit/mL subcutaneous solution (Fiasp U-100 Insulin) insulin glargine 100 unit/mL 40 unit subcut HS 08/01/24 08/14/24 History subcutaneous solution (Lantus U-100 Insulin) amlodipine 2.5 mg tablet 2.5 mg PO HS 08/14/24 08/14/24 History apixaban 2.5 mg tablet (Eliquis) 2.5 mg PO BID 08/14/24 08/14/24 History cholecalciferol (vitamin D3) 125 125 mcg PO QAM 08/14/24 08/14/24 History mcg (5,000 unit) tablet (Vitamin D3) clopidogrel 75 mg tablet 75 mg PO Q OTHER DAY 08/14/24 08/14/24 History dorzolamide 2 % eye drops 1 drp OPB [facility] 08/14/24 08/14/24 History finasteride 5 mg tablet 5 mg PO QAM 08/14/24 08/14/24 History fluticasone fur. 100 mcg-umeclid 1 inh inhalation QA 08/14/24 08/14/24 History 62.5 mcg-vilant 25 mcg inhalat.powder (Trelegy Ellipta) fluticasone propionate 50 2 spray intranasal DAILY 08/14/24 08/14/24 History mcg/actuation nasal spray,suspension furosemide 80 mg tablet 80 mg PO QAM 08/14/24 08/14/24 History sertraline 25 mg tablet 25 mg PO HS 08/14/24 08/14/24 History sertraline 50 mg tablet 50 mg PO HS 08/14/24 08/14/24 History tamsulosin 0.4 mg capsule 0.4 mg PO QAM 08/14/24 08/14/24 History vibegron 75 mg tablet (Gemtesa) 75 mg PO QAM 08/14/24 08/14/24 History Patient History Medical History Syncope Seizure-like activity Episode of syncope UTI (urinary tract infection) Pneumonia Dilatation of colon Acute metabolic encephalopathy Multiple fractures of ribs, right side, initial encounter for closed fracture Compression fracture of L1 lumbar vertebra Back pain PAD (peripheral artery disease) Traumatic open wound of lower leg History of restrictive lung disease Chronic systolic CHF (congestive heart failure) Chronic renal failure (CRF), stage 3b OLIVER (acute kidney injury) Diabetes mellitus type 2, uncontrolled Rhabdomyolysis Pneumonia due to COVID-19 virus COVID Acute respiratory failure with hypoxia Diabetic ulcer of right foot Traumatic open wound of right lower leg Diabetic ulcer of toe of left foot associated with type 2 diabetes mellitus, limited to breakdown of skin BPH with obstruction/lower urinary tract symptoms Diabetic ulcer of toe of left foot Chronic diastolic congestive heart failure, NYHA class 2 Bladder cancer COPD exacerbation Dysphagia WALL (dyspnea on exertion) On home O2 2 LPM PRN COPD (chronic obstructive pulmonary disease) CAD (coronary artery disease) follows with Dr. Motley BPH (benign prostatic hyperplasia) Permanent atrial fibrillation Depression (Unknown) CAD (coronary artery disease) Tracheomalacia Resting tremor Exertional shortness of breath Morbid obesity Restrictive lung disease WALL (dyspnea on exertion) Bronchospasm Acute diastolic CHF (congestive heart failure) Diabetes mellitus with neurological manifestations, uncontrolled Diabetic retinopathy, nonproliferative, mild Hypertension Odynophagia Degenerative disc disease History of colon polyps GERD (gastroesophageal reflux disease) Cancer of skin of left ear removed Cancer of skin of back removed Bladder cancer 2014--sx Hearing deficit Alzheimer disease on donepezil Surgical History History of skin surgery removal of basal cell carcinoma from L side of face, 08/24/[address] Velazquez History of colonoscopy History of bladder surgery 2014 bladder tumor removal @ [facility] History of tonsillectomy and adenoidectomy History of bilateral cataract extraction History of cardiac cath x3--2011, 2014, 2017 @ [facility] H/O heart artery stent (2015) 2012 x 1 2015 x 3 2017 x 1 ( showed severe 99 % mid RCA in stent restenoses which was treated with drug-eluting stent) Family History Mother Family history of diabetes mellitus COPD (chronic obstructive pulmonary disease) Lung cancer Father Family history of diabetes mellitus Acute appendicitis Brother Hx of CABG Myocardial infarction Sister Heart disease Myocardial infarction Other Coronary heart disease Denies family history of Ovarian cancer Prostate cancer Kidney disease Breast cancer Colorectal cancer Social History Smoking Status: Unknown if ever smoked Tobacco Type: Cigarettes Age Started Using Tobacco: 14; Age Quit Using Tobacco: 29; packs per day: 1; Second Hand Exposure: No; Do You Dip or Chew Tobacco: No (used to chew tobacco, no longer does ); Hx Alcohol Use: No Hx Substance Use: No Preferred Language: Mongolian Communication Ability: Effective Communication Ability Comment: Pt slow to respond Visual Impairment: Limited Hearing Ability: Hard of Hearing Manager Of It Required: No Beliefs That Will Affect Care: None marital status: Current Living Situation: [facility] current occupational status: retired 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 Other Information That Helps Us Care for You: No Feels Safe at Home: Yes Safety Concerns: Feels Safe At This Time Childhood Exposure to Second-Hand Smoke: Yes Diet: diabetic and ideal protein caffeine: Yes Dental Care, Regularly: No Physical Activity Frequency: Does not Exercise Seatbelt Use: always Sunscreen Use: No Assistive Devices: Mechanical Lift and Oxygen - Continuous Results & Data Vital Signs (Past 12 Hours) Vital Signs Temp Pulse Resp BP Pulse Ox O2 Del Method O2 Flow Rate 08/18/24 15:57 36.8 C 72 18 137/71 96 Oxymask 2 08/18/24 11:00 36.6 C 70 18 159/78 H 96 Room Air 08/18/24 10:00 Nasal Cannula 2 08/18/24 07:34 36.7 C 68 18 181/92 H 98 Nasal Cannula 5 Diagnostic Findings Micro Data: 08/14 UCx straight cath: E. faecalis (S-amp/dapto/vanc/nitrofurantoin) 08/14 BCx x2: NGTD 08/14 MRSA nares: neg prior UCx 07/29/24 UCx: ESBL Kleb pneumo; MRSA Antibiotic Summary: vancomycin (08/14 present) meropenem (08/14/)
--- NOTE | 2024-08-18 22:40 | Hospitalist Progress Note ---
Date of Service August 18, 2024 Assessment & Plan (1) Severe sepsis: (2) Catheter-associated urinary tract infection: (3) OLIVER (acute kidney injury): (4) Elevated troponin: Plan This patient is an 79-year-old male with a history of dementia, HFpEF, HTN, A- fib, CAD s/p LAD stent, restrictive lung disease, HLD, severe COPD, tracheomalacia, DM 2 with neuropathy, CKD stage III, hypothyroidism, GERD, depression/anxiety, overactive bladder with chronic Lomeli catheter and recent ESBL Klebsiella and MRSA UTI (treated with Bactrim and IV ertapenem), who presents from [facility] with an episode of unresponsiveness, found ot have BP 60s systolic at [facility]. Ambulance called and he was given 1 L NS en route and BPs iproved to 80s-90s systolic in our ED. Pt with dementia and can't recall what happened and says he feels fine. He states "I'm in [place]" an dwife reports he is more confused than baseline dementia. Denies lightheadedness, headache, chest pain, SOB, abd pain, or urinary symptoms. and daughter at bedside report he did c/o some lower abdominal pain a few days ago, prompting an abdominal xray at [facility] which they were told was negative. In the ED, was found to have leukocytosis, hypotension,mildly elevated lactate, OLIVER, and abnormal UA. He was given IV meropenem and Vancomycin, gentle IVFs and had improvement in hypotension. He will be admitted for severe sepsis, CAUTI, and OLIVER. #Severe sepsis/CAUTI-with hypotension, elevated lactate, leukocytosis, and UTI. Chronic Lomeli exchanged / but unclear if UA sample sent before or after Lomeli exchange. BPs improved with NS IVFs. -Bood pressure is stable. -WBC is improving, awaiting culture to nifalize. -continue meropenem and IV Vanco started in ED -showing E. faecalis: however no IV options. -continue tamsulosin, finasteride, Vibegron -continue vancomycin and meropenem -patient continues to show clinical improvement. -will consult ID: patient will require ct abd pelvis on sunday. #OLIVER on CKD stage 3-administrative technician elevated at 3.0 on admission from [facility] likely from hypotension/severe sepsis in setting of taking antihypertensives and lasix. Also recently received Bactrim which can elevate administrative technician. Received total of 1.5L NS on admission, gentle IVFs given h/o CHF -hold home lasix, KCl -improving. #Hypomagnesemia-acute on chronic, Mag 1.6 on arrival -replace with IV mag x 2 grams -continue home po mag -resolved. #HFpEF/HTN/CAD s/p LAD stent/Myocardial demand ischemia-dry on admission from sepsis, given 1.5L NS gently due to h/o CHF. Trop mild elevation , no ischemic changes on ECG, no chest pain. -continue Plavix, cut metoprolol in half due to hypotension -statin intolerant -hold home amlodipine and hydralazine due to hypotension #DMII w/ neuropathy-with hyperglycemia in 240s on arrival from acute illness, follows with Endocrine. 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 #COPD/restrictive lung disease/tracheomalacia/Chronic hypoxic respiratory failure-no acute issues, on 2LNC continuously -continue maintenance inhalers, supplemental O2, prn albuterol nebs #Hypothyroidism-TSH mildly low on last check and again here, follows with Endocrine -continue home dose LT4, no changes while acutely ill -f/u TSH as outpt #GERD-no acute issues -continue PPI daily #Alzheimer's dementia/Acute encephalopathy/Depression-with some mild delirium from severe sepsis in setting of moderate dementia, resides in [place] -treat sepsis -supportive care -continue home sertraline, melatonin #Glaucoma-continue home eye drops Family requesting to upgrade diet. DVT Proph-Eliquis, SCDs Dispo-admit to PCU, PT/OT consults palced but is a azeb lift to wheelchair, permanent resident of [facility] Admission and Anticipated Discharge Date Admission Date: August 14, 2024 Subjective 79 yo reports no new symptoms. Physical Exam Constitutional: WD/WN, vitals as above Eyes: PERRL, conjunctivae normal, anicteric sclerae ENMT: external ear and nose normal, oropharynx normal Neck: trachea midline, no thyromegaly Respiratory: normal respiratory effort, lungs clear to auscultation Cardiovascular: RRR, no murmur, no edema Chest (Breasts): Chest: normal inspection of chest Gastrointestinal (Abdomen): normal bowel sounds, soft, nontender, no hepatosplenomegaly Musculoskeletal: Extremities: extremities normal to inspection; no cyanosis and no clubbing Skin: no rashes, warm and dry Neurologic: moves all extremities and awake; no focal motor deficits Lymphatic: no lymphedema Results & Data Results & Data Vital Signs (Past 12 Hours) Vital Signs Temp Pulse Resp BP Pulse Ox O2 Del Method O2 Flow Rate 08/18/24 19:52 36.5 C 80 18 155/79 H 91 Room Air 08/18/24 15:57 36.8 C 72 18 137/71 96 Oxymask 2 08/18/24 11:00 36.6 C 70 18 159/78 H 96 Room Air PG Care Time/CCT Total # of Minutes Spent Total Time Spent with Patient: Total time spent is greater than 50% in coordination of care (as documented) at patient's floor/unit and/or counseling patient: Coding Level of Care Code 22664 SUB INP/OBS CARE 3/50MIN Diagnoses Severe sepsis A41.9; R65.20 Catheter-associated urinary tract infection T83.511A; N39.0 OLIVER (acute kidney injury) N17.9 Elevated troponin R79.89
[2024-08-19 05:40] LABS: Hematocrit (blood only) 36.8 % (42.0-52.0); Hemoglobin 12.2 g/dl (14.0-18.0); Mean Corpuscular Hgb Conc 33.2 g/dL (32.0-36.0); Mean Corpuscular Volume 84.6 fL (80.0-100.0); Mean Platelet Volume 9.6 fL (9.4-12.4); Platelet Count 188 K/uL (130-400); RDW Coefficient of Variation 14.3 % (11.5-14.5); Red Blood Count 4.35 M/uL (4.70-6.10); White Blood Count 11.21 K/ul (4.8-10.8)
[2024-08-19 05:56] LABS: BUN Creatinine Ratio 20.2 (10-20); Calcium 9.1 mg/dl (8.6-10.3); Creatinine Clr Calc Pharmacy 33.9 ml/min; Potassium 4.5 mmol/L (3.5-5.1)
[2024-08-19 07:34] VITALS: RESP 18
[2024-08-19 08:39] LABS: C Reactive Protein 8.02 mg/dl (0-0.5)
--- NOTE | 2024-08-19 09:30 | Pharmacy Report ---
Pharmacy PK ABX Note - Date of Service August 19, 2024 - Assessment and Plan Assessment 08/19: * Day #6 of vancomycin, meropenem discontinued * ID consulted and agrees w/ vancomycin (w/ consideration to change to PO linezolid) to complete 7 day course, which will end tomorrow 08/20/2408/17: * Day #4 of Vancomycin and Meropenem. * Urine culture growing E. faecalis, sensitivities pending. * SCr continues to improve, 1.56 mg/dL this AM. * Vanc level today was therapeutic but regimen predicted to be subtherapeutic at steady state. Will increase dose. 08/16: * Day #3 of vancomycin and meropenem. * Vanc level therapeutic this AM but upper end of goal range. Dosing per level but SCr starting to stabilize, 2.18 mg/dL this AM. * No growth in any cultures as of yet. 08/15: * Day #2 of Vancomycin therapy. * Vancomycin level obtained today AM at 05:42 = 17 mcg/ml * Scr = 2.85 mg/dl slightly improved from yesterday. * Urine and blood cultures pending. 08/14: 79 year old M receiving Vancomycin and Meropenem for treatment of empiric sepsis and UTI, respectively. * Day #1 of antimicrobial therapy. Recent urine culture from July 2024 with MRSA and ESBL. * Afebrile. Lactate 2.2, down to 1.1 with fluids. Procal of 0.29. * Blood cultures pending. UA ordered but not yet collected. * OLIVER on CKD. SCr 3.06 mg/dL, CrCl 20.5 mL/min. Baseline SCr somewhere near 2 mg/dL. * Given OLIVER, will forego any further vancomycin dosing outside of 26 mg/kg loading dose given and order a random vancomycin level tomorrow with AM labs. Plan Vancomycin * Current regimen: 1000 mg IV every 24 hours * Random level obtained 08/19/24 resulted as 16.1 mcg/mL. This is predicted to achieve target AUC/SULY of 400-600 mg/L.hr * Predicted AUC at steady state: 499 mg/L.hr * Continue 1000 mg IV every 24 hours * Likely will not require any future levels if therapy completes tomorrow Pharmacy will continue to follow and will adjust dose/frequency as necessary. Thank you. Pharmacy has transitioned to AUC monitoring for vancomycin. AUC/SULY is the preferred PK/PD target and is associated with decreased risk of nephrotoxicity compared to traditional trough targets.
[2024-08-19] MEDS: SODIUM CHLORIDE 0.9% 1,000 ML IV SCH (09:45)
[2024-08-19] MEDS: OPTIRAY 320 100ml IV ONE (11:37)
--- NOTE | 2024-08-19 11:52 | CT Scan Report ---
CT SCAN OF THE ABDOMEN AND PELVIS WITH IV CONTRAST CLINICAL HISTORY: Dysuria. COMPARISON STUDY: CT of the abdomen and pelvis August 22, 2022. Abdominal series August 29, 2022. TECHNIQUE: Following the IV administration of 94 cc of Optiray 320, CT scan of the abdomen and pelvi s is performed from the lung bases to the proximal femora. Images are reviewed in the axial, sagittal , and coronal planes. IV contrast was administered without complication. A dose lowering technique wa s utilized adhering to the principles of ALARA. Oral contrast was administered. CT DOSE: 1404.97 mGy.cm FINDINGS: Cardiomegaly and small bilateral pleural effusions are incidentally noted within the visual ized lower chest. Ground glass opacities within the lower lungs are present. These may represent atel ectasis or mild pulmonary edema. There is mild interlobular septal thickening. No pneumatosis, free a ir or portal venous gas is present. No suspicious hepatic lesions are present. No biliary or pancreat ic ductal dilatation. Spleen, adrenal glands and pancreas are unremarkable. Lomeli balloon within the bladder is noted. There is bladder wall thickening with adjacent stranding. There is a small amount o f gas within the bladder. Presacral and perirectal stranding is noted. Low-attenuation bilateral ashley l lesions favor cysts. There is moderate bilateral renal cortical thinning. No urinary calculi. There is no evidence for a bowel obstruction. There is a a moderate to large amount of stool within the co brandyn and rectum. No evidence for acute appendicitis. There are no fluid collections. There is no lymph adenopathy. L1 compression fracture is again noted with interval increase in vertebral body height lo ss. There is 90% loss of vertebral body height with moderate retropulsion at the inferior endplate. A horizontal fracture through anterior osteophytes and the anterior cortex of T12 vertebral body is ne w since prior exam. This is probably subacute. Anterolisthesis of L5 on S1 is unchanged. This is due to bilateral L5 pars defects. IMPRESSION: 1. No urinary calculi or hydronephrosis. Bladder wall thickening with adjacent stranding which could be correlated with urinalysis. 2. Large amount of stool within the rectum and moderate amount of stool within the colon. No evidence for a bowel obstruction. 3. Mild stranding within the pelvis. This is nonspecific and may be related to the bladder. No fluid collections. 4. Cardiomegaly with mild pulmonary edema and small bilateral pleural effusions. 5. Severe L1 compression fracture with interval increase in vertebral body height loss since CT of Ap ril 2022. Moderate retropulsion. 6. Horizontal fracture through anterior osteophytes and anterior cortex and superior endplate of T12 which is new since prior CT but likely subacute. ACT 112: Negative or not required by law. Electronically signed by: Dangelo Farfan M.D. 08/19/2024 11:50 AM
--- NOTE | 2024-08-19 14:57 | Infectious Disease Progress Nt ---
Date of Service August 19, 2024 Assessment & Plan (1) Catheter-associated urinary tract infection: (2) Complicated urinary tract infection: Plan ID Problem List: #UCx + E. faecalis, possible UTI #History of UCx from 07/29 + ESBL Kleb pneumo and MRSA (s/p Bactrim and e rtapenem) #Dementia #Antibiotic allergies to: penicillins (facial swelling/rash), amoxicillin (rash), azithromycin Impression: Ramses Petty is a 79-year-old man with a history of dementia, HFpEF, HTN, Afib, CAD s/p LAD stent, restrictive lung disease, HLD, severe COPD, tracheomalacia, T2DM with neuropathy, CKD stage III, hypothyroidism, GERD, depression/anxiety, overactive bladder with chronic Lomeli catheter and recent ESBL Klebsiella and MRSA UTI (treated with Bactrim and ertapenem), who presents from [facility] to [facility] on 08/14/24 with an episode of un responsiveness and hypotension, found to have sepsis suspected to be from UTI. The patient has a chronic Lomeli and recent UCx from 08/05 grew ESBL Klebsiella and MRSA, reportedly treated with Bactrim and ertapenem. This presentation, the patient was at [facility], and became unresponsive and found to have SBPs to 60s. The patient was unable to report to the admitting team what happened given his baseline dementia and acutely worsened altered mental status. In the ED, afebrile, WBC 14.37 Cr 3.06 UA >50 WBCs, >50 RBCs. Chronic Lomeli exchanged 08/14 but unclear if UA sample sent before or after Lomeli exchange. He was started on vancomycin and meropenem, then meropenem stopped on 08/17. UCx from 08/14 obtained by straight cath grew only E. faecalis. BCx from 08/14 remain NGTD. Discussion It is not entirely clear what led to the patients hypotension, but UTI/urosepsis suspected. He has a chronic Lomeli (and thus pyuria). However, BCx negative, and UCx with only E. faecalis though uncertain if UCx obtained before or after Lomeli exchange. Pt has been on vancomycin and meropenem, which both have activity against the E. faecalis (which is S-amp). Pt has remained afebrile and WBC has normalized while on abx. Can continue IV vancomycin (penicillin allergy facial swelling and rash, thus will avoid ampicillin), and if discharging can change to PO linezolid to complete the course. 08/19 CT A/P without urinary calculi or hydronephrosis; showed bladder wall thickening with adjacent stranding and mild stranding within pelvis possibly related to the bladder; also L1 compression fracture with moderate retropulsion. 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 Note that pt had a UCx from 07/29 growing ESBL Kleb pneumo and MRSA which was reportedly treated with Bactrim and ertapenem. The MRSA in the urine may be from a chronic Lomeli, but if it re-grows from any site then would consider further evaluation for endovascular source (can start with TTE); BCx from this admission NGTD. Recommendations: - Continue IV vancomycin for now. If improving and discharging, can change to linezolid 600 mg PO BID to complete a 7-day course (08/1408/20/24) - F/u 08/14 BCx until finalized to ensure negative - Ensure close follow up with primary care Thank you for letting ID participate in the care of this patient. ID will sign off at this time. If questions, please contact [facility] at [phone]. Zohreh Avery MD, S Infectious Diseases [facility]/ID Connect ID Connect direct line: [phone] Admission and Anticipated Discharge Date Admission Date: August 14, 2024 Subjective This patient recommendation is based on a telemedicine consult request which was completed asynchronously through chart review and information provided by the primary physician. The patient was not seen or examined today. The evaluation is consultative in nature and all patient care and treatment decisions can either be accepted or rejected by the patient's primary hospital-based treating physician using their own independent medical judgment for their patient. Time Spent Reviewing Chart: 21 - 30 minutes - Afebrile, WBC 11.21 Results & Data Vital Signs (Past 12 Hours) Vital Signs Temp Pulse Resp BP Pulse Ox O2 Del Method 08/19/24 12:03 174/86 H 08/19/24 10:00 Room Air 08/19/24 07:33 36.9 C 85 18 177/96 H 93 Room Air 08/19/24 03:00 36.4 C L 81 16 174/81 H 93 Room Air Diagnostic Findings Diagnostics: 08/19 CT A/P 1. No urinary calculi or hydronephrosis. Bladder wall thickening with adjacent stranding which could be correlated with urinalysis. 2. Large amount of stool within the rectum and moderate amount of stool within the colon. No evidence for a bowel obstruction. 3. Mild stranding within the pelvis. This is nonspecific and may be related to the bladder. No fluid collections. 4. Cardiomegaly with mild pulmonary edema and small bilateral pleural effusions. 5. Severe L1 compression fracture with interval increase in vertebral body height loss since CT of August 22, 2022. Moderate retropulsion. 6. Horizontal fracture through anterior osteophytes and anterior cortex and superior endplate of T12 which is new since prior CT but likely subacute. Micro Data: 08/14 UCx straight cath: E. faecalis (S-amp/dapto/vanc/nitrofurantoin) 08/14 BCx x2: NGTD 08/14 MRSA nares: neg prior UCx 07/29/24 UCx: ESBL Kleb pneumo; MRSA Antibiotic Summary: vancomycin (08/14 present) meropenem (08/14/)
[2024-08-19] MEDS: SOD PHOSPHATE/SOD BIPHOSPHATE ENEMA 132 ML BTL PR STA (15:53)
[2024-08-19] MEDS: amLODIPine BESYLATE 5 MG TAB PO ONE (18:36)
[2024-08-19] MEDS: hydrALAZINE TAB 50 MG TAB PO SCH (21:28)
--- NOTE | 2024-08-19 22:49 | Hospitalist Progress Note ---
Date of Service August 19, 2024 Assessment & Plan (1) Severe sepsis: (2) Catheter-associated urinary tract infection: (3) OLIVER (acute kidney injury): (4) Elevated troponin: Plan This patient is an 79-year-old male with a history of dementia, HFpEF, HTN, A- fib, CAD s/p LAD stent, restrictive lung disease, HLD, severe COPD, tracheomalacia, DM 2 with neuropathy, CKD stage III, hypothyroidism, GERD, depression/anxiety, overactive bladder with chronic Lomeli catheter and recent ESBL Klebsiella and MRSA UTI (treated with Bactrim and IV ertapenem), who presents from [facility] with an episode of unresponsiveness, found ot have BP 60s systolic at [facility]. Ambulance called and he was given 1 L NS en route and BPs iproved to 80s-90s systolic in our ED. Pt with dementia and can't recall what happened and says he feels fine. He states "I'm in [place]" an dwife reports he is more confused than baseline dementia. Denies lightheadedness, headache, chest pain, SOB, abd pain, or urinary symptoms. and daughter at bedside report he did c/o some lower abdominal pain a few days ago, prompting an abdominal xray at [facility] which they were told was negative. In the ED, was found to have leukocytosis, hypotension,mildly elevated lactate, OLIVER, and abnormal UA. He was given IV meropenem and Vancomycin, gentle IVFs and had improvement in hypotension. He will be admitted for severe sepsis, CAUTI, and OLIVER. #Severe sepsis/CAUTI-with hypotension, elevated lactate, leukocytosis, and UTI. Chronic Lomeli exchanged 08/14 but unclear if UA sample sent before or after Lomeli exchange. BPs improved with NS IVFs. -Bood pressure is stable. -WBC is improving, awaiting culture to nifalize. -continue meropenem and IV Vanco started in ED -showing E. faecalis: however no IV options. -continue tamsulosin, finasteride, Vibegron -continue vancomycin and meropenem -patient continues to show clinical improvement. -reviewed CT abd/pelvis was negative. will complete antibiotic in AM of 08/20 Metabolic encephalopathy resolved Pt with severe sepsis, ATN, CAUTI presents with encephalopathy. 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 Also recently received Bactrim which can elevate branch sales and service representative. Received total of 1.5L NS on admission, gentle IVFs given h/o CHF -hold home lasix, KCl -improving. -creatinine stable. #Hypomagnesemia-acute on chronic, Mag 1.6 on arrival -replace with IV mag x 2 grams -continue home po mag -resolved. #HFpEF/HTN/CAD s/p LAD stent/Myocardial demand ischemia-dry on admission from sepsis, given 1.5L NS gently due to h/o CHF. Trop mild elevation , no ischemic changes on ECG, no chest pain. -continue Plavix, cut metoprolol in half due to hypotension -statin intolerant -hold home amlodipine and hydralazine due to hypotension #DMII w/ neuropathy-with hyperglycemia in 240s on arrival from acute illness, follows with Endocrine. 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 #COPD/restrictive lung disease/tracheomalacia/Chronic hypoxic respiratory failure-no acute issues, on 2LNC continuously -continue maintenance inhalers, supplemental O2, prn albuterol nebs #Hypothyroidism-TSH mildly low on last check and again here, follows with Endocrine -continue home dose LT4, no changes while acutely ill -f/u TSH as outpt #GERD-no acute issues -continue PPI daily #Alzheimer's dementia/Acute encephalopathy/Depression-with some mild delirium from severe sepsis in setting of moderate dementia, resides in [place] -treat sepsis -supportive care -continue home sertraline, melatonin #Glaucoma-continue home eye drops Family requesting to upgrade diet. DVT Proph-Eliquis, SCDs Admission and Anticipated Discharge Date Admission Date: August 14, 2024 Subjective 79 yo male reports no new symptoms Physical Exam Constitutional: WD/WN, vitals as above Eyes: PERRL, conjunctivae normal, anicteric sclerae ENMT: external ear and nose normal, oropharynx normal Neck: trachea midline, no thyromegaly Respiratory: normal respiratory effort, lungs clear to auscultation Cardiovascular: RRR, no murmur, no edema Chest (Breasts): Chest: normal inspection of chest Gastrointestinal (Abdomen): normal bowel sounds, soft, nontender, no hepatosplenomegaly Musculoskeletal: Extremities: extremities normal to inspection; no cyanosis and no clubbing Skin: no rashes, warm and dry Neurologic: moves all extremities and awake; no focal motor deficits Lymphatic: no lymphedema Results & Data Results & Data Vital Signs (Past 12 Hours) Vital Signs Temp Pulse Resp BP Pulse Ox O2 Del Method O2 Flow Rate 08/19/24 17:21 175/77 H 08/19/24 15:51 36.8 C 63 18 171/50 H 97 Nasal Cannula 2 08/19/24 12:03 174/86 H PG Care Time/CCT Total # of Minutes Spent Total Time Spent with Patient: Total time spent is greater than 50% in coordination of care (as documented) at patient's floor/unit and/or counseling patient: Coding Level of Care Code 02581 SUB INP/OBS CARE 3/50MIN Diagnoses Severe sepsis A41.9; R65.20 Catheter-associated urinary tract infection T83.511A; N39.0 OLIVER (acute kidney injury) N17.9 Elevated troponin R79.89
[2024-08-19 23:15] VITALS: O2SAT 92
[2024-08-20 07:36] LABS: Hemoglobin 11.6 g/dl (14.0-18.0); Mean Corpuscular Hemoglobin 28.3 pg (25.0-34.0); Mean Corpuscular Hgb Conc 33.1 g/dL (32.0-36.0); Mean Corpuscular Volume 85.4 fL (80.0-100.0); Platelet Count 191 K/uL (130-400); RDW Coefficient of Variation 14.6 % (11.5-14.5); RDW Standard Deviation 44.7 fL (36.4-46.3)
[2024-08-20 07:39] VITALS: TEMP 97.3
[2024-08-20 08:04] LABS: BUN Creatinine Ratio 20.6 (10-20); C Reactive Protein 8.96 mg/dl (0-0.5); Calcium 9.1 mg/dl (8.6-10.3); Creatinine Clr Calc Pharmacy 39.7 ml/min; Potassium 4.5 mmol/L (3.5-5.1)
--- NOTE | 2024-08-20 09:41 | Discharge Summary ---
Discharge Summary Date of Service August 20, 2024 Principal Dx & Hospital Course #1 = Principal Diagnosis (1) Severe sepsis: (2) Catheter-associated urinary tract infection: (3) OLIVER (acute kidney injury): (4) Elevated troponin: Plan This patient is an 79-year-old male with a history of dementia, HFpEF, HTN, A- fib, CAD s/p LAD stent, restrictive lung disease, HLD, severe COPD, tracheomalacia, DM 2 with neuropathy, CKD stage III, hypothyroidism, GERD, depression/anxiety, overactive bladder with chronic Lomeli catheter and recent ESBL Klebsiella and MRSA UTI (treated with Bactrim and IV ertapenem), who presents from [facility] with an episode of unresponsiveness, found ot have BP 60s systolic at [facility]. Ambulance called and he was given 1 L NS en route and BPs iproved to 80s-90s systolic in our ED. Pt with dementia and can't recall what happened and says he feels fine. He states "I'm in [place]" an dwife reports he is more confused than baseline dementia. Denies lightheadedness, headache, chest pain, SOB, abd pain, or urinary symptoms. and daughter at bedside report he did c/o some lower abdominal pain a few days ago, prompting an abdominal xray at [facility] which they were told was negative. In the ED, was found to have leukocytosis, hypotension,mildly elevated lactate, OLIVER, and abnormal UA. He was given IV meropenem and Vancomycin, gentle IVFs and had improvement in hypotension. He will be admitted for severe sepsis, CAUTI, and OLIVER. #Severe sepsis/CAUTI-with hypotension, elevated lactate, leukocytosis, and UTI. Chronic Lomeli exchanged 4/3 Patient treated with for E. faecalis and required 7 days of IV vancomycin. -Blood pressure is stable. -WBC is improving, as well as patient having clinical improvement. -continue tamsulosin, finasteride, Vibegron -reviewed CT abd/pelvis was negative for any abnormlaities in the urinary system which could explain his UTI. -Appreciate input from ID. Metabolic encephalopathy resolved Pt with severe sepsis, ATN, CAUTI presents with encephalopathy. Risk Factor(s): As above, AMS Treatment: as above. 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 Also recently received Bactrim which can elevate volleyball coach. Received total of 1.5L NS on admission, gentle IVFs given h/o CHF -held home lasix, KCl -improving. -creatinine stable. resume at discharge. #Hypomagnesemia-acute on chronic, Mag 1.6 on arrival -replace with IV mag x 2 grams -continue home po mag -resolved. #HFpEF/HTN/CAD s/p LAD stent/Myocardial demand ischemia-dry on admission from sepsis, given 1.5L NS gently due to h/o CHF. Trop mild elevation , no ischemic changes on ECG, no chest pain. -continue Plavix, cut metoprolol in half due to hypotension -statin intolerant -hold home amlodipine and hydralazine due to hypotension #DMII w/ neuropathy-with hyperglycemia in 240s on arrival from acute illness, follows with Endocrine. -resume home meds #PAF on Eliquis-more likely permanent Afib, rates controlled -monitor on tele -continue metoprolol but decrease to 50mg daily given admitting hypotension, hold parameters -continue renally dosed Eliquis -electrolytes were replaced. #COPD/restrictive lung disease/tracheomalacia/Chronic hypoxic respiratory failure-no acute issues, on 2LNC continuously -continue maintenance inhalers, supplemental O2, prn albuterol nebs #Hypothyroidism-TSH mildly low on last check and again here, follows with Endocrine -continue home dose LT4, no changes while acutely ill -f/u TSH as outpt #GERD-no acute issues -continue PPI daily #Alzheimer's dementia/Acute encephalopathy/Depression-with some mild delirium from severe sepsis in setting of moderate dementia, resides in [place] -treat sepsis -supportive care -continue home sertraline, melatonin #Glaucoma-continue home eye drops Admission HPI Per Admitting Provider This patient is an 79-year-old male with a history of dementia, HFpEF, HTN, A- fib, CAD s/p LAD stent, restrictive lung disease, HLD, severe COPD, tracheomalacia, DM 2 with neuropathy, CKD stage III, hypothyroidism, GERD, depression/anxiety, overactive bladder with chronic Lomeli catheter and recent ESBL Klebsiella and MRSA UTI (treated with Bactrim and IV ertapenem), who presents from [facility] with an episode of unresponsiveness, found ot have BP 60s systolic at [facility]. Ambulance called and he was given 1 L NS en ro stebbins and BPs iproved to 80s-90s systolic in our ED. Pt with dementia and can't recall what happened and says he feels fine. He states "I'm in [place]" an dwife reports he is more confused than baseline dementia. Denies lightheadedness, headache, chest pain, SOB, abd pain, or urinary symptoms. and daughter at bedside report he did c/o some lower abdominal pain a few days ago, prompting an abdominal xray at [facility] which they were told was negative. In the ED, was found to have leukocytosis, hypotension,mildly elevated lactate, OLIVER, and abnormal UA. He was given IV meropenem and Vancomycin, gentle IVFs and had improvement in hypotension. He will be admitted for severe sepsis, CAUTI, and OLIVER. Discharge Exam Constitutional WD/WN, vitals as above Eyes PERRL, conjunctivae normal, anicteric sclerae ENMT external ear and nose normal, oropharynx normal Neck trachea midline, no thyromegaly Respiratory normal respiratory effort, lungs clear to auscultation Cardiovascular RRR, no murmur, no edema Chest (Breasts) Chest: normal inspection of chest Gastrointestinal (Abdomen) normal bowel sounds, soft, nontender, no hepatosplenomegaly Musculoskeletal Extremities: extremities normal to inspection; no cyanosis and no clubbing Skin no rashes, warm and dry Neurologic moves all extremities and awake; no focal motor deficits Lymphatic no lymphedema Discharge Plan Discharge Items Patient Disposition: Transfer [facility] Fac Reason For Visit: SEVERE SEPSIS Discharge Diagnosis: SEVERE SEPSIS Activity: Resume your previous activity Non-emergency contact: Primary Care Provider Call non-emergency contact if: you have any medication questions Follow-up/Referrals: [facility] [Primary Care Provider] - Diet: Carb Consistent or DM2 and Low Sodium (2gm) Diet Texture: Easy to Chew Addtl Attending Provider Instructions: You were treated for a UTI. This was successfully treated during your hospital stay. No further antibiotics are required. Continue miralax in the short term until patient has normal Bowel movement. Please followup with PCP in 1-2 weeks Pending Studies at Discharge: No Stand-Alone Forms: [facility]), Smoking Cessation Medications and DC Order Prescriptions: New polyethylene glycol 3350 [Miralax] 17 gram/dose powder 17 g PO BID PRN (Reason: constipation) Qty: 119 0RF Continued (DME) insulin syringe-needle U-100 [BD Insulin Syringe Ultra-Fine] 0.5 mL 31 gauge x 5/16" syringe See Rx Instructions .ROUTE .MEDSUPPLY Qty: 300 3RF Rx Instructions: Three times a day metoprolol succinate 100 mg tablet extended release 24 hr 100 mg PO QAM Qty: 90 3RF Rx Instructions: HOLD FOR SBP <100, OR DBP <70 (DME) pen needle, diabetic [BD Ultra-Fine Short Pen Needle] 31 gauge x 5/16" needle See Rx Instructions .ROUTE .MEDSUPPLY Qty: 100 3RF Rx Instructions: One daily ([facility]) OneTouch Ultra Test Strip See Rx Instructions .Route Qty: 400 3RF Rx Instructions: Test blood sugars 4 times a day nitroglycerin [Nitrostat] 0.4 mg tablet, sublingual 0.4 mg Sublingual UD PRN (Reason: Chest Pain) Qty: 1 5RF Rx Instructions: TAKES 1 TAB UNDER TONGUE EVERY 5 MINUTES NEEDED x3 doses..if not relief call levothyroxine 100 mcg tablet 100 mcg PO DAILYBB (DME) Aeroneb Go Nebulizer Misc See Rx Instructions .MEDSUPPLY Qty: 1 0RF Rx Instructions: With tubing and supplies. J44.9. J45.9. ([facility]) lancets [OneTouch UltraSoft Lancets] Misc See Rx Instructions .ROUTE .MEDSUPPLY Qty: 400 3RF Rx Instructions: Test blood sugar four times a day loratadine [Allergy Relief (loratadine)] 10 mg tablet 10 mg PO QAM hydralazine 100 mg tablet 100 mg PO TID Rx Instructions: TOTAL DOSE 150 MG--TAKES WITH 50 MG TAB. HOLD FOR SBP <100, DBP <70 acetaminophen [Tylenol Extra Strength] 500 mg tablet 1,000 mg PO BIDM hydralazine 50 mg tablet 50 mg PO TID Rx Instructions: TOTAL DOSE 150 MG--TAKES WITH 100 MG TAB. HOLD FOR SBP <100, DBP <70 Fiasp U-100 Insulin 100 unit/mL solution 25 unit subcut DAILY Rx Instructions: Inject 5 units with breakfast, 10 units with lunch and dinner; TDD 25 units melatonin 5 mg tablet 5 mg PO HS insulin glargine [Lantus U-100 Insulin] 100 unit/mL solution 40 unit subcut HS latanoprost [Xalatan] 0.005 % Drops 1 drp OPB HS glucosamine sulfate [Glucosamine] 500 mg Tablet 2 tabs PO QAM acetaminophen [Tylenol] 325 mg Tablet 650 mg PO Q6H PRN (Reason: PAIN/FEVER >100) magnesium oxide 500 mg magnesium Tablet 500 mg PO QAM polyethylene glycol 3350 [Miralax] 17 gram powder in packet 17 g PO BIDM thiamine HCl (vitamin B1) 100 mg tablet 200 mg PO BIDM pantoprazole 40 mg tablet,delayed release (DR/EC) 40 mg PO DAILYBB potassium chloride 20 mEq tablet extended release 20 meq PO QAM amlodipine 2.5 mg tablet 2.5 mg PO HS Rx Instructions: HOLD FOR SBP<100,DBP<70 clopidogrel 75 mg tablet 75 mg PO Q OTHER DAY cholecalciferol (vitamin D3) [Vitamin D3] 125 mcg (5,000 unit) Tablet 125 mcg PO QAM dorzolamide 2 % drops 1 drp OPB AMHS Eliquis 2.5 mg tablet 2.5 mg PO BID furosemide 80 mg tablet 80 mg PO QAM fluticasone propionate 50 mcg/actuation spray,suspension 2 spray INTRANASAL DAILY Rx Instructions: take for 1 month start 08/09/24 Gemtesa 75 mg tablet 75 mg PO QAM finasteride 5 mg tablet 5 mg PO QAM sertraline 25 mg Tablet 25 mg PO HS Rx Instructions: take with 50mg sertraline 50 mg Tablet 50 mg PO HS Rx Instructions: take with 25mg tamsulosin 0.4 mg capsule 0.4 mg PO QAM Trelegy Ellipta 100-62.5-25 mcg blister with device 1 inh inhalation QAM Discharge Orders: Discharge Order (Routine); Ordered 08/20/24 Ordered By: Demetris Elizabeth Admission Data Admit Date/Time: 08/14/24 17:32 Attending Provider: Demetris Elizabeth Admit Provider: Ryann Min Primary Care Provider: [facility] [place] Other Providers: Zohreh Avery; [facility] [place] Other Interventions: Discharge Summary Assessment (RN) Last Done: 08/20/24 10:10 Hospital Stay Data Consultations 08/14/24 15:43 ED Decision to Admit Stat 08/18/24 10:28 Consult Infectious Diseases Routine Diagnostic Imagining Performed 08/19/24 09:11 CT Abd and Pelvis [CT abd pelvis oral and IV con] Urgent Pending Results Patient Have Any Pending Studies at Discharge: No Discharge Instructions Given to Patient (Per Discharging Provider) You were treated for a UTI. This was successfully treated during your hospital stay. No further antibiotics are required. Continue miralax in the short term until patient has normal Bowel movement. Please followup with PCP in 1-2 weeks Total Time Total Time Spent Total Time Spent (In Minutes): 32 Coding Level of Care Code 15843 INP/OBS DISCH >30 MIN Diagnoses Severe sepsis A41.9; R65.20 Catheter-associated urinary tract infection T83.511A; N39.0 OLIVER (acute kidney injury) N17.9 Elevated troponin R79.89
[2024-08-20 10:11] VITALS: PULSE 66
[2024-08-20 12:18] VITALS: BP 135/73
== END 2024-08-20 13:22 | DRG 871 ==
LOC: ED 13:37 → EDINP 17:32 → SUATTDRO 17:32 → 2S 19:59
DX: Z88.1 Allergy status to other antibiotic agents; J39.8 Other specified diseases of upper respiratory tract; K21.9 Gastro-esophageal reflux disease without esophagitis; F02.B3 Dementia in other diseases classified elsewhere, moderate, with mood disturbance; Z99.81 Dependence on supplemental oxygen; Z88.8 Allergy status to other drugs, medicaments and biological substances; E11.22 Type 2 diabetes mellitus with diabetic chronic kidney disease; H40.9 Unspecified glaucoma; A41.81 Sepsis due to Enterococcus; E83.42 Hypomagnesemia; Z79.02 Long term (current) use of antithrombotics/antiplatelets; I24.89 Other forms of acute ischemic heart disease; Y84.6 Urinary catheterization as the cause of abnormal reaction of the patient, or of later complication, without mention of misadventure at the time of the procedure; Z79.4 Long term (current) use of insulin; E11.42 Type 2 diabetes mellitus with diabetic polyneuropathy; Z86.14 Personal history of Methicillin resistant Staphylococcus aureus infection; I11.0 Hypertensive heart disease with heart failure; Z79.890 Hormone replacement therapy; N39.0 Urinary tract infection, site not specified; I25.10 Atherosclerotic heart disease of native coronary artery without angina pectoris; R65.20 Severe sepsis without septic shock; I50.32 Chronic diastolic (congestive) heart failure; G30.9 Alzheimer's disease, unspecified; I48.21 Permanent atrial fibrillation; E03.9 Hypothyroidism, unspecified; J44.9 Chronic obstructive pulmonary disease, unspecified; Z79.899 Other long term (current) drug therapy; Z95.5 Presence of coronary angioplasty implant and graft; Y73.1 Therapeutic (nonsurgical) and rehabilitative gastroenterology and urology devices associated with adverse incidents; R21 Rash and other nonspecific skin eruption; E11.65 Type 2 diabetes mellitus with hyperglycemia; N18.30 Chronic kidney disease, stage 3 unspecified; Z88.0 Allergy status to penicillin; Z79.51 Long term (current) use of inhaled steroids; N17.0 Acute kidney failure with tubular necrosis; Z79.01 Long term (current) use of anticoagulants; G93.41 Metabolic encephalopathy; J96.11 Chronic respiratory failure with hypoxia; Z87.440 Personal history of urinary (tract) infections; T83.511A Infection and inflammatory reaction due to indwelling urethral catheter, initial encounter